=== PATIENT | male | born 1950 | race Caucasian/White ===

== ENCOUNTER 2017-06-20 09:58 | Emergency (ER) | payer MEDICARE, OTHER, SELFPAY ==
[2017-06-20 10:00] VITALS: BP 157/87; PULSE 80; RESP 17; TEMP 36.5; O2SAT 98; BMI 34.7
--- NOTE | 2017-06-20 10:08 | CT_ITS ---
STUDY: CT BRAIN WITHOUT CONTRAST REASON FOR EXAM: Male, 67 years old. Altered mental status. RADIATION DOSAGE (If Supplied By Facility): CTDIvol = ( 44.99 ) mGy, DLP = ( 812.98 ) mGycm TECHNIQUE: Transaxial CT imaging of the brain was performed without administration of intravenous contrast material. Individualized dose optimization techniques were used for this CT. COMPARISON: None. FINDINGS: Artifact from metallic earrings overlying the left earlobe. Normal calvarium. There is mild cerebral atrophy with widening of the extra-axial spaces and ventricular dilatation. Normal white matter tracts of the cerebral hemispheres. Normal basal ganglia and thalami. Normal brainstem. Normal cerebellum. There is no intracranial hemorrhage. There are no findings of an acute ischemic infarction. Normal visualized paranasal sinuses. CT/Brain/Head without Contrast IMPRESSION: Chronic involutional changes of the brain. Electronically Signed: Keagan Long MD at 11:21 EDT Tel [phone], Service support ,
--- NOTE | 2017-06-20 10:08 | RAD_ITS ---
STUDY: X-RAY CHEST REASON FOR EXAM: Male, 67 years old. Shortness of breath and dyspnea. TECHNIQUE: Single AP portable view of the chest. COMPARISON: Comparison is made with prior study dated June 28, 2015. FINDINGS: EKG electrodes are seen. The lungs are clear and expanded. There is no demonstrated pleural abnormality. Sternal cerclage wires and vascular clips are present from a prior sternotomy and coronary artery bypass graft procedure (CABG). Normal mediastinum and ursula. Normal visualized pulmonary arteries. Normal visualized aortic arch and descending thoracic aorta. There are diffuse degenerative changes of the visualized thoracic spine. Normal visualized ribs, clavicles, and shoulders. There is no demonstrated abnormality of the visualized soft tissue structures of the upper abdomen. RAD/Chest 1 View (Portable) IMPRESSION: No acute abnormality is seen. Electronically Signed: Keagan Long MD at 10:49 EDT Tel [phone], Service support ,
--- NOTE | 2017-06-20 10:09 | EKG12_ITS ---
Test Reason : CP Blood Pressure : / mmHG Vent. Rate : 082 BPM Atrial Rate : 082 BPM P-R Int : 154 ms QRS Dur : 102 ms QT Int : 390 ms P-R-T Axes : 059 072 108 degrees QTc Int : 455 ms Normal sinus rhythm Nonspecific T wave abnormality Abnormal ECG Confirmed by ANTHONY BACK, JACKIE ([id number]), subeditor JERRY GONZALEZ ([id number]) on 06/21/2017 2:26:46 PM Referred By: BRENDA/MAXIMUS Confirmed By:JACKIE CRUZ MD
[2017-06-20 10:22] LABS: Absolute Lymphocyte Count 2.92 X10^3/ul (0.83-4.51); Absolute Neutrophil Count 8.3 X10^3/uL (2.0-7.7); Basophil# 0.03 X10^3/uL; Basophil% 0.2 % (0-1); Eosinophil# 0.15 X10^3/uL; Eosinophils% 1.2 % (0-5); Hematocrit 38.8 % (40-54); Hemoglobin 12.8 g/dl (13.0-16.5); Lymphocyte # 2.92 X10^3/ul (4.0); Lymphocyte % 22.9 % (19-41); Mean Corpuscular Hgb 28.7 pg (27.0-32.0); Mean Platelet Vol. 9.3 fl (6.2-12.0); Monocyte# 1.26 X10^3/uL; Monocyte% 9.9 % (0-10); Neutrophil # 8.27 X10^3/uL (2.7-7.7); Neutrophil % 64.7 % (47-70); POSITIVE COUNT NO; POSITIVE DIFFERENTIAL NO; POSITIVE MORPHOLOGY NO; Platelet Count 343 K/mm3 (150-450); RBC Distribution Width CV 13.2 % (11.6-14.6); RBC Distribution Width SD 40.9 fl (35.1-43.9); Red Blood Count 4.46 M/mm3 (4.6-6.2); White Blood Count 12.8 K/mm3 (4.4-11.0)
--- NOTE | 2017-06-20 10:22 | ED.RN ---
PT ALSO HAVING PSYCHOSIS PERIODS. TALKING ABOUT SHOOTING HIMSELF. PT TEARFUL IN ROOM
--- NOTE | 2017-06-20 10:22 | NURSING ---
NO LW OR POA
--- NOTE | 2017-06-20 10:34 | ED.VISSUMM ---
- ER Visit Summary Date of Service: 06/20/17 Chief Complaint: [] Anxiety nervousness concern for cost for possible dialysis, suicidal ideation History of Present Illness: The patient is a 67 M [] has multiple medical problems including diabetes heart disease renal insufficiency he has had multiple visits recently to the physician's office he has been told that he needs to see a nephrology for further management of his renal insufficiency and at some point may require dialysis apparently was further explained to him he needs ongoing care management options. He lives with his at home he has been progressively more nervous and worried about the cost of healthcare, his ultimate prognosis, he states he does not wish to put on dialysis, he reports directly that he feels if he is a financial and physical and health burden to his and he verbalized to the according to the that he wants to put a bag over his head and shoot himself. There are guns at home. His general health has been very good recently per the he has had no fever cough chest pain abdominal pain his vital signs weights and blood sugar management has been recorded and are all within normal range Physical Examination: [] And alert there is no confusion he knows where he is who he has he knows the is answering questions appropriately he admits to being quite anxious and nervous about all of the above his HEENT exam is unremarkable his neck is supple lungs are clear heart tones are normal abdomen soft nontender upper lower extremities unremarkable his posterior shoulder area scratch ramirez were he has been scratching that there is no lesions here, neurologically is awake alert answering questions he is oriented ?3, he admits to being anxious and nervous about the above but there is no hallucinations and no psychomotor agitation Test Results: [] Emergency Department Course and Treatment: []taking buspirone for anxiety that is not helping her complaints given all the above is multiple medical problems screening labs are obtained I have asked mental health services see him he will be started on Ativan 1 mg p.o. His labs are generally unremarkable except his creatinine is 3.75, his lipase is elevated 825 he remains hemodynamically stable see the rest of the lab studies and CT reports The patient I spoke with the patient's primary care physician Dr. Lemus he reports the patient's most recent creatinine was 3.55 and he has a history of elevated lipase from an admission to [facility] recently he was worked up extensively for that he was not found to have pancreatitis and the cause of the elevated lipase remains unclear the patient is having really GI symptoms or abdominal pain and the does not report any alcohol abuse The suicidal ideation all the above he is medically stable for management by mental health services will be contacted to see him Has been seen by mental health services a long conversation with patient and the the patient is not suicidal now they develop an outpatient management plan for him which includes close follow-up in the local clinics counseling sessions etc. the will remove all the guns from the home and the patient return for change in symptoms and the is comfortable discharge home see the mental health counseling note Treatment Plan: [] Disposition: [] Pending mental health services evaluation Impression: [] Suicidal ideation resolved see above, renal insufficiency, elevated lipase, anxiety, depression, history of hypertension diabetes congestive heart failure This note was generated with [employer] dictation software. It may contain incorrect words, spelling, and punctuation that were not noted in review of the chart prior to signing ED Disposition - Plan for ED Patient: Chief Complaint: Confusion Referrals: Davon Lemus MD [Primary Care Provider] -
--- NOTE | 2017-06-20 10:36 | NURSING ---
CALLED CRISIS AND TALKED TO ANDREW.
[2017-06-20 10:37] LABS: AST(SGOT) 20 U/L (15-37); Alanine Aminotransfer ALT/SGPT 28 U/L (16-61); Albumin, Serum 3.7 g/dL (3.2-5.0); Alkaline Phosphatase 53 U/L (45-117); Anion Gap 11 (5-15); BUN 95 mg/dL (7-18); BUN/Creat Ratio 25.3 RATIO (10-20); Bilirubin, Direct 0.16 mg/dL (0.00-0.30); Calcium,Total 8.3 mg/dL (8.5-10.1); Chloride 98 mmol/L (98-107); Creatinine, Serum 3.76 mg/dL (0.70-1.30); EST Glomerular Filtration Rate 17 mL/min (>60); Est Glom Filt Rate - Afr Amer 21 mL/min (>60); Estimated Creatinine Clearance 19.33 ml/min; Globulin 4.5 g/dL (2.2-4.2); Glucose 78 mg/dL (74-106); Lipase 827 U/L (73-393); Potassium 3.7 mmol/L (3.5-5.1); Protein, Total 8.2 g/dL (6.4-8.2); Sodium Level 139 mmol/L (136-145)
[2017-06-20] MEDS: 0.9% Normal Saline 1,000 ML 150 ML IV (10:38)
[2017-06-20] MEDS: LORazepam 1 MG Tablet PO (10:44)
[2017-06-20 10:46] LABS: Bacteria 0 SEEN /hpf (None Seen); Mucous, Urine 0 SEEN /hpf (<or=2+); Red Blood Cells-Urine 0 SEEN /hpf (0-5)
[2017-06-20 10:52] LABS: Color, Urine Yellow (Yellow); Glucose, Dipstick Normal (Normal); Ketone-Dipstick Negative (Negative); Leukocyte Esterase-Dipstick Negative /ul (Negative); Nitrite-Dipstick Negative (Negative); Occult Blood-Urine 10 /ul (Negative); Protein-Dipstick 500 mg/dl (Negative); Specific Gravity, Urine 1.015 (1.002-1.030); Urine Bilirubin Dipstick Negative (Negative); Urine Clarity Clear (Clear); Urine Urobilinogen Normal (Normal)
[2017-06-20 11:01] LABS: Squamous Epithelial Cells - UA 0-5 SEEN /hpf (0-5); White Blood Cells 0-5 SEEN /hpf (0-5)
[2017-06-20 12:09] VITALS: BP 134/73; PULSE 68; RESP 16; O2SAT 96
--- NOTE | 2017-06-20 13:06 | NURSING ---
crisis in er
--- NOTE | 2017-06-20 13:16 | ED.RN ---
pt feeling depressed about situation. pt stating to that he would shoot himself and was scratching himself. pt tearful in the room and upset that told staff about depression ideations. pt feels like he is being a burden to financially and physically.
--- NOTE | 2017-06-20 14:41 | ED.DEP ---
ED Disposition - Plan for ED Patient: Chief Complaint: Confusion Instructions: Recognizing Suicide Warning Signs in Yourself, Depression and Suicide in Older Adults Referrals: Davon Lemus MD [Primary Care Provider] -
[2017-06-20 15:53] VITALS: BP 144/65; RESP 18
== END 2017-06-20 15:54 | disposition home or self-care (01) ==
PROVIDERS: Emergency Provider Emergency Medicine; Family Provider Internal Medicine; PCP Internal Medicine
DX: N17.9 Acute kidney failure, unspecified (principal); R45.851 Suicidal ideations; I11.0 Hypertensive heart disease with heart failure; I50.9 Heart failure, unspecified; R74.8 Abnormal levels of other serum enzymes; I25.10 Atherosclerotic heart disease of native coronary artery without angina pectoris; E11.9 Type 2 diabetes mellitus without complications; F32.9 Major depressive disorder, single episode, unspecified; F41.9 Anxiety disorder, unspecified; Z79.82 Long term (current) use of aspirin; Z79.4 Long term (current) use of insulin; Z79.899 Other long term (current) drug therapy
CPT/HCPCS: 70450; 71045; 80048; 80076; 81001; 83690; 85025; 93005; 96360; 96361; 99283; J7030; A4216

== ENCOUNTER → 2017-07-29 08:05 | Outpatient (CLI) | payer MEDICARE, OTHER, SELFPAY ==
[2017-07-29 09:12] LABS: Hemoglobin 10.8 g/dl (13.0-16.5); Mean Corp Hgb Conc 31.8 g/gl (32-36); Mean Corpuscular Hgb 28.8 pg (27.0-32.0); Mean Corpuscular Volume 90.7 fL (80-94); Mean Platelet Vol. 9.5 fl (6.2-12.0); Platelet Count 316 K/mm3 (150-450); RBC Distribution Width CV 14.1 % (11.6-14.6); RBC Distribution Width SD 45.8 fl (35.1-43.9); Red Blood Count 3.75 M/mm3 (4.6-6.2); White Blood Count 7.3 K/mm3 (4.4-11.0)
[2017-07-29 09:14] LABS: Scan Indicated on CBC? Y/N NO
[2017-07-29 09:22] LABS: Protein, Urine (Random) 127.1 mg/dL (<11.9); Protein:Creat Ratio 2806 mg/g CRE (0-200)
[2017-07-29 09:42] LABS: Albumin, Serum 3.4 g/dL (3.2-5.0); BUN 53 mg/dL (7-18); BUN/Creat Ratio 21.9 RATIO (10-20); Calcium,Total 8.5 mg/dL (8.5-10.1); Chloride 112 mmol/L (98-107); Creatinine, Serum 2.42 mg/dL (0.70-1.30); EST Glomerular Filtration Rate 29 mL/min (>60); Est Glom Filt Rate - Afr Amer 35 mL/min (>60); Glucose 88 mg/dL (74-106); Phosphorus 3.4 mg/dL (2.5-4.9); Sodium Level 145 mmol/L (136-145)
[2017-07-29 09:51] LABS: PTHIN 117.3 pg/mL (18.4-80.1); Vitamin D,25 Hydroxy 14.7 ng/mL (29.95-100.01)
== END ==
PROVIDERS: Family Provider Internal Medicine; PCP Internal Medicine; Visit Provider Internal Medicine Nephrology
DX: N18.4 Chronic kidney disease, stage 4 (severe) (principal); D64.9 Anemia, unspecified
CPT/HCPCS: 36415; 80069; 82306; 82570; 83970; 84156; 85027

== ENCOUNTER → 2017-11-01 07:14 | Outpatient (CLI) | payer MEDICARE, OTHER, SELFPAY ==
[2017-11-01 08:58] LABS: Protein, Urine (Random) 224.5 mg/dL (<11.9); Protein:Creat Ratio 2708 mg/g CRE (0-200)
[2017-11-01 09:02] LABS: Anion Gap 8 (5-15); BUN 60 mg/dL (7-18); BUN/Creat Ratio 29.7 RATIO (10-20); Calcium,Total 8.5 mg/dL (8.5-10.1); Chloride 112 mmol/L (98-107); Creatinine, Serum 2.02 mg/dL (0.70-1.30); EST Glomerular Filtration Rate 35 mL/min (>60); Est Glom Filt Rate - Afr Amer 43 mL/min (>60); Glucose 163 mg/dL (74-106); Potassium 4.4 mmol/L (3.5-5.1); Sodium Level 144 mmol/L (136-145)
== END ==
PROVIDERS: Family Provider Internal Medicine; PCP Internal Medicine; Visit Provider Internal Medicine Nephrology
DX: N18.4 Chronic kidney disease, stage 4 (severe) (principal); R80.9 Proteinuria, unspecified
CPT/HCPCS: 36415; 80048; 82570; 84156

== ENCOUNTER → 2018-02-24 11:34 | Outpatient (CLI) | payer MEDICARE, OTHER, SELFPAY ==
[2018-02-24 10:38] VITALS: BMI 36.4
[2018-02-24 13:16] LABS: AST(SGOT) 18 U/L (15-37); Alanine Aminotransfer ALT/SGPT 28 U/L (16-61); Albumin, Serum 3.1 g/dL (3.2-5.0); Alkaline Phosphatase 43 U/L (45-117); Anion Gap 14 (5-15); BUN 60 mg/dL (7-18); BUN/Creat Ratio 30.6 RATIO (10-20); Bilirubin, Direct 0.12 mg/dL (0.00-0.30); Calcium,Total 8.7 mg/dL (8.5-10.1); Chloride 109 mmol/L (98-107); Cholesterol 224 mg/dL (200); Creatinine, Serum 1.96 mg/dL (0.70-1.30); EST Glomerular Filtration Rate 36 mL/min (>60); Est Glom Filt Rate - Afr Amer 44 mL/min (>60); Globulin 3.9 g/dL (2.2-4.2); Glucose 184 mg/dL (74-106); High Density Lipoprotein 35 mg/dL; Potassium 4.4 mmol/L (3.5-5.1); Sodium Level 145 mmol/L (136-145); Triglycerides 241 mg/dL; Very Low Density Lipoprotein 48 mg/dL (5-40)
== END ==
PROVIDERS: Internal Medicine Cardiovascular Disease; Family Provider Internal Medicine; PCP Internal Medicine; Referring Provider Internal Medicine Nephrology; Visit Provider Internal Medicine Nephrology
DX: I25.10 Atherosclerotic heart disease of native coronary artery without angina pectoris (principal); N18.4 Chronic kidney disease, stage 4 (severe); E78.00 Pure hypercholesterolemia, unspecified
CPT/HCPCS: 36415; 80048; 80061; 80076

== ENCOUNTER → 2018-04-08 07:05 | Outpatient (CLI) | payer MEDICARE, OTHER, SELFPAY ==
[2018-02-24 10:38] VITALS: BMI 36.4
[2018-04-08 08:38] LABS: AST(SGOT) 18 U/L (15-37); Alanine Aminotransfer ALT/SGPT 23 U/L (16-61); Albumin, Serum 2.9 g/dL (3.2-5.0); Alkaline Phosphatase 40 U/L (45-117); Bilirubin, Direct 0.09 mg/dL (0.00-0.30); Cholesterol 251 mg/dL (200); Globulin 3.8 g/dL (2.2-4.2); High Density Lipoprotein 37 mg/dL; Protein, Total 6.7 g/dL (6.4-8.2); Triglycerides 298 mg/dL; Very Low Density Lipoprotein 60 mg/dL (5-40)
== END ==
PROVIDERS: Family Provider Internal Medicine; PCP Internal Medicine; Referring Provider Internal Medicine Cardiovascular Disease; Visit Provider Internal Medicine Cardiovascular Disease
DX: E78.5 Hyperlipidemia, unspecified (principal); I25.10 Atherosclerotic heart disease of native coronary artery without angina pectoris
CPT/HCPCS: 36415; 80061; 80076

== ENCOUNTER → 2018-06-23 10:40 | Outpatient (CLI) | payer MEDICARE, OTHER, SELFPAY ==
[2018-05-28 15:51] VITALS: BMI 36.4
--- NOTE | 2018-06-23 10:43 | VDLE_ITS ---
Reason For Study: LEG SWELLING RIGHT LEFT CFV is compressible, spontaneous, phasic, CFV is compressible, spontaneous, phasic, competent and demonstrates normal competent, and demonstrates normal augmentation. augmentation. Procedure FV is compressible, spontaneous, phasic, Exam performed in department. competent and demonstrates normal A preliminary report was called and/or faxed augmentation. to Dr. Green. POP V is compressible, spontaneous, phasic, competent and demonstrates normal augmentation. T/P Trunk is compressible. PTV is compressible. LT PerV is compressible. GSV harvested. Interpretation Summary There is no evidence of left lower extremity deep vein thrombosis. Surgically harvested left great saphenous vein Normal flow patterns right common femoral vein. Ordering Physician: Miguel A Green Referring Physician: Davon Lemus M.D. Performed By: Polly Hargrove RVT
== END ==
PROVIDERS: Family Provider Internal Medicine; PCP Internal Medicine; Visit Provider Internal Medicine Cardiovascular Disease
DX: M79.89 Other specified soft tissue disorders (principal)
CPT/HCPCS: 93971

== ENCOUNTER → 2018-07-10 14:11 | Outpatient (CLI) | payer MEDICARE, OTHER, SELFPAY ==
[2018-07-10 10:13] VITALS: BMI 37.3
[2018-07-10 16:41] LABS: Absolute Lymphocyte Count 1.55 X10^3/ul (0.83-4.51); Absolute Neutrophil Count 6.6 X10^3/uL (2.0-7.7); Basophil# 0.03 X10^3/uL; Basophil% 0.3 % (0-1); Eosinophil# 0.18 X10^3/uL; Hematocrit 37.8 % (40-54); Hemoglobin 11.8 g/dl (13.0-16.5); Lymphocyte # 1.55 X10^3/ul (4.0); Lymphocyte % 16.8 % (19-41); Mean Corp Hgb Conc 31.2 g/gl (32-36); Mean Corpuscular Hgb 27.6 pg (27.0-32.0); Mean Corpuscular Volume 88.3 fL (80-94); Mean Platelet Vol. 9.7 fl (6.2-12.0); Monocyte# 0.68 X10^3/uL; Monocyte% 7.4 % (0-10); Neutrophil # 6.61 X10^3/uL (2.7-7.7); Neutrophil % 71.8 % (47-70); Platelet Count 334 K/mm3 (150-450); RBC Distribution Width SD 44.2 fl (35.1-43.9); Red Blood Count 4.28 M/mm3 (4.6-6.2); White Blood Count 9.2 K/mm3 (4.4-11.0)
[2018-07-10 16:44] LABS: POSITIVE COUNT NO; POSITIVE DIFFERENTIAL NO; POSITIVE MORPHOLOGY NO
[2018-07-10 17:31] LABS: Anion Gap 8 (5-15); BUN 38 mg/dL (7-18); BUN/Creat Ratio 15.2 RATIO (10-20); Calcium,Total 8.2 mg/dL (8.5-10.1); Chloride 106 mmol/L (98-107); EST Glomerular Filtration Rate 28 mL/min (>60); Est Glom Filt Rate - Afr Amer 33 mL/min (>60); Glucose 290 mg/dL (74-106); Potassium 4.4 mmol/L (3.5-5.1); Sodium Level 138 mmol/L (136-145)
== END ==
PROVIDERS: Family Provider Internal Medicine; PCP Internal Medicine; Visit Provider Internal Medicine Cardiovascular Disease
DX: I25.10 Atherosclerotic heart disease of native coronary artery without angina pectoris (principal); Z95.1 Presence of aortocoronary bypass graft; Z95.5 Presence of coronary angioplasty implant and graft
CPT/HCPCS: 36415; 80048; 85025

== ENCOUNTER → 2018-07-23 06:17 | Outpatient (CLI) | payer MEDICARE, OTHER, SELFPAY ==
[2018-07-10 10:13] VITALS: BMI 37.3
--- NOTE | 2018-07-23 10:22 | STRESSREP ---
Stress Test Report Date: 07-23-18 Procedure: Pharmacologic stress nuclear imaging study Indications: Chest pain; shortness of breath/dyspnea; CAD; status post PCI; status post CABG Consent: Per the patient Procedure: The patient underwent pharmacologic (Regadenoson) evaluation with a peak heart rate of 92 beats per minute (60 %predicted maximal heart rate) and a peak blood pressure of 169/88 mmHg. The baseline ECG demonstrated normal sinus rhythm; nonspecific ST/T wave abnormality. The peak pharmacologic ECG demonstrated continued nonspecific ST/T wave abnormality. There were no cardiac dysrhythmias pretest, during pharmacologic infusion, or recovery. There was no complaint of chest discomfort during pharmacologic infusion or recovery. The examination was discontinued secondary to completion of protocol. Impression: 1. Pharmacologic (Regadenoson) evaluation 2. Peak pharmacologic ECG with continued nonspecific ST/T wave abnormality. 3. There were no cardiac dysrhythmias pretest, during pharmacologic infusion, or recovery. 4. Nuclear images pending Myocardial perfusion imaging study: Technique: The patient was injected with 14.7 millicuries of technetium 99m Cardiolite and subsequently rest SPECT Cardiolite nuclear imaging was obtained in the horizontal long, vertical long, and short axis views. The patient underwent pharmacologic (Regadenoson) evaluation with a peak heart rate of 92 beats per minute (60 % percent predicted maximal heart rate) and a peak blood pressure of 169/88 mmHg. The patient was injected with 44.5 millicuries of technetium 99m Cardiolite and subsequently stress SPECT Cardiolite nuclear imaging was obtained in the horizontal long, vertical long, and short axis views. A gated Cardiolite study at peak stress was obtained. Interpretation: Rest and stress SPECT Cardiolite nuclear imaging status post realignment, normalization, and attenuation correction demonstrate the appearance of extra cardiac/gastrointestinal tracer uptake near the inferior segments. There is also notation of diminished tracer uptake in portions of the basal toward mid inferior segments as well as the inferior apical segments without significant change between rest and stress.. There is diminished and systolic thickening and brightening in the aforementioned areas. There is diminished myocardial thickening and inward wall motion in the aforementioned areas. The reported LVEF is 53 %. Impression: 1. Rest and stress SPECT Cardiolite nuclear imaging demonstrate myocardial perfusion changes appearing compatible with an area of previous myocardial injury/infarction involving portions of the basal towards mid inferior and the inferior apical segments without associated myocardial perfusion changes consider diagnostic for associated stress-induced myocardial ischemia. Of note, an element of soft tissue attenuation/artifact or gastrointestinal tracer uptake/retraction contributing to the aforementioned findings cannot necessarily be excluded. 2. The gated Cardiolite study reports an LVEF of 53 %. This note was generated with [employer] software. It may contain incorrect words, spelling, and punctuation that were not noted in checking the note before signing.
--- NOTE | 2018-07-23 10:27 | STRESSREP_ITS ---
Stress Test Report Date: 07-23-18 Procedure: Pharmacologic stress nuclear imaging study Indications: Chest pain; shortness of breath/dyspnea; CAD; status post PCI; status post CABG Consent: Per the patient Procedure: The patient underwent pharmacologic (Regadenoson) evaluation with a peak heart rate of 92 beats per minute (60 %predicted maximal heart rate) and a peak blood pressure of 169/88 mmHg. The baseline ECG demonstrated normal sinus rhythm; nonspecific ST/T wave abnormality. The peak pharmacologic ECG demonstrated continued nonspecific ST/T wave abnormality. There were no cardiac dysrhythmias pretest, during pharmacologic infusion, or recovery. There was no complaint of chest discomfort during pharmacologic infusion or recovery. The examination was discontinued secondary to completion of protocol. Impression: 1. Pharmacologic (Regadenoson) evaluation 2. Peak pharmacologic ECG with continued nonspecific ST/T wave abnormality. 3. There were no cardiac dysrhythmias pretest, during pharmacologic infusion, or recovery. 4. Nuclear images pending Myocardial perfusion imaging study: Technique: The patient was injected with 14.7 millicuries of technetium 99m Cardiolite and subsequently rest SPECT Cardiolite nuclear imaging was obtained in the horizontal long, vertical long, and short axis views. The patient underwent pha rmacologic (Regadenoson) evaluation with a peak heart rate of 92 beats per minute (60 % percent predicted maximal heart rate) and a peak blood pressure of 169/88 mmHg. The patient was injected with 44.5 millicuries of technetium 99m Cardiolite and subsequently stress SPECT Cardiolite nuclear imaging was obtained in the horizontal long, vertical long, and short axis views. A gated Cardiolite study at peak stress was obtained. Interpretation: Rest and stress SPECT Cardiolite nuclear imaging status post realignment, normalization, and attenuation correction demonstrate the appearance of extra cardiac/gastrointestinal tracer uptake near the inferior segments. There is also notation of diminished tracer uptake in portions of the basal toward mid inferior segments as well as the inferior apical segments without significant change between rest and stress.. There is diminished and systolic thickening and brightening in the aforementioned areas. There is diminished myocardial thickening and inward wall motion in the aforementioned areas. The reported LVEF is 53 %. Impression: 1. Rest and stress SPECT Cardiolite nuclear imaging demonstrate myocardial perfusion changes appearing compatible with an area of previous myocardial injury/infarction involving portions of the basal towards mid inferior and the inferior apical segments without associated myocardial perfusion changes cons ider diagnostic for associated stress-induced myocardial ischemia. Of note, an element of soft tissue attenuation/artifact or gastrointestinal tracer uptake/retraction contributing to the aforementioned findings cannot necessarily be excluded. 2. The gated Cardiolite study reports an LVEF of 53 %. This note was generated with [employer] software. It may contain incorrect words, spelling, and punctuation that were not noted in checking the note before signing.
== END ==
PROVIDERS: Family Provider Internal Medicine; PCP Internal Medicine; Referring Provider Internal Medicine Cardiovascular Disease; Visit Provider Internal Medicine Cardiovascular Disease
DX: I25.10 Atherosclerotic heart disease of native coronary artery without angina pectoris (principal); Z95.1 Presence of aortocoronary bypass graft; Z95.5 Presence of coronary angioplasty implant and graft
CPT/HCPCS: 78452; 93017; A9500; A4216; J2785

== ENCOUNTER → 2018-08-26 07:37 | Outpatient (CLI) | payer MEDICARE, OTHER, SELFPAY ==
[2018-08-11 14:38] VITALS: BMI 39.5
[2018-08-26 10:08] LABS: Hemoglobin 10.9 g/dl (13.0-16.5); Mean Corp Hgb Conc 32.1 g/gl (32-36); Mean Corpuscular Hgb 27.8 pg (27.0-32.0); Mean Corpuscular Volume 86.7 fL (80-94); Mean Platelet Vol. 9.8 fl (6.2-12.0); Platelet Count 249 K/mm3 (150-450); RBC Distribution Width CV 14.4 % (11.6-14.6); Red Blood Count 3.92 M/mm3 (4.6-6.2); White Blood Count 9.1 K/mm3 (4.4-11.0)
[2018-08-26 10:09] LABS: Scan Indicated on CBC? Y/N NO
[2018-08-26 10:36] LABS: Hemoglobin A1c 8.7 % (4.2-6.3)
[2018-08-26 10:42] LABS: AST(SGOT) 18 U/L (15-37); Alanine Aminotransfer ALT/SGPT 21 U/L (16-61); Anion Gap 8 (5-15); BUN 59 mg/dL (7-18); BUN/Creat Ratio 21.4 RATIO (10-20); Calcium,Total 8.5 mg/dL (8.5-10.1); Chloride 110 mmol/L (98-107); Cholesterol 191 mg/dL (200); Creatinine, Serum 2.76 mg/dL (0.70-1.30); EST Glomerular Filtration Rate 25 mL/min (>60); Est Glom Filt Rate - Afr Amer 30 mL/min (>60); Glucose 172 mg/dL (74-106); High Density Lipoprotein 32 mg/dL; Potassium 4.4 mmol/L (3.5-5.1); Sodium Level 143 mmol/L (136-145); Triglycerides 209 mg/dL; Very Low Density Lipoprotein 42 mg/dL (5-40)
== END ==
PROVIDERS: Family Provider Internal Medicine; PCP Internal Medicine; Referring Provider Internal Medicine Cardiovascular Disease; Visit Provider Internal Medicine Cardiovascular Disease
DX: E11.42 Type 2 diabetes mellitus with diabetic polyneuropathy (principal); E78.2 Mixed hyperlipidemia; Z79.899 Other long term (current) drug therapy
CPT/HCPCS: 36415; 80048; 80061; 83036; 84450; 84460; 85027

== ENCOUNTER → 2018-09-01 07:24 | Outpatient (CLI) | payer MEDICARE, OTHER, SELFPAY ==
[2018-08-11 14:38] VITALS: BMI 39.5
[2018-09-01 09:08] LABS: AST(SGOT) 18 U/L (15-37); Alanine Aminotransfer ALT/SGPT 25 U/L (16-61); Albumin, Serum 2.6 g/dL (3.2-5.0); Alkaline Phosphatase 47 U/L (45-117); Anion Gap 10 (5-15); BUN 44 mg/dL (7-18); BUN/Creat Ratio 16.9 RATIO (10-20); Bilirubin, Direct 0.11 mg/dL (0.00-0.30); Calcium,Total 8.3 mg/dL (8.5-10.1); Chloride 108 mmol/L (98-107); Cholesterol 191 mg/dL (200); EST Glomerular Filtration Rate 26 mL/min (>60); Est Glom Filt Rate - Afr Amer 32 mL/min (>60); Globulin 4.1 g/dL (2.2-4.2); Glucose 180 mg/dL (74-106); High Density Lipoprotein 34 mg/dL; Phosphorus 4.2 mg/dL (2.5-4.9); Potassium 4.9 mmol/L (3.5-5.1); Protein, Total 6.7 g/dL (6.4-8.2); Sodium Level 144 mmol/L (136-145); Triglycerides 296 mg/dL; Very Low Density Lipoprotein 59 mg/dL (5-40)
== END ==
PROVIDERS: Family Provider Internal Medicine; PCP Internal Medicine; Referring Provider Internal Medicine Cardiovascular Disease; Visit Provider Internal Medicine Cardiovascular Disease
DX: I12.9 Hypertensive chronic kidney disease with stage 1 through stage 4 chronic kidney disease, or unspecified chronic kidney disease (principal); N18.4 Chronic kidney disease, stage 4 (severe); I25.10 Atherosclerotic heart disease of native coronary artery without angina pectoris; E78.5 Hyperlipidemia, unspecified; Z95.5 Presence of coronary angioplasty implant and graft
CPT/HCPCS: 36415; 80048; 80061; 80076; 84100

== ENCOUNTER → 2018-11-02 10:48 | Outpatient (CLI) | payer MEDICARE, OTHER, SELFPAY ==
[2018-08-11 14:38] VITALS: BMI 39.5
[2018-11-02 11:37] LABS: Protein, Urine (Random) 750.2 mg/dL (<11.9); Protein:Creat Ratio 11315 mg/g CRE (0-200)
[2018-11-02 11:46] LABS: Albumin, Serum 2.9 g/dL (3.2-5.0); BUN 59 mg/dL (7-18); BUN/Creat Ratio 21.6 RATIO (10-20); Calcium,Total 8.7 mg/dL (8.5-10.1); Chloride 108 mmol/L (98-107); Creatinine, Serum 2.73 mg/dL (0.70-1.30); EST Glomerular Filtration Rate 25 mL/min (>60); Est Glom Filt Rate - Afr Amer 30 mL/min (>60); Glucose 201 mg/dL (74-106); Phosphorus 4.5 mg/dL (2.5-4.9); Potassium 4.4 mmol/L (3.5-5.1); Sodium Level 141 mmol/L (136-145)
== END ==
PROVIDERS: Family Provider Internal Medicine; PCP Internal Medicine; Visit Provider Internal Medicine Nephrology
DX: N18.4 Chronic kidney disease, stage 4 (severe) (principal)
CPT/HCPCS: 36415; 80069; 82570; 84156

== ENCOUNTER 2018-12-10 19:55 | Inpatient (IN) | payer MEDICARE, OTHER, SELFPAY ==
[2018-11-05 10:26] VITALS: BMI 38.0
[2018-12-10 19:56] VITALS: BP 131/78; PULSE 71; RESP 18; TEMP 36.7; O2SAT 91; BMI 36.9
[2018-12-10 20:24] LABS: Absolute Lymphocyte Count 1.26 X10^3/uL (0.83-4.51); Absolute Neutrophil Count 8.1 X10^3/uL (2.0-7.7); Basophil# 0.03 X10^3/uL; Basophil% 0.3 % (0-1); Eosinophil# 0.07 X10^3/uL; Eosinophils% 0.7 % (0-5); Hematocrit 30.9 % (40-54); Hemoglobin 9.8 g/dL (13.0-16.5); Lymphocyte # 1.26 X10^3/ul (4.0); Mean Corp Hgb Conc 31.7 g/dL (32-36); Mean Corpuscular Hgb 28.4 pg (27.0-32.0); Mean Corpuscular Volume 89.6 fL (80-94); Mean Platelet Vol. 9.8 fl (6.2-12.0); Monocyte# 0.88 X10^3/uL; Monocyte% 8.4 % (0-10); NRBC Flagged by Analyzer 0.2 % (0-5); Neutrophil % 76.8 % (47-70); Platelet Count 254 K/mm3 (150-450); RBC Distribution Width CV 14.5 % (11.6-14.6); RBC Distribution Width SD 47.2 fl (35.1-43.9); Red Blood Count 3.45 M/mm3 (4.6-6.2); White Blood Count 10.5 K/mm3 (4.4-11.0)
[2018-12-10 20:41] LABS: Anion Gap 8 (5-15); BUN 52 mg/dL (7-18); BUN/Creat Ratio 16.4 RATIO (10-20); Calcium,Total 8.1 mg/dL (8.5-10.1); Chloride 110 mmol/L (98-107); Creatinine, Serum 3.18 mg/dL (0.70-1.30); EST Glomerular Filtration Rate 21 mL/min (>60); Est Glom Filt Rate - Afr Amer 25 mL/min (>60); Estimated Creatinine Clearance 22.54 ml/min; Glucose 124 mg/dL (74-106); Sodium Level 143 mmol/L (136-145)
--- NOTE | 2018-12-10 21:29 | RAD_ITS ---
STUDY: X-RAY CHEST REASON FOR EXAM: Male, 68 years old. Chest pain. Shortness of breath. TECHNIQUE: Single AP portable view of the chest. COMPARISON: June 20, 2017. FINDINGS: Lungs are mildly hypoexpanded. There is diffuse perihilar interstitial and alveolar infiltrates. There is no demonstrated pleural abnormality. The heart is enlarged. Again seen is evidence of prior CABG procedure. Normal mediastinum and ursula. There is central vascular prominence. Normal visualized aortic arch and descending thoracic aorta. No visualized osseous changes. There is no demonstrated abnormality of the visualized soft tissue structures of the upper abdomen. RAD/Chest 1 View (Portable) IMPRESSION: Bilateral perihilar pneumonia versus pulmonary edema. Electronically Signed: Luis E Fishman DO at 22:01 EDT Tel [phone], Service support ,
--- NOTE | 2018-12-10 21:29 | EKG12_ITS ---
Test Reason : CP Blood Pressure : / mmHG Vent. Rate : 066 BPM Atrial Rate : 066 BPM P-R Int : 162 ms QRS Dur : 100 ms QT Int : 440 ms P-R-T Axes : 050 059 112 degrees QTc Int : 461 ms Normal sinus rhythm Nonspecific T wave abnormality Prolonged QT Abnormal ECG Confirmed by ISAAC BACK, DENICE ([id number]), managing editor KYLE SIDDIQI ([id number]) on 12/12/2018 11:44:51 AM Referred By: MICHELINE/DIOR Confirmed By:ANTONY GRAY MD
[2018-12-10] MEDS: Aspirin 81 MG TAB.CHEW 324 MG PO (21:34)
[2018-12-10 21:35] VITALS: BP 153/92; PULSE 111; RESP 27; O2SAT 92; O2SAT 93
[2018-12-10 22:40] LABS: BNP,B-Type NATRIURETIC PEPTIDE 459.7 pg/mL (0-100)
[2018-12-10 23:00] VITALS: BP 140/65; PULSE 75; RESP 312; O2SAT 95
--- NOTE | 2018-12-10 23:26 | PCM.HP.STD ---
Problem List (1) CHF exacerbation Status: Acute Qualifiers: Heart failure type: unspecified Qualified Code(s): I50.9 - Heart failure, unspecified (2) Chest pain Status: Acute Qualifiers: Chest pain type: unspecified Qualified Code(s): R07.9 - Chest pain, unspecified (3) EDGARDO (acute kidney injury) Status: Acute (4) Pure hypercholesterolemia Status: Chronic (5) Type 2 diabetes mellitus Status: Chronic Qualifiers: Diabetes mellitus mcc insulin use: with mcc use Diabetes mellitus complication status: with other specified complication Qualified Code(s): E11.69 - Type 2 diabetes mellitus with other specified complication; 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 transplanted heart: [place] heart Qualified Code(s): I25.10 - Atherosclerotic heart disease of [place] coronary artery without angina pectoris Comment: S/P multivessel PTCA/stent and subsequent CABG with SVG to LCx, RCA and diagonal branch with subsequent SVG graft closure to the LCx and diagonal branch; (10) S/P CABG x 3 Status: Chronic Comment: CABG-SVG to diagonal, SVG to obtuse marginal & SVG to PDA 07/12; (11) GERD (gastroesophageal reflux disease) Status: Chronic Qualifiers: Esophagitis presence: esophagitis presence not specified Qualified Code(s): K21.9 - Gastro-esophageal reflux disease without esophagitis (12) Anxiety Status: Chronic (13) CKD (chronic kidney disease), stage III Status: Chronic History of Present Illness Date of Admission: 12/10/18 Chief Complaint: Dyspnea, chest pain The patient is a 68 y/o M w/ PMHx: CKD stage III, Chronic normocytic anemia, obesity, Chronic COPD, CAD s/p CABG and PCI, HTN, HLD, DASHA, Diabetes mellitus type II, Hx Diastolic Dysfunction, Anxiety and Depression who presents to the [facility] ED on 12/10/18 with history of several week history of progressively worsening dyspnea, worse with exertion, orthopnea, mild ankle edema but unclear if weight gain with worsening status on evening of ED presentation with concurrent midsternal chest discomfort described as a tightness, rated 3-5 in severity but more severe on evening of presentation rated 6-9 out of 10, associate with severe dyspnea, worse with any exertional attempts, improved with rest with diaphoresis associated with no nausea or emesis. He has been attempting to use a CPAP at home but has not had improvement. He does state that when he feels very short of breath with exertion he has had mild dizziness occasionally. Work-up in the ED included T 98, heart rate 111, BP 153/92, respiratory rate 27, 92% on 3 L nasal cannula, CBC with W BC 10.5, heme globin 9.8, platelet 254 with left shift, BMP with chloride 110, BUN/creatinine 52/3.18, glucose 124, troponin less than 0.015, BNP 459.7, chest x-ray with bilateral perihilar low pneumonia versus pulmonary edema, EKG with nonspecific changes SR without acute evidence of ischemia. In the ED patient administered aspirin and lasix therapy. Past Medical History Past Medical History (Chronic Problems): Chronic Problems (Last Reviewed 11/05/18 @ 10:26 by Pili May) CKD (chronic kidney disease), stage III (Chronic) Pure hypercholesterolemia (Chronic) Type 2 diabetes mellitus (Chronic) Presence of stent in coronary artery (Chronic ~08/25/14) 07/18/10, PTCA/stent to mid to distal LCx artery; 08/17/10 PTCA/stent to proximal to mid RCA; PTCA of distal RCA with DEX September 2010; PTCA with EULALIO to mid distal AV groove left CFX 08/13 Essential hypertension (Chronic) Nonrheumatic aortic (valve) stenosis (Chronic) Nonspecific abnormal unspecified cardiovascular function study (Chronic) Diastolic dysfunction (Chronic) Other meterman (current) drug therapy (Chronic) Nicotine abuse (Chronic) Atherosclerotic heart disease of [place] coronary artery without angina pectoris (Chronic) S/P multivessel PTCA/stent and subsequent CABG with SVG to LCx, RCA and diagonal branch with subsequent SVG graft closure to the LCx and diagonal branch; S/P CABG x 3 (Chronic ~07/21/12) CABG-SVG to diagonal, SVG to obtuse marginal & SVG to PDA 07/12; GERD (gastroesophageal reflux disease) (Chronic) Anxiety (Chronic) Medical History: Medical History (Last Reviewed 11/05/18 @ 10:26 by Pili May) Pure hypercholesterolemia (Chronic) E78.00 Type 2 diabetes mellitus (Chronic) E11.9 Presence of stent in coronary artery (Chronic) Onset Date: ~08/25/14 Z95.5 07/18/10, PTCA/stent to mid to distal LCx artery; 08/17/10 PTCA/stent to proximal to mid RCA; PTCA of distal RCA with DEX September 2010; PTCA with EULALIO to mid distal AV groove left CFX 08/13 Essential hypertension (Chronic) I10 Nonrheumatic aortic (valve) stenosis (Chronic) I35.0 Diastolic dysfunction (Chronic) I51.9 Atherosclerotic heart disease of [place] coronary artery without angina pectoris (Chronic) I25.10 S/P multivessel PTCA/stent and subsequent CABG with SVG to LCx, RCA and diagonal branch with subsequent SVG graft closure to the LCx and diagonal branch; Fatigue R53.83 Precordial chest pain R07.2 Shortness of breath R06.02 Sleep apnea G47.30 COPD (chronic obstructive pulmonary disease) J44.9 Diverticulitis K57.92 Aortic valve disease (Inactive) I35.9 Coronary atherosclerosis of [place] coronary artery (Inactive) I25.10 Diabetes mellitus (Inactive) E11.9 HTN (hypertension) (Inactive) I10 Allergies carvedilol [From Coreg] Allergy (Severe, Verified 12/10/18 19:58) vomiting sertraline HCl [From Zoloft] Allergy (Verified 12/10/18 19:58) Unknown isosorbide [From Imdur] Adverse Reaction (Severe, Verified 12/10/18 19:58) Unknown valsartan [From Diovan] Adverse Reaction (Severe, Verified 12/10/18 19:58) Possible angioedema, throat swelling bupropion HCl [From Wellbutrin] Adverse Reaction (Verified 12/10/18 19:58) gets mean citalopram Adverse Reaction (Verified 12/10/18 19:58) Other gabapentin Adverse Reaction (Verified 12/10/18 19:58) Other Home Medications: Ambulatory Orders Medication Instructions Recorded Aspirin [Ecotrin] 81 mg PO DAILY 10/27/13 Nitroglycerin (INPATIENT USE) 0.4 mg SUBLINGUAL Q5M PRN 10/27/13 [Nitrostat] Ammonium Lactate [Amlactin] 1 applic TP PRN PRN 06/20/17 allopurinol 100 mg tablet 100 mg PO QDAY 06/24/17 insulin aspart (U-100) 100 unit/mL 25 unit SC .COMPLEX ml 06/25/17 (3 mL) subcutaneous pen insulin glargine (U-100) 100 50 unit SC BID ml 06/25/17 unit/mL subcutaneous solution coenzyme Q10 400 mg capsule 400 mg PO BID #90 cap 09/13/17 amlodipine 5 mg tablet 5 mg PO BID #60 tab 02/24/18 berberine-herbal comb no.18 capsule 1 cap PO BID cap 02/24/18 fenofibrate nanocrystallized 160 160 mg PO DAILY #30 tab 02/24/18 mg tablet fluoxetine 10 mg tablet 10 mg PO DAILY 05/28/18 isosorbide mononitrate ER 30 mg 30 mg PO QAM #30 tab 07/10/18 tablet,extended release 24 hr metoprolol tartrate 25 mg tablet 50 mg PO BID #120 tab 07/10/18 furosemide 20 mg tablet 20 mg PO BID #60 tab 08/11/18 furosemide 40 mg tablet 40 mg PO BID #60 tab 08/11/18 Surgical History: Surgical History (Last Reviewed 11/05/18 @ 10:26 by Pili May) S/P CABG x 3 (Chronic) Onset Date: ~07/21/12 Z95.1 CABG-SVG to diagonal, SVG to obtuse marginal & SVG to PDA 07/12; Presence of coronary angioplasty implant and graft Z95.5 07/18/10, PTCA/stent to mid to distal LCx artery; 08/17/10 PTCA/stent to proximal to mid RCA; PTCA of distal RCA with DEX September 2010; PTCA with EULALIO to mid distal AV groove left CFX 08/13 History of bilateral knee replacement Z96.653 History of carpal tunnel repair Z98.890 History of cholecystectomy Z90.49 History of partial colectomy Z90.49 History of repair of rotator cuff Z98.890 S/P PTCA (percutaneous transluminal coronary angioplasty) (Inactive) Z98.61 07/18/10, PTCA/stent to mid to distal LCx artery; 08/17/10 PTCA/stent to proximal to mid RCA; PTCA of distal RCA with DEX September 2010; PTCA with EULALIO to mid distal AV groove left CFX 08/13 Surgical History: angioplasty, arthroscopy, knee, coronary bypass surgery, - - Patient status post CABG x3, serial PCI, bilateral total knee replacement, rotator cuff repair, partial colectomy, cholecystectomy, carpal tunnel surgery. Psychiatric History: No pertinent psych hx Lives: Spouse/ Significant Other Smoking Status: Former smoker - Patient quit cigarette tobacco usage greater than 30 years prior Tobacco Use: Non-smoker Alcohol: None Drugs: None - *Family History Maternal Family History: Family History (Last Reviewed 11/05/18 @ 10:26 by Pili May) Father CAD (coronary artery disease) Afib Aortic valve replaced Mother Cancer Son Lupus History Items: Cancer Paternal Family History: Family History (Last Reviewed 11/05/18 @ 10:26 by Pili May) Father CAD (coronary artery disease) Afib Aortic valve replaced Mother Cancer Son Lupus History Items: High Cholesterol, Heart Disease - Atrial fibrillation; valvular heart disease status post aVR; , Hypertension Review of Systems Constitutional: Reports: Malaise, Weakness, Fatigue. Denies: Chills, Fever, Weight Change HEENT: Denies: Head Aches, Sinus Congestion, Sinus Drainage Cardiovascular: Reports: Chest Pain, Chest Tightness, Edema, Light Headedness, Orthopnea. Denies: Chest Pressure, Heaviness, Palpitations, Syncope Respiratory: Reports: Shortness of Breath, Shortness of breath upon exertion. Denies: Cough, Shortness of breath at rest, Sputum production, Wheezing Gastrointestinal: Denies: Abdominal Pain, Nausea, Vomiting Genitourinary: Denies: Dysuria Musculoskeletal: Reports: Joint Pain. Denies: Joint Tenderness Skin: Denies: Rash, Wounds Neurological: Denies: Numbness, Tingling, Focal weakness Psychiatric: Denies: Anxiety, Depression, Homicidal Ideations, Suicidal Ideations Hematologic/ Lymphatic: Reports: Anemia, Easy Bruising, Easy Bleeding VTE Information - Inpt Only VTE Present on Admission: No VTE Mechan Device Prophylaxis: SCD's VTE Pharm Prophylaxis ordered?: Yes Patient Problems: Active and Suspected Problems (Last Reviewed 11/05/18 @ 10:26 by Pili May) CHF exacerbation (Acute) Chest pain (Acute) EDGARDO (acute kidney injury) (Acute) Subjective: Patient seated upright in the ED bed, oxygen supplementation on, mildly increased respiratory rate, notes currently no chest discomfort but still mildly short of breath, recent IV Lasix administration. Objective: Physical Examination: General: awake, alert, oriented x 3 and cooperative, seated upright in the ED bed, oxygen supplementation in place, evidence of dyspnea as increased respiratory rate and some accessory muscle usage. Skin: Extremely wright skin color, turgor, no icterus, cyanosis. HEENT: AT/NC, EOMI, PERRLA, MMM, no carotid bruits, difficult to assess JVD secondary to neck thickness, habitus. Lungs: Diminished breath sounds throughout, greater bilateral bases, mild rales bases, no rhonchi or wheezing, mildly increased respiratory rate and some accessory muscle usage. Heart: Regular rate and rhythm; no gallop, rub audible. Abdomen: soft, obese, NTTP, ND, normal BS, no HSM; ever, habitus makes examination difficult. Extremities: no cyanosis, clubbing, malaise bilateral ankle edema, pitting. Neurological: patient awake, alert, oriented x 3; cognitive function intact; pupils equally reactive to light and accomodation; cranial nerves II-XII grossly normal, moving all 4 extremities, no focal deficits, strength severely global decrease secondary to acute presentation. Psychiatric: affect appears fatigued, no acute evidence of depressive or anxiety feelings. - Physical Exam Vital Signs Temp Pulse Resp BP Pulse Ox 98.0 F 111 H 27 H 153/92 H 93 12/10/18 19:56 12/10/18 21:35 12/10/18 21:35 12/10/18 21:35 12/10/18 21:35 Oxygen Flow Rate (L/min) 3 Oxygen Delivery Method Nasal Cannula Weight: 250 lb Body Mass Index (BMI) 36.9 Finger Stick Blood Glucose 269 Laboratory Tests Past 24 Hrs 12/10/18 12/10/18 12/10/18 20:20 20:20 20:20 WBC 10.5 RBC 3.45 L Hgb 9.8 L Hct 30.9 L MCV 89.6 MCH 28.4 MCHC 31.7 L RDW Std Deviation 47.2 H RDW Coeff of Judi 14.5 Plt Count 254 MPV 9.8 Immature Gran % (Auto) 1.800 H Neut % (Auto) 76.8 H Lymph % (Auto) 12.0 L [place] % (Auto) 8.4 Eos % (Auto) 0.7 Baso % (Auto) 0.3 Absolute Neuts (auto) 8.1 H Absolute Lymphs (auto) 1.26 Nucleated RBC % 0.2 Sodium 143 Potassium 4.0 Chloride 110 H Carbon Dioxide 25.0 Anion Gap 8 BUN 52 H Creatinine 3.18 H Estim Creat Clear Calc 22.54 Est GFR (MDRD) Af Amer 25 L Est GFR (MDRD) Non-Af 21 L BUN/Creatinine Ratio 16.4 Glucose 124 H Calcium 8.1 L Troponin I < 0.015 B-Natriuretic Peptide 459.7 H Assessment/Plan All Active Problems (Last Reviewed 11/05/18 @ 10:26 by Pili May) CHF exacerbation (Acute) Chest pain (Acute) EDGARDO (acute kidney injury) (Acute) Choledocholithiasis with acute cholecystitis (Acute) Abnormal LFTs (Acute) The patient is a 68 y/o M w/ PMHx: CKD stage III, Chronic normocytic anemia, obesity, Chronic COPD, CAD s/p CABG and PCI, HTN, HLD, DASHA, Diabetes mellitus type II, Hx Diastolic Dysfunction, Anxiety and Depression who presents to the [facility] ED on 12/10/18 with history of several week history of progressively worsening dyspnea, worse with exertion, orthopnea, mild ankle edema but unclear if weight gain with worsening status on evening of ED presentation with concurrent midsternal chest discomfort described as a tightness. 1. Acute Decompensated CHF, Unclear Type but history of Diastolic Dysfunction: Work-up in the ED included T 98, heart rate 111, BP 153/92, respiratory rate 27, 92% on 3 L nasal cannula, CBC with W BC 10.5, heme globin 9.8, platelet 254 with left shift, BMP with chloride 110, BUN/creatinine 52/3.18, glucose 124, troponin less than 0.015, BNP 459.7, chest x-ray with bilateral perihilar low pneumonia versus pulmonary edema, EKG with nonspecific changes SR without acute evidence of ischemia. Patient administered IV lasix in the ED, will admit to PCU, maintain on cardiac telemetry obtain cardiac enzyme series, obtain serial EKGs, continue IV lasix diuresis, monitor I/Os, maintain on intake restriction, continue medical therapy w/ asa, statin, BB. Will obtain TSH and magnesium level. Most recent ECHO noted 06/07/17 w/ normal LV size, moderately increased wall thickness, systolic function mildly decreased, EF 40%, no regional wall motion abnormalities, LV diastolic function parameters normal at that time, mild AVS. Cardiology consulted, pending. PRN morphine to decrease afterload, continue oxygen supplementation, if necessary will position w/ upright position with legs off bed to decrease preload. 2. Chest Pain: EKG in ED sinus rhythm with nonspecific changes with no acute evidence of ischemia, CXR w/ evidence of volume overload, initial trop normal x1. place on a monitored bed to assure no acute myocardial infarction with serial cardiac enzymes and EKGs. She did have recent 07/23/18 pharmacological stress testing which demonstrated myocardial perfusion changes compatible with area of prior NV with EF 53%. ASA, NG, morphine. FLP in AM. Mag pending. 3. Acute kidney injury on CKD stage III: Secondary to hypervolemic presentation, #1. Admission BUN/Cr 52/3.18, prior baseline creatinine noted to be 2.5-2.7 over the last year, has been steadily increasing since 2014. Given acute presentation with volume overload, defer IV fluids, diuresis as noted, will hold any other further nephrotoxic medications and repeat chemistry in AM. If no improvement would plan FeNa and renal ultrasound assessment. 4. CAD: s/p CABG x 3, PCI, maintain on aspirin, not on statin per current regimen, metoprolol, not on WILMER inhibitor or are likely secondary to renal disease. 5. Hypertension: Continue home regimen including amlodipine, isosorbide, metoprolol, IV Lasix as noted, PRN hydralazine. 6. Hyperlipidemia: From current list on statin, clarification pending, FLP in a.m. 7. Chronic normocytic anemia: Admission hemoglobin 9.8, baseline 9-10, stable, trend. 8. Anxiety and depression: We will continue home fluoxetine regimen. 9. Chronic COPD: ATC duonebs, PRN albuterol, HOB, IS parameters. 10. Diabetes mellitus type II: Hold oral home regimen, continue home insulin regimen, ADA diet, hemoglobin A1c pending, nutrition consultation for education and teaching, accu checks w/ ISS. 11. Obesity: Weight loss and lifestyle changes encouraged, nutrition consulted. 12. DASHA: Continue home CPAP usage nightly. 13. DVT prophylaxis: SCDs, heparin. 14. 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 Discussed CODE status at length including difference between FULL code, DNR-CCA and DNR-CC status. Following discussions about the differences in these status, patient notes that he may be amenable to intubation as well as interventions initially but if no early quick response preference to transition to DNR status. Advanced Care Planning Face to Face Time: 17 minutes. Code Visit Inpatient E&M: 94663 Init Hosp L3 Procedures: 33007 Advncd Care Plan 30 Min
--- NOTE | 2018-12-10 23:35 | ED.VISSUMM ---
- ER Visit Summary Date of Service: 12/10/18 Chief Complaint: Shortness of breath History of Present Illness: The patient is a 68 M with shortness of breath for the past week. Worse today. Worse with ambulation. He has associated dizziness and not sleeping well. He is using his CPAP, but it is not helping. He had similar symptoms like this with his coronary disease and required stenting. He has an extensive history of coronary disease and is status post bypass. History of CHF. Denies history of PE. Physical Examination: Afebrile. Heart rate 111. 93% O2. Heart regular rate and rhythm. Lungs diminished in all pavon. Abdomen soft and nontender. Extremities show trace edema, symmetric. Legs are nontender. Skin appears unremarkable. Test Results: EKG shows sinus rhythm rate 66. Nonspecific T wave changes. No sign of acute ischemia or infarction pattern. Chest x-ray showed bibasilar pneumonia versus pulmonary edema. Hemoglobin 9.8. Creatinine 3.18, stable. Troponin normal. BNP 459. Emergency Department Course and Treatment: Patient treated with aspirin and placed on a monitor. He remained stable on reevaluation. Work-up indicated some fluid overload. He was treated with Lasix. Patient will need inpatient evaluation and was discussed with the hospitalist for further care. Treatment Plan: As above Disposition: Admission Impression: 1. Chest pain 2. CHF This note was generated with [employer] dictation software. It may contain incorrect words, spelling, and punctuation that were not noted in review of the chart prior to signing ED Disposition - Plan for ED Patient: Referrals: Davon Lemus MD [Primary Care Provider] -
[2018-12-10] MEDS: Furosemide 40 MG/4 ML Vial IV (23:44)
[2018-12-11] VITALS (24 sets, daily range): BP systolic 129–150; BP diastolic 72–122; PULSE 58–118; RESP 12–30; TEMP 36.7–36.9; O2SAT 90–98; BMI 39.4; BMI 39.5
--- NOTE | 2018-12-11 00:52 | ECHOCS_ITS ---
Reason For Study: CHF Procedure This was a 2D Doppler, Color Flow transthoracic echocardiogram. The study was technically difficult. Exam performed portable in patient room. Left Ventricle Normal LV size. Concentric left ventricular hypertrophy. The estimated ejection fraction is 65 %. Diastolic function is indeterminate. No regional wall motion abnormalities noted. Right Ventricle Normal RV size. Normal systolic function. Atria The left atrium is mildly enlarged. Normal right atrium. No doppler evidence for ASD. Mitral Valve There is moderate mitral annular calcification. There is no mitral valve stenosis. No mitral valve insufficiency. Tricuspid Valve There is no tricuspid stenosis. Unable to estimate RV systolic pressure due to inadequate jet, pulmonary artery pressure probably normal. Aortic Valve Trisinus/trileaflet aortic valve. Moderate diffuse aortic valve thickening. There is moderate to severe . Mild (1+) aortic valve insufficiency. Pulmonic Valve There is no pulmonic valvular stenosis. No pulmonic valve insufficiency. Great Vessels Normal aortic root. Pericardium/Pleural No pericardial effusion. Medication Diluted definity 3ml given slow IV push to enhance endocardial definition. MMode/2D Measurements & Calculations LVIDd: 5.5 cm IVSd: 1.2 cm LVOT diam: 2.0 cm LVIDs: 3.7 cm LVPWd: 1.1 cm FS: 33.1 % LVOT area: 3.3 cm2 Ao root diam: 3.1 cm LAV(MOD-bp): 75.0 ml LVAd ap4: 21.9 cm2 LAV(MOD-bp) Indexed: 33.1 ml/m2 EDV(MOD-sp4): 65.2 ml LAV(MOD-sp2): 67.9 ml EDV(sp4-el): 64.2 ml LAV(MOD-sp4): 67.3 ml LA dimension(2D): 4.8 cm LA A4 area: 22.8 cm2 Time Measurements MV dec time: 0.23 sec Doppler Measurements & Calculations MV E max jhon: 142.5 cm/sec Lat Peak E' Jhon: 7.2 cm/sec Med Peak E' Jhon: 5.0 cm/sec MV A max jhon: 89.0 cm/sec E/E' lat: 19.9 E/E' med: 28.6 MV E/A: 1.6 Ao V2 max: 278.7 cm/sec LV V1 max: 84.9 cm/sec SV(LVOT): 71.3 ml Ao max P.1 mmHg LV V1 max P.9 mmHg Ao V2 mean: 206.1 cm/sec LV V1 mean P.6 mmHg Ao mean P.0 mmHg LV V1 mean: 59.3 cm/sec Ao V2 VTI: 69.8 cm LV V1 VTI: 21.9 cm LUIS ARMANDO(I,D): 1.0 cm2 LUIS ARMANDO(V,D): 0.99 cm2 PA V2 max: 111.6 cm/sec Interpretation Summary Diluted definity 3ml given slow IV push to enhance endocardial definition. The estimated ejection fraction is 65 %. Diastolic function is indeterminate. There is moderate to severe . The study was technically difficult. Ordering Physician: Virginia Bustamante Referring Physician: LIZ RODRIGUEZ Performed By: Margie Miller RDCS
[2018-12-11 01:44] LABS: Magnesium 2.1 mg/dL (1.6-2.6)
[2018-12-11 01:56] LABS: Bedside Glucose 99 mg/dL (70-110)
[2018-12-11 02:03] LABS: Hemoglobin A1c 9.1 % (4.2-6.3)
[2018-12-11] MEDS: 0.9% NaCl Peripheral Flush Adult/Peds IV ×3 (05:37→21:12)
[2018-12-11] MEDS: Furosemide 40 MG/4 ML Vial IV ×3 (05:37→21:12)
--- NOTE | 2018-12-11 05:55 | EKG12_ITS ---
Test Reason : CP ADMIT Blood Pressure : / mmHG Vent. Rate : 067 BPM Atrial Rate : 067 BPM P-R Int : 156 ms QRS Dur : 100 ms QT Int : 428 ms P-R-T Axes : 050 059 107 degrees QTc Int : 452 ms Normal sinus rhythm Nonspecific T wave abnormality Abnormal ECG When compared with ECG of 10-DEC-2018 20:04, MANUAL COMPARISON REQUIRED, DATA IS UNCONFIRMED Confirmed by ISAAC BACK, DENICE ([id number]), image editor JERRY GONZALEZ ([id number]) on 12/15/2018 4:08:57 PM Referred By: DR MCPHERSON Confirmed By:ANTONY GRAY MD
[2018-12-11 06:35] LABS: Absolute Lymphocyte Count 1.34 X10^3/uL (0.83-4.51); Absolute Neutrophil Count 7.9 X10^3/uL (2.0-7.7); Basophil# 0.03 X10^3/uL; Basophil% 0.3 % (0-1); Hematocrit 29.6 % (40-54); Hemoglobin 9.5 g/dL (13.0-16.5); Lymphocyte # 1.34 X10^3/ul (4.0); Lymphocyte % 12.8 % (19-41); Mean Corp Hgb Conc 32.1 g/dL (32-36); Mean Corpuscular Hgb 28.7 pg (27.0-32.0); Mean Corpuscular Volume 89.4 fL (80-94); Mean Platelet Vol. 9.4 fl (6.2-12.0); Monocyte% 8.6 % (0-10); NRBC Flagged by Analyzer 0 % (0-5); Neutrophil # 7.92 X10^3/uL (2.7-7.7); Neutrophil % 75.3 % (47-70); Platelet Count 264 K/mm3 (150-450); RBC Distribution Width CV 14.4 % (11.6-14.6); RBC Distribution Width SD 46.5 fl (35.1-43.9); Red Blood Count 3.31 M/mm3 (4.6-6.2); White Blood Count 10.5 K/mm3 (4.4-11.0)
[2018-12-11 06:59] LABS: Anion Gap 10 (5-15); BUN 52 mg/dL (7-18); BUN/Creat Ratio 16.9 RATIO (10-20); Chloride 111 mmol/L (98-107); Cholesterol 169 mg/dL (200); Creatinine, Serum 3.07 mg/dL (0.70-1.30); EST Glomerular Filtration Rate 22 mL/min (>60); Est Glom Filt Rate - Afr Amer 26 mL/min (>60); Estimated Creatinine Clearance 23.35 ml/min; Glucose 132 mg/dL (74-106); High Density Lipoprotein 32 mg/dL; Potassium 3.9 mmol/L (3.5-5.1); Sodium Level 145 mmol/L (136-145); Thyroid Stim Hormone (TSH) 1.95 uIU/mL (0.358-3.74); Triglycerides 165 mg/dL; Very Low Density Lipoprotein 33 mg/dL (5-40)
[2018-12-11] MEDS: Ipratropium/Albuterol Sulfate 3 ML AMPUL.NEB INHALATION ×3 (07:15→20:17)
--- NOTE | 2018-12-11 07:48 | CPS ---
0715....pt removed from Bipap and placed on nasal cannula at 4.5 lpm. Pt carmen nasal cannula well at this time. Pt informed to let nurse know if he feels any increase in S.O.B and would want to be placed back on Bipap. Nurse aware of change.
[2018-12-11] MEDS: Insulin Human 75/25 Kwickpen 36 UNIT SC ×3 (08:20→16:30)
[2018-12-11] MEDS: Allopurinol 100 MG Tablet PO (09:09)
[2018-12-11] MEDS: Aspirin E.C. 81 MG Tablet PO (09:09)
[2018-12-11] MEDS: Heparin Injection (Vial) 5,000 UNIT/ML VIAL 5000 UNIT SC ×2 (09:10→21:11)
[2018-12-11] MEDS: Metoprolol Tartrate 50 MG Tablet PO ×2 (09:10→21:13)
[2018-12-11 09:21] LABS: Bedside Glucose 126 mg/dL (70-110)
[2018-12-11] MEDS: amLODIPine 10 MG Tablet PO ×2 (10:05→21:13)
--- NOTE | 2018-12-11 10:05 | PCM.CONS.C ---
<Seymour Sousa - Last Filed: 12/11/18 12:40> Problem List (1) CHF exacerbation Status: Acute Qualifiers: Heart failure type: unspecified Qualified Code(s): I50.9 - Heart failure, unspecified (2) Chest pain Status: Acute Qualifiers: Chest pain type: unspecified Qualified Code(s): R07.9 - Chest pain, unspecified (3) CKD (chronic kidney disease), stage III Status: Chronic (4) Pure hypercholesterolemia Status: Chronic (5) Presence of stent in coronary artery Status: Chronic Comment: 07/18/10, PTCA/stent to mid to distal LCx artery; 08/17/10 PTCA/stent to proximal to mid RCA; PTCA of distal RCA with DEX September 2010; PTCA with EULALIO to mid distal AV groove left CFX 08/13 (6) Essential hypertension Status: Chronic (7) Atherosclerotic heart disease of [place] coronary artery without angina pectoris Status: Chronic Qualifiers: [place] vs. transplanted heart: [place] heart Qualified Code(s): I25.10 - Atherosclerotic heart disease of [place] coronary artery without angina pectoris Comment: S/P multivessel PTCA/stent and subsequent CABG with SVG to LCx, RCA and diagonal branch with subsequent SVG graft closure to the LCx and diagonal branch; (8) S/P CABG x 3 Status: Chronic Comment: CABG-SVG to diagonal, SVG to obtuse marginal & SVG to PDA 07/12; Reason for Consult Date of Consultation: 12/11/18 Reason for Consultation: Shortness of breath on exertion, CHF exacerbation, Chest pain History of Present Illness: The patient is a 68 year old M who presented to [facility] Emergency Department on 12/10/2018 for worsening shortness of breath over the past week. He has a history of coronary artery disease status post multivessel PTCA/stent in June 2010, July 2010, September 2010, and July 2014 and subsequent CABG in June 2012 with SVG to LCx, RCA and diagonal branch with subsequent SVG graft closure to the LCx and diagonal branch. He also has a history of aortic valve stenosis, diastolic dysfunction, hyperlipidemia, obstructive sleep apnea with CPAP therapy, chronic kidney disease, and obesity. Patient states since last cardiovascular office visit on 11/05/2018 he has had continual shortness of breath on exertion. This has worsened over the past week. He presented to the Emergency Department for further evaluation. His work-up in the Emergency Department showed a chest x-ray of bilateral perihilar pneumonia versus pulmonary edema, negative troponin, BNP of 459, hemoglobin 9.8 and creatinine 3.18. He was admitted for further evaluation. Cardiology was consulted for further management and input. Past Medical History Allergies/Adverse Reactions: Allergies carvedilol [From Coreg] Allergy (Severe, Verified 12/10/18 19:58) vomiting sertraline HCl [From Zoloft] Allergy (Verified 12/10/18 19:58) Unknown isosorbide [From Imdur] Adverse Reaction (Severe, Verified 12/10/18 19:58) Unknown valsartan [From Diovan] Adverse Reaction (Severe, Verified 12/10/18 19:58) Possible angioedema, throat swelling bupropion HCl [From Wellbutrin] Adverse Reaction (Verified 12/10/18 19:58) gets mean citalopram Adverse Reaction (Verified 12/10/18 19:58) Other gabapentin Adverse Reaction (Verified 12/10/18 19:58) Other Home Medications: Ambulatory Orders Medication Instructions Recorded Aspirin [Ecotrin] 81 mg PO DAILY 10/27/13 Nitroglycerin (INPATIENT USE) 0.4 mg SUBLINGUAL Q5M PRN 10/27/13 [Nitrostat] Ammonium Lactate [Amlactin] 1 applic TP PRN PRN 06/20/17 allopurinol 100 mg tablet 100 mg PO QDAY 06/24/17 insulin glargine (U-100) 100 36 unit SC TID ml 06/25/17 unit/mL subcutaneous solution coenzyme Q10 400 mg capsule 400 mg PO BID #90 cap 09/13/17 berberine-herbal comb no.18 capsule 1 cap PO BID cap 02/24/18 fenofibrate nanocrystallized 160 160 mg PO DAILY #30 tab 02/24/18 mg tablet fluoxetine 10 mg tablet 40 mg PO DAILY 05/28/18 metoprolol tartrate 25 mg tablet 50 mg PO BID #120 tab 07/10/18 furosemide 20 mg tablet 20 mg PO BID #60 tab 08/11/18 furosemide 40 mg tablet 40 mg PO BID #60 tab 08/11/18 Amlodipine [Norvasc] 10 mg PO BID 12/11/18 Insulin Glargine,Hum.rec.anlog 40 unit SQ BID 12/11/18 [Lantus] traZODone [Desyrel] 50 mg PO QHS PRN 12/11/18 Past Medical History (Chronic Problems): Chronic Problems (Last Reviewed 11/05/18 @ 10:26 by Pili May) CKD (chronic kidney disease), stage III (Chronic) Pure hypercholesterolemia (Chronic) Type 2 diabetes mellitus (Chronic) Presence of stent in coronary artery (Chronic ~08/25/14) 07/18/10, PTCA/stent to mid to distal LCx artery; 08/17/10 PTCA/stent to proximal to mid RCA; PTCA of distal RCA with DEX September 2010; PTCA with EULALIO to mid distal AV groove left CFX 08/13 Essential hypertension (Chronic) Nonrheumatic aortic (valve) stenosis (Chronic) Nonspecific abnormal unspecified cardiovascular function study (Chronic) Diastolic dysfunction (Chronic) Other half-way (current) drug therapy (Chronic) Nicotine abuse (Chronic) Atherosclerotic heart disease of [place] coronary artery without angina pectoris (Chronic) S/P multivessel PTCA/stent and subsequent CABG with SVG to LCx, RCA and diagonal branch with subsequent SVG graft closure to the LCx and diagonal branch; S/P CABG x 3 (Chronic ~07/21/12) CABG-SVG to diagonal, SVG to obtuse marginal & SVG to PDA 07/12; GERD (gastroesophageal reflux disease) (Chronic) Anxiety (Chronic) Surgical History: angioplasty, arthroscopy, knee, coronary bypass surgery, - - Patient status post CABG x3, serial PCI, bilateral total knee replacement, rotator cuff repair, partial colectomy, cholecystectomy, carpal tunnel surgery. Psychiatric History: No pertinent psych hx - *Family History Maternal Family History: Family History (Last Reviewed 11/05/18 @ 10:26 by Pili May) Father CAD (coronary artery disease) Afib Aortic valve replaced Mother Cancer Son Lupus History Items: Cancer Paternal Family History: Family History (Last Reviewed 11/05/18 @ 10:26 by Pili May) Father CAD (coronary artery disease) Afib Aortic valve replaced Mother Cancer Son Lupus History Items: High Cholesterol, Heart Disease - Atrial fibrillation; valvular heart disease status post aVR; , Hypertension Lives: Spouse/ Significant Other Smoking Status: Former smoker Tobacco Use: Non-smoker Alcohol: None Drugs: None Review of Systems - Review of Systems General: Reports: Fatigue, Weakness, Decreased Appetite. Denies: Fever Cardiovascular: Reports: Chest Discomfort at Rest, Chest Discomfort with Exertion, Shortness of Breath at Rest, Shortness of Breath with Exertion, Orthopnea, PND, Dizziness. Denies: Peripheral Edema, Palpitations, Lightheadedness, Near Syncope, Syncope, Orthostatic Symptoms, Claudication Respiratory: Denies: Cough Neurological: Reports: Dizziness Subjectve: Patient seen and evaluated. He does acknowledge some improvement in shortness of breath since initial presentation. However, he has not been as ambulatory. He denies any chest pain currently. Objective: Vital Signs Temp Pulse Resp BP Pulse Ox 98.2 F 118 H 18 133/79 H 92 12/11/18 09:04 12/11/18 09:10 12/11/18 09:04 12/11/18 09:10 12/11/18 09:04 Oxygen Flow Rate (L/min) 4.5 Oxygen Delivery Method Nasal Cannula Weight: 266 lb 5.094 oz Body Mass Index (BMI) 39.4 Finger Stick Blood Glucose 269 Intake and Output for Last 24 Hours 12/09/18 12/10/18 12/11/18 23:59 23:59 23:59 Intake Total 120 / 120 Output Total 950 / 950 Balance -830 / -830 General: Healthy Appearing, Awake, Alert, Oriented x 3, Cooperative, No Acute Distress HEENT: Atraumatic Oral: Moist Mucosa Neck: Supple, No JVD Lungs: Diminished Rohith Bases Cardiovascular: Regular Rhythm, Normal S1, Normal S2, No Rubs, No Gallops Murmur Murmur: Grade 3/6, Early Systolic, RLSB Vascular: No Carotid Bruits, Normal Radial Pulses, Normal Dorsalis Pedal Pulse Abdomen: Bowel Sounds Present, Soft, Non Tender, Distended Extremities: No Cyanosis, No Clubbing, No edema, Normal Capillary Refill Musculoskeletal: No Erythema Skin: No Rashes Neurological: No Focal Motor or Sensory Deficit Psych/Mental Status: Appropriate, Normal Affect 12/10/18 20:20: WBC 10.5, RBC 3.45 L, Hgb 9.8 L, Hct 30.9 L, MCV 89.6, MCH 28.4, MCHC 31.7 L, Plt Count 254, MPV 9.8, Immature Gran % (Auto) 1.800 H, Neut % (Auto) 76.8 H, Lymph % (Auto) 12.0 L, Hendricks % (Auto) 8.4, Eos % (Auto) 0.7, Baso % (Auto) 0.3, Absolute Neuts (auto) 8.1 H, Nucleated RBC % 0.2 12/10/18 20:20: Sodium 143, Potassium 4.0, Chloride 110 H, Carbon Dioxide 25.0, Anion Gap 8, BUN 52 H, Creatinine 3.18 H, Est GFR (MDRD) Af Amer 25 L, Est GFR (MDRD) Non-Af 21 L, BUN/Creatinine Ratio 16.4, Glucose 124 H, Calcium 8.1 L, Troponin I < 0.015 12/10/18 20:20: B-Natriuretic Peptide 459.7 H 12/11/18 01:12: Magnesium 2.1, Troponin I < 0.015 12/11/18 01:12: Hemoglobin A1c 9.1 H 12/11/18 04:34: Troponin I < 0.015 12/11/18 06:25: WBC 10.5, RBC 3.31 L, Hgb 9.5 L, Hct 29.6 L, MCV 89.4, MCH 28.7, MCHC 32.1, Plt Count 264, MPV 9.4, Immature Gran % (Auto) 2.000 H, Neut % (Auto) 75.3 H, Lymph % (Auto) 12.8 L, Hendricks % (Auto) 8.6, Eos % (Auto) 1.0, Baso % (Auto) 0.3, Absolute Neuts (auto) 7.9 H, Nucleated RBC % 0 12/11/18 06:25: Sodium 145, Potassium 3.9, Chloride 111 H, Carbon Dioxide 24.0, Anion Gap 10, BUN 52 H, Creatinine 3.07 H, Est GFR (MDRD) Af Amer 26 L, Est GFR (MDRD) Non-Af 22 L, BUN/Creatinine Ratio 16.9, Glucose 132 H, Calcium 8.0 L, Troponin I < 0.015, Triglycerides 165, Cholesterol 169, LDL Cholesterol 104, VLDL Cholesterol 33, HDL Cholesterol 32 L Rhythm: EKG: ECHO: 06/07/2017: 1. Left ventricle: The cavity size is normal. Wall thickness is mildly increased. Systolic function is mildly decreased by visual assessment. The estimate ejection fraction is 40%. There are no regional wall motion abnormalities. Left ventricular diastolic function parameters are normal. 2. Mitral valve: Mildly calcified annulus. Mildly thickened leaflets. There is no evidence for stenosis. 3. Aortic valve: There is mild stenosis. There is mild?moderate, 1?2+ regurgitation. Peak velocity (S): 2.7 m/sec. Mean gradient (S): 19 mmHg. Peak gradient (S): 30 mmHg. Dimensionless index: 0.44. 4. Pericardium, extracardiac: There is no pericardial effusion. 5. Inferior vena cava: The vessel is normal. The IVC collapses by greater than 50% with inspiration. Stress Test: 07/23/2018 Impression: 1. Pharmacologic (Regadenoson) evaluation 2. Peak pharmacologic ECG with continued nonspecific ST/T wave abnormality. 3. There were no cardiac dysrhythmias pretest, during pharmacologic infusion, or recovery. 4. Nuclear images pending Myocardial perfusion imaging study: Impression: 1. Rest and stress SPECT Cardiolite nuclear imaging demonstrate myocardial perfusion changes appearing compatible with an area of previous myocardial injury/infarction involving portions of the basal towards mid inferior and the inferior apical segments without associated myocardial perfusion changes consider diagnostic for associated stress-induced myocardial ischemia. Of note, an element of soft tissue attenuation/artifact or gastrointestinal tracer uptake/retraction contributing to the aforementioned findings cannot necessarily be excluded. 2. The gated Cardiolite study reports an LVEF of 53 %. Cardiac Cath: PCI: CT Surgery: Holter monitor: EPS: PPM: CXR: Chest CT Scan: Assessment/Plan 1. Acute on Chronic Congestive Heart Failure Patient's last echocardiogram at [facility] in May 2017 showed ejection fraction 40%. His chest x-ray is consistent with pulmonary congestion. His BNP is elevated at 459. At this time, he will continue with gentle diuresis with IV Lasix 40 mg q. 8 hours. We will await echocardiogram results to further assist treatment. 2. Atherosclerotic Coronary Artery Disease Patient does have a previous history of stenting and bypass x3 on 07/21/2012 at [facility]. His heart catheterization on 08/25/2014 at [facility] showed SVG to PDA as patent, SVG to first diagonal as 100% occluded, SVG to first OM as 100% occluded, and pre-existing stent to mid and distal circumflex as patent. His last heart catheterization at [facility] on 07/08/2016 showed patent SVG to RCA/PDA, estimate ejection fraction of 55-60%, no regional wall motion abnormalities, left main is normal, prior intervention of mid left circumflex with stented segment is patent, and proximal RCA with 100% in-stent stenosis. His last nuclear stress test from 07/23/2018 was negative for ischemia. He does acknowledge ongoing chest pain, which appears atypical in that it occurs at rest and with activity. His troponin has been negative x3. His EKGs do not reveal any acute ST changes. His known occluded bypass grafts in the setting of fluid volume overload may be contributing to his angina. At this time, he will continue current medical therapy and will continue to monitor. We will consider further intervention such as heart catheterization based on response to diuresis and ongoing chest pain baring in mind CKD. He will begin Ranexa 1000 mg p.o. twice daily to assist with chest pain. 3. Chronic Kidney Disease His creatinine level has been stable. This will have to be monitored closely. He may benefit from nephrology consult for ongoing diuretic management. Due to his chronic kidney disease nephrotoxic agents will need to be avoided. This does include WILMER inhibitors and ARB's, including Entresto. This will have to be monitored closely. 4. Aortic Valve Stenosis His echocardiogram in May 2017 showed mild?moderate aortic valve stenosis. He will undergo repeat echocardiogram to assess further well as evaluate LV function to help further guide treatment and management. 5. Hypertension Patient's blood pressure has been slightly elevated. He may benefit from continual afterload reduction to assist with fluid volume overload. However, given his aortic valve stenosis, hypotension will need to be avoided. At this time, he will continue Norvasc and metoprolol and we will continue to monitor and adjust accordingly. 6. Hyperlipidemia He will continue current cholesterol-lowering medication. His lipid panel this morning showed cholesterol: 169, HDL: 32, LDL: 104, and triglycerides: 165. 7. Right Lower Quadrant Pain Patient does acknowledge right lower quadrant pain. His abdomen does look distended. His abdominal ultrasound from 06/06/2017 showed hepatic steatosis and no acute sonographic abnormality of the upper abdomen. No ascites was noted. He does acknowledge that his abdomen is at baseline. This will be further evaluated by primary care team if indicated. Patient's care was discussed with Dr. Lozano who also personally evaluated patient. Thank you for allowing us to participate in the patients plan of care, if you have any questions please do not hesitate to call. This note was generated using a voice recognition system and there may be incorrect words, spelling or punctuation that were not noted when reviewing the office note prior to saving. <Rodri Lozano - Last Filed: 12/11/18 17:09> Reason for Consult History of Present Illness: The patient is a 68 year old M [] Past Medical History - *Family History Maternal Family History: Family History (Last Reviewed 11/05/18 @ 10:26 by Pili May) Father CAD (coronary artery disease) Afib Aortic valve replaced Mother Cancer Son Lupus Paternal Family History: Family History (Last Reviewed 11/05/18 @ 10:26 by Pili May) Father CAD (coronary artery disease) Afib Aortic valve replaced Mother Cancer Son Lupus Objective: Vital Signs Temp Pulse Resp BP Pulse Ox 98.1 F 72 18 142/75 H 93 12/11/18 16:32 12/11/18 16:32 12/11/18 16:32 12/11/18 16:32 12/11/18 16:32 Oxygen Flow Rate (L/min) 4.5 Oxygen Delivery Method Nasal Cannula Weight: 266 lb 5.094 oz Body Mass Index (BMI) 39.4 Finger Stick Blood Glucose 269 Intake and Output for Last 24 Hours 12/09/18 12/10/18 12/11/18 23:59 23:59 23:59 Intake Total 360 / 360 Output Total 2049 / 2049 Balance -1690 / -16912/10/18 20:20: WBC 10.5, RBC 3.45 L, Hgb 9.8 L, Hct 30.9 L, MCV 89.6, MCH 28.4, MCHC 31.7 L, Plt Count 254, MPV 9.8, Immature Gran % (Auto) 1.800 H, Neut % (Auto) 76.8 H, Lymph % (Auto) 12.0 L, Hendricks % (Auto) 8.4, Eos % (Auto) 0.7, Baso % (Auto) 0.3, Absolute Neuts (auto) 8.1 H, Nucleated RBC % 0.2 12/10/18 20:20: Sodium 143, Potassium 4.0, Chloride 110 H, Carbon Dioxide 25.0, Anion Gap 8, BUN 52 H, Creatinine 3.18 H, Est GFR (MDRD) Af Amer 25 L, Est GFR (MDRD) Non-Af 21 L, BUN/Creatinine Ratio 16.4, Glucose 124 H, Calcium 8.1 L, Troponin I < 0.015 12/10/18 20:20: B-Natriuretic Peptide 459.7 H 12/11/18 01:12: Magnesium 2.1, Troponin I < 0.015 12/11/18 01:12: Hemoglobin A1c 9.1 H 12/11/18 04:34: Troponin I < 0.015 12/11/18 06:25: WBC 10.5, RBC 3.31 L, Hgb 9.5 L, Hct 29.6 L, MCV 89.4, MCH 28.7, MCHC 32.1, Plt Count 264, MPV 9.4, Immature Gran % (Auto) 2.000 H, Neut % (Auto) 75.3 H, Lymph % (Auto) 12.8 L, Hendricks % (Auto) 8.6, Eos % (Auto) 1.0, Baso % (Auto) 0.3, Absolute Neuts (auto) 7.9 H, Nucleated RBC % 0 12/11/18 06:25: Sodium 145, Potassium 3.9, Chloride 111 H, Carbon Dioxide 24.0, Anion Gap 10, BUN 52 H, Creatinine 3.07 H, Est GFR (MDRD) Af Amer 26 L, Est GFR (MDRD) Non-Af 22 L, BUN/Creatinine Ratio 16.9, Glucose 132 H, Calcium 8.0 L, Troponin I < 0.015, Triglycerides 165, Cholesterol 169, LDL Cholesterol 104, VLDL Cholesterol 33, HDL Cholesterol 32 L 12/11/18 06:25: Total Bilirubin 0.40, Direct Bilirubin 0.15 Rhythm: EKG: ECHO: Stress Test: Cardiac Cath: PCI: CT Surgery: Holter monitor: EPS: PPM: CXR: Chest CT Scan: Assessment/Plan Pt. seen, evaluated and discussed with Seymour sousa APN. Agree with above. Will diurese patient and see if there is relief of chest discomfort. Pt. has 1/3 bypasses patent during last angiogram. The CP could be from underlying residual stenoses. Will try ranexa.
[2018-12-11] MEDS: FLUoxetine 10 MG Capsule 40 MG PO (11:03)
[2018-12-11] MEDS: Insulin Lispro 100 UNIT/ML INSULN.PEN SC ×3 (11:10→21:16)
[2018-12-11 11:15] LABS: Bedside Glucose 180 mg/dL (70-110)
--- NOTE | 2018-12-11 11:25 | CASEMGMT ---
LW/POA forms not in chart. SW spoke w/pt, let him know LW/POA not in chart. Pt states his can bring them in, SW explained when she does this we can copy and place in chart. STEWART Flores
--- NOTE | 2018-12-11 11:26 | CASEMGMT ---
MARCO A ASTORGA assessment: Face to Face with patient for initial transition planning/care coordination assessment. MARCO A ASTORGA introduced self and role at [facility], pt voices understanding and consents to assessment at this time. Pt is sitting up in chair in no distress at this time on 5liters nc at this time. Pt states has not been on home oxygen in the past. Pt is A/Ox4 at this time and answers all questions appropriately at this time. Care providers, pharmacy, and demographics verified. Pt presented to ED 12/10/18 for increased SOB over the last week or so. Pt has a hx of CHF and DM II as well as an extensive heart history, including multiple stents and CABG x3. PCP: [facility] Specialists: Cyndee, nephmelissa; Peter, cardio Bry Pharmacy: [facility] Insurance[facility] A/B, [facility], [place] Pres[place]it[place] and [facility], pt is not sure but is sure he has coverage Living Will/HPOA: Pt states has LW/HPOA and is aware that they are not on file at [facility] at this time. Pt states his will be bringing them in. Pt states , Diana Gardner, is HPOA. LNOK: Diana Gardner, /HPOA Living Arrangements: Pt states lives with on main level of 2 story home with 2 steps into home and states no concerns at home at this time. Pt states is independent with ADL's. Transportation: Pt states drives self and states no transportation concerns at this time. DME/HHC: Pt states has a walker, DM ortho shoes, and 3 cpaps. Pt states he is interested in home oxygen and feels like he has needed in the past. After provided with local in-network DME, pt states he would like [employer] for home oxygen, if qualifies. Pt states no hx of HHC but has been to [facility] in the past s/p CABG. Pt states no concerns with going home at time of discharge. Pt is retired. Pt states quit smoking about 30 years ago and states does not drink ETOH. Pt states no further concerns/needs at this time. CM to follow PT/OT, home oxygen need, and for any further discharge planning/needs. Advised pt to ask for CM if any further questions/concerns/needs arise, voices understanding. Pt Goal: Home Plan: [place] MARCO A ASTORGA
[2018-12-11 12:08] LABS: AST(SGOT) 17 U/L (15-37); Alanine Aminotransfer ALT/SGPT 33 U/L (16-61); Albumin, Serum 2.3 g/dL (3.2-5.0); Alkaline Phosphatase 54 U/L (45-117); Bilirubin, Direct 0.15 mg/dL (0.00-0.30); Globulin 4.4 g/dL (2.2-4.2); Protein, Total 6.7 g/dL (6.4-8.2)
--- NOTE | 2018-12-11 13:11 | PN_ITS ---
Patient Problems: Active and Suspected Problems (Last Reviewed 11/05/18 @ 10:26 by Pili May) CHF exacerbation (Acute) Chest pain (Acute) EDGARDO (acute kidney injury) (Acute) Subjective: Patient seen and examined. Continues to have shortness of breath and remains on supplemental oxygen. Reports his breathing is improved when he is sitting upright. Lower extremity edema improved however continues to have pitting lower extremity edema. Denies chest pain. - Physical Exam General: Alert, Oriented x3, Cooperative HEENT: Atraumatic, PERRLA, EOMI, Normocephalic Neck: Supple, No JVD, Negative Carotid Bruits Lungs: Clear to auscultation, Diminished Cardiovascular: Normal S1, Normal S2, Murmur, Tachycardic Abdomen: Bowel Sounds Present, Soft, Non Tender, Non-Distended, Obese Extremities: No clubbing, No cyanosis, Capillary Refill Less than 3 Seconds, Edema - +2 bilateral lower extremity Skin: No rashes, No breakdown Musculoskeletal: No Tenderness to Palpation of Joints or Extremities Neurological: Cranial nerves II-XII grossly intact, Neuro grossly intact Psych/Mental Status: Normal Affect, Appropriate Vital Signs Temp Pulse Resp BP Pulse Ox 98.2 F 68 18 141/80 H 94 12/11/18 10:59 12/11/18 11:02 12/11/18 10:59 12/11/18 10:59 12/11/18 10:59 Oxygen Flow Rate (L/min) 4.5 Oxygen Delivery Method Nasal Cannula Weight: 266 lb 5.094 oz Body Mass Index (BMI) 39.4 Finger Stick Blood Glucose 269 Intake and Output for Last 24 Hours 12/09/18 12/10/18 12/11/18 23:59 23:59 23:59 Intake Total 360 / 360 Output Total 2049 / 2049 Balance -1690 / -1690 Laboratory Tests Past 24 Hrs 12/10/18 12/10/18 12/10/18 20:20 20:20 20:20 WBC 10.5 RBC 3.45 L Hgb 9.8 L Hct 30.9 L MCV 89.6 MCH 28.4 MCHC 31.7 L RDW Std Deviation 47.2 H RDW Coeff of Judi 14.5 Plt Count 254 MPV 9.8 Immature Gran % (Auto) 1.800 H Neut % (Auto) 76.8 H Lymph % (Auto) 12.0 L [place] % (Auto) 8.4 Eos % (Auto) 0.7 Baso % (Auto) 0.3 Absolute Neuts (auto) 8.1 H Absolute Lymphs (auto) 1.26 Nucleated RBC % 0.2 Sodium 143 Potassium 4.0 Chloride 110 H Carbon Dioxide 25.0 Anion Gap 8 BUN 52 H Creatinine 3.18 H Estim Creat Clear Calc 22.54 Est GFR (MDRD) Af Amer 25 L Est GFR (MDRD) Non-Af 21 L BUN/Creatinine Ratio 16.4 Glucose 124 H Hemoglobin A1c Calcium 8.1 L Magnesium Total Bilirubin Direct Bilirubin AST ALT Alkaline Phosphatase Troponin I < 0.015 B-Natriuretic Peptide 459.7 H Total Protein Albumin Globulin Triglycerides Cholesterol LDL Cholesterol VLDL Cholesterol HDL Cholesterol [facility] 12/11/18 12/11/18 12/11/18 01:12 01:12 04:34 WBC RBC Hgb Hct MCV MCH MCHC RDW Std Deviation RDW Coeff of Judi Plt Count MPV Immature Gran % (Auto) Neut % (Auto) Lymph % (Auto) [place] % (Auto) Eos % (Auto) Baso % (Auto) Absolute Neuts (auto) Absolute Lymphs (auto) Nucleated RBC % Sodium Potassium Chloride Carbon Dioxide Anion Gap BUN Creatinine Estim Creat Clear Calc Est GFR (MDRD) Af Amer Est GFR (MDRD) Non-Af BUN/Creatinine Ratio Glucose Hemoglobin A1c 9.1 H Calcium Magnesium 2.1 Total Bilirubin Direct Bilirubin AST ALT Alkaline Phosphatase Troponin I < 0.015 < 0.015 B-Natriuretic Peptide Total Protein Albumin Globulin Triglycerides Cholesterol LDL Cholesterol VLDL Cholesterol HDL Cholesterol [facility] 12/11/18 12/11/18 12/11/18 06:25 06:25 06:25 WBC 10.5 RBC 3.31 L Hgb 9.5 L Hct 29.6 L MCV 89.4 MCH 28.7 MCHC 32.1 RDW Std Deviation 46.5 H RDW Coeff of Judi 14.4 Plt Count 264 MPV 9.4 Immature Gran % (Auto) 2.000 H Neut % (Auto) 75.3 H Lymph % (Auto) 12.8 L [place] % (Auto) 8.6 Eos % (Auto) 1.0 Baso % (Auto) 0.3 Absolute Neuts (auto) 7.9 H Absolute Lymphs (auto) 1.34 Nucleated RBC % 0 Sodium 145 Potassium 3.9 Chloride 111 H Carbon Dioxide 24.0 Anion Gap 10 BUN 52 H Creatinine 3.07 H Estim Creat Clear Calc 23.35 Est GFR (MDRD) Af Amer 26 L Est GFR (MDRD) Non-Af 22 L BUN/Creatinine Ratio 16.9 Glucose 132 H Hemoglobin A1c Calcium 8.0 L Magnesium Total Bilirubin 0.40 Direct Bilirubin 0.15 AST 17 ALT 33 Alkaline Phosphatase 54 Troponin I < 0.015 B-Natriuretic Peptide Total Protein 6.7 Albumin 2.3 L Globulin 4.4 H Triglycerides 165 Cholesterol 169 LDL Cholesterol 104 VLDL Cholesterol 33 HDL Cholesterol 32 L TSH 1.95 POC Glucose 12/11/18 12/11/18 12/11/18 10:58 07:55 01:47 POC Glucose 180 H 126 H 99 Medical Necessity - Tobacco Use Smoking Status: Former smoker Tobacco Use: Non-smoker Assessment/Plan All Active Problems (Last Reviewed 11/05/18 @ 10:26 by Pili May) CHF exacerbation (Acute) Chest pain (Acute) EDGARDO (acute kidney injury) (Acute) Choledocholithiasis with acute cholecystitis (Acute) Abnormal LFTs (Acute) 1. Acute on chronic diastolic CHF with associated acute hypoxic respiratory insufficiency-BNP 459. Chest x-ray with pulmonary edema. Recent stress test June 2017 with LVEF 53%. Continue IV Lasix 40 mg every 8 hours. Strict I&O. Daily weight. Griffin wraps bilateral lower extremities. Repeat echocardiogram pending. Cardiology following. Continue supplemental oxygen to maintain O2 at or above 90%. 2. Chest pain-EKG without ST-T changes. Troponin negative. Cardiology consulted for further cardiac evaluation. Known CAD with known occluded SVG to first diagonal and occluded SVG to first OM. Patient started on Ranexa by cardiology. He will be considered for cardiac catheterization pending response to diuresis and kidney function. 3. Acute kidney injury on chronic kidney disease stage III-mildly improved from prior. Obtain renal ultrasound. Trend BMP. Will consult nephrology. 4. Nonrheumatic aortic valve stenosis-repeat echocardiogram pending as noted above. 5. CAD with history of PCI and CABG x3-follows with Dr. Green. Continue aspirin, metoprolol regimen. 6. Type 2 diabetes [id number] AC at bedtime with sliding scale insulin. Continue home long-acting regimen. Hemoglobin A1c 9.1%. 7. Hypertension-stable, continue home amlodipine, metoprolol, isosorbide regimen. 8. Hyperlipidemia-continue home fenofibrate regimen. 9. Chronic COPD-no acute exacerbation. As needed albuterol aerosol. 10. Chronic normocytic anemia-stable, trend CBC. 11. Obesity-diet and lifestyle modifications encouraged. 12. Anxiety/depression-continue home fluoxetine regimen. 13. DASHA-continue CPAP nightly. DVT prophylaxis- heparin sc This patient was seen by SIGIFREDO Tong under the supervision of Dr. Escobar.
--- NOTE | 2018-12-11 13:27 | US_ITS ---
STUDY: RENAL ULTRASOUND - COMPLETE REASON FOR EXAM: Male, 68 years old. Acute renal failure TECHNIQUE: Ultrasound evaluation of the kidneys was performed with real-time and static buchanan-scale imaging. COMPARISON: None. FINDINGS: RIGHT KIDNEY: Normal location of the right kidney, which is normal in size. The right kidney measures 13.9 x 5.4 x 5.9 cm. There is a normal cortex of the right kidney. The renal cortex measures 1.7 cm. There is a 1.4 cm cyst. There are no right renal calculi. There is no right hydronephrosis. DISTAL RIGHT URETER: There is non-visualization of the distal right ureter. LEFT KIDNEY: Normal location of the left kidney, which is normal in size. The left kidney measures 13.7 x 4.9 x 5.5 cm. There is a normal cortex of the left kidney. The renal cortex measures 2.2 cm. Cysts are noted measuring 6 mm and 4.7 cm There are no left renal calculi. There is no left hydronephrosis. DISTAL LEFT URETER: There is non-visualization of the distal left ureter. BLADDER: The distended urinary bladder has a volume of 303 ml. There is a normal wall thickness of the distended urinary bladder. There is no demonstrated mass within the urinary bladder. There are no demonstrated bladder calculi. US/Kidney and Bladder IMPRESSION: Bilateral renal cysts. Electronically Signed: Marek Sanchez DO at 21:57 EDT Tel [phone], Service support ,
--- NOTE | 2018-12-11 13:55 | CHAPLAIN ---
Type of Pastoral Visit _x__ Initial Visit ___ Follow-up Visit ___ On-call Visit ___ General Patient Visit ___ Spiritual Assessment ___ Family Conference ___ Bereavement ___ Rapid Response ___ Code Blue ___ Other (describe below) Pastoral Care Referral From _x__ Patient ___ Family ___ Nurse ___ Physician ___ Watch Assembler ___ Shift Leader ___ Other (describe below) Sacrament/Intervention _x__ Active listening ___ Anointing ___ Latter-Day ___ Bereavement ___ Communion _x__ Lilli exploration ___ _x__ Life review _x__ Prayer ___ Reconciliation ___ Sacrament of Sick _x__ Supportive presence ___ Wedding ___ Other (describe below) Pastoral Comments long conversation with patient telling stories of spiritual significance for his life; pt welcomes saw runner to return in the future
--- NOTE | 2018-12-11 16:12 | CHAPLAIN ---
brought jose luis to patient as requested
[2018-12-11 16:31] LABS: Urine Sodium 87 mmol/L (Not Establ.)
[2018-12-11 16:56] LABS: Bedside Glucose 232 mg/dL (70-110)
[2018-12-11 17:56] LABS: Bacteria 0 SEEN /hpf (None Seen); Mucous, Urine 0 SEEN /hpf (<or=2+); Squamous Epithelial Cells - UA 0 SEEN /hpf (0-5)
[2018-12-11 18:00] LABS: Color, Urine Yellow (Yellow); Glucose, Dipstick 100 mg/dl (Normal); Ketone-Dipstick Negative (Negative); Leukocyte Esterase-Dipstick Negative /ul (Negative); Nitrite-Dipstick Negative (Negative); Occult Blood-Urine Negative /ul (Negative); Protein-Dipstick 500 mg/dl (Negative); Specific Gravity, Urine 1.015 (1.002-1.030); Urine Bilirubin Dipstick Negative (Negative); Urine Clarity Clear (Clear); Urine Urobilinogen Normal (Normal)
[2018-12-11 18:08] LABS: Fine Granular Cast- Urine 0-5 SEEN /lpf (0-5)
[2018-12-11 18:10] LABS: Hyaline Cast 0-5 SEEN /lpf (0-5)
[2018-12-11 18:12] LABS: White Blood Cells 0-5 SEEN /hpf (0-5)
[2018-12-11 18:14] LABS: Erythrocyte Sedimentation Rate 81 mm/hr (0-20)
[2018-12-11 18:17] LABS: Red Blood Cells-Urine 0-5 SEEN /hpf (0-5)
[2018-12-11 18:19] LABS: Transitional Epithelial - Ur 0 SEEN /hpf (0-5)
[2018-12-11] MEDS: traZODone 50 MG Tablet PO (21:11)
[2018-12-11] MEDS: Ranolazine 500 MG Tablet 1000 MG PO (21:13)
[2018-12-11] MEDS: MELATONIN 3 MG TABLET PO (21:17)
[2018-12-11 22:40] LABS: Bedside Glucose 172 mg/dL (70-110)
[2018-12-12] VITALS (20 sets, daily range): BP systolic 110–136; BP diastolic 57–72; PULSE 56–89; RESP 12–30; TEMP 36.4–37.2; O2SAT 90–98
--- NOTE | 2018-12-12 05:55 | RAD_ITS ---
STUDY: X-RAY CHEST REASON FOR EXAM: Male, 68 years old. Shortness of breath. Chest pain. TECHNIQUE: PA and lateral views of the chest. COMPARISON: Comparison is made with prior study dated December 10, 2018. FINDINGS: EKG electrodes are seen. There is evidence of a patchy infiltration in both lungs worse in the right midlung. This has progressed as compared to prior study. Follow-up is recommended. There is no demonstrated pleural abnormality. Sternal cerclage wires and vascular clips are present from a prior sternotomy and coronary artery bypass graft procedure (CABG). Cardiomegaly. Normal mediastinum and ursula. Normal visualized pulmonary arteries. There is atherosclerotic calcification of the aortic arch with tortuosity. There are diffuse degenerative changes of the visualized thoracic spine. Normal visualized ribs, clavicles, and shoulders. There is no demonstrated abnormality of the visualized soft tissue structures of the upper abdomen. RAD/Chest PA and Lateral IMPRESSION: Progressive bilateral infiltrates. Electronically Signed: Keagan Long, at 11:07 EDT , Service support ,
[2018-12-12] MEDS: Furosemide 40 MG/4 ML Vial IV (06:09)
[2018-12-12 06:17] LABS: Hematocrit 28.3 % (40-54); Hemoglobin 8.9 g/dL (13.0-16.5); Mean Corp Hgb Conc 31.4 g/dL (32-36); Mean Corpuscular Hgb 28.5 pg (27.0-32.0); Mean Corpuscular Volume 90.7 fL (80-94); Mean Platelet Vol. 9.7 fl (6.2-12.0); Platelet Count 263 K/mm3 (150-450); RBC Distribution Width CV 14.7 % (11.6-14.6); RBC Distribution Width SD 48.8 fl (35.1-43.9); Red Blood Count 3.12 M/mm3 (4.6-6.2)
[2018-12-12 06:49] LABS: ALB/GLOB Ratio 0.5 RATIO (0.9-2.4); AST(SGOT) 16 U/L (15-37); Alanine Aminotransfer ALT/SGPT 26 U/L (16-61); Albumin, Serum 2.1 g/dL (3.2-5.0); Alkaline Phosphatase 46 U/L (45-117); Anion Gap 7 (5-15); BUN 62 mg/dL (7-18); BUN/Creat Ratio 17.2 RATIO (10-20); Calcium,Total 8.5 mg/dL (8.5-10.1); Chloride 112 mmol/L (98-107); Creatinine, Serum 3.61 mg/dL (0.70-1.30); EST Glomerular Filtration Rate 18 mL/min (>60); Est Glom Filt Rate - Afr Amer 22 mL/min (>60); Estimated Creatinine Clearance 19.86 ml/min; Globulin 4.3 g/dL (2.2-4.2); Glucose 65 mg/dL (74-106); Magnesium 2.4 mg/dL (1.6-2.6); Potassium 3.9 mmol/L (3.5-5.1); Protein, Total 6.4 g/dL (6.4-8.2); Sodium Level 147 mmol/L (136-145)
[2018-12-12] MEDS: Ipratropium/Albuterol Sulfate 3 ML AMPUL.NEB INHALATION ×3 (07:13→18:59)
[2018-12-12 08:10] LABS: Bedside Glucose 72 mg/dL (70-110)
[2018-12-12] MEDS: Insulin Human 75/25 Kwickpen 36 UNIT SC ×3 (08:40→16:38)
[2018-12-12] MEDS: amLODIPine 10 MG Tablet PO (09:08)
[2018-12-12] MEDS: Heparin Injection (Vial) 5,000 UNIT/ML VIAL 5000 UNIT SC ×2 (09:08→22:35)
[2018-12-12] MEDS: Aspirin E.C. 81 MG Tablet PO (09:08)
[2018-12-12] MEDS: Ranolazine 500 MG Tablet 1000 MG PO ×2 (09:08→22:37)
[2018-12-12] MEDS: Metoprolol Tartrate 50 MG Tablet PO ×2 (09:09→22:36)
[2018-12-12] MEDS: FLUoxetine 10 MG Capsule 40 MG PO (09:15)
--- NOTE | 2018-12-12 10:55 | CASEMGMT ---
Addendum entered by Jil Encarnacion 12/12/18 10:58: Lara at [facility] registration also made aware at this time. Jaylan STRICKLAND CM Original Note: [facility] states [facility] and [facility] at [facility]. Jaylan STRICKLAND CM
[2018-12-12 11:21] LABS: Bedside Glucose 147 mg/dL (70-110)
--- NOTE | 2018-12-12 12:18 | CASEMGMT ---
Green sheet on chart for home oxygen at this time. Jaylan STRICKLAND CM
[2018-12-12] MEDS: Allopurinol 100 MG Tablet PO (13:04)
--- NOTE | 2018-12-12 13:16 | PN.CARD_ITS ---
Subjectve: Patient states that he still feels about the same. Patient was diuresed with IV Lasix and his creatinine has gone up. Objective: Vital Signs Temp Pulse Resp BP Pulse Ox 97.6 F L 66 18 133/65 H 96 12/12/18 10:57 12/12/18 10:57 12/12/18 10:57 12/12/18 10:57 12/12/18 10:57 Oxygen Flow Rate (L/min) 4.5 Oxygen Delivery Method Bi-pap Weight: 264 lb 15.93 oz Body Mass Index (BMI) 39.4 Finger Stick Blood Glucose 269 Intake and Output for Last 24 Hours 12/10/18 12/11/18 12/12/18 23:59 23:59 23:59 Intake Total 640 / 640 600 / 600 Output Total 2400 / 2400 500 / 500 Balance -1760 / -1760 100 / 100 General: Awake, Alert, Oriented x 3 HEENT: Atraumatic Oral: Moist Mucosa Neck: Supple Lungs: Clear to auscultation Cardiovascular: Normal S1, Normal S2 Abdomen: Soft Extremities: Bilateral Edema +1 Skin: No Rashes Psych/Mental Status: Appropriate 12/11/18 15:20: Urine Color Yellow, Urine Clarity Clear, Urine pH 6.0, Ur Specific [place] 1.015, Urine Protein 500 H, Urine Glucose (UA) 100 H, Urine Ketones Negative, Urine Occult Blood Negative, Urine Nitrite Negative, Urine Bilirubin Negative, Urine Urobilinogen Normal, Ur Leukocyte Esterase Negative, Urine RBC 0-5 SEEN, Urine WBC 0-5 SEEN 12/12/18 05:35: WBC 9.0, RBC 3.12 L, Hgb 8.9 L, Hct 28.3 L, MCV 90.7, MCH 28.5, MCHC 31.4 L, Plt Count 263, MPV 9.7 12/12/18 05:35: Sodium 147 H, Potassium 3.9, Chloride 112 H, Carbon Dioxide 28.0, Anion Gap 7, BUN 62 H, Creatinine 3.61 H, Est GFR (MDRD) Af Amer 22 L, Est GFR (MDRD) Non-Af 18 L, BUN/Creatinine Ratio 17.2, Glucose 65 L, Calcium 8.5, Magnesium 2.4, Total Bilirubin 0.60 12/12/18 05:35: Phosphorus 6.0 H Rhythm: EKG: ECHO: Stress Test: Cardiac Cath: PCI: CT Surgery: Holter monitor: EPS: PPM: CXR: Chest CT Scan: Medical Necessity - Tobacco Use Smoking Status: Former smoker Tobacco Use: Non-smoker Assessment/Plan 1. Chest pain: Cardiac enzymes and EKG were unremarkable. Patient has 2 bypass grafts that are occluded. His chest pain could be the result of a combination of underlying CAD and anemia. His hemoglobin has been dropping slowly. I recommend considering transfusing the patient with a goal hemoglobin closer to 10. Will also add Ranexa. 2. CHF: We will try diuresing patient. However his creatinine has gone up. Right now he does not appear volume overloaded. It would be reasonable to DC the Lasix and fluid restriction. If he is getting blood transfusion then that will help with this volume as well. 3. Hypertension: We can change the amlodipine to 10 mg daily. Continue metoprolol as well.
--- NOTE | 2018-12-12 13:26 | PCM.CONS.PUL ---
Reason for Consult Date of Consultation: 12/12/18 Reason for Consultation: Acute respiratory failure History of Present Illness: The patient is a 68-year-old male, with a history as outlined below, who presented to the emergency department on December 10 with complaints of shortness of breath. The patient does have multiple comorbidities including coronary artery disease status post CABG, chronic kidney disease, obstructive lung disease, valvular heart disease and obstructive sleep apnea. The patient does have a remote smoking history, having quit completely 35+ years ago. He was, nevertheless, a heavy smoker during the time that he was reliant on tobacco products. He also has known DASHA and is currently prescribed nocturnal CPAP therapy with a pressure support of 11 cm of water. He does report that his shortness of breath has been rather insidious in onset. He also reports a 10 to 20 pound weight gain over the last year. He currently denies the presence of a cough, chest tightness or wheezing. He is currently prescribed Symbicort in his home environment. On presentation to the emergency department, the patient was noted to be afebrile and tachycardic. He was initially documented to be saturating 91% on room air. Laboratory evaluation revealed no evidence of a leukocytosis. Chemistry profile was notable for a creatinine of 3.18. BNP was elevated to 460. Troponin was negative. Initial plain film chest x-ray revealed multifocal infiltrates bilaterally. The patient was subsequently admitted to the progressive care unit for further management. The patient's hospital course has included aggressive attempts at diuresis. The patient is currently documented to be overall net -1.6 L for the admission. Surface echocardiogram completed on December 11 revealed normal LV size with concentric LVH and an ejection fraction of 65%. There was moderate to severe aortic stenosis. A repeat plain film chest x-ray was completed early this morning and again demonstrated what appeared to be multilobar pneumonia with clear costophrenic angles. The patient's diuretics have been placed on hold due to worsening renal insufficiency. The patient was started on antibiotics today as well. Past Medical History Past Medical History (Chronic Problems): Chronic Problems (Last Reviewed 11/05/18 @ 10:26 by Pili May) CKD (chronic kidney disease), stage III (Chronic) Pure hypercholesterolemia (Chronic) Type 2 diabetes mellitus (Chronic) Presence of stent in coronary artery (Chronic ~08/25/14) 07/18/10, PTCA/stent to mid to distal LCx artery; 08/17/10 PTCA/stent to proximal to mid RCA; PTCA of distal RCA with DEX September 2010; PTCA with EULALIO to mid distal AV groove left CFX 08/13 Essential hypertension (Chronic) Nonrheumatic aortic (valve) stenosis (Chronic) Nonspecific abnormal unspecified cardiovascular function study (Chronic) Diastolic dysfunction (Chronic) Other retirement (current) drug therapy (Chronic) Nicotine abuse (Chronic) Atherosclerotic heart disease of [place] coronary artery without angina pectoris (Chronic) S/P multivessel PTCA/stent and subsequent CABG with SVG to LCx, RCA and diagonal branch with subsequent SVG graft closure to the LCx and diagonal branch; S/P CABG x 3 (Chronic ~07/21/12) CABG-SVG to diagonal, SVG to obtuse marginal & SVG to PDA 07/12; GERD (gastroesophageal reflux disease) (Chronic) Anxiety (Chronic) Medical History: Medical History (Last Reviewed 11/05/18 @ 10:26 by Pili May) Pure hypercholesterolemia (Chronic) E78.00 Type 2 diabetes mellitus (Chronic) E11.9 Presence of stent in coronary artery (Chronic) Onset Date: ~08/25/14 Z95.5 07/18/10, PTCA/stent to mid to distal LCx artery; 08/17/10 PTCA/stent to proximal to mid RCA; PTCA of distal RCA with DEX September 2010; PTCA with EULALIO to mid distal AV groove left CFX 08/13 Essential hypertension (Chronic) I10 Nonrheumatic aortic (valve) stenosis (Chronic) I35.0 Diastolic dysfunction (Chronic) I51.9 Atherosclerotic heart disease of [place] coronary artery without angina pectoris (Chronic) I25.10 S/P multivessel PTCA/stent and subsequent CABG with SVG to LCx, RCA and diagonal branch with subsequent SVG graft closure to the LCx and diagonal branch; Fatigue R53.83 Precordial chest pain R07.2 Shortness of breath R06.02 Sleep apnea G47.30 COPD (chronic obstructive pulmonary disease) J44.9 Diverticulitis K57.92 Aortic valve disease (Inactive) I35.9 Coronary atherosclerosis of [place] coronary artery (Inactive) I25.10 Diabetes mellitus (Inactive) E11.9 HTN (hypertension) (Inactive) I10 Allergies carvedilol [From Coreg] Allergy (Severe, Verified 12/10/18 19:58) vomiting sertraline HCl [From Zoloft] Allergy (Verified 12/10/18 19:58) Unknown isosorbide [From Imdur] Adverse Reaction (Severe, Verified 12/10/18 19:58) Unknown valsartan [From Diovan] Adverse Reaction (Severe, Verified 12/10/18 19:58) Possible angioedema, throat swelling bupropion HCl [From Wellbutrin] Adverse Reaction (Verified 12/10/18 19:58) gets mean citalopram Adverse Reaction (Verified 12/10/18 19:58) Other gabapentin Adverse Reaction (Verified 12/10/18 19:58) Other Home Medications: Ambulatory Orders Medication Instructions Recorded Aspirin [Ecotrin] 81 mg PO DAILY 10/27/13 Nitroglycerin (INPATIENT USE) 0.4 mg SUBLINGUAL Q5M PRN 10/27/13 [Nitrostat] Ammonium Lactate [Amlactin] 1 applic TP PRN PRN 06/20/17 allopurinol 100 mg tablet 100 mg PO QDAY 06/24/17 insulin glargine (U-100) 100 36 unit SC TID ml 06/25/17 unit/mL subcutaneous solution coenzyme Q10 400 mg capsule 400 mg PO BID #90 cap 09/13/17 berberine-herbal comb no.18 capsule 1 cap PO BID cap 02/24/18 fenofibrate nanocrystallized 160 160 mg PO DAILY #30 tab 02/24/18 mg tablet fluoxetine 10 mg tablet 40 mg PO DAILY 05/28/18 metoprolol tartrate 25 mg tablet 50 mg PO BID #120 tab 07/10/18 furosemide 20 mg tablet 20 mg PO BID #60 tab 08/11/18 furosemide 40 mg tablet 40 mg PO BID #60 tab 08/11/18 Amlodipine [Norvasc] 10 mg PO BID 12/11/18 Insulin Glargine,Hum.rec.anlog 40 unit SQ BID 12/11/18 [Lantus] traZODone [Desyrel] 50 mg PO QHS PRN 12/11/18 Surgical History: Surgical History (Last Reviewed 11/05/18 @ 10:26 by Pili May) S/P CABG x 3 (Chronic) Onset Date: ~07/21/12 Z95.1 CABG-SVG to diagonal, SVG to obtuse marginal & SVG to PDA 07/12; Presence of coronary angioplasty implant and graft Z95.5 07/18/10, PTCA/stent to mid to distal LCx artery; 08/17/10 PTCA/stent to proximal to mid RCA; PTCA of distal RCA with DEX September 2010; PTCA with EULALIO to mid distal AV groove left CFX 08/13 History of bilateral knee replacement Z96.653 History of carpal tunnel repair Z98.890 History of cholecystectomy Z90.49 History of partial colectomy Z90.49 History of repair of rotator cuff Z98.890 S/P PTCA (percutaneous transluminal coronary angioplasty) (Inactive) Z98.61 07/18/10, PTCA/stent to mid to distal LCx artery; 08/17/10 PTCA/stent to proximal to mid RCA; PTCA of distal RCA with DEX September 2010; PTCA with EULALIO to mid distal AV groove left CFX 08/13 Surgical History: angioplasty, arthroscopy, knee, coronary bypass surgery, - - Patient status post CABG x3, serial PCI, bilateral total knee replacement, rotator cuff repair, partial colectomy, cholecystectomy, carpal tunnel surgery. Psychiatric History: No pertinent psych hx Lives: Spouse/ Significant Other Smoking Status: Former smoker Tobacco Use: Non-smoker Alcohol: None Drugs: None - *Family History Maternal Family History: Family History (Last Reviewed 11/05/18 @ 10:26 by Pili May) Father CAD (coronary artery disease) Afib Aortic valve replaced Mother Cancer Son Lupus History Items: Cancer Paternal Family History: Family History (Last Reviewed 11/05/18 @ 10:26 by Pili May) Father CAD (coronary artery disease) Afib Aortic valve replaced Mother Cancer Son Lupus History Items: High Cholesterol, Heart Disease - Atrial fibrillation; valvular heart disease status post aVR; , Hypertension Review of Systems Constitutional: Reports: Malaise, Fatigue Eyes: Denies: Blurred vision, Double vision Cardiovascular: Denies: Chest Pain, Palpitations Respiratory: Reports: Cough, Shortness of Breath. Denies: Sputum production Gastrointestinal: Denies: Abdominal Pain, Nausea, Vomiting Genitourinary: Denies: Dysuria Musculoskeletal: Denies: Joint Pain, Joint Tenderness Skin: Denies: Rash, Wounds Neurological: Denies: Numbness, Tingling, Focal weakness Psychiatric: Reports: Anxiety Hematologic/ Lymphatic: Reports: Anemia Patient Problems: Active and Suspected Problems (Last Reviewed 11/05/18 @ 10:26 by Pili May) Nephrotic range proteinuria (Acute) Chest pain (Acute) EDGARDO (acute kidney injury) (Acute) Objective: The patient's most recent lab work, culture data and imaging studies have all been personally reviewed. Respiratory viral panel was negative. Strep and urine Legionella antigens were both negative. Pulmonary function studies completed in January 2015 revealed no evidence of obstructive lung disease. - Physical Exam General: Alert, Oriented x3, Cooperative, No apparent distress, - - Morbidly obese HEENT: Atraumatic, PERRLA, Normocephalic Oral: No Gingival or Mucosal Lesions/ Ulcerations Neck: Supple, No Nodes, Trachea Midline Lungs: No rhonchi, No wheeze, Diminished, Rales Cardiovascular: Regular rate, Regular Rhythm, Normal S1, Normal S2, Murmur Abdomen: Bowel Sounds Present, Soft, Non Tender, Distended, Obese Extremities: No clubbing, No cyanosis, Edema Skin: No breakdown Musculoskeletal: No Tenderness to Palpation of Joints or Extremities Lymphatic: No Cervical, Supraclavicular, or Inguinal Adenopathy Neurological: Cranial nerves II-XII grossly intact, Neuro grossly intact Psych/Mental Status: Alert and oriented to time, place, person, mood and affect Vital Signs Temp Pulse Resp BP Pulse Ox 97.6 F L 66 18 133/65 H 96 12/12/18 10:57 12/12/18 10:57 12/12/18 10:57 12/12/18 10:57 12/12/18 10:57 Oxygen Flow Rate (L/min) 4.5 Oxygen Delivery Method Bi-pap Weight: 264 lb 15.93 oz Body Mass Index (BMI) 39.4 Finger Stick Blood Glucose 269 Intake and Output for Last 24 Hours 12/10/18 12/11/18 12/12/18 23:59 23:59 23:59 Intake Total 640 / 640 600 / 600 Output Total 2400 / 2400 500 / 500 Balance -1760 / -1760 100 / 100 Microbiology Past 72 Hours 12/11/18 20:20 Respiratory Panel (PCR) - Final Mucosa - Nose 12/11/18 15:20 Streptococcus pneumoniae Antigen (M - Final Urine, Clean Catch 12/11/18 15:20 Legionella Antigen - Final Urine, Clean Catch Laboratory Tests Past 24 Hrs 12/11/18 12/11/18 12/11/18 06:25 06:25 15:20 WBC RBC Hgb Hct MCV MCH MCHC RDW Std Deviation RDW Coeff of Judi Plt Count MPV ESR 81 H Sodium Potassium Chloride Carbon Dioxide Anion Gap BUN Creatinine Estim Creat Clear Calc Est GFR (MDRD) Af Amer Est GFR (MDRD) Non-Af BUN/Creatinine Ratio Glucose Calcium Phosphorus Magnesium Total Bilirubin AST ALT Alkaline Phosphatase C-React Prot Ext Range 71.10 H Total Protein Albumin Globulin Albumin/Globulin Ratio Urine Color Urine Clarity Urine pH Ur Specific [place] Urine Protein Urine Glucose (UA) Urine Ketones Urine Occult Blood Urine Nitrite Urine Bilirubin Urine Urobilinogen Ur Leukocyte Esterase Urine RBC Urine WBC Ur Squamous Epith Cells Ur Transition Epith Cell Urine Bacteria Hyaline Casts Fine Granular Casts Urine Mucus Ur Random Sodium Urine Creatinine 75.30 12/11/18 12/11/18 12/12/18 15:20 15:20 05:35 WBC 9.0 RBC 3.12 L Hgb 8.9 L Hct 28.3 L MCV 90.7 MCH 28.5 MCHC 31.4 L RDW Std Deviation 48.8 H RDW Coeff of Judi 14.7 H Plt Count 263 MPV 9.7 ESR Sodium Potassium Chloride Carbon Dioxide Anion Gap BUN Creatinine Estim Creat Clear Calc Est GFR (MDRD) Af Amer Est GFR (MDRD) Non-Af BUN/Creatinine Ratio Glucose Calcium Phosphorus Magnesium Total Bilirubin AST ALT Alkaline Phosphatase C-React Prot Ext Range Total Protein Albumin Globulin Albumin/Globulin Ratio Urine Color Yellow Urine Clarity Clear Urine pH 6.0 Ur Specific [place] 1.015 Urine Protein 500 H Urine Glucose (UA) 100 H Urine Ketones Negative Urine Occult Blood Negative Urine Nitrite Negative Urine Bilirubin Negative Urine Urobilinogen Normal Ur Leukocyte Esterase Negative Urine RBC 0-5 SEEN Urine WBC 0-5 SEEN Ur Squamous Epith Cells 0 SEEN Ur Transition Epith Cell 0 SEEN Urine Bacteria 0 SEEN Hyaline Casts 0-5 SEEN Fine Granular Casts 0-5 SEEN Urine Mucus 0 SEEN Ur Random Sodium 87 Urine Creatinine 12/12/18 12/12/18 05:35 05:35 WBC RBC Hgb Hct MCV MCH MCHC RDW Std Deviation RDW Coeff of Judi Plt Count MPV ESR Sodium 147 H Potassium 3.9 Chloride 112 H Carbon Dioxide 28.0 Anion Gap 7 BUN 62 H Creatinine 3.61 H Estim Creat Clear Calc 19.86 Est GFR (MDRD) Af Amer 22 L Est GFR (MDRD) Non-Af 18 L BUN/Creatinine Ratio 17.2 Glucose 65 L Calcium 8.5 Phosphorus 6.0 H Magnesium 2.4 Total Bilirubin 0.60 AST 16 ALT 26 Alkaline Phosphatase 46 C-React Prot Ext Range Total Protein 6.4 Albumin 2.1 L Globulin 4.3 H Albumin/Globulin Ratio 0.5 L Urine Color Urine Clarity Urine pH Ur Specific [place] Urine Protein Urine Glucose (UA) Urine Ketones Urine Occult Blood Urine Nitrite Urine Bilirubin Urine Urobilinogen Ur Leukocyte Esterase Urine RBC Urine WBC Ur Squamous Epith Cells Ur Transition Epith Cell Urine Bacteria Hyaline Casts Fine Granular Casts Urine Mucus Ur Random Sodium Urine Creatinine POC Glucose 12/12/18 12/12/18 12/11/18 11:00 08:05 21:15 POC Glucose 147 H 72 172 H 12/11/18 16:28 POC Glucose 232 H Clinical Impression(s) from Imaging Studies Chest X-Ray 12/10/18 21:29 IMPRESSION: Bilateral perihilar pneumonia versus pulmonary edema. Electronically Signed: Luis E Fishman DO at 22:01 EDT Tel [phone], Service support , Renal Ultrasound 12/11/18 13:27 IMPRESSION: Bilateral renal cysts. Electronically Signed: Marek Sanchez DO at 21:57 EDT Tel [phone], Service support , Chest X-Ray 12/12/18 05:55 IMPRESSION: Progressive bilateral infiltrates. Electronically Signed: Keagan Long, at 11:07 EDT , Service support , Assessment/Plan All Active Problems (Last Reviewed 11/05/18 @ 10:26 by Pili May) Nephrotic range proteinuria (Acute) CHF exacerbation (Acute) Chest pain (Acute) EDGARDO (acute kidney injury) (Acute) Choledocholithiasis with acute cholecystitis (Acute) Abnormal LFTs (Acute) RECOMMENDATIONS: 1. Start Zosyn. 2. Obtain sputum and send for culture. 3. Await nephrology evaluation. 4. Continue bronchodilators. 5. Discontinue morphine sulfate, given underlying renal insufficiency. 6. Continue nocturnal Pap therapy. IMPRESSIONS: 1. Acute hypoxemic respiratory insufficiency While initially felt to be secondary to decompensated heart failure, the radiographic findings noted on chest x-ray is more concerning for multilobar pneumonia. The patient has been diuresed with worsening renal function and no significant improvement in his respiratory status. Agree with discontinuation of diuretics for now. Wean supplemental oxygen to maintain saturations at or above 90%. Agree with initiating empiric antimicrobial therapy. If the patient does not respond to antibiotics over the next 48 hours, I would have a low threshold for obtaining a noncontrasted chest CT. Encourage incentive spirometer use and mobilize patient as tolerated. 2. Coronary artery disease/heart failure with preserved ejection fraction/valvular heart disease The patient does not appear to be overtly volume overloaded at this time. Cardiology is currently following. Agree with holding diuretic therapy. 3. Acute on chronic kidney disease Suspect prerenal etiology due to use of diuretics. Nephrology has been consulted to evaluate the patient. Continue to hold nephrotoxic medications. There is no current indication for renal replacement therapy. 4. Chronic anemia The patient has baseline chronic anemia. In his setting of coronary artery disease, there are plans to transfuse the patient today. 5. Obstructive sleep apnea Continue nocturnal Pap therapy. Given the patient's weight gain over the last year, he may require a re-titration study and subsequent increase in his pressure support. This can be completed on an outpatient basis. 6. Diabetes mellitus/hypertension/hyperlipidemia/anxiety/depression/CODE STATUS Complicates care, management, recovery and prognosis. I personally discussed CODE STATUS with the patient at the bedside who indicated that he would not want to have chest compressions or be intubated and placed on a ventilator. CODE STATUS to be updated to DNR CCA. This note was generated with [employer] dictation software. It may contain incorrect words, spelling, and punctuation that were not noted in checking the note before signing. Code Visit Inpatient E&M: 71566 Init Hosp L3
[2018-12-12] MEDS: Ceftriaxone 1 GM/50 ML BAG IV (13:30)
--- NOTE | 2018-12-12 14:13 | PN_ITS ---
Patient Problems: Active and Suspected Problems (Last Reviewed 11/05/18 @ 10:26 by Pili May) Chest pain (Acute) EDGARDO (acute kidney injury) (Acute) Subjective: Patient seen and examined. Reports shortness of breath is the same, not improved. Denies cough, fever, chills. Continues to require supplemental oxygen. Lower extremity edema improved. - Physical Exam General: Alert, Oriented x3, Cooperative HEENT: Atraumatic, PERRLA, EOMI, Normocephalic Neck: Supple, No JVD, Negative Carotid Bruits Lungs: Diminished, - - Faint scattered crackles bilateral bases Cardiovascular: Regular rate, Regular Rhythm, Normal S1, Normal S2, No murmurs Abdomen: Bowel Sounds Present, Soft, Non Tender, Non-Distended Extremities: No clubbing, No cyanosis, Capillary Refill Less than 3 Seconds, Edema - Bilateral lower extremities, Griffin wraps in place Skin: No rashes, No breakdown Musculoskeletal: No Tenderness to Palpation of Joints or Extremities Neurological: Cranial nerves II-XII grossly intact, Neuro grossly intact Psych/Mental Status: Normal Affect, Appropriate Vital Signs Temp Pulse Resp BP Pulse Ox 97.6 F L 67 16 133/65 H 96 12/12/18 10:57 12/12/18 13:21 12/12/18 13:21 12/12/18 10:57 12/12/18 10:57 Oxygen Flow Rate (L/min) 4.5 Oxygen Delivery Method Bi-pap Weight: 264 lb 15.93 oz Body Mass Index (BMI) 39.4 Finger Stick Blood Glucose 269 Intake and Output for Last 24 Hours 12/10/18 12/11/18 12/12/18 23:59 23:59 23:59 Intake Total 640 / 640 600 / 600 Output Total 2400 / 2400 500 / 500 Balance -1760 / -1760 100 / 100 Microbiology Past 72 Hours 12/11/18 20:20 Respiratory Panel (PCR) - Final Mucosa - Nose 12/11/18 15:20 Streptococcus pneumoniae Antigen (M - Final Urine, Clean Catch 12/11/18 15:20 Legionella Antigen - Final Urine, Clean Catch Laboratory Tests Past 24 Hrs 12/11/18 12/11/18 12/11/18 06:25 06:25 15:20 WBC RBC Hgb Hct MCV MCH MCHC RDW Std Deviation RDW Coeff of Judi Plt Count MPV ESR 81 H Sodium Potassium Chloride Carbon Dioxide Anion Gap BUN Creatinine Estim Creat Clear Calc Est GFR (MDRD) Af Amer Est GFR (MDRD) Non-Af BUN/Creatinine Ratio Glucose Calcium Phosphorus Magnesium Total Bilirubin AST ALT Alkaline Phosphatase C-React Prot Ext Range 71.10 H Total Protein Albumin Globulin Albumin/Globulin Ratio Urine Color Urine Clarity Urine pH Ur Specific [place] Urine Protein Urine Glucose (UA) Urine Ketones Urine Occult Blood Urine Nitrite Urine Bilirubin Urine Urobilinogen Ur Leukocyte Esterase Urine RBC Urine WBC Ur Squamous Epith Cells Ur Transition Epith Cell Urine Bacteria Hyaline Casts Fine Granular Casts Urine Mucus Ur Random Sodium Urine Creatinine 75.30 Blood Type Antibody Screen Crossmatch 12/11/18 12/11/18 12/12/18 15:20 15:20 05:35 WBC 9.0 RBC 3.12 L Hgb 8.9 L Hct 28.3 L MCV 90.7 MCH 28.5 MCHC 31.4 L RDW Std Deviation 48.8 H RDW Coeff of Judi 14.7 H Plt Count 263 MPV 9.7 ESR Sodium Potassium Chloride Carbon Dioxide Anion Gap BUN Creatinine Estim Creat Clear Calc Est GFR (MDRD) Af Amer Est GFR (MDRD) Non-Af BUN/Creatinine Ratio Glucose Calcium Phosphorus Magnesium Total Bilirubin AST ALT Alkaline Phosphatase C-React Prot Ext Range Total Protein Albumin Globulin Albumin/Globulin Ratio Urine Color Yellow Urine Clarity Clear Urine pH 6.0 Ur Specific [place] 1.015 Urine Protein 500 H Urine Glucose (UA) 100 H Urine Ketones Negative Urine Occult Blood Negative Urine Nitrite Negative Urine Bilirubin Negative Urine Urobilinogen Normal Ur Leukocyte Esterase Negative Urine RBC 0-5 SEEN Urine WBC 0-5 SEEN Ur Squamous Epith Cells 0 SEEN Ur Transition Epith Cell 0 SEEN Urine Bacteria 0 SEEN Hyaline Casts 0-5 SEEN Fine Granular Casts 0-5 SEEN Urine Mucus 0 SEEN Ur Random Sodium 87 Urine Creatinine Blood Type Antibody Screen Crossmatch 12/12/18 12/12/18 12/12/18 05:35 05:35 13:30 WBC RBC Hgb Hct MCV MCH MCHC RDW Std Deviation RDW Coeff of Judi Plt Count MPV ESR Sodium 147 H Potassium 3.9 Chloride 112 H Carbon Dioxide 28.0 Anion Gap 7 BUN 62 H Creatinine 3.61 H Estim Creat Clear Calc 19.86 Est GFR (MDRD) Af Amer 22 L Est GFR (MDRD) Non-Af 18 L BUN/Creatinine Ratio 17.2 Glucose 65 L Calcium 8.5 Phosphorus 6.0 H Magnesium 2.4 Total Bilirubin 0.60 AST 16 ALT 26 Alkaline Phosphatase 46 C-React Prot Ext Range Total Protein 6.4 Albumin 2.1 L Globulin 4.3 H Albumin/Globulin Ratio 0.5 L Urine Color Urine Clarity Urine pH Ur Specific [place] Urine Protein Urine Glucose (UA) Urine Ketones Urine Occult Blood Urine Nitrite Urine Bilirubin Urine Urobilinogen Ur Leukocyte Esterase Urine RBC Urine WBC Ur Squamous Epith Cells Ur Transition Epith Cell Urine Bacteria Hyaline Casts Fine Granular Casts Urine Mucus Ur Random Sodium Urine Creatinine Blood Type Pending Antibody Screen Pending Crossmatch See Detail POC Glucose 12/12/18 12/12/18 12/11/18 11:00 08:05 21:15 POC Glucose 147 H 72 172 H 12/11/18 16:28 POC Glucose 232 H Medical Necessity - Tobacco Use Smoking Status: Former smoker Tobacco Use: Non-smoker Assessment/Plan All Active Problems (Last Reviewed 11/05/18 @ 10:26 by Pili May) CHF exacerbation (Acute) Chest pain (Acute) EDGARDO (acute kidney injury) (Acute) Choledocholithiasis with acute cholecystitis (Acute) Abnormal LFTs (Acute) 1. Acute hypoxic respiratory failure secondary to multilobar pneumonia-chest x- ray this morning shows progressive bilateral infiltrates. Pulmonary medicine consulted. Continue supplement oxygen to maintain O2 at or above 90%. IV Zosyn. Urine for strep and Legionella negative. Respiratory panel negative. Send sputum for culture. If no improvement, plan on CT without contrast. 2. Chronic diastolic CHF, acute CHF ruled out-BNP 459, patient with CKD stage IV. Recent stress test June 2017 with LVEF 53%. DC IV Lasix. Griffin wraps bilateral lower extremities. Repeat echocardiogram demonstrates an EF of 65%, moderate to severe . Hold home diuretic regimen given worsening renal function. 3. Chest pain-EKG without ST-T changes. Troponin negative. Cardiology consulted for further cardiac evaluation. Known CAD with known occluded SVG to first diagonal and occluded SVG to first OM. Patient started on Ranexa by cardiology. Possible consideration for cardiac catheterization. 4. Acute kidney injury on chronic kidney disease stage IV-worsening creatinine. Renal ultrasound shows bilateral renal cyst. Trend BMP. Nephrology consulted, pending. 5. Nonrheumatic aortic valve stenosis-repeat echocardiogram as noted above. 6. CAD with history of PCI and CABG x3-follows with Dr. Green. Continue aspirin, metoprolol regimen. 7. Type 2 diabetes [id number] AC at bedtime with sliding scale insulin. Continue home long-acting regimen. Hemoglobin A1c 9.1%. 8. Hypertension-stable, continue home amlodipine, metoprolol, isosorbide regimen. 9. Hyperlipidemia-continue home fenofibrate regimen. 10. Chronic COPD-no acute exacerbation. As needed albuterol aerosol. 11. Acute on Chronic normocytic anemia-slowly trending down. Iron studies and stool for occult blood ordered. 1 unit PRBC. Trend CBC. 12. Obesity-diet and lifestyle modifications encouraged. 13. Anxiety/depression-continue home fluoxetine regimen. 14. DASHA-continue CPAP nightly. DVT prophylaxis- heparin sc This patient was seen by SIGIFREDO Tong under the supervision of Dr. Escobar.
[2018-12-12 15:01] LABS: Ferritin 232 ng/mL (26-388); Iron 25 ug/dL (65-175); Iron Binding Capacity,Total 270 ug/dL (250-450); PERCENT IRON SATURATION 9.3 % (15.0-55.0)
--- NOTE | 2018-12-12 16:01 | CON.PCM_ITS ---
Problem List (1) Nephrotic range proteinuria Status: Acute (2) CHF exacerbation Status: Acute Qualifiers: Heart failure type: unspecified Qualified Code(s): I50.9 - Heart failure, unspecified (3) EDGARDO (acute kidney injury) Status: Acute (4) CKD (chronic kidney disease), stage III Status: Chronic Consultation - Renal PCP/ Referring MD: Requesting physician: [] Primary care physician: Davon Lemus MD - History of Present Illness History of Present Illness: The patient is a 68 year old M PMH of CKD stage [address] Rodrigez in renal office, COPD, CAD s/p CABG, CHF, HPLD, DM. Pt presented to [facility] ED for progressive SOB, LE edema, orthopnea with some sternal pain. Pt was admitted for RF due to CHF/Pneumonia Pt was treated with Abx Zosyn and with lasix IV 40 mg TID. Pt presented with Cr higher than his baseline which is around 2.6-2.7 mg/dl. Cr at presentation was around 3.1 . Cr increased with diuresis to 3.8 mg/dL. lasix was stopped today and renal team was consulted Repeated chest xray today showed worsening B/L infiltrates. Pt denied any urinary obstructive symptoms.No recent IV contrast exposure. No NSAIDs. ROS: 12 systems review is negative except some SOB which is better now Pt is currently on BiPAP with FIO2 45%[] - Allergies Allergies: Allergies carvedilol [From Coreg] Allergy (Severe, Verified 12/10/18 19:58) vomiting sertraline HCl [From Zoloft] Allergy (Verified 12/10/18 19:58) Unknown isosorbide [From Imdur] Adverse Reaction (Severe, Verified 12/10/18 19:58) Unknown valsartan [From Diovan] Adverse Reaction (Severe, Verified 12/10/18 19:58) Possible angioedema, throat swelling bupropion HCl [From Wellbutrin] Adverse Reaction (Verified 12/10/18 19:58) gets mean citalopram Adverse Reaction (Verified 12/10/18 19:58) Other gabapentin Adverse Reaction (Verified 12/10/18 19:58) Other - Current Medications Current Medications: Current Medications Acetaminophen (Tylenol) 650 mg PO Q6H PRN PRN PRN Reason: Non-cardiac pain (mod-severe) Hydrocodone Bitart/Acetaminophen ([place] 5mg-325mg) 1 - 2 tablet PO Q6H PRN PRN PRN Reason: MOD-SEVERE PAIN (4-10/10) Al Hydroxide/Mg Hydroxide (Mylanta Ii) 15 - 30 ml PO Q4H PRN PRN PRN Reason: INDIGESTION Albuterol Sulfate (Ventolin Aerosols) 2.5 mg INHALATION Q2H PRN PRN PRN Reason: dyspnea, wheezing Albuterol/Ipratropium (Duoneb) 3 ml INHALATION Q6HWA.RT [facility] Last Admin: 12/12/18 13:21 Dose: 3 ml Documented by: Allopurinol (Zyloprim) 100 mg PO DAILY [facility] Last Admin: 12/12/18 13:04 Dose: 100 mg Documented by: Amlodipine Besylate (Norvasc) 10 mg PO BID [facility] Last Admin: 12/12/18 09:08 Dose: 10 mg Documented by: Aspirin (Ecotrin) 81 mg PO DAILY [facility] Last Admin: 12/12/18 09:08 Dose: 81 mg Documented by: Dextrose (D50w Syringe) 0 gm IV X1 PRN; Protocol PRN Reason: Hypoglycemia Fluoxetine HCl (Prozac) 40 mg PO DAILY [facility] Last Admin: 12/12/18 09:15 Dose: 40 mg Documented by: Glucagon () 1 mg IM .X1 PRN PRN Reason: Hypoglycemia Heparin Sodium (Porcine) (Heparin Na) 5,000 unit SC Q12 [facility] Last Admin: 12/12/18 09:08 Dose: 5,000 unit Documented by: Hydralazine HCl (Apresoline Iv) 10 mg IV Q4H PRN PRN PRN Reason: SBP > 160 Sodium Chloride () 250 mls @ 15 mls/hr IV .[id number] PRN PRN Reason: SALINE FLUSH Piperacillin Sod/Tazobactam (Sod 3.375 gm/ Sodium Chloride) 50 mls @ 12.5 mls/hr IV Q12 [facility] Insulin Glargine (Lantus (Bk)) 40 units SC BID [facility] Last Admin: 12/12/18 09:07 Dose: 40 units Documented by: Insulin Human Lispro (Humalog Kwikpen (Bk)) 0 unit SC ACHS [facility]; Protocol Last Admin: 12/12/18 11:02 Dose: Not Given Documented by: Insulin Lispro Protam/Lispro Human (Humalog Mix 75-25 Kwikpen) 36 unit SC TIDCM [facility] Last Admin: 12/12/18 11:01 Dose: 36 units Documented by: Magnesium Hydroxide (Milk Of Magnesia) 30 ml PO DAILY PRN PRN Reason: Constipation Melatonin (Melatonin) 3 mg PO QHS PRN PRN PRN Reason: INSOMNIA Last Admin: 12/11/18 21:17 Dose: 3 mg Documented by: Metoprolol Tartrate (Lopressor (Beta Ayde)) 50 mg PO BID [facility] Last Admin: 12/12/18 09:09 Dose: 50 mg Documented by: Morphine Sulfate () 1 - 2 mg IV Q4H PRN PRN PRN Reason: PAIN Nitroglycerin (Nitrostat) 0.4 mg SUBLINGUAL Q5M PRN PRN Reason: CARDIAC/CHEST PAIN Ondansetron HCl (Zofran) 4 mg IV Q8H PRN PRN PRN Reason: NAUSEA/VOMITING Pharmacy Profile Note () 1 each NOTE X1 PRN PRN Reason: NOT SPECIFIED Ranolazine (Ranexa) 1,000 mg PO BID [facility] Last Admin: 12/12/18 09:08 Dose: 1,000 mg Documented by: Sodium Chloride () 10 - 40 ml IV UD PRN PRN Reason: SALINE FLUSH Last Admin: 12/11/18 21:12 Dose: 10 ml Documented by: Trazodone HCl (Desyrel) 50 mg PO QHS PRN PRN Reason: SLEEP Last Admin: 12/11/18 21:11 Dose: 50 mg Documented by: - Past Medical History Past Medical History (Chronic Problems): Chronic Problems (Last Reviewed 11/05/18 @ 10:26 by Pili May) CKD (chronic kidney disease), stage III (Chronic) Pure hypercholesterolemia (Chronic) Type 2 diabetes mellitus (Chronic) Presence of stent in coronary artery (Chronic ~08/25/14) 07/18/10, PTCA/stent to mid to distal LCx artery; 08/17/10 PTCA/stent to proximal to mid RCA; PTCA of distal RCA with DEX September 2010; PTCA with EULALIO to mid distal AV groove left CFX 08/13 Essential hypertension (Chronic) Nonrheumatic aortic (valve) stenosis (Chronic) Nonspecific abnormal unspecified cardiovascular function study (Chronic) Diastolic dysfunction (Chronic) Other fdc (current) drug therapy (Chronic) Nicotine abuse (Chronic) Atherosclerotic heart disease of [place] coronary artery without angina pectoris (Chronic) S/P multivessel PTCA/stent and subsequent CABG with SVG to LCx, RCA and diagonal branch with subsequent SVG graft closure to the LCx and diagonal branch; S/P CABG x 3 (Chronic ~07/21/12) CABG-SVG to diagonal, SVG to obtuse marginal & SVG to PDA 07/12; GERD (gastroesophageal reflux disease) (Chronic) Anxiety (Chronic) - Past Surgical History Surgical History: angioplasty, arthroscopy, knee, coronary bypass surgery, - - Patient status post CABG x3, serial PCI, bilateral total knee replacement, rotator cuff repair, partial colectomy, cholecystectomy, carpal tunnel surgery. - Social History Smoking Status: Former smoker Alcohol: None Drugs: None - Family History Maternal Family History: Family History (Last Reviewed 11/05/18 @ 10:26 by Pili May) Father CAD (coronary artery disease) Afib Aortic valve replaced Mother Cancer Son Lupus History Items: Cancer Paternal Family History: Family History (Last Reviewed 11/05/18 @ 10:26 by Pili May) Father CAD (coronary artery disease) Afib Aortic valve replaced Mother Cancer Son Lupus History Items: High Cholesterol, Heart Disease - Atrial fibrillation; valvular heart disease status post aVR; , Hypertension Patient Problems: Active and Suspected Problems (Last Reviewed 11/05/18 @ 10:26 by Pili May) Nephrotic range proteinuria (Acute) Chest pain (Acute) EDGARDO (acute kidney injury) (Acute) - Physical Exam General: Alert, Oriented x3 HEENT: Atraumatic Oral: Moist Mucosa Neck: Supple, No JVD Lungs: Clear to auscultation, Normal air movement, No rhonchi, - Abdomen: Bowel Sounds Present, Soft, Distended Extremities: No clubbing, No cyanosis, No edema Skin: No rashes Musculoskeletal: No Tenderness to Palpation of Joints or Extremities Lymphatic: No Cervical, Supraclavicular, or Inguinal Adenopathy Neurological: Cranial nerves II-XII grossly intact, Neuro grossly intact Psych/Mental Status: Appropriate Vital Signs Temp Pulse Resp BP Pulse Ox 97.9 F 68 18 116/66 96 12/12/18 15:38 12/12/18 15:38 12/12/18 15:38 12/12/18 15:38 12/12/18 15:38 Oxygen Flow Rate (L/min) 4.5 Oxygen Delivery Method Bi-pap Weight: 120.2 kg Body Mass Index (BMI) 39.4 Finger Stick Blood Glucose 269 Intake and Output for Last 24 Hours 12/10/18 12/11/18 12/12/18 23:59 23:59 23:59 Intake Total 640 / 640 750 / 750 Output Total 2400 / 2400 500 / 500 Balance -1760 / -1760 250 / 250 Microbiology Past 72 Hours 12/12/18 13:54 Gram Stain - Final Sputum, Expectorated/Coughed 12/11/18 20:20 Respiratory Panel (PCR) - Final Mucosa - Nose 12/11/18 15:20 Streptococcus pneumoniae Antigen (M - Final Urine, Clean Catch 12/11/18 15:20 Legionella Antigen - Final Urine, Clean Catch Laboratory Tests Past 24 Hrs 12/11/18 12/11/18 12/11/18 06:25 06:25 15:20 WBC RBC Hgb Hct MCV MCH MCHC RDW Std Deviation RDW Coeff of Judi Plt Count MPV ESR 81 H Sodium Potassium Chloride Carbon Dioxide Anion Gap BUN Creatinine Estim Creat Clear Calc Est GFR (MDRD) Af Amer Est GFR (MDRD) Non-Af BUN/Creatinine Ratio Glucose Calcium Phosphorus Magnesium Iron TIBC Iron Saturation Ferritin Total Bilirubin AST ALT Alkaline Phosphatase C-React Prot Ext Range 71.10 H Total Protein Albumin Globulin Albumin/Globulin Ratio Folate Urine Color Urine Clarity Urine pH Ur Specific [place] Urine Protein Urine Glucose (UA) Urine Ketones Urine Occult Blood Urine Nitrite Urine Bilirubin Urine Urobilinogen Ur Leukocyte Esterase Urine RBC Urine WBC Ur Squamous Epith Cells Ur Transition Epith Cell Urine Bacteria Hyaline Casts Fine Granular Casts Urine Mucus Ur Random Sodium Urine Creatinine 75.30 MRSA (PCR) Blood Type Antibody Screen Crossmatch 12/11/18 12/11/18 12/12/18 15:20 15:20 05:35 WBC 9.0 RBC 3.12 L Hgb 8.9 L Hct 28.3 L MCV 90.7 MCH 28.5 MCHC 31.4 L RDW Std Deviation 48.8 H RDW Coeff of Judi 14.7 H Plt Count 263 MPV 9.7 ESR Sodium Potassium Chloride Carbon Dioxide Anion Gap BUN Creatinine Estim Creat Clear Calc Est GFR (MDRD) Af Amer Est GFR (MDRD) Non-Af BUN/Creatinine Ratio Glucose Calcium Phosphorus Magnesium Iron TIBC Iron Saturation Ferritin Total Bilirubin AST ALT Alkaline Phosphatase C-React Prot Ext Range Total Protein Albumin Globulin Albumin/Globulin Ratio Folate Urine Color Yellow Urine Clarity Clear Urine pH 6.0 Ur Specific [place] 1.015 Urine Protein 500 H Urine Glucose (UA) 100 H Urine Ketones Negative Urine Occult Blood Negative Urine Nitrite Negative Urine Bilirubin Negative Urine Urobilinogen Normal Ur Leukocyte Esterase Negative Urine RBC 0-5 SEEN Urine WBC 0-5 SEEN Ur Squamous Epith Cells 0 SEEN Ur Transition Epith Cell 0 SEEN Urine Bacteria 0 SEEN Hyaline Casts 0-5 SEEN Fine Granular Casts 0-5 SEEN Urine Mucus 0 SEEN Ur Random Sodium 87 Urine Creatinine MRSA (PCR) Blood Type Antibody Screen Crossmatch 12/12/18 12/12/18 12/12/18 05:35 05:35 05:35 WBC RBC Hgb Hct MCV MCH MCHC RDW Std Deviation RDW Coeff of Judi Plt Count MPV ESR Sodium 147 H Potassium 3.9 Chloride 112 H Carbon Dioxide 28.0 Anion Gap 7 BUN 62 H Creatinine 3.61 H Estim Creat Clear Calc 19.86 Est GFR (MDRD) Af Amer 22 L Est GFR (MDRD) Non-Af 18 L BUN/Creatinine Ratio 17.2 Glucose 65 L Calcium 8.5 Phosphorus 6.0 H Magnesium 2.4 Iron 25 L TIBC 270 Iron Saturation 9.3 L Ferritin 232 Total Bilirubin 0.60 AST 16 ALT 26 Alkaline Phosphatase 46 C-React Prot Ext Range Total Protein 6.4 Albumin 2.1 L Globulin 4.3 H Albumin/Globulin Ratio 0.5 L Folate 16.40 Urine Color Urine Clarity Urine pH Ur Specific [place] Urine Protein Urine Glucose (UA) Urine Ketones Urine Occult Blood Urine Nitrite Urine Bilirubin Urine Urobilinogen Ur Leukocyte Esterase Urine RBC Urine WBC Ur Squamous Epith Cells Ur Transition Epith Cell Urine Bacteria Hyaline Casts Fine Granular Casts Urine Mucus Ur Random Sodium Urine Creatinine MRSA (PCR) Blood Type Antibody Screen Crossmatch 12/12/18 12/12/18 13:30 15:25 WBC RBC Hgb Hct MCV MCH MCHC RDW Std Deviation RDW Coeff of Judi Plt Count MPV ESR Sodium Potassium Chloride Carbon Dioxide Anion Gap BUN Creatinine Estim Creat Clear Calc Est GFR (MDRD) Af Amer Est GFR (MDRD) Non-Af BUN/Creatinine Ratio Glucose Calcium Phosphorus Magnesium Iron TIBC Iron Saturation Ferritin Total Bilirubin AST ALT Alkaline Phosphatase C-React Prot Ext Range Total Protein Albumin Globulin Albumin/Globulin Ratio Folate Urine Color Urine Clarity Urine pH Ur Specific [place] Urine Protein Urine Glucose (UA) Urine Ketones Urine Occult Blood Urine Nitrite Urine Bilirubin Urine Urobilinogen Ur Leukocyte Esterase Urine RBC Urine WBC Ur Squamous Epith Cells Ur Transition Epith Cell Urine Bacteria Hyaline Casts Fine Granular Casts Urine Mucus Ur Random Sodium Urine Creatinine MRSA (PCR) Pending Blood Type B POSITIVE Antibody Screen NEGATIVE Crossmatch See Detail POC Glucose 12/12/18 12/12/18 12/11/18 11:00 08:05 21:15 POC Glucose 147 H 72 172 H 12/11/18 16:28 POC Glucose 232 H Assessment/Plan All Active Problems (Last Reviewed 11/05/18 @ 10:26 by Pili May) Nephrotic range proteinuria (Acute) CHF exacerbation (Acute) Chest pain (Acute) EDGARDO (acute kidney injury) (Acute) Choledocholithiasis with acute cholecystitis (Acute) Abnormal LFTs (Acute) 1- EDGARDO on CKD stage 4. Baseline Cr ~ 2.6-2.7 mg/dL from most probably DNP. Pt has significant proteinuria. As per Dr Rodrigez clinic note, Pro/Cr was around 11 mg/mg. I believe worsening kidney function might be from CKD progression in addition to prerenal from diuresis in patient with low serum albumin. Cr is up 3.8 mg/dL. I agree with holding diuretics for now. Please avoid ACEI/ARB. Avoid IV contrast No need for INLAYER Chekck renal function in am 2- HTN: BP is well controlled. BP target < 130/80. Max dose of norvasc is 10 mg PO daily. Will decrease norvasc to 10 mg PO daily 3- Nephrotic range proteinuria with low serum albumin. Pt might need kidney Bx to rule out other etiology like MN. Will defer this to Dr. Rodrigez 4- RF from pneumonia Vs CHF. Most likely Pneumonia Agree with holding diuretic Continue Abx as per ID or the primary service 02 support to keep S02 > 92% Thank you for allowing me to participate in Mr. Gardner's care Renal team will continue to follow Please call if any question at [phone] d/w Dr. Shawn Joyce MD
[2018-12-12] MEDS: Insulin Lispro 100 UNIT/ML INSULN.PEN SC ×2 (16:38→22:35)
[2018-12-12 16:46] LABS: Bedside Glucose 182 mg/dL (70-110)
[2018-12-12 17:18] LABS: M R Staph aureus DNA By PCR Negative (Negative); Probe Check PASS; Specimen Processing Control PASS
[2018-12-12 22:36] LABS: Bedside Glucose 227 mg/dL (70-110)
[2018-12-12] MEDS: MELATONIN 3 MG TABLET PO (22:38)
[2018-12-13] VITALS (21 sets, daily range): BP systolic 112–150; BP diastolic 54–96; PULSE 56–76; RESP 12–32; TEMP 36.4–36.9; O2SAT 89–100
[2018-12-13 06:45] LABS: Hematocrit 29.9 % (40-54); Hemoglobin 9.2 g/dL (13.0-16.5); Mean Corp Hgb Conc 30.8 g/dL (32-36); Mean Corpuscular Volume 91.2 fL (80-94); Mean Platelet Vol. 9.7 fl (6.2-12.0); Platelet Count 237 K/mm3 (150-450); RBC Distribution Width CV 14.5 % (11.6-14.6); RBC Distribution Width SD 48.1 fl (35.1-43.9); Red Blood Count 3.28 M/mm3 (4.6-6.2); White Blood Count 9.6 K/mm3 (4.4-11.0)
[2018-12-13 07:09] LABS: Anion Gap 9 (5-15); BUN 76 mg/dL (7-18); BUN/Creat Ratio 15.2 RATIO (10-20); Calcium,Total 8.4 mg/dL (8.5-10.1); Chloride 110 mmol/L (98-107); Creatinine, Serum 4.99 mg/dL (0.70-1.30); EST Glomerular Filtration Rate 12 mL/min (>60); Est Glom Filt Rate - Afr Amer 15 mL/min (>60); Estimated Creatinine Clearance 14.37 ml/min; Glucose 146 mg/dL (74-106); Potassium 5.2 mmol/L (3.5-5.1); Sodium Level 144 mmol/L (136-145)
--- NOTE | 2018-12-13 07:41 | PN_ITS ---
Patient Problems: Active and Suspected Problems (Last Reviewed 11/05/18 @ 10:26 by Pili May) Nephrotic range proteinuria (Acute) Chest pain (Acute) EDGARDO (acute kidney injury) (Acute) Subjective: The patient was seen and examined at the bedside this morning. Events from the last 24 hours have been reviewed. The patient is currently afebrile and hemodynamically stable. He has been compliant with the use of nocturnal BiPAP with a pressure support of 14/8 with an FiO2 of 45%. The patient reports to me this morning that he likes the increased pressure support that is currently being provided to him through his BiPAP as compared to his CPAP that he utilizes in his home environment. The patient was started empirically on antimicrobial therapy yesterday. He also received 1 unit of packed red blood cells. Creatinine has worsened this morning to 4.99. Objective: The patient's most recent lab work, culture data and imaging studies have all been personally reviewed. Surface echocardiogram revealed normal LV size with concentric LVH and an ejection fraction of 65%. There was moderate to severe aortic stenosis. Strep and urine Legionella antigens were both negative. Respiratory viral panel was negative. Expectorated sputum culture is currently pending. - Physical Exam General: Alert, Oriented x3, Cooperative, No apparent distress, - - BiPAP mask in place. Morbidly obese. HEENT: Atraumatic, PERRLA, Normocephalic Oral: No Gingival or Mucosal Lesions/ Ulcerations Neck: Supple, No Nodes, Trachea Midline Lungs: No rhonchi, No wheeze, Diminished, Rales Cardiovascular: Regular rate, Regular Rhythm, Normal S1, Normal S2, Murmur Abdomen: Bowel Sounds Present, Soft, Non Tender, Obese, - - Protuberant abdomen Extremities: No clubbing, No cyanosis Skin: No breakdown Musculoskeletal: No Tenderness to Palpation of Joints or Extremities, No Muscle Wasting Lymphatic: No Cervical, Supraclavicular, or Inguinal Adenopathy Neurological: Cranial nerves II-XII grossly intact, Neuro grossly intact Psych/Mental Status: Alert and oriented to time, place, person, mood and affect Vital Signs Temp Pulse Resp BP Pulse Ox 98.0 F 60 18 117/54 L 96 12/13/18 05:54 12/13/18 05:54 12/13/18 05:54 12/13/18 05:54 12/13/18 05:54 Oxygen Flow Rate (L/min) 4.5 Oxygen Delivery Method Bi-pap Weight: 269 lb 13.533 oz Body Mass Index (BMI) 39.4 Finger Stick Blood Glucose 269 Intake and Output for Last 24 Hours 12/11/18 12/12/18 12/13/18 23:59 23:59 23:59 Intake Total 640 / 640 2370 / 2370 170 / 170 Output Total 2400 / 2400 2100 / 2100 200 / 200 Balance -1760 / -1760 270 / 270 -30 / -30 Microbiology Past 72 Hours 12/12/18 13:54 Gram Stain - Final Sputum, Expectorated/Coughed 12/11/18 20:20 Respiratory Panel (PCR) - Final Mucosa - Nose 12/11/18 15:20 Streptococcus pneumoniae Antigen (M - Final Urine, Clean Catch 12/11/18 15:20 Legionella Antigen - Final Urine, Clean Catch Laboratory Tests Past 24 Hrs 12/12/18 12/12/18 12/12/18 05:35 13:30 15:25 WBC RBC Hgb Hct MCV MCH MCHC RDW Std Deviation RDW Coeff of Judi Plt Count MPV Sodium Potassium Chloride Carbon Dioxide Anion Gap BUN Creatinine Estim Creat Clear Calc Est GFR (MDRD) Af Amer Est GFR (MDRD) Non-Af BUN/Creatinine Ratio Glucose Calcium Iron 25 L TIBC 270 Iron Saturation 9.3 L Ferritin 232 Vitamin B12 Folate 16.40 MRSA (PCR) Negative Blood Type B POSITIVE Antibody Screen NEGATIVE Crossmatch See Detail 12/13/18 12/13/18 12/13/18 06:30 06:30 06:30 WBC 9.6 RBC 3.28 L Hgb 9.2 L Hct 29.9 L MCV 91.2 MCH 28.0 MCHC 30.8 L RDW Std Deviation 48.1 H RDW Coeff of Judi 14.5 Plt Count 237 MPV 9.7 Sodium 144 Potassium 5.2 H Chloride 110 H Carbon Dioxide 25.0 Anion Gap 9 BUN 76 H Creatinine 4.99 H Estim Creat Clear Calc 14.37 Est GFR (MDRD) Af Amer 15 L Est GFR (MDRD) Non-Af 12 L BUN/Creatinine Ratio 15.2 Glucose 146 H Calcium 8.4 L Iron TIBC Iron Saturation Ferritin Vitamin B12 Pending Folate MRSA (PCR) Blood Type Antibody Screen Crossmatch POC Glucose 12/12/18 12/12/18 12/12/18 22:29 16:35 11:00 POC Glucose 227 H 182 H 147 H 12/12/18 08:05 POC Glucose 72 Clinical Impression(s) from Imaging Studies Chest X-Ray 12/10/18 21:29 IMPRESSION: Bilateral perihilar pneumonia versus pulmonary edema. Electronically Signed: Luis E Fishman, DO at 22:01 EDT Tel [phone], Service support , Renal Ultrasound 12/11/18 13:27 IMPRESSION: Bilateral renal cysts. Electronically Signed: Marek Daniel, DO at 21:57 EDT Tel [phone], Service support , Chest X-Ray 12/12/18 05:55 IMPRESSION: Progressive bilateral infiltrates. Electronically Signed: Keagan Long, at 11:07 EDT , Service support , Medical Necessity - Tobacco Use Smoking Status: Former smoker Tobacco Use: Non-smoker Assessment/Plan All Active Problems (Last Reviewed 11/05/18 @ 10:26 by Pili May) Nephrotic range proteinuria (Acute) CHF exacerbation (Acute) Chest pain (Acute) EDGARDO (acute kidney injury) (Acute) Choledocholithiasis with acute cholecystitis (Acute) Abnormal LFTs (Acute) RECOMMENDATIONS: 1. Continue Zosyn, pending infectious work-up. 2. Continue bronchodilators. 3. Continue nocturnal Pap therapy. 4. Wean supplemental oxygen to maintain saturations at or above 90%. 5. Encourage incentive spirometer use and mobilize patient as tolerated. IMPRESSIONS: 1. Acute hypoxemic respiratory insufficiency While initially felt to be secondary to decompensated heart failure, the radiographic findings noted on chest x-ray is more concerning for multilobar pneumonia. The patient has been diuresed with worsening renal function and no significant improvement in his respiratory status. Agree with discontinuation of diuretics for now. Wean supplemental oxygen to maintain saturations at or above 90%. Continue empiric antimicrobial therapy, pending infectious work-up. If the patient does not respond to antibiotics over the next 48 hours, I would have a low threshold for obtaining a noncontrasted chest CT. Encourage incentive spirometer use and mobilize patient as tolerated. 2. Coronary artery disease/heart failure with preserved ejection fraction/valvular heart disease The patient does not appear to be overtly volume overloaded at this time. Cardiology is currently following. Agree with holding diuretic therapy. 3. Acute on chronic kidney disease Suspect prerenal etiology due to use of diuretics. Nephrology is following. Continue to hold nephrotoxic medications. There is no current indication for renal replacement therapy. 4. Chronic anemia The patient has baseline chronic anemia. In his setting of coronary artery disease, the patient was transfused 1 unit of packed red blood cells. At the current time, there are no signs of overt blood loss. There is no indication for transfusion of additional blood products. 5. Obstructive sleep apnea Continue nocturnal Pap therapy. Given the patient's weight gain over the last year, he may require a re-titration study and subsequent increase in his pressure support. This can be completed on an outpatient basis. 6. Diabetes mellitus/hypertension/hyperlipidemia/anxiety/depression/CODE STATUS Complicates care, management, recovery and prognosis. I personally discussed CODE STATUS with the patient at the bedside who indicated that he would not want to have chest compressions or be intubated and placed on a ventilator. CODE STATUS updated to DNR CCA. This note was generated with [employer] dictation software. It may contain incorrect words, spelling, and punctuation that were not noted in checking the note before signing. Code Visit Inpatient E&M: 36869 [facility] [[email or web address]] Hosp L2
[2018-12-13] MEDS: Ipratropium/Albuterol Sulfate 3 ML AMPUL.NEB INHALATION ×3 (07:48→18:56)
[2018-12-13 08:44] LABS: Vitamin B12 976 pg/mL (211-911)
[2018-12-13] MEDS: Insulin Human 75/25 Kwickpen 36 UNIT SC ×2 (09:31→12:41)
[2018-12-13] MEDS: Aspirin E.C. 81 MG Tablet PO (09:32)
[2018-12-13] MEDS: Heparin Injection (Vial) 5,000 UNIT/ML VIAL 5000 UNIT SC (09:32)
[2018-12-13] MEDS: Metoprolol Tartrate 50 MG Tablet PO ×2 (09:33→22:27)
[2018-12-13] MEDS: Ranolazine 500 MG Tablet 1000 MG PO ×2 (09:34→22:28)
[2018-12-13] MEDS: Allopurinol 100 MG Tablet PO (09:34)
[2018-12-13] MEDS: FLUoxetine 10 MG Capsule 40 MG PO (09:34)
[2018-12-13] MEDS: amLODIPine 10 MG Tablet PO (09:34)
[2018-12-13] MEDS: 0.9% NaCl Peripheral Flush Adult/Peds IV ×2 (09:41→22:58)
[2018-12-13 10:10] LABS: Bedside Glucose 142 mg/dL (70-110)
--- NOTE | 2018-12-13 12:58 | PN_ITS ---
Patient Problems: Active and Suspected Problems (Last Reviewed 11/05/18 @ 10:26 by Pili May) Nephrotic range proteinuria (Acute) Chest pain (Acute) EDGARDO (acute kidney injury) (Acute) Subjective: Patient seen and examined. Reports breathing is mildly improved. Continues to have significant dyspnea on exertion. Denies other current complaints. - Physical Exam General: Alert, Oriented x3, Cooperative HEENT: Atraumatic, PERRLA, EOMI, Normocephalic Neck: Supple, No JVD, Negative Carotid Bruits Lungs: Diminished, - - Faint scattered crackles Cardiovascular: Regular rate, Regular Rhythm, Normal S1, Normal S2, Murmur Abdomen: Bowel Sounds Present, Soft, Non Tender, Non-Distended, Obese Extremities: No clubbing, No cyanosis, Capillary Refill Less than 3 Seconds, Edema - Bilateral lower extremities, Griffin wraps in place Skin: No rashes, No breakdown Musculoskeletal: No Tenderness to Palpation of Joints or Extremities Neurological: Cranial nerves II-XII grossly intact, Neuro grossly intact Psych/Mental Status: Normal Affect, Appropriate Vital Signs Temp Pulse Resp BP Pulse Ox 97.5 F L 73 18 116/65 92 12/13/18 09:15 12/13/18 09:33 12/13/18 09:15 12/13/18 09:33 12/13/18 09:15 Oxygen Flow Rate (L/min) 4.5 Oxygen Delivery Method Nasal Cannula Weight: 269 lb 13.533 oz Body Mass Index (BMI) 39.4 Finger Stick Blood Glucose 269 Intake and Output for Last 24 Hours 12/11/18 12/12/18 12/13/18 23:59 23:59 23:59 Intake Total 640 / 640 2370 / 2370 680 / 680 Output Total 2400 / 2400 2100 / 2100 550 / 550 Balance -1760 / -1760 270 / 270 130 / 130 Microbiology Past 72 Hours 12/13/18 09:50 Stool Occult Blood (JOSE RAMON) - Final Stool Occult Blood Positive 12/11/18 15:20 Urine Culture - Final Urine, Clean Catch Mixed Gram Positive Organisms 12/12/18 13:54 Gram Stain - Final Sputum, Expectorated/Coughed 12/11/18 20:20 Respiratory Panel (PCR) - Final Mucosa - Nose 12/11/18 15:20 Streptococcus pneumoniae Antigen (M - Final Urine, Clean Catch 12/11/18 15:20 Legionella Antigen - Final Urine, Clean Catch Laboratory Tests Past 24 Hrs 12/12/18 12/12/18 12/12/18 05:35 13:30 15:25 WBC RBC Hgb Hct MCV MCH MCHC RDW Std Deviation RDW Coeff of Judi Plt Count MPV Sodium Potassium Chloride Carbon Dioxide Anion Gap BUN Creatinine Estim Creat Clear Calc Est GFR (MDRD) Af Amer Est GFR (MDRD) Non-Af BUN/Creatinine Ratio Glucose Calcium Iron 25 L TIBC 270 Iron Saturation 9.3 L Ferritin 232 Vitamin B12 Folate 16.40 MRSA (PCR) Negative Blood Type B POSITIVE Antibody Screen NEGATIVE Crossmatch See Detail 12/13/18 12/13/18 12/13/18 06:30 06:30 06:30 WBC 9.6 RBC 3.28 L Hgb 9.2 L Hct 29.9 L MCV 91.2 MCH 28.0 MCHC 30.8 L RDW Std Deviation 48.1 H RDW Coeff of Judi 14.5 Plt Count 237 MPV 9.7 Sodium 144 Potassium 5.2 H Chloride 110 H Carbon Dioxide 25.0 Anion Gap 9 BUN 76 H Creatinine 4.99 H Estim Creat Clear Calc 14.37 Est GFR (MDRD) Af Amer 15 L Est GFR (MDRD) Non-Af 12 L BUN/Creatinine Ratio 15.2 Glucose 146 H Calcium 8.4 L Iron TIBC Iron Saturation Ferritin Vitamin B12 976 H Folate MRSA (PCR) Blood Type Antibody Screen Crossmatch POC Glucose 12/13/18 12/12/18 12/12/18 08:12 22:29 16:35 POC Glucose 142 H 227 H 182 H Medical Necessity - Tobacco Use Smoking Status: Former smoker Tobacco Use: Non-smoker Assessment/Plan All Active Problems (Last Reviewed 11/05/18 @ 10:26 by Pili May) Nephrotic range proteinuria (Acute) CHF exacerbation (Acute) Chest pain (Acute) EDGARDO (acute kidney injury) (Acute) Choledocholithiasis with acute cholecystitis (Acute) Abnormal LFTs (Acute) 1. Acute hypoxic respiratory failure secondary to multilobar pneumonia-chest x- ray this morning shows progressive bilateral infiltrates. Pulmonary medicine consulted. Continue supplement oxygen to maintain O2 at or above 90%. IV Zosyn. Urine for strep and Legionella negative. Respiratory panel negative. Sputum culture pending. If no improvement in the next 24 hours, plan on CT without contrast. 2. Chronic diastolic CHF, acute CHF ruled out-BNP 459, patient with CKD stage IV. Recent stress test June 2017 with LVEF 53%. IV Lasix discontinued. Griffin wraps bilateral lower extremities. Repeat echocardiogram demonstrates an EF of 65%, moderate to severe . Hold home diuretic regimen given worsening renal function. 3. Chest pain-EKG without ST-T changes. Troponin negative. Cardiology consulted for further cardiac evaluation. Known CAD with known occluded SVG to first diagonal and occluded SVG to first OM. Patient started on Ranexa by cardiology. Possible consideration for cardiac catheterization in the future pending improvement of kidney function. 4. Acute kidney injury on chronic kidney disease stage IV-worsening creatinine. Renal ultrasound shows bilateral renal cyst. Nephrology consulted. FENa 4%. 5. Nonrheumatic aortic valve stenosis-repeat echocardiogram as noted above. 6. CAD with history of PCI and CABG x3-follows with Dr. Green. Continue aspirin, metoprolol regimen. 7. Type 2 diabetes [id number] AC at bedtime with sliding scale insulin. Continue home long-acting regimen. Hemoglobin A1c 9.1%. 8. Hypertension-stable, continue home amlodipine, metoprolol, isosorbide regimen. 9. Hyperlipidemia-continue home fenofibrate regimen. 10. Chronic COPD-no acute exacerbation. As needed albuterol aerosol. 11. Acute on Chronic normocytic anemia-status post 2 unit PRBC. Stool positive for occult blood. Iron studies show iron deficiency. PPI and iron supplementation added. 12. Obesity-diet and lifestyle modifications encouraged. 13. Anxiety/depression-continue home fluoxetine regimen. 14. DASHA-continue CPAP nightly. DVT prophylaxis- heparin sc This patient was seen by SIGIFREDO Tong under the supervision of Dr. Escobar.
--- NOTE | 2018-12-13 17:12 | PCM.PN.CARD ---
Subjectve: Patient continues to remain short of breath. His creatinine has gone up to 4.99. His Lasix has been discontinued. He is being treated for multilobar pneumonia. He does not have any chest pain. He received blood transfusion and his hemoglobin has come up a little bit. Objective: Vital Signs Temp Pulse Resp BP Pulse Ox 97.5 F L 69 22 H 134/67 H 89 12/13/18 15:15 12/13/18 15:15 12/13/18 15:15 12/13/18 15:15 12/13/18 15:15 Oxygen Flow Rate (L/min) 5 Oxygen Delivery Method Nasal Cannula Weight: 269 lb 13.533 oz Body Mass Index (BMI) 39.4 Finger Stick Blood Glucose 269 Intake and Output for Last 24 Hours 12/11/18 12/12/18 12/13/18 23:59 23:59 23:59 Intake Total 640 / 640 2370 / 2370 680 / 680 Output Total 2400 / 2400 2100 / 2100 550 / 550 Balance -1760 / -1760 270 / 270 130 / 130 General: Awake, Alert, Oriented x 3 HEENT: Atraumatic Oral: Moist Mucosa Neck: Supple Lungs: Clear to auscultation Cardiovascular: Normal S1, Normal S2 Abdomen: Soft Extremities: Trace RLE Edema, Trace LLE Edema Skin: No Rashes Psych/Mental Status: Appropriate 12/13/18 06:30: WBC 9.6, RBC 3.28 L, Hgb 9.2 L, Hct 29.9 L, MCV 91.2, MCH 28.0, MCHC 30.8 L, Plt Count 237, MPV 9.7 12/13/18 06:30: Sodium 144, Potassium 5.2 H, Chloride 110 H, Carbon Dioxide 25.0, Anion Gap 9, BUN 76 H, Creatinine 4.99 H, Est GFR (MDRD) Af Amer 15 L, Est GFR (MDRD) Non-Af 12 L, BUN/Creatinine Ratio 15.2, Glucose 146 H, Calcium 8.4 L Rhythm: EKG: ECHO: Stress Test: Cardiac Cath: PCI: CT Surgery: Holter monitor: EPS: PPM: CXR: Chest CT Scan: Medical Necessity - Tobacco Use Smoking Status: Former smoker Tobacco Use: Non-smoker Assessment/Plan 1. Chest pain: This appears to have resolved at this time. Appears to have been noncardiac. 2. CHF: Patient is compensated from a cardiac standpoint. He is not volume overloaded. Agree with continuing to hold the Lasix.
[2018-12-13 17:50] LABS: Bedside Glucose 146 mg/dL (70-110)
[2018-12-13] MEDS: Ferrous Sulfate 325 MG Tablet PO (18:24)
[2018-12-13 19:20] LABS: Bedside Glucose 57 mg/dL (70-110)
--- NOTE | 2018-12-13 19:57 | PN.RENAL_ITS ---
Patient Problems: Active and Suspected Problems (Last Reviewed 11/05/18 @ 10:26 by Pili May) Nephrotic range proteinuria (Acute) Chest pain (Acute) EDGARDO (acute kidney injury) (Acute) Subjective: Fllowing for EDGARDO on CKD. Pt is on NIV. He denies CP. Still SOB but not worse than yesterday. No nausea/vomiting. Not confused. LE Edema is subjectively the same. - Physical Exam General: Alert, Oriented x3 HEENT: Atraumatic Oral: Moist Mucosa Neck: Supple Lungs: Diminished - at bases Cardiovascular: Normal S1, Normal S2, No rub noted Abdomen: Bowel Sounds Present, Soft, Non Tender, Distended Extremities: Edema - 2+ in LE. Exam limited by WILMER wrap. Vital Signs Temp Pulse Resp BP Pulse Ox 98.1 F 62 18 136/72 H 98 12/13/18 16:15 12/13/18 16:15 12/13/18 16:15 12/13/18 16:15 12/13/18 16:15 Oxygen Flow Rate (L/min) 5 Oxygen Delivery Method Bi-pap Weight: 122.4 kg Body Mass Index (BMI) 39.4 Finger Stick Blood Glucose 269 Intake and Output for Last 24 Hours 12/11/18 12/12/18 12/13/18 23:59 23:59 23:59 Intake Total 640 / 640 2370 / 2370 680 / 680 Output Total 2400 / 2400 2100 / 2100 550 / 550 Balance -1760 / -1760 270 / 270 130 / 130 Microbiology Past 72 Hours 12/13/18 09:50 Stool Occult Blood (JOSE RAMON) - Final Stool Occult Blood Positive 12/11/18 15:20 Urine Culture - Final Urine, Clean Catch Mixed Gram Positive Organisms 12/12/18 13:54 Gram Stain - Final Sputum, Expectorated/Coughed 12/11/18 20:20 Respiratory Panel (PCR) - Final Mucosa - Nose 12/11/18 15:20 Streptococcus pneumoniae Antigen (M - Final Urine, Clean Catch 12/11/18 15:20 Legionella Antigen - Final Urine, Clean Catch Laboratory Tests Past 24 Hrs 12/13/18 12/13/18 12/13/18 06:30 06:30 06:30 WBC 9.6 RBC 3.28 L Hgb 9.2 L Hct 29.9 L MCV 91.2 MCH 28.0 MCHC 30.8 L RDW Std Deviation 48.1 H RDW Coeff of Judi 14.5 Plt Count 237 MPV 9.7 Sodium 144 Potassium 5.2 H Chloride 110 H Carbon Dioxide 25.0 Anion Gap 9 BUN 76 H Creatinine 4.99 H Estim Creat Clear Calc 14.37 Est GFR (MDRD) Af Amer 15 L Est GFR (MDRD) Non-Af 12 L BUN/Creatinine Ratio 15.2 Glucose 146 H Calcium 8.4 L Vitamin B12 976 H POC Glucose 12/13/18 12/13/18 12/13/18 17:53 12:36 08:12 POC Glucose 57 L 146 H 142 H 12/12/18 22:29 POC Glucose 227 H Medical Necessity - Tobacco Use Smoking Status: Former smoker Tobacco Use: Non-smoker Assessment/Plan All Active Problems (Last Reviewed 11/05/18 @ 10:26 by Pili May) Nephrotic range proteinuria (Acute) CHF exacerbation (Acute) Chest pain (Acute) EDGARDO (acute kidney injury) (Acute) Choledocholithiasis with acute cholecystitis (Acute) Abnormal LFTs (Acute) 1- EDGARDO on CKD stage 4. Baseline Cr ~ 2.6-2.7 mg/dL when last seen by Dr. Rodrigez. Had UPCR of 11 g/g ini October, likely due to diabetic nephropathy. Renal function has been deteriorating over the past year. Suspect what we are seeing is progressive deterioration of renal function leading to volume OL/HF (type 4 CRS). Lasix on hold because of rising SCr. Interestingly, weight has been going up despite diuresis. No urgent need for dialysis, but I did bring the possibility up today. Recheck SCr again in am. 2- HTN. BP is well controlled. BP target < 130/80. Continue current antihypertensive. 3- Nephrotic range proteinuria with low serum albumin. Highly suspect that the pt has diabetic nephropathy given the history of poorly controlled blood sugar (HgbA1C 9.1%). UA did not show RBC. Doubt a kidney biopsy would change our tr eatment at this point. 4- Acute hypoxic respiratory failure. HF vs pneumonia. Suspect there may be both. Suspecting pneumonia now since respiratory symptom has not improved much with diuresis. Situation complicated by rising SCr during diuresis. On Zosyn. On NIV. Pulmonary following. WBC is not super high even on admission (before antibiotic started). Would checking procalcitonin help in this situation to clarify presence of infection? Will defer to hospital medicine and pulmonary. Lasix is on hold. Will reassess volume status again tomorrow.
[2018-12-13 22:26] LABS: Bedside Glucose 80 mg/dL (70-110)
[2018-12-14] VITALS (49 sets, daily range): BP systolic 105–151; BP diastolic 55–114; PULSE 50–78; RESP 8–41; TEMP 36.2–37.2; O2SAT 65–97
[2018-12-14] MEDS: Ipratropium/Albuterol Sulfate 3 ML AMPUL.NEB INHALATION ×4 (01:18→19:03)
[2018-12-14] MEDS: 0.9% NaCl Peripheral Flush Adult/Peds IV ×4 (06:17→22:37)
[2018-12-14 06:30] LABS: Hematocrit 32.5 % (40-54); Hemoglobin 10.2 g/dL (13.0-16.5); Mean Corp Hgb Conc 31.4 g/dL (32-36); Mean Corpuscular Hgb 28.4 pg (27.0-32.0); Mean Corpuscular Volume 90.5 fL (80-94); Mean Platelet Vol. 9.8 fl (6.2-12.0); Platelet Count 314 K/mm3 (150-450); RBC Distribution Width CV 14.2 % (11.6-14.6); RBC Distribution Width SD 47.2 fl (35.1-43.9); Red Blood Count 3.59 M/mm3 (4.6-6.2)
[2018-12-14 06:50] LABS: Anion Gap 9 (5-15); BUN 80 mg/dL (7-18); BUN/Creat Ratio 15.1 RATIO (10-20); Calcium,Total 8.2 mg/dL (8.5-10.1); Chloride 106 mmol/L (98-107); EST Glomerular Filtration Rate 12 mL/min (>60); Est Glom Filt Rate - Afr Amer 14 mL/min (>60); Estimated Creatinine Clearance 13.52 ml/min; Glucose 57 mg/dL (74-106); Potassium 4.2 mmol/L (3.5-5.1); Sodium Level 140 mmol/L (136-145)
--- NOTE | 2018-12-14 07:00 | PN_ITS ---
Patient Problems: Active and Suspected Problems (Last Reviewed 11/05/18 @ 10:26 by Pili May) Nephrotic range proteinuria (Acute) Chest pain (Acute) EDGARDO (acute kidney injury) (Acute) Subjective: The patient was seen and examined at the bedside this morning. Events from the last 24 hours have been reviewed. The patient is currently afebrile, hemodynamically stable and maintaining appropriate oxygen saturations on BiPAP with an FiO2 requirement of 45%. Creatinine continues to worsen and was noted to be 5.3 this morning. The patient does continue to report the presence of a cough, which reportedly had some blood streaking this morning. He is found to difficulty to remain off of BiPAP for any significant amount of time. Objective: The patient's most recent lab work, culture data and imaging studies have all been personally reviewed. Surface echocardiogram revealed normal LV size with concentric LVH and an ejection fraction of 65%. There was moderate to severe aortic stenosis. Strep and urine Legionella antigens were both negative. Respiratory viral panel was negative. Expectorated sputum culture is currently pending. - Physical Exam General: Alert, Oriented x3, Cooperative, No apparent distress, - - BiPAP mask remains in place HEENT: Atraumatic, PERRLA, Normocephalic Oral: No Gingival or Mucosal Lesions/ Ulcerations Neck: Supple, No Nodes, Trachea Midline Lungs: Diminished, - - There are faint bibasilar rales but no evidence of rhonchi or wheezing. Cardiovascular: Regular rate, Regular Rhythm, Normal S1, Normal S2, Murmur Abdomen: Bowel Sounds Present, Soft, Non Tender, Obese Extremities: No clubbing, No cyanosis, Edema Skin: - - Wrapped lower extremities Musculoskeletal: No Tenderness to Palpation of Joints or Extremities, No Muscle Wasting Lymphatic: No Cervical, Supraclavicular, or Inguinal Adenopathy Neurological: Cranial nerves II-XII grossly intact, Neuro grossly intact Psych/Mental Status: Normal Affect, Appropriate Vital Signs Temp Pulse Resp BP Pulse Ox 98.9 F 65 28 H 136/71 H 92 12/14/18 06:05 12/14/18 06:05 12/14/18 06:05 12/14/18 06:05 12/14/18 06:05 Oxygen Flow Rate (L/min) 5 Oxygen Delivery Method Bi-pap Weight: 275 lb 2.19 oz Body Mass Index (BMI) 39.4 Finger Stick Blood Glucose 269 Intake and Output for Last 24 Hours 12/12/18 12/13/18 12/14/18 23:59 23:59 23:59 Intake Total 2370 / 2370 1100.0 / 1100.0 150 / 150 Output Total 2099 / 2100 900 / 900 850 / 850 Balance 270 / 270 200.0 / 200.0 -700 / -700 Microbiology Past 72 Hours 12/13/18 09:50 Stool Occult Blood (JOSE RAMON) - Final Stool Occult Blood Positive 12/11/18 15:20 Urine Culture - Final Urine, Clean Catch Mixed Gram Positive Organisms 12/12/18 13:54 Gram Stain - Final Sputum, Expectorated/Coughed 12/11/18 20:20 Respiratory Panel (PCR) - Final Mucosa - Nose 12/11/18 15:20 Streptococcus pneumoniae Antigen (M - Final Urine, Clean Catch 12/11/18 15:20 Legionella Antigen - Final Urine, Clean Catch Laboratory Tests Past 24 Hrs 12/12/18 12/13/18 12/13/18 13:30 06:30 06:30 WBC RBC Hgb Hct MCV MCH MCHC RDW Std Deviation RDW Coeff of Judi Plt Count MPV Sodium 144 Potassium 5.2 H Chloride 110 H Carbon Dioxide 25.0 Anion Gap 9 BUN 76 H Creatinine 4.99 H Estim Creat Clear Calc 14.37 Est GFR (MDRD) Af Amer 15 L Est GFR (MDRD) Non-Af 12 L BUN/Creatinine Ratio 15.2 Glucose 146 H Calcium 8.4 L Vitamin B12 976 H Blood Type B POSITIVE Antibody Screen NEGATIVE Crossmatch See Detail 12/14/18 12/14/18 05:18 05:18 WBC 11.0 RBC 3.59 L Hgb 10.2 L Hct 32.5 L MCV 90.5 MCH 28.4 MCHC 31.4 L RDW Std Deviation 47.2 H RDW Coeff of Judi 14.2 Plt Count 314 MPV 9.8 Sodium 140 Potassium 4.2 Chloride 106 Carbon Dioxide 25.0 Anion Gap 9 BUN 80 H Creatinine 5.30 H Estim Creat Clear Calc 13.52 Est GFR (MDRD) Af Amer 14 L Est GFR (MDRD) Non-Af 12 L BUN/Creatinine Ratio 15.1 Glucose 57 L Calcium 8.2 L Vitamin B12 Blood Type Antibody Screen Crossmatch POC Glucose 0912/13/18 12/13/18 22:18 17:53 12:36 POC Glucose 80 57 L 146 H 12/13/18 08:12 POC Glucose 142 H Clinical Impression(s) from Imaging Studies Chest X-Ray 12/10/18 21:29 IMPRESSION: Bilateral perihilar pneumonia versus pulmonary edema. Electronically Signed: Luis E Fishman, DO at 22:01 EDT Tel [phone], Service support , Renal Ultrasound 12/11/18 13:27 IMPRESSION: Bilateral renal cysts. Electronically Signed: Marek Daniel, DO at 21:57 EDT Tel [phone], Service support , Chest X-Ray 12/12/18 05:55 IMPRESSION: Progressive bilateral infiltrates. Electronically Signed: Keagan Long, at 11:07 EDT , Service support , Medical Necessity - Tobacco Use Smoking Status: Former smoker Tobacco Use: Non-smoker Assessment/Plan All Active Problems (Last Reviewed 11/05/18 @ 10:26 by Pili May) Nephrotic range proteinuria (Acute) CHF exacerbation (Acute) Chest pain (Acute) EDGARDO (acute kidney injury) (Acute) Choledocholithiasis with acute cholecystitis (Acute) Abnormal LFTs (Acute) RECOMMENDATIONS: 1. Continue Zosyn, pending infectious work-up. 2. Continue bronchodilators. 3. Continue BiPAP. 4. Wean supplemental oxygen to maintain saturations at or above 90%. 5. Obtain noncontrasted CT chest, given lack of overall improvement in respiratory status. 6. Encourage incentive spirometer use and mobilize patient as tolerated. IMPRESSIONS: 1. Acute hypoxemic respiratory insufficiency While initially felt to be secondary to decompensated heart failure, the radiographic findings noted on chest x-ray is more concerning for multilobar pneumonia. The patient has been diuresed with worsening renal function and no significant improvement in his respiratory status. Diuretics were subsequently discontinued and the patient was started on broad-spectrum antimicrobial therapy. Despite this, the patient continues to have significant respiratory limitations. Therefore, we will plan to obtain a noncontrasted chest CT for further evaluation. In the interim, continue BiPAP therapy and wean FiO2 to maintain oxygen saturations at or above 90%. Continue empiric antimicrobial therapy, pending infectious work-up. Checking procalcitonin would be more helpful in the setting of antibiotic de-escalation, not so much in helping to establish the presence or absence of an underlying infectious process. 2. Coronary artery disease/heart failure with preserved ejection fraction/valvular heart disease The patient does not appear to be overtly volume overloaded at this time. Cardiology is currently following. Agree with holding diuretic therapy, given worsening renal insufficiency 3. Acute on chronic kidney disease Suspect prerenal etiology due to use of diuretics, coupled with chronic medical renal disease. Nephrology is following. Continue to hold nephrotoxic medications. 4. Chronic anemia The patient has baseline chronic anemia. In his setting of coronary artery disease, the patient was transfused packed red blood cells. At the current time, there are no signs of overt blood loss. There is no indication for transfusion of additional blood products. 5. Obstructive sleep apnea Continue nocturnal Pap therapy. Given the patient's weight gain over the last year, he may require a re-titration study and subsequent increase in his pressure support. This can be completed on an outpatient basis. 6. Diabetes mellitus/hypertension/hyperlipidemia/anxiety/depression/CODE STATUS Complicates care, management, recovery and prognosis. I personally discussed CODE STATUS with the patient at the bedside who indicated that he would not want to have chest compressions or be intubated and placed on a ventilator. CODE STATUS DNR CCA. This note was generated with [employer] dictation software. It may contain incorrect words, spelling, and punctuation that were not noted in checking the note before signing. Code Visit Inpatient E&M: 78531 [facility] L3
--- NOTE | 2018-12-14 07:36 | CT_ITS ---
STUDY: CT CHEST WITHOUT CONTRAST REASON FOR EXAM: Male, 68 years old. Respiratory failure RADIATION DOSAGE (If Supplied By Facility): CTDIvol = ( 20.15 ) mGy, DLP = ( 740.12 ) mGycm TECHNIQUE: Transaxial imaging was performed without the administration of intravenous contrast material. Multiplanar coronal and sagittal images were reformatted. Individualized dose optimization techniques were used for this CT. COMPARISON: December 12, 2018 chest x-ray, August 06, [address] scan abdomen FINDINGS: There are bilateral dense groundglass opacities/consolidation in a perihilar distribution relatively sparing the lung periphery. There are [id number] bilateral pleural effusions. There is mild cardiac enlargement sternotomy wires are seen midline. There are coronary calcifications. There are multiple reactive appearing lymph nodes within the mediastinum on the right side measuring 2.9 x 1.8 cm adjacent to the trachea. There are multiple smaller lymph nodes demonstrated. There is a lymph node adjacent to the aorta measuring 2.1 cm. There is subcarinal lymphadenopathy measuring 2.2 cm. There is at least one fat filled lymph node that measures 1.7 cm. A fatty lymph node is most often associated with benignity. Normal hilar regions. Normal unenhanced pulmonary arteries. There is atherosclerotic tortuosity of the aortic arch and descending thoracic aorta. There is demineralization of the thoracic spine. The liver is enlarged. The spleen measures 16 x [address]/Chest without Contrast IMPRESSION: Status post sternotomy mild cardiomegaly coronary artery disease. There is a perihilar pattern of groundglass opacities now some with consolidation with bilateral effusions. Findings are suspicious for pulmonary edema which may be cardiogenic. The differential includes diffuse pneumonia potentially hemorrhage in the appropriate clinical setting. There is reactive appearing lymphadenopathy and several reactive or potentially pathologic right paratracheal lymph nodes. Hepatosplenomegaly. The spleen measures 16 x 10 x 12.4 cm. Electronically Signed: Latia Alejandra MD at 9:20 EDT Tel , Service support ,
[2018-12-14] MEDS: amLODIPine 10 MG Tablet PO (10:48)
[2018-12-14] MEDS: Metoprolol Tartrate 50 MG Tablet PO (10:48)
[2018-12-14] MEDS: FLUoxetine 10 MG Capsule 40 MG PO (10:48)
[2018-12-14] MEDS: Ranolazine 500 MG Tablet 1000 MG PO (10:49)
[2018-12-14] MEDS: Allopurinol 100 MG Tablet PO (10:49)
[2018-12-14 11:07] LABS: Mucous, Urine 0 SEEN /hpf (<or=2+); Red Blood Cells-Urine 0 SEEN /hpf (0-5); Squamous Epithelial Cells - UA 0 SEEN /hpf (0-5); White Blood Cells 0 SEEN /hpf (0-5)
[2018-12-14 11:12] LABS: Color, Urine Yellow (Yellow); Glucose, Dipstick 50 mg/dl (Normal); Ketone-Dipstick Negative (Negative); Leukocyte Esterase-Dipstick Negative /ul (Negative); Nitrite-Dipstick Negative (Negative); Occult Blood-Urine Negative /ul (Negative); Protein-Dipstick 500 mg/dl (Negative); Urine Bilirubin Dipstick Negative (Negative); Urine Clarity Cloudy (Clear); Urine Urobilinogen Normal (Normal)
[2018-12-14] MEDS: Ferrous Sulfate 325 MG Tablet PO (11:15)
[2018-12-14 11:21] LABS: Amorphous Sediment 3+; Bacteria RARE /hpf (None Seen); Coarse Granular Cast 0-5 SEEN /lpf (0-5 /lpf); Fine Granular Cast- Urine 0-5 SEEN /lpf (0-5)
[2018-12-14 12:26] LABS: Bedside Glucose 122 mg/dL (70-110)
[2018-12-14 13:06] LABS: Bedside Glucose 61 mg/dL (70-110)
--- NOTE | 2018-12-14 13:42 | PCM.PROGNOTE ---
Patient Problems: Active and Suspected Problems (Last Reviewed 11/05/18 @ 10:26 by Pili May) Nephrotic range proteinuria (Acute) Chest pain (Acute) EDGARDO (acute kidney injury) (Acute) Subjective: Patient seen and examined. Respiratory status worsening. On BiPAP continuously, only able to tolerate very small breaks and BiPAP therapy. Patient denies hemoptysis. - Physical Exam General: Alert, Oriented x3, - - Significant respiratory distress HEENT: Atraumatic, PERRLA, EOMI, Normocephalic Neck: Supple, No JVD, Negative Carotid Bruits Lungs: Diminished, Tachypneic, - - Scattered crackles throughout Cardiovascular: Regular rate, Regular Rhythm, Normal S1, Normal S2, Murmur Abdomen: Bowel Sounds Present, Soft, Non Tender, Non-Distended, Obese Extremities: No clubbing, No cyanosis, Edema - BLLE, griffin wraps in place Musculoskeletal: No Tenderness to Palpation of Joints or Extremities Neurological: Cranial nerves II-XII grossly intact, Neuro grossly intact Psych/Mental Status: Anxious Vital Signs Temp Pulse Resp BP Pulse Ox 97.8 F 74 28 H 138/71 H 94 12/14/18 11:08 12/14/18 12:49 12/14/18 12:49 12/14/18 11:08 12/14/18 12:49 Oxygen Flow Rate (L/min) 5 Oxygen Delivery Method Bi-pap Weight: 275 lb 2.19 oz Body Mass Index (BMI) 39.4 Finger Stick Blood Glucose 269 Intake and Output for Last 24 Hours 12/12/18 12/13/18 12/14/18 23:59 23:59 23:59 Intake Total 2370 / 2370 1100.0 / 1100.0 630 / 630 Output Total 2100 / 2100 900 / 900 1250 / 1250 Balance 270 / 270 200.0 / 200.0 -620 / -620 Microbiology Past 72 Hours 12/12/18 13:54 Gram Stain - Final Sputum, Expectorated/Coughed Respiratory Culture - Preliminary Appears to be normal respiratory devon. Further studies to follow. 12/13/18 09:50 Stool Occult Blood (JOSE RAMON) - Final Stool Occult Blood Positive 12/11/18 15:20 Urine Culture - Final Urine, Clean Catch Mixed Gram Positive Organisms 12/11/18 20:20 Respiratory Panel (PCR) - Final Mucosa - Nose 12/11/18 15:20 Streptococcus pneumoniae Antigen (M - Final Urine, Clean Catch 12/11/18 15:20 Legionella Antigen - Final Urine, Clean Catch Laboratory Tests Past 24 Hrs 12/12/18 12/14/18 12/14/18 13:30 05:18 05:18 WBC 11.0 RBC 3.59 L Hgb 10.2 L Hct 32.5 L MCV 90.5 MCH 28.4 MCHC 31.4 L RDW Std Deviation 47.2 H RDW Coeff of Judi 14.2 Plt Count 314 MPV 9.8 Sodium 140 Potassium 4.2 Chloride 106 Carbon Dioxide 25.0 Anion Gap 9 BUN 80 H Creatinine 5.30 H Estim Creat Clear Calc 13.52 Est GFR (MDRD) Af Amer 14 L Est GFR (MDRD) Non-Af 12 L BUN/Creatinine Ratio 15.1 Glucose 57 L Calcium 8.2 L Urine Color Urine Clarity Urine pH Ur Specific [place] Urine Protein Urine Glucose (UA) Urine Ketones Urine Occult Blood Urine Nitrite Urine Bilirubin Urine Urobilinogen Ur Leukocyte Esterase Urine RBC Urine WBC Ur Squamous Epith Cells Amorphous Sediment Urine Bacteria Fine Granular Casts Coarse Granular Casts Urine Mucus Blood Type B POSITIVE Antibody Screen NEGATIVE Crossmatch See Detail 12/14/18 10:00 WBC RBC Hgb Hct MCV MCH MCHC RDW Std Deviation RDW Coeff of Judi Plt Count MPV Sodium Potassium Chloride Carbon Dioxide Anion Gap BUN Creatinine Estim Creat Clear Calc Est GFR (MDRD) Af Amer Est GFR (MDRD) Non-Af BUN/Creatinine Ratio Glucose Calcium Urine Color Yellow Urine Clarity Cloudy Urine pH 5.0 Ur Specific [place] 1.020 Urine Protein 500 H Urine Glucose (UA) 50 H Urine Ketones Negative Urine Occult Blood Negative Urine Nitrite Negative Urine Bilirubin Negative Urine Urobilinogen Normal Ur Leukocyte Esterase Negative Urine RBC 0 SEEN Urine WBC 0 SEEN Ur Squamous Epith Cells 0 SEEN Amorphous Sediment 3+ Urine Bacteria RARE Fine Granular Casts 0-5 SEEN Coarse Granular Casts 0-5 SEEN Urine Mucus 0 SEEN Blood Type Antibody Screen Crossmatch POC Glucose 12/14/18 12/14/18 12/13/18 11:13 08:08 22:18 POC Glucose 122 H 61 L 80 12/13/18 12/13/18 17:53 12:36 POC Glucose 57 L 146 H Medical Necessity - Tobacco Use Smoking Status: Former smoker Tobacco Use: Non-smoker Assessment/Plan All Active Problems (Last Reviewed 11/05/18 @ 10:26 by Pili May) Nephrotic range proteinuria (Acute) CHF exacerbation (Acute) Chest pain (Acute) EDGARDO (acute kidney injury) (Acute) Choledocholithiasis with acute cholecystitis (Acute) Abnormal LFTs (Acute) 1. Acute hypoxic respiratory failure secondary to multilobar pneumonia-Pulmonary medicine consulted. Continue supplement oxygen to maintain O2 at or above 90%, continue BIPAP therapy. IV Zosyn. Urine for strep and Legionella negative. Respiratory panel negative. Sputum culture shows normal respiratory devon. Given no improvement on 48 hours antibiotic therapy, CT obtained which demonstrated bilateral effusions, diffuse pneumonia. Patient now agreeable to intubation. Transfer to ICU for worsening respiratory status, anticipate need for intubation. Begin IV steroids. 2. Chronic diastolic CHF, acute CHF ruled out-BNP 459, patient with CKD stage IV. Recent stress test June 2017 with LVEF 53%. IV Lasix discontinued. Griffin wraps bilateral lower extremities. Repeat echocardiogram demonstrates an EF of 65%, moderate to severe . Hold home diuretic regimen given worsening renal function. 3. Chest pain-EKG without ST-T changes. Troponin negative. Cardiology consulted for further cardiac evaluation. Known CAD with known occluded SVG to first diagonal and occluded SVG to first OM. Patient started on Ranexa by cardiology. Possible consideration for cardiac catheterization in the future when medically stable. 4. Acute kidney injury on chronic kidney disease stage IV-worsening creatinine. Renal ultrasound shows bilateral renal cyst. Nephrology consulted. FENa 4%. 5. Nonrheumatic aortic valve stenosis-repeat echocardiogram as noted above. 6. CAD with history of PCI and CABG x3-follows with Dr. Green. Continue aspirin, metoprolol regimen. 7. Type 2 diabetes [id number] AC at bedtime with sliding scale insulin. Continue home long-acting regimen. Hemoglobin A1c 9.1%. 8. Hypertension-stable, continue home amlodipine, metoprolol, isosorbide regimen. 9. Hyperlipidemia-continue home fenofibrate regimen. 10. Chronic COPD-no acute exacerbation. As needed albuterol aerosol. 11. Acute on Chronic normocytic anemia-status post 2 unit PRBC. Stool positive for occult blood. Iron studies show iron deficiency. PPI and iron supplementation added. 12. Obesity-diet and lifestyle modifications encouraged. 13. Anxiety/depression-continue home fluoxetine regimen. 14. DASHA-continue CPAP nightly. DVT prophylaxis- heparin sc This patient was seen by SIGIFREDO Tong under the supervision of Dr. Escobar.
[2018-12-14 13:51] LABS: Bedside Glucose 104 mg/dL (70-110)
--- NOTE | 2018-12-14 14:00 | NURSING ---
at bedside and is aware that patient is being transferred to the ICU for intubation.
--- NOTE | 2018-12-14 14:11 | NURSING ---
Report called to MARCO A Melvin in ICU
[2018-12-14] MEDS: Aspirin E.C. 81 MG Tablet PO (14:13)
[2018-12-14] MEDS: MethylPREDNISolone 125 MG/2 ML Vial IV (15:06)
[2018-12-14] MEDS: Etomidate 20 MG/10 ML Vial IV (15:52)
--- NOTE | 2018-12-14 15:52 | NURSING ---
1552 20 mg etomidate given per Dr. Escobar for intubation 1553 100 mg propofol given 1554 50 mcg fentanyl given 1555 Bagging, SPO2 89% attempt #[address] Escobar to intubate, unsuccessful 1557 Attempt #2 w/ glydescope 1558 Pt intubated w/ + color change and bilateral breath sounds #7.5 ETT 26 cm @ lip 1600 Continuous sedation started
[2018-12-14] MEDS: Propofol 200 MG/20 ML Vial 100 MG IV BOLUS (15:53)
[2018-12-14] MEDS: fentaNYL 100 MCG/2 ML Ampul 50 MCG IV (15:54)
[2018-12-14 15:56] LABS: Allen Test POS; Base Excess -5 mmol/L (-2 to +2); Bicarbonate 19.7 mmol/L (22-26); Blood Gas Specimen Type ART; EPAP 5; FI02 45; PO2 66 mmHG (75-100); RR 14; SITE R Radial; SO2 93 % (95-99); Time Given 1540; Total Carbon Dioxide 21 mmol/L; pCO2 31.5 mmHg (35-45)
[2018-12-14] MEDS: Propofol 10MG/Ml 1,000 MG/100 ML Bottle 7.5 MG CONT INF (16:00)
[2018-12-14] MEDS: fentaNYL drip 100 ML 10 MCG IV (16:00)
--- NOTE | 2018-12-14 16:15 | RAD_ITS ---
STUDY: X-RAY CHEST REASON FOR EXAM: Male, 68 years old. Endotracheal and orogastric tube insertion TECHNIQUE: AP COMPARISON: 12/12/2018 FINDINGS: Endotracheal tube identified with tip terminating 2 cm above the franchesca. Enteric tube extends the medial upper left abdomen with side port likely at the GE junction level. Recommend advancing 5 cm. Worsening bilateral airspace consolidation with relative sparing along the periphery and in the right more than left lung base. No sizable effusion or pneumothorax. There is moderate cardiac enlargement. EKG leads project over the chest. Sternal wires and mediastinal surgical clips compatible with prior CABG. Normal mediastinum and ursula. Normal visualized pulmonary arteries. Normal visualized aortic arch and descending thoracic aorta. No acute bony process. There is no demonstrated abnormality of the visualized soft tissue structures of the upper abdomen. RAD/Chest 1 View (Portable) IMPRESSION: 1. Endotracheal tube with tip terminating 2 cm above the franchesca. 2. Enteric tube terminates in the medial upper stomach with side-port likely at the GE junction. Recommend advancing 5 cm. 3. Worse bilateral airspace disease could represent pneumonia, pulmonary edema or ARDS. Electronically Signed: Duc Gomez MD ([place]) at 16:40 EDT , Service support ,
--- NOTE | 2018-12-14 16:58 | PCM.PN.CARD ---
Subjectve: Patient is intubated and sedated. Objective: Vital Signs Temp Pulse Resp BP Pulse Ox 97.8 F 62 18 151/72 H 93 12/14/18 14:32 12/14/18 16:46 12/14/18 16:46 12/14/18 16:00 12/14/18 16:46 Oxygen Flow Rate (L/min) 5 Oxygen Delivery Method Mechanical Ventilator Weight: 275 lb 2.19 oz Body Mass Index (BMI) 39.4 Finger Stick Blood Glucose 269 Intake and Output for Last 24 Hours 12/12/18 12/13/18 12/14/18 23:59 23:59 23:59 Intake Total 2370 / 2370 1100.0 / 1100.0 630 / 630 Output Total 2100 / 2100 900 / 900 1250 / 1250 Balance 270 / 270 200.0 / 200.0 -620 / -620 HEENT: Atraumatic Lungs: Clear to auscultation Cardiovascular: Normal S1, Normal S2 Abdomen: Soft Extremities: Trace RLE Edema, Trace LLE Edema Skin: No Rashes 12/14/18 05:18: WBC 11.0, RBC 3.59 L, Hgb 10.2 L, Hct 32.5 L, MCV 90.5, MCH 28.4, MCHC 31.4 L, Plt Count 314, MPV 9.8 12/14/18 05:18: Sodium 140, Potassium 4.2, Chloride 106, Carbon Dioxide 25.0, Anion Gap 9, BUN 80 H, Creatinine 5.30 H, Est GFR (MDRD) Af Amer 14 L, Est GFR (MDRD) Non-Af 12 L, BUN/Creatinine Ratio 15.1, Glucose 57 L, Calcium 8.2 L 12/14/18 10:00: Urine Color Yellow, Urine Clarity Cloudy, Urine pH 5.0, Ur Specific [place] 1.020, Urine Protein 500 H, Urine Glucose (UA) 50 H, Urine Ketones Negative, Urine Occult Blood Negative, Urine Nitrite Negative, Urine Bilirubin Negative, Urine Urobilinogen Normal, Ur Leukocyte Esterase Negative, Urine RBC 0 SEEN, Urine WBC 0 SEEN 12/14/18 15:49: pH 7.40, Bicarbonate Actual 19.7 L, POC Total CO2 21, Base Excess -5 L, O2 Saturation 93 L, ABG pCO2 31.5 L, ABG pO2 66 L, Martell Test POS Rhythm: EKG: ECHO: Stress Test: Cardiac Cath: PCI: CT Surgery: Holter monitor: EPS: PPM: CXR: Chest CT Scan: Medical Necessity - Tobacco Use Smoking Status: Former smoker Tobacco Use: Non-smoker Assessment/Plan 1. Chest pain: This appears to have resolved at this time. Appears to have been noncardiac. 2. CHF: Patient is compensated from a cardiac standpoint. He is not volume overloaded. At this time patient's cardiac issues appear to be stable. We will sign off at this time. If we can be of any further assistance please let us know.
--- NOTE | 2018-12-14 17:04 | NURSING ---
OG advanced laron 5cm per Dr Escobar order
[2018-12-14 17:05] LABS: Allen Test POS; Base Excess -5 mmol/L (-2 to +2); Bicarbonate 21.9 mmol/L (22-26); Blood Gas Specimen Type ART; FI02 100; Mode A-C; O2 Delivery Device Vent; PEEP 8; PO2 80 mmHG (75-100); SITE L Radial; SO2 94 % (95-99); Time Given 1700; Total Carbon Dioxide 23 mmol/L; pCO2 46.8 mmHg (35-45); pH 7.28 (7.35-7.45)
[2018-12-14 17:10] LABS: CPK Total, Creatine Kinase 351 U/L (39-308); Triglycerides 155 mg/dL
[2018-12-14] MEDS: TITRATION PARAMETER CHANGE 1 EACH IV ×5 (17:15→22:24)
[2018-12-14] MEDS: 0.9% Normal Saline 1,000 ML 80 ML IV (17:25)
[2018-12-14 17:34] LABS: International Normalized Ratio 1.4; Partial Thromboplast Time 37.2 Seconds (24.1-36.2); Prothrombin Time (Protime)PT. 17.1 SECONDS (11.7-14.9)
--- NOTE | 2018-12-14 17:34 | CPS ---
This [employer] TECHNICIAN called Dr. Reid at 1705 with concerns about patient ventilation. Order from Dr Reid to increase VT 550, peak flow 70.
[2018-12-14 17:35] LABS: Bedside Glucose 105 mg/dL (70-110)
[2018-12-14] MEDS: LORazepam 2 MG/ML Syringe IV (17:55)
[2018-12-14] MEDS: Propofol 10MG/Ml 1,000 MG/100 ML Bottle 37.4 MG CONT INF ×3 (17:57→23:34)
--- NOTE | 2018-12-14 18:05 | NURSING ---
pt's necklace given to Trixie
--- NOTE | 2018-12-14 18:32 | PCM.PN.REN ---
Patient Problems: Active and Suspected Problems (Last Reviewed 11/05/18 @ 10:26 by Pili May) Nephrotic range proteinuria (Acute) Chest pain (Acute) EDGARDO (acute kidney injury) (Acute) Subjective: Following for EDGARDO on CKD. Pt is now intubated in ICU. Cannot do ROS. Events of today discussed with Dr. Muñoz. - Physical Exam General: - - Sedated HEENT: Atraumatic, Normocephalic Oral: - - Intubated Neck: Trachea Midline Lungs: Diminished, Using Accessory Muscles Cardiovascular: Normal S1, Normal S2, No murmurs Abdomen: Bowel Sounds Present, Non Tender, Distended, Obese Extremities: Edema - 2+ LE Vital Signs Temp Pulse Resp BP Pulse Ox 97.8 F 67 19 H 151/72 H 92 12/14/18 14:32 12/14/18 17:05 12/14/18 17:05 12/14/18 16:00 12/14/18 17:05 Oxygen Flow Rate (L/min) 5 Oxygen Delivery Method Mechanical Ventilator Weight: 124.8 kg Body Mass Index (BMI) 39.4 Finger Stick Blood Glucose 269 Intake and Output for Last 24 Hours 12/12/18 12/13/18 12/14/18 23:59 23:59 23:59 Intake Total 2370 / 2370 1100.0 / 1100.0 726.79 / 726.79 Output Total 2100 / 2100 900 / 900 1700 / 1700 Balance 270 / 270 200.0 / 200.0 -973.21 / -973.21 Microbiology Past 72 Hours 12/12/18 13:54 Gram Stain - Final Sputum, Expectorated/Coughed Respiratory Culture - Preliminary Appears to be normal respiratory devon. Further studies to follow. 12/13/18 09:50 Stool Occult Blood (JOSE RAMON) - Final Stool Occult Blood Positive 12/11/18 15:20 Urine Culture - Final Urine, Clean Catch Mixed Gram Positive Organisms 12/11/18 20:20 Respiratory Panel (PCR) - Final Mucosa - Nose 12/11/18 15:20 Streptococcus pneumoniae Antigen (M - Final Urine, Clean Catch 12/11/18 15:20 Legionella Antigen - Final Urine, Clean Catch Laboratory Tests Past 24 Hrs 12/12/18 12/14/18 12/14/18 13:30 05:18 05:18 WBC 11.0 RBC 3.59 L Hgb 10.2 L Hct 32.5 L MCV 90.5 MCH 28.4 MCHC 31.4 L RDW Std Deviation 47.2 H RDW Coeff of Judi 14.2 Plt Count 314 MPV 9.8 PT INR APTT Specimen Type Sample Site pH Bicarbonate Actual POC Total CO2 Base Excess O2 Saturation O2 % ABG pCO2 ABG pO2 Martell Test Respiration Rate O2 Delivery Device Vent Mode POC PEEP EPAP Blood Gas Notified Whom Blood Gas Notified Time Sodium 140 Potassium 4.2 Chloride 106 Carbon Dioxide 25.0 Anion Gap 9 BUN 80 H Creatinine 5.30 H Estim Creat Clear Calc 13.52 Est GFR (MDRD) Af Amer 14 L Est GFR (MDRD) Non-Af 12 L BUN/Creatinine Ratio 15.1 Glucose 57 L Calcium 8.2 L Total Creatine Kinase Triglycerides Urine Color Urine Clarity Urine pH Ur Specific [place] Urine Protein Urine Glucose (UA) Urine Ketones Urine Occult Blood Urine Nitrite Urine Bilirubin Urine Urobilinogen Ur Leukocyte Esterase Urine RBC Urine WBC Ur Squamous Epith Cells Amorphous Sediment Urine Bacteria Fine Granular Casts Coarse Granular Casts Urine Mucus Blood Type B POSITIVE Antibody Screen NEGATIVE Crossmatch See Detail 12/14/18 12/14/18 12/14/18 05:18 10:00 15:49 WBC RBC Hgb Hct MCV MCH MCHC RDW Std Deviation RDW Coeff of Judi Plt Count MPV PT INR APTT Specimen Type ART Sample Site R Radial pH 7.40 Bicarbonate Actual 19.7 L POC Total CO2 21 Base Excess -5 L O2 Saturation 93 L O2 % 45 ABG pCO2 31.5 L ABG pO2 66 L Martell Test POS Respiration Rate 14 O2 Delivery Device Bi / C PAP Vent Mode POC PEEP EPAP 5 Blood Gas Notified Whom ICU MD Blood Gas Notified Time 1540 Sodium Potassium Chloride Carbon Dioxide Anion Gap BUN Creatinine Estim Creat Clear Calc Est GFR (MDRD) Af Amer Est GFR (MDRD) Non-Af BUN/Creatinine Ratio Glucose Calcium Total Creatine Kinase 351 H Triglycerides 155 Urine Color Yellow Urine Clarity Cloudy Urine pH 5.0 Ur Specific [place] 1.020 Urine Protein 500 H Urine Glucose (UA) 50 H Urine Ketones Negative Urine Occult Blood Negative Urine Nitrite Negative Urine Bilirubin Negative Urine Urobilinogen Normal Ur Leukocyte Esterase Negative Urine RBC 0 SEEN Urine WBC 0 SEEN Ur Squamous Epith Cells 0 SEEN Amorphous Sediment 3+ Urine Bacteria RARE Fine Granular Casts 0-5 SEEN Coarse Granular Casts 0-5 SEEN Urine Mucus 0 SEEN Blood Type Antibody Screen Crossmatch 12/14/18 12/14/18 16:55 17:01 WBC RBC Hgb Hct MCV MCH MCHC RDW Std Deviation RDW Coeff of Judi Plt Count MPV PT 17.1 H INR 1.4 APTT 37.2 H Specimen Type ART Sample Site L Radial pH 7.28 L Bicarbonate Actual 21.9 L POC Total CO2 23 Base Excess -5 L O2 Saturation 94 L O2 % 100 ABG pCO2 46.8 H ABG pO2 80 Martell Test POS Respiration Rate O2 Delivery Device Vent Vent Mode A-C POC PEEP 8 EPAP Blood Gas Notified Whom HOSP Blood Gas Notified Time 1700 Sodium Potassium Chloride Carbon Dioxide Anion Gap BUN Creatinine Estim Creat Clear Calc Est GFR (MDRD) Af Amer Est GFR (MDRD) Non-Af BUN/Creatinine Ratio Glucose Calcium Total Creatine Kinase Triglycerides Urine Color Urine Clarity Urine pH Ur Specific [place] Urine Protein Urine Glucose (UA) Urine Ketones Urine Occult Blood Urine Nitrite Urine Bilirubin Urine Urobilinogen Ur Leukocyte Esterase Urine RBC Urine WBC Ur Squamous Epith Cells Amorphous Sediment Urine Bacteria Fine Granular Casts Coarse Granular Casts Urine Mucus Blood Type Antibody Screen Crossmatch POC Glucose 12/14/18 12/14/18 12/14/18 17:24 13:47 11:13 POC Glucose 105 104 122 H 12/14/18 12/13/18 12/13/18 08:08 22:18 17:53 POC Glucose 61 L 80 57 L Medical Necessity - Tobacco Use Smoking Status: Former smoker Tobacco Use: Non-smoker Assessment/Plan All Active Problems (Last Reviewed 11/05/18 @ 10:26 by Pili May) Nephrotic range proteinuria (Acute) CHF exacerbation (Acute) Chest pain (Acute) EDGARDO (acute kidney injury) (Acute) Choledocholithiasis with acute cholecystitis (Acute) Abnormal LFTs (Acute) 1- EDGARDO on CKD stage 4. Baseline Cr ~ 2.6-2.7 mg/dL when last seen by Dr. Rodrigez. Had UPCR of 11 g/g ini October, likely due to diabetic nephropathy. Renal function has been deteriorating over the past year. Suspect what we are seeing is progressive deterioration of renal function leading to volume OL/HF (type 4 CRS). Lasix on hold because of rising SCr. Interestingly, weight has been going up despite diuresis. Despite holding Lasix, SCr is worse. Will likely need dialysis tomorrow. I expect renal function will not get better soon. I did discuss the possibility of dialysis with the patient yesterday. No urgent need for HD tonight. OK to give Lasix if needed tonight. Recheck SCr again in am. 2- HTN. BP is well controlled. BP target < 130/80. Continue current antihypertensive. 3- Nephrotic range proteinuria with low serum albumin. Highly suspect that the pt has diabetic nephropathy given the history of poorly controlled blood sugar (HgbA1C 9.1%). UA did not show RBC. Doubt a kidney biopsy would change our treatment at this point. 4- Acute hypoxic respiratory failure. HF vs pneumonia. Suspect there may components of both. Suspecting pneumonia now since respiratory symptom has not improved much with diuresis. Situation complicated by rising SCr during diuresis. Pt is now intubated. On Zosyn. Lasix is on hold. However, OK to restart Lasix if needed from my standpoint.
--- NOTE | 2018-12-14 19:41 | RAD_ITS ---
HISTORY:Abdominal Distention Abdominal Distention EXAMINATION/TECHNIQUE: XR Abdomen 1 View: COMPARISON: None FINDINGS: Limited study due to motion of the patient's body habitus LINES AND TUBES: NG tube with the tip in the stomach BOWEL GAS PATTERN: Non-obstructive. No bowel or stomach distention. FREE AIR: Not assessed on a single supine view. ORGANOMEGALY: Not seen. CALCIFICATIONS: No abnormal calcifications observed. LOWER CHEST: No acute pathology. BONES AND SOFT TISSUES: No acute pathology. RAD/Abdomen Single View (Portable) IMPRESSION: Limited study due to patient's body habitus and motion Non-obstructive bowel gas pattern. NG tube with the tip in the stomach at 2055 Reported and signed by: Latia Mathews DO Electronically Signed: Latia Mathews DO at 20:54 EDT Tel , Service support ,
[2018-12-14 20:26] LABS: Base Excess -5 mmol/L (-2 to +2); Bicarbonate 23.1 mmol/L (22-26); Blood Gas Specimen Type ART; FI02 80; Mode PCV; O2 Delivery Device Vent; PEEP 8; PO2 122 mmHG (75-100); RR 14; SITE L Radial; SO2 97 % (95-99); Time Given 2012; Total Carbon Dioxide 25 mmol/L; pCO2 63.8 mmHg (35-45); pH 7.17 (7.35-7.45)
[2018-12-14] MEDS: CISATRACURIUM 2 MG/ML 25 MG IV (20:28)
[2018-12-14] MEDS: fentaNYL drip 100 ML 20 MCG IV (20:29)
[2018-12-14] MEDS: Chlorhexidine 15 ML PO (22:26)
[2018-12-14] MEDS: Heparin Injection (Vial) 5,000 UNIT/ML VIAL 5000 UNIT SC (22:32)
[2018-12-14 23:30] LABS: Base Excess -9 mmol/L (-2 to +2); Blood Gas Specimen Type ART; FI02 90; Mode A-C; O2 Delivery Device Vent; PEEP 8; PO2 89 mmHG (75-100); RR 14; SITE L Radial; SO2 95 % (95-99); Time Given 2318; Total Carbon Dioxide 20 mmol/L; Vt 550; pCO2 47.5 mmHg (35-45); pH 7.21 (7.35-7.45)
[2018-12-14] MEDS: Insulin Lispro 100 UNIT/ML INSULN.PEN SC (23:39)
[2018-12-15] VITALS (45 sets, daily range): BP systolic 98–126; BP diastolic 50–70; PULSE 49–81; RESP 14–20; TEMP 36.1–36.7; O2SAT 89–98
--- NOTE | 2018-12-15 00:32 | CPS ---
Critical ABG results read back to Dr. Escobar
[2018-12-15 00:41] LABS: Bedside Glucose 174 mg/dL (70-110)
[2018-12-15 01:07] LABS: Lactic Acid 0.8 mmol/L (0.4-2.0)
[2018-12-15] MEDS: fentaNYL drip 100 ML 20 MCG IV ×3 (01:37→11:45)
[2018-12-15] MEDS: Propofol 10MG/Ml 1,000 MG/100 ML Bottle 37.4 MG CONT INF ×4 (01:59→10:08)
[2018-12-15 02:54] LABS: M R Staph aureus DNA By PCR Negative (Negative); Probe Check PASS; Specimen Processing Control PASS
[2018-12-15] MEDS: 0.9% NaCl IVPB Med Flush (250 mL) 15 ML IV ×2 (03:20→21:53)
[2018-12-15 04:13] LABS: Hematocrit 30.7 % (40-54); Hemoglobin 9.3 g/dL (13.0-16.5); Mean Corp Hgb Conc 30.3 g/dL (32-36); Mean Corpuscular Hgb 28.7 pg (27.0-32.0); Mean Corpuscular Volume 94.8 fL (80-94); Mean Platelet Vol. 9.9 fl (6.2-12.0); Platelet Count 283 K/mm3 (150-450); RBC Distribution Width CV 14.4 % (11.6-14.6); RBC Distribution Width SD 50.5 fl (35.1-43.9); Red Blood Count 3.24 M/mm3 (4.6-6.2); White Blood Count 11.2 K/mm3 (4.4-11.0)
[2018-12-15 04:40] LABS: ALB/GLOB Ratio 0.4 RATIO (0.9-2.4); AST(SGOT) 41 U/L (15-37); Alanine Aminotransfer ALT/SGPT 53 U/L (16-61); Alkaline Phosphatase 66 U/L (45-117); Anion Gap 17 (5-15); BUN 95 mg/dL (7-18); BUN/Creat Ratio 14.4 RATIO (10-20); Calcium,Total 7.8 mg/dL (8.5-10.1); Chloride 106 mmol/L (98-107); Creatinine, Serum 6.59 mg/dL (0.70-1.30); EST Glomerular Filtration Rate 9 mL/min (>60); Est Glom Filt Rate - Afr Amer 11 mL/min (>60); Estimated Creatinine Clearance 10.88 ml/min; Globulin 4.5 g/dL (2.2-4.2); Glucose 201 mg/dL (74-106); Magnesium 2.8 mg/dL (1.6-2.6); Potassium 6.2 mmol/L (3.5-5.1); Protein, Total 6.5 g/dL (6.4-8.2); Sodium Level 141 mmol/L (136-145)
[2018-12-15] MEDS: Insulin Lispro 100 UNIT/ML INSULN.PEN SC ×4 (05:40→23:53)
[2018-12-15 06:06] LABS: Bedside Glucose 204 mg/dL (70-110)
[2018-12-15] MEDS: Ipratropium/Albuterol Sulfate 3 ML AMPUL.NEB INHALATION ×3 (06:59→18:35)
--- NOTE | 2018-12-15 07:33 | PCM.PN.HOSP ---
Patient Problems: Active and Suspected Problems (Last Reviewed 11/05/18 @ 10:26 by Pili May) Nephrotic range proteinuria (Acute) Chest pain (Acute) EDGARDO (acute kidney injury) (Acute) Subjective: Patient was seen and examined. He remains intubated. He was intubated on 12/14/18. Overnight, patient's sedated. He was started transiently on paralytics which has since been switched off. Right-sided tunneled dialysis catheter was put in this morning. Will be getting dialysis this morning Vitals/I&O's: Vital Signs Temp Pulse Resp BP Pulse Ox 97.4 F L 55 L 14 105/54 L 90 12/15/18 05:00 12/15/18 06:00 12/15/18 06:00 12/15/18 06:00 12/15/18 06:00 Oxygen Flow Rate (L/min) 5 Oxygen Delivery Method Mechanical Ventilator Weight: 125.7 kg Body Mass Index (BMI) 39.4 Finger Stick Blood Glucose 269 Intake and Output for Last 24 Hours 12/13/18 12/14/18 12/15/18 23:59 23:59 23:59 Intake Total 1100.0 / 1100.0 1554.53 / 1554.53 540.38 / 540.38 Output Total 900 / 900 1700 / 1820 140 / 140 Balance 200.0 / 200.0 -145.47 / -265.47 400.38 / 400.38 General: - - Intubated, sedated, on propofol and fentanyl, on mechanical ventilator, PEEP of 10, obese HEENT: Atraumatic, PERRLA Oral: Moist Mucosa Neck: Supple Lungs: Clear to auscultation, Normal air movement Cardiovascular: Regular rate, Regular Rhythm, Normal S1, Normal S2, No murmurs Abdomen: Bowel Sounds Present, Soft, Non Tender, Non-Distended, No Hepato-splenomegaly, Obese Extremities: Edema - +1 bipedal edema Skin: No rashes, No breakdown Musculoskeletal: No Tenderness to Palpation of Joints or Extremities Lymphatic: No Cervical, Supraclavicular, or Inguinal Adenopathy Neurological: Cranial nerves II-XII grossly intact, Neuro grossly intact Psych/Mental Status: Normal Affect, Appropriate Microbiology Past 72 Hours 12/12/18 13:54 Sputum, Expectorated/Coughed Gram Stain - Final 12/12/18 13:54 Sputum, Expectorated/Coughed Respiratory Culture - Preliminary Appears to be normal respiratory devon. Further studies to follow. 12/13/18 09:50 Stool Stool Occult Blood (JOSE RAMON) - Final Occult Blood Positive 12/11/18 15:20 Urine, Clean Catch Urine Culture - Final Mixed Gram Positive Organisms 12/11/18 20:20 Mucosa - Nose Respiratory Panel (PCR) - Final Laboratory Results 12/14/18 05:18: Total Creatine Kinase 351 H, Triglycerides 155 12/14/18 08:08: POC Glucose 61 L 12/14/18 10:00: Urine Color Yellow, Urine Clarity Cloudy, Urine pH 5.0, Ur Specific Fence 1.020, Urine Protein 500 H, Urine Glucose (UA) 50 H, Urine Ketones Negative, Urine Occult Blood Negative, Urine Nitrite Negative, Urine Bilirubin Negative, Urine Urobilinogen Normal, Ur Leukocyte Esterase Negative, Urine RBC 0 SEEN, Urine WBC 0 SEEN, Ur Squamous Epith Cells 0 SEEN, Amorphous Sediment 3+, Urine Bacteria RARE, Fine Granular Casts 0-5 SEEN, Coarse Granular Casts 0-5 SEEN, Urine Mucus 0 SEEN 12/14/18 11:13: POC Glucose 122 H 12/14/18 13:47: POC Glucose 104 12/14/18 15:49: Specimen Type ART, Sample Site R Radial, pH 7.40, Bicarbonate Actual 19.7 L, POC Total CO2 21, Base Excess -5 L, O2 Saturation 93 L, O2 % 45, ABG pCO2 31.5 L, ABG pO2 66 L, Martell Test POS, Respiration Rate 14, O2 Delivery Device Bi / C PAP, EPAP 5, Blood Gas Notified Whom ICU , Blood Gas Notified Time 15412/14/18 16:55: PT 17.1 H, INR 1.4, APTT 37.2 H 12/14/18 17:01: Specimen Type ART, Sample Site L Radial, pH 7.28 L, Bicarbonate Actual 21.9 L, POC Total CO2 23, Base Excess -5 L, O2 Saturation 94 L, O2 % 100, ABG pCO2 46.8 H, ABG pO2 80, Martell Test POS, O2 Delivery Device Vent, Vent Mode A-C, POC PEEP 8, Blood Gas Notified Whom HOSP , Blood Gas Notified Time 17012/14/18 17:24: POC Glucose 105 12/14/18 20:18: Specimen Type ART, Sample Site L Radial, pH 7.17 L*, Bicarbonate Actual 23.1, POC Total CO2 25, Base Excess -5 L, O2 Saturation 97, O2 % 80, ABG pCO2 63.8 H, ABG pO2 122 H, Respiration Rate 14, O2 Delivery Device Vent, Vent Mode PCV, POC PEEP 8, Blood Gas Notified Whom [facility] , Blood Gas Notified Time 201112/14/18 21:45: MRSA (PCR) Negative 12/14/18 23:26: Specimen Type ART, Sample Site L Radial, pH 7.21 L, Bicarbonate Actual 19.0 L, POC Total CO2 20, Base Excess -9 L, O2 Saturation 95, O2 % 90, ABG pCO2 47.5 H, ABG pO2 89, Respiration Rate 14, O2 Delivery Device Vent, Minute Volume 8.00, Vent Mode A-C, Tidal Volume 550, POC PEEP 8, Blood Gas Notified Whom [facility] , Blood Gas Notified Time 231712/14/18 23:37: POC Glucose 174 H 12/15/18 00:30: Lactic Acid 0.8 12/15/18 03:35: WBC 11.2 H, RBC 3.24 L, Hgb 9.3 L, Hct 30.7 L, MCV 94.8 H, MCH 28.7, MCHC 30.3 L, RDW Std Deviation 50.5 H, RDW Coeff of Judi 14.4, Plt Count 283, MPV 9.9 12/15/18 03:35: Sodium 141, Potassium 6.2 H*, Chloride 106, Carbon Dioxide 18.0 L, Anion Gap 17 H, BUN 95 H, Creatinine 6.59 H, Estim Creat Clear Calc 10.88, Est GFR (MDRD) Af Amer 11 L, Est GFR (MDRD) Non-Af 9 L, BUN/Creatinine Ratio 14.4, Glucose 201 H, Calcium 7.8 L, Phosphorus 9.0 H*, Magnesium 2.8 H, Total Bilirubin 1.10 H, AST 41 H, ALT 53, Alkaline Phosphatase 66, Total Protein 6.5, Albumin 2.0 L, Globulin 4.5 H, Albumin/Globulin Ratio 0.4 L 12/15/18 05:35: POC Glucose 204 H Current Medications Acetaminophen (Tylenol Liquid) 650 mg GT Q6H PRN PRN PRN Reason: Non-cardiac pain (mod-severe) Hydrocodone Bitart/Acetaminophen ([place] 5mg-325mg) 1 - 2 tablet GT Q6H PRN PRN PRN Reason: MOD-SEVERE PAIN (4-10/10) Al Hydroxide/Mg Hydroxide (Mylanta Ii) 15 - 30 ml GT Q4H PRN PRN PRN Reason: INDIGESTION Albuterol Sulfate (Ventolin Aerosols) 2.5 mg INHALATION Q2H PRN PRN PRN Reason: dyspnea, wheezing Albuterol/Ipratropium (Duoneb) 3 ml INHALATION Q6HWA.RT [facility] Last Admin: 12/15/18 06:59 Dose: 3 ml Documented by: Allopurinol (Zyloprim) 100 mg GT DAILY [facility] Amlodipine Besylate (Norvasc) 10 mg GT DAILY [facility] Aspirin (Aspirin, Baby) 81 mg GT DAILY@0800 [facility] Chlorhexidine Gluconate () 15 ml PO BID [facility] Last Admin: 12/14/18 22:26 Dose: 15 ml Documented by: Chlorhexidine Gluconate () 1 each TOPICAL DAILY [facility] Dextrose (D50w Syringe) 0 gm IV X1 PRN; Protocol PRN Reason: Hypoglycemia Fluoxetine HCl (Prozac) 40 mg GT DAILY [facility] Glucagon () 1 mg IM .X1 PRN PRN Reason: Hypoglycemia Heparin Sodium (Porcine) (Heparin Na) 5,000 unit SC Q12 [facility] Last Admin: 12/14/18 22:32 Dose: 5,000 unit Documented by: Hydralazine HCl (Apresoline Iv) 10 mg IV Q4H PRN PRN PRN Reason: SBP > 160 Sodium Chloride () 250 mls @ 15 mls/hr IV .[id number] PRN PRN Reason: SALINE FLUSH Piperacillin Sod/Tazobactam (Sod 3.375 gm/ Sodium Chloride) 50 mls @ 12.5 mls/hr IV Q12 [facility] Last Infusion: 12/15/18 03:20 Dose: Infused Documented by: Pantoprazole Sodium 40 mg/ (Sodium Chloride) 110 mls @ 330 mls/hr IV Q12 [facility] Last Infusion: 12/14/18 23:10 Dose: Infused Documented by: Propofol (Diprivan) 1,000 mg in 100 mls @ 37.44 mls/hr CONT INF .Q2H41M [facility]; Protocol Last Admin: 12/15/18 07:30 Dose: 50 mcg/kg/min, 37.4 mls/hr Documented by: Fentanyl () 100 mls @ 20 mls/hr IV UD [facility]; Protocol Last Admin: 12/15/18 06:58 Dose: 200 mcg/hr, 20 mls/hr Documented by: Cisatracurium Besylate 100 mg/ (Sodium Chloride) 250 mls @ 37.44 mls/hr CONT INF .Q6H41M [facility]; Protocol Last Admin: 12/15/18 04:06 Dose: Not Given Documented by: Insulin Human Lispro (Humalog Kwikpen (Bkc)) 0 unit SC Q6 [facility]; Protocol Last Admin: 12/15/18 05:40 Dose: 2 units Documented by: Magnesium Hydroxide (Milk Of Magnesia) 30 ml GT DAILY PRN PRN Reason: Constipation Melatonin (Melatonin) 3 mg GT QHS PRN PRN PRN Reason: INSOMNIA Methylprednisolone (Solu-Medrol) 40 mg IV Q8 [facility] Last Admin: 12/15/18 05:43 Dose: 40 mg Documented by: Metoprolol Tartrate (Lopressor (Beta Ayde)) 50 mg GT BID [facility] Last Admin: 12/14/18 23:16 Dose: Not Given Documented by: Morphine Sulfate () 1 - 2 mg IV Q4H PRN PRN PRN Reason: PAIN Nitroglycerin (Nitrostat) 0.4 mg SUBLINGUAL Q5M PRN PRN Reason: CARDIAC/CHEST PAIN Ondansetron HCl (Zofran) 4 mg IV Q8H PRN PRN PRN Reason: NAUSEA/VOMITING Pharmacy Profile Note () 1 each NOTE X1 PRN PRN Reason: NOT SPECIFIED Sodium Chloride () 10 - 40 ml IV UD PRN PRN Reason: SALINE FLUSH Last Admin: 12/14/18 22:37 Dose: 40 ml Documented by: Medical Necessity - Tobacco Use Smoking Status: Former smoker Tobacco Use: Non-smoker Assessment/Plan All Active Problems (Last Reviewed 11/05/18 @ 10:26 by Pili May) Nephrotic range proteinuria (Acute) CHF exacerbation (Acute) Chest pain (Acute) EDGARDO (acute kidney injury) (Acute) Choledocholithiasis with acute cholecystitis (Acute) Abnormal LFTs (Acute) 68-year-old male with past medical history of CKD stage IV, type II DM, CAD status post CABG, status post stents, hypertension, DASHA who was admitted on 12/10/18 with progressive shortness of breath and chest discomfort. His management has been that of acute decompensated CHF. He was on IV Lasix. Patient got progressively short of breath and was intubated on 12/14/18. He has since been on a mechanical ventilator. His kidney function has also gotten progressively worse. Nephrology has been consulted. Dialysis catheter has been putting today. Plan is for dialysis today. 1. Acute hypoxic respiratory failure secondary to multilobar CAP, secondary to suspected gram-positive organisms, Urine streptococcal and Legionella antigen as well as sputum culture has been negative. 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 Multilobular CAP, secondary to suspected gram-positive organism, Urine Legionella, streptococcal antigen negative, respiratory panel negative, sputum cultures negative Continue on IV Zosyn for now(day #4) 3. EDGARDO on CKD stage IV, creatinine appears to be worse, 6.59 from 5.30 yesterday, urine output has been fair, 1700 mils yesterday status post dialysis catheter, nephrology consulted, dialysis today 4.Chronic diastolic CHF, acute CHF ruled out, initially was on Lasix, off Lasix account of worsening renal function 5. Chest pain, known CAD at this post CABG, PCI stable, medical management for now, cardiac cath later on if patient recovers On aspirin, metoprolol 6.Nonrheumatic aortic valve stenosis, moderate-severe, will need to follow-up with cardiology in the outpatient 7.Type 2 diabetes mellitus, blood sugars are fairly controlled, will continue blood sugar checks with insulin sliding scale 8.Hypertension, controlled, continue home amlodipine, metoprolol, isosorbide regimen. 9. Acute on Chronic normocytic anemia secondary to iron deficiency likely secondary to chronic GI loss, Status post 2 unit PRBC. Hb is stable at 9.3 Stool positive for occult blood, on IV PPI, will hold fluoxetine 10. DVT PPx - Heparin SC Code Visit Inpatient E&M: [id number] [place] [id number]
--- NOTE | 2018-12-15 08:37 | RAD_ITS ---
STUDY: X-RAY CHEST REASON FOR EXAM: Male, 68 years old. Dialysis catheter insertion TECHNIQUE: AP COMPARISON: Earlier today FINDINGS: Endotracheal tube identified with tip terminating 2 cm above the franchesca. Enteric tube is seen extending to the left upper abdomen (along the left paraspinal region although difficult to see). Right jugular dialysis catheter is present with tip terminating at the cavoatrial junction. Mildly improved bilateral airspace consolidation with relative sparing along the periphery and in the right more than left lung base. Small pleural effusions are suspected. There is moderate cardiac enlargement. EKG leads project over the chest. Sternal wires and mediastinal surgical clips compatible with prior CABG. Normal mediastinum and ursula. Normal visualized pulmonary arteries. Normal visualized aortic arch and descending thoracic aorta. No acute bony process. There is no demonstrated abnormality of the visualized soft tissue structures of the upper abdomen. RAD/CXR for Line Placement IMPRESSION: 1. Right jugular dialysis catheter with tip terminating in lower SVC. 2. Mildly improved bilateral airspace disease could represent pneumonia, pulmonary edema or ARDS. Electronically Signed: Duc Gomez MD ([place]) at 9:21 EDT , Service support ,
[2018-12-15] MEDS: Heparin Injection (Vial) 5,000 UNIT/ML VIAL 5000 UNIT SC ×2 (09:59→21:55)
--- NOTE | 2018-12-15 09:59 | PN_ITS ---
Subjective: Overnight events were reviewed. Patient with significant dyssynchrony requiring temporary paralytic therapy. Patient is deeply sedated at this time. Did discuss with patient's at the bedside and she was updated. Also discussed with nephrology. Patient will have dialysis today with an attempt of removal of 1 to 2 L. General: - - Intubated and sedated. RASS -5. Morbidly obese. HEENT: Atraumatic, PERRLA, EOMI, Normocephalic, - Oral: Moist Mucosa - Slight scleral injection without icterus, No Gingival or Mucosal Lesions/ Ulcerations Neck: Supple, No Nodes, Trachea Midline, JVD, Right Lungs: No rhonchi, No wheeze, No rales, Diminished Cardiovascular: Regular Rhythm, Normal S1, Normal S2, No murmurs, Bradycardic, No rub noted, No Gallop Abdomen: Bowel Sounds Present, Soft, Non Tender, Distended, Obese Extremities: No clubbing, No cyanosis, Capillary Refill Less than 3 Seconds, Edema Skin: No rashes, No breakdown Musculoskeletal: No Tenderness to Palpation of Joints or Extremities Lymphatic: No Cervical, Supraclavicular, or Inguinal Adenopathy Neurological: - - Positive cough and gag reflexes. Responds to painful stimuli. Psych/Mental Status: Flat Affect Vital Signs Temp Pulse Resp BP Pulse Ox 36.1 C L 59 L 14 104/62 90 12/15/18 09:29 12/15/18 09:29 12/15/18 09:29 12/15/18 09:29 12/15/18 09:29 Oxygen Flow Rate (L/min) 5 Oxygen Delivery Method Mechanical Ventilator Weight: 125.7 kg Body Mass Index (BMI) 39.4 Finger Stick Blood Glucose 269 Intake and Output for Last 24 Hours 12/13/18 12/14/18 12/15/18 23:59 23:59 23:59 Intake Total 1100.0 / 1100.0 1554.53 / 1554.53 540.38 / 540.38 Output Total 900 / 900 1700 / 1820 140 / 140 Balance 200.0 / 200.0 -145.47 / -265.47 400.38 / 400.38 Labs (Last 48 Hours) 12/12/18 12/13/18 12/13/18 13:30 08:12 12:36 WBC RBC Hgb Hct MCV MCH MCHC RDW Std Deviation RDW Coeff of Judi Plt Count MPV PT INR APTT Specimen Type Sample Site pH Bicarbonate Actual POC Total CO2 Base Excess O2 Saturation O2 % ABG pCO2 ABG pO2 Martell Test Respiration Rate O2 Delivery Device Minute Volume Vent Mode Tidal Volume POC PEEP EPAP Blood Gas Notified Whom Blood Gas Notified Time Sodium Potassium Chloride Carbon Dioxide Anion Gap BUN Creatinine Estim Creat Clear Calc Est GFR (MDRD) Af Amer Est GFR (MDRD) Non-Af BUN/Creatinine Ratio Glucose Lactic Acid Calcium Phosphorus Magnesium Total Bilirubin AST ALT Alkaline Phosphatase Total Creatine Kinase Total Protein Albumin Globulin Albumin/Globulin Ratio Triglycerides Urine Color Urine Clarity Urine pH Ur Specific [place] Urine Protein Urine Glucose (UA) Urine Ketones Urine Occult Blood Urine Nitrite Urine Bilirubin Urine Urobilinogen Ur Leukocyte Esterase Urine RBC Urine WBC Ur Squamous Epith Cells Amorphous Sediment Urine Bacteria Fine Granular Casts Coarse Granular Casts Urine Mucus MRSA (PCR) POC Glucose 142 H 146 H Blood Type B POSITIVE Antibody Screen NEGATIVE Crossmatch See Detail 12/13/18 12/13/18 12/14/18 17:53 22:18 05:18 WBC 11.0 RBC 3.59 L Hgb 10.2 L Hct 32.5 L MCV 90.5 MCH 28.4 MCHC 31.4 L RDW Std Deviation 47.2 H RDW Coeff of Judi 14.2 Plt Count 314 MPV 9.8 PT INR APTT Specimen Type Sample Site pH Bicarbonate Actual POC Total CO2 Base Excess O2 Saturation O2 % ABG pCO2 ABG pO2 Martell Test Respiration Rate O2 Delivery Device Minute Volume Vent Mode Tidal Volume POC PEEP EPAP Blood Gas Notified Whom Blood Gas Notified Time Sodium Potassium Chloride Carbon Dioxide Anion Gap BUN Creatinine Estim Creat Clear Calc Est GFR (MDRD) Af Amer Est GFR (MDRD) Non-Af BUN/Creatinine Ratio Glucose Lactic Acid Calcium Phosphorus Magnesium Total Bilirubin AST ALT Alkaline Phosphatase Total Creatine Kinase Total Protein Albumin Globulin Albumin/Globulin Ratio Triglycerides Urine Color Urine Clarity Urine pH Ur Specific [place] Urine Protein Urine Glucose (UA) Urine Ketones Urine Occult Blood Urine Nitrite Urine Bilirubin Urine Urobilinogen Ur Leukocyte Esterase Urine RBC Urine WBC Ur Squamous Epith Cells Amorphous Sediment Urine Bacteria Fine Granular Casts Coarse Granular Casts Urine Mucus MRSA (PCR) POC Glucose 57 L 80 Blood Type Antibody Screen Crossmatch 12/14/18 12/14/18 12/14/18 05:18 05:18 08:08 WBC RBC Hgb Hct MCV MCH MCHC RDW Std Deviation RDW Coeff of Judi Plt Count MPV PT INR APTT Specimen Type Sample Site pH Bicarbonate Actual POC Total CO2 Base Excess O2 Saturation O2 % ABG pCO2 ABG pO2 Martell Test Respiration Rate O2 Delivery Device Minute Volume Vent Mode Tidal Volume POC PEEP EPAP Blood Gas Notified Whom Blood Gas Notified Time Sodium 140 Potassium 4.2 Chloride 106 Carbon Dioxide 25.0 Anion Gap 9 BUN 80 H Creatinine 5.30 H Estim Creat Clear Calc 13.52 Est GFR (MDRD) Af Amer 14 L Est GFR (MDRD) Non-Af 12 L BUN/Creatinine Ratio 15.1 Glucose 57 L Lactic Acid Calcium 8.2 L Phosphorus Magnesium Total Bilirubin AST ALT Alkaline Phosphatase Total Creatine Kinase 351 H Total Protein Albumin Globulin Albumin/Globulin Ratio Triglycerides 155 Urine Color Urine Clarity Urine pH Ur Specific [place] Urine Protein Urine Glucose (UA) Urine Ketones Urine Occult Blood Urine Nitrite Urine Bilirubin Urine Urobilinogen Ur Leukocyte Esterase Urine RBC Urine WBC Ur Squamous Epith Cells Amorphous Sediment Urine Bacteria Fine Granular Casts Coarse Granular Casts Urine Mucus MRSA (PCR) POC Glucose 61 L Blood Type Antibody Screen Crossmatch 12/14/18 12/14/18 12/14/18 10:00 11:13 13:47 WBC RBC Hgb Hct MCV MCH MCHC RDW Std Deviation RDW Coeff of Judi Plt Count MPV PT INR APTT Specimen Type Sample Site pH Bicarbonate Actual POC Total CO2 Base Excess O2 Saturation O2 % ABG pCO2 ABG pO2 Martell Test Respiration Rate O2 Delivery Device Minute Volume Vent Mode Tidal Volume POC PEEP EPAP Blood Gas Notified Whom Blood Gas Notified Time Sodium Potassium Chloride Carbon Dioxide Anion Gap BUN Creatinine Estim Creat Clear Calc Est GFR (MDRD) Af Amer Est GFR (MDRD) Non-Af BUN/Creatinine Ratio Glucose Lactic Acid Calcium Phosphorus Magnesium Total Bilirubin AST ALT Alkaline Phosphatase Total Creatine Kinase Total Protein Albumin Globulin Albumin/Globulin Ratio Triglycerides Urine Color Yellow Urine Clarity Cloudy Urine pH 5.0 Ur Specific [place] 1.020 Urine Protein 500 H Urine Glucose (UA) 50 H Urine Ketones Negative Urine Occult Blood Negative Urine Nitrite Negative Urine Bilirubin Negative Urine Urobilinogen Normal Ur Leukocyte Esterase Negative Urine RBC 0 SEEN Urine WBC 0 SEEN Ur Squamous Epith Cells 0 SEEN Amorphous Sediment 3+ Urine Bacteria RARE Fine Granular Casts 0-5 SEEN Coarse Granular Casts 0-5 SEEN Urine Mucus 0 SEEN MRSA (PCR) POC Glucose 122 H 104 Blood Type Antibody Screen Crossmatch 12/14/18 12/14/18 12/14/18 15:49 16:55 17:01 WBC RBC Hgb Hct MCV MCH MCHC RDW Std Deviation RDW Coeff of Judi Plt Count MPV PT 17.1 H INR 1.4 APTT 37.2 H Specimen Type ART ART Sample Site R Radial L Radial pH 7.40 7.28 L Bicarbonate Actual 19.7 L 21.9 L POC Total CO2 21 23 Base Excess -5 L -5 L O2 Saturation 93 L 94 L O2 % 45 100 ABG pCO2 31.5 L 46.8 H ABG pO2 66 L 80 Martell Test POS POS Respiration Rate 14 O2 Delivery Device Bi / C PAP Vent Minute Volume Vent Mode A-C Tidal Volume POC PEEP 8 EPAP 5 Blood Gas Notified Whom ICU HOSP HI Blood Gas Notified Time 1540 1700 Sodium Potassium Chloride Carbon Dioxide Anion Gap BUN Creatinine Estim Creat Clear Calc Est GFR (MDRD) Af Amer Est GFR (MDRD) Non-Af BUN/Creatinine Ratio Glucose Lactic Acid Calcium Phosphorus Magnesium Total Bilirubin AST ALT Alkaline Phosphatase Total Creatine Kinase Total Protein Albumin Globulin Albumin/Globulin Ratio Triglycerides Urine Color Urine Clarity Urine pH Ur Specific [place] Urine Protein Urine Glucose (UA) Urine Ketones Urine Occult Blood Urine Nitrite Urine Bilirubin Urine Urobilinogen Ur Leukocyte Esterase Urine RBC Urine WBC Ur Squamous Epith Cells Amorphous Sediment Urine Bacteria Fine Granular Casts Coarse Granular Casts Urine Mucus MRSA (PCR) POC Glucose Blood Type Antibody Screen Crossmatch 12/14/18 12/14/18 12/14/18 17:24 20:18 21:45 WBC RBC Hgb Hct MCV MCH MCHC RDW Std Deviation RDW Coeff of Judi Plt Count MPV PT INR APTT Specimen Type ART Sample Site L Radial pH 7.17 L* Bicarbonate Actual 23.1 POC Total CO2 25 Base Excess -5 L O2 Saturation 97 O2 % 80 ABG pCO2 63.8 H ABG pO2 122 H Martell Test Respiration Rate 14 O2 Delivery Device Vent Minute Volume Vent Mode PCV Tidal Volume POC PEEP 8 EPAP Blood Gas Notified Whom HOSP Blood Gas Notified Time 2011 Sodium Potassium Chloride Carbon Dioxide Anion Gap BUN Creatinine Estim Creat Clear Calc Est GFR (MDRD) Af Amer Est GFR (MDRD) Non-Af BUN/Creatinine Ratio Glucose Lactic Acid Calcium Phosphorus Magnesium Total Bilirubin AST ALT Alkaline Phosphatase Total Creatine Kinase Total Protein Albumin Globulin Albumin/Globulin Ratio Triglycerides Urine Color Urine Clarity Urine pH Ur Specific [place] Urine Protein Urine Glucose (UA) Urine Ketones Urine Occult Blood Urine Nitrite Urine Bilirubin Urine Urobilinogen Ur Leukocyte Esterase Urine RBC Urine WBC Ur Squamous Epith Cells Amorphous Sediment Urine Bacteria Fine Granular Casts Coarse Granular Casts Urine Mucus MRSA (PCR) Negative POC Glucose 105 Blood Type Antibody Screen Crossmatch 12/14/18 12/14/18 12/15/18 23:26 23:37 00:30 WBC RBC Hgb Hct MCV MCH MCHC RDW Std Deviation RDW Coeff of Judi Plt Count MPV PT INR APTT Specimen Type ART Sample Site L Radial pH 7.21 L Bicarbonate Actual 19.0 L POC Total CO2 20 Base Excess -9 L O2 Saturation 95 O2 % 90 ABG pCO2 47.5 H ABG pO2 89 Martell Test Respiration Rate 14 O2 Delivery Device Vent Minute Volume 8.00 Vent Mode A-C Tidal Volume 550 POC PEEP 8 EPAP Blood Gas Notified Whom [facility] Blood Gas Notified Time 2318 Sodium Potassium Chloride Carbon Dioxide Anion Gap BUN Creatinine Estim Creat Clear Calc Est GFR (MDRD) Af Amer Est GFR (MDRD) Non-Af BUN/Creatinine Ratio Glucose Lactic Acid 0.8 Calcium Phosphorus Magnesium Total Bilirubin AST ALT Alkaline Phosphatase Total Creatine Kinase Total Protein Albumin Globulin Albumin/Globulin Ratio Triglycerides Urine Color Urine Clarity Urine pH Ur Specific [place] Urine Protein Urine Glucose (UA) Urine Ketones Urine Occult Blood Urine Nitrite Urine Bilirubin Urine Urobilinogen Ur Leukocyte Esterase Urine RBC Urine WBC Ur Squamous Epith Cells Amorphous Sediment Urine Bacteria Fine Granular Casts Coarse Granular Casts Urine Mucus MRSA (PCR) POC Glucose 174 H Blood Type Antibody Screen Crossmatch 12/15/18 12/15/18 12/15/18 03:35 03:35 05:35 WBC 11.2 H RBC 3.24 L Hgb 9.3 L Hct 30.7 L MCV 94.8 H MCH 28.7 MCHC 30.3 L RDW Std Deviation 50.5 H RDW Coeff of Judi 14.4 Plt Count 283 MPV 9.9 PT INR APTT Specimen Type Sample Site pH Bicarbonate Actual POC Total CO2 Base Excess O2 Saturation O2 % ABG pCO2 ABG pO2 Martell Test Respiration Rate O2 Delivery Device Minute Volume Vent Mode Tidal Volume POC PEEP EPAP Blood Gas Notified Whom Blood Gas Notified Time Sodium 141 Potassium 6.2 H* Chloride 106 Carbon Dioxide 18.0 L Anion Gap 17 H BUN 95 H Creatinine 6.59 H Estim Creat Clear Calc 10.88 Est GFR (MDRD) Af Amer 11 L Est GFR (MDRD) Non-Af 9 L BUN/Creatinine Ratio 14.4 Glucose 201 H Lactic Acid Calcium 7.8 L Phosphorus 9.0 H* Magnesium 2.8 H Total Bilirubin 1.10 H AST 41 H ALT 53 Alkaline Phosphatase 66 Total Creatine Kinase Total Protein 6.5 Albumin 2.0 L Globulin 4.5 H Albumin/Globulin Ratio 0.4 L Triglycerides Urine Color Urine Clarity Urine pH Ur Specific [place] Urine Protein Urine Glucose (UA) Urine Ketones Urine Occult Blood Urine Nitrite Urine Bilirubin Urine Urobilinogen Ur Leukocyte Esterase Urine RBC Urine WBC Ur Squamous Epith Cells Amorphous Sediment Urine Bacteria Fine Granular Casts Coarse Granular Casts Urine Mucus MRSA (PCR) POC Glucose 204 H Blood Type Antibody Screen Crossmatch Microbiology 12/12/18 13:54 Sputum, Expectorated/Coughed Gram Stain - Final 12/12/18 13:54 Sputum, Expectorated/Coughed Respiratory Culture - Preliminary Appears to be normal respiratory devon. Further studies to follow. 12/13/18 09:50 Stool Stool Occult Blood (JOSE RAMON) - Final Occult Blood Positive 12/11/18 15:20 Urine, Clean Catch Urine Culture - Final Mixed Gram Positive Organisms Clinical Impression(s) from Imaging Studies Chest X-Ray 12/14/18 16:15 IMPRESSION: 1. Endotracheal tube with tip terminating 2 cm above the franchesca. 2. Enteric tube terminates in the medial upper stomach with side-port likely at the GE junction. Recommend advancing 5 cm. 3. Worse bilateral airspace disease could represent pneumonia, pulmonary edema or ARDS. Electronically Signed: Duc Gomez MD ([place]) at 16:40 EDT , Service support , KUB X-Ray 12/14/18 19:41 IMPRESSION: Limited study due to patient's body habitus and motion Non-obstructive bowel gas pattern. NG tube with the tip in the stomach at 2055 Reported and signed by: Latia Mathews DO Electronically Signed: Latia Mathews DO at 20:54 EDT Tel , Service support , Chest X-Ray 12/15/18 08:37 IMPRESSION: 1. Right jugular dialysis catheter with tip terminating in lower SVC. 2. Mildly improved bilateral airspace disease could represent pneumonia, pulmonary edema or ARDS. Electronically Signed: Duc Gomez MD ([place]) at 9:21 EDT , Service support , Medical Necessity - Tobacco Use Smoking Status: Former smoker Tobacco Use: Non-smoker Assessment/Plan All Active Problems (Last Reviewed 11/05/18 @ 10:26 by Pili May) Nephrotic range proteinuria (Acute) CHF exacerbation (Acute) Chest pain (Acute) EDGARDO (acute kidney injury) (Acute) Choledocholithiasis with acute cholecystitis (Acute) Abnormal LFTs (Acute) RECOMMENDATIONS: 1. Continue Zosyn, pending infectious work-up. 2. Continue bronchodilators and steroids 3. Discontinue paralytic therapy 4. Increase PEEP as necessary. Attempt to wean FiO2 to 60%. 5. Hemodialysis with potential fluid removal 6. Hold on tube feeds for 24 hours 7. Attempt to wean sedation IMPRESSIONS: 1. Acute hypoxemic respiratory failure secondary to CHF versus ARDS While initially felt to be secondary to decompensated heart failure, the radiographic findings noted on chest x-ray is more concerning for multilobar pneumonia. The patient has been diuresed with worsening renal function and no significant improvement in his respiratory status. Given renal function, diuretic therapy would likely not be successful. Patient will receive hemodialysis with possible fluid removal. If patient does not improve with fluid removal, ARDS would be suspected. Patient does have some pleural effusions, but these do not appear to be significant enough to lead to current situation. We will continue paralytic therapy. Increase PEEP as necessary to maintain appropriate saturations. Attempt to wean FiO2 to 60%. Patient is not received targeted tidal volume secondary to respiratory dyssynchrony. 2. Coronary artery disease/heart failure with preserved ejection fra ction/valvular heart disease The patient does not appear to be overtly volume overloaded at this time. Cardiology is currently following. Agree with holding diuretic therapy, given worsening renal insufficiency. Will attempt to remove fluid with hemodialysis. 3. Acute on chronic kidney disease Suspect prerenal etiology due to use of diuretics, coupled with chronic medical renal disease. Nephrology is following. Continue to hold nephrotoxic medications. 4. Chronic anemia The patient has baseline chronic anemia. In his setting of coronary artery disease, the patient was transfused packed red blood cells. At the current time, there are no signs of overt blood loss. There is no indication for transfusion of additional blood products. 5. Obstructive sleep apnea Patient currently intubated. Will likely be extubated to BiPAP therapy with sleep. 6. Diabetes mellitus/hypertension/hyperlipidemia/anxiety/depression/CODE STATUS Complicates care, management, recovery and prognosis. Patient's has changed CODE STATUS to full code. Continue to monitor blood sugars closely, especially with steroids and potential tube feeds in 24 hours. Blood pressures been holding for now. Will discontinue blood pressure medications and treat as needed. Addendum 1532: Patient weaned on propofol through the day. Patient started to have dyssynchrony at a level of 5. Patient was increased to 10 given ventilator dys synchrony. Will attempt to wean fentanyl drip. Patient did have some periodic jerking, but not following commands or having significant involuntary movements noted. Oxygenation has remained relatively stable. TIME: 80 minutes of critical care time spent addressing patient's acute hypoxic respiratory failure, acute kidney injury, diabetes mellitus, review of all data and collaboration with care team (5:45 AM to 10:20 AM, 2 PM to 3 PM) Code Visit Procedures: 06644 Critial Care Addl 30 Min 9xxxx: [id number] Critical care first hour
[2018-12-15] MEDS: Chlorhexidine 15 ML PO ×2 (10:03→21:54)
--- NOTE | 2018-12-15 10:03 | PN.RENAL_ITS ---
Patient Problems: Active and Suspected Problems (Last Reviewed 11/05/18 @ 10:26 by Pili May) Nephrotic range proteinuria (Acute) Chest pain (Acute) EDGARDO (acute kidney injury) (Acute) Subjective: Pt is now intubated in ICU. Hemodynamically stable cannot do ROS - Physical Exam General: - - sedated HEENT: Atraumatic Oral: - - ET in place Neck: Supple, No JVD Lungs: - - Intubated FIO2 80%. Equal air entry. b/l ronchi Abdomen: Non Tender, Hypoactive Bowel Sounds Extremities: No clubbing, No cyanosis, Edema - +1 edema of LE Lymphatic: No Cervical, Supraclavicular, or Inguinal Adenopathy Neurological: - - sedated Vital Signs Temp Pulse Resp BP Pulse Ox 96.9 F L 59 L 14 104/62 90 12/15/18 09:29 12/15/18 09:29 12/15/18 09:29 12/15/18 09:29 12/15/18 09:29 Oxygen Flow Rate (L/min) 5 Oxygen Delivery Method Mechanical Ventilator Weight: 125.7 kg Body Mass Index (BMI) 39.4 Finger Stick Blood Glucose 269 Intake and Output for Last 24 Hours 12/13/18 12/14/18 12/15/18 23:59 23:59 23:59 Intake Total 1100.0 / 1100.0 1554.53 / 1554.53 540.38 / 540.38 Output Total 900 / 900 1700 / 1820 140 / 140 Balance 200.0 / 200.0 -145.47 / -265.47 400.38 / 400.38 Microbiology Past 72 Hours 12/12/18 13:54 Gram Stain - Final Sputum, Expectorated/Coughed Respiratory Culture - Preliminary Appears to be normal respiratory devon. Further studies to follow. 12/13/18 09:50 Stool Occult Blood (JOSE RAMON) - Final Stool Occult Blood Positive 12/11/18 15:20 Urine Culture - Final Urine, Clean Catch Mixed Gram Positive Organisms 12/11/18 20:20 Respiratory Panel (PCR) - Final Mucosa - Nose Laboratory Tests Past 24 Hrs 12/14/18 12/14/18 12/14/18 05:18 10:00 15:49 WBC RBC Hgb Hct MCV MCH MCHC RDW Std Deviation RDW Coeff of Judi Plt Count MPV PT INR APTT Specimen Type ART Sample Site R Radial pH 7.40 Bicarbonate Actual 19.7 L POC Total CO2 21 Base Excess -5 L O2 Saturation 93 L O2 % 45 ABG pCO2 31.5 L ABG pO2 66 L Martell Test POS Respiration Rate 14 O2 Delivery Device Bi / C PAP Minute Volume Vent Mode Tidal Volume POC PEEP EPAP 5 Blood Gas Notified Whom ICU Blood Gas Notified Time 1540 Sodium Potassium Chloride Carbon Dioxide Anion Gap BUN Creatinine Estim Creat Clear Calc Est GFR (MDRD) Af Amer Est GFR (MDRD) Non-Af BUN/Creatinine Ratio Glucose Lactic Acid Calcium Phosphorus Magnesium Total Bilirubin AST ALT Alkaline Phosphatase Total Creatine Kinase 351 H Total Protein Albumin Globulin Albumin/Globulin Ratio Triglycerides 155 Urine Color Yellow Urine Clarity Cloudy Urine pH 5.0 Ur Specific [place] 1.020 Urine Protein 500 H Urine Glucose (UA) 50 H Urine Ketones Negative Urine Occult Blood Negative Urine Nitrite Negative Urine Bilirubin Negative Urine Urobilinogen Normal Ur Leukocyte Esterase Negative Urine RBC 0 SEEN Urine WBC 0 SEEN Ur Squamous Epith Cells 0 SEEN Amorphous Sediment 3+ Urine Bacteria RARE Fine Granular Casts 0-5 SEEN Coarse Granular Casts 0-5 SEEN Urine Mucus 0 SEEN MRSA (PCR) 12/14/18 12/14/18 12/14/18 16:55 17:01 20:18 WBC RBC Hgb Hct MCV MCH MCHC RDW Std Deviation RDW Coeff of Judi Plt Count MPV PT 17.1 H INR 1.4 APTT 37.2 H Specimen Type ART ART Sample Site L Radial L Radial pH 7.28 L 7.17 L* Bicarbonate Actual 21.9 L 23.1 POC Total CO2 23 25 Base Excess -5 L -5 L O2 Saturation 94 L 97 O2 % 100 80 ABG pCO2 46.8 H 63.8 H ABG pO2 80 122 H Martell Test POS Respiration Rate 14 O2 Delivery Device Vent Vent Minute Volume Vent Mode A-C PCV Tidal Volume POC PEEP 8 8 EPAP Blood Gas Notified Whom HOSP HOSP Blood Gas Notified Time 1702011 Sodium Potassium Chloride Carbon Dioxide Anion Gap BUN Creatinine Estim Creat Clear Calc Est GFR (MDRD) Af Amer Est GFR (MDRD) Non-Af BUN/Creatinine Ratio Glucose Lactic Acid Calcium Phosphorus Magnesium Total Bilirubin AST ALT Alkaline Phosphatase Total Creatine Kinase Total Protein Albumin Globulin Albumin/Globulin Ratio Triglycerides Urine Color Urine Clarity Urine pH Ur Specific [place] Urine Protein Urine Glucose (UA) Urine Ketones Urine Occult Blood Urine Nitrite Urine Bilirubin Urine Urobilinogen Ur Leukocyte Esterase Urine RBC Urine WBC Ur Squamous Epith Cells Amorphous Sediment Urine Bacteria Fine Granular Casts Coarse Granular Casts Urine Mucus MRSA (PCR) 12/14/18 12/14/18 12/15/18 21:45 23:26 00:30 WBC RBC Hgb Hct MCV MCH MCHC RDW Std Deviation RDW Coeff of Judi Plt Count MPV PT INR APTT Specimen Type ART Sample Site L Radial pH 7.21 L Bicarbonate Actual 19.0 L POC Total CO2 20 Base Excess -9 L O2 Saturation 95 O2 % 90 ABG pCO2 47.5 H ABG pO2 89 Martell Test Respiration Rate 14 O2 Delivery Device Vent Minute Volume 8.00 Vent Mode A-C Tidal Volume 550 POC PEEP 8 EPAP Blood Gas Notified Whom [facility] Blood Gas Notified Time 2318 Sodium Potassium Chloride Carbon Dioxide Anion Gap BUN Creatinine Estim Creat Clear Calc Est GFR (MDRD) Af Amer Est GFR (MDRD) Non-Af BUN/Creatinine Ratio Glucose Lactic Acid 0.8 Calcium Phosphorus Magnesium Total Bilirubin AST ALT Alkaline Phosphatase Total Creatine Kinase Total Protein Albumin Globulin Albumin/Globulin Ratio Triglycerides Urine Color Urine Clarity Urine pH Ur Specific [place] Urine Protein Urine Glucose (UA) Urine Ketones Urine Occult Blood Urine Nitrite Urine Bilirubin Urine Urobilinogen Ur Leukocyte Esterase Urine RBC Urine WBC Ur Squamous Epith Cells Amorphous Sediment Urine Bacteria Fine Granular Casts Coarse Granular Casts Urine Mucus MRSA (PCR) Negative 12/15/18 12/15/18 03:35 03:35 WBC 11.2 H RBC 3.24 L Hgb 9.3 L Hct 30.7 L MCV 94.8 H MCH 28.7 MCHC 30.3 L RDW Std Deviation 50.5 H RDW Coeff of Judi 14.4 Plt Count 283 MPV 9.9 PT INR APTT Specimen Type Sample Site pH Bicarbonate Actual POC Total CO2 Base Excess O2 Saturation O2 % ABG pCO2 ABG pO2 Martell Test Respiration Rate O2 Delivery Device Minute Volume Vent Mode Tidal Volume POC PEEP EPAP Blood Gas Notified Whom Blood Gas Notified Time Sodium 141 Potassium 6.2 H* Chloride 106 Carbon Dioxide 18.0 L Anion Gap 17 H BUN 95 H Creatinine 6.59 H Estim Creat Clear Calc 10.88 Est GFR (MDRD) Af Amer 11 L Est GFR (MDRD) Non-Af 9 L BUN/Creatinine Ratio 14.4 Glucose 201 H Lactic Acid Calcium 7.8 L Phosphorus 9.0 H* Magnesium 2.8 H Total Bilirubin 1.10 H AST 41 H ALT 53 Alkaline Phosphatase 66 Total Creatine Kinase Total Protein 6.5 Albumin 2.0 L Globulin 4.5 H Albumin/Globulin Ratio 0.4 L Triglycerides Urine Color Urine Clarity Urine pH Ur Specific [place] Urine Protein Urine Glucose (UA) Urine Ketones Urine Occult Blood Urine Nitrite Urine Bilirubin Urine Urobilinogen Ur Leukocyte Esterase Urine RBC Urine WBC Ur Squamous Epith Cells Amorphous Sediment Urine Bacteria Fine Granular Casts Coarse Granular Casts Urine Mucus MRSA (PCR) POC Glucose 12/15/18 12/14/18 12/14/18 05:35 23:37 17:24 POC Glucose 204 H 174 H 105 12/14/18 12/14/18 12/14/18 13:47 11:13 08:08 POC Glucose 104 122 H 61 L Medical Necessity - Tobacco Use Smoking Status: Former smoker Tobacco Use: Non-smoker Assessment/Plan All Active Problems (Last Reviewed 11/05/18 @ 10:26 by Pili May) Nephrotic range proteinuria (Acute) CHF exacerbation (Acute) Chest pain (Acute) EDGARDO (acute kidney injury) (Acute) Choledocholithiasis with acute cholecystitis (Acute) Abnormal LFTs (Acute) 1- EDGARDO on CKD stage 4. Baseline Cr ~ 2.6-2.7 mg/dL from most probably DNP. Pt has significant proteinuria. Pro/Cr was a 11 mg/mg. EDGARDO is from ATN related to sepsis. Kidney function is worsening.Cr is 6.6 mg/dL and BUN 95. Pt is now oliguric with hyperkalemia and acidosis Will arrange for the 1st HD session today with UF goal 1-2 L after discussing with Dr. Guthrie. Keep MAP > 65. Avoid IV contrast Check renal function in am. Will evaluate the need of HD tomorrow Will continue to monitor for kidney function recovery 2- Hyperkalemia : from EDGARDO . K is 6.9. HD session today with 1 K for the 1st hour and then 2K 3-High anion gap acidosis. from EDGARDO. Should improve with HD 4- Hyperphosphatemia: from EDGARDO. Should improve with HD. will monitor the level without binder for ow 5- ARF from pneumonia and ARDS Vs CHF Intubated. vent support and Abx as per ICU team UF goal 1-2 L today Thank you for allowing me to participate in Mr. Gardner's care Renal team will continue to follow Please call if any question at [phone] d/w Dr. Cleveland Joyec MD
[2018-12-15] MEDS: Aspirin 81 MG TAB.CHEW GT (10:16)
[2018-12-15] MEDS: FLUoxetine 10 MG Capsule 40 MG GT (10:16)
[2018-12-15] MEDS: Polyethylene Glycol 3350 17 GM PACKET GT (10:17)
[2018-12-15] MEDS: Senna/Docusate Sodium 1 Tablet 2 TABLET GT ×2 (10:17→21:55)
[2018-12-15] MEDS: Allopurinol 100 MG Tablet GT (10:18)
--- NOTE | 2018-12-15 11:04 | OP.PCM_ITS ---
Report of Operation Date of Procedure: 12/15/18 Surgery/Procedure Performed:: Hemodialysis catheter Description of Surgical Findings:: Temporary dialysis catheter placement procedure note Indication: Hemodialysis Procedure: A time-out was completed to verify correct patient, indication, medic ation allergies, procedure, coagulation studies, informed consent signed, and equipment needed. The patient was placed in the supine position for a central line placement to the rt IJ vein. The patients rt neck was prepped using chlorhexidine and a full body sterile drape was applied. 1% lidocaine was used to anesthetize the surrounding skin. A 12fr 16 cm Temporary hemodialysis catheter introduced into the internal jugular vein using the modified Seldinger technique with the assistance of ultrasound. The catheter was threaded smoothly over the guidewire, the guidewire was removed easily, nonpulsatile blood returned. The site was dilated up twice in a stepwise fashion. All ports were aspirated of air and flushed with sterile saline, Then locked with U 1000 heparin 1.3 cc to each port. The catheter was sutured in place and covered with an occlusive dressing impregnated with chlorhexidine. Post-procedure: The patient tolerated the procedure well. Vital signs remained stable. EBL 5cc. No complications. Chest X Ray ordered to confirm tip placement and the absence of pneumothorax. Code Visit Procedures: [id number] Insert Non-tunnel CV Cath
[2018-12-15] MEDS: CHLORHEXIDINE GLUC 2% CLOTH 1 EACH TOWELETTE TOPICAL (11:40)
[2018-12-15 11:45] LABS: Bedside Glucose 220 mg/dL (70-110)
[2018-12-15] MEDS: Propofol 10MG/Ml 1,000 MG/100 ML Bottle 11.3 MG CONT INF (12:55)
--- NOTE | 2018-12-15 13:06 | CASEMGMT ---
MARCO A ASTORGA Note: Call to Erna Nurse Coordinator @ [facility] [phone]. Message left re: pt remains @ [facility], does not wish to transfer and clinical information will be faxed. Call to patient's , role of MARCO A ASTORGA introduced and states pt does not wish to transfer to [facility]. Discussion re: transfers and billing. states pt had said to her he wished to remain @ [facility]. MARCO A ASTORGA let know information would be faxed to OR for update, but transfer would not be initiated. Remington TANNERN RN ACM
[2018-12-15 13:41] LABS: Hepatitis B Surface Antibody Non-Reactive; Hepatitis B Surface Antigen Non-Reactive (Nonreactive)
[2018-12-15] MEDS: 0.9% NaCl Peripheral Flush Adult/Peds IV (14:35)
[2018-12-15] MEDS: Heparin 10,000 UNITS/10 ML Vial 1000 UNITS IV (14:36)
--- NOTE | 2018-12-15 15:00 | DIALYSIS ---
HD x 2.5 hours complete. Ran on 1k bath for 1 hour. Ran on 2k bath for 1.5 hours. Tolerated tx very well. UF of 1500ml. Used right IJ catheter. Catheter closed with heparin per fill volume. Report was given to MARCO A Sims.
[2018-12-15 17:15] LABS: Bedside Glucose 215 mg/dL (70-110)
[2018-12-15] MEDS: fentaNYL drip 100 ML 15 MCG IV ×2 (17:47→23:53)
[2018-12-15] MEDS: Propofol 10MG/Ml 1,000 MG/100 ML Bottle 7.5 MG CONT INF (22:05)
[2018-12-16] VITALS (38 sets, daily range): BP systolic 113–160; BP diastolic 52–74; PULSE 73–101; RESP 13–19; TEMP 36.4–37.7; O2SAT 90–96
[2018-12-16 03:49] LABS: Absolute Lymphocyte Count 0.35 X10^3/uL (0.83-4.51); Absolute Neutrophil Count 9.8 X10^3/uL (2.0-7.7); Basophil# 0.01 X10^3/uL; Basophil% 0.1 % (0-1); Hematocrit 30.1 % (40-54); Hemoglobin 9.4 g/dL (13.0-16.5); Lymphocyte # 0.35 X10^3/ul (4.0); Lymphocyte % 3.2 % (19-41); Mean Corp Hgb Conc 31.2 g/dL (32-36); Mean Corpuscular Hgb 28.6 pg (27.0-32.0); Mean Corpuscular Volume 91.5 fL (80-94); Mean Platelet Vol. 9.6 fl (6.2-12.0); Monocyte# 0.53 X10^3/uL; Monocyte% 4.8 % (0-10); NRBC Flagged by Analyzer 0.2 % (0-5); Neutrophil # 9.76 X10^3/uL (2.7-7.7); Neutrophil % 89.1 % (47-70); POSITIVE DIFFERENTIAL YES; Platelet Count 302 K/mm3 (150-450); RBC Distribution Width CV 14.4 % (11.6-14.6); RBC Distribution Width SD 48.7 fl (35.1-43.9); Red Blood Count 3.29 M/mm3 (4.6-6.2)
[2018-12-16 03:53] LABS: Differential Indicated SCAN CRITERIA MET
[2018-12-16 04:21] LABS: Albumin, Serum 2.1 g/dL (3.2-5.0); BUN 103 mg/dL (7-18); BUN/Creat Ratio 13.3 RATIO (10-20); Calcium,Total 7.7 mg/dL (8.5-10.1); Chloride 99 mmol/L (98-107); Creatinine, Serum 7.74 mg/dL (0.70-1.30); EST Glomerular Filtration Rate 7 mL/min (>60); Est Glom Filt Rate - Afr Amer 9 mL/min (>60); Estimated Creatinine Clearance 9.26 ml/min; Glucose 343 mg/dL (74-106); Phosphorus 11.7 mg/dL (2.5-4.9); Potassium 5.8 mmol/L (3.5-5.1); Sodium Level 138 mmol/L (136-145)
[2018-12-16 05:01] LABS: Differential Comment SCANNED; Platelet Estimate MOD INC (ADEQ)
[2018-12-16] MEDS: Insulin Lispro 100 UNIT/ML INSULN.PEN SC ×4 (05:14→23:50)
[2018-12-16 05:21] LABS: Bedside Glucose 323 mg/dL (70-110)
--- NOTE | 2018-12-16 06:37 | PN_ITS ---
Subjective: The patient was seen and examined at the bedside this morning. Events from the last 24 hours have been reviewed. The patient is currently afebrile, hemodynamically stable and maintaining appropriate oxygen saturations on assist control mode mechanical ventilation with an FiO2 requirement of 45% and PEEP of 10. The patient has remained on a fixed rate of propofol and fentanyl for sedation. He has yet to have any bowel movements. The patient did undergo dialysis yesterday with 1.5 L of fluid removed. Potassium is elevated this morning at 5.8. Phosphorus is also elevated at 11.7. Objective: The patient's most recent lab work, culture data and imaging studies have all been personally reviewed. CT chest without contrast dated December 14 revealed bilateral groundglass changes with consolidation with subpleural sparing along with bilateral pleural effusions. Surface echocardiogram revealed normal LV size with concentric LVH and an ejection fraction of 65%. There was moderate to severe aortic stenosis. Strep and urine Legionella antigens were both negative. Respiratory viral panel was negative. Expectorated sputum culture appears to be normal respiratory devon. General: - - Remains intubated, sedated and mechanically ventilated. HEENT: Atraumatic, PERRLA, Normocephalic Oral: Moist Mucosa, - - Endotracheal and OG tubes currently in place Neck: Supple, No Nodes, Trachea Midline, - - Temporary hemodialysis catheter in place Lungs: No rhonchi, No wheeze, No rales, Diminished Cardiovascular: Regular rate, Regular Rhythm, Normal S1, Normal S2, Murmur Abdomen: Bowel Sounds Present, Soft, Non Tender, Obese Extremities: No clubbing, No cyanosis, Edema Skin: No breakdown Musculoskeletal: No Muscle Wasting Lymphatic: No Cervical, Supraclavicular, or Inguinal Adenopathy Neurological: - - No focal neurological deficits. Currently sedated. Vital Signs Temp Pulse Resp BP Pulse Ox 98.3 F 75 14 123/56 H 92 12/16/18 04:00 12/16/18 06:00 12/16/18 06:00 12/16/18 06:00 12/16/18 06:00 Oxygen Flow Rate (L/min) 5 Oxygen Delivery Method Mechanical Ventilator Weight: 277 lb 1.937 oz Body Mass Index (BMI) 39.4 Finger Stick Blood Glucose 269 Intake and Output for Last 24 Hours 12/14/18 12/15/18 12/16/18 23:59 23:59 23:59 Intake Total 1554.53 / 1554.53 1751.05 / 1830.51 244.25 / 244.25 Output Total 1700 / 1820 2029 Balance -145.47 / -265.47 -278.95 / -204.49 239.25 / 239.25 Labs (Last 48 Hours) 12/12/18 12/14/18 12/14/18 13:30 05:18 05:18 WBC RBC Hgb Hct MCV MCH MCHC RDW Std Deviation RDW Coeff of Judi Plt Count MPV Immature Gran % (Auto) Neut % (Auto) Lymph % (Auto) [place] % (Auto) Eos % (Auto) Baso % (Auto) Absolute Neuts (auto) Absolute Lymphs (auto) Nucleated RBC % Differential Comment Platelet Estimate PT INR APTT Specimen Type Sample Site pH Bicarbonate Actual POC Total CO2 Base Excess O2 Saturation O2 % ABG pCO2 ABG pO2 Martell Test Respiration Rate O2 Delivery Device Minute Volume Vent Mode Tidal Volume POC PEEP EPAP Blood Gas Notified Whom Blood Gas Notified Time Sodium 140 Potassium 4.2 Chloride 106 Carbon Dioxide 25.0 Anion Gap 9 BUN 80 H Creatinine 5.30 H Estim Creat Clear Calc 13.52 Est GFR (MDRD) Af Amer 14 L Est GFR (MDRD) Non-Af 12 L BUN/Creatinine Ratio 15.1 Glucose 57 L Lactic Acid Calcium 8.2 L Phosphorus Magnesium Total Bilirubin AST ALT Alkaline Phosphatase Total Creatine Kinase 351 H Total Protein Albumin Globulin Albumin/Globulin Ratio Triglycerides 155 Urine Color Urine Clarity Urine pH Ur Specific [place] Urine Protein Urine Glucose (UA) Urine Ketones Urine Occult Blood Urine Nitrite Urine Bilirubin Urine Urobilinogen Ur Leukocyte Esterase Urine RBC Urine WBC Ur Squamous Epith Cells Amorphous Sediment Urine Bacteria Fine Granular Casts Coarse Granular Casts Urine Mucus Hep Bs Antigen Hep Bs Antibody Hep B Core Total Ab MRSA (PCR) POC Glucose Crossmatch See Detail 12/14/18 12/14/18 12/14/18 08:08 10:00 11:13 WBC RBC Hgb Hct MCV MCH MCHC RDW Std Deviation RDW Coeff of Judi Plt Count MPV Immature Gran % (Auto) Neut % (Auto) Lymph % (Auto) [place] % (Auto) Eos % (Auto) Baso % (Auto) Absolute Neuts (auto) Absolute Lymphs (auto) Nucleated RBC % Differential Comment Platelet Estimate PT INR APTT Specimen Type Sample Site pH Bicarbonate Actual POC Total CO2 Base Excess O2 Saturation O2 % ABG pCO2 ABG pO2 Martell Test Respiration Rate O2 Delivery Device Minute Volume Vent Mode Tidal Volume POC PEEP EPAP Blood Gas Notified Whom Blood Gas Notified Time Sodium Potassium Chloride Carbon Dioxide Anion Gap BUN Creatinine Estim Creat Clear Calc Est GFR (MDRD) Af Amer Est GFR (MDRD) Non-Af BUN/Creatinine Ratio Glucose Lactic Acid Calcium Phosphorus Magnesium Total Bilirubin AST ALT Alkaline Phosphatase Total Creatine Kinase Total Protein Albumin Globulin Albumin/Globulin Ratio Triglycerides Urine Color Yellow Urine Clarity Cloudy Urine pH 5.0 Ur Specific [place] 1.020 Urine Protein 500 H Urine Glucose (UA) 50 H Urine Ketones Negative Urine Occult Blood Negative Urine Nitrite Negative Urine Bilirubin Negative Urine Urobilinogen Normal Ur Leukocyte Esterase Negative Urine RBC 0 SEEN Urine WBC 0 SEEN Ur Squamous Epith Cells 0 SEEN Amorphous Sediment 3+ Urine Bacteria RARE Fine Granular Casts 0-5 SEEN Coarse Granular Casts 0-5 SEEN Urine Mucus 0 SEEN Hep Bs Antigen Hep Bs Antibody Hep B Core Total Ab MRSA (PCR) POC Glucose 61 L 122 H Crossmatch 12/14/18 12/14/18 12/14/18 13:47 15:49 16:55 WBC RBC Hgb Hct MCV MCH MCHC RDW Std Deviation RDW Coeff of Judi Plt Count MPV Immature Gran % (Auto) Neut % (Auto) Lymph % (Auto) [place] % (Auto) Eos % (Auto) Baso % (Auto) Absolute Neuts (auto) Absolute Lymphs (auto) Nucleated RBC % Differential Comment Platelet Estimate PT 17.1 H INR 1.4 APTT 37.2 H Specimen Type ART Sample Site R Radial pH 7.40 Bicarbonate Actual 19.7 L POC Total CO2 21 Base Excess -5 L O2 Saturation 93 L O2 % 45 ABG pCO2 31.5 L ABG pO2 66 L Martell Test POS Respiration Rate 14 O2 Delivery Device Bi / C PAP Minute Volume Vent Mode Tidal Volume POC PEEP EPAP 5 Blood Gas Notified Whom ICU Blood Gas Notified Time 1540 Sodium Potassium Chloride Carbon Dioxide Anion Gap BUN Creatinine Estim Creat Clear Calc Est GFR (MDRD) Af Amer Est GFR (MDRD) Non-Af BUN/Creatinine Ratio Glucose Lactic Acid Calcium Phosphorus Magnesium Total Bilirubin AST ALT Alkaline Phosphatase Total Creatine Kinase Total Protein Albumin Globulin Albumin/Globulin Ratio Triglycerides Urine Color Urine Clarity Urine pH Ur Specific [place] Urine Protein Urine Glucose (UA) Urine Ketones Urine Occult Blood Urine Nitrite Urine Bilirubin Urine Urobilinogen Ur Leukocyte Esterase Urine RBC Urine WBC Ur Squamous Epith Cells Amorphous Sediment Urine Bacteria Fine Granular Casts Coarse Granular Casts Urine Mucus Hep Bs Antigen Hep Bs Antibody Hep B Core Total Ab MRSA (PCR) POC Glucose 104 Crossmatch 12/14/18 12/14/18 12/14/18 17:01 17:24 20:18 WBC RBC Hgb Hct MCV MCH MCHC RDW Std Deviation RDW Coeff of Judi Plt Count MPV Immature Gran % (Auto) Neut % (Auto) Lymph % (Auto) [place] % (Auto) Eos % (Auto) Baso % (Auto) Absolute Neuts (auto) Absolute Lymphs (auto) Nucleated RBC % Differential Comment Platelet Estimate PT INR APTT Specimen Type ART ART Sample Site L Radial L Radial pH 7.28 L 7.17 L* Bicarbonate Actual 21.9 L 23.1 POC Total CO2 23 25 Base Excess -5 L -5 L O2 Saturation 94 L 97 O2 % 100 80 ABG pCO2 46.8 H 63.8 H ABG pO2 80 122 H Martell Test POS Respiration Rate 14 O2 Delivery Device Vent Vent Minute Volume Vent Mode A-C PCV Tidal Volume POC PEEP 8 8 EPAP Blood Gas Notified Whom HOSP MD HOSP MD Blood Gas Notified Time 1700 2011 Sodium Potassium Chloride Carbon Dioxide Anion Gap BUN Creatinine Estim Creat Clear Calc Est GFR (MDRD) Af Amer Est GFR (MDRD) Non-Af BUN/Creatinine Ratio Glucose Lactic Acid Calcium Phosphorus Magnesium Total Bilirubin AST ALT Alkaline Phosphatase Total Creatine Kinase Total Protein Albumin Globulin Albumin/Globulin Ratio Triglycerides Urine Color Urine Clarity Urine pH Ur Specific [place] Urine Protein Urine Glucose (UA) Urine Ketones Urine Occult Blood Urine Nitrite Urine Bilirubin Urine Urobilinogen Ur Leukocyte Esterase Urine RBC Urine WBC Ur Squamous Epith Cells Amorphous Sediment Urine Bacteria Fine Granular Casts Coarse Granular Casts Urine Mucus Hep Bs Antigen Hep Bs Antibody Hep B Core Total Ab MRSA (PCR) POC Glucose 105 Crossmatch 12/14/18 12/14/18 12/14/18 21:45 23:26 23:37 WBC RBC Hgb Hct MCV MCH MCHC RDW Std Deviation RDW Coeff of Judi Plt Count MPV Immature Gran % (Auto) Neut % (Auto) Lymph % (Auto) [place] % (Auto) Eos % (Auto) Baso % (Auto) Absolute Neuts (auto) Absolute Lymphs (auto) Nucleated RBC % Differential Comment Platelet Estimate PT INR APTT Specimen Type ART Sample Site L Radial pH 7.21 L Bicarbonate Actual 19.0 L POC Total CO2 20 Base Excess -9 L O2 Saturation 95 O2 % 90 ABG pCO2 47.5 H ABG pO2 89 Martell Test Respiration Rate 14 O2 Delivery Device Vent Minute Volume 8.00 Vent Mode A-C Tidal Volume 550 POC PEEP 8 EPAP Blood Gas Notified Whom [facility] Blood Gas Notified Time 2318 Sodium Potassium Chloride Carbon Dioxide Anion Gap BUN Creatinine Estim Creat Clear Calc Est GFR (MDRD) Af Amer Est GFR (MDRD) Non-Af BUN/Creatinine Ratio Glucose Lactic Acid Calcium Phosphorus Magnesium Total Bilirubin AST ALT Alkaline Phosphatase Total Creatine Kinase Total Protein Albumin Globulin Albumin/Globulin Ratio Triglycerides Urine Color Urine Clarity Urine pH Ur Specific [place] Urine Protein Urine Glucose (UA) Urine Ketones Urine Occult Blood Urine Nitrite Urine Bilirubin Urine Urobilinogen Ur Leukocyte Esterase Urine RBC Urine WBC Ur Squamous Epith Cells Amorphous Sediment Urine Bacteria Fine Granular Casts Coarse Granular Casts Urine Mucus Hep Bs Antigen Hep Bs Antibody Hep B Core Total Ab MRSA (PCR) Negative POC Glucose 174 H Crossmatch 12/15/18 12/15/18 12/15/18 00:30 03:35 03:35 WBC 11.2 H RBC 3.24 L Hgb 9.3 L Hct 30.7 L MCV 94.8 H MCH 28.7 MCHC 30.3 L RDW Std Deviation 50.5 H RDW Coeff of Judi 14.4 Plt Count 283 MPV 9.9 Immature Gran % (Auto) Neut % (Auto) Lymph % (Auto) [place] % (Auto) Eos % (Auto) Baso % (Auto) Absolute Neuts (auto) Absolute Lymphs (auto) Nucleated RBC % Differential Comment Platelet Estimate PT INR APTT Specimen Type Sample Site pH Bicarbonate Actual POC Total CO2 Base Excess O2 Saturation O2 % ABG pCO2 ABG pO2 Martell Test Respiration Rate O2 Delivery Device Minute Volume Vent Mode Tidal Volume POC PEEP EPAP Blood Gas Notified Whom Blood Gas Notified Time Sodium 141 Potassium 6.2 H* Chloride 106 Carbon Dioxide 18.0 L Anion Gap 17 H BUN 95 H Creatinine 6.59 H Estim Creat Clear Calc 10.88 Est GFR (MDRD) Af Amer 11 L Est GFR (MDRD) Non-Af 9 L BUN/Creatinine Ratio 14.4 Glucose 201 H Lactic Acid 0.8 Calcium 7.8 L Phosphorus 9.0 H* Magnesium 2.8 H Total Bilirubin 1.10 H AST 41 H ALT 53 Alkaline Phosphatase 66 Total Creatine Kinase Total Protein 6.5 Albumin 2.0 L Globulin 4.5 H Albumin/Globulin Ratio 0.4 L Triglycerides Urine Color Urine Clarity Urine pH Ur Specific [place] Urine Protein Urine Glucose (UA) Urine Ketones Urine Occult Blood Urine Nitrite Urine Bilirubin Urine Urobilinogen Ur Leukocyte Esterase Urine RBC Urine WBC Ur Squamous Epith Cells Amorphous Sediment Urine Bacteria Fine Granular Casts Coarse Granular Casts Urine Mucus Hep Bs Antigen Hep Bs Antibody Hep B Core Total Ab MRSA (PCR) POC Glucose Crossmatch 12/15/18 12/15/18 12/15/18 05:35 11:38 12:20 WBC RBC Hgb Hct MCV MCH MCHC RDW Std Deviation RDW Coeff of Judi Plt Count MPV Immature Gran % (Auto) Neut % (Auto) Lymph % (Auto) [place] % (Auto) Eos % (Auto) Baso % (Auto) Absolute Neuts (auto) Absolute Lymphs (auto) Nucleated RBC % Differential Comment Platelet Estimate PT INR APTT Specimen Type Sample Site pH Bicarbonate Actual POC Total CO2 Base Excess O2 Saturation O2 % ABG pCO2 ABG pO2 Martell Test Respiration Rate O2 Delivery Device Minute Volume Vent Mode Tidal Volume POC PEEP EPAP Blood Gas Notified Whom Blood Gas Notified Time Sodium Potassium Chloride Carbon Dioxide Anion Gap BUN Creatinine Estim Creat Clear Calc Est GFR (MDRD) Af Amer Est GFR (MDRD) Non-Af BUN/Creatinine Ratio Glucose Lactic Acid Calcium Phosphorus Magnesium Total Bilirubin AST ALT Alkaline Phosphatase Total Creatine Kinase Total Protein Albumin Globulin Albumin/Globulin Ratio Triglycerides Urine Color Urine Clarity Urine pH Ur Specific [place] Urine Protein Urine Glucose (UA) Urine Ketones Urine Occult Blood Urine Nitrite Urine Bilirubin Urine Urobilinogen Ur Leukocyte Esterase Urine RBC Urine WBC Ur Squamous Epith Cells Amorphous Sediment Urine Bacteria Fine Granular Casts Coarse Granular Casts Urine Mucus Hep Bs Antigen Hep Bs Antibody Hep B Core Total Ab Pending MRSA (PCR) POC Glucose 204 H 220 H Crossmatch 12/15/18 12/15/18 12/16/18 12:20 17:09 03:40 WBC 11.0 RBC 3.29 L Hgb 9.4 L Hct 30.1 L MCV 91.5 MCH 28.6 MCHC 31.2 L RDW Std Deviation 48.7 H RDW Coeff of Judi 14.4 Plt Count 302 MPV 9.6 Immature Gran % (Auto) 2.800 H Neut % (Auto) 89.1 H Lymph % (Auto) 3.2 L [place] % (Auto) 4.8 Eos % (Auto) 0.0 Baso % (Auto) 0.1 Absolute Neuts (auto) 9.8 H Absolute Lymphs (auto) 0.35 L Nucleated RBC % 0.2 Differential Comment SCANNED Platelet Estimate MOD INC PT INR APTT Specimen Type Sample Site pH Bicarbonate Actual POC Total CO2 Base Excess O2 Saturation O2 % ABG pCO2 ABG pO2 Martell Test Respiration Rate O2 Delivery Device Minute Volume Vent Mode Tidal Volume POC PEEP EPAP Blood Gas Notified Whom Blood Gas Notified Time Sodium Potassium Chloride Carbon Dioxide Anion Gap BUN Creatinine Estim Creat Clear Calc Est GFR (MDRD) Af Amer Est GFR (MDRD) Non-Af BUN/Creatinine Ratio Glucose Lactic Acid Calcium Phosphorus Magnesium Total Bilirubin AST ALT Alkaline Phosphatase Total Creatine Kinase Total Protein Albumin Globulin Albumin/Globulin Ratio Triglycerides Urine Color Urine Clarity Urine pH Ur Specific [place] Urine Protein Urine Glucose (UA) Urine Ketones Urine Occult Blood Urine Nitrite Urine Bilirubin Urine Urobilinogen Ur Leukocyte Esterase Urine RBC Urine WBC Ur Squamous Epith Cells Amorphous Sediment Urine Bacteria Fine Granular Casts Coarse Granular Casts Urine Mucus Hep Bs Antigen Non-Reactive Hep Bs Antibody Non-Reactive Hep B Core Total Ab MRSA (PCR) POC Glucose 215 H Crossmatch 12/16/18 12/16/18 03:40 05:13 WBC RBC Hgb Hct MCV MCH MCHC RDW Std Deviation RDW Coeff of Judi Plt Count MPV Immature Gran % (Auto) Neut % (Auto) Lymph % (Auto) [place] % (Auto) Eos % (Auto) Baso % (Auto) Absolute Neuts (auto) Absolute Lymphs (auto) Nucleated RBC % Differential Comment Platelet Estimate PT INR APTT Specimen Type Sample Site pH Bicarbonate Actual POC Total CO2 Base Excess O2 Saturation O2 % ABG pCO2 ABG pO2 Martell Test Respiration Rate O2 Delivery Device Minute Volume Vent Mode Tidal Volume POC PEEP EPAP Blood Gas Notified Whom Blood Gas Notified Time Sodium 138 Potassium 5.8 H Chloride 99 Carbon Dioxide 20.0 L Anion Gap BUN 103 H* Creatinine 7.74 H* Estim Creat Clear Calc 9.26 Est GFR (MDRD) Af Amer 9 L Est GFR (MDRD) Non-Af 7 L BUN/Creatinine Ratio 13.3 Glucose 343 H Lactic Acid Calcium 7.7 L Phosphorus 11.7 H* Magnesium Total Bilirubin AST ALT Alkaline Phosphatase Total Creatine Kinase Total Protein Albumin 2.1 L Globulin Albumin/Globulin Ratio Triglycerides Urine Color Urine Clarity Urine pH Ur Specific [place] Urine Protein Urine Glucose (UA) Urine Ketones Urine Occult Blood Urine Nitrite Urine Bilirubin Urine Urobilinogen Ur Leukocyte Esterase Urine RBC Urine WBC Ur Squamous Epith Cells Amorphous Sediment Urine Bacteria Fine Granular Casts Coarse Granular Casts Urine Mucus Hep Bs Antigen Hep Bs Antibody Hep B Core Total Ab MRSA (PCR) POC Glucose 323 H Crossmatch Microbiology 12/12/18 13:54 Sputum, Expectorated/Coughed Gram Stain - Final 12/12/18 13:54 Sputum, Expectorated/Coughed Respiratory Culture - Final Mixed normal respiratory devon. No Streptococcus pneumoniae, beta-hemolytic Streptococcus or Staphylococcus aureus isolated. Medical Necessity - Tobacco Use Smoking Status: Former smoker Tobacco Use: Non-smoker Assessment/Plan All Active Problems (Last Reviewed 11/05/18 @ 10:26 by Pili May) Nephrotic range proteinuria (Acute) CHF exacerbation (Acute) Chest pain (Acute) EDGARDO (acute kidney injury) (Acute) Choledocholithiasis with acute cholecystitis (Acute) Abnormal LFTs (Acute) RECOMMENDATIONS: 1. Resume titrating propofol to maintain a RASS of -1 to 1. 2. Wean FiO2 and PEEP to maintain oxygen saturations at or above 90%. 3. Continue hemodialysis with fluid removal per nephrology recommendations. 4. Continue broad-spectrum antimicrobial therapy. 5. Continue systemic corticosteroids. 6. Continue appropriate ICU prophylaxis 7. Increase basal insulin regimen and continue sliding scale coverage. IMPRESSIONS: 1. Acute hypoxemic respiratory failure While initially felt to be secondary to decompensated heart failure, the radiographic findings noted on chest x-ray is more concerning for multilobar pneumonia. The patient has been diuresed with worsening renal function and no significant improvement in his respiratory status. Diuretics were subsequently discontinued and the patient was started on broad-spectrum antimicrobial therapy. Despite the aforementioned, the patient continued to decompensate from a respiratory perspective and subsequently had to be intubated. His respiratory failure is likely multifactorial in etiology with heart failure and pulmonary infectious/inflammatory disorder contributing. The patient will remain on broad-spectrum antimicrobial therapy and IV steroids as ordered. Continue volume removal with hemodialysis as tolerated. Continue to wean FiO2 and PEEP to maintain oxygen saturations at or above 90%. 2. Coronary artery disease/heart failure with preserved ejection fraction/valvular heart disease The patient does not appear to be overtly volume overloaded at this time. Cardiology is currently following. Continue volume optimization via hemodialysis. 3. Acute on chronic kidney disease Suspect prerenal etiology due to use of diuretics, coupled with chronic medical renal disease. Nephrology is following. 4. Chronic anemia The patient has baseline chronic anemia. In his setting of coronary artery disease, the patient was transfused packed red blood cells. At the current time, there are no signs of overt blood loss. There is no indication for transfusion of additional blood products. 5. Obstructive sleep apnea Resume nocturnal Pap therapy upon extubation. Given the patient's weight gain over the last year, he may require a re-titration study and subsequent increase in his pressure support. This can be completed on an outpatient basis. 6. Diabetes mellitus/hypertension/hyperlipidemia/anxiety/depression/CODE STATUS Complicates care, management, recovery and prognosis. CODE STATUS- FULL CODE. TIME: 40 minutes of critical care time, independent of procedures, was spent addressing the patient's acute hypoxemic respiratory failure, decompensated heart failure, acute on chronic kidney disease, anemia, obstructive sleep apnea, review of all data and collaboration with care team. ([id number]) Code Visit 9xxxx: [id number] Critical care first hour
[2018-12-16] MEDS: Propofol 10MG/Ml 1,000 MG/100 ML Bottle 7.5 MG CONT INF (06:45)
[2018-12-16] MEDS: Ipratropium/Albuterol Sulfate 3 ML AMPUL.NEB INHALATION ×3 (06:45→18:31)
[2018-12-16] MEDS: fentaNYL drip 100 ML 15 MCG IV ×2 (06:46→13:42)
--- NOTE | 2018-12-16 07:21 | PN_ITS ---
Patient Problems: Active and Suspected Problems (Last Reviewed 11/05/18 @ 10:26 by Pili May) Nephrotic range proteinuria (Acute) Chest pain (Acute) EDGARDO (acute kidney injury) (Acute) Subjective: Patient was seen and examined. Remains intubated. Oxygen requirements have decreased to PEEP. Had dialysis today; 2.5L of fluid was removed. Objective: Physical exam: General: - - Intubated, sedated, on propofol and fentanyl, on mechanical ventilator, PEEP of 8, obese HEENT: Atraumatic, PERRLA Oral: Moist Mucosa Neck: Supple Lungs: Clear to auscultation, Normal air movement Cardiovascular: Regular rate, Regular Rhythm, Normal S1, Normal S2, No murmurs Abdomen: Bowel Sounds Present, Soft, Non Tender, Non-Distended, No Hepato- splenomegaly, Obese Extremities: Edema - +1 bipedal edema Skin: No rashes, No breakdown Musculoskeletal: No Tenderness to Palpation of Joints or Extremities Lymphatic: No Cervical, Supraclavicular, or Inguinal Adenopathy Neurological: Cranial nerves II-XII grossly intact, Neuro grossly intact Psych/Mental Status: Normal Affect, Appropriate Vitals/I&O's: Vital Signs Temp Pulse Resp BP Pulse Ox 98.3 F 89 14 145/69 H 91 12/16/18 04:00 12/16/18 07:00 12/16/18 07:00 12/16/18 07:00 12/16/18 07:00 Oxygen Flow Rate (L/min) 5 Oxygen Delivery Method Mechanical Ventilator Weight: 125.7 kg Body Mass Index (BMI) 39.4 Finger Stick Blood Glucose 269 Intake and Output for Last 24 Hours 12/14/18 12/15/18 12/16/18 23:59 23:59 23:59 Intake Total 1554.53 / 1554.53 1751.05 / 1830.51 263.51 / 263.51 Output Total 1700 / 1820 2029 / 2034 5 Balance -145.47 / -265.47 -278.95 / -204.49 258.51 / 258.51 Microbiology Past 72 Hours 12/12/18 13:54 Sputum, Expectorated/Coughed Gram Stain - Final 12/12/18 13:54 Sputum, Expectorated/Coughed Respiratory Culture - Final Mixed normal respiratory devon. No Streptococcus pneumoniae, beta-hemolytic Streptococcus or Staphylococcus aureus isolated. 12/13/18 09:50 Stool Stool Occult Blood (JOSE RAMON) - Final Occult Blood Positive 12/11/18 15:20 Urine, Clean Catch Urine Culture - Final Mixed Gram Positive Organisms Laboratory Results 12/12/18 13:30: Crossmatch See Detail 12/15/18 11:38: POC Glucose 220 H 12/15/18 12:20: Hep B Core Total Ab Pending 12/15/18 12:20: Hep Bs Antigen Non-Reactive, Hep Bs Antibody Non-Reactive 12/15/18 17:09: POC Glucose 215 H 12/16/18 03:40: WBC 11.0, RBC 3.29 L, Hgb 9.4 L, Hct 30.1 L, MCV 91.5, MCH 28.6, MCHC 31.2 L, RDW Std Deviation 48.7 H, RDW Coeff of Judi 14.4, Plt Count 302, MPV 9.6, Immature Gran % (Auto) 2.800 H, Neut % (Auto) 89.1 H, Lymph % (Auto) 3.2 L, [place] % (Auto) 4.8, Eos % (Auto) 0.0, Baso % (Auto) 0.1, Absolute Neuts (auto) 9.8 H, Absolute Lymphs (auto) 0.35 L, Nucleated RBC % 0.2, Differential Comment SCANNED, Platelet Estimate MOD INC 12/16/18 03:40: Sodium 138, Potassium 5.8 H, Chloride 99, Carbon Dioxide 20.0 L, BUN 103 H*, Creatinine 7.74 H*, Estim Creat Clear Calc 9.26, Est GFR (MDRD) Af Amer 9 L, Est GFR (MDRD) Non-Af 7 L, BUN/Creatinine Ratio 13.3, Glucose 343 H, Calcium 7.7 L, Phosphorus 11.7 H*, Albumin 2.1 L 12/16/18 05:13: POC Glucose 323 H Current Medications Acetaminophen (Tylenol Liquid) 650 mg GT Q6H PRN PRN PRN Reason: Non-cardiac pain (mod-severe) Al Hydroxide/Mg Hydroxide (Mylanta Ii) 15 - 30 ml GT Q4H PRN PRN PRN Reason: INDIGESTION Albuterol Sulfate (Ventolin Aerosols) 2.5 mg INHALATION Q2H PRN PRN PRN Reason: dyspnea, wheezing Albuterol/Ipratropium (Duoneb) 3 ml INHALATION Q6HWA.RT [facility] Last Admin: 12/16/18 06:45 Dose: 3 ml Documented by: Allopurinol (Zyloprim) 100 mg GT DAILY [facility] Last Admin: 12/15/18 10:18 Dose: 100 mg Documented by: Aspirin (Aspirin, Baby) 81 mg GT DAILY@0800 [facility] Last Admin: 12/15/18 10:16 Dose: 81 mg Documented by: Chlorhexidine Gluconate () 15 ml PO BID [facility] Last Admin: 12/15/18 21:54 Dose: 15 ml Documented by: Chlorhexidine Gluconate () 1 each TOPICAL DAILY [facility] Last Admin: 12/15/18 11:40 Dose: 1 each Documented by: Dextrose (D50w Syringe) 0 gm IV X1 PRN; Protocol PRN Reason: Hypoglycemia Glucagon () 1 mg IM .X1 PRN PRN Reason: Hypoglycemia Heparin Sodium (Porcine) (Heparin Na) 5,000 unit SC Q12 [facility] Last Admin: 12/15/18 21:55 Dose: 5,000 unit Documented by: Hydralazine HCl (Apresoline Iv) 10 mg IV Q4H PRN PRN PRN Reason: SBP > 160 Sodium Chloride () 250 mls @ 15 mls/hr IV .[id number] PRN PRN Reason: SALINE FLUSH Last Infusion: 12/16/18 05:17 Dose: 15 mls/hr Documented by: Piperacillin Sod/Tazobactam (Sod 3.375 gm/ Sodium Chloride) 50 mls @ 12.5 mls/hr IV Q12 [facility] Last Infusion: 12/16/18 02:30 Dose: Infused Documented by: Pantoprazole Sodium 40 mg/ (Sodium Chloride) 110 mls @ 330 mls/hr IV Q12 [facility] Last Infusion: 12/15/18 22:23 Dose: Infused Documented by: Propofol (Diprivan) 1,000 mg in 100 mls @ 7.542 mls/hr CONT INF .Q12H [facility]; Protocol Last Titration: 12/16/18 07:00 Dose: 10 mcg/kg/min, 7.5 mls/hr Documented by: Fentanyl () 100 mls @ 20 mls/hr IV UD [facility]; Protocol Last Titration: 12/16/18 07:00 Dose: 150 mcg/hr, 15 mls/hr Documented by: Insulin Human Lispro (Humalog Kwikpen (Bkc)) 0 unit SC Q6 [facility]; Protocol Last Admin: 12/16/18 05:14 Dose: 5 units Documented by: Magnesium Hydroxide (Milk Of Magnesia) 30 ml GT DAILY PRN PRN Reason: Constipation Methylprednisolone (Solu-Medrol) 40 mg IV Q8 [facility] Last Admin: 12/16/18 05:14 Dose: 40 mg Documented by: Nitroglycerin (Nitrostat) 0.4 mg SUBLINGUAL Q5M PRN PRN Reason: CARDIAC/CHEST PAIN Ondansetron HCl (Zofran) 4 mg IV Q8H PRN PRN PRN Reason: NAUSEA/VOMITING Pharmacy Profile Note () 1 each NOTE X1 PRN PRN Reason: NOT SPECIFIED Polyethylene Glycol (Miralax) 17 gm GT DAILY PRN PRN PRN Reason: CONSTIPATION Last Admin: 12/15/18 10:17 Dose: 17 gm Documented by: Senna/Docusate Sodium (Senokot-S, Christina-Colace) 2 tablet GT BID [facility] Last Admin: 12/15/18 21:55 Dose: 2 tablet Documented by: Sodium Chloride () 10 - 40 ml IV UD PRN PRN Reason: SALINE FLUSH Last Admin: 12/15/18 14:35 Dose: 10 ml Documented by: Medical Necessity - Tobacco Use Smoking Status: Former smoker Tobacco Use: Non-smoker Assessment/Plan All Active Problems (Last Reviewed 11/05/18 @ 10:26 by Pili May) Nephrotic range proteinuria (Acute) CHF exacerbation (Acute) Chest pain (Acute) EDGARDO (acute kidney injury) (Acute) Choledocholithiasis with acute cholecystitis (Acute) Abnormal LFTs (Acute) 68-year-old male with past medical history of CKD stage IV, type II DM, CAD status post CABG, status post stents, hypertension, DASHA who was admitted on 12/10/18 with progressive shortness of breath and chest discomfort. His management has been that of acute decompensated CHF. He was on IV Lasix. Patient got progressively short of breath and was intubated on 12/14/18. He has since been on a mechanical ventilator. His kidney function has also gotten progressively worse. Nephrology has been consulted. Dialysis catheter has been putting today. Plan is for dialysis today. 1. Acute hypoxic respiratory failure secondary to multilobar CAP, secondary to suspected gram-positive organisms, Urine streptococcal and Legionella antigen as well as sputum culture has been negative. Status post intubation, student advisor following, will continue per recommendation, continue breathing treatments 2. Multilobular CAP, secondary to suspected gram-positive organism, Urine Legionella, streptococcal antigen negative, respiratory panel negative, sputum cultures negative Continue on IV Zosyn for now(day #5) 3. 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 4.Chronic diastolic CHF, acute CHF ruled out, initially was on Lasix, off Lasix account of worsening renal function, fluid removal at dialysis. 5. Chest pain, known CAD at this post CABG, PCI stable, medical management for now, cardiac cath later on if patient recovers On aspirin, metoprolol 6.Nonrheumatic aortic valve stenosis, moderate-severe, will need to follow-up with cardiology in the outpatient 7.Type 2 diabetes mellitus, blood sugars are fairly controlled, will continue blood sugar checks with insulin sliding scale 8.Hypertension, controlled, continue home amlodipine, metoprolol, isosorbide regimen. 9. Acute on Chronic normocytic anemia secondary to iron deficiency likely secondary to chronic GI loss, Status post 2 unit PRBC. Hb is stable at 9.3 Stool positive for occult blood, on IV PPI, will hold fluoxetine 10. DVT PPx - Heparin SC Code Visit Inpatient E&M: 53789 Subs Hosp L2
[2018-12-16 08:50] LABS: Bedside Glucose 301 mg/dL (70-110)
[2018-12-16 08:50] LABS: Bedside Glucose 316 mg/dL (70-110)
[2018-12-16] MEDS: Aspirin 81 MG TAB.CHEW GT (08:52)
[2018-12-16] MEDS: Senna/Docusate Sodium 1 Tablet 2 TABLET GT ×2 (08:52→21:25)
[2018-12-16] MEDS: Heparin Injection (Vial) 5,000 UNIT/ML VIAL 5000 UNIT SC ×2 (08:52→21:25)
[2018-12-16] MEDS: CHLORHEXIDINE GLUC 2% CLOTH 1 EACH TOWELETTE TOPICAL (08:52)
[2018-12-16] MEDS: Allopurinol 100 MG Tablet GT (08:53)
[2018-12-16] MEDS: Chlorhexidine 15 ML PO ×2 (08:53→21:25)
[2018-12-16] MEDS: Polyethylene Glycol 3350 17 GM PACKET GT (08:57)
--- NOTE | 2018-12-16 10:31 | PCM.PN.REN ---
Patient Problems: Active and Suspected Problems (Last Reviewed 11/05/18 @ 10:26 by Pili May) Nephrotic range proteinuria (Acute) Chest pain (Acute) EDGARDO (acute kidney injury) (Acute) Subjective: Pt remains in ICU, intubated and sedated Tolerated HD session well yesterday with 2 L UF FIO2 improved to 40% Not on pressors Seen during the 2nd HD session today Cannot do ROS - Physical Exam General: - - sedated and intubated. NAD HEENT: Atraumatic Oral: - - ET in place Neck: Supple, No JVD Lungs: Clear to auscultation, Normal air movement, No rhonchi, No wheeze, - - On ACM vent. FIO2 40% Cardiovascular: Regular rate, Regular Rhythm, Normal S1 Abdomen: Bowel Sounds Present, Soft, Hypoactive Bowel Sounds Skin: No rashes Musculoskeletal: No Muscle Wasting Lymphatic: No Cervical, Supraclavicular, or Inguinal Adenopathy Neurological: - - sedated Vital Signs Temp Pulse Resp BP Pulse Ox 98.0 F 78 17 140/70 H 94 12/16/18 10:00 12/16/18 10:00 12/16/18 10:00 12/16/18 10:00 12/16/18 10:00 Oxygen Flow Rate (L/min) 5 Oxygen Delivery Method Mechanical Ventilator Weight: 125.7 kg Body Mass Index (BMI) 39.4 Finger Stick Blood Glucose 269 Intake and Output for Last 24 Hours 12/14/18 12/15/18 12/16/18 23:59 23:59 23:59 Intake Total 1554.53 / 1554.53 1751.05 / 1830.51 624.80 / 624.80 Output Total 1700 / 1820 2029 / 2034 355 / 355 Balance -145.47 / -265.47 -278.95 / -204.49 269.80 / 269.80 Microbiology Past 72 Hours 12/12/18 13:54 Gram Stain - Final Sputum, Expectorated/Coughed Respiratory Culture - Final Mixed normal respiratory devon. No Streptococcus pneumoniae, beta-hemolytic Streptococcus or Staphylococcus aureus isolated. 12/13/18 09:50 Stool Occult Blood (JOSE RAMON) - Final Stool Occult Blood Positive 12/11/18 15:20 Urine Culture - Final Urine, Clean Catch Mixed Gram Positive Organisms Laboratory Tests Past 24 Hrs 12/12/18 12/15/18 12/15/18 13:30 12:20 12:20 WBC RBC Hgb Hct MCV MCH MCHC RDW Std Deviation RDW Coeff of Judi Plt Count MPV Immature Gran % (Auto) Neut % (Auto) Lymph % (Auto) [place] % (Auto) Eos % (Auto) Baso % (Auto) Absolute Neuts (auto) Absolute Lymphs (auto) Nucleated RBC % Differential Comment Platelet Estimate Sodium Potassium Chloride Carbon Dioxide BUN Creatinine Estim Creat Clear Calc Est GFR (MDRD) Af Amer Est GFR (MDRD) Non-Af BUN/Creatinine Ratio Glucose Calcium Phosphorus Albumin Hep Bs Antigen Non-Reactive Hep Bs Antibody Non-Reactive Hep B Core Total Ab Pending Crossmatch See Detail 12/16/18 12/16/18 03:40 03:40 WBC 11.0 RBC 3.29 L Hgb 9.4 L Hct 30.1 L MCV 91.5 MCH 28.6 MCHC 31.2 L RDW Std Deviation 48.7 H RDW Coeff of Judi 14.4 Plt Count 302 MPV 9.6 Immature Gran % (Auto) 2.800 H Neut % (Auto) 89.1 H Lymph % (Auto) 3.2 L Nance % (Auto) 4.8 Eos % (Auto) 0.0 Baso % (Auto) 0.1 Absolute Neuts (auto) 9.8 H Absolute Lymphs (auto) 0.35 L Nucleated RBC % 0.2 Differential Comment SCANNED Platelet Estimate MOD INC Sodium 138 Potassium 5.8 H Chloride 99 Carbon Dioxide 20.0 L BUN 103 H* Creatinine 7.74 H* Estim Creat Clear Calc 9.26 Est GFR (MDRD) Af Amer 9 L Est GFR (MDRD) Non-Af 7 L BUN/Creatinine Ratio 13.3 Glucose 343 H Calcium 7.7 L Phosphorus 11.7 H* Albumin 2.1 L Hep Bs Antigen Hep Bs Antibody Hep B Core Total Ab Crossmatch POC Glucose 12/16/18 12/15/18 12/15/18 05:13 23:52 23:51 POC Glucose 323 H 316 H 301 H 12/15/18 12/15/18 17:09 11:38 POC Glucose 215 H 220 H Medical Necessity - Tobacco Use Smoking Status: Former smoker Tobacco Use: Non-smoker Assessment/Plan All Active Problems (Last Reviewed 11/05/18 @ 10:26 by Pili May) Nephrotic range proteinuria (Acute) CHF exacerbation (Acute) Chest pain (Acute) EDGARDO (acute kidney injury) (Acute) Choledocholithiasis with acute cholecystitis (Acute) Abnormal LFTs (Acute) 1- EDGARDO on CKD stage 4. Baseline Cr ~ 2.6-2.7 mg/dL from most probably DNP. Pt has significant proteinuria. Pro/Cr was a 11 mg/mg. EDGARDO is from ATN related to sepsis. Pt is now HD dependent for metabolic and fluid support. HD initiated on 12/15 Seen during the 2nd HD session today : BQ 300 DQ 600 UF 2.5 L No recovery of kidney function. remains anuric and significant BUN and Cr elevation Keep MAP > 65. Avoid IV contrast Check renal function in am. Will evaluate the need of HD tomorrow Will continue to monitor for kidney function recovery. continue accurate I/O with daily renal function panel 2- Hyperkalemia : Improved with HD. K is 5.8. HD session today with 1 K for the 1st hour and then 2K 3-High anion gap acidosis. from EDGARDO. Improved with HD 4- Hyperphosphatemia: from EDGARDO. P increased despite HD. check CPK since the patient on propofol to r/o rhabdo 5- ARF from pneumonia and ARDS Vs CHF Intubated. Required FIO2 improved. vent support and Abx as per ICU team UF goal 2.5 L today Thank you for allowing me to participate in Mr. Gardner's care Renal team will continue to follow Please call if any question at [phone] d/w Dr. Franklin Joyce MD
[2018-12-16 10:40] LABS: Hepatitis B Core Ab Total Negative (Negative)
[2018-12-16] MEDS: Heparin 10,000 UNITS/10 ML Vial 1000 UNITS IV (12:39)
[2018-12-16 12:50] LABS: Bedside Glucose 231 mg/dL (70-110)
--- NOTE | 2018-12-16 12:52 | DIALYSIS ---
HD x 3 hours complete. Tolerated tx well. Ran on 1k bath for 1 hour. 2k bath for 2 hours. UF of 2500ml . Used right IJ catheter. Catheter closed with heparin per fill volume. Report was given to MARCO A Sims.
[2018-12-16] MEDS: Propofol 10MG/Ml 1,000 MG/100 ML Bottle 11.3 MG CONT INF ×2 (13:43→21:03)
[2018-12-16] MEDS: 0.9% NaCl Peripheral Flush Adult/Peds IV (13:43)
--- NOTE | 2018-12-16 15:10 | CHAPLAIN ---
Type of Pastoral Visit ___ Initial Visit _x__ Follow-up Visit ___ On-call Visit ___ General Patient Visit ___ Spiritual Assessment ___ Family Conference ___ Bereavement ___ Rapid Response ___ Code Blue ___ Other (describe below) Pastoral Care Referral From ___ Patient ___ Family _x__ Nurse ___ Physician ___ Hydroponics Worker ___ Nuclear Pharmacist ___ Other (describe below) Sacrament/Intervention ___ Active listening ___ Anointing ___ Advent ___ Bereavement ___ Communion ___ Lilli exploration ___ ___ Life review _x__ Prayer ___ Reconciliation ___ Sacrament of Sick _x__ Supportive presence ___ Wedding ___ Other (describe below) Pastoral Comments patient was seen previously in PCU; pt is now intubated but awake; spoke calmly and supportively to pt and offered prayer
[2018-12-16 17:40] LABS: Bedside Glucose 314 mg/dL (70-110)
[2018-12-16] MEDS: 0.9% NaCl IVPB Med Flush (250 mL) 15 ML IV (21:44)
[2018-12-16] MEDS: fentaNYL drip 100 ML 12.5 MCG IV (22:17)
[2018-12-17] VITALS (41 sets, daily range): BP systolic 135–191; BP diastolic 63–97; PULSE 83–139; RESP 12–26; TEMP 36.6–37; O2SAT 21–99
[2018-12-17 00:06] LABS: Bedside Glucose 357 mg/dL (70-110)
[2018-12-17] MEDS: hydrALAZINE 20 MG/ML Vial 10 MG IV ×3 (01:07→20:05)
[2018-12-17] MEDS: 0.9% NaCl Peripheral Flush Adult/Peds IV ×4 (01:07→20:11)
[2018-12-17] MEDS: CHLORHEXIDINE GLUC 2% CLOTH 1 EACH TOWELETTE TOPICAL (02:33)
[2018-12-17 04:36] LABS: Absolute Neutrophil Count 8.7 X10^3/uL (2.0-7.7); Basophil# 0.02 X10^3/uL; Basophil% 0.2 % (0-1); Hematocrit 31.1 % (40-54); Hemoglobin 10.2 g/dL (13.0-16.5); Lymphocyte % 4.9 % (19-41); Mean Corp Hgb Conc 32.8 g/dL (32-36); Mean Corpuscular Hgb 28.6 pg (27.0-32.0); Mean Corpuscular Volume 87.1 fL (80-94); Mean Platelet Vol. 9.2 fl (6.2-12.0); Monocyte# 0.69 X10^3/uL; Monocyte% 6.7 % (0-10); NRBC Flagged by Analyzer 0.2 % (0-5); Neutrophil # 8.68 X10^3/uL (2.7-7.7); Neutrophil % 84.3 % (47-70); POSITIVE DIFFERENTIAL YES; Platelet Count 317 K/mm3 (150-450); RBC Distribution Width CV 14.5 % (11.6-14.6); Red Blood Count 3.57 M/mm3 (4.6-6.2); White Blood Count 10.3 K/mm3 (4.4-11.0)
[2018-12-17 04:44] LABS: Differential Indicated SCAN CRITERIA MET
[2018-12-17] MEDS: TITRATION PARAMETER CHANGE 1 EACH IV (05:03)
[2018-12-17 05:06] LABS: Albumin, Serum 2.3 g/dL (3.2-5.0); BUN 91 mg/dL (7-18); BUN/Creat Ratio 13.5 RATIO (10-20); Calcium,Total 7.4 mg/dL (8.5-10.1); Chloride 97 mmol/L (98-107); Creatinine, Serum 6.76 mg/dL (0.70-1.30); EST Glomerular Filtration Rate 9 mL/min (>60); Est Glom Filt Rate - Afr Amer 11 mL/min (>60); Glucose 383 mg/dL (74-106); Phosphorus 8.7 mg/dL (2.5-4.9); Potassium 5.3 mmol/L (3.5-5.1); Sodium Level 137 mmol/L (136-145)
[2018-12-17] MEDS: Insulin Lispro 100 UNIT/ML INSULN.PEN SC ×2 (05:10→12:46)
[2018-12-17 05:19] LABS: Differential Comment SCANNED
[2018-12-17 05:21] LABS: Bedside Glucose 377 mg/dL (70-110)
[2018-12-17] MEDS: Ipratropium/Albuterol Sulfate 3 ML AMPUL.NEB INHALATION ×2 (06:36→18:39)
--- NOTE | 2018-12-17 06:53 | PCM.PN.INT ---
Subjective: The patient was seen and examined at the bedside this morning. Events from the last 24 hours have been reviewed. The patient is currently afebrile, hemodynamically stable and maintaining appropriate oxygen saturations on spontaneous mode of mechanical ventilation with an FiO2 requirement of 40% and PEEP of 5. The patient has improved over the last 24 hours from a respiratory perspective following dialysis yesterday with 2.5 L of fluid removed. The patient is currently alert and appropriately interactive. Urine output is improving. Blood sugars remain elevated. Objective: The patient's most recent lab work, culture data and imaging studies have all been personally reviewed. CT chest without contrast dated December 14 revealed bilateral groundglass changes with consolidation with subpleural sparing along with bilateral pleural effusions. Surface echocardiogram revealed normal LV size with concentric LVH and an ejection fraction of 65%. There was moderate to severe aortic stenosis. Strep and urine Legionella antigens were both negative. Respiratory viral panel was negative. Expectorated sputum culture appears to be normal respiratory devon. General: - - Remains intubated and mechanically ventilated. Currently tolerating spontaneous mode of mechanical ventilation. HEENT: Atraumatic, PERRLA, Normocephalic Oral: Moist Mucosa, - - Endotracheal and OG tubes remain in place. Neck: Supple, No Nodes, Trachea Midline, - - Right IJ temporary hemodialysis catheter in place Lungs: No rhonchi, No wheeze, No rales, Diminished Cardiovascular: Regular rate, Regular Rhythm, Normal S1, Normal S2, Murmur Abdomen: Bowel Sounds Present, Soft, Non Tender, Obese Extremities: No clubbing, No cyanosis, Edema Skin: No breakdown Musculoskeletal: No Tenderness to Palpation of Joints or Extremities Lymphatic: No Cervical, Supraclavicular, or Inguinal Adenopathy Neurological: - - No focal neurological deficits. The patient is alert and following commands appropriately. Moves all extremities spontaneously. Vital Signs Temp Pulse Resp BP Pulse Ox 98.0 F 104 H 15 177/76 H 97 12/17/18 04:00 12/17/18 06:39 12/17/18 06:39 12/17/18 06:00 12/17/18 06:37 Oxygen Flow Rate (L/min) 5 Oxygen Delivery Method Mechanical Ventilator Weight: 266 lb 8.622 oz Body Mass Index (BMI) 39.4 Finger Stick Blood Glucose 269 Intake and Output for Last 24 Hours 12/15/18 12/16/1819 23:59 23:59 23:59 Intake Total 1751.05 / 1830.51 1356.04 / 1356.04 155.57 / 155.57 Output Total 2029 4105 / 4105 1100 / 1100 Balance -278.95 / -204.49 -2748.96 / -2748.96 -944.43 / -944.43 Labs (Last 48 Hours) 12/12/18 12/15/18 12/15/18 13:30 11:38 12:20 WBC RBC Hgb Hct MCV MCH MCHC RDW Std Deviation RDW Coeff of Judi Plt Count MPV Immature Gran % (Auto) Neut % (Auto) Lymph % (Auto) [place] % (Auto) Eos % (Auto) Baso % (Auto) Absolute Neuts (auto) Absolute Lymphs (auto) Nucleated RBC % Differential Comment Platelet Estimate Sodium Potassium Chloride Carbon Dioxide BUN Creatinine Estim Creat Clear Calc Est GFR (MDRD) Af Amer Est GFR (MDRD) Non-Af BUN/Creatinine Ratio Glucose Calcium Phosphorus Albumin Hep Bs Antigen Hep Bs Antibody Hep B Core Total Ab Negative POC Glucose 220 H Crossmatch See Detail 12/15/18 12/15/18 12/15/18 12:20 17:09 23:51 WBC RBC Hgb Hct MCV MCH MCHC RDW Std Deviation RDW Coeff of Judi Plt Count MPV Immature Gran % (Auto) Neut % (Auto) Lymph % (Auto) [place] % (Auto) Eos % (Auto) Baso % (Auto) Absolute Neuts (auto) Absolute Lymphs (auto) Nucleated RBC % Differential Comment Platelet Estimate Sodium Potassium Chloride Carbon Dioxide BUN Creatinine Estim Creat Clear Calc Est GFR (MDRD) Af Amer Est GFR (MDRD) Non-Af BUN/Creatinine Ratio Glucose Calcium Phosphorus Albumin Hep Bs Antigen Non-Reactive Hep Bs Antibody Non-Reactive Hep B Core Total Ab POC Glucose 215 H 301 H Crossmatch 12/15/18 12/16/18 12/16/18 23:52 03:40 03:40 WBC 11.0 RBC 3.29 L Hgb 9.4 L Hct 30.1 L MCV 91.5 MCH 28.6 MCHC 31.2 L RDW Std Deviation 48.7 H RDW Coeff of Judi 14.4 Plt Count 302 MPV 9.6 Immature Gran % (Auto) 2.800 H Neut % (Auto) 89.1 H Lymph % (Auto) 3.2 L [place] % (Auto) 4.8 Eos % (Auto) 0.0 Baso % (Auto) 0.1 Absolute Neuts (auto) 9.8 H Absolute Lymphs (auto) 0.35 L Nucleated RBC % 0.2 Differential Comment SCANNED Platelet Estimate MOD INC Sodium 138 Potassium 5.8 H Chloride 99 Carbon Dioxide 20.0 L BUN 103 H* Creatinine 7.74 H* Estim Creat Clear Calc 9.26 Est GFR (MDRD) Af Amer 9 L Est GFR (MDRD) Non-Af 7 L BUN/Creatinine Ratio 13.3 Glucose 343 H Calcium 7.7 L Phosphorus 11.7 H* Albumin 2.1 L Hep Bs Antigen Hep Bs Antibody Hep B Core Total Ab POC Glucose 316 H Crossmatch 12/16/18 12/16/18 12/16/18 05:13 12:38 17:31 WBC RBC Hgb Hct MCV MCH MCHC RDW Std Deviation RDW Coeff of Judi Plt Count MPV Immature Gran % (Auto) Neut % (Auto) Lymph % (Auto) [place] % (Auto) Eos % (Auto) Baso % (Auto) Absolute Neuts (auto) Absolute Lymphs (auto) Nucleated RBC % Differential Comment Platelet Estimate Sodium Potassium Chloride Carbon Dioxide BUN Creatinine Estim Creat Clear Calc Est GFR (MDRD) Af Amer Est GFR (MDRD) Non-Af BUN/Creatinine Ratio Glucose Calcium Phosphorus Albumin Hep Bs Antigen Hep Bs Antibody Hep B Core Total Ab POC Glucose 323 H 231 H 314 H Crossmatch 12/16/18 12/17/18 12/17/18 23:48 04:25 04:25 WBC 10.3 RBC 3.57 L Hgb 10.2 L Hct 31.1 L MCV 87.1 MCH 28.6 MCHC 32.8 RDW Std Deviation 46.0 H RDW Coeff of Judi 14.5 Plt Count 317 MPV 9.2 Immature Gran % (Auto) 3.900 H Neut % (Auto) 84.3 H Lymph % (Auto) 4.9 L [place] % (Auto) 6.7 Eos % (Auto) 0.0 Baso % (Auto) 0.2 Absolute Neuts (auto) 8.7 H Absolute Lymphs (auto) 0.50 L Nucleated RBC % 0.2 Differential Comment SCANNED Platelet Estimate Sodium 137 Potassium 5.3 H Chloride 97 L Carbon Dioxide 22.0 BUN 91 H Creatinine 6.76 H Estim Creat Clear Calc 10.60 Est GFR (MDRD) Af Amer 11 L Est GFR (MDRD) Non-Af 9 L BUN/Creatinine Ratio 13.5 Glucose 383 H Calcium 7.4 L Phosphorus 8.7 H Albumin 2.3 L Hep Bs Antigen Hep Bs Antibody Hep B Core Total Ab POC Glucose 357 H Crossmatch 12/17/18 05:07 WBC RBC Hgb Hct MCV MCH MCHC RDW Std Deviation RDW Coeff of Judi Plt Count MPV Immature Gran % (Auto) Neut % (Auto) Lymph % (Auto) [place] % (Auto) Eos % (Auto) Baso % (Auto) Absolute Neuts (auto) Absolute Lymphs (auto) Nucleated RBC % Differential Comment Platelet Estimate Sodium Potassium Chloride Carbon Dioxide BUN Creatinine Estim Creat Clear Calc Est GFR (MDRD) Af Amer Est GFR (MDRD) Non-Af BUN/Creatinine Ratio Glucose Calcium Phosphorus Albumin Hep Bs Antigen Hep Bs Antibody Hep B Core Total Ab POC Glucose 377 H Crossmatch Microbiology 12/12/18 13:54 Sputum, Expectorated/Coughed Gram Stain - Final 12/12/18 13:54 Sputum, Expectorated/Coughed Respiratory Culture - Final Mixed normal respiratory devon. No Streptococcus pneumoniae, beta-hemolytic Streptococcus or Staphylococcus aureus isolated. Clinical Impression(s) from Imaging Studies Chest X-Ray 12/10/18 21:29 IMPRESSION: Bilateral perihilar pneumonia versus pulmonary edema. Electronically Signed: Luis E Fishman DO at 22:01 EDT Tel [phone], Service support , Renal Ultrasound 12/11/18 13:27 IMPRESSION: Bilateral renal cysts. Electronically Signed: Marek Sanchez DO at 21:57 EDT Tel [phone], Service support , Chest X-Ray 12/12/18 05:55 IMPRESSION: Progressive bilateral infiltrates. Electronically Signed: Keagan Long, at 11:07 EDT , Service support , Chest CT 12/14/18 07:36 IMPRESSION: Status post sternotomy mild cardiomegaly coronary artery disease. There is a perihilar pattern of groundglass opacities now some with consolidation with bilateral effusions. Findings are suspicious for pulmonary edema which may be cardiogenic. The differential includes diffuse pneumonia potentially hemorrhage in the appropriate clinical setting. There is reactive appearing lymphadenopathy and several reactive or potentially pathologic right paratracheal lymph nodes. Hepatosplenomegaly. The spleen measures 16 x 10 x 12.4 cm. Electronically Signed: Latia Alejandra MD at 9:20 EDT Tel , Service support , Chest X-Ray 12/14/18 16:15 IMPRESSION: 1. Endotracheal tube with tip terminating 2 cm above the franchesca. 2. Enteric tube terminates in the medial upper stomach with side-port likely at the GE junction. Recommend advancing 5 cm. 3. Worse bilateral airspace disease could represent pneumonia, pulmonary edema or ARDS. Electronically Signed: Duc Gomez MD ([place]) at 16:40 EDT , Service support , KUB X-Ray 12/14/18 19:41 IMPRESSION: Limited study due to patient's body habitus and motion Non-obstructive bowel gas pattern. NG tube with the tip in the stomach at 2055 Reported and signed by: Latia Mathews DO Electronically Signed: Latia Mathews DO at 20:54 EDT Tel , Service support , Chest X-Ray 12/15/18 08:37 IMPRESSION: 1. Right jugular dialysis catheter with tip terminating in lower SVC. 2. Mildly improved bilateral airspace disease could represent pneumonia, pulmonary edema or ARDS. Electronically Signed: Duc Gomez MD ([place]) at 9:21 EDT , Service support , Medical Necessity - Tobacco Use Smoking Status: Former smoker Tobacco Use: Non-smoker Assessment/Plan All Active Problems (Last Reviewed 11/05/18 @ 10:26 by Pili May) Nephrotic range proteinuria (Acute) CHF exacerbation (Acute) Chest pain (Acute) EDGARDO (acute kidney injury) (Acute) Choledocholithiasis with acute cholecystitis (Acute) Abnormal LFTs (Acute) RECOMMENDATIONS: 1. Proceed with a trial of extubation this morning. 2. Once extubated, wean supplemental oxygen to maintain saturations at or above 90%. 3. Resume BiPAP therapy with naps and nightly. 4. Encourage incentive spirometer use and mobilize patient as tolerated. 5. Continue hemodialysis per nephrology recommendations. 6. Continue empiric antimicrobials, bronchodilators and steroids. We will begin to wean IV Solu-Medrol beginning today. 7. Continue PPI therapy. 8. Speech therapy evaluation prior to advancing diet. IMPRESSIONS: 1. Acute hypoxemic respiratory failure While initially felt to be secondary to decompensated heart failure, the radiographic findings noted on chest x-ray was concerning for multilobar pneumonia. The patient had been diuresed with worsening renal function and no significant improvement in his respiratory status. Diuretics were subsequently discontinued and the patient was started on broad-spectrum antimicrobial therapy. Despite the aforementioned, the patient continued to decompensate from a respiratory perspective and subsequently had to be intubated. His respiratory failure is likely multifactorial in etiology with heart failure and pulmonary infectious/inflammatory disorder contributing. The patient will remain on broad-spectrum antimicrobial therapy and IV steroids as ordered. We will begin to wean IV steroids beginning today. Continue hemodialysis per nephrology recommendations. The patient is appropriate for a trial of extubation. Once extubated, supplemental oxygen will be weaned to maintain saturations at or above 90%. 2. Coronary artery disease/heart failure with preserved ejection fraction/valvular heart disease The patient does not appear to be overtly volume overloaded at this time. Cardiology is currently following. Continue volume optimization via hemodialysis. 3. Acute on chronic kidney disease Suspect prerenal etiology due to use of diuretics, coupled with chronic medical renal disease. Nephrology is following. 4. Chronic anemia The patient has baseline chronic anemia. In his setting of coronary artery disease, the patient was transfused packed red blood cells. At the current time, there are no signs of overt blood loss. There is no indication for transfusion of additional blood products. 5. Obstructive sleep apnea Resume nocturnal Pap therapy upon extubation. Given the patient's weight gain over the last year, he may require a re-titration study and subsequent increase in his pressure support. This can be completed on an outpatient basis. 6. Diabetes mellitus/hypertension/hyperlipidemia/anxiety/depression/CODE STATUS Complicates care, management, recovery and prognosis. CODE STATUS- FULL CODE. TIME: 42 minutes of critical care time, independent of procedures, was spent addressing the patient's acute hypoxemic respiratory failure, decompensated heart failure, acute on chronic kidney disease, anemia, obstructive sleep apnea, review of all data and collaboration with care team. ([id number]) Code Visit 9xxxx: [id number] Critical care first hour
--- NOTE | 2018-12-17 07:05 | NURSING ---
Pt extubated at 7am, this RN and Respiratory present at the bedside, pt was then placed on 2LNC and is tolerating well.
--- NOTE | 2018-12-17 07:16 | PCM.PN.HOSP ---
Patient Problems: Active and Suspected Problems (Last Reviewed 11/05/18 @ 10:26 by Pili May) Nephrotic range proteinuria (Acute) Chest pain (Acute) EDGARDO (acute kidney injury) (Acute) Vitals/I&O's: Vital Signs Temp Pulse Resp BP Pulse Ox 98.0 F 104 H 15 177/76 H 97 12/17/18 04:00 12/17/18 06:39 12/17/18 06:39 12/17/18 06:00 12/17/18 06:37 Oxygen Flow Rate (L/min) 5 Oxygen Delivery Method Mechanical Ventilator Weight: 120.9 kg Body Mass Index (BMI) 39.4 Finger Stick Blood Glucose 269 Intake and Output for Last 24 Hours 12/15/18 12/16/18 12/17/18 23:59 23:59 23:59 Intake Total 1751.05 / 1830.51 1356.04 / 1356.04 155.57 / 155.57 Output Total 2029 / 2034 4105 / 4105 1650 / 1650 Balance -278.95 / -204.49 -2748.96 / -2748.96 -1494.43 / -1494.43 Microbiology Past 72 Hours 12/12/18 13:54 Sputum, Expectorated/Coughed Gram Stain - Final 12/12/18 13:54 Sputum, Expectorated/Coughed Respiratory Culture - Final Mixed normal respiratory devon. No Streptococcus pneumoniae, beta-hemolytic Streptococcus or Staphylococcus aureus isolated. Laboratory Results 12/15/18 12:20: Hep B Core Total Ab Negative 12/15/18 23:51: POC Glucose 301 H 12/15/18 23:52: POC Glucose 316 H 12/16/18 12:38: POC Glucose 231 H 12/16/18 17:31: POC Glucose 314 H 12/16/18 23:48: POC Glucose 357 H 12/17/18 04:25: WBC 10.3, RBC 3.57 L, Hgb 10.2 L, Hct 31.1 L, MCV 87.1, MCH 28.6, MCHC 32.8, RDW Std Deviation 46.0 H, RDW Coeff of Judi 14.5, Plt Count 317, MPV 9.2, Immature Gran % (Auto) 3.900 H, Neut % (Auto) 84.3 H, Lymph % (Auto) 4.9 L, [place] % (Auto) 6.7, Eos % (Auto) 0.0, Baso % (Auto) 0.2, Absolute Neuts (auto) 8.7 H, Absolute Lymphs (auto) 0.50 L, Nucleated RBC % 0.2, Differential Comment SCANNED 12/17/18 04:25: Sodium 137, Potassium 5.3 H, Chloride 97 L, Carbon Dioxide 22.0, BUN 91 H, Creatinine 6.76 H, Estim Creat Clear Calc 10.60, Est GFR (MDRD) Af Amer 11 L, Est GFR (MDRD) Non-Af 9 L, BUN/Creatinine Ratio 13.5, Glucose 383 H, Calcium 7.4 L, Phosphorus 8.7 H, Albumin 2.3 L 12/17/18 05:07: POC Glucose 377 H Current Medications Acetaminophen (Tylenol Liquid) 650 mg GT Q6H PRN PRN PRN Reason: Non-cardiac pain (mod-severe) Al Hydroxide/Mg Hydroxide (Mylanta Ii) 15 - 30 ml GT Q4H PRN PRN PRN Reason: INDIGESTION Albuterol Sulfate (Ventolin Aerosols) 2.5 mg INHALATION Q2H PRN PRN PRN Reason: dyspnea, wheezing Albuterol/Ipratropium (Duoneb) 3 ml INHALATION Q6HWA.RT [facility] Last Admin: 12/17/18 06:36 Dose: 3 ml Documented by: Allopurinol (Zyloprim) 100 mg GT DAILY [facility] Last Admin: 12/16/18 08:53 Dose: 100 mg Documented by: Aspirin (Aspirin, Baby) 81 mg GT DAILY@0800 [facility] Last Admin: 12/16/18 08:52 Dose: 81 mg Documented by: Chlorhexidine Gluconate () 15 ml PO BID [facility] Last Admin: 12/16/18 21:25 Dose: 15 ml Documented by: Chlorhexidine Gluconate () 1 each TOPICAL DAILY [facility] Last Admin: 12/17/18 02:33 Dose: 1 each Documented by: Dextrose (D50w Syringe) 0 gm IV X1 PRN; Protocol PRN Reason: Hypoglycemia Glucagon () 1 mg IM .X1 PRN PRN Reason: Hypoglycemia Heparin Sodium (Porcine) (Heparin Na) 5,000 unit SC Q12 [facility] Last Admin: 12/16/18 21:25 Dose: 5,000 unit Documented by: Hydralazine HCl (Apresoline Iv) 10 mg IV Q4H PRN PRN PRN Reason: SBP > 160 Last Admin: 12/17/18 05:09 Dose: 10 mg Documented by: Sodium Chloride () 250 mls @ 15 mls/hr IV .[id number] PRN PRN Reason: SALINE FLUSH Last Infusion: 12/17/18 04:10 Dose: 0 mls/hr Documented by: Piperacillin Sod/Tazobactam (Sod 3.375 gm/ Sodium Chloride) 50 mls @ 12.5 mls/hr IV Q12 [facility] Last Infusion: 12/17/18 01:44 Dose: Infused Documented by: Pantoprazole Sodium 40 mg/ (Sodium Chloride) 110 mls @ 330 mls/hr IV Q12 [facility] Last Infusion: 12/16/18 21:23 Dose: Infused Documented by: Propofol (Diprivan) 1,000 mg in 100 mls @ 7.254 mls/hr CONT INF .Q12H [facility]; Protocol Last Titration: 12/17/18 06:00 Dose: 0 mcg/kg/min, 0 mls/hr Documented by: Fentanyl () 100 mls @ 20 mls/hr IV UD [facility]; Protocol Last Titration: 12/17/18 06:00 Dose: 0 mcg/hr, 0 mls/hr Documented by: Insulin Glargine (Lantus (Bkc)) 20 units SC BID [facility] Last Admin: 12/16/18 23:50 Dose: 20 u Documented by: Insulin Human Lispro (Humalog Kwikpen (Bkc)) 0 unit SC Q6 [facility]; Protocol Last Admin: 12/17/18 05:10 Dose: 6 units Documented by: Magnesium Hydroxide (Milk Of Magnesia) 30 ml GT DAILY PRN PRN Reason: Constipation Methylprednisolone (Solu-Medrol) 40 mg IV Q8 [facility] Last Admin: 12/17/18 05:10 Dose: 40 mg Documented by: Nitroglycerin (Nitrostat) 0.4 mg SUBLINGUAL Q5M PRN PRN Reason: CARDIAC/CHEST PAIN Ondansetron HCl (Zofran) 4 mg IV Q8H PRN PRN PRN Reason: NAUSEA/VOMITING Pharmacy Profile Note () 1 each NOTE X1 PRN PRN Reason: NOT SPECIFIED Polyethylene Glycol (Miralax) 17 gm GT DAILY PRN PRN PRN Reason: CONSTIPATION Last Admin: 12/16/18 08:57 Dose: 17 gm Documented by: Senna/Docusate Sodium (Senokot-S, Christina-Colace) 2 tablet GT BID [facility] Last Admin: 12/16/18 21:25 Dose: 2 tablet Documented by: Sodium Chloride () 10 - 40 ml IV UD PRN PRN Reason: SALINE FLUSH Last Admin: 12/17/18 05:13 Dose: 20 ml Documented by: Medical Necessity - Tobacco Use Smoking Status: Former smoker Tobacco Use: Non-smoker Assessment/Plan All Active Problems (Last Reviewed 11/05/18 @ 10:26 by Pili May) Nephrotic range proteinuria (Acute) CHF exacerbation (Acute) Chest pain (Acute) EDGARDO (acute kidney injury) (Acute) Choledocholithiasis with acute cholecystitis (Acute) Abnormal LFTs (Acute)
[2018-12-17 08:36] LABS: Bedside Glucose 364 mg/dL (70-110)
--- NOTE | 2018-12-17 10:16 | CASEMGMT ---
MARCO A ASTORGA NOTE: Participated in ICU Liberation rounds. Pt awake/resting in bed. present at bedside. Pt extubated this AM and currently on O2 @ 4 L/M. Per nursing, pt has passed mobility screening and PT/OT to work with pt again today. After rounds, discussed discharge planning with . states if SNF is recommended then she is agreeable and 1st choice is TCU. was informed that if pt requires OP HD @ discharge that TCU does not take pt's on dialysis and 2nd choice of SNF would need to be made. voices understanding. aware that pt would need to be agreeable as well. She asks if discussion of SNF can be made with pt when he is more alert and less anxious. JILL Hill, made aware of above. Sabra TANNERN MARCO A CM
--- NOTE | 2018-12-17 10:17 | CASEMGMT ---
SW participated in ICU rounds. Pt may need group home for skilled therapy upon discharge, as pt is weak and needing much assist at this time. SW spoke briefly w/pt in room, he is getting set up for dialysis. Pt's has stepped out. SW explained to pt is leaving a list of nursing homes in the room for he and to review. Pt states understanding. SW left list in room on windowsill. SW will continue to follow. STEWART Flores
--- NOTE | 2018-12-17 10:25 | PCM.PN.REN ---
Patient Problems: Active and Suspected Problems (Last Reviewed 11/05/18 @ 10:26 by Pili May) Nephrotic range proteinuria (Acute) Chest pain (Acute) EDGARDO (acute kidney injury) (Acute) Subjective: Pt was extubated. denied nausea / vomiting No SOB Making a lot of urine output - Physical Exam General: Alert, Cooperative, No apparent distress HEENT: Atraumatic Oral: Moist Mucosa Neck: Supple, No JVD Lungs: Clear to auscultation, Normal air movement, No rhonchi, No wheeze Cardiovascular: Regular rate, Regular Rhythm, Normal S1, Normal S2 Abdomen: Bowel Sounds Present, Soft, Non Tender, Non-Distended Extremities: No clubbing, No cyanosis, No edema Skin: No rashes Musculoskeletal: No Tenderness to Palpation of Joints or Extremities Lymphatic: No Cervical, Supraclavicular, or Inguinal Adenopathy Neurological: Neuro grossly intact Psych/Mental Status: Appropriate Vital Signs Temp Pulse Resp BP Pulse Ox 98.0 F 97 17 191/89 H 92 12/17/18 04:00 12/17/18 09:00 12/17/18 09:00 12/17/18 09:00 12/17/18 09:00 Oxygen Flow Rate (L/min) 4 Oxygen Delivery Method Nasal Cannula Weight: 120.9 kg Body Mass Index (BMI) 39.4 Finger Stick Blood Glucose 269 Intake and Output for Last 24 Hours 12/15/18 12/16/18 12/17/18 23:59 23:59 23:59 Intake Total 1751.05 / 1830.51 1356.04 / 1356.04 155.57 / 155.57 Output Total 2029 / 2034 4105 / 4105 1650 / 1650 Balance -278.95 / -204.49 -2748.96 / -2748.96 -1494.43 / -1494.43 Microbiology Past 72 Hours 12/12/18 13:54 Gram Stain - Final Sputum, Expectorated/Coughed Respiratory Culture - Final Mixed normal respiratory devon. No Streptococcus pneumoniae, beta-hemolytic Streptococcus or Staphylococcus aureus isolated. Laboratory Tests Past 24 Hrs 12/15/18 12/17/18 12/17/18 12:20 04:25 04:25 WBC 10.3 RBC 3.57 L Hgb 10.2 L Hct 31.1 L MCV 87.1 MCH 28.6 MCHC 32.8 RDW Std Deviation 46.0 H RDW Coeff of Judi 14.5 Plt Count 317 MPV 9.2 Immature Gran % (Auto) 3.900 H Neut % (Auto) 84.3 H Lymph % (Auto) 4.9 L [place] % (Auto) 6.7 Eos % (Auto) 0.0 Baso % (Auto) 0.2 Absolute Neuts (auto) 8.7 H Absolute Lymphs (auto) 0.50 L Nucleated RBC % 0.2 Differential Comment SCANNED Sodium 137 Potassium 5.3 H Chloride 97 L Carbon Dioxide 22.0 BUN 91 H Creatinine 6.76 H Estim Creat Clear Calc 10.60 Est GFR (MDRD) Af Amer 11 L Est GFR (MDRD) Non-Af 9 L BUN/Creatinine Ratio 13.5 Glucose 383 H Calcium 7.4 L Phosphorus 8.7 H Albumin 2.3 L Hep B Core Total Ab Negative POC Glucose 12/17/18 12/17/18 12/16/18 08:07 05:07 23:48 POC Glucose 364 H 377 H 357 H 12/16/18 12/16/18 17:31 12:38 POC Glucose 314 H 231 H Medical Necessity - Tobacco Use Smoking Status: Former smoker Tobacco Use: Non-smoker Assessment/Plan All Active Problems (Last Reviewed 11/05/18 @ 10:26 by Pili May) Nephrotic range proteinuria (Acute) CHF exacerbation (Acute) Chest pain (Acute) EDGARDO (acute kidney injury) (Acute) Choledocholithiasis with acute cholecystitis (Acute) Abnormal LFTs (Acute) 1- EDGARDO on CKD stage 4. Baseline Cr ~ 2.6-2.7 mg/dL from most probably DNP. Pt has significant proteinuria. Pro/Cr was a 11 mg/mg. EDGARDO is from ATN related to sepsis. Pt is now HD dependent for metabolic and fluid support. HD initiated on 12/15 Seen during the 3rd HD session today : BQ 400 DQ 700 UF None Kidney function might be recovering. UOP is increasing Keep MAP > 65. Avoid IV contrast Will continue to monitor for kidney function recovery. continue accurate I/O with daily renal function panel 2- Hyperkalemia : Improved with HD. K is 5.3. HD session with 2K dialysate 3-High anion gap acidosis. from EDGARDO. resolved with HD 4- Hyperphosphatemia: from EDGARDO. P level improved with HD 5- ARF from pneumonia and ARDS Vs CHF Improved. extubated. On NC at 4 l/m Abx as per ICU team Thank you for allowing me to participate in Mr. Gardner's care Renal team will continue to follow Please call if any question at [phone] d/w Dr. Franklin Joyce MD
[2018-12-17 12:45] LABS: Bedside Glucose 228 mg/dL (70-110)
[2018-12-17] MEDS: Heparin Injection (Vial) 5,000 UNIT/ML VIAL 5000 UNIT SC ×2 (12:45→21:44)
--- NOTE | 2018-12-17 15:17 | PCM.PN.HOSP ---
Patient Problems: Active and Suspected Problems (Last Reviewed 11/05/18 @ 10:26 by Pili May) Nephrotic range proteinuria (Acute) Chest pain (Acute) EDGARDO (acute kidney injury) (Acute) Subjective: Patient was seen and examined. Extubated today. Remains on 4 L of oxygen. Denied any worsening shortness of breath or chest pain. Appears comfortable lying in bed. Patient seems also confused and keeps asking questions. Vitals/I&O's: Vital Signs Temp Pulse Resp BP Pulse Ox 97.8 F 135 H 19 H 135/94 H 93 12/17/18 14:28 12/17/18 15:00 12/17/18 15:00 12/17/18 15:00 12/17/18 15:00 Oxygen Flow Rate (L/min) 4 Oxygen Delivery Method Nasal Cannula Weight: 120.9 kg Body Mass Index (BMI) 39.4 Finger Stick Blood Glucose 269 Intake and Output for Last 24 Hours 12/15/18 12/16/18 12/17/18 23:59 23:59 23:59 Intake Total 1751.05 / 1830.51 1356.04 / 1356.04 155.57 / 155.57 Output Total 2029 / 2034 4105 / 4105 3000 / 3000 Balance -278.95 / -204.49 -2748.96 / -2748.96 -2844.43 / -2844.43 General: Alert, Oriented x3, Cooperative, No apparent distress, - - on 4 L oxygem HEENT: Atraumatic, PERRLA, EOMI, Normocephalic Oral: Dry Mucosa Neck: Supple Lungs: Clear to auscultation, Normal air movement Cardiovascular: Regular rate, Regular Rhythm, Normal S1, Normal S2, Murmur - holosystolic, 3/6 Abdomen: Bowel Sounds Present, Soft, Non Tender, Non-Distended, No Hepato-splenomegaly Extremities: Edema - trace bilateral pedal edema Skin: No rashes Musculoskeletal: No Tenderness to Palpation of Joints or Extremities Lymphatic: No Cervical, Supraclavicular, or Inguinal Adenopathy Neurological: Cranial nerves II-XII grossly intact Psych/Mental Status: Normal Affect, Appropriate Microbiology Past 72 Hours 12/12/18 13:54 Sputum, Expectorated/Coughed Gram Stain - Final 12/12/18 13:54 Sputum, Expectorated/Coughed Respiratory Culture - Final Mixed normal respiratory devon. No Streptococcus pneumoniae, beta-hemolytic Streptococcus or Staphylococcus aureus isolated. Laboratory Results 12/16/18 17:31: POC Glucose 314 H 12/16/18 23:48: POC Glucose 357 H 12/17/18 04:25: WBC 10.3, RBC 3.57 L, Hgb 10.2 L, Hct 31.1 L, MCV 87.1, MCH 28.6, MCHC 32.8, RDW Std Deviation 46.0 H, RDW Coeff of Judi 14.5, Plt Count 317, MPV 9.2, Immature Gran % (Auto) 3.900 H, Neut % (Auto) 84.3 H, Lymph % (Auto) 4.9 L, Fleming % (Auto) 6.7, Eos % (Auto) 0.0, Baso % (Auto) 0.2, Absolute Neuts (auto) 8.7 H, Absolute Lymphs (auto) 0.50 L, Nucleated RBC % 0.2, Differential Comment SCANNED 12/17/18 04:25: Sodium 137, Potassium 5.3 H, Chloride 97 L, Carbon Dioxide 22.0, BUN 91 H, Creatinine 6.76 H, Estim Creat Clear Calc 10.60, Est GFR (MDRD) Af Amer 11 L, Est GFR (MDRD) Non-Af 9 L, BUN/Creatinine Ratio 13.5, Glucose 383 H, Calcium 7.4 L, Phosphorus 8.7 H, Albumin 2.3 L 12/17/18 05:07: POC Glucose 377 H 12/17/18 08:07: POC Glucose 364 H 12/17/18 12:41: POC Glucose 228 H Current Medications Acetaminophen (Tylenol) 650 mg PO Q6H PRN PRN Reason: NON CARDIAC PAIN (MOD-SEVERE) Al Hydroxide/Mg Hydroxide (Mylanta Ii) 15 - 30 ml PO Q4H PRN PRN PRN Reason: INDIGESTION Albuterol Sulfate (Ventolin Aerosols) 2.5 mg INHALATION Q2H PRN PRN PRN Reason: dyspnea, wheezing Albuterol/Ipratropium (Duoneb) 3 ml INHALATION Q6HWA.RT HAYES Last Admin: 12/17/18 13:17 Dose: Not Given Documented by: Allopurinol (Zyloprim) 100 mg PO DAILY [facility] Aspirin (Aspirin, Baby) 81 mg PO DAILY@0800 [facility] Chlorhexidine Gluconate () 1 each TOPICAL DAILY [facility] Last Admin: 12/17/18 02:33 Dose: 1 each Documented by: Dextrose (D50w Syringe) 0 gm IV X1 PRN; Protocol PRN Reason: Hypoglycemia Glucagon () 1 mg IM .X1 PRN PRN Reason: Hypoglycemia Heparin Sodium (Porcine) (Heparin Na) 5,000 unit SC Q12 [facility] Last Admin: 12/17/18 12:45 Dose: 5,000 unit Documented by: Hydralazine HCl (Apresoline Iv) 10 mg IV Q4H PRN PRN PRN Reason: SBP > 160 Last Admin: 12/17/18 05:09 Dose: 10 mg Documented by: Sodium Chloride () 250 mls @ 15 mls/hr IV .[id number] PRN PRN Reason: SALINE FLUSH Last Infusion: 12/17/18 04:10 Dose: 0 mls/hr Documented by: Piperacillin Sod/Tazobactam (Sod 3.375 gm/ Sodium Chloride) 50 mls @ 12.5 mls/hr IV Q12 [facility] Last Infusion: 12/17/18 01:44 Dose: Infused Documented by: Pantoprazole Sodium 40 mg/ (Sodium Chloride) 110 mls @ 330 mls/hr IV Q12 [facility] Last Admin: 12/17/18 14:52 Dose: 330 mls/hr Documented by: Insulin Glargine (Lantus (Bkc)) 40 units SC BID [facility] Last Admin: 12/17/18 12:46 Dose: 40 u Documented by: Insulin Human Lispro (Humalog Kwikpen (Bkc)) 0 unit SC Q6 [facility]; Protocol Last Admin: 12/17/18 12:46 Dose: 2 units Documented by: Magnesium Hydroxide (Milk Of Magnesia) 30 ml PO DAILY PRN PRN Reason: Constipation Methylprednisolone (Solu-Medrol) 40 mg IV DAILY [facility] Nitroglycerin (Nitrostat) 0.4 mg SUBLINGUAL Q5M PRN PRN Reason: CARDIAC/CHEST PAIN Ondansetron HCl (Zofran) 4 mg IV Q8H PRN PRN PRN Reason: NAUSEA/VOMITING Pharmacy Profile Note () 1 each NOTE X1 PRN PRN Reason: NOT SPECIFIED Polyethylene Glycol (Miralax) 17 gm PO DAILY PRN PRN PRN Reason: CONSTIPATION Senna/Docusate Sodium (Senokot-S, Christina-Colace) 2 tablet PO BID HAYES Sodium Chloride () 10 - 40 ml IV UD PRN PRN Reason: SALINE FLUSH Last Admin: 12/17/18 05:13 Dose: 20 ml Documented by: Medical Necessity - Tobacco Use Smoking Status: Former smoker Tobacco Use: Non-smoker Assessment/Plan All Active Problems (Last Reviewed 11/05/18 @ 10:26 by Pili May) Nephrotic range proteinuria (Acute) CHF exacerbation (Acute) Chest pain (Acute) EDGARDO (acute kidney injury) (Acute) Choledocholithiasis with acute cholecystitis (Acute) Abnormal LFTs (Acute) 68-year-old male with past medical history of CKD stage IV, type II DM, CAD status post CABG, status post stents, hypertension, DASHA who was admitted on 12/10/18 with progressive shortness of breath and chest discomfort. His management has been that of acute decompensated CHF. He was on IV Lasix. Patient got progressively short of breath and was intubated on 12/14/18. He has since been on a mechanical ventilator. His kidney function has also gotten progressively worse. Nephrology has been consulted. Dialysis catheter has been putting today. Plan is for dialysis today. 1. Acute hypoxic respiratory failure secondary to multilobar CAP, secondary to suspected gram-positive organisms, resolving Urine streptococcal and Legionella antigen as well as sputum culture has been negative. Extubated today 12/17/18, continue breathing treatments, encourage use of incentive spirometer 2. Multilobular CAP, secondary to suspected gram-positive organism, Urine Legionella, streptococcal antigen negative, respiratory panel negative, sputum cultures negative Continue on IV Zosyn for now(day #6) 3. EDGARDO on CKD stage IV, creatinine appears improved, having loss of urine output, nephrology following, patient will be having his 3rd HD 4.Chronic diastolic CHF, acute CHF ruled out, initially was on Lasix, off Lasix account of worsening renal function, fluid removal at dialysis. 5. Chest pain, known CAD at this post CABG, PCI stable, medical management for now, cardiac cath later on when patient recovers On aspirin, metoprolol 6. Nonrheumatic aortic valve stenosis, moderate-severe, will need to follow-up with cardiology in the outpatient 7.Type 2 diabetes mellitus, blood sugars are fairly controlled, will continue blood sugar checks with insulin sliding scale 8.Hypertension, controlled, continue home amlodipine, metoprolol, isosorbide regimen. 9. Acute on Chronic normocytic anemia secondary to iron deficiency likely secondary to chronic GI loss, Status post 2 unit PRBC. Stool positive for occult blood, on IV PPI, will continue to hold fluoxetine 10. DVT PPx - Heparin SC 11. GI PPx- on PPI Code Visit Inpatient E&M: 45640 Subs Hosp L2
--- NOTE | 2018-12-17 15:19 | DIALYSIS ---
HD x3.5 hours completed, tolerated fairly well, became tachycardic twice during treatment (from 90s to 130s), accessed via right neck dialysis catheter, no fluid pulled today due to adequate urine output, UF 0mL
[2018-12-17 18:10] LABS: Bedside Glucose 234 mg/dL (70-110)
[2018-12-17 22:06] LABS: Bedside Glucose 260 mg/dL (70-110)
--- NOTE | 2018-12-17 22:22 | NURSING ---
patient states, don't let me . Patient is very suspicious and resistant to care. Patient is refusing medications. Attempted to call for emotional support, but patient was suspicious of her as well. Attempting to reorient patient and provide emotional support. director call center sales physician updated.
[2018-12-18] VITALS (28 sets, daily range): BP systolic 123–179; BP diastolic 71–90; PULSE 95–152; RESP 12–27; TEMP 36.7–37.4; O2SAT 95–98
[2018-12-18 01:01] LABS: Bedside Glucose 291 mg/dL (70-110)
--- NOTE | 2018-12-18 05:00 | RAD_ITS ---
STUDY: X-RAY CHEST REASON FOR EXAM: Male, 68 years old. Shortness of breath/dyspnea. TECHNIQUE: Single AP portable view of the chest. COMPARISON: Comparison is made with prior examination dated December 15, 2018. FINDINGS: A right internal jugular dialysis catheter is seen with the tip at the junction of the superior vena cava and right atrium. EKG electrodes are seen. The endotracheal tube has been removed. The enteric tube has been removed as well. Residual bilateral patchy airspace disease in both lungs although there has been mild to moderate degree of improvement. Residual changes persist worse in the right lower lobe. Mild residual blunting of both costophrenic angles. Sternal cerclage wires and vascular clips are present from a prior sternotomy and coronary artery bypass graft procedure (CABG). Mild cardiomegaly. Normal mediastinum and ursula. Normal visualized pulmonary arteries. There is atherosclerotic calcification of the aortic arch with tortuosity. There are diffuse degenerative changes of the visualized thoracic spine. Normal visualized ribs, clavicles, and shoulders. There is no demonstrated abnormality of the visualized soft tissue structures of the upper abdomen. RAD/Chest 1 View (Portable) IMPRESSION: Interval improvement of the bilateral airspace disease. Residual changes persist. The endotracheal tube as well as a nasogastric tube have been removed. Electronically Signed: Keagan Long, at 9:32 EDT , Service support ,
[2018-12-18 06:01] LABS: Bedside Glucose 283 mg/dL (70-110)
[2018-12-18] MEDS: Insulin Lispro 100 UNIT/ML INSULN.PEN SC ×3 (06:01→17:35)
[2018-12-18 06:03] LABS: Absolute Lymphocyte Count 0.68 X10^3/uL (0.83-4.51); Absolute Neutrophil Count 8.9 X10^3/uL (2.0-7.7); Basophil# 0.01 X10^3/uL; Basophil% 0.1 % (0-1); Hematocrit 34.5 % (40-54); Hemoglobin 11.1 g/dL (13.0-16.5); Lymphocyte # 0.68 X10^3/ul (4.0); Lymphocyte % 6.1 % (19-41); Mean Corp Hgb Conc 32.2 g/dL (32-36); Mean Corpuscular Hgb 27.8 pg (27.0-32.0); Mean Corpuscular Volume 86.3 fL (80-94); Mean Platelet Vol. 9.1 fl (6.2-12.0); Monocyte# 1.15 X10^3/uL; Monocyte% 10.3 % (0-10); NRBC Flagged by Analyzer 0 % (0-5); Neutrophil # 8.93 X10^3/uL (2.7-7.7); Neutrophil % 80.4 % (47-70); Platelet Count 348 K/mm3 (150-450); RBC Distribution Width CV 14.2 % (11.6-14.6); RBC Distribution Width SD 44.6 fl (35.1-43.9); White Blood Count 11.1 K/mm3 (4.4-11.0)
[2018-12-18 06:15] LABS: Albumin, Serum 2.2 g/dL (3.2-5.0); BUN 73 mg/dL (7-18); Calcium,Total 7.4 mg/dL (8.5-10.1); Chloride 101 mmol/L (98-107); Creatinine, Serum 4.57 mg/dL (0.70-1.30); EST Glomerular Filtration Rate 14 mL/min (>60); Est Glom Filt Rate - Afr Amer 17 mL/min (>60); Estimated Creatinine Clearance 15.69 ml/min; Glucose 332 mg/dL (74-106); Phosphorus 5.8 mg/dL (2.5-4.9); Potassium 4.5 mmol/L (3.5-5.1); Sodium Level 140 mmol/L (136-145)
--- NOTE | 2018-12-18 07:02 | PN_ITS ---
Subjective: The patient was seen and examined at the bedside this morning. Events from the last 24 hours have been reviewed. The patient is currently afebrile, hemodynamically stable and maintaining appropriate oxygen saturations on 4 L/min via nasal cannula. Nursing staff reports that the patient has been delirious overnight with suspicions that people are trying to kill him. The patient did undergo dialysis yesterday with no fluid removal. Glucose remains elevated. Urine output continues to improve. Although orders were placed for the patient to be evaluated by speech therapy yesterday, nobody evaluated the patient. Objective: The patient's most recent lab work, culture data and imaging studies have all been personally reviewed. CT chest without contrast dated December 14 revealed bilateral groundglass changes with consolidation with subpleural sparing along with bilateral pleural effusions. Surface echocardiogram revealed normal LV size with concentric LVH and an ejection fraction of 65%. There was moderate to severe aortic stenosis. Strep and urine Legionella antigens were both negative. Respiratory viral panel was negative. Expectorated sputum culture appears to be normal respiratory devon. General: Alert, Cooperative, - - AAOx2. HEENT: Atraumatic, PERRLA, Normocephalic Oral: No Gingival or Mucosal Lesions/ Ulcerations Neck: Supple, No Nodes, Trachea Midline, - - Right IJ temporary hemodialysis catheter in place Lungs: No rhonchi, No wheeze, No rales, Diminished Cardiovascular: Regular rate, Regular Rhythm, Normal S1, Normal S2, Murmur Abdomen: Bowel Sounds Present, Soft, Non Tender, Obese Extremities: No clubbing, No cyanosis, Edema Skin: - - No significant change from previous Musculoskeletal: No Tenderness to Palpation of Joints or Extremities, No Muscle Wasting Lymphatic: No Cervical, Supraclavicular, or Inguinal Adenopathy Neurological: - - No focal neurological deficits. Psych/Mental Status: Flat Affect Vital Signs Temp Pulse Resp BP Pulse Ox 98.2 F 103 H 21 H 161/83 H 98 12/18/18 06:00 12/18/18 06:00 12/18/18 06:00 12/18/18 06:00 12/18/18 06:00 Oxygen Flow Rate (L/min) 4 Oxygen Delivery Method Nasal Cannula Weight: 250 lb 7.122 oz Body Mass Index (BMI) 39.4 Finger Stick Blood Glucose 269 Intake and Output for Last 24 Hours 12/16/18 12/17/1812/18/19 23:59 23:59 23:59 Intake Total 1356.04 / 1356.04 315.57 / 315.57 Output Total 4105 / 4105 3950 / 5200 1250 / 1250 Balance -2748.96 / -2748.96 -3634.43 / -4884.43 -1250 / -1250 Labs (Last 48 Hours) 12/15/18 12/15/18 12/15/18 12:20 23:51 23:52 WBC RBC Hgb Hct MCV MCH MCHC RDW Std Deviation RDW Coeff of Judi Plt Count MPV Immature Gran % (Auto) Neut % (Auto) Lymph % (Auto) [place] % (Auto) Eos % (Auto) Baso % (Auto) Absolute Neuts (auto) Absolute Lymphs (auto) Nucleated RBC % Differential Comment Sodium Potassium Chloride Carbon Dioxide BUN Creatinine Estim Creat Clear Calc Est GFR (MDRD) Af Amer Est GFR (MDRD) Non-Af BUN/Creatinine Ratio Glucose Calcium Phosphorus Albumin Hep B Core Total Ab Negative POC Glucose 301 H 316 H 12/16/18 12/16/18 12/16/18 12:38 17:31 23:48 WBC RBC Hgb Hct MCV MCH MCHC RDW Std Deviation RDW Coeff of Judi Plt Count MPV Immature Gran % (Auto) Neut % (Auto) Lymph % (Auto) [place] % (Auto) Eos % (Auto) Baso % (Auto) Absolute Neuts (auto) Absolute Lymphs (auto) Nucleated RBC % Differential Comment Sodium Potassium Chloride Carbon Dioxide BUN Creatinine Estim Creat Clear Calc Est GFR (MDRD) Af Amer Est GFR (MDRD) Non-Af BUN/Creatinine Ratio Glucose Calcium Phosphorus Albumin Hep B Core Total Ab POC Glucose 231 H 314 H 357 H 12/17/18 12/17/18 12/17/18 04:25 04:25 05:07 WBC 10.3 RBC 3.57 L Hgb 10.2 L Hct 31.1 L MCV 87.1 MCH 28.6 MCHC 32.8 RDW Std Deviation 46.0 H RDW Coeff of Judi 14.5 Plt Count 317 MPV 9.2 Immature Gran % (Auto) 3.900 H Neut % (Auto) 84.3 H Lymph % (Auto) 4.9 L [place] % (Auto) 6.7 Eos % (Auto) 0.0 Baso % (Auto) 0.2 Absolute Neuts (auto) 8.7 H Absolute Lymphs (auto) 0.50 L Nucleated RBC % 0.2 Differential Comment SCANNED Sodium 137 Potassium 5.3 H Chloride 97 L Carbon Dioxide 22.0 BUN 91 H Creatinine 6.76 H Estim Creat Clear Calc 10.60 Est GFR (MDRD) Af Amer 11 L Est GFR (MDRD) Non-Af 9 L BUN/Creatinine Ratio 13.5 Glucose 383 H Calcium 7.4 L Phosphorus 8.7 H Albumin 2.3 L Hep B Core Total Ab POC Glucose 377 H 12/17/18 12/17/18 12/17/18 08:07 12:41 18:04 WBC RBC Hgb Hct MCV MCH MCHC RDW Std Deviation RDW Coeff of Judi Plt Count MPV Immature Gran % (Auto) Neut % (Auto) Lymph % (Auto) [place] % (Auto) Eos % (Auto) Baso % (Auto) Absolute Neuts (auto) Absolute Lymphs (auto) Nucleated RBC % Differential Comment Sodium Potassium Chloride Carbon Dioxide BUN Creatinine Estim Creat Clear Calc Est GFR (MDRD) Af Amer Est GFR (MDRD) Non-Af BUN/Creatinine Ratio Glucose Calcium Phosphorus Albumin Hep B Core Total Ab POC Glucose 364 H 228 H 234 H 12/17/18 12/18/18 12/18/18 21:29 00:55 05:48 WBC RBC Hgb Hct MCV MCH MCHC RDW Std Deviation RDW Coeff of Judi Plt Count MPV Immature Gran % (Auto) Neut % (Auto) Lymph % (Auto) [place] % (Auto) Eos % (Auto) Baso % (Auto) Absolute Neuts (auto) Absolute Lymphs (auto) Nucleated RBC % Differential Comment Sodium Potassium Chloride Carbon Dioxide BUN Creatinine Estim Creat Clear Calc Est GFR (MDRD) Af Amer Est GFR (MDRD) Non-Af BUN/Creatinine Ratio Glucose Calcium Phosphorus Albumin Hep B Core Total Ab POC Glucose 260 H 291 H 283 H 12/18/18 12/18/18 05:50 05:50 WBC 11.1 H RBC 4.00 L Hgb 11.1 L Hct 34.5 L MCV 86.3 MCH 27.8 MCHC 32.2 RDW Std Deviation 44.6 H RDW Coeff of Juid 14.2 Plt Count 348 MPV 9.1 Immature Gran % (Auto) 3.100 H Neut % (Auto) 80.4 H Lymph % (Auto) 6.1 L [place] % (Auto) 10.3 H Eos % (Auto) 0.0 Baso % (Auto) 0.1 Absolute Neuts (auto) 8.9 H Absolute Lymphs (auto) 0.68 L Nucleated RBC % 0 Differential Comment Sodium 140 Potassium 4.5 Chloride 101 Carbon Dioxide 22.0 BUN 73 H Creatinine 4.57 H Estim Creat Clear Calc 15.69 Est GFR (MDRD) Af Amer 17 L Est GFR (MDRD) Non-Af 14 L BUN/Creatinine Ratio 16.0 Glucose 332 H Calcium 7.4 L Phosphorus 5.8 H Albumin 2.2 L Hep B Core Total Ab POC Glucose Clinical Impression(s) from Imaging Studies Chest X-Ray 12/10/18 21:29 IMPRESSION: Bilateral perihilar pneumonia versus pulmonary edema. Electronically Signed: Luis E Fishman DO at 22:01 EDT Tel [phone], Service support , Renal Ultrasound 12/11/18 13:27 IMPRESSION: Bilateral renal cysts. Electronically Signed: Marek Sanchez DO at 21:57 EDT Tel [phone], Service support , Chest X-Ray 12/12/18 05:55 IMPRESSION: Progressive bilateral infiltrates. Electronically Signed: Keagan Long, at 11:07 EDT , Service support , Chest CT 12/14/18 07:36 IMPRESSION: Status post sternotomy mild cardiomegaly coronary artery disease. There is a perihilar pattern of groundglass opacities now some with consolidation with bilateral effusions. Findings are suspicious for pulmonary edema which may be cardiogenic. The differential includes diffuse pneumonia potentially hemorrhage in the appropriate clinical setting. There is reactive appearing lymphadenopathy and several reactive or potentially pathologic right paratracheal lymph nodes. Hepatosplenomegaly. The spleen measures 16 x 10 x 12.4 cm. Electronically Signed: Latia Alejandra MD at 9:20 EDT Tel , Service support , Chest X-Ray 12/14/18 16:15 IMPRESSION: 1. Endotracheal tube with tip terminating 2 cm above the franchesca. 2. Enteric tube terminates in the medial upper stomach with side-port likely at the GE junction. Recommend advancing 5 cm. 3. Worse bilateral airspace disease could represent pneumonia, pulmonary edema or ARDS. Electronically Signed: Duc Gomez MD ([place]) at 16:40 EDT , Service support , KUB X-Ray 12/14/18 19:41 IMPRESSION: Limited study due to patient's body habitus and motion Non-obstructive bowel gas pattern. NG tube with the tip in the stomach at 2055 Reported and signed by: Latia Mathews DO Electronically Signed: Latia Mathews DO at 20:54 EDT Tel , Service support , Chest X-Ray 12/15/18 08:37 IMPRESSION: 1. Right jugular dialysis catheter with tip terminating in lower SVC. 2. Mildly improved bilateral airspace disease could represent pneumonia, pulmonary edema or ARDS. Electronically Signed: Duc Gomez MD ([place]) at 9:21 EDT , Service support , Medical Necessity - Tobacco Use Smoking Status: Former smoker Tobacco Use: Non-smoker Assessment/Plan All Active Problems (Last Reviewed 11/05/18 @ 10:26 by Pili May) Nephrotic range proteinuria (Acute) CHF exacerbation (Acute) Chest pain (Acute) EDGARDO (acute kidney injury) (Acute) Choledocholithiasis with acute cholecystitis (Acute) Abnormal LFTs (Acute) RECOMMENDATIONS: 1. Continue antibiotic's with plans to complete a 7-day treatment course. 2. Continue to wean steroids as tolerated. 3. Await speech therapy evaluation prior to advancing diet. 4. Recommend continued use of BiPAP therapy with sleep. 5. Wean supplemental oxygen to maintain saturations at or above 90%. 6. Encourage incentive parameter use and mobilize patient as tolerated. IMPRESSIONS: 1. Acute hypoxemic respiratory failure While initially felt to be secondary to decompensated heart failure, the radiographic findings noted on chest x-ray was concerning for multilobar pneumonia. The patient had been diuresed with worsening renal function and no significant improvement in his respiratory status. Diuretics were subsequently discontinued and the patient was started on broad-spectrum antimicrobial therapy. Despite the aforementioned, the patient continued to decompensate from a respiratory perspective and subsequently had to be intubated. His respiratory failure is likely multifactorial in etiology with heart failure and pulmonary infectious/inflammatory disorder contributing. The patient was able to be successfully extubated on December 17. The patient will remain on broad- spectrum antimicrobial therapy and IV steroids as ordered. Steroids will be weaned accordingly. Continue hemodialysis per nephrology recommendations. Continue to wean supplemental oxygen to maintain saturations at or above 90%. Encourage incentive spirometer use and mobilize patient as tolerated. 2. Coronary artery disease/heart failure with preserved ejection fraction/valvular heart disease The patient does not appear to be overtly volume overloaded at this time. Cardiology is currently following. Continue volume optimization via hemodialysis. 3. Acute on chronic kidney disease Suspect prerenal etiology due to use of diuretics, coupled with chronic medical renal disease. Nephrology is following. 4. Chronic anemia The patient has baseline chronic anemia. In his setting of coronary artery disease, the patient was transfused packed red blood cells. At the current time, there are no signs of overt blood loss. There is no indication for transfusion of additional blood products. 5. Obstructive sleep apnea Resume nocturnal Pap therapy upon extubation. Given the patient's weight gain over the last year, he may require a re-titration study and subsequent increase in his pressure support. This can be completed on an outpatient basis. 6. Diabetes mellitus/hypertension/hyperlipidemia/anxiety/depression/CODE STATUS Complicates care, management, recovery and prognosis. CODE STATUS- FULL CODE. This note was generated with [employer] software. It may contain incorrect words, spelling, and punctuation that were not noted in checking the note before signing. Code Visit Inpatient E&M: 14635 Subs Hosp L3
--- NOTE | 2018-12-18 09:10 | NURSING ---
Report given to Mary STRICKLAND in PCU. Pt transported to PCU by Effie CARVALHO.
[2018-12-18] MEDS: Heparin Injection (Vial) 5,000 UNIT/ML VIAL 5000 UNIT SC ×2 (09:35→22:17)
[2018-12-18] MEDS: hydrALAZINE 20 MG/ML Vial 10 MG IV ×2 (09:36→22:21)
[2018-12-18] MEDS: 0.9% NaCl Peripheral Flush Adult/Peds IV ×3 (09:36→16:06)
[2018-12-18] MEDS: 0.9% NaCl IVPB Med Flush (250 mL) 15 ML IV (09:36)
--- NOTE | 2018-12-18 10:08 | PCM.PN.REN ---
Patient Problems: Active and Suspected Problems (Last Reviewed 11/05/18 @ 10:26 by Pili May) Nephrotic range proteinuria (Acute) Chest pain (Acute) EDGARDO (acute kidney injury) (Acute) Subjective: Patient has no nausea no vomiting. No shortness of breath. No chest pain. Still did not have bowel movement yet - Physical Exam General: Alert, Oriented x3 HEENT: Atraumatic Oral: Moist Mucosa Neck: Supple, No JVD Lungs: Clear to auscultation, Normal air movement, No rhonchi Cardiovascular: Regular rate, Regular Rhythm, Normal S1, Normal S2 Abdomen: Bowel Sounds Present, Soft, Non Tender Extremities: No clubbing, No cyanosis, No edema Musculoskeletal: No Tenderness to Palpation of Joints or Extremities Lymphatic: No Cervical, Supraclavicular, or Inguinal Adenopathy Neurological: Cranial nerves II-XII grossly intact, Neuro grossly intact Psych/Mental Status: Appropriate Vital Signs Temp Pulse Resp BP Pulse Ox 99.3 F H 101 H 18 171/89 H 98 12/18/18 09:27 12/18/18 09:36 12/18/18 09:27 12/18/18 09:36 12/18/18 09:27 Oxygen Flow Rate (L/min) 4 Oxygen Delivery Method Nasal Cannula Weight: 113.6 kg Body Mass Index (BMI) 39.4 Finger Stick Blood Glucose 269 Intake and Output for Last 24 Hours 12/16/18 12/17/18 12/18/18 23:59 23:59 23:59 Intake Total 1356.04 / 1356.04 315.57 / 315.57 160.25 / 160.25 Output Total 4105 / 4105 3950 / 5200 2150 / 2150 Balance -2748.96 / -2748.96 -3634.43 / -4884.43 -75 / - Microbiology Past 72 Hours 12/12/18 13:54 Gram Stain - Final Sputum, Expectorated/Coughed Respiratory Culture - Final Mixed normal respiratory devon. No Streptococcus pneumoniae, beta-hemolytic Streptococcus or Staphylococcus aureus isolated. Laboratory Tests Past 24 Hrs 12/18/18 12/18/18 05:50 05:50 WBC 11.1 H RBC 4.00 L Hgb 11.1 L Hct 34.5 L MCV 86.3 MCH 27.8 MCHC 32.2 RDW Std Deviation 44.6 H RDW Coeff of Judi 14.2 Plt Count 348 MPV 9.1 Immature Gran % (Auto) 3.100 H Neut % (Auto) 80.4 H Lymph % (Auto) 6.1 L Desha % (Auto) 10.3 H Eos % (Auto) 0.0 Baso % (Auto) 0.1 Absolute Neuts (auto) 8.9 H Absolute Lymphs (auto) 0.68 L Nucleated RBC % 0 Sodium 140 Potassium 4.5 Chloride 101 Carbon Dioxide 22.0 BUN 73 H Creatinine 4.57 H Estim Creat Clear Calc 15.69 Est GFR (MDRD) Af Amer 17 L Est GFR (MDRD) Non-Af 14 L BUN/Creatinine Ratio 16.0 Glucose 332 H Calcium 7.4 L Phosphorus 5.8 H Albumin 2.2 L POC Glucose 12/18/18 12/18/18 12/17/18 05:48 00:55 21:29 POC Glucose 283 H 291 H 260 H 12/17/18 12/17/18 18:04 12:41 POC Glucose 234 H 228 H Medical Necessity - Tobacco Use Smoking Status: Former smoker Tobacco Use: Non-smoker Assessment/Plan All Active Problems (Last Reviewed 11/05/18 @ 10:26 by Pili May) Nephrotic range proteinuria (Acute) CHF exacerbation (Acute) Chest pain (Acute) EDGARDO (acute kidney injury) (Acute) Choledocholithiasis with acute cholecystitis (Acute) Abnormal LFTs (Acute) 1- EDGARDO on CKD stage 4. Baseline Cr ~ 2.6-2.7 mg/dL from most probably DNP. Pt has significant proteinuria. Pro/Cr was a 11 mg/mg. EDGARDO is from ATN related to sepsis. Pt is now HD dependent for metabolic and fluid support. HD initiated on 12/15 Last hemodialysis session was December 17. Patient is making urine. He is polyuric now No need for hemodialysis session today. I will monitor kidney function tomorrow. If no solute clearance, will arrange for hemodialysis Keep MAP > 65. Avoid IV contrast Will continue to monitor for kidney function recovery. continue accurate I/O with daily renal function panel 2- Hyperkalemia : Resolved with hemodialysis 3-High anion gap acidosis. from EDGARDO. resolved with HD 4- Hyperphosphatemia: from EDGARDO. P level is improving with HD 5- ARF from pneumonia and ARDS Vs CHF Improved. extubated. On NC at 4 l/m Abx as per primary service Thank you for allowing me to participate in Mr. Gardner's care Renal team will continue to follow Please call if any question at [phone] d/w Dr.Paintsil Carolyn Joyce MD
--- NOTE | 2018-12-18 11:30 | EKG12_ITS ---
Test Reason : Blood Pressure : / mmHG Vent. Rate : 149 BPM Atrial Rate : 163 BPM P-R Int : 000 ms QRS Dur : 096 ms QT Int : 310 ms P-R-T Axes : 000 059 -12 degrees QTc Int : 488 ms Supraventricular tachycardia Nonspecific ST abnormality Abnormal QRS-T angle, consider primary T wave abnormality Abnormal ECG Confirmed by ANTHONY BACK, JACKIE ([id number]), editor dictionary KYLE SIDDIQI ([id number]) on 12/19/2018 2:21:43 PM Referred By: Confirmed By:JACKIE CRUZ MD
[2018-12-18 11:40] LABS: Bedside Glucose 373 mg/dL (70-110)
[2018-12-18] MEDS: Adenosine 6 MG/2 ML Syringe IV (12:08)
[2018-12-18 12:32] LABS: Magnesium 2.7 mg/dL (1.6-2.6)
--- NOTE | 2018-12-18 12:32 | EKG12_ITS ---
Test Reason : Blood Pressure : / mmHG Vent. Rate : 108 BPM Atrial Rate : 108 BPM P-R Int : 158 ms QRS Dur : 098 ms QT Int : 342 ms P-R-T Axes : 055 070 023 degrees QTc Int : 458 ms Sinus tachycardia Possible Left atrial enlargement Borderline ECG When compared with ECG of 18-DEC-2018 12:05, MANUAL COMPARISON REQUIRED, DATA IS UNCONFIRMED Confirmed by ANTHONY BACK, JACKIE ([id number]), legal editor KYLE SIDDIQI ([id number]) on 12/19/2018 2:32:51 PM Referred By: Confirmed By:JACKIE CRUZ MD
--- NOTE | 2018-12-18 14:08 | CASEMGMT ---
had indicated yesterday she may be interested in TCU. Pt does not need dialysis, SW called to see about beds. They will not have beds until next week, SW placed pt's name on the list in the event a bed is available when pt is ready. STEWART Flroes
--- NOTE | 2018-12-18 15:57 | CASEMGMT ---
SW spoke with patient's . Introduced self and role at [facility]. SW gave her a new list of intermediate facilities as she said she did not get the first one. SW asked her to pick at least 3 choices. She said her first choice is [facility]CU and second would be [facility]. She is not sure about a 3rd choice yet. JILL told her that SW can check back with her. Patient's name has been placed on the TCU list. Sarita JERNIGAN MSW
[2018-12-18] MEDS: Metoprolol Tartrate 5 MG/5 ML Vial IV ×2 (16:06→23:54)
[2018-12-18 16:40] LABS: Bedside Glucose 362 mg/dL (70-110)
[2018-12-18] MEDS: Ipratropium/Albuterol Sulfate 3 ML AMPUL.NEB INHALATION (19:18)
[2018-12-18] MEDS: Senna/Docusate Sodium 1 Tablet 2 TABLET PO (22:19)
--- NOTE | 2018-12-18 22:38 | PN_ITS ---
Patient Problems: Active and Suspected Problems (Last Reviewed 11/05/18 @ 10:26 by Pili May) Nephrotic range proteinuria (Acute) Chest pain (Acute) EDGARDO (acute kidney injury) (Acute) Subjective: Patient was seen and examined earlier in praveen morning. He has been confused in the ICU. Remains on 4L oxygen. Upon transfer to PCU, patient was found to be in SVT, HR 160s. He was asymptomatic. He received 6mg IV adenosine with conversion to NSR/sinus tachycardia. Patient's metoprolol has been held since ICU transfer. Unable to obtain review of vitals as patient appears to be slow in mentation and response. Objective: Physical exam: General: Alert, Oriented x3, Cooperative, No apparent distress, - - on 4 L oxygen HEENT: Atraumatic, PERRLA, EOMI, Normocephalic, right IV dialysis catheter Oral: Dry Mucosa Neck: Supple Lungs: Clear to auscultation, Normal air movement Cardiovascular: Regular rate, Regular Rhythm, Normal S1, Normal S2, Murmur - holosystolic, 3/6 Abdomen: Bowel Sounds Present, Soft, Non Tender, Non-Distended, No Hepato- splenomegaly Extremities: Edema - trace bilateral pedal edema Skin: No rashes Musculoskeletal: No Tenderness to Palpation of Joints or Extremities Lymphatic: No Cervical, Supraclavicular, or Inguinal Adenopathy Neurological: Cranial nerves II-XII grossly intact Psych/Mental Status: Normal Affect, Appropriate Vitals/I&O's: Vital Signs Temp Pulse Resp BP Pulse Ox 98.3 F 97 18 178/87 H 95 12/18/18 20:11 12/18/18 22:21 12/18/18 20:11 12/18/18 22:21 12/18/18 20:11 Oxygen Flow Rate (L/min) 3 Oxygen Delivery Method Nasal Cannula Weight: 113.6 kg Body Mass Index (BMI) 39.4 Finger Stick Blood Glucose 269 Intake and Output for Last 24 Hours 12/16/18 12/17/18 12/18/18 23:59 23:59 23:59 Intake Total 1356.04 / 1356.04 315.57 / 315.57 360.25 / 360.25 Output Total 4105 / 4105 3950 / 5200 3850 / 3850 Balance -2748.96 / -2748.96 -3634.43 / -4884.43 -3489.75 / -3489.75 Laboratory Results 12/18/18 00:55: POC Glucose 291 H 12/18/18 05:48: POC Glucose 283 H 12/18/18 05:50: WBC 11.1 H, RBC 4.00 L, Hgb 11.1 L, Hct 34.5 L, MCV 86.3, MCH 27.8, MCHC 32.2, RDW Std Deviation 44.6 H, RDW Coeff of Judi 14.2, Plt Count 348, MPV 9.1, Immature Gran % (Auto) 3.100 H, Neut % (Auto) 80.4 H, Lymph % (Auto) 6.1 L, [place] % (Auto) 10.3 H, Eos % (Auto) 0.0, Baso % (Auto) 0.1, Absolute Neuts (auto) 8.9 H, Absolute Lymphs (auto) 0.68 L, Nucleated RBC % 0 12/18/18 05:50: Sodium 140, Potassium 4.5, Chloride 101, Carbon Dioxide 22.0, BUN 73 H, Creatinine 4.57 H, Estim Creat Clear Calc 15.69, Est GFR (MDRD) Af Amer 17 L, Est GFR (MDRD) Non-Af 14 L, BUN/Creatinine Ratio 16.0, Glucose 332 H, Calcium 7.4 L, Phosphorus 5.8 H, Albumin 2.2 L 12/18/18 05:50: Magnesium 2.7 H 12/18/18 11:32: POC Glucose 373 H 12/18/18 16:29: POC Glucose 362 H Current Medications Acetaminophen (Tylenol) 650 mg PO Q6H PRN PRN Reason: NON CARDIAC PAIN (MOD-SEVERE) Al Hydroxide/Mg Hydroxide (Mylanta Ii) 15 - 30 ml PO Q4H PRN PRN PRN Reason: INDIGESTION Albuterol Sulfate (Ventolin Aerosols) 2.5 mg INHALATION Q2H PRN PRN PRN Reason: dyspnea, wheezing Albuterol/Ipratropium (Duoneb) 3 ml INHALATION Q6HWA.RT [facility] Last Admin: 12/18/18 19:18 Dose: 3 ml Documented by: Allopurinol (Zyloprim) 100 mg PO DAILY [facility] Last Admin: 12/18/18 09:30 Dose: Not Given Documented by: Aspirin (Aspirin, Baby) 81 mg PO DAILY@0800 [facility] Last Admin: 12/18/18 09:29 Dose: Not Given Documented by: Dextrose (D50w Syringe) 0 gm IV X1 PRN; Protocol PRN Reason: Hypoglycemia Glucagon () 1 mg IM .X1 PRN PRN Reason: Hypoglycemia Heparin Sodium (Porcine) (Heparin Na) 5,000 unit SC Q12 [facility] Last Admin: 12/18/18 22:17 Dose: 5,000 unit Documented by: Hydralazine HCl (Apresoline Iv) 10 mg IV Q4H PRN PRN PRN Reason: SBP > 160 Last Admin: 12/18/18 22:21 Dose: 10 mg Documented by: Sodium Chloride () 250 mls @ 15 mls/hr IV .[id number] PRN PRN Reason: SALINE FLUSH Last Infusion: 12/18/18 09:37 Dose: 0 mls/hr Documented by: Piperacillin Sod/Tazobactam (Sod 3.375 gm/ Sodium Chloride) 50 mls @ 12.5 mls/hr IV Q12 [facility] Last Admin: 12/18/18 22:15 Dose: 12.5 mls/hr Documented by: Pantoprazole Sodium 40 mg/ (Sodium Chloride) 110 mls @ 330 mls/hr IV Q12 [facility] Last Admin: 12/18/18 22:22 Dose: 330 mls/hr Documented by: Insulin Glargine (Lantus (Bkc)) 40 units SC BID [facility] Last Admin: 12/18/18 22:18 Dose: 40 u Documented by: Insulin Human Lispro (Humalog Kwikpen (Bkc)) 0 unit SC Q6 [facility]; Protocol Last Admin: 12/18/18 17:35 Dose: 6 units Documented by: Magnesium Hydroxide (Milk Of Magnesia) 30 ml PO DAILY PRN PRN Reason: Constipation Metoprolol Tartrate (Lopressor (Beta Ayde)) 5 mg IV Q6H PRN PRN PRN Reason: TO CONTROL HEART RATE Last Admin: 12/18/18 16:06 Dose: 5 mg Documented by: Nitroglycerin (Nitrostat) 0.4 mg SUBLINGUAL Q5M PRN PRN Reason: CARDIAC/CHEST PAIN Ondansetron HCl (Zofran) 4 mg IV Q8H PRN PRN PRN Reason: NAUSEA/VOMITING Pharmacy Profile Note () 1 each NOTE X1 PRN PRN Reason: NOT SPECIFIED Polyethylene Glycol (Miralax) 17 gm PO DAILY PRN PRN PRN Reason: CONSTIPATION Prednisone () 40 mg PO DAILY@0800 [facility] Last Admin: 12/18/18 09:29 Dose: Not Given Documented by: Senna/Docusate Sodium (Senokot-S, Christina-Colace) 2 tablet PO BID [facility] Last Admin: 12/18/18 22:19 Dose: 2 tablet Documented by: Sodium Chloride () 10 - 40 ml IV UD PRN PRN Reason: SALINE FLUSH Last Admin: 12/18/18 16:06 Dose: 10 ml Documented by: Medical Necessity - Tobacco Use Smoking Status: Former smoker Tobacco Use: Non-smoker Assessment/Plan All Active Problems (Last Reviewed 11/05/18 @ 10:26 by Pili May) Nephrotic range proteinuria (Acute) CHF exacerbation (Acute) Chest pain (Acute) EDGARDO (acute kidney injury) (Acute) Choledocholithiasis with acute cholecystitis (Acute) Abnormal LFTs (Acute) 68-year-old male with past medical history of CKD stage IV, type II DM, CAD status post CABG, status post stents, hypertension, DASHA who was admitted on 12/10/18 with progressive shortness of breath and chest discomfort. His management has been that of acute decompensated CHF. He was on IV Lasix. Patient got progressively short of breath and was intubated on 12/14/18. He has since been on a mechanical ventilator. His kidney function has also gotten progressively worse. Nephrology has been consulted. Dialysis catheter has been putting today. Plan is for dialysis today. 1. Acute hypoactive delirium/ICU delirium, will continue non-pharmacologic management and avoid anticholinergics 2. Episode of SVT, s/p adenosine, will continue on IV metoprolol until patient can safely have oral intake 3. Acute hypoxic respiratory failure secondary to multilobar CAP, secondary to suspected gram-positive organisms, resolving Now on 4L oxygen, continue breathing treatments, encourage use of incentive spirometer 4. Multilobular CAP, secondary to suspected gram-positive organism, completed antibiotics - IV Zosyn Urine Legionella, streptococcal antigen negative, respiratory panel negative, sputum cultures negative 5. EDGARDO on CKD stage IV, creatinine is improved. No HD today. Will monitor 6.Chronic diastolic CHF, acute CHF ruled out, initially was on Lasix, off Lasix account of worsening renal function, fluid removal at dialysis. 7. Chest pain, known CAD at this post CABG, PCI stable, medical management for now, cardiac cath later on when patient recovers On aspirin, metoprolol 8. Nonrheumatic aortic valve stenosis, moderate-severe, will need to follow-up with cardiology in the outpatient 9.Type 2 diabetes mellitus, blood sugars are fairly controlled, will continue blood sugar checks with insulin sliding scale 10.Hypertension, controlled, will continue on IV Metoprolol, continue to monitor 11. Acute on Chronic normocytic anemia secondary to iron deficiency likely secondary to chronic GI loss, Status post 2 unit PRBC. Stool positive for occult blood, on IV PPI, will continue to hold fluoxetine 12. DVT PPx - Heparin SC 13. GI PPx- on PPI Code Visit Inpatient E&M: 97749 Subs Hosp L3
[2018-12-18 22:45] LABS: Bedside Glucose 335 mg/dL (70-110)
--- NOTE | 2018-12-18 23:48 | EKG12_ITS ---
Test Reason : SVT Blood Pressure : / mmHG Vent. Rate : 152 BPM Atrial Rate : 058 BPM P-R Int : 000 ms QRS Dur : 096 ms QT Int : 334 ms P-R-T Axes : 000 053 035 degrees QTc Int : 531 ms Poor data quality, interpretation may be adversely affected Supraventricular tachycardia Nonspecific ST abnormality Abnormal ECG Confirmed by JAE BACK, SADIE ([id number]), fan mail editor JERRY GONZALEZ ([id number]) on 12/24/2018 3:13:07 PM Referred By: DR PALMA Confirmed By:SADIE ROWE MD
--- NOTE | 2018-12-18 23:50 | EKG12_ITS ---
Test Reason : Blood Pressure : / mmHG Vent. Rate : 148 BPM Atrial Rate : 166 BPM P-R Int : 000 ms QRS Dur : 094 ms QT Int : 310 ms P-R-T Axes : 000 054 007 degrees QTc Int : 486 ms Supraventricular tachycardia Nonspecific ST abnormality Abnormal ECG When compared with ECG of 11-DEC-2018 01:29, Vent. rate has increased BY 81 BPM T wave inversion now evident in Inferior leads Nonspecific T wave abnormality no longer evident in Lateral leads Confirmed by ANTHONY BACK, JACKIE ([id number]), assignment desk editor KYLE SIDDIQI ([id number]) on 12/19/2018 2:33:05 PM Referred By: BRISA Confirmed By:JACKIE CRUZ MD
[2018-12-19] VITALS (20 sets, daily range): BP systolic 123–160; BP diastolic 74–99; PULSE 73–147; RESP 16–20; TEMP 36.4–36.9; O2SAT 93–98
[2018-12-19] MEDS: Insulin Lispro 100 UNIT/ML INSULN.PEN SC ×4 (00:09→22:41)
[2018-12-19 00:16] LABS: Bedside Glucose 376 mg/dL (70-110)
[2018-12-19] MEDS: cloNIDine HCl 0.1 MG Tablet PO (00:48)
[2018-12-19] MEDS: Metoprolol Tartrate 5 MG/5 ML Vial IV ×2 (04:21→09:49)
[2018-12-19 05:11] LABS: Bedside Glucose 369 mg/dL (70-110)
[2018-12-19 06:20] LABS: Absolute Lymphocyte Count 0.62 X10^3/uL (0.83-4.51); Absolute Neutrophil Count 8.3 X10^3/uL (2.0-7.7); Basophil# 0.02 X10^3/uL; Basophil% 0.2 % (0-1); Hematocrit 36.4 % (40-54); Hemoglobin 11.7 g/dL (13.0-16.5); Lymphocyte # 0.62 X10^3/ul (4.0); Lymphocyte % 6.1 % (19-41); Mean Corp Hgb Conc 32.1 g/dL (32-36); Mean Corpuscular Hgb 28.1 pg (27.0-32.0); Mean Corpuscular Volume 87.3 fL (80-94); Mean Platelet Vol. 9.3 fl (6.2-12.0); Monocyte# 0.83 X10^3/uL; Monocyte% 8.1 % (0-10); NRBC Flagged by Analyzer 0 % (0-5); Neutrophil # 8.31 X10^3/uL (2.7-7.7); Neutrophil % 81.4 % (47-70); Platelet Count 366 K/mm3 (150-450); RBC Distribution Width CV 14.4 % (11.6-14.6); RBC Distribution Width SD 45.8 fl (35.1-43.9); Red Blood Count 4.17 M/mm3 (4.6-6.2); White Blood Count 10.2 K/mm3 (4.4-11.0)
[2018-12-19 06:43] LABS: Albumin, Serum 2.3 g/dL (3.2-5.0); BUN 99 mg/dL (7-18); BUN/Creat Ratio 19.6 RATIO (10-20); Calcium,Total 8.1 mg/dL (8.5-10.1); Chloride 109 mmol/L (98-107); Creatinine, Serum 5.05 mg/dL (0.70-1.30); EST Glomerular Filtration Rate 12 mL/min (>60); Est Glom Filt Rate - Afr Amer 15 mL/min (>60); Estimated Creatinine Clearance 14.19 ml/min; Glucose 395 mg/dL (74-106); Phosphorus 6.1 mg/dL (2.5-4.9); Potassium 4.4 mmol/L (3.5-5.1); Sodium Level 147 mmol/L (136-145)
[2018-12-19] MEDS: Ipratropium/Albuterol Sulfate 3 ML AMPUL.NEB INHALATION ×3 (07:20→20:39)
[2018-12-19] MEDS: Heparin Injection (Vial) 5,000 UNIT/ML VIAL 5000 UNIT SC ×2 (09:49→22:42)
[2018-12-19] MEDS: 0.9% NaCl Peripheral Flush Adult/Peds IV (09:49)
[2018-12-19] MEDS: Senna/Docusate Sodium 1 Tablet 2 TABLET PO (09:52)
[2018-12-19] MEDS: Allopurinol 100 MG Tablet PO (09:52)
[2018-12-19] MEDS: predniSONE 20 MG Tablet 40 MG PO (09:52)
[2018-12-19] MEDS: Aspirin 81 MG TAB.CHEW PO (09:52)
[2018-12-19 11:35] LABS: Bedside Glucose 404 mg/dL (70-110)
--- NOTE | 2018-12-19 11:48 | PCM.PN.HOSP ---
Patient Problems: Active and Suspected Problems (Last Reviewed 11/05/18 @ 10:26 by Pili May) Nephrotic range proteinuria (Acute) Chest pain (Acute) EDGARDO (acute kidney injury) (Acute) Subjective: Patient appears much improved. Denies any new complaints. He is more interactive. Still has periods where he chest tightness and does not complicate readily. Seen with the at the bedside. On 2 L of oxygen Objective: Physical exam: General: Alert, Oriented x3, Cooperative, No apparent distress, - - on 2 L oxygen HEENT: Atraumatic, PERRLA, EOMI, Normocephalic, right IV dialysis catheter Oral: Dry Mucosa Neck: Supple Lungs: Clear to auscultation, Normal air movement Cardiovascular: Regular rate, Regular Rhythm, Normal S1, Normal S2, Murmur - holosystolic, 3/6 Abdomen: Bowel Sounds Present, Soft, Non Tender, Non-Distended, No Hepato-splenomegaly Extremities: Edema - trace bilateral pedal edema Skin: No rashes Musculoskeletal: No Tenderness to Palpation of Joints or Extremities Lymphatic: No Cervical, Supraclavicular, or Inguinal Adenopathy Neurological: Cranial nerves II-XII grossly intact Psych/Mental Status: Normal Affect, Appropriate Vitals/I&O's: Vital Signs Temp Pulse Resp BP Pulse Ox 97.8 F 82 20 H 159/84 H 96 12/19/18 10:00 12/19/18 10:00 12/19/18 10:00 12/19/18 10:00 12/19/18 10:00 Oxygen Flow Rate (L/min) 2 Oxygen Delivery Method Nasal Cannula Weight: 108.6 kg Body Mass Index (BMI) 39.4 Finger Stick Blood Glucose 269 Intake and Output for Last 24 Hours 12/17/18 12/18/18 12/19/18 23:59 23:59 23:59 Intake Total 315.57 / 315.57 551.92 / 551.92 198.33 / 198.33 Output Total 3950 / 5200 4350 / 4350 2099 / 2099 Balance -3634.43 / -4884.43 -3798.08 / -3798.08 -1901.67 / -1901.67 Laboratory Results 12/18/18 05:50: Magnesium 2.7 H 12/18/18 16:29: POC Glucose 362 H 12/18/18 22:17: POC Glucose 335 H 12/19/18 00:08: POC Glucose 376 H 12/19/18 05:07: POC Glucose 369 H 12/19/18 05:55: WBC 10.2, RBC 4.17 L, Hgb 11.7 L, Hct 36.4 L, MCV 87.3, MCH 28.1, MCHC 32.1, RDW Std Deviation 45.8 H, RDW Coeff of Judi 14.4, Plt Count 366, MPV 9.3, Immature Gran % (Auto) 4.200 H, Neut % (Auto) 81.4 H, Lymph % (Auto) 6.1 L, [place] % (Auto) 8.1, Eos % (Auto) 0.0, Baso % (Auto) 0.2, Absolute Neuts (auto) 8.3 H, Absolute Lymphs (auto) 0.62 L, Nucleated RBC % 0 12/19/18 05:55: Sodium 147 H, Potassium 4.4, Chloride 109 H, Carbon Dioxide 25.0, BUN 99 H, Creatinine 5.05 H, Estim Creat Clear Calc 14.19, Est GFR (MDRD) Af Amer 15 L, Est GFR (MDRD) Non-Af 12 L, BUN/Creatinine Ratio 19.6, Glucose 395 H, Calcium 8.1 L, Phosphorus 6.1 H, Albumin 2.3 L 12/19/18 11:25: POC Glucose 404 H Current Medications Acetaminophen (Tylenol) 650 mg PO Q6H PRN PRN Reason: NON CARDIAC PAIN (MOD-SEVERE) Al Hydroxide/Mg Hydroxide (Mylanta Ii) 15 - 30 ml PO Q4H PRN PRN PRN Reason: INDIGESTION Albuterol Sulfate (Ventolin Aerosols) 2.5 mg INHALATION Q2H PRN PRN PRN Reason: dyspnea, wheezing Albuterol/Ipratropium (Duoneb) 3 ml INHALATION Q6HWA.RT [facility] Last Admin: 12/19/18 07:20 Dose: 3 ml Documented by: Allopurinol (Zyloprim) 100 mg PO DAILY [facility] Last Admin: 12/19/18 09:52 Dose: 100 mg Documented by: Aspirin (Aspirin, Baby) 81 mg PO DAILY@0800 [facility] Last Admin: 12/19/18 09:52 Dose: 81 mg Documented by: Dextrose (D50w Syringe) 0 gm IV X1 PRN; Protocol PRN Reason: Hypoglycemia Glucagon () 1 mg IM .X1 PRN PRN Reason: Hypoglycemia Heparin Sodium (Porcine) (Heparin Na) 5,000 unit SC Q12 [facility] Last Admin: 12/19/18 09:49 Dose: 5,000 unit Documented by: Sodium Chloride () 250 mls @ 15 mls/hr IV .[id number] PRN PRN Reason: SALINE FLUSH Last Infusion: 12/19/18 10:00 Dose: Infused Documented by: Pantoprazole Sodium 40 mg/ (Sodium Chloride) 110 mls @ 330 mls/hr IV Q12 [facility] Last Infusion: 12/19/18 10:12 Dose: Infused Documented by: Insulin Glargine (Lantus ([facility])) 40 units SC BID [facility] Last Admin: 12/19/18 09:52 Dose: 40 u Documented by: Insulin Human Lispro (Humalog Kwikpen ([facility])) 0 unit SC Q6 [facility]; Protocol Last Admin: 12/19/18 11:26 Dose: 7 units Documented by: Magnesium Hydroxide (Milk Of Magnesia) 30 ml PO DAILY PRN PRN Reason: Constipation Metoprolol Tartrate (Lopressor (Beta Ayde)) 5 mg IV Q4 [facility] Last Admin: 12/19/18 09:49 Dose: 5 mg Documented by: Metoprolol Tartrate (Lopressor (Beta Ayde)) 50 mg PO BID [facility] Nitroglycerin (Nitrostat) 0.4 mg SUBLINGUAL Q5M PRN PRN Reason: CARDIAC/CHEST PAIN Ondansetron HCl (Zofran) 4 mg IV Q8H PRN PRN PRN Reason: NAUSEA/VOMITING Pharmacy Profile Note () 1 each NOTE X1 PRN PRN Reason: NOT SPECIFIED Polyethylene Glycol (Miralax) 17 gm PO DAILY PRN PRN PRN Reason: CONSTIPATION Prednisone () 40 mg PO DAILY@0800 [facility] Last Admin: 12/19/18 09:52 Dose: 40 mg Documented by: Senna/Docusate Sodium (Senokot-S, Christina-Colace) 2 tablet PO BID [facility] Last Admin: 12/19/18 09:52 Dose: 2 tablet Documented by: Sodium Chloride () 10 - 40 ml IV UD PRN PRN Reason: SALINE FLUSH Last Admin: 12/19/18 09:49 Dose: 10 ml Documented by: Medical Necessity - Tobacco Use Smoking Status: Former smoker Tobacco Use: Non-smoker Assessment/Plan All Active Problems (Last Reviewed 11/05/18 @ 10:26 by Pili May) Nephrotic range proteinuria (Acute) CHF exacerbation (Acute) Chest pain (Acute) EDGARDO (acute kidney injury) (Acute) Choledocholithiasis with acute cholecystitis (Acute) Abnormal LFTs (Acute) 68-year-old male with past medical history of CKD stage IV, type II DM, CAD status post CABG, status post stents, hypertension, DASHA who was admitted on 12/10/18 with progressive shortness of breath and chest discomfort. His management has been that of acute decompensated CHF. He was on IV Lasix. Patient got progressively short of breath and was intubated on 12/14/18. He has since been on a mechanical ventilator. His kidney function has also gotten progressively worse. Nephrology has been consulted. Dialysis catheter has been putting today. Plan is for dialysis today. 1. Acute hypoactive delirium/ICU delirium, resolving, will continue non-pharmacologic management and avoid anticholinergics 2. Episode of SVT, s/p adenosine, will resume on oral metoprolol, discontinue IV metoprolol 3. Acute hypoxic respiratory failure secondary to multilobar CAP, secondary to suspected gram-positive organisms, resolving Now on 2L oxygen, continue breathing treatments, encourage use of incentive spirometer 4. Multilobular CAP, secondary to suspected gram-positive organism, completed antibiotics - IV Zosyn Urine Legionella, streptococcal antigen negative, respiratory panel negative, sputum cultures negative 5. EDGARDO on CKD stage IV, creatinine is slightly elevated, hemodialysis today, nephrology allowing, labs tomorrow 6.Chronic diastolic CHF, acute CHF ruled out, initially was on Lasix, off Lasix account of worsening renal function, fluid removal at dialysis. 7. Chest pain, known CAD at this post CABG, PCI stable, medical management for now, cardiac cath later on when patient recovers On aspirin, metoprolol 8. Nonrheumatic aortic valve stenosis, moderate-severe, will need to follow-up with cardiology in the outpatient 9.Type 2 diabetes mellitus, blood sugars are uncontrolled, will resume home Lantus, ISS 10.Hypertension, controlled, resumed on oral metoprolol 11. Acute on Chronic normocytic anemia secondary to iron deficiency likely secondary to chronic GI loss, Status post 2 unit PRBC. Stool positive for occult blood, on IV PPI, will continue to hold fluoxetine 12. DVT PPx - Heparin SC 13. GI PPx- on PPI Code Visit Inpatient E&M: 17205 Subs Hosp L2
[2018-12-19] MEDS: Metoprolol Tartrate 50 MG Tablet PO ×2 (12:04→22:42)
--- NOTE | 2018-12-19 13:24 | PN_ITS ---
Subjective: Patient did okay overnight. Patient's is at the bedside and states he is much improved compared to yesterday. Patient is reportedly much more interactive. Patient states he feels subjectively improved from a breathing standpoint, but is still requiring 2 to 3 L to maintain saturations. There is some concern about whether patient would receive hemodialysis at the time of my evaluation. Patient's reports that patient was on insulin glargine 60 units twice daily in the past to keep blood sugars less than 300, but this is not been an issue recently. General: Alert, Oriented x3, Cooperative, No apparent distress, Well developed, Well nourished, - - Appears older than stated age. Speaking in full sentences. HEENT: Atraumatic, PERRLA, EOMI, Normocephalic, - - No scleral icterus or injection noted. Oral: Moist Mucosa, No Gingival or Mucosal Lesions/ Ulcerations Neck: Supple, No JVD, No Nodes, Trachea Midline, - - Right IJ hemodialysis catheter is clean, dry and intact. Lungs: No rhonchi, No wheeze, No rales, Diminished Cardiovascular: Regular rate, Regular Rhythm, Normal S1, Normal S2, Murmur - Grade 2 out of 6 systolic ejection murmur at the right sternal border, No rub noted, No Gallop Abdomen: Bowel Sounds Present, Soft, Non Tender, Non-Distended Extremities: No clubbing, No cyanosis, Edema Skin: No rashes, No breakdown Musculoskeletal: No Tenderness to Palpation of Joints or Extremities Lymphatic: No Cervical, Supraclavicular, or Inguinal Adenopathy Neurological: Cranial nerves II-XII grossly intact, Neuro grossly intact, Motor Exam 5/5 strength throughout Psych/Mental Status: Alert and oriented to time, place, person, mood and affect Vital Signs Temp Pulse Resp BP Pulse Ox 36.6 C 125 H 20 H 159/84 H 96 12/19/18 10:12/19/18 12:30 12/19/18 10:12/19/18 10:12/19/18 10:00 Oxygen Flow Rate (L/min) 2 Oxygen Delivery Method Nasal Cannula Weight: 108.6 kg Body Mass Index (BMI) 39.4 Finger Stick Blood Glucose 269 Intake and Output for Last 24 Hours 12/17/18 12/18/18 12/19/18 23:59 23:59 23:59 Intake Total 315.57 / 315.57 551.92 / 551.92 438.33 / 438.33 Output Total 3950 / 5200 4350 / 4350 3300 / 3300 Balance -3634.43 / -4884.43 -3798.08 / -3798.08 -2861.67 / -2861.67 Labs (Last 48 Hours) 12/17/18 12/17/18 12/18/18 18:04 21:29 00:55 WBC RBC Hgb Hct MCV MCH MCHC RDW Std Deviation RDW Coeff of Judi Plt Count MPV Immature Gran % (Auto) Neut % (Auto) Lymph % (Auto) [place] % (Auto) Eos % (Auto) Baso % (Auto) Absolute Neuts (auto) Absolute Lymphs (auto) Nucleated RBC % Sodium Potassium Chloride Carbon Dioxide BUN Creatinine Estim Creat Clear Calc Est GFR (MDRD) Af Amer Est GFR (MDRD) Non-Af BUN/Creatinine Ratio Glucose Calcium Phosphorus Magnesium Albumin POC Glucose 234 H 260 H 291 H 12/18/18 12/18/18 12/18/18 05:48 05:50 05:50 WBC 11.1 H RBC 4.00 L Hgb 11.1 L Hct 34.5 L MCV 86.3 MCH 27.8 MCHC 32.2 RDW Std Deviation 44.6 H RDW Coeff of Judi 14.2 Plt Count 348 MPV 9.1 Immature Gran % (Auto) 3.100 H Neut % (Auto) 80.4 H Lymph % (Auto) 6.1 L [place] % (Auto) 10.3 H Eos % (Auto) 0.0 Baso % (Auto) 0.1 Absolute Neuts (auto) 8.9 H Absolute Lymphs (auto) 0.68 L Nucleated RBC % 0 Sodium 140 Potassium 4.5 Chloride 101 Carbon Dioxide 22.0 BUN 73 H Creatinine 4.57 H Estim Creat Clear Calc 15.69 Est GFR (MDRD) Af Amer 17 L Est GFR (MDRD) Non-Af 14 L BUN/Creatinine Ratio 16.0 Glucose 332 H Calcium 7.4 L Phosphorus 5.8 H Magnesium Albumin 2.2 L POC Glucose 283 H 12/18/18 12/18/18 12/18/18 05:50 11:32 16:29 WBC RBC Hgb Hct MCV MCH MCHC RDW Std Deviation RDW Coeff of Ujdi Plt Count MPV Immature Gran % (Auto) Neut % (Auto) Lymph % (Auto) [place] % (Auto) Eos % (Auto) Baso % (Auto) Absolute Neuts (auto) Absolute Lymphs (auto) Nucleated RBC % Sodium Potassium Chloride Carbon Dioxide BUN Creatinine Estim Creat Clear Calc Est GFR (MDRD) Af Amer Est GFR (MDRD) Non-Af BUN/Creatinine Ratio Glucose Calcium Phosphorus Magnesium 2.7 H Albumin POC Glucose 373 H 362 H 12/18/18 12/19/18 12/19/18 22:17 00:08 05:07 WBC RBC Hgb Hct MCV MCH MCHC RDW Std Deviation RDW Coeff of Judi Plt Count MPV Immature Gran % (Auto) Neut % (Auto) Lymph % (Auto) [place] % (Auto) Eos % (Auto) Baso % (Auto) Absolute Neuts (auto) Absolute Lymphs (auto) Nucleated RBC % Sodium Potassium Chloride Carbon Dioxide BUN Creatinine Estim Creat Clear Calc Est GFR (MDRD) Af Amer Est GFR (MDRD) Non-Af BUN/Creatinine Ratio Glucose Calcium Phosphorus Magnesium Albumin POC Glucose 335 H 376 H 369 H 12/19/18 12/19/18 12/19/18 05:55 05:55 11:25 WBC 10.2 RBC 4.17 L Hgb 11.7 L Hct 36.4 L MCV 87.3 MCH 28.1 MCHC 32.1 RDW Std Deviation 45.8 H RDW Coeff of Judi 14.4 Plt Count 366 MPV 9.3 Immature Gran % (Auto) 4.200 H Neut % (Auto) 81.4 H Lymph % (Auto) 6.1 L [place] % (Auto) 8.1 Eos % (Auto) 0.0 Baso % (Auto) 0.2 Absolute Neuts (auto) 8.3 H Absolute Lymphs (auto) 0.62 L Nucleated RBC % 0 Sodium 147 H Potassium 4.4 Chloride 109 H Carbon Dioxide 25.0 BUN 99 H Creatinine 5.05 H Estim Creat Clear Calc 14.19 Est GFR (MDRD) Af Amer 15 L Est GFR (MDRD) Non-Af 12 L BUN/Creatinine Ratio 19.6 Glucose 395 H Calcium 8.1 L Phosphorus 6.1 H Magnesium Albumin 2.3 L POC Glucose 404 H Medical Necessity - Tobacco Use Smoking Status: Former smoker Tobacco Use: Non-smoker Assessment/Plan All Active Problems (Last Reviewed 11/05/18 @ 10:26 by Pili May) Nephrotic range proteinuria (Acute) CHF exacerbation (Acute) Chest pain (Acute) EDGARDO (acute kidney injury) (Acute) Choledocholithiasis with acute cholecystitis (Acute) Abnormal LFTs (Acute) RECOMMENDATIONS: 1. Continue antibiotic's with plans to complete a 7-day treatment course. 2. Continue to wean steroids over the next 12 to 14 days 3. Await speech therapy evaluation prior to advancing diet. 4. Recommend continued use of BiPAP therapy with sleep. 5. Wean supplemental oxygen to maintain saturations at or above 90%. 6. Encourage incentive parameter use and mobilize patient as tolerated. 7. Increase insulin therapy IMPRESSIONS: 1. Acute hypoxemic respiratory failure Patient appears to be doing well at this time. Patient still requiring minimal nasal cannula oxygen to maintain saturations. Clinical suspicion for a multifactorial etiology of respiratory failure including congestive heart failure and pneumonia. Patient should complete a total of 7 days of antibiotics. Steroids can be weaned over the next 12 to 14 days. Increase act ivity as tolerated and incentive spirometer should help with atelectasis. Patient should continue with BiPAP therapy while in the hospital. 2. Coronary artery disease/heart failure with preserved ejection fraction/valvular heart disease The patient does not appear to be overtly volume overloaded at this time. Cardiology is currently following. Continue volume optimization via hemodialysis. 3. Acute on chronic kidney disease Suspect prerenal etiology due to use of diuretics, coupled with chronic medical renal disease. Nephrology is following. Hemodialysis per nephrology. 4. Chronic anemia The patient has baseline chronic anemia. In his setting of coronary artery disease, the patient was transfused packed red blood cells. At the current time, there are no signs of overt blood loss. There is no indication for transfusion of additional blood products. 5. Obstructive sleep apnea Resume nocturnal Pap therapy. Given the patient's weight gain over the last year, he may require a re-titration study and subsequent increase in his pressure support. This can be completed on an outpatient basis. 6. Diabetes mellitus/hypertension/hyperlipidemia/anxiety/depression/CODE STATUS Complicates care, management, recovery and prognosis. Step up insulin therapy. CODE STATUS- FULL CODE. Code Visit Inpatient E&M: 92791 [facility] Hosp L3
[2018-12-19] MEDS: Insulin Lispro 100 UNIT/ML INSULN.PEN 10 UNIT SC (13:37)
[2018-12-19 13:51] LABS: Bedside Glucose 417 mg/dL (70-110)
--- NOTE | 2018-12-19 15:04 | PN.RENAL_ITS ---
Patient Problems: Active and Suspected Problems (Last Reviewed 11/05/18 @ 10:26 by Pili May) Nephrotic range proteinuria (Acute) Chest pain (Acute) EDGARDO (acute kidney injury) (Acute) Subjective: Pt has no nausea No vomiting. No SOB Seen during HD session today. Tolerating HD session well - Physical Exam General: Alert, No apparent distress HEENT: Atraumatic Oral: Moist Mucosa Neck: Supple, No JVD Lungs: Clear to auscultation, Normal air movement, No rhonchi, No wheeze Cardiovascular: Regular rate, Regular Rhythm, Normal S1, Normal S2 Abdomen: Bowel Sounds Present, Soft, Non Tender, Non-Distended Extremities: No clubbing, No cyanosis, No edema Skin: No rashes Lymphatic: No Cervical, Supraclavicular, or Inguinal Adenopathy Neurological: Cranial nerves II-XII grossly intact, Neuro grossly intact Psych/Mental Status: Appropriate Vital Signs Temp Pulse Resp BP Pulse Ox 97.8 F 125 H 19 H 159/84 H 96 12/19/18 10:00 12/19/18 12:30 12/19/18 14:25 12/19/18 10:00 12/19/18 10:00 Oxygen Flow Rate (L/min) 2 Oxygen Delivery Method Nasal Cannula Weight: 108.6 kg Body Mass Index (BMI) 39.4 Finger Stick Blood Glucose 269 Intake and Output for Last 24 Hours 12/17/18 12/18/18 12/19/18 23:59 23:59 23:59 Intake Total 315.57 / 315.57 551.92 / 551.92 438.33 / 438.33 Output Total 3950 / 5200 4350 / 4350 3300 / 3300 Balance -3634.43 / -4884.43 -3798.08 / -3798.08 -2861.67 / -2861.67 Laboratory Tests Past 24 Hrs 12/19/18 12/19/18 05:55 05:55 WBC 10.2 RBC 4.17 L Hgb 11.7 L Hct 36.4 L MCV 87.3 MCH 28.1 MCHC 32.1 RDW Std Deviation 45.8 H RDW Coeff of Judi 14.4 Plt Count 366 MPV 9.3 Immature Gran % (Auto) 4.200 H Neut % (Auto) 81.4 H Lymph % (Auto) 6.1 L [place] % (Auto) 8.1 Eos % (Auto) 0.0 Baso % (Auto) 0.2 Absolute Neuts (auto) 8.3 H Absolute Lymphs (auto) 0.62 L Nucleated RBC % 0 Sodium 147 H Potassium 4.4 Chloride 109 H Carbon Dioxide 25.0 BUN 99 H Creatinine 5.05 H Estim Creat Clear Calc 14.19 Est GFR (MDRD) Af Amer 15 L Est GFR (MDRD) Non-Af 12 L BUN/Creatinine Ratio 19.6 Glucose 395 H Calcium 8.1 L Phosphorus 6.1 H Albumin 2.3 L POC Glucose 12/19/18 12/19/18 12/19/18 13:36 11:25 05:07 POC Glucose 417 H 404 H 369 H 12/19/18 12/18/18 12/18/18 00:08 22:17 16:29 POC Glucose 376 H 335 H 362 H Medical Necessity - Tobacco Use Smoking Status: Former smoker Tobacco Use: Non-smoker Assessment/Plan All Active Problems (Last Reviewed 11/05/18 @ 10:26 by Pili May) Nephrotic range proteinuria (Acute) CHF exacerbation (Acute) Chest pain (Acute) EDGARDO (acute kidney injury) (Acute) Choledocholithiasis with acute cholecystitis (Acute) Abnormal LFTs (Acute) 1- EDGARDO on CKD stage 4. Baseline Cr ~ 2.6-2.7 mg/dL from most probably DNP. Pt has significant proteinuria. Pro/Cr was a 11 mg/mg. EDGARDO is from ATN related to sepsis. Pt is now HD dependent for metabolic and fluid support. HD initiated on 12/15 Pt is non oliguric. No solute clearance. BUN and Cr increased. HD session today for 3 hours and 30 minutes, BQ 300 DQ 700 UF none If no solute clearance by Saturday, Will consult surgeon to place tunneled cath Keep MAP > 65. Avoid IV contrast Will continue to monitor for kidney function recovery. continue accurate I/O with daily renal function panel 2- Hyperkalemia : Resolved with hemodialysis 3-High anion gap acidosis. from EDGARDO. resolved with HD 4- Hyperphosphatemia: from EDGARDO. P level is improving with HD 5- ARF from pneumonia and ARDS Vs CHF Improved. extubated. On RA Thank you for allowing me to participate in Mr. Gardner's care Renal team will continue to follow Please call if any question at [phone] d/w Dr.Paintsil Carolyn Joyce MD
--- NOTE | 2018-12-19 15:19 | PCM.PN.CARD ---
Subjectve: Patient has improved significantly compared to when we last saw him a few days back. He did go into SVT and responded well to adenosine. His metoprolol which had been on hold has now been restarted. Objective: Vital Signs Temp Pulse Resp BP Pulse Ox 97.8 F 73 19 H 159/84 H 96 12/19/18 10:00 12/19/18 15:00 12/19/18 14:25 12/19/18 10:00 12/19/18 10:00 Oxygen Flow Rate (L/min) 2 Oxygen Delivery Method Nasal Cannula Weight: 239 lb 6.752 oz Body Mass Index (BMI) 39.4 Finger Stick Blood Glucose 269 Intake and Output for Last 24 Hours 12/17/18 12/18/18 12/19/18 23:59 23:59 23:59 Intake Total 315.57 / 315.57 551.92 / 551.92 438.33 / 438.33 Output Total 3950 / 5200 4350 / 4350 3300 / 3300 Balance -3634.43 / -4884.43 -3798.08 / -3798.08 -2861.67 / -2861.67 General: Awake, Alert, Oriented x 3 HEENT: Atraumatic Oral: Moist Mucosa Neck: Supple Lungs: Clear to auscultation Cardiovascular: Regular Rhythm Abdomen: Soft Extremities: No edema Skin: No Rashes Psych/Mental Status: Appropriate 12/19/18 05:55: WBC 10.2, RBC 4.17 L, Hgb 11.7 L, Hct 36.4 L, MCV 87.3, MCH 28.1, MCHC 32.1, Plt Count 366, MPV 9.3, Immature Gran % (Auto) 4.200 H, Neut % (Auto) 81.4 H, Lymph % (Auto) 6.1 L, [place] % (Auto) 8.1, Eos % (Auto) 0.0, Baso % (Auto) 0.2, Absolute Neuts (auto) 8.3 H, Nucleated RBC % 0 12/19/18 05:55: Sodium 147 H, Potassium 4.4, Chloride 109 H, Carbon Dioxide 25.0, BUN 99 H, Creatinine 5.05 H, Est GFR (MDRD) Af Amer 15 L, Est GFR (MDRD) Non-Af 12 L, BUN/Creatinine Ratio 19.6, Glucose 395 H, Calcium 8.1 L, Phosphorus 6.1 H Rhythm: EKG: ECHO: Stress Test: Cardiac Cath: PCI: CT Surgery: Holter monitor: EPS: PPM: CXR: Chest CT Scan: Medical Necessity - Tobacco Use Smoking Status: Former smoker Tobacco Use: Non-smoker Assessment/Plan 1. SVT: Patient converted with IV adenosine. Metoprolol has been restarted. Continue metoprolol at current dose. This appears to be his home dose which he was tolerating well. If required we can go up on this dose. 2. CHF: Patient is compensated from a cardiac failure standpoint.
[2018-12-19 17:10] LABS: Bedside Glucose 194 mg/dL (70-110)
[2018-12-19] MEDS: Heparin 10,000 UNITS/10 ML Vial IV (18:03)
[2018-12-19 22:46] LABS: Bedside Glucose 272 mg/dL (70-110)
[2018-12-20] VITALS (19 sets, daily range): BP systolic 100–143; BP diastolic 60–79; PULSE 55–124; RESP 12–20; TEMP 36.7–37; O2SAT 95–99
--- NOTE | 2018-12-20 02:47 | CPS ---
Pt. requested to come off BiPAP. Put back on NC.
[2018-12-20] MEDS: Insulin Lispro 100 UNIT/ML INSULN.PEN SC ×4 (06:28→22:07)
[2018-12-20 06:32] LABS: Absolute Lymphocyte Count 1.33 X10^3/uL (0.83-4.51); Absolute Neutrophil Count 10.4 X10^3/uL (2.0-7.7); Basophil# 0.01 X10^3/uL; Basophil% 0.1 % (0-1); Eosinophil# 0.06 X10^3/uL; Eosinophils% 0.5 % (0-5); Hematocrit 36.2 % (40-54); Hemoglobin 11.6 g/dL (13.0-16.5); Lymphocyte # 1.33 X10^3/ul (4.0); Mean Corpuscular Hgb 28.1 pg (27.0-32.0); Mean Corpuscular Volume 87.7 fL (80-94); Mean Platelet Vol. 9.3 fl (6.2-12.0); Monocyte# 1.16 X10^3/uL; Monocyte% 8.7 % (0-10); NRBC Flagged by Analyzer 0 % (0-5); Neutrophil # 10.44 X10^3/uL (2.7-7.7); Neutrophil % 78.7 % (47-70); Platelet Count 358 K/mm3 (150-450); RBC Distribution Width CV 13.8 % (11.6-14.6); RBC Distribution Width SD 43.8 fl (35.1-43.9); Red Blood Count 4.13 M/mm3 (4.6-6.2); White Blood Count 13.3 K/mm3 (4.4-11.0)
[2018-12-20 06:35] LABS: Bedside Glucose 187 mg/dL (70-110)
[2018-12-20] MEDS: Ipratropium/Albuterol Sulfate 3 ML AMPUL.NEB INHALATION ×3 (07:00→18:38)
[2018-12-20 07:04] LABS: Anion Gap 14 (5-15); BUN 70 mg/dL (7-18); BUN/Creat Ratio 15.1 RATIO (10-20); Calcium,Total 7.9 mg/dL (8.5-10.1); Chloride 103 mmol/L (98-107); Creatinine, Serum 4.63 mg/dL (0.70-1.30); EST Glomerular Filtration Rate 14 mL/min (>60); Est Glom Filt Rate - Afr Amer 16 mL/min (>60); Estimated Creatinine Clearance 15.48 ml/min; Glucose 190 mg/dL (74-106); Potassium 4.1 mmol/L (3.5-5.1); Sodium Level 142 mmol/L (136-145)
--- NOTE | 2018-12-20 08:05 | PCM.PN.INT ---
Subjective: Patient did well overnight. Patient feels subjectively improved compared to yesterday. Patient did have hemodialysis yesterday and tolerated this well. Patient states pain is well controlled. Blood sugars have been much improved following increase in basal insulin. Patient does report that he did not get out of bed yesterday for any extended period of time. General: Alert, Oriented x3, Cooperative, No apparent distress, - - Appears older than stated age. Speaking in full sentences. HEENT: Atraumatic, PERRLA, EOMI, Normocephalic, - - Scleral injection without icterus Oral: Moist Mucosa, No Gingival or Mucosal Lesions/ Ulcerations Neck: Supple, No Nodes, Trachea Midline, - - Temporary HD line is clean, dry and intact Lungs: No rhonchi, No wheeze, No rales, Diminished, - - Symmetric expansion. Cardiovascular: Regular rate, Regular Rhythm, Normal S1, Normal S2, No murmurs, No rub noted, No Gallop Abdomen: Bowel Sounds Present, Soft, Non Tender, Non-Distended, Obese Extremities: No clubbing, No cyanosis, Capillary Refill Less than 3 Seconds, Edema Skin: No rashes, No breakdown Musculoskeletal: No Tenderness to Palpation of Joints or Extremities Lymphatic: No Cervical, Supraclavicular, or Inguinal Adenopathy Neurological: Cranial nerves II-XII grossly intact, Neuro grossly intact, Motor Exam 5/5 strength throughout Psych/Mental Status: Alert and oriented to time, place, person, mood and affect Vital Signs Temp Pulse Resp BP Pulse Ox 36.9 C 70 18 143/69 H 97 12/20/18 03:56 12/20/18 07:23 12/20/18 07:00 12/20/18 03:56 12/20/18 07:00 Oxygen Flow Rate (L/min) 1 Oxygen Delivery Method Nasal Cannula Weight: 107.7 kg Body Mass Index (BMI) 39.4 Finger Stick Blood Glucose 269 Intake and Output for Last 24 Hours 12/18/18 12/19/18 12/20/18 23:59 23:59 23:59 Intake Total 551.92 / 551.92 1268.33 / 1268.33 120 / 120 Output Total 4350 / 4350 4000 / 4000 Balance -3798.08 / -3798.08 -2731.67 / -2731.67 120 / 120 Labs (Last 48 Hours) 12/18/18 12/18/18 12/18/18 05:50 11:32 16:29 WBC RBC Hgb Hct MCV MCH MCHC RDW Std Deviation RDW Coeff of Judi Plt Count MPV Immature Gran % (Auto) Neut % (Auto) Lymph % (Auto) [place] % (Auto) Eos % (Auto) Baso % (Auto) Absolute Neuts (auto) Absolute Lymphs (auto) Nucleated RBC % Sodium Potassium Chloride Carbon Dioxide Anion Gap BUN Creatinine Estim Creat Clear Calc Est GFR (MDRD) Af Amer Est GFR (MDRD) Non-Af BUN/Creatinine Ratio Glucose Calcium Phosphorus Magnesium 2.7 H Albumin POC Glucose 373 H 362 H 12/18/18 12/19/18 12/19/18 22:17 00:08 05:07 WBC RBC Hgb Hct MCV MCH MCHC RDW Std Deviation RDW Coeff of Judi Plt Count MPV Immature Gran % (Auto) Neut % (Auto) Lymph % (Auto) [place] % (Auto) Eos % (Auto) Baso % (Auto) Absolute Neuts (auto) Absolute Lymphs (auto) Nucleated RBC % Sodium Potassium Chloride Carbon Dioxide Anion Gap BUN Creatinine Estim Creat Clear Calc Est GFR (MDRD) Af Amer Est GFR (MDRD) Non-Af BUN/Creatinine Ratio Glucose Calcium Phosphorus Magnesium Albumin POC Glucose 335 H 376 H 369 H 12/19/18 12/19/18 12/19/18 05:55 05:55 11:25 WBC 10.2 RBC 4.17 L Hgb 11.7 L Hct 36.4 L MCV 87.3 MCH 28.1 MCHC 32.1 RDW Std Deviation 45.8 H RDW Coeff of Judi 14.4 Plt Count 366 MPV 9.3 Immature Gran % (Auto) 4.200 H Neut % (Auto) 81.4 H Lymph % (Auto) 6.1 L [place] % (Auto) 8.1 Eos % (Auto) 0.0 Baso % (Auto) 0.2 Absolute Neuts (auto) 8.3 H Absolute Lymphs (auto) 0.62 L Nucleated RBC % 0 Sodium 147 H Potassium 4.4 Chloride 109 H Carbon Dioxide 25.0 Anion Gap BUN 99 H Creatinine 5.05 H Estim Creat Clear Calc 14.19 Est GFR (MDRD) Af Amer 15 L Est GFR (MDRD) Non-Af 12 L BUN/Creatinine Ratio 19.6 Glucose 395 H Calcium 8.1 L Phosphorus 6.1 H Magnesium Albumin 2.3 L POC Glucose 404 H 12/19/18 12/19/18 12/19/18 13:36 17:03 22:32 WBC RBC Hgb Hct MCV MCH MCHC RDW Std Deviation RDW Coeff of Judi Plt Count MPV Immature Gran % (Auto) Neut % (Auto) Lymph % (Auto) [place] % (Auto) Eos % (Auto) Baso % (Auto) Absolute Neuts (auto) Absolute Lymphs (auto) Nucleated RBC % Sodium Potassium Chloride Carbon Dioxide Anion Gap BUN Creatinine Estim Creat Clear Calc Est GFR (MDRD) Af Amer Est GFR (MDRD) Non-Af BUN/Creatinine Ratio Glucose Calcium Phosphorus Magnesium Albumin POC Glucose 417 H 194 H 272 H 12/20/18 12/20/18 12/20/18 06:13 06:13 06:25 WBC 13.3 H RBC 4.13 L Hgb 11.6 L Hct 36.2 L MCV 87.7 MCH 28.1 MCHC 32.0 RDW Std Deviation 43.8 RDW Coeff of Judi 13.8 Plt Count 358 MPV 9.3 Immature Gran % (Auto) 2.000 H Neut % (Auto) 78.7 H Lymph % (Auto) 10.0 L [place] % (Auto) 8.7 Eos % (Auto) 0.5 Baso % (Auto) 0.1 Absolute Neuts (auto) 10.4 H Absolute Lymphs (auto) 1.33 Nucleated RBC % 0 Sodium 142 Potassium 4.1 Chloride 103 Carbon Dioxide 25.0 Anion Gap 14 BUN 70 H Creatinine 4.63 H Estim Creat Clear Calc 15.48 Est GFR (MDRD) Af Amer 16 L Est GFR (MDRD) Non-Af 14 L BUN/Creatinine Ratio 15.1 Glucose 190 H Calcium 7.9 L Phosphorus Magnesium Albumin POC Glucose 187 H Medical Necessity - Tobacco Use Smoking Status: Former smoker Tobacco Use: Non-smoker Assessment/Plan All Active Problems (Last Reviewed 11/05/18 @ 10:26 by Pili May) Nephrotic range proteinuria (Acute) CHF exacerbation (Acute) Chest pain (Acute) EDGARDO (acute kidney injury) (Acute) Choledocholithiasis with acute cholecystitis (Acute) Abnormal LFTs (Acute) RECOMMENDATIONS: 1. Continue antibiotic's with plans to complete a 7-day treatment course. 2. Continue to wean steroids over the next 12 to 14 days 3. May need to adjust basal insulin with weaning of steroid therapy. 4. Recommend continued use of BiPAP therapy with sleep. 5. Wean supplemental oxygen to maintain saturations at or above 90%. 6. Encourage incentive parameter use and mobilize patient as tolerated. 7. Hemodialysis per nephrology IMPRESSIONS: 1. Acute hypoxemic respiratory failure Patient appears to be doing well at this time. Patient still requiring minimal nasal cannula oxygen to maintain saturations. Clinical suspicion for a multifactorial etiology of respiratory failure including congestive heart failure, atelectasis and pneumonia. Patient should complete a total of 7 days of antibiotics. Steroids can be weaned over the next 12 to 14 days. Increase activity as tolerated and incentive spirometer should help with atelectasis. Patient should continue with BiPAP therapy while in the hospital. Patient will need a walking oximetry prior to discharge 2. Coronary artery disease/heart failure with preserved ejection fraction/valvular heart disease The patient does not appear to be overtly volume overloaded at this time. Cardiology is currently following. Continue volume optimization via hemodialysis. 3. Acute on chronic kidney disease Suspect prerenal etiology due to use of diuretics, coupled with chronic medical renal disease. Nephrology is following. Hemodialysis per nephrology. 4. Chronic anemia The patient has baseline chronic anemia. In his setting of coronary artery disease, the patient was transfused packed red blood cells. At the current time, there are no signs of overt blood loss. There is no indication for transfusion of additional blood products. 5. Obstructive sleep apnea Resume nocturnal Pap therapy. Given the patient's weight gain over the last year, he may require a re-titration study and subsequent increase in his pressure support. This can be completed on an outpatient basis. 6. Diabetes mellitus/hypertension/hyperlipidemia/anxiety/depression/CODE STATUS Complicates care, management, recovery and prognosis. Step up insulin therapy. CODE STATUS- FULL CODE. Code Visit Inpatient E&M: 89602 Subs Hosp L2
[2018-12-20] MEDS: Aspirin 81 MG TAB.CHEW PO (08:34)
[2018-12-20] MEDS: predniSONE 20 MG Tablet 40 MG PO (08:34)
[2018-12-20] MEDS: Heparin Injection (Vial) 5,000 UNIT/ML VIAL 5000 UNIT SC ×2 (09:40→22:10)
[2018-12-20] MEDS: Metoprolol Tartrate 50 MG Tablet PO (09:42)
[2018-12-20] MEDS: Allopurinol 100 MG Tablet PO (09:42)
--- NOTE | 2018-12-20 09:44 | PN_ITS ---
Patient Problems: Active and Suspected Problems (Last Reviewed 11/05/18 @ 10:26 by Pili May) Nephrotic range proteinuria (Acute) Chest pain (Acute) EDGARDO (acute kidney injury) (Acute) Subjective: Patient was seen and examined. His is at the bedside. He is off oxygen. He is more alert and oriented. Able to carry on conversations with him. He denied any complaints. Objective: Physical exam: General: Alert, Oriented x3, Cooperative, No apparent distress, - - on 2 L oxygen HEENT: Atraumatic, PERRLA, EOMI, Normocephalic, right IV dialysis catheter Oral: Dry Mucosa Neck: Supple Lungs: Clear to auscultation, Normal air movement Cardiovascular: Regular rate, Regular Rhythm, Normal S1, Normal S2, Murmur - holosystolic, 3/6 Abdomen: Bowel Sounds Present, Soft, Non Tender, Non-Distended, No Hepato- splenomegaly Extremities: Edema - trace bilateral pedal edema Skin: No rashes Musculoskeletal: No Tenderness to Palpation of Joints or Extremities Lymphatic: No Cervical, Supraclavicular, or Inguinal Adenopathy Neurological: Cranial nerves II-XII grossly intact Psych/Mental Status: Normal Affect, Appropriate Vitals/I&O's: Vital Signs Temp Pulse Resp BP Pulse Ox 98.4 F 73 16 132/79 H 96 12/20/18 09:30 12/20/18 09:30 12/20/18 09:30 12/20/18 09:30 12/20/18 09:32 Oxygen Flow Rate (L/min) 1 Oxygen Delivery Method Room Air Weight: 107.7 kg Body Mass Index (BMI) 39.4 Finger Stick Blood Glucose 269 Intake and Output for Last 24 Hours 12/18/18 12/19/18 12/20/18 23:59 23:59 23:59 Intake Total 551.92 / 551.92 1268.33 / 1268.33 120 / 120 Output Total 4350 / 4350 4000 / 4000 Balance -3798.08 / -3798.08 -2731.67 / -2731.67 120 / 120 Laboratory Results 12/19/18 11:25: POC Glucose 404 H 12/19/18 13:36: POC Glucose 417 H 12/19/18 17:03: POC Glucose 194 H 12/19/18 22:32: POC Glucose 272 H 12/20/18 06:13: WBC 13.3 H, RBC 4.13 L, Hgb 11.6 L, Hct 36.2 L, MCV 87.7, MCH 28.1, MCHC 32.0, RDW Std Deviation 43.8, RDW Coeff of Judi 13.8, Plt Count 358, MPV 9.3, Immature Gran % (Auto) 2.000 H, Neut % (Auto) 78.7 H, Lymph % (Auto) 10.0 L, [place] % (Auto) 8.7, Eos % (Auto) 0.5, Baso % (Auto) 0.1, Absolute Neuts (auto) 10.4 H, Absolute Lymphs (auto) 1.33, Nucleated RBC % 0 12/20/18 06:13: Sodium 142, Potassium 4.1, Chloride 103, Carbon Dioxide 25.0, Anion Gap 14, BUN 70 H, Creatinine 4.63 H, Estim Creat Clear Calc 15.48, Est GFR (MDRD) Af Amer 16 L, Est GFR (MDRD) Non-Af 14 L, BUN/Creatinine Ratio 15.1, Glucose 190 H, Calcium 7.9 L 12/20/18 06:25: POC Glucose 187 H Current Medications Acetaminophen (Tylenol) 650 mg PO Q6H PRN PRN Reason: NON CARDIAC PAIN (MOD-SEVERE) Al Hydroxide/Mg Hydroxide (Mylanta Ii) 15 - 30 ml PO Q4H PRN PRN PRN Reason: INDIGESTION Albuterol Sulfate (Ventolin Aerosols) 2.5 mg INHALATION Q2H PRN PRN PRN Reason: dyspnea, wheezing Albuterol/Ipratropium (Duoneb) 3 ml INHALATION Q6HWA.RT [facility] Last Admin: 12/20/18 07:00 Dose: 3 ml Documented by: Allopurinol (Zyloprim) 100 mg PO DAILY [facility] Last Admin: 12/19/18 09:52 Dose: 100 mg Documented by: Aspirin (Aspirin, Baby) 81 mg PO DAILY@0800 [facility] Last Admin: 12/20/18 08:34 Dose: 81 mg Documented by: Dextrose (D50w Syringe) 0 gm IV X1 PRN; Protocol PRN Reason: Hypoglycemia Glucagon () 1 mg IM .X1 PRN PRN Reason: Hypoglycemia Heparin Sodium (Porcine) (Heparin Na) 5,000 unit SC Q12 [facility] Last Admin: 12/19/18 22:42 Dose: 5,000 unit Documented by: Sodium Chloride () 250 mls @ 15 mls/hr IV .[id number] PRN PRN Reason: SALINE FLUSH Last Infusion: 12/19/18 10:00 Dose: Infused Documented by: Pantoprazole Sodium 40 mg/ (Sodium Chloride) 110 mls @ 330 mls/hr IV Q12 [facility] Last Infusion: 12/19/18 23:11 Dose: Infused Documented by: Insulin Glargine (Lantus (Bk)) 50 units SC BID [facility] Last Admin: 12/19/18 22:41 Dose: 50 u Documented by: Insulin Human Lispro (Humalog Kwikpen ([facility])) 0 unit SC ACHS [facility]; Protocol Last Admin: 12/20/18 06:28 Dose: 1 u Documented by: Magnesium Hydroxide (Milk Of Magnesia) 30 ml PO DAILY PRN PRN Reason: Constipation Metoprolol Tartrate (Lopressor (Beta Ayde)) 50 mg PO BID [facility] Last Admin: 12/19/18 22:42 Dose: 50 mg Documented by: Nitroglycerin (Nitrostat) 0.4 mg SUBLINGUAL Q5M PRN PRN Reason: CARDIAC/CHEST PAIN Ondansetron HCl (Zofran) 4 mg IV Q8H PRN PRN PRN Reason: NAUSEA/VOMITING Pharmacy Profile Note () 1 each NOTE X1 PRN PRN Reason: NOT SPECIFIED Polyethylene Glycol (Miralax) 17 gm PO DAILY PRN PRN PRN Reason: CONSTIPATION Prednisone () 40 mg PO DAILY@0800 [facility] Last Admin: 12/20/18 08:34 Dose: 40 mg Documented by: Senna/Docusate Sodium (Senokot-S, Christina-Colace) 2 tablet PO BID [facility] Last Admin: 12/19/18 22:42 Dose: Not Given Documented by: Sodium Chloride () 10 - 40 ml IV UD PRN PRN Reason: SALINE FLUSH Last Admin: 12/19/18 09:49 Dose: 10 ml Documented by: Medical Necessity - Tobacco Use Smoking Status: Former smoker Tobacco Use: Non-smoker Assessment/Plan All Active Problems (Last Reviewed 11/05/18 @ 10:26 by Pili May) Nephrotic range proteinuria (Acute) CHF exacerbation (Acute) Chest pain (Acute) EDGARDO (acute kidney injury) (Acute) Choledocholithiasis with acute cholecystitis (Acute) Abnormal LFTs (Acute) 68-year-old male with past medical history of CKD stage IV, type II DM, CAD status post CABG, status post stents, hypertension, DASHA who was admitted on 12/10/18 with progressive shortness of breath and chest discomfort. His management has been that of acute decompensated CHF. He was on IV Lasix. Patient got progressively short of breath and was intubated on 12/14/18. He was started on dialysis, received call dialysis session. Last session was 12/20/18. Subsequently was extubated, has been diuresing very well, creatinine is down. Patient was confused after extubation in the ICU. 1. Acute hypoactive delirium/ICU delirium, resolved, will continue non- pharmacologic management and avoid anticholinergics 2. Episode of SVT, s/p adenosine, will resume on oral metoprolol, discontinue IV metoprolol 3. Acute hypoxic respiratory failure secondary to multilobar CAP, secondary to suspected gram-positive organisms, RESOLVED Continue prn breathing treatments, encourage use of incentive spirometer 4. Multilobular CAP, secondary to suspected gram-positive organism, completed antibiotics - IV Zosyn Urine Legionella, streptococcal antigen negative, respiratory panel negative, sputum cultures negative 5. EDGARDO on CKD stage IV, creatinine is 4.6 today from 5.05, received dialysis yesterday, nephrology allowing, labs tomorrow 6.Chronic diastolic CHF, acute CHF ruled out, initially was on Lasix, off Lasix account of worsening renal function, fluid removal at dialysis. 7. Chest pain, known CAD at this post CABG, PCI stable, medical management for now, cardiac cath later on when patient recovers On aspirin, metoprolol 8. Nonrheumatic aortic valve stenosis, moderate-severe, will need to follow-up with cardiology in the outpatient 9.Type 2 diabetes mellitus, blood sugars are uncontrolled, will resume home Lantus, ISS 10.Hypertension, controlled, resumed on oral metoprolol 11. Acute on Chronic normocytic anemia secondary to iron deficiency likely secondary to chronic GI loss, Status post 2 unit PRBC. Stool positive for occult blood, on IV PPI, will continue to hold fluoxetine 12. DVT PPx - Heparin SC 13. GI PPx- on PPI Code Visit Inpatient E&M: 04868 Subs Hosp L2
[2018-12-20 14:11] LABS: Bedside Glucose 294 mg/dL (70-110)
[2018-12-20] MEDS: Metoprolol Tartrate 25 MG Tablet PO (16:53)
[2018-12-20 18:11] LABS: Bedside Glucose 400 mg/dL (70-110)
--- NOTE | 2018-12-20 21:59 | NURSING ---
STAT lab backup for blood glucose ordered for BGT of 460. aware of blood glucose level. Lab present now.
[2018-12-20] MEDS: 0.9% NaCl IVPB Med Flush (250 mL) 15 ML IV (22:20)
[2018-12-20] MEDS: 0.9% NaCl Peripheral Flush Adult/Peds IV (22:20)
[2018-12-20] MEDS: Metoprolol Tartrate 25 MG Tablet 75 MG PO (22:22)
[2018-12-20 22:29] LABS: Glucose 481 mg/dL (74-106)
[2018-12-21] VITALS (19 sets, daily range): BP systolic 124–142; BP diastolic 57–78; PULSE 59–121; RESP 12–21; TEMP 36.3–36.9; O2SAT 94–100
[2018-12-21 01:06] LABS: Bedside Glucose 460 mg/dL (70-110)
[2018-12-21] MEDS: Insulin Lispro 100 UNIT/ML INSULN.PEN SC ×6 (03:52→21:48)
[2018-12-21] MEDS: 0.9% NaCl Peripheral Flush Adult/Peds IV ×3 (05:39→22:06)
[2018-12-21 05:41] LABS: Bedside Glucose 253 mg/dL (70-110)
[2018-12-21] MEDS: Ipratropium/Albuterol Sulfate 3 ML AMPUL.NEB INHALATION ×3 (06:40→18:40)
[2018-12-21 08:01] LABS: Bedside Glucose 205 mg/dL (70-110)
[2018-12-21] MEDS: predniSONE 20 MG Tablet 40 MG PO (08:01)
[2018-12-21] MEDS: Aspirin 81 MG TAB.CHEW PO (08:01)
--- NOTE | 2018-12-21 08:05 | PCM.PN.INT ---
Subjective: Patient did well overnight. Patient reports subjective improvement in overall condition. Patient did report becoming very stressed overnight and he believes this led to him being hyperglycemic. Patient has been weaned to room air. Patient tolerating BiPAP at night with sleep. General: Alert, Oriented x3, Cooperative, No apparent distress, Well developed, Well nourished, - - Obese. Speaking in full sentences. HEENT: Atraumatic, PERRLA, EOMI, Normocephalic, - - No scleral icterus or injection noted. Oral: Moist Mucosa, No Gingival or Mucosal Lesions/ Ulcerations Neck: Supple, No JVD, No Nodes, Trachea Midline Lungs: No rhonchi, No wheeze, No rales, Diminished Cardiovascular: Regular rate, Regular Rhythm, Normal S1, Normal S2, No murmurs, No rub noted, No Gallop Abdomen: Bowel Sounds Present, Soft, Non Tender, Non-Distended, Obese Extremities: No clubbing, No cyanosis, Edema - Trace Skin: - - No significant change compared to previous Musculoskeletal: No Tenderness to Palpation of Joints or Extremities Lymphatic: No Cervical, Supraclavicular, or Inguinal Adenopathy Neurological: Cranial nerves II-XII grossly intact, Neuro grossly intact, Motor Exam 5/5 strength throughout Psych/Mental Status: Alert and oriented to time, place, person, mood and affect Vital Signs Temp Pulse Resp BP Pulse Ox 36.4 C L 70 16 135/70 H 99 12/21/18 03:38 12/21/18 07:13 12/21/18 06:40 12/21/18 03:38 12/21/18 06:40 Oxygen Flow Rate (L/min) 1 Oxygen Delivery Method Room Air Weight: 107.7 kg Body Mass Index (BMI) 39.4 Finger Stick Blood Glucose 269 Intake and Output for Last 24 Hours 12/19/18 12/20/18 12/21/18 23:59 23:59 23:59 Intake Total 1268.33 / 1268.33 3442.75 / 3442.75 0 / 0 Output Total 4000 / 4000 550 / 550 0 / 0 Balance -2731.67 / -2731.67 2892.75 / 2892.75 0 / 0 Labs (Last 48 Hours) 12/19/18 12/19/18 12/19/18 11:25 13:36 17:03 WBC RBC Hgb Hct MCV MCH MCHC RDW Std Deviation RDW Coeff of Judi Plt Count MPV Immature Gran % (Auto) Neut % (Auto) Lymph % (Auto) [place] % (Auto) Eos % (Auto) Baso % (Auto) Absolute Neuts (auto) Absolute Lymphs (auto) Nucleated RBC % Sodium Potassium Chloride Carbon Dioxide Anion Gap BUN Creatinine Estim Creat Clear Calc Est GFR (MDRD) Af Amer Est GFR (MDRD) Non-Af BUN/Creatinine Ratio Glucose Calcium POC Glucose 404 H 417 H 194 H 12/19/18 12/20/18 12/20/18 22:32 06:13 06:13 WBC 13.3 H RBC 4.13 L Hgb 11.6 L Hct 36.2 L MCV 87.7 MCH 28.1 MCHC 32.0 RDW Std Deviation 43.8 RDW Coeff of Judi 13.8 Plt Count 358 MPV 9.3 Immature Gran % (Auto) 2.000 H Neut % (Auto) 78.7 H Lymph % (Auto) 10.0 L [place] % (Auto) 8.7 Eos % (Auto) 0.5 Baso % (Auto) 0.1 Absolute Neuts (auto) 10.4 H Absolute Lymphs (auto) 1.33 Nucleated RBC % 0 Sodium 142 Potassium 4.1 Chloride 103 Carbon Dioxide 25.0 Anion Gap 14 BUN 70 H Creatinine 4.63 H Estim Creat Clear Calc 15.48 Est GFR (MDRD) Af Amer 16 L Est GFR (MDRD) Non-Af 14 L BUN/Creatinine Ratio 15.1 Glucose 190 H Calcium 7.9 L POC Glucose 272 H 12/20/18 12/20/18 12/20/18 06:25 12:05 18:00 WBC RBC Hgb Hct MCV MCH MCHC RDW Std Deviation RDW Coeff of Judi Plt Count MPV Immature Gran % (Auto) Neut % (Auto) Lymph % (Auto) [place] % (Auto) Eos % (Auto) Baso % (Auto) Absolute Neuts (auto) Absolute Lymphs (auto) Nucleated RBC % Sodium Potassium Chloride Carbon Dioxide Anion Gap BUN Creatinine Estim Creat Clear Calc Est GFR (MDRD) Af Amer Est GFR (MDRD) Non-Af BUN/Creatinine Ratio Glucose Calcium POC Glucose 187 H 294 H 400 H 12/20/18 12/20/18 12/21/18 21:49 22:04 03:51 WBC RBC Hgb Hct MCV MCH MCHC RDW Std Deviation RDW Coeff of Judi Plt Count MPV Immature Gran % (Auto) Neut % (Auto) Lymph % (Auto) [place] % (Auto) Eos % (Auto) Baso % (Auto) Absolute Neuts (auto) Absolute Lymphs (auto) Nucleated RBC % Sodium Potassium Chloride Carbon Dioxide Anion Gap BUN Creatinine Estim Creat Clear Calc Est GFR (MDRD) Af Amer Est GFR (MDRD) Non-Af BUN/Creatinine Ratio Glucose 481 H* Calcium POC Glucose 460 H* 253 H 12/21/18 06:41 WBC RBC Hgb Hct MCV MCH MCHC RDW Std Deviation RDW Coeff of Judi Plt Count MPV Immature Gran % (Auto) Neut % (Auto) Lymph % (Auto) [place] % (Auto) Eos % (Auto) Baso % (Auto) Absolute Neuts (auto) Absolute Lymphs (auto) Nucleated RBC % Sodium Potassium Chloride Carbon Dioxide Anion Gap BUN Creatinine Estim Creat Clear Calc Est GFR (MDRD) Af Amer Est GFR (MDRD) Non-Af BUN/Creatinine Ratio Glucose Calcium POC Glucose 205 H Medical Necessity - Tobacco Use Smoking Status: Former smoker Tobacco Use: Non-smoker Assessment/Plan All Active Problems (Last Reviewed 11/05/18 @ 10:26 by Pili May) Nephrotic range proteinuria (Acute) CHF exacerbation (Acute) Chest pain (Acute) EDGARDO (acute kidney injury) (Acute) Choledocholithiasis with acute cholecystitis (Acute) Abnormal LFTs (Acute) RECOMMENDATIONS: 1. Continue antibiotic's with plans to complete a 7-day treatment course. 2. Will wean to 30 mg of prednisone. Continue to wean steroids over the next 8-12 days 3. May need to adjust basal insulin with weaning of steroid therapy. 4. Recommend continued use of BiPAP therapy with sleep until discharge. 5. Walking oximetry prior to discharge 6. Encourage incentive parameter use and mobilize patient as tolerated. 7. Patient can follow-up with nurse practitioner 2 weeks after discharge from rehab facility for outpatient PSG, PFT and walking oximetry 8. We will dynamically stable on room air. Will sign off from a critical care/pulmonary perspective IMPRESSIONS: 1. Acute hypoxemic respiratory failure Patient appears to be doing well at this time. Patient still requiring minimal nasal cannula oxygen to maintain saturations. Clinical suspicion for a multifactorial etiology of respiratory failure including congestive heart failure, atelectasis and pneumonia. Patient should complete a total of 7 days of antibiotics. Will wean to prednisone 30 mg. Steroids can continue to be weaned over the next 8-12 days. Increase activity as tolerated and incentive spirometer should help with atelectasis. Patient should continue with BiPAP therapy while in the hospital. Patient will need a walking oximetry prior to discharge. Outpatient pulmonary function test and polysomnogram would be indicated. Patient can follow-up with nurse practitioner 2 weeks after discharge from rehab facility to arrange this testing. Otherwise, patient is hemodynamically stable on room air. Will sign off from a critical care/pulmonary perspective. 2. Coronary artery disease/heart failure with preserved ejection fraction/valvular heart disease The patient does not appear to be overtly volume overloaded at this time. Cardiology is currently following. Continue volume optimization via hemodialysis. 3. Acute on chronic kidney disease Suspect prerenal etiology due to use of diuretics, coupled with chronic medical renal disease. Nephrology is following. Hemodialysis per nephrology. 4. Chronic anemia The patient has baseline chronic anemia. In his setting of coronary artery disease, the patient was transfused packed red blood cells. At the current time, there are no signs of overt blood loss. There is no indication for transfusion of additional blood products. 5. Obstructive sleep apnea Resume nocturnal Pap therapy. Given the patient's weight gain over the last year, he may require a re-titration study and subsequent increase in his pressure support. This can be completed on an outpatient basis. 6. Diabetes mellitus/hypertension/hyperlipidemia/anxiety/depression/CODE STATUS Complicates care, management, recovery and prognosis. Step up insulin therapy. CODE STATUS- FULL CODE. Code Visit Inpatient E&M: 25499 Subs Hosp L2
[2018-12-21 08:16] LABS: Bedside Glucose 188 mg/dL (70-110)
[2018-12-21] MEDS: Heparin Injection (Vial) 5,000 UNIT/ML VIAL 5000 UNIT SC ×2 (10:06→21:47)
[2018-12-21] MEDS: Metoprolol Tartrate 25 MG Tablet 75 MG PO ×2 (10:10→21:49)
[2018-12-21] MEDS: Allopurinol 100 MG Tablet PO (10:12)
[2018-12-21 11:17] LABS: Albumin, Serum 2.2 g/dL (3.2-5.0); BUN 94 mg/dL (7-18); Chloride 97 mmol/L (98-107); Creatinine, Serum 5.52 mg/dL (0.70-1.30); EST Glomerular Filtration Rate 11 mL/min (>60); Est Glom Filt Rate - Afr Amer 13 mL/min (>60); Estimated Creatinine Clearance 12.99 ml/min; Glucose 331 mg/dL (74-106); Phosphorus 7.2 mg/dL (2.5-4.9); Potassium 4.1 mmol/L (3.5-5.1); Sodium Level 131 mmol/L (136-145)
[2018-12-21 12:25] LABS: Bedside Glucose 298 mg/dL (70-110)
--- NOTE | 2018-12-21 14:14 | PN_ITS ---
Patient Problems: Active and Suspected Problems (Last Reviewed 11/05/18 @ 10:26 by Pili May) Nephrotic range proteinuria (Acute) Chest pain (Acute) EDGARDO (acute kidney injury) (Acute) Vitals/I&O's: Vital Signs Temp Pulse Resp BP Pulse Ox 97.3 F L 61 16 133/67 H 94 12/21/18 09:20 12/21/18 13:14 12/21/18 13:14 12/21/18 09:20 12/21/18 09:20 Oxygen Flow Rate (L/min) 1 Oxygen Delivery Method Room Air Weight: 107.7 kg Body Mass Index (BMI) 39.4 Finger Stick Blood Glucose 269 Intake and Output for Last 24 Hours 12/19/18 12/20/18 12/21/18 23:59 23:59 23:59 Intake Total 1268.33 / 1268.33 3442.75 / 3442.75 1510 / 1510 Output Total 4000 / 4000 550 / 550 875 / 875 Balance -2731.67 / -2731.67 2892.75 / 2892.75 635 / 635 Laboratory Results 12/20/18 18:00: POC Glucose 400 H 12/20/18 21:49: POC Glucose 460 H* 12/20/18 22:04: Glucose 481 H* 12/21/18 03:51: POC Glucose 253 H 12/21/18 06:41: POC Glucose 205 H 12/21/18 07:56: POC Glucose 188 H 12/21/18 10:13: Sodium 131 L, Potassium 4.1, Chloride 97 L, Carbon Dioxide 22.0, BUN 94 H, Creatinine 5.52 H, Estim Creat Clear Calc 12.99, Est GFR (MDRD) Af Amer 13 L, Est GFR (MDRD) Non-Af 11 L, BUN/Creatinine Ratio 17.0, Glucose 331 H, Calcium 7.0 L, Phosphorus 7.2 H, Albumin 2.2 L 12/21/18 11:55: POC Glucose 298 H Current Medications Acetaminophen (Tylenol) 650 mg PO Q6H PRN PRN Reason: NON CARDIAC PAIN (MOD-SEVERE) Al Hydroxide/Mg Hydroxide (Mylanta Ii) 15 - 30 ml PO Q4H PRN PRN PRN Reason: INDIGESTION Albuterol Sulfate (Ventolin Aerosols) 2.5 mg INHALATION Q2H PRN PRN PRN Reason: dyspnea, wheezing Albuterol/Ipratropium (Duoneb) 3 ml INHALATION Q6HWA.RT [facility] Last Admin: 12/21/18 13:14 Dose: 3 ml Documented by: Allopurinol (Zyloprim) 100 mg PO DAILY [facility] Last Admin: 12/21/18 10:12 Dose: 100 mg Documented by: Aspirin (Aspirin, Baby) 81 mg PO DAILY@0800 [facility] Last Admin: 12/21/18 08:01 Dose: 81 mg Documented by: Dextrose (D50w Syringe) 0 gm IV X1 PRN; Protocol PRN Reason: Hypoglycemia Glucagon () 1 mg IM .X1 PRN PRN Reason: Hypoglycemia Heparin Sodium (Porcine) (Heparin Na) 5,000 unit SC Q12 [facility] Last Admin: 12/21/18 10:06 Dose: 5,000 unit Documented by: Sodium Chloride () 250 mls @ 15 mls/hr IV .[id number] PRN PRN Reason: SALINE FLUSH Last Infusion: 12/20/18 23:30 Dose: Infused Documented by: Pantoprazole Sodium 40 mg/ (Sodium Chloride) 110 mls @ 330 mls/hr IV Q12 [facility] Last Infusion: 12/21/18 10:35 Dose: Infused Documented by: Insulin Glargine (Lantus (Bkc)) 50 units SC BID [facility] Last Admin: 12/21/18 10:07 Dose: 50 u Documented by: Insulin Human Lispro (Humalog Kwikpen (Bk)) 0 unit SC ACHS & 3AM [facility]; Protocol Last Admin: 12/21/18 11:58 Dose: 6 u Documented by: Magnesium Hydroxide (Milk Of Magnesia) 30 ml PO DAILY PRN PRN Reason: Constipation Metoprolol Tartrate (Lopressor (Beta Ayde)) 75 mg PO BID [facility] Last Admin: 12/21/18 10:10 Dose: 75 mg Documented by: Nitroglycerin (Nitrostat) 0.4 mg SUBLINGUAL Q5M PRN PRN Reason: CARDIAC/CHEST PAIN Ondansetron HCl (Zofran) 4 mg IV Q8H PRN PRN PRN Reason: NAUSEA/VOMITING Pharmacy Profile Note () 1 each NOTE X1 PRN PRN Reason: NOT SPECIFIED Polyethylene Glycol (Miralax) 17 gm PO DAILY PRN PRN PRN Reason: CONSTIPATION Prednisone () 30 mg PO DAILYCM [facility] Senna/Docusate Sodium (Senokot-S, Christina-Colace) 2 tablet PO BID [facility] Last Admin: 12/21/18 10:12 Dose: Not Given Documented by: Sodium Chloride () 10 - 40 ml IV UD PRN PRN Reason: SALINE FLUSH Last Admin: 12/21/18 11:10 Dose: 10 ml Documented by: Medical Necessity - Tobacco Use Smoking Status: Former smoker Tobacco Use: Non-smoker Assessment/Plan All Active Problems (Last Reviewed 11/05/18 @ 10:26 by Pili May) Nephrotic range proteinuria (Acute) CHF exacerbation (Acute) Chest pain (Acute) EDGARDO (acute kidney injury) (Acute) Choledocholithiasis with acute cholecystitis (Acute) Abnormal LFTs (Acute) Summary of care/Off service note: Day 12 of hospital stay 68-year-old male with past medical history of CKD stage IV, type II DM, CAD status post CABG, status post stents, hypertension, DASHA who was admitted on 12/10/18 with progressive shortness of breath and chest discomfort. His management has been that of acute decompensated CHF. He was on IV Lasix. Patient got progressively short of breath and was intubated on 12/14/18. He was started on dialysis, received daily dialysis sessions. Last session was 12/20/18. Subsequently was extubated on 12/17/18. Post extubation, patient has improved on nasal cannula oxygen. He had episodes of ICU related delirium was transferred to PCU. Awaiting final recommendations from nephrology concerning possible outpatient dialysis. Patient [facility] be [facility] -[facility] 1. Acute hypoactive delirium/ICU delirium, resolved, will continue non-pharmacologic management and avoid anticholinergics 2. Episode of SVT, s/p adenosine, patient was slightly tachycardic at the end of the day yesterday On increased dose of metoprolol 75mg BID Heart rate is controlled, will continue to monitor on same dose of metoprolol 3. Acute hypoxic respiratory failure secondary to multilobar CAP, secondary to suspected gram-positive organisms, RESOLVED He is on room air, continue prn breathing treatments, encourage use of incentive spirometer 4. Multilobular CAP, secondary to suspected gram-positive organism, completed IV Zosyn. Urine Legionella, streptococcal antigen negative, respiratory panel negative, sputum cultures negative 5. EDGARDO on CKD stage IV, creatinine is 5.52, nephrology following, unclear if patient would need permanent dialysis Repeat labs in a.m. 6.Chronic diastolic CHF, acute CHF ruled out, initially was on Lasix, off Lasix account of worsening renal function, fluid removal at dialysis. 7. Chest pain, known CAD at this post CABG, PCI stable, medical management for now, cardiac cath later on when patient recovers On aspirin, metoprolol 8. Nonrheumatic aortic valve stenosis, moderate-severe, will need to follow-up with cardiology in the outpatient 9.Type 2 diabetes mellitus, blood sugars are better controlled on Lantus 10.Hypertension, controlled, resumed on oral metoprolol 11. Acute on Chronic normocytic anemia secondary to iron deficiency likely secondary to chronic GI loss, Hb is stable at 11.6 Status post 2 unit PRBC. Stool positive for occult blood, on IV PPI, will continue to hold fluoxetine 12. DVT PPx - Heparin SC 13. GI PPx- on PPI Code Visit Inpatient E&M: 29041 Subs Hosp L2
--- NOTE | 2018-12-21 17:11 | PCM.PN.REN ---
Patient Problems: Active and Suspected Problems (Last Reviewed 11/05/18 @ 10:26 by Pili May) Nephrotic range proteinuria (Acute) Chest pain (Acute) EDGARDO (acute kidney injury) (Acute) Subjective: No nausea No vomiting. No SOB making urine. - Physical Exam General: Alert, Oriented x3 HEENT: Atraumatic Oral: Moist Mucosa Neck: Supple, No JVD Lungs: Clear to auscultation, Normal air movement, No rhonchi, No wheeze Cardiovascular: Regular rate, Regular Rhythm, Normal S1, Normal S2 Abdomen: Bowel Sounds Present, Soft, Non Tender Extremities: No clubbing, No cyanosis, No edema Skin: No rashes Musculoskeletal: No Tenderness to Palpation of Joints or Extremities Lymphatic: No Cervical, Supraclavicular, or Inguinal Adenopathy Neurological: Neuro grossly intact Psych/Mental Status: Appropriate Vital Signs Temp Pulse Resp BP Pulse Ox 97.4 F L 60 16 124/57 H 95 12/21/18 15:03 12/21/18 15:08 12/21/18 15:03 12/21/18 15:03 12/21/18 15:03 Oxygen Flow Rate (L/min) 1 Oxygen Delivery Method Room Air Weight: 110.223 kg Body Mass Index (BMI) 39.4 Finger Stick Blood Glucose 269 Intake and Output for Last 24 Hours 12/19/18 12/20/18 12/21/18 23:59 23:59 23:59 Intake Total 1268.33 / 1268.33 3442.75 / 3442.75 1510 / 1510 Output Total 4000 / 4000 550 / 550 875 / 875 Balance -2731.67 / -2731.67 2892.75 / 2892.75 635 / 635 Laboratory Tests Past 24 Hrs 12/20/18 12/21/18 12/21/18 22:04 10:13 16:45 Sodium 131 L Potassium 4.1 Chloride 97 L Carbon Dioxide 22.0 BUN 94 H Creatinine 5.52 H Estim Creat Clear Calc 12.99 Est GFR (MDRD) Af Amer 13 L Est GFR (MDRD) Non-Af 11 L BUN/Creatinine Ratio 17.0 Glucose 481 H* 331 H Pending Calcium 7.0 L Phosphorus 7.2 H Albumin 2.2 L POC Glucose 12/21/18 12/21/18 12/21/18 11:55 07:56 06:41 POC Glucose 298 H 188 H 205 H 12/21/18 12/20/18 12/20/18 03:51 21:49 18:00 POC Glucose 253 H 460 H* 400 H Medical Necessity - Tobacco Use Smoking Status: Former smoker Tobacco Use: Non-smoker Assessment/Plan All Active Problems (Last Reviewed 11/05/18 @ 10:26 by Pili May) Nephrotic range proteinuria (Acute) CHF exacerbation (Acute) Chest pain (Acute) EDGARDO (acute kidney injury) (Acute) Choledocholithiasis with acute cholecystitis (Acute) Abnormal LFTs (Acute) 1- EDGARDO on CKD stage 4. Baseline Cr ~ 2.6-2.7 mg/dL from most probably DNP. Pt has significant proteinuria. Pro/Cr was a 11 mg/mg. EDGARDO is from [facility] related to sepsis. Pt is now HD dependent for metabolic and fluid support. HD initiated on 12/15 Pt is non oliguric. No solute clearance. BUN and Cr continue to increase significantly between HD session Last HD session 12/19. Next HD session tomorrow Will consult surgeon tomorrow to place tunneled cath Keep MAP > 65. Avoid IV contrast Will continue to monitor for kidney function recovery. continue accurate I/O with daily renal function panel 2- Hyperkalemia : Resolved with hemodialysis 3-High anion gap acidosis. from EDGARDO. resolved with HD 4- Hyperphosphatemia: from EDGARDO. Will start Phoslo with meals 5- ARF from pneumonia and ARDS Vs CHF Improved. extubated. On RA Thank you for allowing me to participate in Mr. Gardner's care Renal team will continue to follow Please call if any question at [phone] Carolyn Joyce MD
[2018-12-21 17:19] LABS: Glucose 478 mg/dL (74-106)
--- NOTE | 2018-12-21 18:37 | NURSING ---
Pt walked in the hallways aprox 20 feet using the wheeled walker and standby assist. he tolerated very well.
[2018-12-21] MEDS: 0.9% NaCl IVPB Med Flush (250 mL) 15 ML IV (22:05)
[2018-12-22] VITALS (27 sets, daily range): BP systolic 110–140; BP diastolic 59–75; PULSE 56–66; RESP 12–18; TEMP 36–36.7; O2SAT 94–100; BMI 35.9
[2018-12-22 02:21] LABS: Bedside Glucose 372 mg/dL (70-110)
[2018-12-22] MEDS: Insulin Lispro 100 UNIT/ML INSULN.PEN SC ×5 (03:47→21:14)
[2018-12-22] MEDS: 0.9% NaCl Peripheral Flush Adult/Peds IV ×3 (03:48→21:16)
[2018-12-22 06:01] LABS: Bedside Glucose 302 mg/dL (70-110)
[2018-12-22 06:22] LABS: Albumin, Serum 2.2 g/dL (3.2-5.0); BUN 105 mg/dL (7-18); BUN/Creat Ratio 18.4 RATIO (10-20); Chloride 99 mmol/L (98-107); Creatinine, Serum 5.72 mg/dL (0.70-1.30); EST Glomerular Filtration Rate 11 mL/min (>60); Est Glom Filt Rate - Afr Amer 13 mL/min (>60); Estimated Creatinine Clearance 12.53 ml/min; Glucose 307 mg/dL (74-106); Phosphorus 7.4 mg/dL (2.5-4.9); Potassium 3.8 mmol/L (3.5-5.1); Sodium Level 136 mmol/L (136-145)
[2018-12-22] MEDS: Ipratropium/Albuterol Sulfate 3 ML AMPUL.NEB INHALATION ×3 (06:50→18:51)
[2018-12-22 07:26] LABS: Bedside Glucose 292 mg/dL (70-110)
--- NOTE | 2018-12-22 09:16 | CASEMGMT ---
Per Dr Joyce' note from 12/21/18, pt will be on HD and will need tunnel cath placement. This RN CM to room to discuss dialysis at this time. Pt is agreeable at this time but would like this RN CM to call with list of dialysis facilities at this time. This RN CM was able to reach and after verbal list provided, states she would like [facility]. also stated that they would like pt to go to [facility] discharge for rehab and pt stated the same. Regina SW aware at this time, voices understanding. Referral faxed to [facility] at this time and placed in [facility] portal. Jaylan RN CM
[2018-12-22] MEDS: Calcium Acetate 667 MG Capsule 1334 MG PO ×2 (10:05→18:06)
[2018-12-22] MEDS: Heparin Injection (Vial) 5,000 UNIT/ML VIAL 5000 UNIT SC (10:26)
--- NOTE | 2018-12-22 10:39 | CASEMGMT ---
Addendum entered by Ludivina Burch 12/22/18 12:24: Return call from [facility] and the are able to accept pt. Phone call to pt Diana and informed. Plan: [facility], when dialysis is set up and pt medically ready. SANDY Tomas Original Note: Social Work Per RN GAURI Fong pt requesting referral be made to [facility]. Phone call to Sara at [facility] and referral made. Clinical information faxed. Will await determination of acceptance from [facility]. JILL spoke with Caridad in TCU and informed pt will not be coming to TCU. SANDY Tomas
[2018-12-22] MEDS: Metoprolol Tartrate 25 MG Tablet 75 MG PO ×2 (11:17→21:15)
--- NOTE | 2018-12-22 12:01 | CASEMGMT ---
Call from Tenzin at [facility] and he states he will be admissions contact for pt at this time. According to the [facility] Portal, fax with referral was received at [phone] 12/22/18. This RN CM received call from Dr. Rodrigez and he states that pt will have tunnel cath placed by Dr. Brooks 12/23/18 in the am and he wanted to make sure referral was sent for OP HD. This RN CM confirmed to him that referral was sent to [facility] this am, voices understanding. Jaylan STRICKLAND CM
--- NOTE | 2018-12-22 12:11 | PN_ITS ---
Patient Problems: Active and Suspected Problems (Last Reviewed 11/05/18 @ 10:26 by Pili May) Nephrotic range proteinuria (Acute) Chest pain (Acute) EDGARDO (acute kidney injury) (Acute) Subjective: Patient seen and examined. He has no complaints and feels very well. Review of systems otherwise negative. Labs and vitals reviewed. She due for dialysis today. Vitals/I&O's: Vital Signs Temp Pulse Resp BP Pulse Ox 97.8 F 64 16 132/70 H 95 12/22/18 10:15 12/22/18 11:17 12/22/18 10:15 12/22/18 10:15 12/22/18 10:15 Oxygen Flow Rate (L/min) 1 Oxygen Delivery Method Room Air Weight: 243 lb 0.002 oz Body Mass Index (BMI) 39.4 Finger Stick Blood Glucose 269 Intake and Output for Last 24 Hours 12/20/18 12/21/18 12/22/18 23:59 23:59 23:59 Intake Total 3442.75 / 3442.75 3251.50 / 3251.50 118.5 / 118.5 Output Total 550 / 550 1974 / 1974 725 / 725 Balance 2892.75 / 2892.75 1276.50 / 1276.50 -606.5 / -606.5 General: Alert, Oriented x3, Cooperative, No apparent distress HEENT: Atraumatic, PERRLA, EOMI, Normocephalic Oral: Moist Mucosa Neck: Supple, No JVD, Negative Carotid Bruits Lungs: Clear to auscultation, Normal air movement, No rhonchi, No wheeze Cardiovascular: Regular rate, Regular Rhythm, Normal S1, Normal S2, No murmurs Abdomen: Bowel Sounds Present, Soft, Non Tender, Non-Distended, No Hepato- splenomegaly Extremities: No clubbing, No cyanosis, No edema, Capillary Refill Less than 3 Seconds Skin: No rashes, No breakdown Musculoskeletal: - - dialysis catheter in place in right side of neck Lymphatic: No Cervical, Supraclavicular, or Inguinal Adenopathy Neurological: Cranial nerves II-XII grossly intact, Neuro grossly intact, Motor Exam 5/5 strength throughout Psych/Mental Status: Normal Affect, Appropriate, Alert and oriented to time, place, person, mood and affect Laboratory Results 12/21/18 11:55: POC Glucose 298 H 12/21/18 16:45: Glucose 478 H* 12/21/18 21:45: POC Glucose 372 H 12/22/18 03:45: POC Glucose 302 H 12/22/18 05:25: Sodium 136, Potassium 3.8, Chloride 99, Carbon Dioxide 22.0, BUN 105 H*, Creatinine 5.72 H, Estim Creat Clear Calc 12.53, Est GFR (MDRD) Af Amer 13 L, Est GFR (MDRD) Non-Af 11 L, BUN/Creatinine Ratio 18.4, Glucose 307 H, Calcium 7.0 L, Phosphorus 7.4 H, Albumin 2.2 L 12/22/18 07:00: POC Glucose 292 H Diagnostic Data Renal Ultrasound 12/11/18 13:27 IMPRESSION: Bilateral renal cysts. Electronically Signed: Marek Sanchez DO at 21:57 EDT Tel [phone], Service support , Chest CT 12/14/18 07:36 IMPRESSION: Status post sternotomy mild cardiomegaly coronary artery disease. There is a perihilar pattern of groundglass opacities now some with consolidation with bilateral effusions. Findings are suspicious for pulmonary edema which may be cardiogenic. The differential includes diffuse pneumonia potentially hemorrhage in the appropriate clinical setting. There is reactive appearing lymphadenopathy and several reactive or potentially pathologic right paratracheal lymph nodes. Hepatosplenomegaly. The spleen measures 16 x 10 x 12.4 cm. Electronically Signed: Latia Alejandra MD at 9:20 EDT Tel , Service support , KUB X-Ray 12/14/18 19:41 IMPRESSION: Limited study due to patient's body habitus and motion Non-obstructive bowel gas pattern. NG tube with the tip in the stomach at 2055 Reported and signed by: Latia Mathews DO Electronically Signed: Latia Mathews DO at 20:54 EDT Tel , Service support , Chest X-Ray 12/18/18 05:00 IMPRESSION: Interval improvement of the bilateral airspace disease. Residual changes persist. The endotracheal tube as well as a nasogastric tube have been removed. Electronically Signed: Keagan Long, at 9:32 EDT , Service support , Current Medications Acetaminophen (Tylenol) 650 mg PO Q6H PRN PRN Reason: NON CARDIAC PAIN (MOD-SEVERE) Al Hydroxide/Mg Hydroxide (Mylanta Ii) 15 - 30 ml PO Q4H PRN PRN PRN Reason: INDIGESTION Albuterol Sulfate (Ventolin Aerosols) 2.5 mg INHALATION Q2H PRN PRN PRN Reason: dyspnea, wheezing Albuterol/Ipratropium (Duoneb) 3 ml INHALATION Q6HWA.RT HAYES Last Admin: 12/22/18 06:50 Dose: 3 ml Documented by: Allopurinol (Zyloprim) 100 mg PO DAILY HAYES Last Admin: 12/22/18 11:17 Dose: Not Given Documented by: Aspirin (Aspirin, Baby) 81 mg PO DAILY@0800 [facility] Last Admin: 12/22/18 11:18 Dose: Not Given Documented by: Calcium Acetate (Phoslo Gel Cap) 1,334 mg PO TIDCM [facility] Last Admin: 12/22/18 11:18 Dose: Not Given Documented by: Dextrose (D50w Syringe) 0 gm IV X1 PRN; Protocol PRN Reason: Hypoglycemia Glucagon () 1 mg IM .X1 PRN PRN Reason: Hypoglycemia Heparin Sodium (Porcine) (Heparin Na) 5,000 unit SC Q12 [facility]AYES Last Admin: 12/22/18 10:26 Dose: 5,000 unit Documented by: Sodium Chloride () 250 mls @ 15 mls/hr IV .[id number] PRN PRN Reason: SALINE FLUSH Last Infusion: 12/22/18 11:20 Dose: 0 mls/hr Documented by: Pantoprazole Sodium 40 mg/ (Sodium Chloride) 110 mls @ 330 mls/hr IV Q12 HAYES Last Infusion: 12/22/18 10:46 Dose: Infused Documented by: Insulin Glargine (Lantus (Bk)) 50 units SC BID [facility] Last Admin: 12/22/18 10:26 Dose: 50 u Documented by: Insulin Human Lispro (Humalog Kwikpen ([facility])) 0 unit SC ACHS & 3AM HAYES; Protocol Last Admin: 12/22/18 07:02 Dose: 6 u Documented by: Magnesium Hydroxide (Milk Of Magnesia) 30 ml PO DAILY PRN PRN Reason: Constipation Metoprolol Tartrate (Lopressor (Beta Ayde)) 75 mg PO BID [facility] Last Admin: 12/22/18 11:17 Dose: 75 mg Documented by: Nitroglycerin (Nitrostat) 0.4 mg SUBLINGUAL Q5M PRN PRN Reason: CARDIAC/CHEST PAIN Ondansetron HCl (Zofran) 4 mg IV Q8H PRN PRN PRN Reason: NAUSEA/VOMITING Pharmacy Profile Note () 1 each NOTE X1 PRN PRN Reason: NOT SPECIFIED Polyethylene Glycol (Miralax) 17 gm PO DAILY PRN PRN PRN Reason: CONSTIPATION [facility]one () [facility] Last Admin: 12/22/18 11:18 Dose: Not Given Documented by: Senna/Docusate Sodium (Senokot-S, Christina-Colace) 2 tablet PO BID [facility] Last Admin: 12/22/18 11:17 Dose: Not Given Documented by: Sodium Chloride () 10 - 40 ml IV UD PRN PRN Reason: SALINE FLUSH Last Admin: 12/22/18 10:36 Dose: 10 ml Documented by: Medical Necessity - Tobacco Use Smoking Status: Former smoker Tobacco Use: Non-smoker Assessment/Plan All Active Problems (Last Reviewed 11/05/18 @ 10:26 by Pili May) Nephrotic range proteinuria (Acute) CHF exacerbation (Acute) Chest pain (Acute) EDGARDO (acute kidney injury) (Acute) Choledocholithiasis with acute cholecystitis (Acute) Abnormal LFTs (Acute) 1. 1. EDGARDO on CKD stage 4 * baseline CR is ~ 2.6-2.7 * now requiring dialysis. per nephrology, it is probably due to diabetic nephropathy * Cr today-5.72 * per nephrology, will need placement of tunneled catheter- to be done tomorrow by Dr Brooks * now having hyperphosphatemia, so started on Phoslo, per nephrology * 2. Chronic diastolic heart failure: stable. Lasix stopped o/a of worsening renal function 3. Episodic SVT: resolved with administration of adenosine. On metoprolol 4. Community acquired pneumonia: resolved. Completed course of IV zosyn 5. CAD status post CABG and PCI: * Had chest pain during this admission. * Continue medical management for now. to have cardiac cath when kidney function recovers. * On aspirin and metoprolol. 6. Hypertension: on metoprolol. Controlled 7. Acute on chronic anemia: s/o 2 units of pRBCS. stable. 8. Aortic valve stenosis: moderate to severe. To follow up with cardiology upon discharge. 9. Type 2 diabetes mellitus: blood sugars are fluctuating, and poorly controlled. sugars have been in high 400s. on lantus 50IU. ISS. Accuchecks ACHS DVT prophylaxis: heparin GI prophylaxis: PPI Code Visit Inpatient E&M: 88577 Subs Hosp L2
--- NOTE | 2018-12-22 12:18 | CON.PCM_ITS ---
Problem List (1) Chronic renal disease, stage 5, glomerular filtration rate (GFR) less than or equal to 15 mL/min/1.73 square meter Status: Chronic Reason for Consult Date of Consultation: 12/22/18 Reason for Consultation: Acute on chronic renal disease. History of Present Illness: The patient is a 68 year old M who presented to the ED with worsening shortness of breath. Patient has a history of stage 4 chronic renal failure. He has been followed as an outpatient with Dr. Rodrigez. Patient also has a cardiac history. He has had multiple myocardial infarctions, Multiple stents placed in 2010 and CABG x 3 in 2012 at [facility] 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 Patient has never been on dialysis previously. He is maintained on a daily aspirin as an outpatient. Patient has a long standing history of diabetes. Patient had a right temporary IJ catheter placed on 12/15/18. Patient has been receiving dialysis M,W,F. Past Medical History Past Medical History (Chronic Problems): Chronic Problems (Last Reviewed 12/22/18 @ 12:42 by Mary Jo Jaramillo PA-C) Chronic renal disease, stage 5, glomerular filtration rate (GFR) less than or equal to 15 mL/min/1.73 square meter (Chronic) CKD (chronic kidney disease), stage III (Chronic) Pure hypercholesterolemia (Chronic) Type 2 diabetes mellitus (Chronic) Presence of stent in coronary artery (Chronic ~08/25/14) 07/18/10, PTCA/stent to mid to distal LCx artery; 08/17/10 PTCA/stent to proximal to mid RCA; PTCA of distal RCA with DEX September 2010; PTCA with EULALIO to mid distal AV groove left CFX 08/13 Essential hypertension (Chronic) Nonrheumatic aortic (valve) stenosis (Chronic) Nonspecific abnormal unspecified cardiovascular function study (Chronic) Diastolic dysfunction (Chronic) Other prison (current) drug therapy (Chronic) Nicotine abuse (Chronic) Atherosclerotic heart disease of [place] coronary artery without angina pectoris (Chronic) S/P multivessel PTCA/stent and subsequent CABG with SVG to LCx, RCA and diagonal branch with subsequent SVG graft closure to the LCx and diagonal branch; S/P CABG x 3 (Chronic ~07/21/12) CABG-SVG to diagonal, SVG to obtuse marginal & SVG to PDA 07/12; GERD (gastroesophageal reflux disease) (Chronic) Anxiety (Chronic) Medical History: Medical History (Last Reviewed 12/22/18 @ 12:42 by Mary Jo Jaramillo PA-C) Pure hypercholesterolemia (Chronic) E78.00 Type 2 diabetes mellitus (Chronic) E11.9 Presence of stent in coronary artery (Chronic) Onset Date: ~08/25/14 Z95.5 07/18/10, PTCA/stent to mid to distal LCx artery; 08/17/10 PTCA/stent to proximal to mid RCA; PTCA of distal RCA with DEX September 2010; PTCA with EULALIO to mid distal AV groove left CFX 08/13 Essential hypertension (Chronic) I10 Nonrheumatic aortic (valve) stenosis (Chronic) I35.0 Diastolic dysfunction (Chronic) I51.9 Atherosclerotic heart disease of [place] coronary artery without angina pectoris (Chronic) I25.10 S/P multivessel PTCA/stent and subsequent CABG with SVG to LCx, RCA and diagonal branch with subsequent SVG graft closure to the LCx and diagonal branch; Fatigue R53.83 Precordial chest pain R07.2 Shortness of breath R06.02 Sleep apnea G47.30 COPD (chronic obstructive pulmonary disease) J44.9 Diverticulitis K57.92 Aortic valve disease (Inactive) I35.9 Coronary atherosclerosis of [place] coronary artery (Inactive) I25.10 Diabetes mellitus (Inactive) E11.9 HTN (hypertension) (Inactive) I10 Allergies carvedilol [From Coreg] Allergy (Severe, Verified 12/10/18 19:58) vomiting sertraline HCl [From Zoloft] Allergy (Verified 12/10/18 19:58) Unknown isosorbide [From Imdur] Adverse Reaction (Severe, Verified 12/10/18 19:58) Unknown valsartan [From Diovan] Adverse Reaction (Severe, Verified 12/10/18 19:58) Possible angioedema, throat swelling bupropion HCl [From Wellbutrin] Adverse Reaction (Verified 12/10/18 19:58) gets mean citalopram Adverse Reaction (Verified 12/10/18 19:58) Other gabapentin Adverse Reaction (Verified 12/10/18 19:58) Other Home Medications: Ambulatory Orders Medication Instructions Recorded Aspirin [Ecotrin] 81 mg PO DAILY 10/27/13 Nitroglycerin (INPATIENT USE) 0.4 mg SUBLINGUAL Q5M PRN 10/27/13 [Nitrostat] Ammonium Lactate [Amlactin] 1 applic TP PRN PRN 06/20/17 allopurinol 100 mg tablet 100 mg PO QDAY 06/24/17 insulin glargine (U-100) 100 36 unit SC TID ml 06/25/17 unit/mL subcutaneous solution coenzyme Q10 400 mg capsule 400 mg PO BID #90 cap 09/13/17 berberine-herbal comb no.18 capsule 1 cap PO BID cap 02/24/18 fenofibrate nanocrystallized 160 160 mg PO DAILY #30 tab 02/24/18 mg tablet fluoxetine 10 mg tablet 40 mg PO DAILY 05/28/18 metoprolol tartrate 25 mg tablet 50 mg PO BID #120 tab 07/10/18 furosemide 20 mg tablet 20 mg PO BID #60 tab 08/11/18 furosemide 40 mg tablet 40 mg PO BID #60 tab 08/11/18 Amlodipine [Norvasc] 10 mg PO BID 12/11/18 Insulin Glargine,Hum.rec.anlog 40 unit SQ BID 12/11/18 [Lantus] traZODone [Desyrel] 50 mg PO QHS PRN 12/11/18 Surgical History: Surgical History (Last Reviewed 12/22/18 @ 12:42 by Mary Jo Jaramillo PA-C) S/P CABG x 3 (Chronic) Onset Date: ~07/21/12 Z95.1 CABG-SVG to diagonal, SVG to obtuse marginal & SVG to PDA 07/12; Presence of coronary angioplasty implant and graft Z95.5 07/18/10, PTCA/stent to mid to distal LCx artery; 08/17/10 PTCA/stent to proximal to mid RCA; PTCA of distal RCA with DEX September 2010; PTCA with EULALIO to mid distal AV groove left CFX 08/13 History of bilateral knee replacement Z96.653 History of carpal tunnel repair Z98.890 History of cholecystectomy Z90.49 History of partial colectomy Z90.49 History of repair of rotator cuff Z98.890 S/P PTCA (percutaneous transluminal coronary angioplasty) (Inactive) Z98.61 07/18/10, PTCA/stent to mid to distal LCx artery; 08/17/10 PTCA/stent to proximal to mid RCA; PTCA of distal RCA with DEX September 2010; PTCA with EULALIO to mid distal AV groove left CFX 08/13 Surgical History: angioplasty, arthroscopy, knee, coronary bypass surgery, - - Patient status post CABG x3, serial PCI, bilateral total knee replacement, rotator cuff repair, partial colectomy, cholecystectomy, carpal tunnel surgery. Psychiatric History: No pertinent psych hx Lives: Spouse/ Significant Other Smoking Status: Former smoker Tobacco Use: Non-smoker Alcohol: None Drugs: None - *Family History Maternal Family History: Family History (Last Reviewed 12/22/18 @ 12:42 by Mary Jo Jaramillo PA-C) Father CAD (coronary artery disease) Afib Aortic valve replaced Mother Cancer Son Lupus History Items: Cancer Paternal Family History: Family History (Last Reviewed 12/22/18 @ 12:42 by Mary Jo Jaramillo PA-C) Father CAD (coronary artery disease) Afib Aortic valve replaced Mother Cancer Son Lupus History Items: High Cholesterol, Heart Disease - Atrial fibrillation; valvular heart disease status post aVR; , Hypertension Review of Systems Constitutional: Reports: Weight Change, Fatigue HEENT: Denies: Head Aches, Sinus Congestion, Sinus Drainage Cardiovascular: Denies: Chest Pain, Palpitations Respiratory: Reports: Shortness of Breath. Denies: Cough, Sputum production Gastrointestinal: Denies: Abdominal Pain, Nausea, Vomiting Genitourinary: Reports: Hesitancy Musculoskeletal: Denies: Joint Pain, Joint Tenderness Skin: Reports: Dryness Neurological: Denies: Numbness, Tingling, Focal weakness Psychiatric: Denies: Anxiety, Depression, Homicidal Ideations, Suicidal Ideations Hematologic/ Lymphatic: Reports: Anemia, Easy Bruising, Easy Bleeding Patient Problems: Active and Suspected Problems (Last Reviewed 12/22/18 @ 12:42 by Mary Jo Jaramillo PA-C) Nephrotic range proteinuria (Acute) Chest pain (Acute) EDGARDO (acute kidney injury) (Acute) - Physical Exam General: Alert, Oriented x3, Cooperative HEENT: Atraumatic, PERRLA, EOMI, Normocephalic Neck: Supple, No JVD, Negative Carotid Bruits Lungs: Clear to auscultation, Normal air movement Cardiovascular: Regular rate, Murmur Abdomen: Bowel Sounds Present, Soft, Obese Extremities: Edema - bilateral 2+ Skin: No rashes, No breakdown Musculoskeletal: No Tenderness to Palpation of Joints or Extremities Neurological: Neuro grossly intact Psych/Mental Status: Normal Affect, Appropriate Vital Signs Temp Pulse Resp BP Pulse Ox 97.8 F 64 16 132/70 H 95 12/22/18 10:15 12/22/18 11:17 12/22/18 10:15 12/22/18 10:15 12/22/18 10:15 Oxygen Flow Rate (L/min) 1 Oxygen Delivery Method Room Air Weight: 243 lb 0.002 oz Body Mass Index (BMI) 39.4 Finger Stick Blood Glucose 269 Intake and Output for Last 24 Hours 12/20/18 12/21/18 12/22/18 23:59 23:59 23:59 Intake Total 3442.75 / 3442.75 3251.50 / 3251.50 118.5 / 118.5 Output Total 550 / 550 1974 725 / 725 Balance 2892.75 / 2892.75 1276.50 / 1276.50 -606.5 / -606.5 Laboratory Tests Past 24 Hrs 12/21/18 12/22/18 16:45 05:25 Sodium 136 Potassium 3.8 Chloride 99 Carbon Dioxide 22.0 BUN 105 H* Creatinine 5.72 H Estim Creat Clear Calc 12.53 Est GFR (MDRD) Af Amer 13 L Est GFR (MDRD) Non-Af 11 L BUN/Creatinine Ratio 18.4 Glucose 478 H* 307 H Calcium 7.0 L Phosphorus 7.4 H Albumin 2.2 L POC Glucose 12/22/18 12/22/18 12/21/18 07:00 03:45 21:45 POC Glucose 292 H 302 H 372 H 12/21/18 11:55 POC Glucose 298 H Assessment/Plan All Active Problems (Last Reviewed 12/22/18 @ 12:42 by Mary Jo Jaramillo PA-C) Nephrotic range proteinuria (Acute) CHF exacerbation (Acute) Chest pain (Acute) EDGARDO (acute kidney injury) (Acute) Choledocholithiasis with acute cholecystitis (Acute) Abnormal LFTs (Acute) I have been consulted in conjunction with Dr. Brooks. Impression: Acute on chronic renal failure. In need of tunneled dialysis catheter placement Plan: I have discussed this patient with Dr. Brooks. Dr. Brooks will plan to perform a right possible left chest tunneled dialysis catheter placement. Procedure details, risks and benefits have been explained. Patient will have a follow-up CXR post-procedural. It was discussed with patient's nurse that if dialysis can accommodate, he can have the treatment prior to the tunneled dialysis procedure and then catheter will need to be removed. If dialysis treatment can not be completed prior to the scheduled procedure, the dialysis catheter will need to be removed prior to the scheduled procedure. Tunneled dialysis placement is scheduled for 4:30 pm today. Patient has had the opportunity to ask and have questions answered. Patient verbally understands and agrees with the proposed plan. Patient will need vein mapping and follow-up as an outpatient for discussion of potential need for a fistula. Thank you for allowing us to participate in this patient's care. Code Visit Office Visits / Consults: [id number] IP Consult L3
[2018-12-22 15:02] LABS: Absolute Lymphocyte Count 1.49 X10^3/uL (0.83-4.51); Basophil# 0.03 X10^3/uL; Basophil% 0.2 % (0-1); Eosinophil# 0.27 X10^3/uL; Eosinophils% 1.9 % (0-5); Hematocrit 34.3 % (40-54); Hemoglobin 11.3 g/dL (13.0-16.5); Lymphocyte # 1.49 X10^3/ul (4.0); Lymphocyte % 10.6 % (19-41); Mean Corp Hgb Conc 32.9 g/dL (32-36); Mean Corpuscular Hgb 28.2 pg (27.0-32.0); Mean Corpuscular Volume 85.5 fL (80-94); Mean Platelet Vol. 9.2 fl (6.2-12.0); Monocyte# 0.74 X10^3/uL; Monocyte% 5.3 % (0-10); NRBC Flagged by Analyzer 0 % (0-5); Neutrophil # 10.95 X10^3/uL (2.7-7.7); Neutrophil % 78.1 % (47-70); Platelet Count 261 K/mm3 (150-450); RBC Distribution Width CV 13.2 % (11.6-14.6); RBC Distribution Width SD 41.1 fl (35.1-43.9); Red Blood Count 4.01 M/mm3 (4.6-6.2)
[2018-12-22 15:06] LABS: Bedside Glucose 218 mg/dL (70-110)
[2018-12-22 15:08] LABS: International Normalized Ratio 1.1; Prothrombin Time (Protime)PT. 13.7 SECONDS (11.7-14.9)
[2018-12-22 15:09] LABS: Partial Thromboplast Time 26.8 Seconds (24.1-36.2)
--- NOTE | 2018-12-22 15:13 | PN.RENAL_ITS ---
Patient Problems: Active and Suspected Problems (Last Reviewed 12/22/18 @ 12:42 by Mary Jo Jaramillo PA-C) Nephrotic range proteinuria (Acute) Chest pain (Acute) EDGARDO (acute kidney injury) (Acute) Subjective: no new complaints - Physical Exam General: Alert, Oriented x3, Cooperative HEENT: Atraumatic, PERRLA, EOMI, Normocephalic Neck: Supple, No JVD, Negative Carotid Bruits Lungs: Clear to auscultation, Normal air movement Cardiovascular: Regular rate, No murmurs Abdomen: Bowel Sounds Present, Soft, Non Tender Extremities: No edema, Capillary Refill Less than 3 Seconds Skin: No rashes, No breakdown Musculoskeletal: No Tenderness to Palpation of Joints or Extremities Neurological: Cranial nerves II-XII grossly intact Psych/Mental Status: Normal Affect, Appropriate Vital Signs Temp Pulse Resp BP Pulse Ox 97.8 F 56 L 16 132/70 H 95 12/22/18 10:15 12/22/18 13:09 12/22/18 13:09 12/22/18 10:15 12/22/18 10:15 Oxygen Flow Rate (L/min) 1 Oxygen Delivery Method Room Air Weight: 110.223 kg Body Mass Index (BMI) 39.4 Finger Stick Blood Glucose 269 Intake and Output for Last 24 Hours 12/20/18 12/21/18 12/22/18 23:59 23:59 23:59 Intake Total 3442.75 / 3442.75 3251.50 / 3251.50 118.5 / 118.5 Output Total 550 / 550 1974 / 1974 725 / 725 Balance 2892.75 / 2892.75 1276.50 / 1276.50 -606.5 / -606.5 Laboratory Tests Past 24 Hrs 12/21/18 12/22/18 12/22/18 16:45 05:25 14:50 WBC 14.0 H RBC 4.01 L Hgb 11.3 L Hct 34.3 L MCV 85.5 MCH 28.2 MCHC 32.9 RDW Std Deviation 41.1 RDW Coeff of Judi 13.2 Plt Count 261 MPV 9.2 Immature Gran % (Auto) 3.900 H Neut % (Auto) 78.1 H Lymph % (Auto) 10.6 L [place] % (Auto) 5.3 Eos % (Auto) 1.9 Baso % (Auto) 0.2 Absolute Neuts (auto) 11.0 H Absolute Lymphs (auto) 1.49 Nucleated RBC % 0 PT INR APTT Sodium 136 Potassium 3.8 Chloride 99 Carbon Dioxide 22.0 BUN 105 H* Creatinine 5.72 H Estim Creat Clear Calc 12.53 Est GFR (MDRD) Af Amer 13 L Est GFR (MDRD) Non-Af 11 L BUN/Creatinine Ratio 18.4 Glucose 478 H* 307 H Calcium 7.0 L Phosphorus 7.4 H Albumin 2.2 L 12/22/18 14:50 WBC RBC Hgb Hct MCV MCH MCHC RDW Std Deviation RDW Coeff of Judi Plt Count MPV Immature Gran % (Auto) Neut % (Auto) Lymph % (Auto) [place] % (Auto) Eos % (Auto) Baso % (Auto) Absolute Neuts (auto) Absolute Lymphs (auto) Nucleated RBC % PT 13.7 INR 1.1 APTT 26.8 Sodium Potassium Chloride Carbon Dioxide BUN Creatinine Estim Creat Clear Calc Est GFR (MDRD) Af Amer Est GFR (MDRD) Non-Af BUN/Creatinine Ratio Glucose Calcium Phosphorus Albumin POC Glucose 12/22/18 12/22/18 12/22/18 12:40 07:00 03:45 POC Glucose 218 H 292 H 302 H 12/21/18 21:45 POC Glucose 372 H Medical Necessity - Tobacco Use Smoking Status: Former smoker Tobacco Use: Non-smoker Assessment/Plan All Active Problems (Last Reviewed 12/22/18 @ 12:42 by Mary Jo Jaramillo PA-C) Nephrotic range proteinuria (Acute) CHF exacerbation (Acute) Chest pain (Acute) EDGARDO (acute kidney injury) (Acute) Choledocholithiasis with acute cholecystitis (Acute) Abnormal LFTs (Acute) 1- EDGARDO on CKD stage 4. Baseline Cr ~ 2.6-2.7 mg/dL from most probably DNP. Pt has significant proteinuria. Pro/Cr was a 11 mg/mg. EDGARDO is from ATN related to sepsis. Pt is now HD dependent for metabolic and fluid support. HD initiated on 12/15 Pt is non oliguric. No solute clearance. BUN and Cr continue to increase significantly between HD session seen on HD today will likely need dialysis for near term spoke to Dr Brooks. line to be converted to tunneled later today or tomorrow paperwork has been sent to dialysis unit for placement likely can dc tomorrow if he has a confirmed spot 2- Hyperkalemia : Resolved with hemodialysis 3-High anion gap acidosis. from EDGARDO. resolved with HD 4- Hyperphosphatemia: from EDGARDO. on Phoslo with meals 5- ARF from pneumonia and ARDS Vs CHF Improved. extubated. On RA
--- NOTE | 2018-12-22 15:55 | DIALYSIS ---
Hemodialysis x 2 hours with 3K bath; tolerated well. Removed = -1000; RIJ Temporary CVC capped & locked. Flushed with NS. DCED without complications. Stasis complete after 10min of handheld pressure. Pressure dressing applied. Report given to MARCO A Bain.
--- NOTE | 2018-12-22 15:59 | NURSING ---
report called to Chantal in [facility]. pt transported down via bed.
[2018-12-22 16:26] LABS: Bedside Glucose 196 mg/dL (70-110)
[2018-12-22] MEDS: Cefazolin 2 GM in 0.9% Normal Saline 100 ML IV (16:33)
[2018-12-22] MEDS: Bupivacaine Mpf 0.5% 30 ML VIAL (16:45)
[2018-12-22] MEDS: Heparin 10,000 UNITS/10 ML Vial 10000 UNITS (17:06)
--- NOTE | 2018-12-22 17:16 | PCM.OPRPT ---
Problem List (1) Chronic renal disease, stage 5, glomerular filtration rate (GFR) less than or equal to 15 mL/min/1.73 square meter Status: Chronic Report of Operation Date of Procedure: 12/22/18 Pre-Operative Diagnosis: Stage V chronic renal insufficiency Post-Operative Diagnosis: Same Surgery/Procedure Performed:: Left internal jugular 23 cm pre-curved palindrome double-lumen dialysis catheter placement. Reference #[id number]. Lot #[id number] Description of Surgical Findings:: Timeout and informed consent was obtained. 68-year-old gentleman was taken the operating placement table. The left neck and chest were sterilely prepped and draped. 2 g of Ancef were given intravenously. The patient underwent monitored anesthesia care local anesthetic. 1% lidocaine mixed 50-50 with 0.5% Marcaine was used as a local anesthetic. Total 10 cc was used. Under ultrasound guidance the left internal jugular vein was identified local was instilled micropuncture needle inserted micropuncture wire inserted fluoroscopy demonstrated good position. Local was instilled down upon the chest wall. The 23 cm pre-curved palindrome catheter was tunneled from the chest to the neck. Then micropuncture sheath was inserted and exchanged out for an 035 J-wire. Serial dilatation was performed. Sheath dilator was inserted. The wire and dilator were removed. The catheter was advanced to the sheath. The sheath was split the catheter was positioned. It aspirated very easily. Fluoroscopy demonstrated good positioning. The catheter was flushed with saline and then 2.5 cc of heparinized saline per lumen. The catheter was secured to skin with interrupted 3-0 nylon. The neck incision was closed with interrupted 5-0 Vicryl subdermal stitch. Steri-Strips applied to the neck. Silver impregnated dressing Telfa and OpSite dressing was applied to the exit site. Sponge and instrument and needle counts were reported the surgeon be correct. Blood loss minimal. He tolerated the procedure well was taken to the recovery room in satisfactory condition without apparent complication. Stat portable chest x-ray is pending. Specimens none. Drains none. Blood loss minimal. Damian Brooks M.D., F.A.C.S. Type of Anesthesia:: Local MAC Anesthesiologist: Griffin De La Torre
--- NOTE | 2018-12-22 17:25 | RAD_ITS ---
STUDY: X-RAY CHEST REASON FOR EXAM: Male, 68 years old. Post hemodialysis catheter placement TECHNIQUE: AP portable COMPARISON: None. FINDINGS: Less than optimal inspiratory effort is seen.. There is no demonstrated pleural abnormality. Heart is enlarged. Dialysis catheter noted on the left with tip in distal superior vena cava. Normal mediastinum and ursula. Normal visualized pulmonary arteries. Normal visualized aortic arch and descending thoracic aorta. Postop changes status post median sternotomy and CABG. Normal visualized thoracic spine. Normal visualized ribs, clavicles, and shoulders. There is no demonstrated abnormality of the visualized soft tissue structures of the upper abdomen. RAD/CXR for Line Placement IMPRESSION: Dialysis catheter noted on the left with tip in distal superior vena cava. No evidence for pneumothorax status post catheter placement Electronically Signed: Yeison Ross MD at 19:17 EDT , Service support ,
[2018-12-22 17:35] LABS: Bedside Glucose 160 mg/dL (70-110)
--- NOTE | 2018-12-22 17:36 | SUR.PHASEI ---
BLOOD GLUCOSE 160
--- NOTE | 2018-12-22 20:36 | NURSING ---
Patient received a dinner tray, food from [employer], a tv dinner from the floor and brought patient in [facility]. Patient asked for additional food and this RN explained to the patient the importance of eating slowing. This RN also explained the importance if diabetes, proper diet and small meals 4-5 times a day. Also discussed the importance of glucose monitoring and maintaining levels with diet, exercise and insulin sliding scale. Patient verbalized understanding and agreed to spread out meals.
[2018-12-22 22:36] LABS: Bedside Glucose 268 mg/dL (70-110)
[2018-12-23] VITALS (15 sets, daily range): BP systolic 117–162; BP diastolic 55–80; PULSE 56–75; RESP 12–18; TEMP 36.4–36.6; O2SAT 94–100
[2018-12-23] MEDS: Insulin Lispro 100 UNIT/ML INSULN.PEN SC ×5 (03:08→21:40)
[2018-12-23 03:15] LABS: Bedside Glucose 263 mg/dL (70-110)
--- NOTE | 2018-12-23 06:41 | PCM.PN.BLA ---
Progress Note Left neck and chest clean and dry Dressings loose at catheter site and need changed I can see pt in the office as an outpt if future referral for a fistula is requested
[2018-12-23 06:51] LABS: Bedside Glucose 156 mg/dL (70-110)
--- NOTE | 2018-12-23 06:54 | NURSING ---
This RN resecured dialysis catheter OpSite and passed onto parlor maid that it needs changed due to coming loose.
[2018-12-23 07:09] LABS: Absolute Lymphocyte Count 1.63 X10^3/uL (0.83-4.51); Absolute Neutrophil Count 8.7 X10^3/uL (2.0-7.7); Basophil# 0.03 X10^3/uL; Basophil% 0.2 % (0-1); Eosinophil# 0.29 X10^3/uL; Eosinophils% 2.4 % (0-5); Hematocrit 32.5 % (40-54); Hemoglobin 10.4 g/dL (13.0-16.5); Lymphocyte # 1.63 X10^3/ul (4.0); Lymphocyte % 13.5 % (19-41); Mean Corpuscular Hgb 28.1 pg (27.0-32.0); Mean Corpuscular Volume 87.8 fL (80-94); Mean Platelet Vol. 10.1 fl (6.2-12.0); Monocyte# 0.84 X10^3/uL; NRBC Flagged by Analyzer 0 % (0-5); Neutrophil # 8.74 X10^3/uL (2.7-7.7); Neutrophil % 72.7 % (47-70); Platelet Count 253 K/mm3 (150-450); RBC Distribution Width CV 13.5 % (11.6-14.6); RBC Distribution Width SD 43.3 fl (35.1-43.9)
[2018-12-23] MEDS: Ipratropium/Albuterol Sulfate 3 ML AMPUL.NEB INHALATION ×3 (07:12→19:10)
[2018-12-23 07:25] LABS: Bedside Glucose 456 mg/dL (70-110)
[2018-12-23 07:25] LABS: Bedside Glucose 474 mg/dL (70-110)
[2018-12-23 07:30] LABS: Albumin, Serum 2.3 g/dL (3.2-5.0); BUN 85 mg/dL (7-18); BUN/Creat Ratio 16.6 RATIO (10-20); Calcium,Total 7.3 mg/dL (8.5-10.1); Chloride 103 mmol/L (98-107); Creatinine, Serum 5.12 mg/dL (0.70-1.30); EST Glomerular Filtration Rate 12 mL/min (>60); Est Glom Filt Rate - Afr Amer 15 mL/min (>60); Glucose 165 mg/dL (74-106); Phosphorus 5.4 mg/dL (2.5-4.9); Potassium 3.8 mmol/L (3.5-5.1); Sodium Level 139 mmol/L (136-145)
[2018-12-23] MEDS: Allopurinol 100 MG Tablet PO (08:14)
[2018-12-23] MEDS: predniSONE 10 MG Tablet 30 MG PO (08:15)
[2018-12-23] MEDS: Metoprolol Tartrate 25 MG Tablet 75 MG PO ×2 (08:15→21:39)
[2018-12-23] MEDS: Aspirin 81 MG TAB.CHEW PO (08:15)
[2018-12-23] MEDS: Calcium Acetate 667 MG Capsule 1334 MG PO ×3 (08:15→17:21)
--- NOTE | 2018-12-23 10:03 | PCM.TXEXTCAR ---
- Diet 12/22/18 18:01 Diet: Cardiac: Carb-Controlled Is pt able to select menu?: Yes Diet Comments: Supervision w/ assist PRN by staff/family; liquids by straw; meds w/purees, - Routine Orders/Code Status Enema Type: Fleetz Enema Frequency: Daily PRN Suppository Type: Dulcolax 10mg Suppository Frequency: Daily PRN O2 Frequency: PRN Keep PO Greater than or Equal to (%): 92 Routine Lab Work: CBC - renal profile, - Code Status: Full Code - Wound(s) RIGHT UPPER CHEST - CATHETER Wound Type: Surgical Incision L chest, dialysis cath Wound Type: Surgical Incision - Therapies Weight Bearing: Weight bearing as tolerated Physical Therapy: Eval and Treat Occupational Therapy: Eval and Treat - Allergies/Procedures Done in Hospital Allergies/Adverse Reactions: Allergies carvedilol [From Coreg] Allergy (Severe, Verified 12/10/18 19:58) vomiting sertraline HCl [From Zoloft] Allergy (Verified 12/10/18 19:58) Unknown isosorbide [From Imdur] Adverse Reaction (Severe, Verified 12/10/18 19:58) Unknown valsartan [From Diovan] Adverse Reaction (Severe, Verified 12/10/18 19:58) Possible angioedema, throat swelling bupropion HCl [From Wellbutrin] Adverse Reaction (Verified 12/10/18 19:58) gets mean citalopram Adverse Reaction (Verified 12/10/18 19:58) Other gabapentin Adverse Reaction (Verified 12/10/18 19:58) Other Procedures: Dialysis - Type of Care/Length of Stay Estimated LOS: Convalescent Care Less Than 30 days Type of Care Needed: Skilled Rehab Potential: Good Prognosis: Good - Additional Orders/Day of Discharge Additional Orders: for dialysis Mondays, Wednesdays and Fridays Day of Discharge: 12/23/18 - Dietary and Speech Recommendations Dietitian Recommendations/Changes: Continue cardiac, CHO controlled diet. - Follow Up Care Primary Care Physician: Davon Lemus MD [Primary Care Provider] - Please follow up with your Primary Care Physician in: one week Please Follow Up With: Monica Rodrigez MD When: one week Please Follow Up With: Rodri Lozano MD When: 1-2 weeks
--- NOTE | 2018-12-23 10:17 | CASEMGMT ---
Addendum entered by Jil Encarnacion 12/23/18 13:14: Call to Cindy at [facility] and she states that the financials have still not gone through but states will notify Regina MELCHOR as soon as she gets the approval. Jaylan STRICKLAND CM Original Note: Dialysis catheter notes, post CXR, and treatment faxed to [facility] and [facility] at this time. Call to Cindy at [facility] at this time and she states that she put through that pt is medically clear at this time and that we are just waiting on financial clearance. Cindy states that she will escalate financials to see if they can get pt approved today. Per Cindy, pt's tentative chair time is MWF at 1620 and pt to be there at 1600. Regina MELCHOR aware, voices understanding. Jaylan STRICKLAND CM
--- NOTE | 2018-12-23 11:30 | NURSING ---
Dressing to Tunneled dialysis cath performed. Old dressing removed. 2x2's removed. Area cleansed and tegaderm chg applied.
[2018-12-23] MEDS: Pantoprazole Sodium 40 MG Tablet PO (11:35)
[2018-12-23 11:45] LABS: Bedside Glucose 240 mg/dL (70-110)
--- NOTE | 2018-12-23 11:49 | DS.PCM_ITS ---
Discharge Date and Diagnosis - Problem List Patient Problems: Active and Suspected Problems (Last Reviewed 12/22/18 @ 12:42 by Mary Jo Jaramillo PA-C) Nephrotic range proteinuria (Acute) Chest pain (Acute) EDGARDO (acute kidney injury) (Acute) Date of Admission: 12/10/18 Date of Discharge: 12/23/18 - Primary Discharge Diagnosis Active and Suspected Problems (Last Reviewed 12/22/18 @ 12:42 by Mary Jo Jaramillo PA-C) Nephrotic range proteinuria (Acute) Chest pain (Acute) Edgardo on CKD IV Acute heart failure with preserved EF acute hypoxic respiratory failure community acquired pneumonia SVT - Secondary Discharge Diagnosis Chronic Problems (Last Reviewed 12/22/18 @ 12:42 by Mary Jo Jaramillo PA-C) Chronic renal disease, stage 5, glomerular filtration rate (GFR) less than or equal to 15 mL/min/1.73 square meter (Chronic) CKD (chronic kidney disease), stage III (Chronic) Pure hypercholesterolemia (Chronic) Type 2 diabetes mellitus (Chronic) Presence of stent in coronary artery (Chronic ~08/25/14) 07/18/10, PTCA/stent to mid to distal LCx artery; 08/17/10 PTCA/stent to proximal to mid RCA; PTCA of distal RCA with DEX September 2010; PTCA with EULALIO to mid distal AV groove left CFX 08/13 Essential hypertension (Chronic) Nonrheumatic aortic (valve) stenosis (Chronic) Nonspecific abnormal unspecified cardiovascular function study (Chronic) Diastolic dysfunction (Chronic) 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 Electronically Signed: Marek Sanchez DO at 21:57 EDT Tel [phone], Service support , Chest CT 12/14/18 07:36 IMPRESSION: Status post sternotomy mild cardiomegaly coronary artery disease. There is a perihilar pattern of groundglass opacities now some with consolidation with bilateral effusions. Findings are suspicious for pulmonary edema which may be cardiogenic. The differential includes diffuse pneumonia potentially hemorrhage in the appropriate clinical setting. There is reactive appearing lymphadenopathy and several reactive or potentially pathologic right paratracheal lymph nodes. Hepatosplenomegaly. The spleen measures 16 x 10 x 12.4 cm. Electronically Signed: Latia Alejandra MD at 9:20 EDT Tel , Service support , KUB X-Ray 12/14/18 19:41 IMPRESSION: Limited study due to patient's body habitus and motion Non-obstructive bowel gas pattern. NG tube with the tip in the stomach at 2055 Reported and signed by: Latia Mathews DO Electronically Signed: Latia Mathews DO at 20:54 EDT Tel , Service support , Chest X-Ray 12/22/18 17:25 IMPRESSION: Dialysis catheter noted on the left with tip in distal superior vena cava. No evidence for pneumothorax status post catheter placement Electronically Signed: Yeison Ross MD at 19:17 EDT , Service support , nephrology- Dr Rodrigez Cardiology- Dr Giraldo pulmonology- Dr Guthrie Operations: [email or web address] - 10/29/[address] Arnol Brooks, ERCP - Dr. Solis on 10/27/13 and 10/30/13 Procedures: 2-D Echocardiogram, Dialysis Summary of Care Provided: The patient is a 68 year old M with past medical history as listed. He was admitted through the ED on 12/10/18 with a complaint of shortness of breath. He was also tachycardic and noted that he had a heart about a 20 pound again in weight over the past year. He was initially saturating at 91% on room air. BNP was 460 and troponins were negative. Initial chest x-ray showed multifocal infiltrates bilaterally. He was initially admitted and managed for acute decompensated heart failure with preserved EF. He was diuresed with IV Lasix. However due to worsening renal insufficiency, diuretics were held. He was also started on antibiotics for community-acquired pneumonia. 2D echo done showed normal left ventricular size with EF of 65% and moderate to severe aortic stenosis. Nephrology was subsequently consulted on account of EDGARDO on CKD. He was also noted to have significant proteinuria which was in the nephrotic range. Creatinine however Trending up and Patient Shortness of Breath Persisted. Patient Stay Was Further Complicated by Iron Deficiency Anemia for Which She Received 1 Unit of Packed Red Blood Cells. Stool for Occult Blood Was Also Positive and He Was Put on PPI and Iron Supplementation. Patient Eventually Had to Be Intubated on Account of Worsening Acute Hypoxic Respiratory Failure and Failing BiPAP Therapy. Respiratory Failure Was Also Thought to Be Due To Multilobar Community-Acquired Pneumonia. He Was Transferred to the ICU on 12/14/2018 and Intubated and Sedated. Patient Eventually Had to Start Dialysis on Account of Worsening Renal Function. Renal Ultrasound Done Showed Bilateral Renal Cyst. Patient was subsequently extubated successfully. He completed 7 days of IV Zosyn. However stay was also further complicated by SVT which resolved with adenosine. He was put on p.o. metoprolol which had been on at home and dose was increased and 5 mg twice daily. Patient remained stable and received repeated sessions of dialysis. It was deemed that he would need long- term dialysis for now he had a dialysis tunneled catheter put in on 12/22/2018. [facility]. He is follow-up with his primary care doctor, cardiology and nephrology. Patient seen and examined prior to discharge. He had no complaints and felt well. Review of systems otherwise negative. Labs and vitals reviewed. Medication reviewed and reconciled. o/e: Vital Signs Height 5 ft 9 in Weight: 234 lb 2.095 oz Weight in Pounds 234.1 lbs Pulse Ox 97 Temperature 97.6 F Pulse Rate 68 Respiratory Rate 16 Blood Pressure [BP] 166/84 Blood Pressure 162/80 Blood Pressure Position [BP] Semi-Fowlers Blood Pressure Position Semi-Fowlers ] General: Alert, Oriented x3, Cooperative, No apparent distress HEENT: Atraumatic, PERRLA, EOMI, Normocephalic Oral: Moist Mucosa Neck: Supple, No JVD, Negative Carotid Bruits Lungs: Clear to auscultation, Normal air movement, No rhonchi, No wheeze Cardiovascular: Regular rate, Regular Rhythm, Normal S1, Normal S2, No murmurs Abdomen: Bowel Sounds Present, Soft, Non Tender, Non-Distended, No Hepato- splenomegaly Extremities: No clubbing, No cyanosis, No edema, Capillary Refill Less than 3 Seconds Skin: No rashes, No breakdown Musculoskeletal: - - tunneled dialysis catheter in place Lymphatic: No Cervical, Supraclavicular, or Inguinal Adenopathy Neurological: Cranial nerves II-XII grossly intact, Neuro grossly intact, Motor Exam 5/5 strength throughout Psych/Mental Status: Normal Affect, Appropriate, Alert and oriented to time, place, person, mood and affect Plan as above. He is to have regular dialysis sessions on Wednesdays and Fridays. Patient Problems: Active and Suspected Problems (Last Reviewed 12/22/18 @ 12:42 by Mary Jo Jaramillo PA-C) Nephrotic range proteinuria (Acute) Chest pain (Acute) EDGARDO (acute kidney injury) (Acute) - Physical Exam Vital Signs Temp Pulse Resp BP Pulse Ox 97.8 F 65 18 117/58 L 96 12/23/18 09:00 12/23/18 09:00 12/23/18 09:00 12/23/18 09:00 12/23/18 09:00 Oxygen Flow Rate (L/min) 94 Oxygen Delivery Method Room Air Weight: 234 lb 2.095 oz Body Mass Index (BMI) 35.9 Finger Stick Blood Glucose 269 Intake and Output for Last 24 Hours 12/21/18 12/22/18 12/23/18 23:59 23:59 23:59 Intake Total 3251.50 / 3251.50 1058.5 / 1058.5 240 / 240 Output Total 1974 2725 / 2725 Balance 1276.50 / 1276.50 -1666.5 / -1666.5 240 / 240 Laboratory Tests Past 24 Hrs 12/22/18 12/22/18 12/23/18 14:50 14:50 05:53 WBC 14.0 H 12.0 H RBC 4.01 L 3.70 L Hgb 11.3 L 10.4 L Hct 34.3 L 32.5 L MCV 85.5 87.8 MCH 28.2 28.1 MCHC 32.9 32.0 RDW Std Deviation 41.1 43.3 RDW Coeff of Judi 13.2 13.5 Plt Count 261 253 MPV 9.2 10.1 Immature Gran % (Auto) 3.900 H 4.200 H Neut % (Auto) 78.1 H 72.7 H Lymph % (Auto) 10.6 L 13.5 L [place] % (Auto) 5.3 7.0 Eos % (Auto) 1.9 2.4 Baso % (Auto) 0.2 0.2 Absolute Neuts (auto) 11.0 H 8.7 H Absolute Lymphs (auto) 1.49 1.63 Nucleated RBC % 0 0 PT 13.7 INR 1.1 APTT 26.8 Sodium Potassium Chloride Carbon Dioxide BUN Creatinine Estim Creat Clear Calc Est GFR (MDRD) Af Amer Est GFR (MDRD) Non-Af BUN/Creatinine Ratio Glucose Calcium Phosphorus Albumin 12/23/18 05:53 WBC RBC Hgb Hct MCV MCH MCHC RDW Std Deviation RDW Coeff of Judi Plt Count MPV Immature Gran % (Auto) Neut % (Auto) Lymph % (Auto) [place] % (Auto) Eos % (Auto) Baso % (Auto) Absolute Neuts (auto) Absolute Lymphs (auto) Nucleated RBC % PT INR APTT Sodium 139 Potassium 3.8 Chloride 103 Carbon Dioxide 27.0 BUN 85 H Creatinine 5.12 H Estim Creat Clear Calc 14.00 Est GFR (MDRD) Af Amer 15 L Est GFR (MDRD) Non-Af 12 L BUN/Creatinine Ratio 16.6 Glucose 165 H Calcium 7.3 L Phosphorus 5.4 H Albumin 2.3 L POC Glucose 12/23/18 12/23/18 12/23/18 11:33 06:35 03:06 POC Glucose 240 H 156 H 263 H 12/22/18 12/22/18 12/22/18 21:09 17:31 16:06 POC Glucose 268 H 160 H 196 H 12/22/18 12/21/18 12/21/18 12:40 16:32 16:29 POC Glucose 218 H 456 H* 474 H* Discharge Diet: Renal Diet Discharge Activity: Return to Normal Activity Weight Bearing Status: Weight bearing as tolerated Call your doctor if your incision/area has: Continuous Slow Oozing, Increased Pain/ Swelling, Increased Redness, Foul Smelling Discharge, Swelling at the incision site Call your doctor if you observe: Fever of 101 or Higher, Shortness of breath, Swelling in the ankles, Chest pain Home Medications: Medications to take at Discharge Aspirin [Ecotrin] 81 mg PO DAILY 10/27/13 Nitroglycerin (INPATIENT USE) [Nitrostat] 0.4 mg SUBLINGUAL Q5M PRN 10/27/13 Ammonium Lactate [Amlactin] 1 applic TP PRN PRN 06/20/17 allopurinol 100 mg tablet 100 mg PO QDAY 06/24/17 coenzyme Q10 400 mg capsule 400 mg PO BID #90 cap 09/13/17 berberine-herbal comb no.18 capsule 1 cap PO BID cap 02/24/18 fenofibrate nanocrystallized 160 mg tablet 160 mg PO DAILY #30 tab 02/24/18 fluoxetine 10 mg tablet 40 mg PO DAILY 05/28/18 traZODone [Desyrel] 50 mg PO QHS PRN 12/11/18 Insulin Glargine [Lantus SoloStar Pen] 50 units SUBCUT BID #5 pen 12/23/18 Metoprolol Tartrate [Lopressor (beta yana)] 75 mg PO BID #180 tab 12/23/18 Following Prescrptions Were Given to Patient: Insulin Glargine [Lantus SoloStar Pen] 50 units SUBCUT BID #5 pen Prescription Printed Metoprolol Tartrate [Lopressor (beta yana)] 75 mg PO BID #180 tab Prescription Printed Primary Care Physician: Davon Lemus MD [Primary Care Provider] - Please follow up with your Primary Care Physician in: one week Please Follow Up With: Monica Rodrigez MD When: one week Please Follow Up With: Rodri Lozano MD When: 1-2 weeks Disposition: Long-Term facility Minutes spent on discharge:: 50 Patient Condition:: Stable Medical Necessity - Tobacco Use Smoking Status: Former smoker Tobacco Use: Non-smoker Meaningful Use Info Meaningful Use Diagnoses (Choose all that apply): CHF - CHF WILMER/ARB ordered at discharge?: No Reason WILMER/ARB not ordered?: Worsening renal disease Documented LVEF (%): 55 Code Visit Inpatient E&M: 24565 Disch Hosp
--- NOTE | 2018-12-23 13:41 | PCM.PN.REN ---
Patient Problems: Active and Suspected Problems (Last Reviewed 12/22/18 @ 12:42 by Mary Jo Jaramillo PA-C) Nephrotic range proteinuria (Acute) Chest pain (Acute) EDGARDO (acute kidney injury) (Acute) Subjective: No new complaints - Physical Exam General: Alert, Oriented x3, Cooperative HEENT: Atraumatic, PERRLA, EOMI, Normocephalic Neck: Supple, No JVD, Negative Carotid Bruits Lungs: Clear to auscultation, Normal air movement Cardiovascular: Regular rate, No murmurs Abdomen: Bowel Sounds Present, Soft, Non Tender Extremities: No edema, Capillary Refill Less than 3 Seconds Skin: No rashes, No breakdown Musculoskeletal: No Tenderness to Palpation of Joints or Extremities Neurological: Cranial nerves II-XII grossly intact Psych/Mental Status: Normal Affect, Appropriate Vital Signs Temp Pulse Resp BP Pulse Ox 97.8 F 65 18 117/58 L 96 12/23/18 09:00 12/23/18 09:00 12/23/18 09:00 12/23/18 09:00 12/23/18 09:00 Oxygen Flow Rate (L/min) 94 Oxygen Delivery Method Room Air Weight: 106.2 kg Body Mass Index (BMI) 35.9 Finger Stick Blood Glucose 269 Intake and Output for Last 24 Hours 12/21/18 12/22/18 12/23/18 23:59 23:59 23:59 Intake Total 3251.50 / 3251.50 1058.5 / 1058.5 480 / 480 Output Total 1974 / 1974 2725 / 2725 Balance 1276.50 / 1276.50 -1666.5 / -1666.5 480 / 480 Laboratory Tests Past 24 Hrs 12/22/18 12/22/18 12/23/18 14:50 14:50 05:53 WBC 14.0 H 12.0 H RBC 4.01 L 3.70 L Hgb 11.3 L 10.4 L Hct 34.3 L 32.5 L MCV 85.5 87.8 MCH 28.2 28.1 MCHC 32.9 32.0 RDW Std Deviation 41.1 43.3 RDW Coeff of Judi 13.2 13.5 Plt Count 261 253 MPV 9.2 10.1 Immature Gran % (Auto) 3.900 H 4.200 H Neut % (Auto) 78.1 H 72.7 H Lymph % (Auto) 10.6 L 13.5 L [place] % (Auto) 5.3 7.0 Eos % (Auto) 1.9 2.4 Baso % (Auto) 0.2 0.2 Absolute Neuts (auto) 11.0 H 8.7 H Absolute Lymphs (auto) 1.49 1.63 Nucleated RBC % 0 0 PT 13.7 INR 1.1 APTT 26.8 Sodium Potassium Chloride Carbon Dioxide BUN Creatinine Estim Creat Clear Calc Est GFR (MDRD) Af Amer Est GFR (MDRD) Non-Af BUN/Creatinine Ratio Glucose Calcium Phosphorus Albumin 12/23/18 05:53 WBC RBC Hgb Hct MCV MCH MCHC RDW Std Deviation RDW Coeff of Judi Plt Count MPV Immature Gran % (Auto) Neut % (Auto) Lymph % (Auto) [place] % (Auto) Eos % (Auto) Baso % (Auto) Absolute Neuts (auto) Absolute Lymphs (auto) Nucleated RBC % PT INR APTT Sodium 139 Potassium 3.8 Chloride 103 Carbon Dioxide 27.0 BUN 85 H Creatinine 5.12 H Estim Creat Clear Calc 14.00 Est GFR (MDRD) Af Amer 15 L Est GFR (MDRD) Non-Af 12 L BUN/Creatinine Ratio 16.6 Glucose 165 H Calcium 7.3 L Phosphorus 5.4 H Albumin 2.3 L POC Glucose 12/23/18 12/23/18 12/23/18 11:33 06:35 03:06 POC Glucose 240 H 156 H 263 H 12/22/18 12/22/18 12/22/18 21:09 17:31 16:06 POC Glucose 268 H 160 H 196 H 12/22/18 12/21/18 12/21/18 12:40 16:32 16:29 POC Glucose 218 H 456 H* 474 H* Medical Necessity - Tobacco Use Smoking Status: Former smoker Tobacco Use: Non-smoker Assessment/Plan All Active Problems (Last Reviewed 12/22/18 @ 12:42 by Mary Jo Jaramillo PA-C) Nephrotic range proteinuria (Acute) CHF exacerbation (Acute) Chest pain (Acute) EDGARDO (acute kidney injury) (Acute) Choledocholithiasis with acute cholecystitis (Acute) Abnormal LFTs (Acute) 1- EDGARDO on CKD stage 4. Baseline Cr ~ 2.6-2.7 mg/dL from most probably DNP. Pt has significant proteinuria. Pro/Cr was a 11 mg/mg. EDGARDO is from ATN related to sepsis. Pt is now HD dependent for metabolic and fluid support. HD initiated on 12/15 Pt is non oliguric. No solute clearance. BUN and Cr continue to increase significantly between HD session continue HD as per [facility] schedule ok to dc 2- Hyperkalemia : Resolved with hemodialysis 3-High anion gap acidosis. from EDGARDO. resolved with HD 4- Hyperphosphatemia: from EDGARDO. on Phoslo with meals 5- ARF from pneumonia and ARDS Vs CHF Improved. extubated. On RA has a tunneled line paperwork sent in for confirmation of dialysis spot once approved he can be discharged he is EDGARDO
--- NOTE | 2018-12-23 15:59 | CASEMGMT ---
JILL received a call from Cindy at [facility]. She said she just got an e-mail from the people that do the financial clearance and apparently they are going through the [place]. She is not sure why they are going through the [place] and not Medicare. GAURI Roberts left a voice mail for Shaniqua the regional contact with [facility]. She may be able to help expedite this. However, this is not likely to happen today. JILL will notify patient, RN, and [facility]. Sarita JERNIGAN MSW
--- NOTE | 2018-12-23 16:17 | PN_ITS ---
Patient Problems: Active and Suspected Problems (Last Reviewed 12/22/18 @ 12:42 by Mary Jo Jaramillo PA-C) Nephrotic range proteinuria (Acute) Chest pain (Acute) EDGARDO (acute kidney injury) (Acute) Subjective: Patient seen and examined. He had no complaints and felt well. Review of systems otherwise negative. He had placement of tunneled dialysis catheter yesterday by Dr. Benites. Review of systems otherwise negative. Plan was to discharge patient today but hospitalist was just informed by charge nurse that patient could not be discharged on account of financial issues concerning his dialysis. Vitals/I&O's: Vital Signs Temp Pulse Resp BP Pulse Ox 97.6 F L 68 16 162/80 H 97 12/23/18 15:00 12/23/18 15:00 12/23/18 15:00 12/23/18 15:00 12/23/18 15:00 Oxygen Flow Rate (L/min) 94 Oxygen Delivery Method Room Air Weight: 234 lb 2.095 oz Body Mass Index (BMI) 35.9 Finger Stick Blood Glucose 269 Intake and Output for Last 24 Hours 12/21/18 12/22/18 12/23/18 23:59 23:59 23:59 Intake Total 3251.50 / 3251.50 1058.5 / 1058.5 480 / 480 Output Total 1974 2725 / 2725 Balance 1276.50 / 1276.50 -1666.5 / -1666.5 480 / 480 General: Alert, Oriented x3, Cooperative, No apparent distress HEENT: Atraumatic, PERRLA, EOMI, Normocephalic Oral: Moist Mucosa Neck: Supple, No JVD, Negative Carotid Bruits Lungs: Clear to auscultation, Normal air movement, No rhonchi, No wheeze Cardiovascular: Regular rate, Regular Rhythm, Normal S1, Normal S2, No murmurs Abdomen: Bowel Sounds Present, Soft, Non Tender, Non-Distended, No Hepato- splenomegaly Extremities: No clubbing, No cyanosis, No edema, Capillary Refill Less than 3 Seconds Skin: No rashes, No breakdown Musculoskeletal: - - tunneled dialysis catheter in place Lymphatic: No Cervical, Supraclavicular, or Inguinal Adenopathy Neurological: Cranial nerves II-XII grossly intact, Neuro grossly intact, Motor Exam 5/5 strength throughout Psych/Mental Status: Normal Affect, Appropriate, Alert and oriented to time, place, person, mood and affect Laboratory Results 12/21/18 16:29: POC Glucose 474 H* 12/21/18 16:32: POC Glucose 456 H* 12/22/18 16:06: POC Glucose 196 H 12/22/18 17:31: POC Glucose 160 H 12/22/18 21:09: POC Glucose 268 H 12/23/18 03:06: POC Glucose 263 H 12/23/18 05:53: WBC 12.0 H, RBC 3.70 L, Hgb 10.4 L, Hct 32.5 L, MCV 87.8, MCH 28.1, MCHC 32.0, RDW Std Deviation 43.3, RDW Coeff of Judi 13.5, Plt Count 253, MPV 10.1, Immature Gran % (Auto) 4.200 H, Neut % (Auto) 72.7 H, Lymph % (Auto) 13.5 L, [place]row % (Auto) 7.0, Eos % (Auto) 2.4, Baso % (Auto) 0.2, Absolute Neuts (auto) 8.7 H, Absolute Lymphs (auto) 1.63, Nucleated RBC % 0 12/23/18 05:53: Sodium 139, Potassium 3.8, Chloride 103, Carbon Dioxide 27.0, BUN 85 H, Creatinine 5.12 H, Estim Creat Clear Calc 14.00, Est GFR (MDRD) Af Amer 15 L, Est GFR (MDRD) Non-Af 12 L, BUN/Creatinine Ratio 16.6, Glucose 165 H, Calcium 7.3 L, Phosphorus 5.4 H, Albumin 2.3 L 12/23/18 06:35: POC Glucose 156 H 12/23/18 11:33: POC Glucose 240 H Current Medications Acetaminophen (Tylenol) 650 mg PO Q6H PRN PRN Reason: NON CARDIAC PAIN (MOD-SEVERE) Hydrocodone Bitart/Acetaminophen ([place] 5mg-325mg) 1 tablet PO Q6H PRN PRN PRN Reason: PAIN Al Hydroxide/Mg Hydroxide (Mylanta Ii) 15 - 30 ml PO Q4H PRN PRN PRN Reason: INDIGESTION Albuterol Sulfate (Ventolin Aerosols) 2.5 mg INHALATION Q2H PRN PRN PRN Reason: dyspnea, wheezing Albuterol/Ipratropium (Duoneb) 3 ml INHALATION Q6HWA.RT [facility] Last Admin: 12/23/18 13:19 Dose: 3 ml Documented by: Allopurinol (Zyloprim) 100 mg PO DAILY [facility] Last Admin: 12/23/18 08:14 Dose: 100 mg Documented by: Aspirin (Aspirin, Baby) 81 mg PO DAILY@0800 [facility] Last Admin: 12/23/18 08:15 Dose: 81 mg Documented by: Calcium Acetate (Phoslo Gel Cap) 1,334 mg PO TIDCM [facility] Last Admin: 12/23/18 11:35 Dose: 1,334 mg Documented by: Dextrose (D50w Syringe) 0 gm IV X1 PRN; Protocol PRN Reason: Hypoglycemia Glucagon () 1 mg IM .X1 PRN PRN Reason: Hypoglycemia Heparin Sodium (Porcine) (Heparin Na) 5,000 unit SC Q12 [facility] Last Admin: 12/23/18 11:34 Dose: Not Given Documented by: Sodium Chloride () 250 mls @ 15 mls/hr IV .[id number] PRN PRN Reason: SALINE FLUSH Last Infusion: 12/22/18 16:00 Dose: 15 mls/hr Documented by: Insulin Glargine (Lantus (Bkc)) 50 units SC BID [facility] Last Admin: 12/23/18 08:15 Dose: 50 u Documented by: Insulin Human Lispro (Humalog Kwikpen (Bkc)) 0 unit SC ACHS & 3AM [facility]; Protocol Last Admin: 12/23/18 11:35 Dose: 6 u Documented by: Magnesium Hydroxide (Milk Of Magnesia) 30 ml PO DAILY PRN PRN Reason: Constipation Metoprolol Tartrate (Lopressor (Beta Ayde)) 75 mg PO BID [facility] Last Admin: 12/23/18 08:15 Dose: 75 mg Documented by: Nitroglycerin (Nitrostat) 0.4 mg SUBLINGUAL Q5M PRN PRN Reason: CARDIAC/CHEST PAIN Ondansetron HCl (Zofran) 4 mg IV Q8H PRN PRN PRN Reason: NAUSEA/VOMITING Pantoprazole Sodium (Protonix) 40 mg PO DAILY [facility] Last Admin: 12/23/18 11:35 Dose: 40 mg Documented by: Pharmacy Profile Note () 1 each NOTE X1 PRN PRN Reason: NOT SPECIFIED Polyethylene Glycol (Miralax) 17 gm PO DAILY PRN PRN PRN Reason: CONSTIPATION Prednisone () 30 mg PO DAILYCM [facility] Last Admin: 12/23/18 08:15 Dose: 30 mg Documented by: Senna/Docusate Sodium (Senokot-S, Christina-Colace) 2 tablet PO BID [facility] Last Admin: 12/23/18 08:20 Dose: Not Given Documented by: Sodium Chloride () 10 - 40 ml IV UD PRN PRN Reason: SALINE FLUSH Last Admin: 12/22/18 21:16 Dose: 10 ml Documented by: Medical Necessity - Tobacco Use Smoking Status: Former smoker Tobacco Use: Non-smoker Assessment/Plan All Active Problems (Last Reviewed 12/22/18 @ 12:42 by Mary Jo Jaramillo PA-C) Nephrotic range proteinuria (Acute) CHF exacerbation (Acute) Chest pain (Acute) EDGARDO (acute kidney injury) (Acute) Choledocholithiasis with acute cholecystitis (Acute) Abnormal LFTs (Acute) 1. 1. EDGARDO on CKD stage 4 * baseline CR is ~ 2.6-2.7 * per nephrology, it is probably due to diabetic nephropathy * Had tunneled dialysis catheter placed yesterday. * to have regular dialysis on Wednesdays and Fridays. * on Phoslo for hyperphosphatemia * * 2. Chronic diastolic heart failure: stable. Lasix stopped o/a of worsening renal function 3. Episodic SVT: resolved with administration of adenosine. On metoprolol 4. Community acquired pneumonia: resolved. Completed course of IV zosyn 5. CAD status post CABG and PCI: * Had chest pain during this admission. * Continue medical management for now. to have cardiac cath when kidney function recovers. * On aspirin and metoprolol. 6. Hypertension: on metoprolol. Controlled 7. Acute on chronic anemia: s/o 2 units of pRBCS. stable. 8. Aortic valve stenosis: moderate to severe. To follow up with cardiology upon discharge. 9. Type 2 diabetes mellitus: blood sugars are fluctuating, and poorly controlled. sugars have been in high 400s. on lantus 50IU. ISS. Accuchecks ACHS DVT prophylaxis: heparin GI prophylaxis: PPI Disposition: [facility] issues concerning dialysis payment. Likely discharge tomorrow once this is sorted out. Code Visit Inpatient E&M: 22210 Subs Hosp L2
[2018-12-23 16:36] LABS: Bedside Glucose 366 mg/dL (70-110)
[2018-12-23] MEDS: Heparin Injection (Vial) 5,000 UNIT/ML VIAL 5000 UNIT SC (21:38)
[2018-12-23 22:11] LABS: Bedside Glucose 381 mg/dL (70-110)
[2018-12-24] VITALS (10 sets, daily range): BP systolic 137–146; BP diastolic 62–84; PULSE 60–72; RESP 12–18; TEMP 36.4–36.6; O2SAT 94–100
[2018-12-24] MEDS: Insulin Lispro 100 UNIT/ML INSULN.PEN SC ×3 (02:34→11:57)
[2018-12-24 02:41] LABS: Bedside Glucose 273 mg/dL (70-110)
[2018-12-24] MEDS: Ipratropium/Albuterol Sulfate 3 ML AMPUL.NEB INHALATION ×2 (06:43→13:07)
[2018-12-24 06:55] LABS: Bedside Glucose 195 mg/dL (70-110)
[2018-12-24] MEDS: Heparin Injection (Vial) 5,000 UNIT/ML VIAL 5000 UNIT SC (08:47)
[2018-12-24] MEDS: predniSONE 10 MG Tablet 30 MG PO (08:48)
[2018-12-24] MEDS: Calcium Acetate 667 MG Capsule 1334 MG PO ×2 (08:49→11:57)
[2018-12-24] MEDS: Metoprolol Tartrate 25 MG Tablet 75 MG PO (08:49)
[2018-12-24] MEDS: Aspirin 81 MG TAB.CHEW PO (08:49)
[2018-12-24] MEDS: Allopurinol 100 MG Tablet PO (08:49)
[2018-12-24] MEDS: Pantoprazole Sodium 40 MG Tablet PO (08:49)
--- NOTE | 2018-12-24 09:45 | CASEMGMT ---
Addendum entered by Jil Encarnacion 12/24/18 12:26: Pt updated on all again at this time, voices understanding. Pt voices no further questions/concerns/needs at this time. Pt states is a at this time but will be to pick him up after. Jaylan RN CM Addendum entered by Jil Encarnacion 12/24/18 12:01: This RN CM received call from Cindy at [facility] stating that pt is approved for OP dialysis later today at 1620 at this time. Schedule letter received by this RN CM via fax, copy to pt and to Regina MELCHOR for [facility] as well as a copy to chart at this time. Pt/ updated on all by Regina MELCHOR at this time. Jaylan STRICKLAND CM Addendum entered by Jil Encarnacion 12/24/18 10:07: This RN CM also spoke with Cindy at [facility] and she states she has not been updated on anything yet at this time. Jaylan STRICKLAND CM Original Note: This RN CM left a message with Shaniqua Dickey, [facility] and Pt donor services specialist, as well as, Tenzin Weathers, [facility] admissions contact, in regards to financials to figure out [facility] or [facility]. Per Regina MELCHOR, who spoke with pt regarding same yesterday, pt does not want the dialysis put through his [facility] coverage at this time. This RN CM is waiting call back as pt was ready for discharge yesterday. Jaylan STRICKLAND CM
[2018-12-24 11:10] LABS: Bedside Glucose 183 mg/dL (70-110)
--- NOTE | 2018-12-24 12:06 | PN.RENAL_ITS ---
Patient Problems: Active and Suspected Problems (Last Reviewed 12/22/18 @ 12:42 by Mary Jo Jaramillo PA-C) Nephrotic range proteinuria (Acute) Chest pain (Acute) EDGARDO (acute kidney injury) (Acute) Subjective: no new complaints - Physical Exam General: Alert, Oriented x3, Cooperative HEENT: Atraumatic, PERRLA, EOMI, Normocephalic Neck: Supple, No JVD, Negative Carotid Bruits Lungs: Clear to auscultation, Normal air movement Cardiovascular: Regular rate, No murmurs Abdomen: Bowel Sounds Present, Soft, Non Tender Extremities: No edema, Capillary Refill Less than 3 Seconds Skin: No rashes, No breakdown Musculoskeletal: No Tenderness to Palpation of Joints or Extremities Neurological: Cranial nerves II-XII grossly intact Psych/Mental Status: Normal Affect, Appropriate Vital Signs Temp Pulse Resp BP Pulse Ox 97.9 F 64 18 146/84 H 99 12/24/18 08:45 12/24/18 08:49 12/24/18 08:45 12/24/18 08:45 12/24/18 08:45 Oxygen Flow Rate (L/min) 94 Oxygen Delivery Method Room Air Weight: 104.9 kg Body Mass Index (BMI) 35.9 Finger Stick Blood Glucose 269 Intake and Output for Last 24 Hours 12/22/18 12/23/18 12/24/18 23:59 23:59 23:59 Intake Total 1058.5 / 1058.5 1620 / 1620 1200 / 1200 Output Total 2725 / 2725 Balance -1666.5 / -1666.5 1620 / 1620 1200 / 1200 POC Glucose 12/24/18 12/24/18 12/24/18 10:57 06:24 02:32 POC Glucose 183 H 195 H 273 H 12/23/18 12/23/18 21:24 16:21 POC Glucose 381 H 366 H Medical Necessity - Tobacco Use Smoking Status: Former smoker Tobacco Use: Non-smoker Assessment/Plan All Active Problems (Last Reviewed 12/22/18 @ 12:42 by Mary Jo Jaramillo PA-C) Nephrotic range proteinuria (Acute) CHF exacerbation (Acute) Chest pain (Acute) EDGARDO (acute kidney injury) (Acute) Choledocholithiasis with acute cholecystitis (Acute) Abnormal LFTs (Acute) 1- EDGARDO on CKD stage 4. Baseline Cr ~ 2.6-2.7 mg/dL from most probably DNP. Pt has significant proteinuria. Pro/Cr was a 11 mg/mg. EDGARDO is from ATN related to sepsis. Pt is now HD dependent for metabolic and fluid support. HD initiated on 12/15 Pt is non oliguric. No solute clearance. BUN and Cr continue to increase significantly between HD session continue HD as per MWF schedule ok to dc 2- Hyperkalemia : Resolved with hemodialysis 3-High anion gap acidosis. from EDGARDO. resolved with HD 4- Hyperphosphatemia: from EDGARDO. on Phoslo with meals 5- ARF from pneumonia and ARDS Vs CHF Improved. extubated. On RA has a tunneled line dc today and ok to go to dialysis as outpatient today evening he is going to [facility]
--- NOTE | 2018-12-24 13:01 | NURSING ---
Called report to Sita [facility]ICKLAND at [facility]
== END 2018-12-24 13:44 | disposition skilled nursing facility (03) | DRG 208 ==
LOC: ED 21:44 → PCU 23:50 → ICU 12-14 16:17 → PCU 12-18 09:05
PROVIDERS: Hospitalist; Internal Medicine; Internal Medicine Critical Care Medicine; Internal Medicine Nephrology; Nurse Practitioner Family; Surgery; Admitting Provider Family Medicine; Emergency Provider Emergency Medicine; Family Provider Internal Medicine; PCP Internal Medicine; Visit Provider Student in an Organized Health Care Education/Training Program
PROC: 0JH63XZ Insertion of Tunneled Vascular Access Device into Chest Subcutaneous Tissue and Fascia, Percutaneous Approach (ICD-10-PCS; principal; 2018-12-22 16:15)
DX: J18.9 Pneumonia, unspecified organism (principal); I50.33 Acute on chronic diastolic (congestive) heart failure; J96.01 Acute respiratory failure with hypoxia; N17.0 Acute kidney failure with tubular necrosis; I13.2 Hypertensive heart and chronic kidney disease with heart failure and with stage 5 chronic kidney disease, or end stage renal disease; I47.1 Supraventricular tachycardia; I25.810 Atherosclerosis of coronary artery bypass graft(s) without angina pectoris; E87.2 Acidosis; J44.0 Chronic obstructive pulmonary disease with (acute) lower respiratory infection; N18.4 Chronic kidney disease, stage 4 (severe); I25.10 Atherosclerotic heart disease of native coronary artery without angina pectoris; G47.33 Obstructive sleep apnea (adult) (pediatric); E11.22 Type 2 diabetes mellitus with diabetic chronic kidney disease; D50.9 Iron deficiency anemia, unspecified; E78.00 Pure hypercholesterolemia, unspecified; K21.9 Gastro-esophageal reflux disease without esophagitis; I35.0 Nonrheumatic aortic (valve) stenosis; Z79.82 Long term (current) use of aspirin; Z68.35 Body mass index [BMI] 35.0-35.9, adult; Z95.1 Presence of aortocoronary bypass graft; Z79.4 Long term (current) use of insulin; Z95.5 Presence of coronary angioplasty implant and graft; R19.5 Other fecal abnormalities; Z79.899 Other long term (current) drug therapy; F32.9 Major depressive disorder, single episode, unspecified; F41.9 Anxiety disorder, unspecified; E87.5 Hyperkalemia; E83.39 Other disorders of phosphorus metabolism; Z87.891 Personal history of nicotine dependence
CPT/HCPCS: 31500; 31720; 36415; 36600; 71045; 71046; 71250; 74018; 76000; 76770; 80048; 80053; 80061; 80069; 80076; 81001; 82274; 82550; 82570; 82607; 82728; 82746; 82803; 82947; 82962; 83036; 83540; 83550; 83605; 83735; 83880; 84100; 84300; 84443; 84478; 84484; 85025; 85027; 85610; 85652; 85730; 86140; 86704; 86706; 86850; 86900; 86901; 86920; 86922; 87070; 87086; 87088; 87205; 87340; 87449; 87633; 87641; 90937; 92526; 92610; 93005; 93306; 94002; 94003; 94640; 94660; 94667; 94668; 95831; 97110; 97116; 97162; 97166; 97168; 97530; 97535; 97802; 99251; 99283; J7030; J7040; J7050; P9016; Q9957; A4216; C1752; C8929; G0257; G0463; J0153; J1940; J2405

== ENCOUNTER → 2019-02-14 08:31 | Outpatient (CLI) | payer MEDICARE, OTHER, SELFPAY ==
[2019-01-06 15:49] VITALS: BMI 34.9
[2019-02-14 09:37] LABS: Protein, Urine (Random) 248.4 mg/dL (<11.9); Protein:Creat Ratio 3230 mg/g CRE (0-200)
[2019-02-14 09:54] LABS: Albumin, Serum 3.3 g/dL (3.2-5.0); BUN 39 mg/dL (7-18); BUN/Creat Ratio 13.1 RATIO (10-20); Calcium,Total 8.5 mg/dL (8.5-10.1); Chloride 108 mmol/L (98-107); Creatinine, Serum 2.98 mg/dL (0.70-1.30); EST Glomerular Filtration Rate 22 mL/min (>60); Est Glom Filt Rate - Afr Amer 27 mL/min (>60); Glucose 198 mg/dL (74-106); Phosphorus 3.2 mg/dL (2.5-4.9); Potassium 4.1 mmol/L (3.5-5.1); Sodium Level 142 mmol/L (136-145)
== END ==
LOC: LAB.FUTURE 08:34 → LAB 02-16 06:44
PROVIDERS: Family Provider Internal Medicine; PCP Internal Medicine; Referring Provider Internal Medicine Nephrology; Visit Provider Internal Medicine Nephrology
DX: N18.4 Chronic kidney disease, stage 4 (severe) (principal); R80.9 Proteinuria, unspecified
CPT/HCPCS: 36415; 80069; 82570; 84156

== ENCOUNTER 2019-02-25 18:30 | Inpatient (IN) | payer MEDICARE, OTHER, SELFPAY ==
[2019-01-06 15:49] VITALS: BMI 34.9
[2019-02-25] VITALS (7 sets, daily range): BP systolic 124–147; BP diastolic 74–95; PULSE 68–111; RESP 15–28; TEMP 36.3–36.9; O2SAT 94–97; BMI 35.4; BMI 37.1; BMI 37.2
--- NOTE | 2019-02-25 18:44 | EKG12_ITS ---
Test Reason : SOB Blood Pressure : / mmHG Vent. Rate : 110 BPM Atrial Rate : 108 BPM P-R Int : 000 ms QRS Dur : 116 ms QT Int : 348 ms P-R-T Axes : 000 060 -68 degrees QTc Int : 470 ms Atrial fibrillation Incomplete left bundle branch block Nonspecific T wave abnormality Abnormal ECG Confirmed by ANTHONY BACK, JACKIE ([id number]), newspaper photo editor JERRY GONZALEZ ([id number]) on 02/27/2019 11:04:47 AM Referred By: LENNY Confirmed By:JACKIE CRUZ MD
--- NOTE | 2019-02-25 18:45 | RAD_ITS ---
STUDY: X-RAY CHEST REASON FOR EXAM: Male, 69 years old. Shortness of breath TECHNIQUE: Single AP portable view of the chest. COMPARISON: Prior chest exam of December 18, 2018, December 14, 2018, December 12, 2018 and June 20, 2017 FINDINGS: Multilumen central venous catheter ends in the distal superior vena cava. Lung pavon are generally hyperexpanded with mild perihilar edema. Negative for substantial pleural effusion. Borderline cardiomegaly status post prior midline sternotomy. Normal mediastinum and ursula. Mild pulmonary venous congestion. There is atherosclerotic calcification of the aortic arch with tortuosity. There are diffuse degenerative changes of the visualized thoracic spine. Normal visualized ribs, clavicles, and shoulders. There is no demonstrated abnormality of the visualized soft tissue structures of the upper abdomen. RAD/Chest 1 View (Portable) IMPRESSION: Hyperexpansion, borderline cardiomegaly, pulmonary venous congestion and mild pulmonary edema consistent with mild congestive heart failure. Status post prior midline sternotomy. Multilumen left central venous catheter ends in the distal superior vena cava. Electronically Signed: Sharifa Holcomb MD at 19:09 EST , Service support ,
[2019-02-25 19:01] LABS: Bacteria 0 SEEN /hpf (None Seen); Mucous, Urine 0 SEEN /hpf (<or=2+); Red Blood Cells-Urine 0 SEEN /hpf (0-5); Squamous Epithelial Cells - UA 0 SEEN /hpf (0-5); White Blood Cells 0 SEEN /hpf (0-5)
[2019-02-25 19:07] LABS: Absolute Lymphocyte Count 1.09 X10^3/uL (0.83-4.51); Basophil# 0.02 X10^3/uL; Basophil% 0.3 % (0-1); Eosinophil# 0.14 X10^3/uL; Eosinophils% 1.8 % (0-5); Hematocrit 29.5 % (40-54); Hemoglobin 9.3 g/dL (13.0-16.5); Lymphocyte # 1.09 X10^3/ul (4.0); Lymphocyte % 13.9 % (19-41); Mean Corp Hgb Conc 31.5 g/dL (32-36); Mean Corpuscular Hgb 29.8 pg (27.0-32.0); Mean Corpuscular Volume 94.6 fL (80-94); Mean Platelet Vol. 9.8 fl (6.2-12.0); Monocyte# 0.45 X10^3/uL; Monocyte% 5.7 % (0-10); NRBC Flagged by Analyzer 0 % (0-5); Neutrophil # 5.98 X10^3/uL (2.7-7.7); Neutrophil % 76.4 % (47-70); Platelet Count 226 K/mm3 (150-450); RBC Distribution Width CV 15.8 % (11.6-14.6); RBC Distribution Width SD 54.6 fl (35.1-43.9); Red Blood Count 3.12 M/mm3 (4.6-6.2); White Blood Count 7.8 K/mm3 (4.4-11.0)
[2019-02-25 19:12] LABS: International Normalized Ratio 1.3; Prothrombin Time (Protime)PT. 15.6 SECONDS (11.7-14.9)
[2019-02-25 19:13] LABS: Partial Thromboplast Time 33.3 Seconds (24.1-36.2)
[2019-02-25 19:16] LABS: Color, Urine Yellow (Yellow); Glucose, Dipstick 250 mg/dl (Normal); Ketone-Dipstick Negative (Negative); Leukocyte Esterase-Dipstick Negative /ul (Negative); Nitrite-Dipstick Negative (Negative); Occult Blood-Urine Negative /ul (Negative); Protein-Dipstick 100 mg/dl (Negative); Urine Bilirubin Dipstick Negative (Negative); Urine Clarity Clear (Clear); Urine Urobilinogen Normal (Normal)
[2019-02-25 19:20] LABS: ALB/GLOB Ratio 0.8 RATIO (0.9-2.4); AST(SGOT) 19 U/L (15-37); Alanine Aminotransfer ALT/SGPT 29 U/L (16-61); Albumin, Serum 3.3 g/dL (3.2-5.0); Alkaline Phosphatase 68 U/L (45-117); Anion Gap 10 (5-15); BUN 60 mg/dL (7-18); BUN/Creat Ratio 18.5 RATIO (10-20); Calcium,Total 8.5 mg/dL (8.5-10.1); Chloride 111 mmol/L (98-107); Creatinine, Serum 3.24 mg/dL (0.70-1.30); EST Glomerular Filtration Rate 20 mL/min (>60); Est Glom Filt Rate - Afr Amer 25 mL/min (>60); Estimated Creatinine Clearance 21.82 ml/min; Globulin 4.3 g/dL (2.2-4.2); Glucose 270 mg/dL (74-106); Potassium 4.7 mmol/L (3.5-5.1); Protein, Total 7.6 g/dL (6.4-8.2); Sodium Level 143 mmol/L (136-145)
[2019-02-25 19:43] LABS: Lactic Acid 2.4 mmol/L (0.4-2.0)
[2019-02-25 19:46] LABS: BNP,B-Type NATRIURETIC PEPTIDE 755.5 pg/mL (0-100)
--- NOTE | 2019-02-25 20:08 | PCM.HP.STD ---
Problem List (1) Nephrotic range proteinuria Status: Chronic (2) Chronic renal disease, stage 5, glomerular filtration rate (GFR) less than or equal to 15 mL/min/1.73 square meter Status: Inactive (3) CHF exacerbation Status: Acute Qualifiers: Heart failure type: unspecified Qualified Code(s): I50.9 - Heart failure, unspecified (4) Chest pain Status: Acute Qualifiers: Chest pain type: unspecified Qualified Code(s): R07.9 - Chest pain, unspecified (5) EDGARDO (acute kidney injury) Status: Inactive (6) CKD (chronic kidney disease), stage III Status: Inactive (7) Pure hypercholesterolemia Status: Chronic (8) Type 2 diabetes mellitus Status: Chronic Qualifiers: Diabetes mellitus ferry terminal agent insulin use: with penitentiary use Diabetes mellitus complication status: with other specified complication Qualified Code(s): E11.69 - Type 2 diabetes mellitus with other specified complication; Z79.4 - residential (current) use of insulin (9) Presence of stent in coronary artery Status: Chronic Comment: 07/18/10, PTCA/stent to mid to distal LCx artery; 08/17/10 PTCA/stent to proximal to mid RCA; PTCA of distal RCA with DEX September 2010; PTCA with EULALIO to mid distal AV groove left CFX 08/13 (10) Essential hypertension Status: Chronic (11) Nonrheumatic aortic (valve) stenosis Status: Chronic (12) Nonspecific abnormal unspecified cardiovascular function study Status: Chronic (13) Diastolic dysfunction Status: Chronic (14) Other penitentiary (current) drug therapy Status: Chronic (15) Atherosclerotic heart disease of [place] coronary artery without angina pectoris Status: Chronic Qualifiers: [place] vs. transplanted heart: [place] heart Qualified Code(s): I25.10 - Atherosclerotic heart disease of [place] coronary artery without angina pectoris Comment: S/P multivessel PTCA/stent and subsequent CABG with SVG to LCx, RCA and diagonal branch with subsequent SVG graft closure to the LCx and diagonal branch; (16) Choledocholithiasis with acute cholecystitis Status: Inactive (17) S/P CABG x 3 Status: Chronic Comment: CABG-SVG to diagonal, SVG to obtuse marginal & SVG to PDA 07/12; (18) GERD (gastroesophageal reflux disease) Status: Chronic Qualifiers: Esophagitis presence: esophagitis presence not specified Qualified Code(s): K21.9 - Gastro-esophageal reflux disease without esophagitis (19) Anxiety Status: Chronic (20) Chronic kidney disease (CKD) Status: Chronic Qualifiers: Chronic kidney disease stage: stage 4 (severe) Qualified Code(s): N18.4 - Chronic kidney disease, stage 4 (severe) History of Present Illness Date of Admission: 02/25/19 Chief Complaint: shortness of breath The patient is a 69 year old M with a significant history of hypertension; COPD; CAD status post CABG and stent; diabetes mellitus; sleep apnea on home CPAP who presented to emergency department with a 3-week history of progressively worsening shortness of breath. Patient has mild shortness of breath at rest which markedly worsens with minimal activity. He reports multiple episodes of passing out with the last episode about 2 nights prior to presentation. Patient was discharged from our hospital on 12/24/2018. On that admission he was treated for community-acquired pneumonia and acute decompensated heart failure. He required intubation after failing BiPAP therapy. He was treated with IV Lasix. However his IV Lasix had to be held because of worsening renal insufficiency. Patient ended up on dialysis. His dialysis was stopped about 2 weeks ago. Past Medical History Past Medical History (Chronic Problems): Chronic Problems (Last Reviewed 02/25/19 @ 21:19 by Manuel Roland MD) Nephrotic range proteinuria (Chronic) Chronic kidney disease (CKD) (Chronic) Pure hypercholesterolemia (Chronic) Type 2 diabetes mellitus (Chronic) Presence of stent in coronary artery (Chronic ~08/25/14) 07/18/10, PTCA/stent to mid to distal LCx artery; 08/17/10 PTCA/stent to proximal to mid RCA; PTCA of distal RCA with DEX September 2010; PTCA with EULALIO to mid distal AV groove left CFX 08/13 Essential hypertension (Chronic) Nonrheumatic aortic (valve) stenosis (Chronic) Nonspecific abnormal unspecified cardiovascular function study (Chronic) Diastolic dysfunction (Chronic) Other penitentiary (current) drug therapy (Chronic) Atherosclerotic heart disease of [place] coronary artery without angina pectoris (Chronic) S/P multivessel PTCA/stent and subsequent CABG with SVG to LCx, RCA and diagonal branch with subsequent SVG graft closure to the LCx and diagonal branch; S/P CABG x 3 (Chronic ~07/21/12) CABG-SVG to diagonal, SVG to obtuse marginal & SVG to PDA 07/12; GERD (gastroesophageal reflux disease) (Chronic) Anxiety (Chronic) Medical History: Medical History (Last Reviewed 02/25/19 @ 21:19 by Manuel Roland MD) Pure hypercholesterolemia (Chronic) E78.00 Type 2 diabetes mellitus (Chronic) E11.9 Presence of stent in coronary artery (Chronic) Onset Date: ~08/25/14 Z95.5 07/18/10, PTCA/stent to mid to distal LCx artery; 08/17/10 PTCA/stent to proximal to mid RCA; PTCA of distal RCA with DEX September 2010; PTCA with EULALIO to mid distal AV groove left CFX 08/13 Essential hypertension (Chronic) I10 Nonrheumatic aortic (valve) stenosis (Chronic) I35.0 Diastolic dysfunction (Chronic) I51.9 Atherosclerotic heart disease of [place] coronary artery without angina pectoris (Chronic) I25.10 S/P multivessel PTCA/stent and subsequent CABG with SVG to LCx, RCA and diagonal branch with subsequent SVG graft closure to the LCx and diagonal branch; Fatigue R53.83 Precordial chest pain R07.2 Shortness of breath R06.02 Sleep apnea G47.30 COPD (chronic obstructive pulmonary disease) J44.9 Diverticulitis K57.92 Aortic valve disease (Inactive) I35.9 Coronary atherosclerosis of [place] coronary artery (Inactive) I25.10 Diabetes mellitus (Inactive) E11.9 HTN (hypertension) (Inactive) I10 Allergies carvedilol [From Coreg] Allergy (Severe, Verified 02/25/19 18:31) vomiting sertraline HCl [From Zoloft] Allergy (Verified 02/25/19 18:31) Unknown valsartan [From Diovan] Adverse Reaction (Severe, Verified 02/25/19 18:31) Possible angioedema, throat swelling bupropion HCl [From Wellbutrin] Adverse Reaction (Verified 02/25/19 18:31) gets mean citalopram Adverse Reaction (Verified 02/25/19 18:31) Other gabapentin Adverse Reaction (Verified 02/25/19 18:31) Other Home Medications: Ambulatory Orders Medication Instructions Recorded Nitroglycerin (INPATIENT USE) 0.4 mg SUBLINGUAL Q5M PRN 10/27/13 [Nitrostat] coenzyme Q10 400 mg capsule 400 mg PO BID #90 cap 09/13/17 berberine-herbal comb no.18 capsule 1 cap PO BID cap 02/24/18 fenofibrate nanocrystallized 160 160 mg PO DAILY #30 tab 02/24/18 mg tablet Insulin Glargine [Lantus SoloStar 50 units SUBCUT BID #5 pen 12/23/18 Pen] furosemide 40 mg tablet 40 mg PO BID tab 01/06/19 metoprolol tartrate 50 mg tablet 50 mg PO BID #180 tab 02/17/19 Allopurinol 100 mg PO DAILY 02/25/19 Amlodipine Besylate 5 mg PO BID 02/25/19 Aspirin E.C. [Ecotrin] 81 mg PO DAILY@0800 02/25/19 Astaxanthin 4 mg PO DAILY 02/25/19 Fluoxetine HCl 40 mg PO DAILY 02/25/19 Insulin Aspart [Novolog Flexpen 36 units SUBCUT TIDCM 02/25/19 ([facility])] Isosorbide Mononitrate [Isosorbide 30 mg PO DAILY 02/25/19 Mononitrate ER] Surgical History: Surgical History (Last Reviewed 02/25/19 @ 21:10 by Manuel Roland MD) S/P CABG x 3 (Chronic) Onset Date: ~07/21/12 Z95.1 CABG-SVG to diagonal, SVG to obtuse marginal & SVG to PDA 07/12; Presence of coronary angioplasty implant and graft Z95.5 07/18/10, PTCA/stent to mid to distal LCx artery; 08/17/10 PTCA/stent to proximal to mid RCA; PTCA of distal RCA with DEX September 2010; PTCA with EULALIO to mid distal AV groove left CFX 08/13 History of bilateral knee replacement Z96.653 History of carpal tunnel repair Z98.890 History of cholecystectomy Z90.49 History of partial colectomy Z90.49 History of repair of rotator cuff Z98.890 S/P PTCA (percutaneous transluminal coronary angioplasty) (Inactive) Z98.61 07/18/10, PTCA/stent to mid to distal LCx artery; 08/17/10 PTCA/stent to proximal to mid RCA; PTCA of distal RCA with DEX September 2010; PTCA with EULALIO to mid distal AV groove left CFX 08/13 Surgical History: angioplasty, arthroscopy, knee, coronary bypass surgery, - - Patient status post CABG x3, serial PCI, bilateral total knee replacement, rotator cuff repair, partial colectomy, cholecystectomy, carpal tunnel surgery. Psychiatric History: No pertinent psych hx Lives: Spouse/ Significant Other Smoking Status: Former smoker Tobacco Use: Cigarettes - *Family History Maternal Family History: Family History (Last Reviewed 01/06/19 @ 15:55 by Pili May) Father CAD (coronary artery disease) Afib Aortic valve replaced Mother Cancer Son Lupus History Items: Cancer Paternal Family History: Family History (Last Reviewed 01/06/19 @ 15:55 by Pili May) Father CAD (coronary artery disease) Afib Aortic valve replaced Mother Cancer Son Lupus History Items: High Cholesterol, Heart Disease - Atrial fibrillation; valvular heart disease status post aVR; , Hypertension Review of Systems Constitutional: Denies: Chills, Fever, Weight Change HEENT: Denies: Head Aches, Sinus Congestion, Sinus Drainage Cardiovascular: Reports: Chest Pain - intermittent., Orthopnea - One pillow orthopnea (unchanged). Of note uses cpap., Paroxysmal Noc. Dyspnea, Syncope. Denies: Palpitations Respiratory: Reports: Shortness of Breath. Denies: Cough, Sputum production Gastrointestinal: Denies: Abdominal Pain, Nausea, Vomiting Genitourinary: Denies: Dysuria Musculoskeletal: Denies: Joint Pain, Joint Tenderness Skin: Denies: Rash, Wounds Neurological: Denies: Numbness, Tingling, Focal weakness Psychiatric: Denies: Anxiety, Depression, Homicidal Ideations, Suicidal Ideations Hematologic/ Lymphatic: Denies: Easy Bruising, Easy Bleeding VTE Information - Inpt Only VTE Present on Admission: No VTE Mechan Device Prophylaxis: None VTE Pharm Prophylaxis ordered?: Yes - Physical Exam Vitals/I&O's: Vital Signs Temp Pulse Resp BP Pulse Ox 97.4 F L 110 H 28 H 133/80 H 96 02/25/19 19:06 02/25/19 19:06 02/25/19 19:06 02/25/19 19:06 02/25/19 19:06 Oxygen Flow Rate (L/min) 2 Oxygen Delivery Method Nasal Cannula Weight: 108.862 kg Body Mass Index (BMI) 35.4 Finger Stick Blood Glucose 269 General: Alert, Oriented x3, Cooperative HEENT: Atraumatic, PERRLA, EOMI, Normocephalic Neck: Supple, No JVD, Negative Carotid Bruits Lungs: Clear to auscultation, Normal air movement, Tachypneic, - - Vascath on chest. Cardiovascular: Normal S1, Normal S2, Murmur, Tachycardic Abdomen: Bowel Sounds Present, Soft, Non Tender Extremities: No edema, Capillary Refill Less than 3 Seconds Skin: No rashes, No breakdown Musculoskeletal: No Tenderness to Palpation of Joints or Extremities, - - Deformity of bilateral feet. Neurological: Cranial nerves II-XII grossly intact Psych/Mental Status: Normal Affect, Appropriate Laboratory Results 02/25/19 18:48: WBC 7.8, RBC 3.12 L, Hgb 9.3 L, Hct 29.5 L, MCV 94.6 H, MCH 29.8, MCHC 31.5 L, RDW Std Deviation 54.6 H, RDW Coeff of Judi 15.8 H, Plt Count 226, MPV 9.8, Immature Gran % (Auto) 1.900 H, Neut % (Auto) 76.4 H, Lymph % (Auto) 13.9 L, [place] % (Auto) 5.7, Eos % (Auto) 1.8, Baso % (Auto) 0.3, Absolute Neuts (auto) 6.0, Absolute Lymphs (auto) 1.09, Nucleated RBC % 0 02/25/19 18:48: PT 15.6 H, INR 1.3, APTT 33.3 02/25/19 18:48: Sodium 143, Potassium 4.7, Chloride 111 H, Carbon Dioxide 22.0, Anion Gap 10, BUN 60 H, Creatinine 3.24 H, Estim Creat Clear Calc 21.82, Est GFR (MDRD) Af Amer 25 L, Est GFR (MDRD) Non-Af 20 L, BUN/Creatinine Ratio 18.5, Glucose 270 H, Calcium 8.5, Total Bilirubin 0.40, AST 19, ALT 29, Alkaline Phosphatase 68, Troponin I < 0.015, Total Protein 7.6, Albumin 3.3, Globulin 4.3 H, Albumin/Globulin Ratio 0.8 L 02/25/19 18:48: Lactic Acid 2.4 H 02/25/19 18:48: B-Natriuretic Peptide 755.5 H 02/25/19 18:55: Urine Color Yellow, Urine Clarity Clear, Urine pH 6.0, Ur Specific [place] 1.010, Urine Protein 100 H, Urine Glucose (UA) 250 H, Urine Ketones Negative, Urine Occult Blood Negative, Urine Nitrite Negative, Urine Bilirubin Negative, Urine Urobilinogen Normal, Ur Leukocyte Esterase Negative, Urine RBC 0 SEEN, Urine WBC 0 SEEN, Ur Squamous Epith Cells 0 SEEN, Urine Bacteria 0 SEEN, Urine Mucus 0 SEEN Assessment/Plan All Active Problems (Last Reviewed 02/25/19 @ 21:19 by Manuel Roland MD) CHF exacerbation (Acute) Chest pain (Acute) The patient is a 69 year old M with a significant history of hypertension; COPD; CAD status post CABG and stent; diabetes mellitus; had a sleep apnea on home CPAP who presented to emergency department progressively worsening shortness of breath; found to have elevated BNP and radiographic findings of pulmonary congestion consistent with acute exacerbation of his heart failure with preserved ejection fraction.. Acute Exacerbation of heart failure with preserved ejection fraction Patient had echocardiogram on 12/11/2018. His ejection fraction was 65%. Diastolic function was indeterminate. Patient had moderate to severe aortic stenosis. Mild aortic valve insufficiency. Place on monitored bed on pcu Weight on admission to the floor; and then daily Strict I&O's CXR was interpreted by radiology as hyperexpanded expansion, borderline cardiomegaly, pulmonary venous congestion and mild pulmonary edema consistent with mild congestive heart failure. Chest x-ray was independently reviewed. I agree with radiologist interpretation. BNP was 755.5 Emergency department labs reviewed showed a potassium of 4.7. Lactic acid of 2.4. Creatinine of 3.24. Received Lasix 40 mg IV at the emergency department of note patient to 40 mg of Lasix p.o. twice daily. While inpatient we will start patient on Lasix 40 mg IV twice daily. If his creatinine begins to increase consider discussed with nephrology. In the past patient followed up with Dr. Rodrigez. Monitor electrolytes and renal function Trend blood pressure Lactic acidosis Likely due to acute COPD exacerbation. Trend Moderate to severe aortic stenosis In the past patient has seen Dr. Green, cardiology. Patient reports that he was told that he may need an intervention for his aortic stenosis. On discharge recommend patient follows up with his aortic stenosis. Diabetes mellitus On presentation his blood glucose was not within goal. However in the hospital setting will de-escalate amount of basal and prandial insulin. Will add correction scale insulin. Hypertension On presentation his blood pressure was not within goal Amlodipine and Imdur continued. Metoprolol continued. Trend blood pressure and adjust blood pressure medications. CKD Stage 4 Creatinine is improving. Recently off diuresis. Consider discussing with nephrology if his creatinine begins to worsen. Low phosphorus diet HLD Patient is on Fenofibrate. Of note he has severe renal disease. Consider further discussion with patient on Fenofibrate. DVT Prophylaxis Subcutaneous Lovenox Code Visit Inpatient E&M: 25415 Init Hosp L3
--- NOTE | 2019-02-25 20:26 | ED.VISSUMM ---
- ER Visit Summary Date of Service: 02/25/19 Chief Complaint: Shortness of breath History of Present Illness: The patient is a 69 M who presents with shortness of breath. He states is been ongoing for about a week. Is worse with exertion and better with rest. He has a mild cough. He had some intermittent chest pains but nothing consistent. The patient has a history of CHF with an EF of 65%. He was admitted back in November when he had similar symptoms. He was eventually placed on dialysis because of a rising creatinine. He continued his dialysis until 1 week ago when they thought he could come off of his dialysis because of his improving creatinine. The last creatinine we have in the system is 2.97. He does admit to some urinary frequency. Physical Examination: Vital signs reviewed. Patient does appear to be short of breath. HEENT exam unremarkable. Heart is regular rate and rhythm without murmurs. Lungs have crackles in the bases bilaterally. Abdomen soft nontender. Extremities have trace edema in the lower legs bilaterally. Skin has no rashes. Neurologic exam normal Test Results: EKG was sinus rhythm with a rate of 110. Nonspecific ST and T wave changes seen. Chest x-ray shows CHF. Hemoglobin 9.3. Creatinine 3.24. Troponin normal. BNP 755 Emergency Department Course and Treatment: The patient was given a dose of Lasix in the emergency department. Due to his CHF on the chest x-ray feel he needs to be admitted so his creatinine can be monitored. Discussed this with the hospitalist and the patient will be admitted. Treatment Plan: [] Disposition: Admit Impression: CHF exacerbation, aortic stenosis This note was generated with [employer] dictation software. It may contain incorrect words, spelling, and punctuation that were not noted in review of the chart prior to signing ED Disposition - Plan for ED Patient: Referrals: Davon Lemus MD [Primary Care Provider] -
[2019-02-25] MEDS: Furosemide 40 MG/4 ML Vial IV (20:46)
[2019-02-25 22:30] LABS: Bedside Glucose 205 mg/dL (70-110)
[2019-02-25] MEDS: Insulin Lispro 100 UNIT/ML INSULN.PEN SC (22:53)
[2019-02-25 22:55] LABS: Reflex Lactate? Y
[2019-02-25 23:36] LABS: Lactic Acid 1.2 mmol/L (0.4-2.0)
[2019-02-26] VITALS (15 sets, daily range): BP systolic 116–151; BP diastolic 63–88; PULSE 59–82; RESP 16–20; TEMP 36.3–37.1; O2SAT 93–98
[2019-02-26 06:41] LABS: Anion Gap 9 (5-15); BUN 58 mg/dL (7-18); BUN/Creat Ratio 19.3 RATIO (10-20); Calcium,Total 8.6 mg/dL (8.5-10.1); Chloride 114 mmol/L (98-107); Creatinine, Serum 3.01 mg/dL (0.70-1.30); EST Glomerular Filtration Rate 22 mL/min (>60); Est Glom Filt Rate - Afr Amer 27 mL/min (>60); Estimated Creatinine Clearance 23.49 ml/min; Glucose 142 mg/dL (74-106); Potassium 4.4 mmol/L (3.5-5.1); Sodium Level 144 mmol/L (136-145)
[2019-02-26 07:55] LABS: Bedside Glucose 109 mg/dL (70-110)
[2019-02-26] MEDS: Insulin Lispro 100 UNIT/ML INSULN.PEN 26 UNIT SC ×3 (08:06→16:53)
--- NOTE | 2019-02-26 08:41 | PN_ITS ---
Reason for Visit: Acute congestive heart failure Subjective: Patient is a 69-year-old gentleman with multiple comorbidities including coronary artery disease with previous CABG COPD obstructive sleep apnea who presented with progressive shortness of breath. Patient was previously on dialysis and had recently been taking of. Imaging studies obtained on admission demonstrated pulmonary venous congestion and pulmonary edema consistent with acute congestive heart failure Objective: GENERAL: cooperative HEENT: Atraumatic; EYES; Anicteric, Normal Conjunctiva NECK; supple, normal thyroid, RESPIRATORY: Diminished to auscultation CARDIOVASCULAR: Regular S1 S2, systolic murmur GI: soft, normoactive bowel sounds, : No Renal angle tenderness; EXTREMITIES: No edema, no clubbing, MUSCULOSKELETAL: no muscle waisting NEURO: Awake; no lateralizing signs. SKIN: No Rash PSYCH; Flat affect Vitals/I&O's: Vital Signs Temp Pulse Resp BP Pulse Ox 98.7 F 72 19 H 146/72 H 96 02/26/19 03:00 02/26/19 07:00 02/26/19 03:30 02/26/19 03:00 02/26/19 07:35 Oxygen Flow Rate (L/min) 2 Oxygen Delivery Method Nasal Cannula Weight: 112.9 kg Body Mass Index (BMI) 37.1 Finger Stick Blood Glucose 269 Intake and Output for Last 24 Hours 02/24/19 02/25/19 02/26/19 23:59 23:59 23:59 Intake Total 400 / 400 200 / 200 Output Total 1275 / 1275 825 / 825 Balance -875 / -875 -625 / -625 Laboratory Results 02/25/19 18:48: WBC 7.8, RBC 3.12 L, Hgb 9.3 L, Hct 29.5 L, MCV 94.6 H, MCH 29.8, MCHC 31.5 L, RDW Std Deviation 54.6 H, RDW Coeff of Judi 15.8 H, Plt Count 226, MPV 9.8, Immature Gran % (Auto) 1.900 H, Neut % (Auto) 76.4 H, Lymph % (Auto) 13.9 L, Hand % (Auto) 5.7, Eos % (Auto) 1.8, Baso % (Auto) 0.3, Absolute Neuts (auto) 6.0, Absolute Lymphs (auto) 1.09, Nucleated RBC % 0 02/25/19 18:48: PT 15.6 H, INR 1.3, APTT 33.3 02/25/19 18:48: Sodium 143, Potassium 4.7, Chloride 111 H, Carbon Dioxide 22.0, Anion Gap 10, BUN 60 H, Creatinine 3.24 H, Estim Creat Clear Calc 21.82, Est GFR (MDRD) Af Amer 25 L, Est GFR (MDRD) Non-Af 20 L, BUN/Creatinine Ratio 18.5, Glucose 270 H, Calcium 8.5, Total Bilirubin 0.40, AST 19, ALT 29, Alkaline Phosphatase 68, Troponin I < 0.015, Total Protein 7.6, Albumin 3.3, Globulin 4.3 H, Albumin/Globulin Ratio 0.8 L 02/25/19 18:48: Lactic Acid 2.4 H 02/25/19 18:48: B-Natriuretic Peptide 755.5 H 02/25/19 18:55: Urine Color Yellow, Urine Clarity Clear, Urine pH 6.0, Ur Specific [place] 1.010, Urine Protein 100 H, Urine Glucose (UA) 250 H, Urine Ketones Negative, Urine Occult Blood Negative, Urine Nitrite Negative, Urine Bilirubin Negative, Urine Urobilinogen Normal, Ur Leukocyte Esterase Negative, Urine RBC 0 SEEN, Urine WBC 0 SEEN, Ur Squamous Epith Cells 0 SEEN, Urine Bacteria 0 SEEN, Urine Mucus 0 SEEN 02/25/19 22:24: POC Glucose 205 H 02/25/19 23:05: Lactic Acid 1.2 02/26/19 05:36: Sodium 144, Potassium 4.4, Chloride 114 H, Carbon Dioxide 21.0, Anion Gap 9, BUN 58 H, Creatinine 3.01 H, Estim Creat Clear Calc 23.49, Est GFR (MDRD) Af Amer 27 L, Est GFR (MDRD) Non-Af 22 L, BUN/Creatinine Ratio 19.3, Glucose 142 H, Calcium 8.6 02/26/19 07:42: POC Glucose 109 Current Medications Acetaminophen (Tylenol) 650 mg PO Q6H PRN PRN PRN Reason: Pain Score 1-10/Temp > 100.7 F [facility] Amlodipine Besylate (Norvasc) 5 mg PO BID [facility] Last Admin: 02/25/19 22:26 Dose: Not Given Documented by: Aspirin (Ecotrin) 81 mg PO DAILY@0800 [facility] Dextrose (D50w Syringe) 0 gm IV X1 PRN; Protocol PRN Reason: Hypoglycemia Enoxaparin Sodium (Lovenox) 30 mg SC DAILY [facility] Fenofibrate (Tricor) 145 mg PO DAILY [facility] Fluoxetine HCl (Prozac) 40 mg PO DAILY [facility] Furosemide (Lasix) 40 mg IV BID@1000,1800 [facility] Glucagon () 1 mg IM .X1 PRN PRN Reason: Hypoglycemia Sodium Chloride () 250 mls @ 15 mls/hr IV .[id number] PRN PRN Reason: Saline Flush Insulin Glargine (Lantus (Bk)) 45 units SC BID [facility] Last Admin: 02/26/19 08:07 Dose: 45 u Documented by: Insulin Human Lispro (Humalog Kwikpen (Bk)) 26 unit SC TIDAC [facility] Last Admin: 02/26/19 08:06 Dose: 26 u Documented by: Insulin Human Lispro (Humalog Kwikpen (Bk)) 0 unit SC ACHS [facility]; Protocol Last Admin: 02/26/19 08:07 Dose: Not Given Documented by: Isosorbide Mononitrate (Imdur) 30 mg PO DAILY [facility] Metoprolol Tartrate (Lopressor (Beta Ayde)) 50 mg PO BID [facility] Last Admin: 02/25/19 22:26 Dose: Not Given Documented by: Ondansetron HCl (Zofran) 4 mg IV Q8H PRN PRN PRN Reason: NAUSEA/VOMITING Sodium Chloride () 10 - 40 ml IV UD PRN PRN Reason: SALINE FLUSH STROKE Vital Signs/Narrative: Vital Signs Pulse Pulse Ox 02/26/19 07:35 96 02/26/19 07:00 72 Medical Necessity - Tobacco Use Smoking Status: Former smoker Tobacco Use: Cigarettes Assessment/Plan All Active Problems (Last Reviewed 02/25/19 @ 21:19 by Manuel Roland MD) CHF exacerbation (Acute) Chest pain (Acute) Patient is a 69-year-old gentleman with multiple comorbidities including coronary artery disease with previous CABG COPD obstructive sleep apnea who presented with progressive shortness of breath. Patient was previously on dialysis and had recently been taking of. Imaging studies obtained on admission demonstrated pulmonary venous congestion and pulmonary edema consistent with acute congestive heart failure 1. Acute congestive heart failure with preserved ejection fraction ~echo obtained from 12/11/2018 demonstrated EF of 65%. Patient has been admitted to a monitored bed. Placed on fluid restriction initially thousand 500 patient however requested this to be increased to 2000. Patient also on Lasix did increase the dose from 40 twice daily to 60 Q8. Patient was also placed on strict input and output, daily weights and supplemental oxygen titrated to keep saturation greater than 90 2. Lactic acidosis ~Sepsis ruled out this was attributed to increased work of breathing from his underlying COPD 3. COPD with mild exacerbation ~treated with aerosol treatment and supplemental oxygen 4. Coronary artery disease ?With previous CABG and subsequent stent placement 5. Hypertension ~ blood pressure controlled, home medications continued with dose adjustment as needed 6. Dyslipidemia ~patient is on fenofibrate held in view of patient impaired kidney function 7. Diabetes mellitus type II ~Controlled Placed on long acting insulin, Accu-Cheks a.c. and at bedtime and covered with sliding scale insulin 8. Obstructive sleep apnea ?Patient is a CPAP at home 9. 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 Moderate to severe aortic stenosis ~patient to follow-up with cardiology as outpatient for subsequent management 11. DVT prophylaxis ~ on enoxaparin 12. Obesity with BMI of 36.8 ?Weight loss and lifestyle modification advised Advance planning; did discuss with the patient and regarding advanced directives as well as CODE STATUS. Did explain the various scenarios involved ( FULL CODE, DNR CCA, DNR CCA with no intubation, and DNR CC and what each meant) patient wishes to remain full code. Time spent on discussion 18 minutes. Active Medications Acetaminophen (Tylenol) 650 mg PO Q6H PRN PRN PRN Reason: Pain Score 1-10/Temp > 100.7 F Allopurinol (Zyloprim) 100 mg PO DAILYCM [facility] Last Admin: 02/26/19 09:01 Dose: 100 mg Documented by: Amlodipine Besylate (Norvasc) 5 mg PO BID [facility] Last Admin: 02/26/19 09: Dose: 5 mg Documented by: Aspirin (Ecotrin) 81 mg PO DAILY@0800 [facility] Last Admin: 02/26/19 09:01 Dose: 81 mg Documented by: Dextrose (D50w Syringe) 0 gm IV X1 PRN; Protocol PRN Reason: Hypoglycemia Enoxaparin Sodium (Lovenox) 30 mg SC DAILY [facility] Last Admin: 02/26/19 09:00 Dose: 30 mg Documented by: Fenofibrate (Tricor) 145 mg PO DAILY [facility] Last Admin: 02/26/19 09:00 Dose: 145 mg Documented by: Fluoxetine HCl (Prozac) 40 mg PO DAILY [facility] Last Admin: 02/26/19 09:00 Dose: 40 mg Documented by: Furosemide (Lasix) 60 mg IV Q8 [facility] Glucagon () 1 mg IM .X1 PRN PRN Reason: Hypoglycemia Sodium Chloride () 250 mls @ 15 mls/hr IV .[id number] PRN PRN Reason: Saline Flush Insulin Glargine (Lantus (Bkc)) 45 units SC BID [facility] Last Admin: 02/26/19 08:07 Dose: 45 u Documented by: Insulin Human Lispro (Humalog Kwikpen (Bkc)) 26 unit SC TIDAC [facility] Last Admin: 02/26/19 08:06 Dose: 26 u Documented by: Insulin Human Lispro (Humalog Kwikpen (Bkc)) 0 unit SC ACHS [facility]; Protocol Last Admin: 02/26/19 08:07 Dose: Not Given Documented by: Isosorbide Mononitrate (Imdur) 30 mg PO DAILY [facility] Last Admin: 02/26/19 09:01 Dose: 30 mg Documented by: Metoprolol Tartrate (Lopressor (Beta Ayde)) 50 mg PO BID [facility] Last Admin: 02/26/19 09:00 Dose: 50 mg Documented by: Ondansetron HCl (Zofran) 4 mg IV Q8H PRN PRN PRN Reason: NAUSEA/VOMITING Sodium Chloride () 10 - 40 ml IV UD PRN PRN Reason: SALINE FLUSH Last Admin: 02/26/19 09:00 Dose: 10 ml Documented by: Clinical Impression(s) from Imaging Studies Chest X-Ray 02/25/19 18:45 IMPRESSION: Hyperexpansion, borderline cardiomegaly, pulmonary venous congestion and mild pulmonary edema consistent with mild congestive heart failure. Status post prior midline sternotomy. Multilumen left central venous catheter ends in the distal superior vena cava. Electronically Signed: Sharifa Holcomb MD at 19:09 EST , Service support , Code Visit Inpatient E&M: 12154 Subs Hosp L3 Procedures: 12029 Advncd Care Plan 30 Min
[2019-02-26] MEDS: Metoprolol Tartrate 50 MG Tablet PO ×2 (09:00→21:36)
[2019-02-26] MEDS: Fenofibrate 145 MG Tablet PO (09:00)
[2019-02-26] MEDS: FLUoxetine 20 MG Capsule 40 MG PO (09:00)
[2019-02-26] MEDS: 0.9% Saline Lock 10 ML Syringe IV ×2 (09:00→15:02)
[2019-02-26] MEDS: Furosemide 40 MG/4 ML Vial IV (09:00)
[2019-02-26] MEDS: Enoxaparin 30 MG/0.3 ML Syringe SC (09:00)
[2019-02-26] MEDS: amLODIPine 5 MG Tablet PO ×2 (09:01→21:37)
[2019-02-26] MEDS: Allopurinol 100 MG Tablet PO (09:01)
[2019-02-26] MEDS: Isosorbide Mononitrate 30 MG Tablet PO (09:01)
[2019-02-26] MEDS: Aspirin E.C. 81 MG Tablet PO (09:01)
[2019-02-26 11:15] LABS: Bedside Glucose 127 mg/dL (70-110)
[2019-02-26] MEDS: Furosemide 100 MG/10 ML Vial 60 MG IV ×2 (15:01→21:36)
--- NOTE | 2019-02-26 15:40 | CON.PCM_ITS ---
Problem List (1) Chronic renal disease, stage 5, glomerular filtration rate (GFR) less than or equal to 15 mL/min/1.73 square meter Status: Inactive Consultation - Renal 02/26/19 PCP/ Referring MD: Requesting physician: Dr Deutsch Primary care physician: Davon Lemus MD Reason for Consultation:: CKD CHF - History of Present Illness History of Present Illness: The patient is a 69 year old M well-known to us. 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 Nephrotic range proteinuria. He was recently admitted at [facility] with congestive heart failure. At that time he was started on dialysis mostly for fluid management. Has generally done well up until 2 weeks ago. He started having increased urine output, syncope episodes after dialysis. We did a 24-hour collection for a creatinine clearance which was reasonable at 20 years ago. He was taken off dialysis on the . He was last seen in our office about a week ago and at that time creatinine was around 3. However he did gain significant amount of weight even back then. His last dry weight was noted to be 105 kg, at the time of last visit his weight was around 110 kg currently 112 kg. Apparently he was taking Lasix 40 mg twice a day with no metolazone. Admitted with congestive heart failure. - Allergies Allergies: Allergies carvedilol [From Coreg] Allergy (Severe, Verified 02/25/19 18:31) vomiting sertraline HCl [From Zoloft] Allergy (Verified 02/25/19 18:31) Unknown valsartan [From Diovan] Adverse Reaction (Severe, Verified 02/25/19 18:31) Possible angioedema, throat swelling bupropion HCl [From Wellbutrin] Adverse Reaction (Verified 02/25/19 18:31) gets mean citalopram Adverse Reaction (Verified 02/25/19 18:31) Other gabapentin Adverse Reaction (Verified 02/25/19 18:31) Other - Current Medications Current Medications: Current Medications Acetaminophen (Tylenol) 650 mg PO Q6H PRN PRN PRN Reason: Pain Score 1-10/Temp > 100.7 F Allopurinol (Zyloprim) 100 mg PO DAILYCM [facility] Last Admin: 02/26/19 09:01 Dose: 100 mg Documented by: Amlodipine Besylate (Norvasc) 5 mg PO BID [facility] Last Admin: 02/26/19 09:01 Dose: 5 mg Documented by: Aspirin (Ecotrin) 81 mg PO DAILY@0800 [facility] Last Admin: 02/26/19 09:01 Dose: 81 mg Documented by: Dextrose (D50w Syringe) 0 gm IV X1 PRN; Protocol PRN Reason: Hypoglycemia Enoxaparin Sodium (Lovenox) 30 mg SC DAILY [facility] Last Admin: 02/26/19 09:00 Dose: 30 mg Documented by: Fenofibrate (Tricor) 145 mg PO DAILY [facility] Last Admin: 02/26/19 09:00 Dose: 145 mg Documented by: Fluoxetine HCl (Prozac) 40 mg PO DAILY [facility] Last Admin: 02/26/19 09:00 Dose: 40 mg Documented by: Furosemide (Lasix) 60 mg IV Q8 [facility] Last Admin: 02/26/19 15:01 Dose: 60 mg Documented by: Glucagon () 1 mg IM .X1 PRN PRN Reason: Hypoglycemia Sodium Chloride () 250 mls @ 15 mls/hr IV .[id number] PRN PRN Reason: Saline Flush Insulin Glargine (Lantus (Bkc)) 45 units SC BID [facility] Last Admin: 02/26/19 08:07 Dose: 45 u Documented by: Insulin Human Lispro (Humalog Kwikpen (Bkc)) 26 unit SC TIDAC [facility] Last Admin: 02/26/19 12:07 Dose: 26 u Documented by: Insulin Human Lispro (Humalog Kwikpen (Bkc)) 0 unit SC ACHS [facility]; Protocol Last Admin: 02/26/19 12:08 Dose: Not Given Documented by: Isosorbide Mononitrate (Imdur) 30 mg PO DAILY [facility] Last Admin: 02/26/19 09:01 Dose: 30 mg Documented by: Metoprolol Tartrate (Lopressor (Beta Ayde)) 50 mg PO BID [facility] Last Admin: 02/26/19 09:00 Dose: 50 mg Documented by: Ondansetron HCl (Zofran) 4 mg IV Q8H PRN PRN PRN Reason: NAUSEA/VOMITING Sodium Chloride () 10 - 40 ml IV UD PRN PRN Reason: SALINE FLUSH Last Admin: 02/26/19 15:02 Dose: 10 ml Documented by: - Past Medical History Past Medical History (Chronic Problems): Chronic Problems (Last Reviewed 02/25/19 @ 21:19 by Manuel Roland MD) Nephrotic range proteinuria (Chronic) Chronic kidney disease (CKD) (Chronic) Pure hypercholesterolemia (Chronic) Type 2 diabetes mellitus (Chronic) Presence of stent in coronary artery (Chronic ~08/25/14) 07/18/10, PTCA/stent to mid to distal LCx artery; 08/17/10 PTCA/stent to proximal to mid RCA; PTCA of distal RCA with DEX September 2010; PTCA with EULALIO to mid distal AV groove left CFX 08/13 Essential hypertension (Chronic) Nonrheumatic aortic (valve) stenosis (Chronic) Nonspecific abnormal unspecified cardiovascular function study (Chronic) Diastolic dysfunction (Chronic) Other chcf (current) drug therapy (Chronic) Atherosclerotic heart disease of [place] coronary artery without angina pectoris (Chronic) S/P multivessel PTCA/stent and subsequent CABG with SVG to LCx, RCA and diagonal branch with subsequent SVG graft closure to the LCx and diagonal branch; S/P CABG x 3 (Chronic ~07/21/12) CABG-SVG to diagonal, SVG to obtuse marginal & SVG to PDA 07/12; GERD (gastroesophageal reflux disease) (Chronic) Anxiety (Chronic) - Past Surgical History Surgical History: angioplasty, arthroscopy, knee, coronary bypass surgery, - - Patient status post CABG x3, serial PCI, bilateral total knee replacement, rotator cuff repair, partial colectomy, cholecystectomy, carpal tunnel surgery. - Social History Smoking Status: Former smoker - Family History Maternal Family History: Family History (Last Reviewed 01/06/19 @ 15:55 by Pili May) Father CAD (coronary artery disease) Afib Aortic valve replaced Mother Cancer Son Lupus History Items: Cancer Paternal Family History: Family History (Last Reviewed 01/06/19 @ 15:55 by Pili May) Father CAD (coronary artery disease) Afib Aortic valve replaced Mother Cancer Son Lupus History Items: High Cholesterol, Heart Disease - Atrial fibrillation; valvular heart disease status post aVR; , Hypertension Review of Systems Constitutional: Denies: Chills, Fever, Weight Change HEENT: Denies: Head Aches, Sinus Congestion, Sinus Drainage Cardiovascular: Denies: Chest Pain, Palpitations Respiratory: Denies: Cough, Shortness of breath at rest, Sputum production Gastrointestinal: Denies: Abdominal Pain, Nausea, Vomiting Genitourinary: Denies: Dysuria Musculoskeletal: Denies: Joint Pain, Joint Tenderness Skin: Denies: Rash, Wounds Neurological: Denies: Numbness, Tingling, Focal weakness Psychiatric: Denies: Anxiety, Depression, Homicidal Ideations, Suicidal Ideations Hematologic/ Lymphatic: Denies: Easy Bruising, Easy Bleeding - Physical Exam Vitals/I&O's: Vital Signs Temp Pulse Resp BP Pulse Ox 97.4 F L 66 18 116/63 95 02/26/19 15:00 02/26/19 15:04 02/26/19 15:00 02/26/19 15:00 02/26/19 15:00 Oxygen Flow Rate (L/min) 2 Oxygen Delivery Method Room Air Weight: 112.9 kg Body Mass Index (BMI) 37.1 Finger Stick Blood Glucose 269 Intake and Output for Last 24 Hours 02/24/19 02/25/19 02/26/19 23:59 23:59 23:59 Intake Total 400 / 400 470 / 470 Output Total 1275 / 1275 1325 / 1325 Balance -875 / -875 -855 / -855 General: Alert, Oriented x3, Cooperative HEENT: Atraumatic, PERRLA, EOMI, Normocephalic Neck: Supple, No JVD, Negative Carotid Bruits Lungs: Clear to auscultation, Normal air movement Cardiovascular: Regular rate, No murmurs Abdomen: Bowel Sounds Present, Soft, Non Tender Extremities: No edema, Capillary Refill Less than 3 Seconds Skin: No rashes, No breakdown Musculoskeletal: No Tenderness to Palpation of Joints or Extremities Neurological: Cranial nerves II-XII grossly intact Psych/Mental Status: Normal Affect, Appropriate Microbiology Past 72 Hours 02/25/19 18:55 Urine, Clean Catch Urine Culture - Preliminary Culture exhibits no growth. Laboratory Results 02/25/19 18:48: WBC 7.8, RBC 3.12 L, Hgb 9.3 L, Hct 29.5 L, MCV 94.6 H, MCH 29.8, MCHC 31.5 L, RDW Std Deviation 54.6 H, RDW Coeff of Judi 15.8 H, Plt Count 226, MPV 9.8, Immature Gran % (Auto) 1.900 H, Neut % (Auto) 76.4 H, Lymph % (Auto) 13.9 L, [place] % (Auto) 5.7, Eos % (Auto) 1.8, Baso % (Auto) 0.3, Absolute Neuts (auto) 6.0, Absolute Lymphs (auto) 1.09, Nucleated RBC % 0 02/25/19 18:48: PT 15.6 H, INR 1.3, APTT 33.3 02/25/19 18:48: Sodium 143, Potassium 4.7, Chloride 111 H, Carbon Dioxide 22.0, Anion Gap 10, BUN 60 H, Creatinine 3.24 H, Estim Creat Clear Calc 21.82, Est GFR (MDRD) Af Amer 25 L, Est GFR (MDRD) Non-Af 20 L, BUN/Creatinine Ratio 18.5, Glucose 270 H, Calcium 8.5, Total Bilirubin 0.40, AST 19, ALT 29, Alkaline Phosphatase 68, Troponin I < 0.015, Total Protein 7.6, Albumin 3.3, Globulin 4.3 H, Albumin/Globulin Ratio 0.8 L 02/25/19 18:48: Lactic Acid 2.4 H 02/25/19 18:48: B-Natriuretic Peptide 755.5 H 02/25/19 18:55: Urine Color Yellow, Urine Clarity Clear, Urine pH 6.0, Ur Speci fic [place] 1.010, Urine Protein 100 H, Urine Glucose (UA) 250 H, Urine Ketones Negative, Urine Occult Blood Negative, Urine Nitrite Negative, Urine Bilirubin Negative, Urine Urobilinogen Normal, Ur Leukocyte Esterase Negative, Urine RBC 0 SEEN, Urine WBC 0 SEEN, Ur Squamous Epith Cells 0 SEEN, Urine Bacteria 0 SEEN, Urine Mucus 0 SEEN 02/25/19 22:24: POC Glucose 205 H 02/25/19 23:05: Lactic Acid 1.2 02/26/19 05:36: Sodium 144, Potassium 4.4, Chloride 114 H, Carbon Dioxide 21.0, Anion Gap 9, BUN 58 H, Creatinine 3.01 H, Estim Creat Clear Calc 23.49, Est GFR (MDRD) Af Amer 27 L, Est GFR (MDRD) Non-Af 22 L, BUN/Creatinine Ratio 19.3, Glucose 142 H, Calcium 8.6 02/26/19 07:42: POC Glucose 109 02/26/19 11:14: POC Glucose 127 H Current Medications Acetaminophen (Tylenol) 650 mg PO Q6H PRN PRN PRN Reason: Pain Score 1-10/Temp > 100.7 F Allopurinol (Zyloprim) 100 mg PO DAILYCM [facility] Last Admin: 02/26/19 09:01 Dose: 100 mg Documented by: Amlodipine Besylate (Norvasc) 5 mg PO BID [facility] Last Admin: 02/26/19 09:01 Dose: 5 mg Documented by: Aspirin (Ecotrin) 81 mg PO DAILY@0800 [facility] Last Admin: 02/26/19 09:01 Dose: 81 mg Documented by: Dextrose (D50w Syringe) 0 gm IV X1 PRN; Protocol PRN Reason: Hypoglycemia Enoxaparin Sodium (Lovenox) 30 mg SC DAILY [facility] Last Admin: 02/26/19 09:00 Dose: 30 mg Documented by: Fenofibrate (Tricor) 145 mg PO DAILY [facility] Last Admin: 02/26/19 09:00 Dose: 145 mg Documented by: Fluoxetine HCl (Prozac) 40 mg PO DAILY [facility] Last Admin: 02/26/19 09:00 Dose: 40 mg Documented by: Furosemide (Lasix) 60 mg IV Q8 [facility] Last Admin: 02/26/19 15:01 Dose: 60 mg Documented by: Glucagon () 1 mg IM .X1 PRN PRN Reason: Hypoglycemia Sodium Chloride () 250 mls @ 15 mls/hr IV .[id number] PRN PRN Reason: Saline Flush Insulin Glargine (Lantus (Bkc)) 45 units SC BID [facility] Last Admin: 02/26/19 08:07 Dose: 45 u Documented by: Insulin Human Lispro (Humalog Kwikpen (Bkc)) 26 unit SC TIDAC [facility] Last Admin: 02/26/19 12:07 Dose: 26 u Documented by: Insulin Human Lispro (Humalog Kwikpen (Bkc)) 0 unit SC ACHS [facility]; Protocol Last Admin: 02/26/19 12:08 Dose: Not Given Documented by: Isosorbide Mononitrate (Imdur) 30 mg PO DAILY [facility] Last Admin: 02/26/19 09:01 Dose: 30 mg Documented by: Metoprolol Tartrate (Lopressor (Beta Ayde)) 50 mg PO BID [facility] Last Admin: 02/26/19 09:00 Dose: 50 mg Documented by: Ondansetron HCl (Zofran) 4 mg IV Q8H PRN PRN PRN Reason: NAUSEA/VOMITING Sodium Chloride () 10 - 40 ml IV UD PRN PRN Reason: SALINE FLUSH Last Admin: 02/26/19 15:02 Dose: 10 ml Documented by: Assessment/Plan All Active Problems (Last Reviewed 02/25/19 @ 21:19 by Manuel Roland MD) CHF exacerbation (Acute) Chest pain (Acute) CKD stage IV/V Diabetic nephropathy Nephrotic range proteinuria Congestive heart failure. Overall he is about 7 kg or 18 pounds above his last known dry weight. Continue Lasix IV 3 times daily. At the time of discharge we will place him on Lasix 80 twice daily with metolazone as needed for weight gain. I advised him to check weights at home every day. He still has the left IJ tunneled dialysis catheter in. Leave it in for now.
[2019-02-26] MEDS: Insulin Lispro 100 UNIT/ML INSULN.PEN SC ×2 (16:54→21:37)
[2019-02-26 17:01] LABS: Bedside Glucose 204 mg/dL (70-110)
[2019-02-26 22:05] LABS: Bedside Glucose 188 mg/dL (70-110)
[2019-02-27] VITALS (10 sets, daily range): BP systolic 120–148; BP diastolic 63–78; PULSE 53–72; RESP 14–19; TEMP 36.5–37.2; O2SAT 94–97
[2019-02-27] MEDS: Furosemide 100 MG/10 ML Vial 60 MG IV (05:32)
[2019-02-27] MEDS: 0.9% Saline Lock 10 ML Syringe IV (05:32)
[2019-02-27 06:03] LABS: Absolute Lymphocyte Count 1.46 X10^3/uL (0.83-4.51); Absolute Neutrophil Count 4.9 X10^3/uL (2.0-7.7); Basophil# 0.04 X10^3/uL; Basophil% 0.5 % (0-1); Eosinophil# 0.16 X10^3/uL; Eosinophils% 2.1 % (0-5); Hematocrit 29.4 % (40-54); Lymphocyte # 1.46 X10^3/ul (4.0); Lymphocyte % 19.5 % (19-41); Mean Corp Hgb Conc 30.6 g/dL (32-36); Mean Corpuscular Hgb 28.9 pg (27.0-32.0); Mean Corpuscular Volume 94.5 fL (80-94); Mean Platelet Vol. 9.2 fl (6.2-12.0); Monocyte# 0.62 X10^3/uL; Monocyte% 8.3 % (0-10); NRBC Flagged by Analyzer 0 % (0-5); Neutrophil # 4.86 X10^3/uL (2.7-7.7); Neutrophil % 64.9 % (47-70); Platelet Count 252 K/mm3 (150-450); RBC Distribution Width CV 15.6 % (11.6-14.6); RBC Distribution Width SD 53.1 fl (35.1-43.9); Red Blood Count 3.11 M/mm3 (4.6-6.2); White Blood Count 7.5 K/mm3 (4.4-11.0)
[2019-02-27 06:21] LABS: Anion Gap 10 (5-15); BUN 64 mg/dL (7-18); BUN/Creat Ratio 17.8 RATIO (10-20); Chloride 113 mmol/L (98-107); Creatinine, Serum 3.59 mg/dL (0.70-1.30); EST Glomerular Filtration Rate 18 mL/min (>60); Est Glom Filt Rate - Afr Amer 22 mL/min (>60); Estimated Creatinine Clearance 19.69 ml/min; Glucose 147 mg/dL (74-106); Magnesium 1.9 mg/dL (1.6-2.6); Potassium 4.6 mmol/L (3.5-5.1); Sodium Level 145 mmol/L (136-145)
--- NOTE | 2019-02-27 07:31 | PN_ITS ---
Reason for Visit: congestive heart failure Subjective: Patient seen admitted to improvement in his breathing. Notes and recommendati ons from nephrology reviewed. Objective: GENERAL: cooperative HEENT: Atraumatic; EYES; Anicteric, Normal Conjunctiva NECK; supple, normal thyroid, RESPIRATORY: Diminished to auscultation CARDIOVASCULAR: Regular S1 S2, systolic murmur GI: soft, normoactive bowel sounds, : No Renal angle tenderness; EXTREMITIES: No edema, no clubbing, MUSCULOSKELETAL: no muscle waisting NEURO: Awake; no lateralizing signs. SKIN: No Rash PSYCH; Flat affect Vitals/I&O's: Vital Signs Temp Pulse Resp BP Pulse Ox 98.9 F 67 14 148/78 H 94 02/27/19 03:15 02/27/19 06:55 02/27/19 04:30 02/27/19 03:15 02/27/19 04:30 Oxygen Flow Rate (L/min) 2 Oxygen Delivery Method Room Air Weight: 110.847 kg Body Mass Index (BMI) 37.1 Finger Stick Blood Glucose 269 Intake and Output for Last 24 Hours 02/25/19 02/26/19 02/27/19 23:59 23:59 23:59 Intake Total 400 / 400 1750 / 1750 100 / 100 Output Total 1275 / 1275 4200 / 4200 1000 / 1000 Balance -875 / -875 -2450 / -2450 -900 / -900 Microbiology Past 72 Hours 02/25/19 18:55 Urine, Clean Catch Urine Culture - Preliminary Culture exhibits no growth. Laboratory Results 02/26/19 07:42: POC Glucose 109 02/26/19 11:14: POC Glucose 127 H 02/26/19 16:51: POC Glucose 204 H 02/26/19 21:31: POC Glucose 188 H 02/27/19 05:44: WBC 7.5, RBC 3.11 L, Hgb 9.0 L, Hct 29.4 L, MCV 94.5 H, MCH 28.9, MCHC 30.6 L, RDW Std Deviation 53.1 H, RDW Coeff of Judi 15.6 H, Plt Count 252, MPV 9.2, Immature Gran % (Auto) 4.700 H, Neut % (Auto) 64.9, Lymph % (Auto) 19.5, [place] % (Auto) 8.3, Eos % (Auto) 2.1, Baso % (Auto) 0.5, Absolute Neuts (auto) 4.9, Absolute Lymphs (auto) 1.46, Nucleated RBC % 0 02/27/19 05:44: Sodium 145, Potassium 4.6, Chloride 113 H, Carbon Dioxide 22.0, Anion Gap 10, BUN 64 H, Creatinine 3.59 H, Estim Creat Clear Calc 19.69, Est GFR (MDRD) Af Amer 22 L, Est GFR (MDRD) Non-Af 18 L, BUN/Creatinine Ratio 17.8, Glucose 147 H, Calcium 9.0, Magnesium 1.9 Current Medications Acetaminophen (Tylenol) 650 mg PO Q6H PRN PRN PRN Reason: Pain Score 1-10/Temp > 100.7 F Allopurinol (Zyloprim) 100 mg PO DAILYCM [facility] Last Admin: 02/26/19 09:01 Dose: 100 mg Documented by: Amlodipine Besylate (Norvasc) 5 mg PO BID [facility] Last Admin: 02/26/19 21:37 Dose: 5 mg Documented by: Aspirin (Ecotrin) 81 mg PO DAILY@0800 [facility] Last Admin: 02/26/19 09:01 Dose: 81 mg Documented by: Dextrose (D50w Syringe) 0 gm IV X1 PRN; Protocol PRN Reason: Hypoglycemia Enoxaparin Sodium (Lovenox) 30 mg SC DAILY [facility] Last Admin: 02/26/19 09:00 Dose: 30 mg Documented by: Fenofibrate (Tricor) 145 mg PO DAILY [facility] Last Admin: 02/26/19 09:00 Dose: 145 mg Documented by: Fluoxetine HCl (Prozac) 40 mg PO DAILY [facility] Last Admin: 02/26/19 09:00 Dose: 40 mg Documented by: Furosemide (Lasix) 60 mg IV Q8 [facility] Last Admin: 02/27/19 05:32 Dose: 60 mg Documented by: Glucagon () 1 mg IM .X1 PRN PRN Reason: Hypoglycemia Sodium Chloride () 250 mls @ 15 mls/hr IV .[id number] PRN PRN Reason: Saline Flush Insulin Glargine (Lantus ([facility])) 45 units SC BID [facility] Last Admin: 02/26/19 21:37 Dose: 45 u Documented by: Insulin Human Lispro (Humalog Kwikpen ([facility])) 26 unit SC TIDAC [facility] Last Admin: 02/26/19 16:53 Dose: 26 u Documented by: Insulin Human Lispro (Humalog Kwgalo (Bk)) 0 unit SC ACHS [facility]; Protocol Last Admin: 02/26/19 21:37 Dose: 1 u Documented by: Isosorbide Mononitrate (Imdur) 30 mg PO DAILY [facility] Last Admin: 02/26/19 09:01 Dose: 30 mg Documented by: Metoprolol Tartrate (Lopressor (Beta Ayde)) 50 mg PO BID [facility] Last Admin: 02/26/19 21:36 Dose: 50 mg Documented by: Ondansetron HCl (Zofran) 4 mg IV Q8H PRN PRN PRN Reason: NAUSEA/VOMITING Sodium Chloride () 10 - 40 ml IV UD PRN PRN Reason: SALINE FLUSH Last Admin: 02/27/19 05:32 Dose: 10 ml Documented by: STROKE Vital Signs/Narrative: Vital Signs Pulse Resp Pulse Ox 02/27/19 06:55 67 02/27/19 04:30 53 L 14 94 Medical Necessity - Tobacco Use Smoking Status: Former smoker Tobacco Use: Cigarettes Assessment/Plan All Active Problems (Last Reviewed 02/25/19 @ 21:19 by Manuel Roland MD) CHF exacerbation (Acute) Chest pain (Acute) Patient is a 69-year-old gentleman with multiple comorbidities including coronary artery disease with previous CABG COPD obstructive sleep apnea who presented with progressive shortness of breath. Patient was previously on dialysis and had recently been taking of. Imaging studies obtained on admission demonstrated pulmonary venous congestion and pulmonary edema consistent with acute congestive heart failure 1. Acute congestive heart failure with preserved ejection fraction ~echo obtained from 12/11/2018 demonstrated EF of 65%. Patient has been admitted to a monitored bed. Placed on fluid restriction initially thousand 500 patient however requested this to be increased to 2000. Patient also on Lasix did increase the dose from 40 twice daily to 60 Q8. Patient was also placed on strict input and output, daily weights and supplemental oxygen titrated to keep saturation greater than 90 ?02/27/2019: Improving clinically plan is to discharge patient home on 80 mg of Lasix twice daily as recommended by nephrology 2. Lactic acidosis ~Sepsis ruled out this was attributed to increased work of breathing from his underlying COPD 3. COPD with mild exacerbation ~treated with aerosol treatment and supplemental oxygen 4. Coronary artery disease ?With previous CABG and subsequent stent placement 5. Hypertension ~ blood pressure controlled, home medications continued with dose adjustment as needed 6. Dyslipidemia ~patient is on fenofibrate held in view of patient impaired kidney function 7. Diabetes mellitus type II ~Controlled Placed on long acting insulin, Accu-Cheks a.c. and at bedtime and covered with sliding scale insulin 8. Obstructive sleep apnea ?Patient is a CPAP at home 9. End-stage renal disease patient was previously on dialysis he was however thinking of after a significant improvement in his creatinine consult was placed the patient primary director of user experience 10. Moderate to severe aortic stenosis ~patient to follow-up with cardiology as outpatient for subsequent management 11. DVT prophylaxis ~ on enoxaparin 12. Obesity with BMI of 36.8 ?Weight loss and lifestyle modification advised Code Visit Inpatient E&M: 67926 Subs Hosp L2
[2019-02-27] MEDS: Insulin Lispro 100 UNIT/ML INSULN.PEN 26 UNIT SC ×2 (08:10→11:26)
[2019-02-27] MEDS: Insulin Lispro 100 UNIT/ML INSULN.PEN SC ×2 (08:10→11:27)
[2019-02-27] MEDS: Metoprolol Tartrate 50 MG Tablet PO (08:23)
[2019-02-27] MEDS: Allopurinol 100 MG Tablet PO (08:23)
[2019-02-27] MEDS: amLODIPine 5 MG Tablet PO (08:23)
[2019-02-27] MEDS: Aspirin E.C. 81 MG Tablet PO (08:23)
[2019-02-27] MEDS: Fenofibrate 145 MG Tablet PO (08:23)
[2019-02-27] MEDS: Enoxaparin 30 MG/0.3 ML Syringe SC (08:24)
[2019-02-27] MEDS: Isosorbide Mononitrate 30 MG Tablet PO (08:24)
[2019-02-27] MEDS: FLUoxetine 20 MG Capsule 40 MG PO (08:24)
[2019-02-27 08:36] LABS: Bedside Glucose 153 mg/dL (70-110)
--- NOTE | 2019-02-27 09:19 | PCM.DC ---
- Discharge Diagnoses Current Active Problems: Current Active and Chronic Problems (Last Reviewed 02/25/19 @ 21:19 by Manuel Roland MD) Chronic kidney disease (CKD) (Chronic) You will use the following diet at home:: Cardiac, Fluid restricted (specify 2000 mls, 1500 mls) - 1999, Renal (restricted protein/sodium) Call your doctor if you observe: Shortness of breath, Chest pain Allergies/Adverse Reactions: Allergies carvedilol [From Coreg] Allergy (Severe, Verified 02/25/19 18:31) vomiting sertraline HCl [From Zoloft] Allergy (Verified 02/25/19 18:31) Unknown valsartan [From Diovan] Adverse Reaction (Severe, Verified 02/25/19 18:31) Possible angioedema, throat swelling bupropion HCl [From Wellbutrin] Adverse Reaction (Verified 02/25/19 18:31) gets mean citalopram Adverse Reaction (Verified 02/25/19 18:31) Other gabapentin Adverse Reaction (Verified 02/25/19 18:31) Other Medications to take at Discharge Nitroglycerin (INPATIENT USE) [Nitrostat] 0.4 mg SUBLINGUAL Q5M PRN 10/27/13 coenzyme Q10 400 mg capsule 400 mg PO BID #90 cap 09/13/17 berberine-herbal comb no.18 capsule 1 cap PO BID cap 02/24/18 fenofibrate nanocrystallized 160 mg tablet 160 mg PO DAILY #30 tab 02/24/18 Insulin Glargine [Lantus SoloStar Pen] 50 units SUBCUT BID #5 pen 12/23/18 metoprolol tartrate 50 mg tablet 50 mg PO BID #180 tab 02/17/19 Allopurinol 100 mg PO DAILY 02/25/19 Amlodipine Besylate 5 mg PO BID 02/25/19 Aspirin E.C. [Ecotrin] 81 mg PO DAILY@0800 02/25/19 Astaxanthin 4 mg PO DAILY 02/25/19 B Complex W-C No.20/Folic Acid [Renal Caps Softgel] 1 mg PO DAILY 02/25/19 Fluoxetine HCl 40 mg PO DAILY 02/25/19 Insulin Aspart [Novolog Flexpen] 36 units SUBCUT TIDCM 02/25/19 Isosorbide Mononitrate [Isosorbide Mononitrate ER] 30 mg PO DAILY 02/25/19 Furosemide [Lasix] 80 mg PO BIDLX #120 tab 02/27/19 The following prescriptions were given: Furosemide [Lasix] 80 mg PO BIDLX #120 tab Transmission Status: Pending to [facility] Primary Care Physician: Davon Lemus MD [Primary Care Provider] - Please follow up with your Primary Care Physician in: [place] 5-7 DAYS Test Results: Test results from this visit will be discussed in further detail at your follow-up appointment, if applicable. Please Follow Up With: Monica Rodrigez MD When: SCHEDULED Proposed Discharge Date: 02/27/19
--- NOTE | 2019-02-27 09:22 | DS.PCM_ITS ---
Discharge Date and Diagnosis Date of Admission: 02/25/19 Date of Discharge: 02/27/19 - Primary Discharge Diagnosis Acute on chronic congestive heart failure with preserved ejection fraction - Secondary Discharge Diagnosis Chronic Problems (Last Reviewed 02/25/19 @ 21:19 by Manuel Roland MD) Nephrotic range proteinuria (Chronic) Chronic kidney disease (CKD) (Chronic) Pure hypercholesterolemia (Chronic) Type 2 diabetes mellitus (Chronic) Presence of stent in coronary artery (Chronic ~08/25/14) 07/18/10, PTCA/stent to mid to distal LCx artery; 08/17/10 PTCA/stent to proximal to mid RCA; PTCA of distal RCA with DEX September 2010; PTCA with EULALIO to mid distal AV groove left CFX 08/13 Essential hypertension (Chronic) Nonrheumatic aortic (valve) stenosis (Chronic) Nonspecific abnormal unspecified cardiovascular function study (Chronic) Diastolic dysfunction (Chronic) Other correction (current) drug therapy (Chronic) Atherosclerotic heart disease of ione coronary artery without angina pectoris (Chronic) S/P multivessel PTCA/stent and subsequent CABG with SVG to LCx, RCA and diagonal branch with subsequent SVG graft closure to the LCx and diagonal branch; S/P CABG x 3 (Chronic ~07/21/12) CABG-SVG to diagonal, SVG to obtuse marginal & SVG to PDA 07/12; GERD (gastroesophageal reflux disease) (Chronic) Anxiety (Chronic) Hospital Course and Treatment Imaging Results: Clinical Impression(s) from Imaging Studies Chest X-Ray 02/25/19 18:45 IMPRESSION: Hyperexpansion, borderline cardiomegaly, pulmonary venous congestion and mild pulmonary edema consistent with mild congestive heart failure. Status post prior midline sternotomy. Multilumen left central venous catheter ends in the distal superior vena cava. Electronically Signed: Sharifa Holcomb MD at 19:09 EST , Service support , Operations: [email or web address] - 10/29/[address] Arnol Brooks, ERCP - Dr. Solis on 10/27/13 and 10/30/13 Summary of Care Provided: Patient is a 69-year-old gentleman with multiple comorbidities including coronary artery disease with previous CABG COPD obstructive sleep apnea who presented with progressive shortness of breath. Patient was previously on dialysis and had recently been taking of. Imaging studies obtained on admission demonstrated pulmonary venous congestion and pulmonary edema consistent with acute congestive heart failure 1. Acute congestive heart failure with preserved ejection fraction ~echo obtained from 12/11/2018 demonstrated EF of 65%. Patient has been admitted to a monitored bed. Placed on fluid restriction initially thousand 500 patient however requested this to be increased to 2000. Patient also on Lasix did increase the dose from 40 twice daily to 60 Q8. Patient was also placed on strict input and output, daily weights and supplemental oxygen titrated to keep saturation greater than 90 Patient did improve clinically and was discharged home on 80 mg of Lasix twice daily as recommended by nephrology 2. Lactic acidosis ~Sepsis ruled out this was attributed to increased work of breathing from his underlying COPD 3. COPD with mild exacerbation ~treated with aerosol treatment and supplemental oxygen 4. Coronary artery disease ?With previous CABG and subsequent stent placement 5. Hypertension ~ blood pressure controlled, home medications continued with dose adjustment as needed 6. Dyslipidemia ~patient is on fenofibrate held in view of patient impaired kidney function 7. Diabetes mellitus type II ~Controlled Placed on long acting insulin, Accu-Cheks a.c. and at bedtime and covered with sliding scale insulin 8. Obstructive sleep apnea ?Patient is a CPAP at home 9. End-stage renal disease patient was previously on dialysis he was however thinking of after a significant improvement in his creatinine consult was placed the patient primary last waxer 10. Moderate to severe aortic stenosis ~patient to follow-up with cardiology as outpatient for subsequent management 11. DVT prophylaxis ~ on enoxaparin 12. Obesity with BMI of 36.8 ?Weight loss and lifestyle modification advised - Physical Exam Vitals/I&O's: Vital Signs Temp Pulse Resp BP Pulse Ox 97.7 F L 72 16 133/73 H 96 02/27/19 08:19 02/27/19 08:23 02/27/19 08:19 02/27/19 08:19 02/27/19 08:19 Oxygen Flow Rate (L/min) 2 Oxygen Delivery Method Room Air Weight: 110.847 kg Body Mass Index (BMI) 37.1 Finger Stick Blood Glucose 269 Intake and Output for Last 24 Hours 02/25/19 02/26/19 02/27/19 23:59 23:59 23:59 Intake Total 400 / 400 1750 / 1750 100 / 100 Output Total 1275 / 1275 4200 / 4200 1000 / 1000 Balance -875 / -875 -2450 / -2450 -900 / -900 General: Alert HEENT: Atraumatic Lungs: Diminished Neurological: Neuro grossly intact Psych/Mental Status: Normal Affect Microbiology Past 72 Hours 02/25/19 18:55 Urine, Clean Catch Urine Culture - Preliminary Culture exhibits no growth. Laboratory Results 02/26/19 11:14: POC Glucose 127 H 02/26/19 16:51: POC Glucose 204 H 02/26/19 21:31: POC Glucose 188 H 02/27/19 05:44: WBC 7.5, RBC 3.11 L, Hgb 9.0 L, Hct 29.4 L, MCV 94.5 H, MCH 28.9, MCHC 30.6 L, RDW Std Deviation 53.1 H, RDW Coeff of Judi 15.6 H, Plt Count 252, MPV 9.2, Immature Gran % (Auto) 4.700 H, Neut % (Auto) 64.9, Lymph % (Auto) 19.5, [place] % (Auto) 8.3, Eos % (Auto) 2.1, Baso % (Auto) 0.5, Absolute Neuts (auto) 4.9, Absolute Lymphs (auto) 1.46, Nucleated RBC % 0 02/27/19 05:44: Sodium 145, Potassium 4.6, Chloride 113 H, Carbon Dioxide 22.0, Anion Gap 10, BUN 64 H, Creatinine 3.59 H, Estim Creat Clear Calc 19.69, Est GFR (MDRD) Af Amer 22 L, Est GFR (MDRD) Non-Af 18 L, BUN/Creatinine Ratio 17.8, Glucose 147 H, Calcium 9.0, Magnesium 1.9 02/27/19 08:08: POC Glucose 153 H Current Medications Acetaminophen (Tylenol) 650 mg PO Q6H PRN PRN PRN Reason: Pain Score 1-10/Temp > 100.7 F [facility] Last Admin: 02/27/19 08:23 Dose: 100 mg Documented by: Amlodipine Besylate (Norvasc) 5 mg PO BID [facility] Last Admin: 02/27/19 08:23 Dose: 5 mg Documented by: Aspirin (Ecotrin) 81 mg PO DAILY@0800 [facility] Last Admin: 02/27/19 08:23 Dose: 81 mg Documented by: Dextrose (D50w Syringe) 0 gm IV X1 PRN; Protocol PRN Reason: Hypoglycemia Enoxaparin Sodium (Lovenox) 30 mg SC DAILY [facility] Last Admin: 02/27/19 08:24 Dose: 30 mg Documented by: Fenofibrate (Tricor) 145 mg PO DAILY [facility] Last Admin: 02/27/19 08:23 Dose: 145 mg Documented by: Fluoxetine HCl (Prozac) 40 mg PO DAILY [facility] Last Admin: 02/27/19 08:24 Dose: 40 mg Documented by: Furosemide (Lasix) 60 mg IV Q8 [facility] Last Admin: 02/27/19 05:32 Dose: 60 mg Documented by: Glucagon () 1 mg IM .X1 PRN PRN Reason: Hypoglycemia Sodium Chloride () 250 mls @ 15 mls/hr IV .[id number] PRN PRN Reason: Saline Flush Insulin Glargine (Lantus (Bkc)) 45 units SC BID [facility] Last Admin: 02/27/19 08:24 Dose: 45 u Documented by: Insulin Human Lispro (Humalog Kwikpen ([facility]kc)) 26 unit SC TIDAC [facility] Last Admin: 02/27/19 08:10 Dose: 26 u Documented by: Insulin Human Lispro (Humalog Kwikpen ([facility]kc)) 0 unit SC ACHS [facility]; Protocol Last Admin: 02/27/19 08:10 Dose: 1 u Documented by: Isosorbide Mononitrate (Imdur) 30 mg PO DAILY [facility] Last Admin: 02/27/19 08:24 Dose: 30 mg Documented by: Metoprolol Tartrate (Lopressor (Beta Ayde)) 50 mg PO BID [facility] Last Admin: 02/27/19 08:23 Dose: 50 mg Documented by: Ondansetron HCl (Zofran) 4 mg IV Q8H PRN PRN PRN Reason: NAUSEA/VOMITING Sodium Chloride () 10 - 40 ml IV UD PRN PRN Reason: SALINE FLUSH Last Admin: 02/27/19 05:32 Dose: 10 ml Documented by: Discharge Diet: 8 Cup Fluid Restriciton, Renal Diet Discharge Activity: Return to Normal Activity Call your doctor if you observe: Shortness of breath, Chest pain Home Medications: Medications to take at Discharge Nitroglycerin (INPATIENT USE) [Nitrostat] 0.4 mg SUBLINGUAL Q5M PRN 10/27/13 coenzyme Q10 400 mg capsule 400 mg PO BID #90 cap 09/13/17 berberine-herbal comb no.18 capsule 1 cap PO BID cap 02/24/18 fenofibrate nanocrystallized 160 mg tablet 160 mg PO DAILY #30 tab 02/24/18 Insulin Glargine [Lantus SoloStar Pen] 50 units SUBCUT BID #5 pen 12/23/18 metoprolol tartrate 50 mg tablet 50 mg PO BID #180 tab 02/17/19 Allopurinol 100 mg PO DAILY 02/25/19 Amlodipine Besylate 5 mg PO BID 02/25/19 Aspirin E.C. [Ecotrin] 81 mg PO DAILY@0800 02/25/19 Astaxanthin 4 mg PO DAILY 02/25/19 B Complex W-C No.20/Folic Acid [Renal Caps Softgel] 1 mg PO DAILY 02/25/19 Fluoxetine HCl 40 mg PO DAILY 02/25/19 Insulin Aspart [Novolog Flexpen] 36 units SUBCUT TIDCM 02/25/19 Isosorbide Mononitrate [Isosorbide Mononitrate ER] 30 mg PO DAILY 02/25/19 Furosemide [Lasix] 80 mg PO BIDLX #120 tab 02/27/19 Following Prescrptions Were Given to Patient: Furosemide [Lasix] 80 mg PO BIDLX #120 tab Transmission Status: Pending to [facility] Primary Care Physician: Davon Lemus MD [Primary Care Provider] - Please follow up with your Primary Care Physician in: [place] 5-7 DAYS Please Follow Up With: Monica Rodrigez MD When: SCHEDULED Disposition: Home Minutes spent on discharge:: 45 Patient Condition:: Stable Medical Necessity - Tobacco Use Smoking Status: Former smoker Tobacco Use: Cigarettes Meaningful Use Info Meaningful Use Diagnoses (Choose all that apply): CHF - CHF WILMER/ARB ordered at discharge?: Yes Reason WILMER/ARB not ordered?: Worsening renal disease Documented LVEF (%): 65 Code Visit Inpatient E&M: 69771 Disch Hosp
--- NOTE | 2019-02-27 09:50 | CASEMGMT ---
Addendum entered by Jil Encarnacion 02/27/19 13:35: Clinicals faxed to [place] transfer center for their records at this time. Jaylan STRICKLAND CM Original Note: MARCO A ASTORGA assessment: Face to Face with patient for initial transition planning/care coordination assessment. MARCO A ASTORGA introduced self and role at [facility], pt voices understanding and consents to assessment at this time. Pt is sitting up in chair in no distress at this time on room air. Pt is A/Ox4 at this time and answers all questions appropriately at this time. Pt's is at bedside during assessment. Care providers, pharmacy, and demographics verified at this time. PCP: Ada Lemus [place] Specialists: Peter, cardio; Elia nephmelissa Preferred Pharmacy: [facility] Insurance: [facility] A[facility]B, [facility], [place] Prescription Benefit: Yes Living Will/HPOA: Pt states has LW/HPOA and they are on file at [facility] at this time. Pt states that his , Diana Gardner, is HPOA. LNOK: Diana Gardner, ; Rafael Gardner, son Living Arrangements: Pt states lives with in 2 story home and states no concerns at home at this time. Pt states is independent with ADL's. Transportation: Pt states drives self and states no tranportation concerns at this time. DME/HHC: Pt states has the following DME: walker, diabetic ortho shoes, and 2 cpap's. Pt states no need for any further DME at this time. Pt states is no longer on hemodialysis and is hoping to have dialysis catheter removed soon. Pt states has been to [facility] and [facility] in the past. Pt states no concerns with going home at time of discharge. Pt states is retired. Pt states has not smoked in 30 years. Pt states does not drink ETOH. Pt states no further concerns/needs at this time. CM to follow for any further discharge planning/needs. Advised pt to ask for CM if any further discharge planning/needs arise, voices understanding. Pt Goal: Home Plan: Home Jaylan STRICKLAND CM
[2019-02-27 11:36] LABS: Bedside Glucose 172 mg/dL (70-110)
--- NOTE | 2019-03-02 15:25 | CASEMGMT ---
MARCO A [facility] PHONE CALL DC DATE: 02.27.19 DC Disposition: Home Diagnosis on Discharge: CHF LACE/STRATA: 02/01 Attempted call. No answer. Remington Cox RN AC
== END 2019-02-27 12:00 | disposition home or self-care (01) | DRG 291 ==
LOC: ED 19:13 → PCU 20:53
PROVIDERS: Admitting Provider Hospitalist; Emergency Provider Emergency Medicine; Family Provider Internal Medicine; PCP Internal Medicine; Visit Provider Internal Medicine
DX: I13.2 Hypertensive heart and chronic kidney disease with heart failure and with stage 5 chronic kidney disease, or end stage renal disease (principal); I50.33 Acute on chronic diastolic (congestive) heart failure; E87.2 Acidosis; J44.1 Chronic obstructive pulmonary disease with (acute) exacerbation; N18.5 Chronic kidney disease, stage 5; E11.22 Type 2 diabetes mellitus with diabetic chronic kidney disease; I35.0 Nonrheumatic aortic (valve) stenosis; I25.10 Atherosclerotic heart disease of native coronary artery without angina pectoris; G47.33 Obstructive sleep apnea (adult) (pediatric); E78.00 Pure hypercholesterolemia, unspecified; Z87.891 Personal history of nicotine dependence; E66.9 Obesity, unspecified; Z68.36 Body mass index [BMI] 36.0-36.9, adult; Z95.1 Presence of aortocoronary bypass graft; Z95.5 Presence of coronary angioplasty implant and graft; Z79.899 Other long term (current) drug therapy; F41.9 Anxiety disorder, unspecified; Z79.4 Long term (current) use of insulin
CPT/HCPCS: 36415; 71045; 80048; 80053; 81001; 82962; 83605; 83735; 83880; 84484; 85025; 85610; 85730; 87040; 87086; 93005; 94660; 99285; A4216; J1940

== ENCOUNTER → 2019-03-03 10:00 | Outpatient (CLI) | payer MEDICARE, OTHER, SELFPAY ==
[2019-02-25 21:01] VITALS: BMI 37.1
[2019-03-03 10:25] LABS: Hematocrit 30.5 % (40-54); Hemoglobin 9.5 g/dL (13.0-16.5); Mean Corp Hgb Conc 31.1 g/dL (32-36); Mean Corpuscular Hgb 29.6 pg (27.0-32.0); Mean Platelet Vol. 9.1 fl (6.2-12.0); Platelet Count 265 K/mm3 (150-450); RBC Distribution Width CV 15.7 % (11.6-14.6); RBC Distribution Width SD 54.6 fl (35.1-43.9); Red Blood Count 3.21 M/mm3 (4.6-6.2); White Blood Count 9.5 K/mm3 (4.4-11.0)
[2019-03-03 10:43] LABS: Albumin, Serum 3.3 g/dL (3.2-5.0); BUN 83 mg/dL (7-18); BUN/Creat Ratio 22.6 RATIO (10-20); Calcium,Total 7.7 mg/dL (8.5-10.1); Chloride 110 mmol/L (98-107); Creatinine, Serum 3.67 mg/dL (0.70-1.30); EST Glomerular Filtration Rate 18 mL/min (>60); Est Glom Filt Rate - Afr Amer 21 mL/min (>60); Glucose 241 mg/dL (74-106); Phosphorus 4.2 mg/dL (2.5-4.9); Potassium 4.4 mmol/L (3.5-5.1); Sodium Level 141 mmol/L (136-145)
[2019-03-03 11:16] LABS: Color, Urine Yellow (Yellow); Glucose, Dipstick 100 mg/dl (Normal); Ketone-Dipstick Negative (Negative); Leukocyte Esterase-Dipstick Negative /ul (Negative); Nitrite-Dipstick Negative (Negative); Occult Blood-Urine Negative /ul (Negative); Protein-Dipstick 100 mg/dl (Negative); Specific Gravity, Urine 1.015 (1.002-1.030); Urine Bilirubin Dipstick Negative (Negative); Urine Clarity Clear (Clear); Urine Urobilinogen Normal (Normal)
[2019-03-03 11:23] LABS: Protein, Urine (Random) 152.3 mg/dL (<11.9); Protein:Creat Ratio 2568 mg/g CRE (0-200)
[2019-03-03 14:52] LABS: PTHIN 190.6 pg/mL (18.4-80.1)
[2019-03-03 14:58] LABS: Vitamin D,25 Hydroxy 25.7 ng/mL (29.95-100.01)
== END ==
PROVIDERS: Family Provider Internal Medicine; PCP Internal Medicine
DX: N18.4 Chronic kidney disease, stage 4 (severe) (principal); D64.9 Anemia, unspecified; R80.9 Proteinuria, unspecified; E55.9 Vitamin D deficiency, unspecified
CPT/HCPCS: 36415; 80069; 81002; 82306; 82570; 83970; 84156; 85027

== ENCOUNTER → 2019-04-22 08:25 | Outpatient (CLI) | payer MEDICARE, OTHER, SELFPAY ==
[2019-04-20 09:32] VITALS: BMI 34.9
[2019-04-22 09:21] LABS: Hematocrit 32.3 % (40-54); Hemoglobin 9.9 g/dL (13.0-16.5); Mean Corp Hgb Conc 30.7 g/dL (32-36); Mean Corpuscular Hgb 28.9 pg (27.0-32.0); Mean Corpuscular Volume 94.4 fL (80-94); Mean Platelet Vol. 9.6 fl (6.2-12.0); Platelet Count 279 K/mm3 (150-450); RBC Distribution Width CV 14.1 % (11.6-14.6); RBC Distribution Width SD 48.5 fl (35.1-43.9); Red Blood Count 3.42 M/mm3 (4.6-6.2); White Blood Count 11.6 K/mm3 (4.4-11.0)
[2019-04-22 09:29] LABS: Anion Gap 9 (5-15); BUN 83 mg/dL (7-18); BUN/Creat Ratio 21.2 RATIO (10-20); Calcium,Total 8.4 mg/dL (8.5-10.1); Chloride 105 mmol/L (98-107); Creatinine, Serum 3.92 mg/dL (0.70-1.30); EST Glomerular Filtration Rate 16 mL/min (>60); Est Glom Filt Rate - Afr Amer 20 mL/min (>60); Glucose 323 mg/dL (74-106); Potassium 4.8 mmol/L (3.5-5.1); Sodium Level 139 mmol/L (136-145)
[2019-04-22 09:32] LABS: Protein, Urine (Random) 206.1 mg/dL (<11.9); Protein:Creat Ratio 3458 mg/g CRE (0-200)
== END ==
PROVIDERS: PCP Internal Medicine; Referring Provider Internal Medicine Nephrology; Visit Provider Internal Medicine Nephrology
DX: N18.4 Chronic kidney disease, stage 4 (severe) (principal); D64.9 Anemia, unspecified
CPT/HCPCS: 36415; 80048; 82570; 84156; 85027

== ENCOUNTER → 2019-05-05 12:44 | Outpatient (CLI) | payer MEDICARE, OTHER, SELFPAY ==
[2019-04-20 09:32] VITALS: BMI 34.9
--- NOTE | 2019-05-05 12:56 | VDUE_ITS ---
Reason For Study: CKD4 Right Arm Left Arm Right cephalic vein is compressible. Left cephalic vein is compressible. Right Cephalic Vein at the shoulder Left Cephalic Vein at the shoulder measures .4 x .37 cm. measures .34 x .31 cm. Right Cephalic Vein mid bicep measures .39 Left Cephalic Vein at mid bicep measures .29 x .37 cm. x .31 cm. Right Cephalic Vein above antecub Left Cephalic Vein above antecub measures .37 measures .44 x .45 cm. x .35 cm. Right Cephalic Vein below antecub Left Cephalic Vein below antecub measures .31 measures .39 x .41 cm. x .33 cm. Right Cephalic Vein in the forearm Left Cephalic Vein in the forearm measures .36 x .35 cm. measures .36 x .36 cm. Right Cephalic Vein at the wrist measures .24 Left Cephalic Vein at the wrist measures .34 x .25 cm. x .33 cm. Cephalic Vein is tortuous. Cephalic V is tortuous. Right basilic vein is compressible. Left basilic vein is compressible. Right Basilic Vein mid bicep measures .65 Basilic vein at bicep measures .69 x .68 cm. x .65 cm. Basilic vein above antecub measures .63 x .65 Right Basilic Vein above antecub measures .35 cm. x .35 cm. Basilic vein below antecub measures .2 x .21 Right Basilic Vein below antecub measures .26 cm. x .28 cm. Basilic vein in the forearm measures .16 Right Basilic Vein in the forearm measures .2 x .17 cm. x .23 cm. Basilic vein at the wrist measures .15 x .18 Right Basilic Vein at the wrist measures .24 cm. x .28 cm. Brachial art .52 x .50 cm. Brachial art .52 x .51 cm. Brachial art 99.4 cm/s. Brachial art 92.4 cm/s. Radial art .2 1x .23 cm. Radial art .2 x .24 cm. Radial art 77.3 cm/s. Radial art 87.2 cm/s. Interpretation Summary Patent and compressible bilateral upper extremity cephalic and basilic veins as noted. Bilateral cephalic veins are noted to be tortuous Normal diameter and flow bilateral brachial arteries. Borderline diameter bilateral radial arteries with normal flow Ordering Physician: Monica Rodrigez Performed By: Darwin Boykin RVT ?
== END ==
PROVIDERS: PCP Internal Medicine; Referring Provider Internal Medicine Nephrology; Visit Provider Internal Medicine Nephrology
DX: Z01.818 Encounter for other preprocedural examination (principal); N18.4 Chronic kidney disease, stage 4 (severe); G47.33 Obstructive sleep apnea (adult) (pediatric)
CPT/HCPCS: 93970; 95811

== ENCOUNTER → 2019-05-29 09:17 | Outpatient (CLI) | payer MEDICARE, OTHER, SELFPAY ==
[2019-04-20 09:32] VITALS: BMI 34.9
[2019-05-29 09:46] LABS: Hematocrit 32.7 % (40-54); Hemoglobin 10.3 g/dL (13.0-16.5); Mean Corp Hgb Conc 31.5 g/dL (32-36); Mean Corpuscular Hgb 28.7 pg (27.0-32.0); Mean Corpuscular Volume 91.1 fL (80-94); Mean Platelet Vol. 9.4 fl (6.2-12.0); Platelet Count 215 K/mm3 (150-450); RBC Distribution Width CV 13.8 % (11.6-14.6); RBC Distribution Width SD 46.3 fl (35.1-43.9); Red Blood Count 3.59 M/mm3 (4.6-6.2); White Blood Count 10.1 K/mm3 (4.4-11.0)
[2019-05-29 09:57] LABS: Protein, Urine (Random) 176.1 mg/dL (<11.9); Protein:Creat Ratio 2644 mg/g CRE (0-200)
[2019-05-29 10:12] LABS: Vitamin D,25 Hydroxy 12.6 ng/mL
[2019-05-29 10:29] LABS: PTHIN 212.9 pg/mL (18.4-80.1)
[2019-05-29 10:33] LABS: Albumin, Serum 3.3 g/dL (3.2-5.0); BUN 92 mg/dL (7-18); BUN/Creat Ratio 25.9 RATIO (10-20); Calcium,Total 8.2 mg/dL (8.5-10.1); Chloride 104 mmol/L (98-107); Creatinine, Serum 3.55 mg/dL (0.70-1.30); EST Glomerular Filtration Rate 18 mL/min (>60); Est Glom Filt Rate - Afr Amer 22 mL/min (>60); Glucose 308 mg/dL (74-106); Phosphorus 4.4 mg/dL (2.5-4.9); Potassium 4.3 mmol/L (3.5-5.1); Sodium Level 138 mmol/L (136-145)
== END ==
PROVIDERS: PCP Internal Medicine; Referring Provider Internal Medicine Nephrology; Visit Provider Internal Medicine Nephrology
DX: N18.4 Chronic kidney disease, stage 4 (severe) (principal); D64.9 Anemia, unspecified; E55.9 Vitamin D deficiency, unspecified
CPT/HCPCS: 36415; 80069; 82306; 82570; 83970; 84156; 85027

== ENCOUNTER → 2019-11-07 08:08 | Outpatient (CLI) | payer MEDICARE, OTHER, SELFPAY ==
[2019-06-04 10:17] VITALS: BMI 38.0
[2019-11-07 08:43] LABS: Hematocrit 30.4 % (40-54); Hemoglobin 8.9 g/dL (13.0-16.5); Mean Corp Hgb Conc 29.3 g/dL (32-36); Mean Corpuscular Hgb 27.5 pg (27.0-32.0); Mean Corpuscular Volume 93.8 fL (80-94); Mean Platelet Vol. 9.3 fl (6.2-12.0); Platelet Count 204 K/mm3 (150-450); RBC Distribution Width CV 17.5 % (11.6-14.6); RBC Distribution Width SD 59.1 fl (35.1-43.9); Red Blood Count 3.24 M/mm3 (4.6-6.2)
[2019-11-07 09:04] LABS: Albumin, Serum 3.5 g/dL (3.2-5.0); BUN 93 mg/dL (7-18); BUN/Creat Ratio 37.1 RATIO (10-20); Calcium,Total 8.5 mg/dL (8.5-10.1); Chloride 118 mmol/L (98-107); Creatinine, Serum 2.51 mg/dL (0.70-1.30); EST Glomerular Filtration Rate 27 mL/min (>60); Est Glom Filt Rate - Afr Amer 33 mL/min (>60); Glucose 176 mg/dL (74-106); Phosphorus 4.8 mg/dL (2.5-4.9); Potassium 4.6 mmol/L (3.5-5.1); Protein:Creat Ratio 2007 mg/g CRE (0-200); Sodium Level 146 mmol/L (136-145)
[2019-11-09 10:33] LABS: Vitamin D,25 Hydroxy 39.2 ng/mL
[2019-11-10 12:14] LABS: PTHIN 117.6 pg/mL (18.4-80.1)
== END ==
LOC: LAB.FUTURE 08:10 → LAB 12:53
PROVIDERS: PCP Internal Medicine; Referring Provider Internal Medicine Nephrology; Visit Provider Internal Medicine Nephrology
DX: N18.4 Chronic kidney disease, stage 4 (severe) (principal); E55.9 Vitamin D deficiency, unspecified; D64.9 Anemia, unspecified
CPT/HCPCS: 36415; 80069; 82306; 82570; 83970; 84156; 85027

== ENCOUNTER 2019-11-10 16:25 | Inpatient (IN) | payer OTHER, MEDICARE, SELFPAY ==
[2019-06-04 10:17] VITALS: BMI 38.0
[2019-11-10] VITALS (7 sets, daily range): BP systolic 125–141; BP diastolic 57–71; PULSE 64–74; RESP 16–20; TEMP 36.5–36.8; O2SAT 93–97; BMI 32.1; BMI 37.5
--- NOTE | 2019-11-10 16:45 | EKG12_ITS ---
Test Reason : GI BLEED Blood Pressure : / mmHG Vent. Rate : 065 BPM Atrial Rate : 065 BPM P-R Int : 182 ms QRS Dur : 098 ms QT Int : 470 ms P-R-T Axes : 041 075 060 degrees QTc Int : 488 ms Normal sinus rhythm Normal ECG Confirmed by ZEN VANN ([id number]), writer editor ROCÍO NORTON ([id number]) on 11/13/2019 10:24:43 AM Referred By: IGNACIO Confirmed By:ZEN VANN
--- NOTE | 2019-11-10 16:59 | ED.VIS.GEN ---
History of Present Illness Chief Complaint: GI Bleed Informant: Patient Narrative: Patient is a 69-year-old male with significant past medical history for coronary artery disease with multiple bypass graft who presents to the emergency department for suspected GI bleed. He states his been having black tarry stools over the past month or 2. They are not sure what his hemoglobin was. He states he has been feeling lightheaded and gets very short of breath when walking short distances. He denies any GI bleeds before in the past except for diverticulitis that ruptured requiring partial colectomy. While at rest he does not have any symptoms. He occasionally has been nauseous but no vomiting. No fevers or chills. No significant chest pain. He denies any leg swelling or calf pain. He is not on any anticoagulation except for a baby aspirin. No other bleeding or bruising elsewhere. He occasionally does have bright red blood in the stool but this is not as frequent as the black tarry. Past Medical History - Allergies and Home Meds Allergies/Adverse Reactions: Allergies carvedilol [From Coreg] Allergy (Severe, Verified 11/10/19 16:26) vomiting sertraline HCl [From Zoloft] Allergy (Verified 11/10/19 16:26) Unknown valsartan [From Diovan] Adverse Reaction (Severe, Verified 11/10/19 16:26) Possible angioedema, throat swelling bupropion HCl [From Wellbutrin] Adverse Reaction (Verified 11/10/19 16:26) gets mean citalopram Adverse Reaction (Verified 11/10/19 16:26) Other gabapentin Adverse Reaction (Verified 11/10/19 16:26) Other Prior records reviewed: Yes Past Medical History: - - CAD, diabetes, hypertension, hyperlipidemia Surgical History: angioplasty, arthroscopy, knee, coronary bypass surgery, - - Patient status post CABG x3, serial PCI, bilateral total knee replacement, rotator cuff repair, partial colectomy, cholecystectomy, carpal tunnel surgery. Smoking Status: Former smoker - Family History Maternal Family History: Family History (Last Reviewed 11/10/19 @ 18:[address] Iman Patrick MD) Father CAD (coronary artery disease) Afib Aortic valve replaced Mother Cancer Son Lupus Family History: Reports: Cancer Paternal Family History: Family History (Last Reviewed 11/10/19 @ 18:[address] Iman Patrick MD) Father CAD (coronary artery disease) Afib Aortic valve replaced Mother Cancer Son Lupus Family History: Reports: High Cholesterol, Heart Disease - Atrial fibrillation; valvular heart disease status post aVR; , Hypertension Review of Systems All systems negative except as indicated General: Denies: Chills, Fever, Sweats Eyes: Denies: Visual changes - bilaterally, Diplopia ENT: Denies: Rhinorrhea, Sore throat Cardiovascular: Denies: Chest pain Respiratory: Reports: Dyspnea on exertion. Denies: Cough Gastrointestinal: Reports: Melena. Denies: Abdominal pain, Nausea, Vomiting, Diarrhea Genitourinary: Denies: Dysuria, Hematuria, Frequency Musculoskeletal: Denies: Back pain, Extremity Pain Skin: Denies: Rash, Wounds Neurological: Denies: Headache, Weakness, Numbness Hematologic: Denies: Easy bruising, Easy bleeding Physical Exam Vital Signs/Narrative: Vital Signs Temp Pulse Resp BP Pulse Ox 11/10/19 16:27 97.8 F 65 20 H 127/69 H 97 Inital Vital Signs reviewed: Yes General: Well nourished, Well developed, No Acute Distress Head: Normocephalic, Atraumatic Eyes: Perrl, EOMI ENT: Moist mucous membranes, No rhinorrhea Neck: Supple, Nontender Cardiovascular: Regular rate, Regular rhythm, No murmurs Respiratory: No distress, CTA bilaterally, Chest nontender Abdomen: Soft, Nontender, Nondistended, Normal bowel sounds Back: Nontender, Normal Inspection Extremities: Nontender, No edema Skin: Normal color, No rash Neurological: Alert, Oriented x3, Cranial nerves II-XII grossly intact, Normal Strength, Normal Sensation Psychological: Normal affect, Normal Mood Diagnostic/Tx/Re-eval - EKG Initial EKG Interpretation: - - Rate of 65 bpm and normal sinus rhythm. Normal intervals. Normal axis. No ST elevations or depressions appreciated. No T wave abnormalities. No prior EKG for comparison. - Medical Decision Making Patient presents to the emergency department for suspected GI bleed. He is been having black tarry stools. Been having symptoms of anemia including lightheadedness, shortness of breath with exerting himself. He had abnormal outpatient lab testing. Will repeat lab testing here. Patient nontoxic on physical exam. Patient's lab work did show elevated creatinine and BUN although this is not far off from his baseline. He is anemic but this is also near his recent lab work as well. His stool was sent and came back Hemoccult positive. Did give a dose of Protonix. Given the patient's comorbidities along with very symptomatic shortness of breath with exerting himself will bring in for further evaluation and management. He otherwise has been stable throughout ED stay. He is agreeable to staying in the hospital at this time. ED Disposition - Plan for ED Patient: Disposition: Acute Care Hospital [facility] Diagnosis: Upper GI bleed, Anemia, Chronic kidney disease, Dyspnea on exertion
--- NOTE | 2019-11-10 17:15 | RAD_ITS ---
STUDY: X-RAY CHEST REASON FOR EXAM: Male, 69 years old. SENT IN BY DOCTOR FOR POSSIBLE GI BLEED. REPORTS BLACK STOOL FOR and quot;SOME TIME and quot;, FATIGUE AND INCREASING SOB OVER THE PAST SEVERAL MONTHS. TECHNIQUE: AP portable COMPARISON: 02/25/2019 FINDINGS: Mild diffuse interstitial thickening most severe in the mid and lower lung zones.. There is no demonstrated pleural abnormality. Postop change status post median sternotomy and CABG. Heart is enlarged. Normal mediastinum and ursula. Normal visualized pulmonary arteries. Normal visualized aortic arch and descending thoracic aorta. Normal visualized thoracic spine. Normal visualized ribs, clavicles, and shoulders. Incidental finding of nonspecific gynecomastia There is no demonstrated abnormality of the visualized soft tissue structures of the upper abdomen. RAD/Chest 1 View (Portable) IMPRESSION: ASHD and superimposed COPD. No acute cardiopulmonary pathology. Electronically Signed: Yeison Ross MD at 17:44 EDT , Service support ,
[2019-11-10 17:29] LABS: Absolute Lymphocyte Count 0.73 X10^3/uL (0.83-4.51); Absolute Neutrophil Count 7.4 X10^3/uL (2.0-7.7); Basophil# 0.02 X10^3/uL; Basophil% 0.2 % (0-1); Eosinophil# 0.36 X10^3/uL; Eosinophils% 3.9 % (0-5); Hematocrit 31.2 % (40-54); Hemoglobin 9.4 g/dL (13.0-16.5); Lymphocyte # 0.73 X10^3/ul (4.0); Lymphocyte % 7.9 % (19-41); Mean Corp Hgb Conc 30.1 g/dL (32-36); Mean Corpuscular Hgb 27.9 pg (27.0-32.0); Mean Corpuscular Volume 92.6 fL (80-94); Mean Platelet Vol. 9.5 fl (6.2-12.0); Monocyte# 0.54 X10^3/uL; Monocyte% 5.8 % (0-10); NRBC Flagged by Analyzer 0 % (0-5); Neutrophil # 7.38 X10^3/uL (2.7-7.7); Neutrophil % 79.6 % (47-70); Platelet Count 212 K/mm3 (150-450); RBC Distribution Width CV 17.1 % (11.6-14.6); RBC Distribution Width SD 56.9 fl (35.1-43.9); Red Blood Count 3.37 M/mm3 (4.6-6.2); White Blood Count 9.3 K/mm3 (4.4-11.0)
[2019-11-10 17:49] LABS: ALB/GLOB Ratio 0.8 RATIO (0.9-2.4); AST(SGOT) 9 U/L (15-37); Alanine Aminotransfer ALT/SGPT 18 U/L (16-61); Albumin, Serum 3.4 g/dL (3.2-5.0); Alkaline Phosphatase 82 U/L (45-117); Anion Gap 7 (5-15); BUN 87 mg/dL (7-18); BUN/Creat Ratio 32.5 RATIO (10-20); Calcium,Total 8.2 mg/dL (8.5-10.1); Chloride 113 mmol/L (98-107); Creatinine, Serum 2.68 mg/dL (0.70-1.30); EST Glomerular Filtration Rate 25 mL/min (>60); Est Glom Filt Rate - Afr Amer 31 mL/min (>60); Estimated Creatinine Clearance 25.52 ml/min; Glucose 236 mg/dL (74-106); Potassium 4.9 mmol/L (3.5-5.1); Protein, Total 7.4 g/dL (6.4-8.2); Sodium Level 144 mmol/L (136-145)
--- NOTE | 2019-11-10 18:42 | PCM.HP.STD ---
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) use of insulin (4) Presence of stent in coronary artery Status: Chronic Comment: 07/18/10, PTCA/stent to mid to distal LCx artery; 08/17/10 PTCA/stent to proximal to mid RCA; PTCA of distal RCA with DEX September 2010; PTCA with EULALIO to mid distal AV groove left CFX 08/13 (5) Essential hypertension Status: Chronic (6) Diastolic dysfunction Status: Chronic (7) S/P CABG x 3 Status: Chronic Comment: CABG-SVG to diagonal, SVG to obtuse marginal & SVG to PDA 07/12; (8) GERD (gastroesophageal reflux disease) Status: Chronic Qualifiers: Esophagitis presence: esophagitis presence not specified Qualified Code(s): K21.9 - Gastro-esophageal reflux disease without esophagitis (9) Anxiety Status: Chronic History of Present Illness Date of Admission: 11/10/19 Chief Complaint: Black tarry stool, shortness of breath, fatigue. The patient is a 69 year old M with past medical history as mentioned above was instructed by his PCP office to come to the emergency department because he was found to have low blood counts. This has been going on for couple of months. Patient mentioned that over the last several days, he has been having increasing exertional shortness of breath, comes on with any type of activity, aggravated by movement, relieved with rest, associated with profound fatigue and weakness as well as dizziness. He denied syncope or presyncope. He denied palpitation. He reported that he has been having black tarry stool over the last couple of months and sometimes, he does have dark red stools as well. He denied epistaxis, hemoptysis, hematemesis, hematochezia or hematuria. In the emergency department, his vital signs were stable, was not tachycardic, blood pressure was stable. His routine blood work was remarkable for hemoglobin of 9.4 g/dL, BUN of 87 and creatinine is 2.68 and those are chronic. LFT was unremarkable. EKG revealed normal sinus rhythm without evidence of acute segment changes or cardiac arrhythmias. Troponin was negative. Chest x-ray showed cardiomegaly, no acute findings. He is being admitted for GI bleed/melena and symptomatic anemia for evaluation and treatment. Past Medical History Past Medical History (Chronic Problems): Chronic Problems (Last Updated 11/10/19 @ 18:[address] Iman Patrick MD) Kidney disease, chronic, stage IV (GFR 15-29 ml/min) (Chronic) COPD (chronic obstructive pulmonary disease) (Chronic) Sleep apnea (Chronic) Nephrotic range proteinuria (Chronic) Pure hypercholesterolemia (Chronic) Type 2 diabetes mellitus (Chronic) Presence of stent in coronary artery (Chronic ~08/25/14) 07/18/10, PTCA/stent to mid to distal LCx artery; 08/17/10 PTCA/stent to proximal to mid RCA; PTCA of distal RCA with DEX September 2010; PTCA with EULALIO to mid distal AV groove left CFX 08/13 Essential hypertension (Chronic) Nonrheumatic aortic (valve) stenosis (Chronic) Nonspecific abnormal unspecified cardiovascular function study (Chronic) Diastolic dysfunction (Chronic) Other [facility] (current[facility] drug therapy (Chronic) Atherosclerotic heart disease of [place] coronary artery without angina pectoris (Chronic) S/P multivessel PTCA/stent and subsequent CABG with SVG to LCx, RCA and diagonal branch with subsequent SVG graft closure to the LCx and diagonal branch; S/P CABG x 3 (Chronic ~07/21/12) CABG-SVG to diagonal, SVG to obtuse marginal & SVG to PDA 07/12; GERD (gastroesophageal reflux disease) (Chronic) Anxiety (Chronic) Medical History: Medical History (Last Updated 11/10/19 @ 18:[address] Iman Patrick MD) COPD (chronic obstructive pulmonary disease) (Chronic) J44.9 Sleep apnea (Chronic) G47.30 Pure hypercholesterolemia (Chronic) E78.00 Type 2 diabetes mellitus (Chronic) E11.9 Presence of stent in coronary artery (Chronic) Onset Date: ~08/25/14 Z95.5 07/18/10, PTCA/stent to mid to distal LCx artery; 08/17/10 PTCA/stent to proximal to mid RCA; PTCA of distal RCA with DEX September 2010; PTCA with EULALIO to mid distal AV groove left CFX 08/13 Essential hypertension (Chronic) I10 Nonrheumatic aortic (valve) stenosis (Chronic) I35.0 Diastolic dysfunction (Chronic) I51.9 Atherosclerotic heart disease of [place] coronary artery without angina pectoris (Chronic) I25.10 S/P multivessel PTCA/stent and subsequent CABG with SVG to LCx, RCA and diagonal branch with subsequent SVG graft closure to the LCx and diagonal branch; Aortic valve disease (Inactive) I35.9 Coronary atherosclerosis of [place] coronary artery (Inactive) I25.10 Diabetes mellitus (Inactive) E11.9 HTN (hypertension) (Inactive) I10 Allergies carvedilol [From Coreg] Allergy (Severe, Verified 11/10/19 16:26) vomiting sertraline HCl [From Zoloft] Allergy (Verified 11/10/19 16:26) Unknown valsartan [From Diovan] Adverse Reaction (Severe, Verified 11/10/19 16:26) Possible angioedema, throat swelling bupropion HCl [From Wellbutrin] Adverse Reaction (Verified 11/10/19 16:26) gets mean citalopram Adverse Reaction (Verified 11/10/19 16:26) Other gabapentin Adverse Reaction (Verified 11/10/19 16:26) Other Home Medications: Ambulatory Orders Medication Instructions Recorded Nitroglycerin (INPATIENT USE) 0.4 mg SUBLINGUAL Q5M PRN 10/27/13 [Nitrostat] coenzyme Q10 400 mg capsule 400 mg PO BID #90 cap 09/13/17 berberine-herbal comb no.18 1 cap PO BID cap 02/24/18 Insulin Glargine [Lantus SoloStar 50 units SUBCUT BID #5 pen 12/23/18 Pen] metoprolol tartrate 50 mg tablet 50 mg PO BID #180 tab 02/17/19 Allopurinol 100 mg PO DAILY 02/25/19 Aspirin E.C. [Ecotrin] 81 mg PO DAILY@0800 02/25/19 Astaxanthin 4 mg PO DAILY 02/25/19 Fluoxetine HCl 40 mg PO DAILY 02/25/19 Insulin Aspart [Novolog Flexpen] 36 units SUBCUT TIDCM 02/25/19 isosorbide mononitrate 30 mg 30 mg PO DAILY #90 tab 05/04/19 tablet,extended release 24 hr amlodipine 5 mg tablet 5 mg PO BID #180 tab 05/25/19 rosuvastatin 5 mg tablet 5 mg PO DAILY 06/04/19 furosemide 80 mg tablet 80 mg PO BID #180 tab 07/01/19 Surgical History: Surgical History (Last Reviewed 06/04/19 @ 10:20 by Pili May) S/P CABG x 3 (Chronic) Onset Date: ~07/21/12 Z95.1 CABG-SVG to diagonal, SVG to obtuse marginal & SVG to PDA 07/12; History of bilateral knee replacement Z96.653 History of carpal tunnel repair Z98.890 History of cholecystectomy Z90.49 History of partial colectomy Z90.49 History of repair of rotator cuff Z98.890 Presence of coronary angioplasty implant and graft Z95.5 07/18/10, PTCA/stent to mid to distal LCx artery; 08/17/10 PTCA/stent to proximal to mid RCA; PTCA of distal RCA with DEX September 2010; PTCA with EULALIO to mid distal AV groove left CFX 08/13 S/P PTCA (percutaneous transluminal coronary angioplasty) (Inactive) Z98.61 07/18/10, PTCA/stent to mid to distal LCx artery; 08/17/10 PTCA/stent to proximal to mid RCA; PTCA of distal RCA with DEX September 2010; PTCA with EULALIO to mid distal AV groove left CFX 08/13 Surgical History: angioplasty, arthroscopy, knee, coronary bypass surgery, - - Patient status post CABG x3, serial PCI, bilateral total knee replacement, rotator cuff repair, partial colectomy, cholecystectomy, carpal tunnel surgery. Psychiatric History: No pertinent psych hx Lives: Spouse/ Significant Other Smoking Status: Former smoker Alcohol: None Drugs: None - *Family History Maternal Family History: Family History (Last Reviewed 11/10/19 @ 18:[address] Iman Patrick MD) Father CAD (coronary artery disease) Afib Aortic valve replaced Mother Cancer Son Lupus Paternal Family History: Family History (Last Reviewed 11/10/19 @ 18:[address] Iman Patrick MD) Father CAD (coronary artery disease) Afib Aortic valve replaced Mother Cancer Son Lupus Review of Systems Constitutional: Reports: Weakness, Fatigue. Denies: Anorexia, Chills, Fever Eyes: Denies: Blurred vision, Double vision, Drainage, Redness HEENT: Denies: Difficulty Hearing, Ear Pain, Eye Pain, Nasal Congestion, Sore Throat Cardiovascular: Reports: Light Headedness. Denies: Chest Pain, Claudication, Chest Pressure, Chest Tightness, Heaviness, Palpitations, Syncope Respiratory: Reports: Shortness of Breath, Shortness of breath upon exertion. Denies: Cough, Hemoptysis, Pleuritic Pain, Sputum production, Wheezing Gastrointestinal: Reports: Melena. Denies: Abdominal Pain, Constipation, Diarrhea, Hematochezia, Nausea, Vomiting Genitourinary: Denies: Dysuria, Frequency, Hematuria Musculoskeletal: Denies: Arm Pain, Back Pain, Foot Pain Skin: Denies: Dryness, Rash Neurological: Denies: Balance problems, Double vision, Change in Speech, Slurred speech, Confusion, Headaches, Incoordination Psychiatric: Denies: Anxiety, Depression Endocrine: Denies: Change in Body Habitus, Polydipsia, Polyuria VTE Information - Inpt Only VTE Present on Admission: No VTE Mechan Device Prophylaxis: SCD's VTE Pharm Prophylaxis ordered?: No - Physical Exam Vitals/I&O's: Vital Signs Temp Pulse Resp BP Pulse Ox 97.8 F 65 20 H 127/69 H 97 11/10/19 16:27 11/10/19 16:27 11/10/19 16:27 11/10/19 16:27 11/10/19 16:27 Oxygen Delivery Method Room Air Weight: 211 lb 3.245 oz Body Mass Index (BMI) 32.1 Finger Stick Blood Glucose 269 General: Alert, Oriented x3, Cooperative, No apparent distress HEENT: Atraumatic, PERRLA, EOMI, Normocephalic Oral: Moist Mucosa, No Gingival or Mucosal Lesions/ Ulcerations Neck: Supple, No JVD, Negative Carotid Bruits, Trachea Midline, Thyroid Normal Size and Texture Lungs: Clear to auscultation, Normal air movement, No rhonchi, No wheeze, No rales, Diminished Cardiovascular: Regular rate, Regular Rhythm, Normal S1, Normal S2, PMI Normal Abdomen: Bowel Sounds Present, Soft, Non Tender, Non-Distended, No Hepato-splenomegaly, Obese Extremities: No clubbing, No cyanosis, Edema Skin: No rashes, No breakdown Lymphatic: No Cervical, Supraclavicular, or Inguinal Adenopathy Neurological: Cranial nerves II-XII grossly intact, Motor Exam 5/5 strength throughout Psych/Mental Status: Normal Affect, Appropriate, Alert and oriented to time, place, person, mood and affect Microbiology Past 72 Hours 11/10/19 18:10 Stool Stool Occult Blood (JOSE RAMON) - Final Occult Blood Positive Laboratory Results 11/10/19 17:00: WBC 9.3, RBC 3.37 L, Hgb 9.4 L, Hct 31.2 L, MCV 92.6, MCH 27.9, MCHC 30.1 L, RDW Std Deviation 56.9 H, RDW Coeff of Judi 17.1 H, Plt Count 212, MPV 9.5, Immature Gran % (Auto) 2.600 H, Neut % (Auto) 79.6 H, Lymph % (Auto) 7.9 L, [place] % (Auto) 5.8, Eos % (Auto) 3.9, Baso % (Auto) 0.2, Absolute Neuts (auto) 7.4, Absolute Lymphs (auto) 0.73 L, Nucleated RBC % 0 11/10/19 17:00: Sodium 144, Potassium 4.9, Chloride 113 H, Carbon Dioxide 24.0, Anion Gap 7, BUN 87 H, Creatinine 2.68 H, Estim Creat Clear Calc 25.52, Est GFR (MDRD) Af Amer 31 L, Est GFR (MDRD) Non-Af 25 L, BUN/Creatinine Ratio 32.5 H, Glucose 236 H, Calcium 8.2 L, Total Bilirubin 0.50, AST 9 L, ALT 18, Alkaline Phosphatase 82, Troponin I < 0.015, Total Protein 7.4, Albumin 3.4, Globulin 4.0, Albumin/Globulin Ratio 0.8 L 11/10/19 17:00: Blood Type Pending, Antibody Screen Pending Clinical Impression(s) from Imaging Studies Chest X-Ray 11/10/19 17:15 IMPRESSION: ASHD and superimposed COPD. No acute cardiopulmonary pathology. Electronically Signed: Yeison Ross MD at 17:44 EDT , Service support , Assessment/Plan This is a 69 years old male patient presented to the emergency room because of abnormal labs, symptoms of shortness of breath, weakness and fatigue as well as melena and he was found to have GI bleed as well as symptomatic anemia and is being admitted for evaluation and treatment. #1 melena/GI bleed: Stool is positive for occult blood. Likely upper GI bleed. Vital signs are stable, no tachycardia. Plan: Admit to PCU, cardiac monitoring, H&H every 6 hours, type and crossmatch 1 unit of packed RBCs, transfuse if hemoglobin less than 8 g/dL, general surgery consult, start IV Protonix drip, gentle IV fluids, Tylenol PRN, keep on n.p.o. starting midnight, IV Zofran PRN, repeat CBC and BMP tomorrow morning, PT OT evaluation and treatment when appropriate. #2 symptomatic anemia: Patient does have chronic anemia. Hemoccult has been around 8 to 11 g/dL over the last couple of years. Admission globin is 9.4 g/dL, close to baseline. He does have symptoms of shortness of breath on exertion, fatigue, weakness and lightheadedness. EKG reviewed, no acute ischemic changes or cardiac arrhythmias. Troponin is negative. Plan: H&H every 6 hours, type and crossmatch 1 unit of packed RBCs, transfuse if hemoglobin less than 8 g/dL, repeat CBC tomorrow morning. #3 Stage IV chronic kidney disease: Baseline level has been around 2.5 up to 5. Admission creatinine is 2.68, stable at baseline. Plan to monitor, gentle IV fluids in addition, repeat BMP tomorrow morning. #4 CAD status post CABG and stents: EKG reviewed, no acute segment changes. Troponin is negative. Continue metoprolol, statins and nitrates, hold aspirin for now. #5 type 2 diabetes mellitus: ADA diet, n.p.o. starting midnight, continue home doses of Lantus and NovoLog on home medication list updated, Accu-Cheks, insulin sliding scale. #6 COPD: Clinically stable, pulse ox is maintained on room air. Chest x-ray reviewed. Plan for DuoNeb every 6 hours, albuterol PRN. #7 GERD: Start IV Protonix drip. #8 hypertension: Blood pressure stable, continue home medications when home medications list updated. #9 chronic diastolic CHF: Clinically stable, compensated. Plan for gentle IV fluids for hydration, monitor volume status. #10 DVT prophylaxis: SCDs. This note was generated with [employer] dictation software. It may contain incorrect words, spelling, and punctuation that were not noted in checking the note before signing. Inpatient E&M: 51756 Init Hosp L3
[2019-11-10] MEDS: 0.9% Normal Saline 1,000 ML 75 ML IV (20:14)
[2019-11-10 20:57] LABS: International Normalized Ratio 1.1; Prothrombin Time (Protime)PT. 13.9 SECONDS (11.7-14.9)
[2019-11-10] MEDS: Insulin Lispro 100 UNIT/ML INSULN.PEN SC (21:43)
[2019-11-10 21:46] LABS: Bedside Glucose 209 mg/dL (70-110)
[2019-11-10 22:56] LABS: Hematocrit 29.6 % (40-54); Hemoglobin 8.9 g/dL (13.0-16.5)
[2019-11-11] VITALS (7 sets, daily range): BP systolic 129–155; BP diastolic 61–67; PULSE 60–70; RESP 10–20; TEMP 36.8; O2SAT 93–98
[2019-11-11 05:09] LABS: Absolute Lymphocyte Count 0.58 X10^3/uL (0.83-4.51); Absolute Neutrophil Count 6.8 X10^3/uL (2.0-7.7); Basophil# 0.02 X10^3/uL; Basophil% 0.2 % (0-1); Eosinophil# 0.28 X10^3/uL; Eosinophils% 3.3 % (0-5); Hematocrit 28.4 % (40-54); Hemoglobin 8.4 g/dL (13.0-16.5); Lymphocyte # 0.58 X10^3/ul (4.0); Lymphocyte % 6.9 % (19-41); Mean Corp Hgb Conc 29.6 g/dL (32-36); Mean Corpuscular Hgb 27.5 pg (27.0-32.0); Mean Corpuscular Volume 93.1 fL (80-94); Mean Platelet Vol. 9.5 fl (6.2-12.0); Monocyte% 7.2 % (0-10); NRBC Flagged by Analyzer 0 % (0-5); Neutrophil # 6.76 X10^3/uL (2.7-7.7); POSITIVE DIFFERENTIAL YES; Platelet Count 164 K/mm3 (150-450); Red Blood Count 3.05 M/mm3 (4.6-6.2); White Blood Count 8.4 K/mm3 (4.4-11.0)
[2019-11-11 05:20] LABS: Anion Gap 8 (5-15); BUN 89 mg/dL (7-18); BUN/Creat Ratio 33.2 RATIO (10-20); Calcium,Total 7.5 mg/dL (8.5-10.1); Chloride 115 mmol/L (98-107); Creatinine, Serum 2.68 mg/dL (0.70-1.30); EST Glomerular Filtration Rate 25 mL/min (>60); Est Glom Filt Rate - Afr Amer 31 mL/min (>60); Estimated Creatinine Clearance 26.38 ml/min; Glucose 230 mg/dL (74-106); Potassium 4.8 mmol/L (3.5-5.1); Sodium Level 144 mmol/L (136-145)
[2019-11-11 05:35] LABS: Differential Indicated SCAN CRITERIA MET
[2019-11-11 06:04] LABS: Anisocytosis RARE; Hypochromasia 1+; Platelet Estimate ADEQUATE (ADEQ); Polychromasia RARE
[2019-11-11] MEDS: Insulin Lispro 100 UNIT/ML INSULN.PEN SC (06:40)
[2019-11-11 06:45] LABS: Bedside Glucose 210 mg/dL (70-110)
--- NOTE | 2019-11-11 08:03 | CON.PCM_ITS ---
Problem List (1) Upper GI bleed Status: Acute Reason for Consult Date of Consultation: 11/11/19 History of Present Illness: The patient is a 69 year old M with past medical history as mentioned above was instructed by his PCP office to come to the emergency department because he was found to have low blood counts. This has been going on for couple of months. Patient mentioned that over the last several days, he has been having increasing exertional shortness of breath, comes on with any type of activity, aggravated by movement, relieved with rest, associated with profound fatigue and weakness as well as dizziness. He denied syncope or presyncope. He denied palpitation. He reported that he has been having black tarry stool over the last couple of months and sometimes, he does have dark red stools as well. He denied epistaxis, hemoptysis, hematemesis, hematochezia or hematuria. In the emergency department, his vital signs were stable, was not tachycardic, blood pressure was stable. His routine blood work was remarkable for hemoglobin of 9.4 g/dL, BUN of 87 and creatinine is 2.68 and those are chronic. LFT was unremarkable. EKG revealed normal sinus rhythm without evidence of acute segment changes or cardiac arrhythmias. Troponin was negative. Chest x-ray showed cardiomegaly, no acute findings. He is being admitted for GI bleed/melena and symptomatic anemia for evaluation and treatment. While the patient has been in the hospital he has had no further melanotic stools. He is not complaining of any abdominal pain. Past Medical History Past Medical History (Chronic Problems): Chronic Problems (Last Updated 11/10/19 @ 18:[address] Iman Patrick MD) Chronic kidney disease (Chronic) Kidney disease, chronic, stage IV (GFR 15-29 ml/min) (Chronic) COPD (chronic obstructive pulmonary disease) (Chronic) Sleep apnea (Chronic) Nephrotic range proteinuria (Chronic) Pure hypercholesterolemia (Chronic) Type 2 diabetes mellitus (Chronic) Presence of stent in coronary artery (Chronic ~08/25/14) 07/18/10, PTCA/stent to mid to distal LCx artery; 08/17/10 PTCA/stent to proximal to mid RCA; PTCA of distal RCA with DEX September 2010; PTCA with EULALIO to mid distal AV groove left CFX 08/13 Essential hypertension (Chronic) Nonrheumatic aortic (valve) stenosis (Chronic) Nonspecific abnormal unspecified cardiovascular function study (Chronic) Diastolic dysfunction (Chronic) Other superintendent terminal (current) drug therapy (Chronic) Atherosclerotic heart disease of [place] coronary artery without angina pectoris (Chronic) S/P multivessel PTCA/stent and subsequent CABG with SVG to LCx, RCA and diagonal branch with subsequent SVG graft closure to the LCx and diagonal branch; S/P CABG x 3 (Chronic ~07/21/12) CABG-SVG to diagonal, SVG to obtuse marginal & SVG to PDA 07/12; GERD (gastroesophageal reflux disease) (Chronic) Anxiety (Chronic) Medical History: Medical History (Last Reviewed 11/11/19 @ 08:[address] Seth Michael MD) COPD (chronic obstructive pulmonary disease) (Chronic) J44.9 Sleep apnea (Chronic) G47.30 Pure hypercholesterolemia (Chronic) E78.00 Type 2 diabetes mellitus (Chronic) E11.9 Presence of stent in coronary artery (Chronic) Onset Date: ~08/25/14 Z95.5 07/18/10, PTCA/stent to mid to distal LCx artery; 08/17/10 PTCA/stent to proximal to mid RCA; PTCA of distal RCA with DEX September 2010; PTCA with EULALIO to mid distal AV groove left CFX 08/13 Essential hypertension (Chronic) I10 Nonrheumatic aortic (valve) stenosis (Chronic) I35.0 Diastolic dysfunction (Chronic) I51.9 Atherosclerotic heart disease of [place] coronary artery without angina pectoris (Chronic) I25.10 S/P multivessel PTCA/stent and subsequent CABG with SVG to LCx, RCA and diagonal branch with subsequent SVG graft closure to the LCx and diagonal branch; Aortic valve disease (Inactive) I35.9 Coronary atherosclerosis of [place] coronary artery (Inactive) I25.10 Diabetes mellitus (Inactive) E11.9 HTN (hypertension) (Inactive) I10 Allergies carvedilol [From Coreg] Allergy (Severe, Verified 11/10/19 16:26) vomiting sertraline HCl [From Zoloft] Allergy (Verified 11/10/19 16:26) Unknown valsartan [From Diovan] Adverse Reaction (Severe, Verified 11/10/19 16:26) Possible angioedema, throat swelling bupropion HCl [From Wellbutrin] Adverse Reaction (Verified 11/10/19 16:26) gets mean citalopram Adverse Reaction (Verified 11/10/19 16:26) Other gabapentin Adverse Reaction (Verified 11/10/19 16:26) Other Home Medications: Ambulatory Orders Medication Instructions Recorded Nitroglycerin (INPATIENT USE) 0.4 mg SUBLINGUAL Q5M PRN 10/27/13 [Nitrostat] berberine-herbal comb no.18 2 cap PO BID cap 02/24/18 Allopurinol 100 mg PO DAILY 02/25/19 Aspirin E.C. [Ecotrin] 81 mg PO DAILY@0800 02/25/19 Astaxanthin 4 mg PO DAILY 02/25/19 Fluoxetine HCl 40 mg PO DAILY 02/25/19 Insulin Aspart [Novolog Flexpen] 36 units SUBCUT TIDCM 02/25/19 isosorbide mononitrate 30 mg 30 mg PO DAILY #90 tab 05/04/19 tablet,extended release 24 hr amlodipine 5 mg tablet 5 mg PO BID #180 tab 05/25/19 Furosemide [Lasix] 80 mg PO BID 11/10/19 Insulin Glargine [Lantus SoloStar 40 units SUBCUT BID 11/10/19 Pen] Metoprolol Tartrate [Lopressor 50 mg PO BID 11/10/19 (beta yana)] Ubidecarenone [Co Q-10] 400 mg PO BID 11/10/19 Surgical History: Surgical History (Last Reviewed 11/11/19 @ 08:[address] Seth Michael MD) S/P CABG x 3 (Chronic) Onset Date: ~07/21/12 Z95.1 CABG-SVG to diagonal, SVG to obtuse marginal & SVG to PDA 07/12; History of bilateral knee replacement Z96.653 History of carpal tunnel repair Z98.890 History of cholecystectomy Z90.49 History of partial colectomy Z90.49 History of repair of rotator cuff Z98.890 Presence of coronary angioplasty implant and graft Z95.5 07/18/10, PTCA/stent to mid to distal LCx artery; 08/17/10 PTCA/stent to proximal to mid RCA; PTCA of distal RCA with DEX September 2010; PTCA with EULALIO to mid distal AV groove left CFX 08/13 S/P PTCA (percutaneous transluminal coronary angioplasty) (Inactive) Z98.61 07/18/10, PTCA/stent to mid to distal LCx artery; 08/17/10 PTCA/stent to proximal to mid RCA; PTCA of distal RCA with DEX September 2010; PTCA with EULALIO to mid distal AV groove left CFX 08/13 Surgical History: angioplasty, arthroscopy, knee, coronary bypass surgery, - - Patient status post CABG x3, serial PCI, bilateral total knee replacement, rotator cuff repair, partial colectomy, cholecystectomy, carpal tunnel surgery. Psychiatric History: No pertinent psych hx Lives: Spouse/ Significant Other Smoking Status: Former smoker Alcohol: None Drugs: None - *Family History Maternal Family History: Family History (Last Reviewed 11/10/19 @ 18:[address] Iman Patrick MD) Father CAD (coronary artery disease) Afib Aortic valve replaced Mother Cancer Son Lupus History Items: Cancer Paternal Family History: Family History (Last Reviewed 11/10/19 @ 18:[address] Iman Patrick MD) Father CAD (coronary artery disease) Afib Aortic valve replaced Mother Cancer Son Lupus History Items: High Cholesterol, Heart Disease - Atrial fibrillation; valvular heart disease status post aVR; , Hypertension Review of Systems Constitutional: Denies: Chills, Fever, Weight Change Cardiovascular: Denies: Chest Pain, Chest Pressure, Chest Tightness, Palpitations Respiratory: Denies: Cough, Hemoptysis, Shortness of breath at rest, Shortness of breath upon exertion, Wheezing Gastrointestinal: Denies: Abdominal Pain, Constipation, Diarrhea, Hematemesis, Nausea, Melena, Vomiting Patient Problems: Active and Suspected Problems (Last Updated 11/10/19 @ 18:[address] Iman Patrick MD) Upper GI bleed (Acute) Anemia (Acute) Dyspnea on exertion (Acute) - Physical Exam Vitals/I&O's: Vital Signs Temp Pulse Resp BP Pulse Ox 98.2 F 62 10 L 129/61 H 94 11/11/19 03:35 11/11/19 07:54 11/11/19 07:54 11/11/19 03:35 11/11/19 07:54 Oxygen Delivery Method CPAP Weight: 254 lb 3.088 oz Body Mass Index (BMI) 37.5 Finger Stick Blood Glucose 269 Intake and Output for Last 24 Hours 11/09/19 11/10/19 11/11/19 23:59 23:59 23:59 Intake Total 697.92 / 697.92 517.58 / 517.58 Output Total 400 / 400 Balance 297.92 / 297.92 517.58 / 517.58 General: Alert, Oriented x3 Neck: Supple, No JVD Lungs: Clear to auscultation Cardiovascular: Regular rate, Regular Rhythm, No murmurs Extremities: No clubbing, No cyanosis, No edema Microbiology Past 72 Hours 11/10/19 18:10 Stool Stool Occult Blood (JOSE RAMON) - Final Occult Blood Positive Laboratory Results 11/10/19 17:00: WBC 9.3, RBC 3.37 L, Hgb 9.4 L, Hct 31.2 L, MCV 92.6, MCH 27.9, MCHC 30.1 L, RDW Std Deviation 56.9 H, RDW Coeff of Judi 17.1 H, Plt Count 212, MPV 9.5, Immature Gran % (Auto) 2.600 H, Neut % (Auto) 79.6 H, Lymph % (Auto) 7.9 L, Coke % (Auto) 5.8, Eos % (Auto) 3.9, Baso % (Auto) 0.2, Absolute Neuts (auto) 7.4, Absolute Lymphs (auto) 0.73 L, Nucleated RBC % 0 11/10/19 17:00: Sodium 144, Potassium 4.9, Chloride 113 H, Carbon Dioxide 24.0, Anion Gap 7, BUN 87 H, Creatinine 2.68 H, Estim Creat Clear Calc 25.52, Est GFR (MDRD) Af Amer 31 L, Est GFR (MDRD) Non-Af 25 L, BUN/Creatinine Ratio 32.5 H, Glucose 236 H, Calcium 8.2 L, Total Bilirubin 0.50, AST 9 L, ALT 18, Alkaline Phosphatase 82, Troponin I < 0.015, Total Protein 7.4, Albumin 3.4, Globulin 4.0, Albumin/Globulin Ratio 0.8 L 11/10/19 17:00: Blood Type B POSITIVE, Antibody Screen NEGATIVE 11/10/19 17:00: PT 13.9, INR 1.1 11/10/19 17:00: Crossmatch See Detail 11/10/19 21:38: POC Glucose 209 H 08/11/20 22:40: Hgb 8.9 L, Hct 29.6 L 11/11/19 04:54: WBC 8.4, RBC 3.05 L, Hgb 8.4 L, Hct 28.4 L, MCV 93.1, MCH 27.5, MCHC 29.6 L, RDW Std Deviation 57.0 H, RDW Coeff of Judi 17.0 H, Plt Count 164, MPV 9.5, Immature Gran % (Auto) 1.400 H, Neut % (Auto) 81.0 H, Lymph % (Auto) 6.9 L, Coke % (Auto) 7.2, Eos % (Auto) 3.3, Baso % (Auto) 0.2, Absolute Neuts (auto) 6.8, Absolute Lymphs (auto) 0.58 L, Nucleated RBC % 0, Platelet Estimate ADEQUATE, Polychromasia RARE, Hypochromasia 1+, Anisocytosis RARE 11/11/19 04:54: Sodium 144, Potassium 4.8, Chloride 115 H, Carbon Dioxide 21.0, Anion Gap 8, BUN 89 H, Creatinine 2.68 H, Estim Creat Clear Calc 26.38, Est GFR (MDRD) Af Amer 31 L, Est GFR (MDRD) Non-Af 25 L, BUN/Creatinine Ratio 33.2 H, Glucose 230 H, Calcium 7.5 L 11/11/19 06:38: POC Glucose 210 H Current Medications Acetaminophen (Tylenol) 650 mg PO Q6H PRN PRN PRN Reason: Pain Score 1-10/Temp > 100.7 F Sodium Chloride () 1,000 mls @ 75 mls/hr IV .[id number] [facility] Last Infusion: 11/11/19 06:00 Dose: 75 mls/hr Documented by: Pantoprazole Sodium 80 mg/ (Sodium Chloride) 100 mls @ 10 mls/hr CONT INF Q10H [facility] Last Admin: 11/11/19 06:03 Dose: 10 mls/hr Documented by: Sodium Chloride () 250 mls @ 15 mls/hr IV .[id number] PRN PRN Reason: Saline Flush Sodium Chloride () 250 mls @ 15 mls/hr IV .[id number] PRN PRN Reason: Additional IVPB Infusion Insulin Human Lispro (Humalog Kwikpen (Bkc)) 0 unit SC ACHS [facility]; Protocol Last Admin: 11/11/19 06:40 Dose: 2 u Documented by: Ondansetron HCl (Zofran) 4 mg IV Q8H PRN PRN PRN Reason: NAUSEA/VOMITING Sodium Chloride () 10 - 40 ml IV UD PRN PRN Reason: SALINE FLUSH Zolpidem Tartrate (Ambien (Generic)) 5 mg PO QHS PRN PRN PRN Reason: INSOMNIA Assessment/Plan All Active Problems (Last Updated 11/10/19 @ 18:[address] Iman Patrick MD) Upper GI bleed (Acute) Anemia (Acute) Dyspnea on exertion (Acute) At the present time I think that we will more than likely be able to discharge him on acid suppression medications. I will see him back in the office in 1 week and get him scheduled for an outpatient EGD after he has his COVID testing. Office Visits / Consults: [id number] IP Consult L3
[2019-11-11 08:34] LABS: Iron 41 ug/dL (65-175); Iron Binding Capacity,Total 295 ug/dL (250-450); PERCENT IRON SATURATION 13.9 % (15.0-55.0)
--- NOTE | 2019-11-11 08:46 | DCINST_ITS ---
- Discharge Diagnoses Current Active Problems: Current Active and Chronic Problems (Last Reviewed 11/11/19 @ 08:[address] Seth Michael MD) Upper GI bleed (Acute) Anemia (Acute) Chronic kidney disease (Chronic) Dyspnea on exertion (Acute) Kidney disease, chronic, stage IV (GFR 15-29 ml/min) (Chronic) You will use the following diet at home:: Calorie/Carbohydrate Controlled (specify 1200, 1400, etc) - 1800 guillaume Your food should be the consistency of: Regular Your liquids should be the consistency of: Regular/Thin Discharge Activity: Return to Normal Activity Weight Bearing Status: Full weight bearing Allergies/Adverse Reactions: Allergies carvedilol [From Coreg] Allergy (Severe, Verified 11/10/19 16:26) vomiting sertraline HCl [From Zoloft] Allergy (Verified 11/10/19 16:26) Unknown valsartan [From Diovan] Adverse Reaction (Severe, Verified 11/10/19 16:26) Possible angioedema, throat swelling bupropion HCl [From Wellbutrin] Adverse Reaction (Verified 11/10/19 16:26) gets mean citalopram Adverse Reaction (Verified 11/10/19 16:26) Other gabapentin Adverse Reaction (Verified 11/10/19 16:26) Other Medications to take at Discharge Nitroglycerin (INPATIENT USE) [Nitrostat] 0.4 mg SUBLINGUAL Q5M PRN 10/27/13 berberine-herbal comb no.18 2 cap PO BID cap 02/24/18 Allopurinol 100 mg PO DAILY 02/25/19 Aspirin E.C. [Ecotrin] 81 mg PO DAILY@0800 02/25/19 Astaxanthin 4 mg PO DAILY 02/25/19 Fluoxetine HCl 40 mg PO DAILY 02/25/19 Insulin Aspart [Novolog Flexpen] 36 units SUBCUT TIDCM 02/25/19 isosorbide mononitrate 30 mg tablet,extended release 24 hr 30 mg PO DAILY #90 tab 05/04/19 amlodipine 5 mg tablet 5 mg PO BID #180 tab 05/25/19 Furosemide [Lasix] 80 mg PO BID 11/10/19 Insulin Glargine [Lantus SoloStar Pen] 40 units SUBCUT BID 11/10/19 Metoprolol Tartrate [Lopressor (beta yana)] 50 mg PO BID 11/10/19 Ubidecarenone [Co Q-10] 400 mg PO BID 11/10/19 Ferrous Sulfate 325 mg PO BIDCM #60 tab 11/11/19 Pantoprazole Sodium [Protonix] 40 mg PO DAILY #30 tab 11/11/19 The following prescriptions were given: Ferrous Sulfate 325 mg PO BIDCM #60 tab Transmission Status: Pending to [facility] Pantoprazole Sodium [Protonix] 40 mg PO DAILY #30 tab Transmission Status: Pending to [facility] Primary Care Physician: Davon Lemus MD [Primary Care Provider] - Please follow up with your Primary Care Physician in: as scheduled Test Results: Test results from this visit will be discussed in further detail at your follow- up appointment, if applicable. Please Follow Up With: Seth Michael MD When: in one week
--- NOTE | 2019-11-11 09:30 | CASEMGMT ---
Addendum entered by Lynn Gibson 11/11/19 16:09: 1215: Script for walker obtained and faxed to [facility]. Original Note: RN CM CLAIM EXAMINER CM to room to meet with patient for initial transition planning/care coordination assessment. RN CM introduced self and role at [facility]. Pt voices understanding and consents to assessment at this time. Pt sitting up in bed in no distress at this time. Pt is A/O at this time and answers all questions appropriately. Care providers, pharmacy, and demographics verified/updated at this time. PCP: Dr Lemus Specialists: Dr Green--cardiology, Dr Reid--pulmonology Preferred Pharmacy: [facility] [place] Insurance: [facility], [facility], [place] benefits Prescription Benefit: [place] only Living Will/HPOA: Has both LW and Healthcare POA, who is his , Diana. Both are on e-file @ [facility] LNOK: , Diana. 2 sons. Living Arrangements: Lives w/his in one-story home w/2 steps to enter. Independent w/ADL's. /pt share home mgmt tasks. Transportation: Pt states drives self and states no transportation concerns at this time. also drives DME: States has the following DME: CPAP thru [facility], cane. Pt states he feels he needs a walker. Given list of local DME companies. Agreeable to [facility]. HHC/SNF: Hx of [place] [facility]. Denies need for HHC or OP therapy. Pt wishes to return home and states has no concerns with going home at time of discharge. CM to follow for any further discharge planning/needs. Pt voices no further concerns/needs at this time. Advised pt to ask for CM if any further questions/concerns/needs arise. Voices understanding. PLAN: Home. Sabra GARCIA RN, CM
--- NOTE | 2019-11-11 09:53 | CASEMGMT ---
MARCO A ASTORGA NOTE: Pt being discharged. H/P and discharge instructions faxed to [facility] at this time. Sabra GARCIA RN CM
--- NOTE | 2019-11-11 12:10 | PHA.DC.MC ---
Pharmacy Service has performed discharge medication reconciliation and counseling for this patient. 1. PANTOPRAZOLE 40MG PO BID 2. FERROUS SULFATE 325MG PO BIDCM The patient's discharge medication list was reviewed for discrepancies and discrepancies were resolved. Clarified with Dr. Goncalves, pt to continue aspirin d/t stents. Home Medications Nitroglycerin (INPATIENT USE) [Nitrostat] 0.4 mg SUBLINGUAL Q5M PRN 10/27/13 berberine-herbal comb no.18 2 cap PO BID cap 02/24/18 Allopurinol 100 mg PO DAILY 02/25/19 Aspirin E.C. [Ecotrin] 81 mg PO DAILY@0800 02/25/19 Astaxanthin 4 mg PO DAILY 02/25/19 Fluoxetine HCl 40 mg PO DAILY 02/25/19 Insulin Aspart [Novolog Flexpen] 36 units SUBCUT TIDCM 02/25/19 isosorbide mononitrate 30 mg tablet,extended release 24 hr 30 mg PO DAILY #90 tab 05/04/19 amlodipine 5 mg tablet 5 mg PO BID #180 tab 05/25/19 Furosemide [Lasix] 80 mg PO BID 11/10/19 Insulin Glargine [Lantus SoloStar Pen] 40 units SUBCUT BID 11/10/19 Metoprolol Tartrate [Lopressor (beta yana)] 50 mg PO BID 11/10/19 Ubidecarenone [Co Q-10] 400 mg PO BID 11/10/19 Ferrous Sulfate 325 mg PO BIDCM #60 tab 11/11/19 Pantoprazole Sodium [Protonix] 40 mg PO DAILY #30 tab 11/11/19 The patient was counseled on the following discharge medications and changes in medications for homegoing were reviewed. The Reason for Use, instructions for use, and potential side effects were reviewed for all new medications. The patient's questions regarding all of their medications were answered. The patient was able to verbally demonstrate an understanding of their discharge medications. Patient counseled by clinical pharmacy specialist, Mita.
--- NOTE | 2019-11-11 15:40 | PCM.DC.SUM ---
Discharge Date and Diagnosis Date of Admission: 11/10/19 Date of Discharge: 11/11/19 - Primary Discharge Diagnosis Acute Problems: #1 melena-etiology unclear #2 chronic anemia secondary to iron deficiency-exact etiology unclear #3 chronic kidney disease stage IV #4 type 2 diabetes #5 atherosclerotic heart disease - Secondary Discharge Diagnosis Chronic Problems: Chronic Problems (Last Reviewed 11/11/19 @ 08:[address] Seth Michael MD) Chronic kidney disease (Chronic) Kidney disease, chronic, stage IV (GFR 15-29 ml/min) (Chronic) COPD (chronic obstructive pulmonary disease) (Chronic) Sleep apnea (Chronic) Nephrotic range proteinuria (Chronic) Pure hypercholesterolemia (Chronic) Type 2 diabetes mellitus (Chronic) Presence of stent in coronary artery (Chronic ~08/25/14) 07/18/10, PTCA/stent to mid to distal LCx artery; 08/17/10 PTCA/stent to proximal to mid RCA; PTCA of distal RCA with DEX September 2010; PTCA with EULALIO to mid distal AV groove left CFX 08/13 Essential hypertension (Chronic) Nonrheumatic aortic (valve) stenosis (Chronic) Nonspecific abnormal unspecified cardiovascular function study (Chronic) Diastolic dysfunction (Chronic) Other geophysical computer (current) drug therapy (Chronic) Atherosclerotic heart disease of [place] coronary artery without angina pectoris (Chronic) S/P multivessel PTCA/stent and subsequent CABG with SVG to LCx, RCA and diagonal branch with subsequent SVG graft closure to the LCx and diagonal branch; S/P CABG x 3 (Chronic ~07/21/12) CABG-SVG to diagonal, SVG to obtuse marginal & SVG to PDA 07/12; GERD (gastroesophageal reflux disease) (Chronic) Anxiety (Chronic) Hospital Course and Treatment Operations: cholecystecomy - 10/29/[address] Arnol Brooks, ERCP - Dr. Solis on 10/27/13 and 10/30/13 Procedures: None Summary of Care Provided: The patient is a 69 year old M was seen in the emergency room at [facility] with a chief complaint of black tarry stools x1 to 2 months, patient stated he had been feeling lightheaded and short of breath when walking short distances. Work-up in the emergency room included labs which revealed an elevated creatinine (patient's baseline creatinine is normally elevated) and a hemoglobin of 9.4-patient also appears to have a chronic anemia. Hemoccult of the patient's stool was positive for blood. Patient was admitted to PCU, placed on IV PPI, repeat labs showed a slight drop in the patient's hemoglobin-this examiner did not feel this was significant. Patient was seen in consultation by general surgery who did not feel the patient warranted an emergent endoscopy and recommended the patient follow-up as an outpatient to have an outpatient endoscopy. Patient serum iron was low. On 11/11/2019, patient was seen and examined: On examination he appeared older than his stated age. Vital signs as documented. Skin warm and dry and without overt rashes. Neck without JVD, neck was supple, trachea midline, thyroid was normal. Lungs clear bilaterally, normal air movement was noted. Heart exam notable for regular rhythm, normal sounds and absence of murmurs, rubs or gallops. Abdomen unremarkable and without evidence of organomegaly, masses, or abdominal aortic enlargement. Bowel sounds are present, abdomen is not distended. Extremities nonedematous, no cyanosis was noted, no clubbing was noted. Neuro: Cranial nerves II through XII are grossly intact, no focal motor deficits were noted, sensation to light touch and pinprick intact, motor exam 5/5 throughout. Psych: Patient is alert and oriented x3, he does not appear anxious or depressed, he does not appear agitated. Patient was felt to be stable for discharge on 11/11/2019, he was evaluated by PT and OT who felt he would benefit from a wheeled walker-a prescription for a wheeled walker was provided for the patient. Patient's medical condition stabilized quicker than expected during his hospitalization and he was felt stable to be discharged home. - Physical Exam Vitals/I&O's: Vital Signs Temp Pulse Resp BP Pulse Ox 98.2 F 66 20 H 155/67 H 95 11/11/19 09:23 11/11/19 09:23 11/11/19 09:23 11/11/19 09:23 11/11/19 10:05 Oxygen Delivery Method Room Air Weight: 115.3 kg Body Mass Index (BMI) 37.5 Finger Stick Blood Glucose 269 Intake and Output for Last 24 Hours 11/09/19 11/10/19 11/11/19 23:59 23:59 23:59 Intake Total 697.92 / 697.92 823.91 / 823.91 Output Total 400 / 400 Balance 297.92 / 297.92 823.91 / 823.91 Microbiology Past 72 Hours 11/10/19 18:10 Stool Stool Occult Blood (JOSE RAMON) - Final Occult Blood Positive Laboratory Results 11/10/19 17:00: WBC 9.3, RBC 3.37 L, Hgb 9.4 L, Hct 31.2 L, MCV 92.6, MCH 27.9, MCHC 30.1 L, RDW Std Deviation 56.9 H, RDW Coeff of Judi 17.1 H, Plt Count 212, MPV 9.5, Immature Gran % (Auto) 2.600 H, Neut % (Auto) 79.6 H, Lymph % (Auto) 7.9 L, [place] % (Auto) 5.8, Eos % (Auto) 3.9, Baso % (Auto) 0.2, Absolute Neuts (auto) 7.4, Absolute Lymphs (auto) 0.73 L, Nucleated RBC % 0 11/10/19 17:00: Sodium 144, Potassium 4.9, Chloride 113 H, Carbon Dioxide 24.0, Anion Gap 7, BUN 87 H, Creatinine 2.68 H, Estim Creat Clear Calc 25.52, Est GFR (MDRD) Af Amer 31 L, Est GFR (MDRD) Non-Af 25 L, BUN/Creatinine Ratio 32.5 H, Glucose 236 H, Calcium 8.2 L, Total Bilirubin 0.50, AST 9 L, ALT 18, Alkaline Phosphatase 82, Troponin I < 0.015, Total Protein 7.4, Albumin 3.4, Globulin 4.0, Albumin/Globulin Ratio 0.8 L 11/10/19 17:00: Blood Type B POSITIVE, Antibody Screen NEGATIVE 11/10/19 17:00: PT 13.9, INR 1.1 11/10/19 17:00: Crossmatch See Detail 11/10/19 21:38: POC Glucose 209 H 11/10/19 22:40: Hgb 8.9 L, Hct 29.6 L 11/11/19 04:40: Iron 41 L, TIBC 295, Iron Saturation 13.9 L 11/11/19 04:54: WBC 8.4, RBC 3.05 L, Hgb 8.4 L, Hct 28.4 L, MCV 93.1, MCH 27.5, MCHC 29.6 L, RDW Std Deviation 57.0 H, RDW Coeff of Judi 17.0 H, Plt Count 164, MPV 9.5, Immature Gran % (Auto) 1.400 H, Neut % (Auto) 81.0 H, Lymph % (Auto) 6.9 L, [place] % (Auto) 7.2, Eos % (Auto) 3.3, Baso % (Auto) 0.2, Absolute Neuts (auto) 6.8, Absolute Lymphs (auto) 0.58 L, Nucleated RBC % 0, Platelet Estimate ADEQUATE, Polychromasia RARE, Hypochromasia 1+, Anisocytosis RARE 11/11/19 04:54: Sodium 144, Potassium 4.8, Chloride 115 H, Carbon Dioxide 21.0, Anion Gap 8, BUN 89 H, Creatinine 2.68 H, Estim Creat Clear Calc 26.38, Est GFR (MDRD) Af Amer 31 L, Est GFR (MDRD) Non-Af 25 L, BUN/Creatinine Ratio 33.2 H, Glucose 230 H, Calcium 7.5 L 11/11/19 06:38: POC Glucose 210 H Discharge Activity: Return to Normal Activity Weight Bearing Status: Full weight bearing Home Medications: Medications to take at Discharge Nitroglycerin (INPATIENT USE) [Nitrostat] 0.4 mg SUBLINGUAL Q5M PRN 10/27/13 berberine-herbal comb no.18 2 cap PO BID cap 02/24/18 Allopurinol 100 mg PO DAILY 02/25/19 Aspirin E.C. [Ecotrin] 81 mg PO DAILY@0800 02/25/19 Astaxanthin 4 mg PO DAILY 02/25/19 Fluoxetine HCl 40 mg PO DAILY 02/25/19 Insulin Aspart [Novolog Flexpen] 36 units SUBCUT TIDCM 02/25/19 isosorbide mononitrate 30 mg tablet,extended release 24 hr 30 mg PO DAILY #90 tab 05/04/19 amlodipine 5 mg tablet 5 mg PO BID #180 tab 05/25/19 Furosemide [Lasix] 80 mg PO BID 11/10/19 Insulin Glargine [Lantus SoloStar Pen] 40 units SUBCUT BID 11/10/19 Metoprolol Tartrate [Lopressor (beta yana)] 50 mg PO BID 11/10/19 Ubidecarenone [Co Q-10] 400 mg PO BID 11/10/19 Ferrous Sulfate 325 mg PO BIDCM #60 tab 11/11/19 Pantoprazole Sodium [Protonix] 40 mg PO DAILY #30 tab 11/11/19 Following Prescriptions Were Given to Patient: Ferrous Sulfate 325 mg PO BIDCM #60 tab Transmission Status: Received by [facility] Pantoprazole Sodium [Protonix] 40 mg PO DAILY #30 tab Transmission Status: Received by [facility] Primary Care Physician: Davon Lemus MD [Primary Care Provider] - Please follow up with your Primary Care Physician in: as scheduled Please Follow Up With: Seth Michael MD When: in one week Disposition: Home Minutes spent on discharge:: 31 Patient Condition:: Stable Medical Necessity - Tobacco Use Smoking Status: Former smoker Meaningful Use Info Meaningful Use Diagnoses (Choose all that apply): None applicable Inpatient E&M: [id number] [facility]
== END 2019-11-11 13:29 | disposition home or self-care (01) | DRG 378 ==
LOC: ED 17:22 → PCU 18:49
PROVIDERS: Admitting Provider Hospitalist; Emergency Provider Emergency Medicine; PCP Internal Medicine; Visit Provider Internal Medicine
DX: K92.1 Melena (principal); I13.0 Hypertensive heart and chronic kidney disease with heart failure and stage 1 through stage 4 chronic kidney disease, or unspecified chronic kidney disease; N18.4 Chronic kidney disease, stage 4 (severe); I50.32 Chronic diastolic (congestive) heart failure; D50.9 Iron deficiency anemia, unspecified; E11.22 Type 2 diabetes mellitus with diabetic chronic kidney disease; I25.10 Atherosclerotic heart disease of native coronary artery without angina pectoris; I35.0 Nonrheumatic aortic (valve) stenosis; J44.9 Chronic obstructive pulmonary disease, unspecified; E78.5 Hyperlipidemia, unspecified; K21.9 Gastro-esophageal reflux disease without esophagitis; E55.9 Vitamin D deficiency, unspecified; F41.9 Anxiety disorder, unspecified; Z96.653 Presence of artificial knee joint, bilateral; Z90.49 Acquired absence of other specified parts of digestive tract; Z95.1 Presence of aortocoronary bypass graft; Z95.5 Presence of coronary angioplasty implant and graft; Z87.891 Personal history of nicotine dependence; Z79.82 Long term (current) use of aspirin; Z79.4 Long term (current) use of insulin; Z79.899 Other long term (current) drug therapy
CPT/HCPCS: 36415; 71045; 80048; 80053; 80069; 82274; 82306; 82570; 82962; 83540; 83550; 83970; 84156; 84484; 85014; 85018; 85025; 85027; 85610; 86850; 86900; 86901; 86920; 93005; 94002; 94660; 99285; J7030; A4216; J3490

== ENCOUNTER 2019-11-17 09:56 | Inpatient (IN) | payer OTHER, MEDICARE, SELFPAY ==
[2019-11-10 19:32] VITALS: BMI 37.5
[2019-11-17] VITALS (16 sets, daily range): BP systolic 121–132; BP diastolic 60–82; PULSE 62–74; RESP 14–24; TEMP 36.1–37.1; O2SAT 92–100; BMI 40.1; BMI 37.2; BMI 40.2
--- NOTE | 2019-11-17 10:21 | EKG12_ITS ---
Test Reason : SOB Blood Pressure : / mmHG Vent. Rate : 067 BPM Atrial Rate : 068 BPM P-R Int : 180 ms QRS Dur : 094 ms QT Int : 406 ms P-R-T Axes : 056 058 073 degrees QTc Int : 429 ms Normal sinus rhythm Nonspecific T wave abnormality Abnormal ECG Confirmed by ZEN VANN ([id number]), movie editor KYLE SIDDIQI ([id number]) on 11/23/2019 9:55:58 AM Referred By: LENNY Confirmed By:ZEN VANN
[2019-11-17 10:38] LABS: Absolute Lymphocyte Count 0.87 X10^3/uL (0.83-4.51); Absolute Neutrophil Count 8.9 X10^3/uL (2.0-7.7); Basophil# 0.03 X10^3/uL; Basophil% 0.3 % (0-1); Eosinophil# 0.39 X10^3/uL; Eosinophils% 3.5 % (0-5); Hematocrit 28.4 % (40-54); Hemoglobin 8.3 g/dL (13.0-16.5); Lymphocyte # 0.87 X10^3/ul (4.0); Lymphocyte % 7.8 % (19-41); Mean Corp Hgb Conc 29.2 g/dL (32-36); Mean Corpuscular Hgb 27.1 pg (27.0-32.0); Mean Corpuscular Volume 92.8 fL (80-94); Mean Platelet Vol. 9.9 fl (6.2-12.0); Monocyte% 6.3 % (0-10); NRBC Flagged by Analyzer 0.2 % (0-5); Neutrophil # 8.92 X10^3/uL (2.7-7.7); Neutrophil % 80.5 % (47-70); Platelet Count 207 K/mm3 (150-450); RBC Distribution Width CV 17.5 % (11.6-14.6); RBC Distribution Width SD 58.2 fl (35.1-43.9); Red Blood Count 3.06 M/mm3 (4.6-6.2); White Blood Count 11.1 K/mm3 (4.4-11.0)
[2019-11-17 10:53] LABS: Anion Gap 8 (5-15); BUN 95 mg/dL (7-18); BUN/Creat Ratio 30.1 RATIO (10-20); Calcium,Total 8.7 mg/dL (8.5-10.1); Chloride 116 mmol/L (98-107); Creatinine, Serum 3.16 mg/dL (0.70-1.30); EST Glomerular Filtration Rate 21 mL/min (>60); Est Glom Filt Rate - Afr Amer 25 mL/min (>60); Estimated Creatinine Clearance 21.65 ml/min; Glucose 105 mg/dL (74-106); Potassium 4.9 mmol/L (3.5-5.1); Sodium Level 143 mmol/L (136-145)
--- NOTE | 2019-11-17 10:56 | RAD_ITS ---
STUDY: X-RAY CHEST REASON FOR EXAM: Male, 69 years old. CHRONIC SOB X 10 MONTHS, HX OF PNEUMONIA, WAS ADMITTED TO HOSPITAL X 1 WEEK AGO FOR SAME SYMPTOMS AND RETURNED TO ER TODAY. TECHNIQUE: Single AP portable view of the chest. COMPARISON: 11/10/2019. FINDINGS: Median sternotomy. CABG. Cardiomegaly. Mild vascular congestion. Aorta calcified. Hazy airspace disease. No pleural effusions. Upper abdomen unremarkable. Osseous structures intact with degenerative features. No pneumothorax. RAD/Chest 1 View (Portable) IMPRESSION: Hazy airspace disease/vascular congestion (likely early fluid overload) Cardiomegaly cardiac surgery Electronically Signed: Brice Conner DO at 11:14 EDT Tel , Service support ,
[2019-11-17 10:57] LABS: D-Dimer Quantitative (DVT/PE) 0.86 FEU/ug/m (0.27-0.49)
--- NOTE | 2019-11-17 12:32 | ED.VISSUMM ---
- ER Visit Summary Date of Service: 11/17/19 Chief Complaint: [Shortness of breath] History of Present Illness: The patient is a 69 M [resents to the emergency department complaint shortness of breath that is been progressing over the last 2 to 3 months. Patient states that shortness of breath is significantly worse with activity. He can have shortness of breath at rest at times. He denies any chest pain. He denies recent travel or surgery. Patient states that oftentimes when he checks his O2 at home his O2 sats are in the 70s and 80s. Patient denies any fever or significant cough. Patient does have history of coronary artery disease, CHF, COPD, diabetes, hypertension, chronic kidney disease, and aortic stenosis.] Physical Examination: [HEENT-PERRLA, EOMI. Cranial nerves II through XII grossly intact. TMs clear. Mucous membranes moist. No adenopathy. Cardiovascular-regular rate and rhythm with 360 subjection murmur noted. Lungs-aeration bilaterally. Patient has few rales in the bases noted. Patient has a few rhonchi noted. Patient has some faint expiratory wheezes noted. No accessory muscle use or retractions. No significant conversational dyspnea. Abdomen-normoactive bowel sounds, soft, nontender, no rebound or rigidity, no peritoneal signs. Extremities-intact ?4, normal range of motion, normal pulses, atraumatic] Test Results: [EKG obtained arrival shows sinus rhythm with a ventricular rate of 67 bpm with some nonspecific ST changes. When compared with prior EKG no new changes noted. CBC with external count 11.1, hemoglobin 8.3, hematocrit 28, placed 207. Chemistries unremarkable. BUN was 95 and creatinine 3.16. Troponin less than 0.15. BNP was 396. D-dimer was 0.86. Chest x-ray showed hazy airspace disease which could indicate vascular congestion.] COVID 19 test was negative. Emergency Department Course and Treatment: [Placed on monitor car operator and an IV line was established. Patient was given albuterol MDI.] Treatment Plan: [Admit for further work-up and evaluation of his dyspnea. At this point etiology is unclear. He has had evidence of worsening aortic stenosis. He has acute kidney injury. Patient does have some evidence of fluid overload and an elevated d-dimer for which we cannot obtain a CTA given his kidney function.] Disposition: [Admit] Impression: [Dyspnea Hypoxia This note was generated with [employer] dictation software. It may contain incorrect words, spelling, and punctuation that were not noted in review of the chart prior to signing ED Disposition - Plan for ED Patient: Referrals: Davon Lemus MD [Primary Care Provider] -
--- NOTE | 2019-11-17 12:50 | NURSING ---
DR LEDEZMA FOR DR RUBIN
--- NOTE | 2019-11-17 13:28 | NURSING ---
106 DYSPNEA, HYPOXIA PAINTSIL
[2019-11-17 14:40] LABS: AST(SGOT) 10 U/L (15-37); Alanine Aminotransfer ALT/SGPT 21 U/L (16-61); Albumin, Serum 3.4 g/dL (3.2-5.0); Alkaline Phosphatase 90 U/L (45-117); Bilirubin, Direct 0.17 mg/dL (0.00-0.30); Globulin 4.1 g/dL (2.2-4.2); Protein, Total 7.5 g/dL (6.4-8.2)
--- NOTE | 2019-11-17 15:22 | HP.PCM_ITS ---
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: with alf use Diabetes mellitus complication status: with other specified complication Qualified Code(s): E11.69 - Type 2 diabetes mellitus with other specified complication; 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 (6) Presence of stent in coronary artery Status: Chronic Comment: 07/18/10, PTCA/stent to mid to distal LCx artery; 08/17/10 PTCA/stent to proximal to mid RCA; PTCA of distal RCA with DEX September 2010; PTCA with EULALIO to mid distal AV groove left CFX 08/13 (7) Essential hypertension Status: Chronic (8) Atherosclerotic heart disease of [place] coronary artery without angina pectoris Status: Chronic Qualifiers: Comment: S/P multivessel PTCA/stent and subsequent CABG with SVG to LCx, RCA and diagonal branch with subsequent SVG graft closure to the LCx and diagonal branch; (9) GERD (gastroesophageal reflux disease) Status: Chronic Qualifiers: (10) Anxiety Status: Chronic History of Present Illness Date of Admission: 11/17/19 Chief Complaint: Shortness of breath - progressing over 6 months The patient is a 69 year old M with multiple comorbidities significant for chronic diastolic CHF/CAD status post CABG and stents/stage IV CKD who was recently admitted on 11/10/19 and discharged on 11/11/19. Last admission, patient was found to have melena. Outpatient endoscopy was planned for coming . Patient comes in with progressive shortness of breath/orthopnea and PND. Denied any chest pain or dizziness or palpitations. He has been compliant with his fluid restriction. He still has melena stools. Vitals in the ED showed temperature of 90 7.6F, heart rate 62, blood pressure 132/69, respiratory 70, SPO2 99% on 4 L of oxygen. His RBC count 11.1, hemoglobin at 8.3, unchanged from previous hemoglobin of 8.4, platelet count was 207, d-dimer 0.86, sodium 143, potassium 4.9, chloride 106, bicarbonate 19, BUN 95, creatinine 3.16, troponin is negative. EKG shows no acute ST-T changes. BNPep 396.0 Chest x-ray shows hazy airspace disease/vascular congestion, cardiomegaly. Past Medical History Past Medical History (Chronic Problems): Chronic Problems (Last Reviewed 11/11/19 @ 08:[address] Seth Michael MD) Chronic kidney disease (Chronic) Kidney disease, chronic, stage IV (GFR 15-29 ml/min) (Chronic) COPD (chronic obstructive pulmonary disease) (Chronic) Sleep apnea (Chronic) Nephrotic range proteinuria (Chronic) Pure hypercholesterolemia (Chronic) Type 2 diabetes mellitus (Chronic) Presence of stent in coronary artery (Chronic ~08/25/14) 07/18/10, PTCA/stent to mid to distal LCx artery; 08/17/10 PTCA/stent to proximal to mid RCA; PTCA of distal RCA with DEX September 2010; PTCA with EULALIO to mid distal AV groove left CFX 08/13 Essential hypertension (Chronic) Nonrheumatic aortic (valve) stenosis (Chronic) Nonspecific abnormal unspecified cardiovascular function study (Chronic) Diastolic dysfunction (Chronic) 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 Seth Michael MD) COPD (chronic obstructive pulmonary disease) (Chronic) J44.9 Sleep apnea (Chronic) G47.30 Pure hypercholesterolemia (Chronic) E78.00 Type 2 diabetes mellitus (Chronic) E11.9 Presence of stent in coronary artery (Chronic) Onset Date: ~08/25/14 Z95.5 07/18/10, PTCA/stent to mid to distal LCx artery; 08/17/10 PTCA/stent to proximal to mid RCA; PTCA of distal RCA with DEX September 2010; PTCA with EULALIO to mid distal AV groove left CFX 08/13 Essential hypertension (Chronic) I10 Nonrheumatic aortic (valve) stenosis (Chronic) I35.0 Diastolic dysfunction (Chronic) I51.9 Atherosclerotic heart disease of [place] coronary artery without angina pectoris (Chronic) I25.10 S/P multivessel PTCA/stent and subsequent CABG with SVG to LCx, RCA and diagonal branch with subsequent SVG graft closure to the LCx and diagonal branch; Aortic valve disease (Inactive) I35.9 Coronary atherosclerosis of [place] coronary artery (Inactive) I25.10 Diabetes mellitus (Inactive) E11.9 HTN (hypertension) (Inactive) I10 Allergies carvedilol [From Coreg] Allergy (Severe, Verified 11/17/19 10:01) vomiting valsartan [From Diovan] Allergy (Severe, Verified 11/17/19 14:07) Possible angioedema, throat swelling sertraline HCl [From Zoloft] Allergy (Verified 11/17/19 13:56) Unknown makes me mean bupropion HCl [From Wellbutrin] Adverse Reaction (Verified 11/17/19 10:01) gets mean citalopram Adverse Reaction (Verified 11/17/19 10:01) Other gabapentin Adverse Reaction (Verified 11/17/19 10:01) Other Home Medications: Ambulatory Orders Medication Instructions Recorded Nitroglycerin (INPATIENT USE) 0.4 mg SUBLINGUAL Q5M PRN 10/27/13 [Nitrostat] berberine-herbal comb no.18 2 cap PO BID cap 02/24/18 Allopurinol 100 mg PO DAILY 02/25/19 Aspirin E.C. [Ecotrin] 81 mg PO DAILY@0800 02/25/19 Astaxanthin 4 mg PO DAILY 02/25/19 Fluoxetine HCl 40 mg PO DAILY 02/25/19 Insulin Aspart [Novolog Flexpen] 36 units SUBCUT TIDCM 02/25/19 isosorbide mononitrate 30 mg 30 mg PO DAILY #90 tab 05/04/19 tablet,extended release 24 hr amlodipine 5 mg tablet 5 mg PO BID #180 tab 05/25/19 Furosemide [Lasix] 80 mg PO BID 11/10/19 Insulin Glargine [Lantus SoloStar 40 units SUBCUT BID 11/10/19 Pen] Metoprolol Tartrate [Lopressor 50 mg PO BID 11/10/19 (beta yana)] Ubidecarenone [Co Q-10] 400 mg PO BID 11/10/19 Ferrous Sulfate 325 mg PO BIDCM #60 tab 11/11/19 Pantoprazole Sodium [Protonix] 40 mg PO DAILY #30 tab 11/11/19 Surgical History: Surgical History (Last Reviewed 11/11/19 @ 08:[address] Seth Michael MD) S/P CABG x 3 (Chronic) Onset Date: ~07/21/12 Z95.1 CABG-SVG to diagonal, SVG to obtuse marginal & SVG to PDA 07/12; History of bilateral knee replacement Z96.653 History of carpal tunnel repair Z98.890 History of cholecystectomy Z90.49 History of partial colectomy Z90.49 History of repair of rotator cuff Z98.890 Presence of coronary angioplasty implant and graft Z95.5 07/18/10, PTCA/stent to mid to distal LCx artery; 08/17/10 PTCA/stent to proximal to mid RCA; PTCA of distal RCA with DEX September 2010; PTCA with EULALIO to mid distal AV groove left CFX 08/13 S/P PTCA (percutaneous transluminal coronary angioplasty) (Inactive) Z98.61 07/18/10, PTCA/stent to mid to distal LCx artery; 08/17/10 PTCA/stent to proximal to mid RCA; PTCA of distal RCA with DEX September 2010; PTCA with EULALIO to mid distal AV groove left CFX 08/13 Surgical History: angioplasty, arthroscopy, knee, coronary bypass surgery, - - Patient status post CABG x3, serial PCI, bilateral total knee replacement, rotator cuff repair, partial colectomy, cholecystectomy, carpal tunnel surgery. Psychiatric History: No pertinent psych hx Smoking Status: Former smoker Tobacco Use: Non-smoker Alcohol: None Drugs: None - *Family History Maternal Family History: Family History (Last Reviewed 11/10/19 @ 18:[address] Iman Patrick MD) Father CAD (coronary artery disease) Afib Aortic valve replaced Mother Cancer Son Lupus History Items: Cancer Paternal Family History: Family History (Last Reviewed 11/10/19 @ 18:[address] Iman Patrick MD) Father CAD (coronary artery disease) Afib Aortic valve replaced Mother Cancer Son Lupus History Items: High Cholesterol, Heart Disease - Atrial fibrillation; valvular heart disease status post aVR; , Hypertension Review of Systems Constitutional: Denies: Anorexia, Chills, Fever, Night Sweats, Malaise, Weakness, Weight Change, Fatigue Eyes: Denies: Blurred vision, Cataracts, Conjunctivae Inflammation, Pain, Redness, Vision Change HEENT: Denies: Difficulty Hearing, Difficulty Swallowing, Head Aches, Hearing Changes, Sinus Congestion, Sinus Drainage, Sore Throat Cardiovascular: Reports: Orthopnea, Paroxysmal Noc. Dyspnea. Denies: Chest Pain, Claudication, Light Headedness, Palpitations, Syncope Respiratory: Reports: Shortness of Breath, Shortness of breath at rest, Shortness of breath upon exertion. Denies: Cough, Sputum production Gastrointestinal: Denies: Abdominal Pain, Hematemesis, Hematochezia, Nausea, Vomiting Genitourinary: Denies: Dysuria Musculoskeletal: Denies: Joint Pain, Joint Tenderness Skin: Denies: Rash, Wounds Neurological: Denies: Numbness, Tingling, Focal weakness Psychiatric: Denies: Anxiety, Depression, Homicidal Ideations, Suicidal Ideations Hematologic/ Lymphatic: Denies: Easy Bruising, Easy Bleeding VTE Information - Inpt Only VTE Present on Admission: No VTE Pharm Prophylaxis ordered?: Yes - Physical Exam Vitals/I&O's: Vital Signs Temp Pulse Resp BP Pulse Ox 97.7 F L 62 20 H 121/64 H 98 11/17/19 13:50 11/17/19 13:59 11/17/19 13:50 11/17/19 13:50 11/17/19 13:50 Oxygen Flow Rate (L/min) 4 Oxygen Delivery Method Nasal Cannula Weight: 114.3 kg Body Mass Index (BMI) 37.2 Finger Stick Blood Glucose 269 General: Alert, Oriented x3, Cooperative, No apparent distress HEENT: Atraumatic, PERRLA, EOMI, Normocephalic Oral: Moist Mucosa Neck: Supple Lungs: Diminished, - - on 4L oxygen Cardiovascular: Regular rate, Regular Rhythm, Normal S1, Normal S2, No murmurs Abdomen: Bowel Sounds Present, Soft, Non Tender, Non-Distended, No Hepato- splenomegaly Extremities: Edema - Bilateral pedal edema +1 Skin: No rashes Musculoskeletal: No Tenderness to Palpation of Joints or Extremities Lymphatic: No Cervical, Supraclavicular, or Inguinal Adenopathy Neurological: Cranial nerves II-XII grossly intact, Neuro grossly intact Psych/Mental Status: Normal Affect, Appropriate Laboratory Results 11/17/19 10:09: WBC 11.1 H, RBC 3.06 L, Hgb 8.3 L, Hct 28.4 L, MCV 92.8, MCH 27.1, MCHC 29.2 L, RDW Std Deviation 58.2 H, RDW Coeff of Judi 17.5 H, Plt Count 207, MPV 9.9, Immature Gran % (Auto) 1.600 H, Neut % (Auto) 80.5 H, Lymph % (Auto) 7.8 L, [place] % (Auto) 6.3, Eos % (Auto) 3.5, Baso % (Auto) 0.3, Absolute Neuts (auto) 8.9 H, Absolute Lymphs (auto) 0.87, Nucleated RBC % 0.2 11/17/19 10:09: D-Dimer Quant (PE/DVT) 0.86 H* 11/17/19 10:09: Sodium 143, Potassium 4.9, Chloride 116 H, Carbon Dioxide 19.0 L , Anion Gap 8, BUN 95 H, Creatinine 3.16 H, Estim Creat Clear Calc 21.65, Est GFR (MDRD) Af Amer 25 L, Est GFR (MDRD) Non-Af 21 L, BUN/Creatinine Ratio 30.1 H , Glucose 105, Calcium 8.7, Troponin I < 0.015 11/17/19 10:09: B-Natriuretic Peptide 396.0 H 11/17/19 10:09: Total Bilirubin 0.50, Direct Bilirubin 0.17, AST 10 L, ALT 21, Alkaline Phosphatase 90, Total Protein 7.5, Albumin 3.4, Globulin 4.1 11/17/19 10:34: COVID-19 (SANG) Not Detected Current Medications Acetaminophen (Tylenol) 650 mg PO Q6H PRN PRN PRN Reason: Pain Score 1-10/Temp > 100.7 F Albuterol Sulfate (Ventolin Aerosols) 2.5 mg INHALATION Q4H PRN PRN PRN Reason: SOB &/OR WHEEZING Dextrose (D50w Syringe) 0 gm IV X1 PRN; Protocol PRN Reason: Hypoglycemia Enoxaparin Sodium (Lovenox) 120 mg SC DAILY HAYES Furosemide (Lasix) 40 mg IV BID@1000,1800 HAYES Glucagon () 1 mg IM .X1 PRN PRN Reason: Hypoglycemia Sodium Chloride () 250 mls @ 15 mls/hr IV .[id number] PRN PRN Reason: Saline Flush Sodium Chloride () 250 mls @ 15 mls/hr IV .[id number] PRN PRN Reason: Additional IVPB Infusion Insulin Human Lispro (Humalog Kwikpen (Bkc)) 0 unit SC ACHS HAYES; Protocol Nitroglycerin (Nitrostat) 0.4 mg SUBLINGUAL Q5M PRN PRN Reason: CARDIAC/CHEST PAIN Ondansetron HCl (Zofran) 4 mg IV Q8H PRN PRN PRN Reason: NAUSEA/VOMITING Sodium Chloride () 10 - 40 ml IV UD PRN PRN Reason: SALINE FLUSH Assessment/Plan All Active Problems (Last Reviewed 11/11/19 @ 08:[address] Seth Michael MD) Upper GI bleed (Acute) Anemia (Acute) Dyspnea on exertion (Acute) 69 year old M with multiple comorbidities significant for chronic diastolic CHF/CAD status post CABG and stents/stage IV CKD who was recently admitted on 11/10/19 and discharged on 11/11/19 comes in with worsening shortness of breath. 1. Acute hypoxic respiratory failure, multifactorial likely secondary to acute on chronic diastolic CHF versus progressive aortic stenosis vs fluid overload from EDGARDO on CKD vs probable PE, in the setting of chronic anemia possibly secondary to chronic GI bleed Currently on 4 L of oxygen, continue to wean off for SPO2 more than 94% Pulmonology consulted 2. Acute on chronic diastolic CHF, likely worsened in the setting of progressive aortic stenosis Previous 2D echo showed normal EF, moderate aortic valve stenosis Patient is being followed up in the [facility] Lasix IV twice daily, strict I's and O's, Repeat 2D echo here, trend troponins Cardiology consulted 3. EDGARDO on CKD stage IV, admitting creatinine of 3.16, previous creatinine 2.68 Nephrology consulted, urine sodium, urine creatinine Blood work in a.m. 4. Elevated d-dimer, unable to do CTA of the chest on account of EDGARDO Continue on therapeutic Lovenox, pulmonology consulted 5. Chronic GI bleed, recent admission, outpatient follow-up recommended -when up in 2 days Hb has remained stable at 8.4. Would monitor whilst on therapeutic Lovenox We will continue to monitor, check FOBT , continue on IV PPI twice daily Will consider general surgery consult in this admission if patient continues to have melena 6. Chronic iron deficiency anemia secondary to #4, continue on oral iron 7. 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 DASHA on BiPAP 9. CAD status post CABG, status post stent, hypertension, remains stable Continue on amlodipine, aspirin, isosorbide, metoprolol 10. DVT PPx- On therapeutic Lovenox Inpatient E&M: 11990 Init Hosp L3
--- NOTE | 2019-11-17 15:53 | ECHOCS_ITS ---
Reason For Study: DYSPNEA/SOB Procedure This was a 2D Doppler, Color Flow transthoracic echocardiogram. The study was technically difficult. Exam performed portable in patient room. Left Ventricle Mild concentric left ventricular hypertrophy. Mildly dilated left ventricle. The estimated ejection fraction is 65 %. Right Ventricle Normal size and thickness. Normal systolic function. Atria The left atrium is mildly enlarged. Normal right atrium. Normal atrial septum. Mitral Valve Mild diffuse mitral valve thickening. Severe mitral annular calcification extending into the posterior leaflet. There is no stenosis. Tricuspid Valve Normal tricuspid valve. Unable to estimate RV systolic pressure due to insufficient tricuspid regurgitant envelope. Aortic Valve Moderate diffuse aortic valve thickening. Moderate focal aortic valve thickening. Moderate restriction of the aortic valve. Mild to moderate aortic stenosis. Peak aortic valve gradient 35 mmHg. Mean aortic valve gradient 20 mmHg. Calculated aortic valve area (continuity equation) is 1.2 cm2. Pulmonic Valve The pulmonic valve is not well visualized. Great Vessels Normal aortic root. Normal arch. Normal inferior vena cava. Inferior vena cava collapse with sniff. Pericardium/Pleural No pericardial effusion. Medication Diluted definity 3ml given slow IV push to enhance endocardial definition. MMode/2D Measurements & Calculations LVIDd: 5.1 cm IVSd: 1.3 cm LVOT diam: 2.0 cm LVIDs: 3.7 cm LVPWd: 1.4 cm FS: 27.1 % LVOT area: 3.2 cm2 Ao root diam: 3.0 cm LAV(MOD-bp): 85.6 ml LVAd ap4: 30.9 cm2 LAV(MOD-bp) Indexed: 37.6 ml/m2 EDV(MOD-sp4): 104.6 ml LAV(MOD-sp2): 69.2 ml EDV(sp4-el): 110.0 ml LAV(MOD-sp4): 101.6 ml LVAs ap4: 17.8 cm2 ESV(MOD-sp4): 41.2 ml ESV(sp4-el): 42.7 ml EF(MOD-sp4): 60.6 % EF(sp4-el): 61.2 % SV(MOD-sp4): 63.4 ml SV(sp4-el): 67.3 ml LA A4 area: 28.6 cm2 LA dimension(2D): 4.5 cm RA A4 area: 16.5 cm2 Time Measurements MV dec time: 0.24 sec Doppler Measurements & Calculations MV E max jhon: 157.5 cm/sec Lat Peak E' Jhon: 12.6 cm/sec Med Peak E' Jhon: 10.8 cm/sec MV A max jhon: 107.5 cm/sec E/E' lat: 12.5 E/E' med: 14.6 MV E/A: 1.5 Ao V2 max: 300.1 cm/sec LV V1 max: 99.3 cm/sec SV(LVOT): 82.3 ml Ao max P.0 mmHg LV V1 max P.9 mmHg Ao V2 mean: 206.0 cm/sec LV V1 mean P.1 mmHg Ao mean P.9 mmHg LV V1 mean: 66.5 cm/sec Ao V2 VTI: 67.7 cm LV V1 VTI: 25.5 cm LUIS ARMANDO(I,D): 1.2 cm2 LUIS ARMANDO(V,D): 1.1 cm2 PA V2 max: 130.0 cm/sec Interpretation Summary Mild concentric left ventricular hypertrophy. Mildly dilated left ventricle. The estimated ejection fraction is 65 %. The left atrium is mildly enlarged. Unable to estimate RV systolic pressure due to insufficient tricuspid regurgitant envelope. Moderate restriction of the aortic valve. Mild to moderate aortic stenosis. Peak aortic valve gradient 35 mmHg. Calculated aortic valve area (continuity equation) is 1.2 cm2. Compared to echo report dated 12/11/2018, LV function has remained the same, but aortic vavle gradient appears to have improved from moderate/severe to mild/moderate. AV gradients may be affected by degree of anemia. The study was technically difficult. Contrast injection was performed. Ordering Physician: Makenzie Lerma Referring Physician: LIZ RODRIGUEZ Performed By: Margie Miller RDCS
[2019-11-17] MEDS: 0.9% Saline Lock 10 ML Syringe IV (17:05)
[2019-11-17] MEDS: Furosemide 40 MG/4 ML Vial IV (17:05)
[2019-11-17] MEDS: Ferrous Sulfate 325 MG Tablet PO (17:05)
[2019-11-17] MEDS: Insulin Lispro 100 UNIT/ML INSULN.PEN 36 UNIT SC (18:19)
[2019-11-17 18:30] LABS: Bedside Glucose 119 mg/dL (70-110)
[2019-11-17 18:40] LABS: Urine Sodium 85 mmol/L (Not Establ.)
[2019-11-17] MEDS: Ipratropium/Albuterol Sulfate 3 ML AMPUL.NEB INHALATION (19:00)
[2019-11-17] MEDS: amLODIPine 5 MG Tablet PO (22:19)
[2019-11-17] MEDS: Metoprolol Tartrate 50 MG Tablet PO (22:19)
[2019-11-17 22:46] LABS: Bedside Glucose 74 mg/dL (70-110)
[2019-11-17 22:46] LABS: Bedside Glucose 61 mg/dL (70-110)
--- NOTE | 2019-11-17 23:25 | PCM.PN.BLA ---
Progress Note Because of hypoglycemia. We will hold off home basal and prandial insulin at this time. Continue correction scale insulin. Adjust as necessary. STROKE Vital Signs/Narrative: Vital Signs Temp Pulse Resp BP Pulse Ox 11/17/19 23:00 69 11/17/19 22:19 71 11/17/19 22:15 98.7 F 71 20 H 126/62 H 97
[2019-11-18] VITALS (19 sets, daily range): BP systolic 119–147; BP diastolic 56–93; PULSE 67–80; RESP 17–24; TEMP 36.5–37.3; O2SAT 92–97
[2019-11-18 06:05] LABS: Absolute Lymphocyte Count 0.81 X10^3/uL (0.83-4.51); Absolute Neutrophil Count 7.6 X10^3/uL (2.0-7.7); Basophil# 0.02 X10^3/uL; Basophil% 0.2 % (0-1); Eosinophil# 0.32 X10^3/uL; Eosinophils% 3.3 % (0-5); Hemoglobin 7.3 g/dL (13.0-16.5); Lymphocyte # 0.81 X10^3/ul (4.0); Lymphocyte % 8.4 % (19-41); Mean Corp Hgb Conc 29.2 g/dL (32-36); Mean Corpuscular Hgb 27.2 pg (27.0-32.0); Mean Corpuscular Volume 93.3 fL (80-94); Mean Platelet Vol. 9.6 fl (6.2-12.0); Monocyte# 0.65 X10^3/uL; Monocyte% 6.8 % (0-10); NRBC Flagged by Analyzer 0.2 % (0-5); Neutrophil # 7.61 X10^3/uL (2.7-7.7); Neutrophil % 79.1 % (47-70); Platelet Count 191 K/mm3 (150-450); RBC Distribution Width CV 17.6 % (11.6-14.6); RBC Distribution Width SD 59.3 fl (35.1-43.9); Red Blood Count 2.68 M/mm3 (4.6-6.2); White Blood Count 9.6 K/mm3 (4.4-11.0)
--- NOTE | 2019-11-18 06:17 | PCM.PN.BLA ---
Progress Note Notified of positive occult stools. Patient on twice daily Protonix. Patient on therapeutic dose of Lovenox for elevated d-dimer in the setting of EDGARDO and unable to do a CTPA. Per attending rounding MD surgical consult to be considered if patient continues to have melanotic stools. Will defer further management to attending MD. STROKE Vital Signs/Narrative: Vital Signs Temp Pulse Resp BP Pulse Ox 11/18/19 04:10 98.2 F 68 18 119/56 L 92 11/18/19 03:00 68
[2019-11-18 06:34] LABS: ALB/GLOB Ratio 0.8 RATIO (0.9-2.4); AST(SGOT) 10 U/L (15-37); Alanine Aminotransfer ALT/SGPT 19 U/L (16-61); Albumin, Serum 2.9 g/dL (3.2-5.0); Alkaline Phosphatase 78 U/L (45-117); Anion Gap 8 (5-15); BUN 98 mg/dL (7-18); BUN/Creat Ratio 27.4 RATIO (10-20); Calcium,Total 7.9 mg/dL (8.5-10.1); Chloride 115 mmol/L (98-107); Creatinine, Serum 3.58 mg/dL (0.70-1.30); EST Glomerular Filtration Rate 18 mL/min (>60); Est Glom Filt Rate - Afr Amer 22 mL/min (>60); Estimated Creatinine Clearance 19.75 ml/min; Globulin 3.8 g/dL (2.2-4.2); Glucose 162 mg/dL (74-106); Protein, Total 6.7 g/dL (6.4-8.2); Sodium Level 142 mmol/L (136-145)
[2019-11-18] MEDS: Insulin Lispro 100 UNIT/ML INSULN.PEN SC ×3 (06:45→16:52)
[2019-11-18 06:51] LABS: Bedside Glucose 157 mg/dL (70-110)
[2019-11-18] MEDS: Ipratropium/Albuterol Sulfate 3 ML AMPUL.NEB INHALATION ×4 (06:55→19:09)
--- NOTE | 2019-11-18 07:53 | CPS ---
Patient desatted to 88% after breathing treatment. Put him on 1L via nasal cannula and his oxygen saturation came back up to 92%.
--- NOTE | 2019-11-18 08:25 | PCM.CONS.PUL ---
Reason for Consult Date of Consultation: 11/18/19 Reason for Consultation: Acute Hypoxemic Respiratory Insufficiency History of Present Illness: The patient is a 69-year-old male, with a history as outlined below, who presented to the emergency department on November 16 with complaints of progressive shortness of breath over several months duration. The patient was just admitted to the hospital for 1 day in mid October with melena and lightheadedness. The patient was evaluated by general surgery at that time who recommended that he be placed on acid suppression medications and follow-up as an outpatient for EGD. The patient is currently followed by Dr. Green of cardiology due to a history of coronary artery disease status post CABG along with heart failure with preserved ejection fraction. The patient does have a remote smoking history, having quit completely 35+ years ago. He was, nevertheless, a heavy smoker during the time that he was reliant on tobacco products. He also has known DASHA. Re-titration polysomnogram was completed in May 2019, for which it was recommended that the patient be placed on nocturnal BiPAP with a pressure support of 21/17 centimeters of water. On presentation to the emergency department, the patient was noted to be afebrile and hemodynamically stable. He was saturating 100% on 4 L/min via nasal cannula. Laboratory evaluation revealed a white blood cell count of 11,000. Hemoglobin was noted to be 8.3 g/dL. The patient has had a slow downward decline in his hemoglobin level dating back to the fall 2018. D-dimer was mildly elevated at 0.86. Chemistry profile was notable for a bicarbonate of 19 and creatinine of 3.16. Creatinine at the time of his discharge from the hospital on November 10 was noted to be 2.68. BNP was elevated at 396. Troponin was negative. Initial plain film chest x-ray revealed probable early vascular congestion. Coronavirus PCR was negative. The patient was initially placed on therapeutic Lovenox therapy along with IV diuretics. He was then admitted to the progressive care unit for further management. Past Medical History Past Medical History (Chronic Problems): Chronic Problems (Last Reviewed 11/11/19 @ 08:[address] Seth Michael MD) Chronic kidney disease (Chronic) Kidney disease, chronic, stage IV (GFR 15-29 ml/min) (Chronic) COPD (chronic obstructive pulmonary disease) (Chronic) Sleep apnea (Chronic) Nephrotic range proteinuria (Chronic) Pure hypercholesterolemia (Chronic) Type 2 diabetes mellitus (Chronic) Presence of stent in coronary artery (Chronic ~08/25/14) 07/18/10, PTCA/stent to mid to distal LCx artery; 08/17/10 PTCA/stent to proximal to mid RCA; PTCA of distal RCA with DEX September 2010; PTCA with EULALIO to mid distal AV groove left CFX 08/13 Essential hypertension (Chronic) Nonrheumatic aortic (valve) stenosis (Chronic) Nonspecific abnormal unspecified cardiovascular function study (Chronic) Diastolic dysfunction (Chronic) 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 Seth Michael MD) COPD (chronic obstructive pulmonary disease) (Chronic) J44.9 Sleep apnea (Chronic) G47.30 Pure hypercholesterolemia (Chronic) E78.00 Type 2 diabetes mellitus (Chronic) E11.9 Presence of stent in coronary artery (Chronic) Onset Date: ~08/25/14 Z95.5 07/18/10, PTCA/stent to mid to distal LCx artery; 08/17/10 PTCA/stent to proximal to mid RCA; PTCA of distal RCA with DEX September 2010; PTCA with EULALIO to mid distal AV groove left CFX 08/13 Essential hypertension (Chronic) I10 Nonrheumatic aortic (valve) stenosis (Chronic) I35.0 Diastolic dysfunction (Chronic) I51.9 Atherosclerotic heart disease of [place] coronary artery without angina pectoris (Chronic) I25.10 S/P multivessel PTCA/stent and subsequent CABG with SVG to LCx, RCA and diagonal branch with subsequent SVG graft closure to the LCx and diagonal branch; Aortic valve disease (Inactive) I35.9 Coronary atherosclerosis of [place] coronary artery (Inactive) I25.10 Diabetes mellitus (Inactive) E11.9 HTN (hypertension) (Inactive) I10 Allergies carvedilol [From Coreg] Allergy (Severe, Verified 11/17/19 10:01) vomiting valsartan [From Diovan] Allergy (Severe, Verified 11/17/19 14:07) Possible angioedema, throat swelling sertraline HCl [From Zoloft] Allergy (Verified 11/17/19 13:56) Unknown makes me mean bupropion HCl [From Wellbutrin] Adverse Reaction (Verified 11/17/19 10:01) gets mean citalopram Adverse Reaction (Verified 11/17/19 10:01) Other gabapentin Adverse Reaction (Verified 11/17/19 10:01) Other Home Medications: Ambulatory Orders Medication Instructions Recorded Nitroglycerin (INPATIENT USE) 0.4 mg SUBLINGUAL Q5M PRN 10/27/13 [Nitrostat] berberine-herbal comb no.18 2 cap PO BID cap 02/24/18 Allopurinol 100 mg PO DAILY 02/25/19 Aspirin E.C. [Ecotrin] 81 mg PO DAILY@0800 02/25/19 Astaxanthin 4 mg PO DAILY 02/25/19 Fluoxetine HCl 40 mg PO DAILY 02/25/19 Insulin Aspart [Novolog Flexpen] 36 units SUBCUT TIDCM 02/25/19 isosorbide mononitrate 30 mg 30 mg PO DAILY #90 tab 05/04/19 tablet,extended release 24 hr amlodipine 5 mg tablet 5 mg PO BID #180 tab 05/25/19 Furosemide [Lasix] 80 mg PO BID 11/10/19 Insulin Glargine [Lantus SoloStar 40 units SUBCUT BID 11/10/19 Pen] Metoprolol Tartrate [Lopressor 50 mg PO BID 11/10/19 (beta ayde)] Ubidecarenone [Co Q-10] 400 mg PO BID 11/10/19 Ferrous Sulfate 325 mg PO BIDCM #60 tab 11/11/19 Pantoprazole Sodium [Protonix] 40 mg PO DAILY #30 tab 11/11/19 Surgical History: Surgical History (Last Reviewed 11/11/19 @ 08:[address] Seth Michael MD) S/P CABG x 3 (Chronic) Onset Date: ~07/21/12 Z95.1 CABG-SVG to diagonal, SVG to obtuse marginal & SVG to PDA 07/12; History of bilateral knee replacement Z96.653 History of carpal tunnel repair Z98.890 History of cholecystectomy Z90.49 History of partial colectomy Z90.49 History of repair of rotator cuff Z98.890 Presence of coronary angioplasty implant and graft Z95.5 07/18/10, PTCA/stent to mid to distal LCx artery; 08/17/10 PTCA/stent to proximal to mid RCA; PTCA of distal RCA with DEX September 2010; PTCA with EULALIO to mid distal AV groove left CFX 08/13 S/P PTCA (percutaneous transluminal coronary angioplasty) (Inactive) Z98.61 07/18/10, PTCA/stent to mid to distal LCx artery; 08/17/10 PTCA/stent to proximal to mid RCA; PTCA of distal RCA with DEX September 2010; PTCA with EULALIO to mid distal AV groove left CFX 08/13 Surgical History: angioplasty, arthroscopy, knee, coronary bypass surgery, - - Patient status post CABG x3, serial PCI, bilateral total knee replacement, rotator cuff repair, partial colectomy, cholecystectomy, carpal tunnel surgery. Psychiatric History: No pertinent psych hx Smoking Status: Former smoker Tobacco Use: Non-smoker Alcohol: None Drugs: None - *Family History Maternal Family History: Family History (Last Reviewed 11/10/19 @ 18:[address] Iman Patrick MD) Father CAD (coronary artery disease) Afib Aortic valve replaced Mother Cancer Son Lupus History Items: Cancer Paternal Family History: Family History (Last Reviewed 11/10/19 @ 18:[address] Iman Patrick MD) Father CAD (coronary artery disease) Afib Aortic valve replaced Mother Cancer Son Lupus History Items: High Cholesterol, Heart Disease - Atrial fibrillation; valvular heart disease status post aVR; , Hypertension Review of Systems Constitutional: Denies: Chills, Fever, Weight Change Eyes: Denies: Blurred vision, Double vision HEENT: Denies: Head Aches, Sinus Congestion, Sinus Drainage Cardiovascular: Denies: Chest Pain, Palpitations Respiratory: Reports: Shortness of Breath Gastrointestinal: Denies: Abdominal Pain, Nausea, Vomiting Genitourinary: Denies: Dysuria Skin: Denies: Rash, Wounds Neurological: Denies: Numbness, Tingling, Focal weakness Psychiatric: Denies: Anxiety, Depression, Homicidal Ideations, Suicidal Ideations Hematologic/ Lymphatic: Reports: Anemia Objective: The patient's most recent lab work, culture data and imaging studies have all been personally reviewed. - Physical Exam Vitals/I&O's: Vital Signs Temp Pulse Resp BP Pulse Ox 98.1 F 79 24 H 147/74 H 96 11/18/19 08:09 11/18/19 08:09 11/18/19 08:09 11/18/19 08:09 11/18/19 08:09 Oxygen Flow Rate (L/min) 4 Oxygen Delivery Method Nasal Cannula Weight: 251 lb 5.231 oz Body Mass Index (BMI) 37.2 Finger Stick Blood Glucose 269 Intake and Output for Last 24 Hours 11/16/19 11/17/19 11/18/19 23:59 23:59 23:59 Intake Total 710 / 710 120 / 120 Output Total 1125 / 1125 425 / 425 Balance -415 / -415 -305 / -305 General: Alert, Cooperative, No apparent distress HEENT: Atraumatic, PERRLA, Normocephalic Oral: No Gingival or Mucosal Lesions/ Ulcerations Neck: Supple, No Nodes, Trachea Midline Lungs: No rhonchi, No wheeze, No rales, Diminished, - - No conversational dyspnea or accessory muscle use. Cardiovascular: Regular rate, Regular Rhythm Abdomen: Bowel Sounds Present, Soft, Non Tender, Obese Extremities: No clubbing, No cyanosis, Edema Skin: No breakdown Musculoskeletal: No Tenderness to Palpation of Joints or Extremities Lymphatic: No Cervical, Supraclavicular, or Inguinal Adenopathy Neurological: Cranial nerves II-XII grossly intact, Neuro grossly intact Psych/Mental Status: Alert and oriented to time, place, person, mood and affect Labs (Last 48 Hours) 11/17/19 11/17/19 11/17/19 10:09 10:09 10:09 WBC 11.1 H RBC 3.06 L Hgb 8.3 L Hct 28.4 L MCV 92.8 MCH 27.1 MCHC 29.2 L RDW Std Deviation 58.2 H RDW Coeff of Judi 17.5 H Plt Count 207 MPV 9.9 Immature Gran % (Auto) 1.600 H Neut % (Auto) 80.5 H Lymph % (Auto) 7.8 L [place] % (Auto) 6.3 Eos % (Auto) 3.5 Baso % (Auto) 0.3 Absolute Neuts (auto) 8.9 H Absolute Lymphs (auto) 0.87 Nucleated RBC % 0.2 D-Dimer Quant (PE/DVT) 0.86 H* Sodium 143 Potassium 4.9 Chloride 116 H Carbon Dioxide 19.0 L Anion Gap 8 BUN 95 H Creatinine 3.16 H Estim Creat Clear Calc 21.65 Est GFR (MDRD) Af Amer 25 L Est GFR (MDRD) Non-Af 21 L BUN/Creatinine Ratio 30.1 H Glucose 105 Calcium 8.7 Total Bilirubin Direct Bilirubin AST ALT Alkaline Phosphatase Troponin I < 0.015 B-Natriuretic Peptide Total Protein Albumin Globulin Albumin/Globulin Ratio Ur Random Sodium Urine Creatinine COVID-19 (SANG) POC Glucose Blood Type Antibody Screen Crossmatch 11/17/19 11/17/19 11/17/19 10:09 10:09 10:34 WBC RBC Hgb Hct MCV MCH MCHC RDW Std Deviation RDW Coeff of Judi Plt Count MPV Immature Gran % (Auto) Neut % (Auto) Lymph % (Auto) [place] % (Auto) Eos % (Auto) Baso % (Auto) Absolute Neuts (auto) Absolute Lymphs (auto) Nucleated RBC % D-Dimer Quant (PE/DVT) Sodium Potassium Chloride Carbon Dioxide Anion Gap BUN Creatinine Estim Creat Clear Calc Est GFR (MDRD) Af Amer Est GFR (MDRD) Non-Af BUN/Creatinine Ratio Glucose Calcium Total Bilirubin 0.50 Direct Bilirubin 0.17 AST 10 L ALT 21 Alkaline Phosphatase 90 Troponin I B-Natriuretic Peptide 396.0 H Total Protein 7.5 Albumin 3.4 Globulin 4.1 Albumin/Globulin Ratio Ur Random Sodium Urine Creatinine COVID-19 (SANG) Not Detected POC Glucose Blood Type Antibody Screen Crossmatch 11/17/19 11/17/19 11/17/19 15:43 18:15 18:15 WBC RBC Hgb Hct MCV MCH MCHC RDW Std Deviation RDW Coeff of Judi Plt Count MPV Immature Gran % (Auto) Neut % (Auto) Lymph % (Auto) [place] % (Auto) Eos % (Auto) Baso % (Auto) Absolute Neuts (auto) Absolute Lymphs (auto) Nucleated RBC % D-Dimer Quant (PE/DVT) Sodium Potassium Chloride Carbon Dioxide Anion Gap BUN Creatinine Estim Creat Clear Calc Est GFR (MDRD) Af Amer Est GFR (MDRD) Non-Af BUN/Creatinine Ratio Glucose Calcium Total Bilirubin Direct Bilirubin AST ALT Alkaline Phosphatase Troponin I < 0.015 B-Natriuretic Peptide Total Protein Albumin Globulin Albumin/Globulin Ratio Ur Random Sodium 85 Urine Creatinine 67.40 COVID-19 (SANG) POC Glucose Blood Type Antibody Screen Crossmatch 11/17/19 11/17/19 11/17/19 18:18 19:30 21:51 WBC RBC Hgb Hct MCV MCH MCHC RDW Std Deviation RDW Coeff of Judi Plt Count MPV Immature Gran % (Auto) Neut % (Auto) Lymph % (Auto) [place] % (Auto) Eos % (Auto) Baso % (Auto) Absolute Neuts (auto) Absolute Lymphs (auto) Nucleated RBC % D-Dimer Quant (PE/DVT) Sodium Potassium Chloride Carbon Dioxide Anion Gap BUN Creatinine Estim Creat Clear Calc Est GFR (MDRD) Af Amer Est GFR (MDRD) Non-Af BUN/Creatinine Ratio Glucose Calcium Total Bilirubin Direct Bilirubin AST ALT Alkaline Phosphatase Troponin I < 0.015 B-Natriuretic Peptide Total Protein Albumin Globulin Albumin/Globulin Ratio Ur Random Sodium Urine Creatinine COVID-19 (SANG) POC Glucose 119 H 61 L Blood Type Antibody Screen Crossmatch 11/17/19 11/18/19 11/18/19 22:17 05:46 05:46 WBC 9.6 RBC 2.68 L Hgb 7.3 L Hct 25.0 L MCV 93.3 MCH 27.2 MCHC 29.2 L RDW Std Deviation 59.3 H RDW Coeff of Judi 17.6 H Plt Count 191 MPV 9.6 Immature Gran % (Auto) 2.200 H Neut % (Auto) 79.1 H Lymph % (Auto) 8.4 L [place] % (Auto) 6.8 Eos % (Auto) 3.3 Baso % (Auto) 0.2 Absolute Neuts (auto) 7.6 Absolute Lymphs (auto) 0.81 L Nucleated RBC % 0.2 D-Dimer Quant (PE/DVT) Sodium 142 Potassium 5.0 Chloride 115 H Carbon Dioxide 19.0 L Anion Gap 8 BUN 98 H Creatinine 3.58 H Estim Creat Clear Calc 19.75 Est GFR (MDRD) Af Amer 22 L Est GFR (MDRD) Non-Af 18 L BUN/Creatinine Ratio 27.4 H Glucose 162 H Calcium 7.9 L Total Bilirubin 0.50 Direct Bilirubin AST 10 L ALT 19 Alkaline Phosphatase 78 Troponin I B-Natriuretic Peptide Total Protein 6.7 Albumin 2.9 L Globulin 3.8 Albumin/Globulin Ratio 0.8 L Ur Random Sodium Urine Creatinine COVID-19 (SANG) POC Glucose 74 Blood Type Antibody Screen Crossmatch 11/18/19 11/18/19 06:43 08:00 WBC RBC Hgb Hct MCV MCH MCHC RDW Std Deviation RDW Coeff of Judi Plt Count MPV Immature Gran % (Auto) Neut % (Auto) Lymph % (Auto) [place] % (Auto) Eos % (Auto) Baso % (Auto) Absolute Neuts (auto) Absolute Lymphs (auto) Nucleated RBC % D-Dimer Quant (PE/DVT) Sodium Potassium Chloride Carbon Dioxide Anion Gap BUN Creatinine Estim Creat Clear Calc Est GFR (MDRD) Af Amer Est GFR (MDRD) Non-Af BUN/Creatinine Ratio Glucose Calcium Total Bilirubin Direct Bilirubin AST ALT Alkaline Phosphatase Troponin I B-Natriuretic Peptide Total Protein Albumin Globulin Albumin/Globulin Ratio Ur Random Sodium Urine Creatinine COVID-19 (SANG) POC Glucose 157 H Blood Type Pending Antibody Screen Pending Crossmatch See Detail Microbiology 11/18/19 04:20 Stool Stool Occult Blood (JOSE RAMON) - Final Occult Blood Positive Clinical Impression(s) from Imaging Studies Chest X-Ray 11/17/19 10:56 IMPRESSION: Hazy airspace disease/vascular congestion (likely early fluid overload) Cardiomegaly cardiac surgery Electronically Signed: Brice Conner, at 11:14 EDT Tel , Service support , Current Medications Acetaminophen (Tylenol) 650 mg PO Q6H PRN PRN PRN Reason: Pain Score 1-10/Temp > 100.7 F Albuterol/Ipratropium (Duoneb) 3 ml INHALATION Q4HWA.RT HAYES Last Admin: 11/18/19 06:55 Dose: 3 ml Documented by: Allopurinol (Zyloprim) 100 mg PO DAILYCM HAYES Amlodipine Besylate (Norvasc) 5 mg PO BID [facility] Last Admin: 11/17/19 22:19 Dose: 5 mg Documented by: Aspirin (Ecotrin) 81 mg PO DAILY@0800 [facility] Dextrose (D50w Syringe) 0 gm IV X1 PRN; Protocol PRN Reason: Hypoglycemia Enoxaparin Sodium (Lovenox) 120 mg SC DAILY [facility] Ferrous Sulfate (Ferrous Sulfate) 325 mg PO BIDCM [facility] Last Admin: 11/17/19 17:05 Dose: 325 mg Documented by: Fluoxetine HCl (Prozac) 40 mg PO DAILY [facility] Furosemide (Lasix) 20 mg IV BID@1000,1800 [facility] Glucagon () 1 mg IM .X1 PRN PRN Reason: Hypoglycemia Sodium Chloride () 250 mls @ 15 mls/hr IV .[id number] PRN PRN Reason: Saline Flush Sodium Chloride () 250 mls @ 15 mls/hr IV .[id number] PRN PRN Reason: Additional IVPB Infusion Pantoprazole Sodium 40 mg/ (Sodium Chloride) 110 mls @ 330 mls/hr IV Q12 [facility] Last Infusion: 11/17/19 22:30 Dose: Infused Documented by: Insulin Human Lispro (Humalog Kwikpen (Bkc)) 0 unit SC ACHS [facility]; Protocol Last Admin: 11/18/19 06:45 Dose: 1 units Documented by: Isosorbide Mononitrate (Imdur) 30 mg PO DAILY [facility] Metoprolol Tartrate (Lopressor (Beta Ayde)) 50 mg PO BID [facility] Last Admin: 11/17/19 22:19 Dose: 50 mg Documented by: Nitroglycerin (Nitrostat) 0.4 mg SUBLINGUAL Q5M PRN PRN Reason: CHEST Ondansetron HCl (Zofran) 4 mg IV Q8H PRN PRN PRN Reason: NAUSEA/VOMITING Sodium Chloride () 10 - 40 ml IV UD PRN PRN Reason: SALINE FLUSH Last Admin: 11/17/19 17:05 Dose: 10 ml Documented by: Assessment/Plan All Active Problems (Last Reviewed 11/11/19 @ 08:[address] Seth Michael MD) Upper GI bleed (Acute) Anemia (Acute) Dyspnea on exertion (Acute) RECOMMENDATIONS: 1. Wean supplemental oxygen to maintain saturations at or above 90%. 2. Encourage incentive spirometer use and mobilize patient as tolerated. 3. Continue diuretic therapy as tolerated by hemodynamics and renal function. 4. Await results of echocardiogram. 5. Continue BiPAP therapy on a nightly basis per outpatient regimen. 6. Monitor H&H closely, with plans to transfuse if hemoglobin drops below 7 g/dL. 7. Discontinue therapeutic Lovenox. IMPRESSIONS: 1. Acute hypoxemic respiratory insufficiency Likely secondary to acute decompensated heart failure with preserved ejection fraction. In addition, the patient's underlying anemia is likely contributing to his shortness of breath as well. Recommend continuing diuretic therapy as tolerated by hemodynamics and renal function. Wean supplemental oxygen to maintain saturations at or above 90%. Encourage incentive spirometer use and mobilize patient as tolerated. 2. History of obstructive sleep apnea Continue BiPAP therapy per outpatient regimen with naps and nightly. 3. Acute on chronic kidney disease Nephrology has been consulted to evaluate the patient. I would recommend continued attempts at diuresis. The patient may require eventual dialysis once again. 4. History of iron deficiency anemia The patient was recently admitted to the hospital and was instructed to continue acid suppression and follow-up with general surgery on an outpatient basis for potential EGD. Recommend monitoring H&H closely, with plans to transfuse if hemoglobin drops below 7 g/dL. 5. History of coronary artery disease status post CABG/obesity/history of tobacco dependency in remission/diabetes mellitus/hypertension/hyperlipidemia Complicates care, management, recovery and prognosis. Continue home medications as indicated. This note was generated with [employer] dictation software. It may contain incorrect words, spelling, and punctuation that were not noted in checking the note before signing. Inpatient E&M: 10798 Init Hosp L3
--- NOTE | 2019-11-18 09:08 | PCM.CONS.R ---
Consultation - Renal PCP/ Referring MD: Requesting physician: [] Primary care physician: Dr. Davon Lemus MD - History of Present Illness History of Present Illness: The patient is a 69 year old M PMH of CKD stage 4 with baseline SCr ~ 2.6 mg/dL, CHF with preserved EF, DM, HTN Pt presented with progressive SOB and orthopnea. Chest xray showed cardiomegaly and vascular congestions .Also D-dimer was found to be elevated but no CT angio done to rule in/out PE. Pt was admitted for CHD exacerbation and started on lasix 40 BID. Also started on lovenox Renal team was consulted for EDGARDO on CKD. Pt presented with SCr 3.1 mg/dl and increased to 3.5 mg/dL Pt had 1200 CC UOP since admission. Weight 114 kg this am Pt was on HD for 2.5 months last year but kidney function improve and was able to come off HD ROS: 12 systems review is negative except SOB[] - Allergies Allergies: Allergies carvedilol [From Coreg] Allergy (Severe, Verified 11/17/19 10:01) vomiting valsartan [From Diovan] Allergy (Severe, Verified 11/17/19 14:07) Possible angioedema, throat swelling sertraline HCl [From Zoloft] Allergy (Verified 11/17/19 13:56) Unknown makes me mean bupropion HCl [From Wellbutrin] Adverse Reaction (Verified 11/17/19 10:01) gets mean citalopram Adverse Reaction (Verified 11/17/19 10:01) Other gabapentin Adverse Reaction (Verified 11/17/19 10:01) Other - Current Medications Current Medications: Current Medications Acetaminophen (Tylenol) 650 mg PO Q6H PRN PRN PRN Reason: Pain Score 1-10/Temp > 100.7 F Albuterol/Ipratropium (Duoneb) 3 ml INHALATION Q4HWA.RT [facility] Last Admin: 11/18/19 06:55 Dose: 3 ml Documented by: Allopurinol (Zyloprim) 100 mg PO DAILYCM [facility] Amlodipine Besylate (Norvasc) 5 mg PO BID [facility] Last Admin: 11/17/19 22:19 Dose: 5 mg Documented by: Aspirin (Ecotrin) 81 mg PO DAILY@0800 [facility] Dextrose (D50w Syringe) 0 gm IV X1 PRN; Protocol PRN Reason: Hypoglycemia Enoxaparin Sodium (Lovenox) 120 mg SC DAILY [facility] Ferrous Sulfate (Ferrous Sulfate) 325 mg PO BIDCM [facility] Last Admin: 11/17/19 17:05 Dose: 325 mg Documented by: Fluoxetine HCl (Prozac) 40 mg PO DAILY [facility] Furosemide (Lasix) 20 mg IV BID@1000,1800 [facility] Glucagon () 1 mg IM .X1 PRN PRN Reason: Hypoglycemia Sodium Chloride () 250 mls @ 15 mls/hr IV .[id number] PRN PRN Reason: Saline Flush Sodium Chloride () 250 mls @ 15 mls/hr IV .[id number] PRN PRN Reason: Additional IVPB Infusion Pantoprazole Sodium 40 mg/ (Sodium Chloride) 110 mls @ 330 mls/hr IV Q12 [facility] Last Infusion: 11/17/19 22:30 Dose: Infused Documented by: Insulin Human Lispro (Humalog Kwikpen (Bkc)) 0 unit SC ACHS [facility]; Protocol Last Admin: 11/18/19 06:45 Dose: 1 units Documented by: Isosorbide Mononitrate (Imdur) 30 mg PO DAILY [facility] Metoprolol Tartrate (Lopressor (Beta Ayde)) 50 mg PO BID [facility] Last Admin: 11/17/19 22:19 Dose: 50 mg Documented by: Nitroglycerin (Nitrostat) 0.4 mg SUBLINGUAL Q5M PRN PRN Reason: CHEST Ondansetron HCl (Zofran) 4 mg IV Q8H PRN PRN PRN Reason: NAUSEA/VOMITING Sodium Chloride () 10 - 40 ml IV UD PRN PRN Reason: SALINE FLUSH Last Admin: 11/17/19 17:05 Dose: 10 ml Documented by: - Past Medical History Past Medical History (Chronic Problems): Chronic Problems (Last Reviewed 11/11/19 @ 08:[address] Seth Michael MD) Chronic kidney disease (Chronic) Kidney disease, chronic, stage IV (GFR 15-29 ml/min) (Chronic) COPD (chronic obstructive pulmonary disease) (Chronic) Sleep apnea (Chronic) Nephrotic range proteinuria (Chronic) Pure hypercholesterolemia (Chronic) Type 2 diabetes mellitus (Chronic) Presence of stent in coronary artery (Chronic ~08/25/14) 07/18/10, PTCA/stent to mid to distal LCx artery; 08/17/10 PTCA/stent to proximal to mid RCA; PTCA of distal RCA with DEX September 2010; PTCA with EULALIO to mid distal AV groove left CFX 08/13 Essential hypertension (Chronic) Nonrheumatic aortic (valve) stenosis (Chronic) Nonspecific abnormal unspecified cardiovascular function study (Chronic) Diastolic dysfunction (Chronic) Other fdc (current) drug therapy (Chronic) Atherosclerotic heart disease of [place] coronary artery without angina pectoris (Chronic) S/P multivessel PTCA/stent and subsequent CABG with SVG to LCx, RCA and diagonal branch with subsequent SVG graft closure to the LCx and diagonal branch; S/P CABG x 3 (Chronic ~07/21/12) CABG-SVG to diagonal, SVG to obtuse marginal & SVG to PDA 07/12; GERD (gastroesophageal reflux disease) (Chronic) Anxiety (Chronic) - Past Surgical History Surgical History: angioplasty, arthroscopy, knee, coronary bypass surgery, - - Patient status post CABG x3, serial PCI, bilateral total knee replacement, rotator cuff repair, partial colectomy, cholecystectomy, carpal tunnel surgery. - Social History Smoking Status: Former smoker Alcohol: None Drugs: None - Family History Maternal Family History: Family History (Last Reviewed 11/10/19 @ 18:[address] Iman Patrick MD) Father CAD (coronary artery disease) Afib Aortic valve replaced Mother Cancer Son Lupus History Items: Cancer Paternal Family History: Family History (Last Reviewed 11/10/19 @ 18:[address] Iman Patrick MD) Father CAD (coronary artery disease) Afib Aortic valve replaced Mother Cancer Son Lupus History Items: High Cholesterol, Heart Disease - Atrial fibrillation; valvular heart disease status post aVR; , Hypertension - Physical Exam Vitals/I&O's: Vital Signs Temp Pulse Resp BP Pulse Ox 98.1 F 79 24 H 147/74 H 96 11/18/19 08:09 11/18/19 08:09 11/18/19 08:09 11/18/19 08:09 11/18/19 08:09 Oxygen Flow Rate (L/min) 4 Oxygen Delivery Method Nasal Cannula Weight: 114 kg Body Mass Index (BMI) 37.2 Finger Stick Blood Glucose 269 Intake and Output for Last 24 Hours 11/16/19 11/17/19 11/18/19 23:59 23:59 23:59 Intake Total 710 / 710 120 / 120 Output Total 1125 / 1125 425 / 425 Balance -415 / -415 -305 / -305 General: Alert, Oriented x3 HEENT: Atraumatic Oral: Moist Mucosa Neck: Supple, No JVD Lungs: - - B/L lungs bases crackles Cardiovascular: Regular rate, Regular Rhythm, Normal S1, Normal S2 Abdomen: Bowel Sounds Present, Non Tender, Distended Extremities: No clubbing, No cyanosis, No edema Musculoskeletal: No Tenderness to Palpation of Joints or Extremities Lymphatic: No Cervical, Supraclavicular, or Inguinal Adenopathy Neurological: Cranial nerves II-XII grossly intact, Neuro grossly intact Psych/Mental Status: Appropriate Microbiology Past 72 Hours 11/18/19 04:20 Stool Stool Occult Blood (JOSE RAMON) - Final Occult Blood Positive Laboratory Results 11/17/19 10:09: WBC 11.1 H, RBC 3.06 L, Hgb 8.3 L, Hct 28.4 L, MCV 92.8, MCH 27.1, MCHC 29.2 L, RDW Std Deviation 58.2 H, RDW Coeff of Judi 17.5 H, Plt Count 207, MPV 9.9, Immature Gran % (Auto) 1.600 H, Neut % (Auto) 80.5 H, Lymph % (Auto) 7.8 L, [place] % (Auto) 6.3, Eos % (Auto) 3.5, Baso % (Auto) 0.3, Absolute Neuts (auto) 8.9 H, Absolute Lymphs (auto) 0.87, Nucleated RBC % 0.2 11/17/19 10:09: D-Dimer Quant (PE/DVT) 0.86 H* 11/17/19 10:09: Sodium 143, Potassium 4.9, Chloride 116 H, Carbon Dioxide 19.0 L, Anion Gap 8, BUN 95 H, Creatinine 3.16 H, Estim Creat Clear Calc 21.65, Est GFR (MDRD) Af Amer 25 L, Est GFR (MDRD) Non-Af 21 L, BUN/Creatinine Ratio 30.1 H, Glucose 105, Calcium 8.7, Troponin I < 0.015 11/17/19 10:09: B-Natriuretic Peptide 396.0 H 11/17/19 10:09: Total Bilirubin 0.50, Direct Bilirubin 0.17, AST 10 L, ALT 21, Alkaline Phosphatase 90, Total Protein 7.5, Albumin 3.4, Globulin 4.1 11/17/19 10:34: COVID-19 (SANG) Not Detected 11/17/19 15:43: Troponin I < 0.015 11/17/19 18:15: Ur Random Sodium 85 11/17/19 18:15: Urine Creatinine 67.40 11/17/19 18:18: POC Glucose 119 H 11/17/19 19:30: Troponin I < 0.015 11/17/19 21:51: POC Glucose 61 L 11/17/19 22:17: POC Glucose 74 11/18/19 05:46: WBC 9.6, RBC 2.68 L, Hgb 7.3 L, Hct 25.0 L, MCV 93.3, MCH 27.2, MCHC 29.2 L, RDW Std Deviation 59.3 H, RDW Coeff of Judi 17.6 H, Plt Count 191, MPV 9.6, Immature Gran % (Auto) 2.200 H, Neut % (Auto) 79.1 H, Lymph % (Auto) 8.4 L, [place] % (Auto) 6.8, Eos % (Auto) 3.3, Baso % (Auto) 0.2, Absolute Neuts (auto) 7.6, Absolute Lymphs (auto) 0.81 L, Nucleated RBC % 0.2 11/18/19 05:46: Sodium 142, Potassium 5.0, Chloride 115 H, Carbon Dioxide 19.0 L, Anion Gap 8, BUN 98 H, Creatinine 3.58 H, Estim Creat Clear Calc 19.75, Est GFR (MDRD) Af Amer 22 L, Est GFR (MDRD) Non-Af 18 L, BUN/Creatinine Ratio 27.4 H, Glucose 162 H, Calcium 7.9 L, Total Bilirubin 0.50, AST 10 L, ALT 19, Alkaline Phosphatase 78, Total Protein 6.7, Albumin 2.9 L, Globulin 3.8, Albumin/Globulin Ratio 0.8 L 11/18/19 06:43: POC Glucose 157 H 11/18/19 08:00: Blood Type Pending, Antibody Screen Pending, Crossmatch See Detail Current Medications Acetaminophen (Tylenol) 650 mg PO Q6H PRN PRN PRN Reason: Pain Score 1-10/Temp > 100.7 F Albuterol/Ipratropium (Duoneb) 3 ml INHALATION Q4HWA.RT [facility] Last Admin: 11/18/19 06:55 Dose: 3 ml Documented by: [facility]) [facility] Amlodipine Besylate (Norvasc) 5 mg PO BID [facility] Last Admin: 11/17/19 22:19 Dose: 5 mg Documented by: Aspirin (Ecotrin) 81 mg PO DAILY@0800 [facility] Dextrose (D50w Syringe) 0 gm IV X1 PRN; Protocol PRN Reason: Hypoglycemia Enoxaparin Sodium (Lovenox) 120 mg SC DAILY [facility] Ferrous Sulfate ([facility]ous Sulfate) [facility] Last Admin: 11/17/19 17:05 Dose: 325 mg Documented by: Fluoxetine HCl (Prozac) 40 mg PO DAILY [facility] Furosemide (Lasix) 20 mg IV BID@1000,1800 [facility] Glucagon () 1 mg IM .X1 PRN PRN Reason: Hypoglycemia Sodium Chloride () 250 mls @ 15 mls/hr IV .[id number] PRN PRN Reason: Saline Flush Sodium Chloride () 250 mls @ 15 mls/hr IV .[id number] PRN PRN Reason: Additional IVPB Infusion Pantoprazole Sodium 40 mg/ (Sodium Chloride) 110 mls @ 330 mls/hr IV Q12 [facility] Last Infusion: 11/17/19 22:30 Dose: Infused Documented by: Insulin Human Lispro (Humalog Kwikpen (Bkc)) 0 unit SC ACHS [facility]; Protocol Last Admin: 11/18/19 06:45 Dose: 1 units Documented by: Isosorbide Mononitrate (Imdur) 30 mg PO DAILY [facility] Metoprolol Tartrate (Lopressor (Beta Ayde)) 50 mg PO BID [facility] Last Admin: 11/17/19 22:19 Dose: 50 mg Documented by: Nitroglycerin (Nitrostat) 0.4 mg SUBLINGUAL Q5M PRN PRN Reason: CHEST Ondansetron HCl (Zofran) 4 mg IV Q8H PRN PRN PRN Reason: NAUSEA/VOMITING Sodium Chloride () 10 - 40 ml IV UD PRN PRN Reason: SALINE FLUSH Last Admin: 11/17/19 17:05 Dose: 10 ml Documented by: Assessment/Plan All Active Problems (Last Reviewed 11/11/19 @ 08:[address] Seth Michael MD) Upper GI bleed (Acute) Anemia (Acute) Dyspnea on exertion (Acute) 1- EDGARDO on CKD stage 4 . CKD from DNP . baseline SCr 2.5-2.6 mg/dL EDGARDO is likely CRS-1 SCr increase since admission from 3.1->3.5. SCr is expected to rise in CRS until it improves with diuresis Will increase lasix dose again to 60 mg IV BID No need for [employer] If Kidney function does not improve with diuresis then patient needs to be started again on HD to avoid further CHF exacerbation Avoid ACEI/ARB for now check RFP in am 2- CHF exacerbation. Pt said he has been compliant with his diet and diuretic. CHF exacerbation likely from advanced CKD in patient with diuresis as above daily weight. low Na diet and fluid restriction If kidney function does not improve with diuresis -> then he needs to be on HD again 3- HTN: BP is Ok. monitor with diuresis Thank you for the consult Renal team will continue to follow Carolyn Joyce MD
[2019-11-18] MEDS: amLODIPine 5 MG Tablet PO ×2 (11:16→21:50)
[2019-11-18] MEDS: FLUoxetine 20 MG Capsule 40 MG PO (11:16)
[2019-11-18] MEDS: Metoprolol Tartrate 50 MG Tablet PO ×2 (11:17→21:50)
[2019-11-18] MEDS: Furosemide 100 MG/10 ML Vial 60 MG IV ×2 (11:17→16:52)
[2019-11-18] MEDS: Ferrous Sulfate 325 MG Tablet PO ×2 (11:17→16:52)
[2019-11-18] MEDS: Isosorbide Mononitrate 30 MG Tablet PO (11:17)
[2019-11-18] MEDS: Aspirin E.C. 81 MG Tablet PO (11:17)
[2019-11-18] MEDS: Allopurinol 100 MG Tablet PO (11:17)
[2019-11-18] MEDS: 0.9% Saline Lock 10 ML Syringe IV ×2 (11:18→21:50)
--- NOTE | 2019-11-18 11:43 | PN_ITS ---
Reason for Visit: Follow-up on hypoxia/acute CHF/anemia Subjective: Patient was seen and examined. He still feels very SOB. Denies chest pain, palpitations, dizziness. He remains on 4L oxygen. His stool occult blood was positive. He dropped 1 g in hemoglobin from 8.3 to 7.3 Objective: Physical exam: General: Alert, Oriented x3, Cooperative, No apparent distress HEENT: Atraumatic, PERRLA, EOMI, Normocephalic Oral: Moist Mucosa Neck: Supple Lungs: Diminished, - - on 4L oxygen Cardiovascular: Regular rate, Regular Rhythm, Normal S1, Normal S2, No murmurs Abdomen: Bowel Sounds Present, Soft, Non Tender, Non-Distended, No Hepato- splenomegaly Extremities: Edema - Bilateral pedal edema +1 Skin: No rashes Musculoskeletal: No Tenderness to Palpation of Joints or Extremities Lymphatic: No Cervical, Supraclavicular, or Inguinal Adenopathy Neurological: Cranial nerves II-XII grossly intact, Neuro grossly intact Psych/Mental Status: Normal Affect, Appropriate Vitals/I&O's: Vital Signs Temp Pulse Resp BP Pulse Ox 97.7 F L 72 20 H 147/70 H 97 11/18/19 11:12 11/18/19 11:17 11/18/19 11:12 11/18/19 11:12 11/18/19 11:12 Oxygen Flow Rate (L/min) 4 Oxygen Delivery Method Nasal Cannula Weight: 114 kg Body Mass Index (BMI) 37.2 Finger Stick Blood Glucose 269 Intake and Output for Last 24 Hours 11/16/19 11/17/19 11/18/19 23:59 23:59 23:59 Intake Total 710 / 710 360 / 360 Output Total 1125 / 1125 825 / 825 Balance -415 / -415 -465 / -465 Microbiology Past 72 Hours 11/18/19 04:20 Stool Stool Occult Blood (JOSE RAMON) - Final Occult Blood Positive Laboratory Results 11/17/19 10:09: Total Bilirubin 0.50, Direct Bilirubin 0.17, AST 10 L, ALT 21, Alkaline Phosphatase 90, Total Protein 7.5, Albumin 3.4, Globulin 4.1 11/17/19 10:34: COVID-19 (SANG) Not Detected 11/17/19 15:43: Troponin I < 0.015 08/18/20 18:15: Ur Random Sodium 85 08/18/20 18:15: Urine Creatinine 67.40 11/17/19 18:18: POC Glucose 119 H 11/17/19 19:30: Troponin I < 0.015 11/17/19 21:51: POC Glucose 61 L 11/17/19 22:17: POC Glucose 74 11/18/19 05:46: WBC 9.6, RBC 2.68 L, Hgb 7.3 L, Hct 25.0 L, MCV 93.3, MCH 27.2, MCHC 29.2 L, RDW Std Deviation 59.3 H, RDW Coeff of Judi 17.6 H, Plt Count 191, MPV 9.6, Immature Gran % (Auto) 2.200 H, Neut % (Auto) 79.1 H, Lymph % (Auto) 8.4 L, [place] % (Auto) 6.8, Eos % (Auto) 3.3, Baso % (Auto) 0.2, Absolute Neuts (auto) 7.6, Absolute Lymphs (auto) 0.81 L, Nucleated RBC % 0.2 11/18/19 05:46: Sodium 142, Potassium 5.0, Chloride 115 H, Carbon Dioxide 19.0 L , Anion Gap 8, BUN 98 H, Creatinine 3.58 H, Estim Creat Clear Calc 19.75, Est GFR (MDRD) Af Amer 22 L, Est GFR (MDRD) Non-Af 18 L, BUN/Creatinine Ratio 27.4 H , Glucose 162 H, Calcium 7.9 L, Total Bilirubin 0.50, AST 10 L, ALT 19, Alkaline Phosphatase 78, Total Protein 6.7, Albumin 2.9 L, Globulin 3.8, Albumin/Globulin Ratio 0.8 L 11/18/19 06:43: POC Glucose 157 H 11/18/19 08:00: Blood Type B POSITIVE, Antibody Screen NEGATIVE, Crossmatch See Detail Current Medications Acetaminophen (Tylenol) 650 mg PO Q6H PRN PRN PRN Reason: Pain Score 1-10/Temp > 100.7 F Albuterol/Ipratropium (Duoneb) 3 ml INHALATION Q4HWA.RT [facility] Last Admin: 11/18/19 10:56 Dose: 3 ml Documented by: Allopurinol (Zyloprim) 100 mg PO DAILYCM [facility] Last Admin: 11/18/19 11:17 Dose: 100 mg Documented by: Amlodipine Besylate (Norvasc) 5 mg PO BID [facility] Last Admin: 11/18/19 11:16 Dose: 5 mg Documented by: Aspirin (Ecotrin) 81 mg PO DAILY@0800 [facility] Last Admin: 11/18/19 11:17 Dose: 81 mg Documented by: Dextrose (D50w Syringe) 0 gm IV X1 PRN; Protocol PRN Reason: Hypoglycemia Ferrous Sulfate ([facility]) [facility] Last Admin: 11/18/19 11:17 Dose: 325 mg Documented by: Fluoxetine HCl (Prozac) 40 mg PO DAILY [facility] Last Admin: 11/18/19 11:16 Dose: 40 mg Documented by: Furosemide (Lasix) 60 mg IV BID@1000,1800 [facility] Last Admin: 11/18/19 11:17 Dose: 60 mg Documented by: Glucagon () 1 mg IM .X1 PRN PRN Reason: Hypoglycemia Sodium Chloride () 250 mls @ 15 mls/hr IV .[id number] PRN PRN Reason: Saline Flush Sodium Chloride () 250 mls @ 15 mls/hr IV .[id number] PRN PRN Reason: Additional IVPB Infusion Pantoprazole Sodium 40 mg/ (Sodium Chloride) 110 mls @ 330 mls/hr IV Q12 [facility] Last Admin: 11/18/19 11:17 Dose: 330 mls/hr Documented by: Insulin Human Lispro (Humalog Kwikpen (Bkc)) 0 unit SC ACHS [facility]; Protocol Last Admin: 11/18/19 11:31 Dose: 2 units Documented by: Isosorbide Mononitrate (Imdur) 30 mg PO DAILY [facility] Last Admin: 11/18/19 11:17 Dose: 30 mg Documented by: Metoprolol Tartrate (Lopressor (Beta Ayde)) 50 mg PO BID [facility] Last Admin: 11/18/19 11:17 Dose: 50 mg Documented by: Nitroglycerin (Nitrostat) 0.4 mg SUBLINGUAL Q5M PRN PRN Reason: CHEST Ondansetron HCl (Zofran) 4 mg IV Q8H PRN PRN PRN Reason: NAUSEA/VOMITING Sodium Chloride () 10 - 40 ml IV UD PRN PRN Reason: SALINE FLUSH Last Admin: 11/18/19 11:18 Dose: 20 ml Documented by: STROKE Vital Signs/Narrative: Vital Signs Temp Pulse Resp BP Pulse Ox 11/18/19 11:17 72 11/18/19 11:12 97.7 F L 72 20 H 147/70 H 97 11/18/19 10:59 72 18 11/18/19 08:09 98.1 F 79 24 H 147/74 H 96 Medical Necessity - Tobacco Use Smoking Status: Former smoker Tobacco Use: Non-smoker Assessment/Plan All Active Problems (Last Reviewed 11/11/19 @ 08:[address] Seth Michael MD) Upper GI bleed (Acute) Anemia (Acute) Dyspnea on exertion (Acute) 69 year old M with multiple comorbidities significant for chronic diastolic CHF/CAD status post CABG and stents/stage IV CKD who was recently admitted on 11/10/19 and discharged on 11/11/19 comes in with worsening shortness of breath. 1. Acute hypoxic respiratory failure, multifactorial Likely secondary to acute on chronic diastolic CHF versus progressive aortic stenosis vs fluid overload from EDGARDO on CKD vs probable PE, in the setting of acute on chronic anemia Remains the same on 4 L of oxygen, continue to wean off for SPO2 more than 94% 2. Acute on chronic diastolic CHF, likely worsened in the setting of progressive aortic stenosis and anemia Cardiology and nephrology consulted. On Lasix 60mg IV BID 3. EDGARDO on CKD stage IV, slightly worse, Cr is 3.58 today Admitting creatinine of 3.16, previous creatinine 2.68 Nephrology consulted, will follow blood work in a.m. 4. Elevated d-dimer, unable to do CTA of the chest on account of EDGARDO to rule out PE Will DC therapeutic Lovenox on account of drop in Hb and possible worsening GI bleed Pulmonology consulted - discussed. 5. Probable acute on chronic GI bleed, recent admission on 11/09-11/10 on IV PPI. Pt is also on po iron. Will continue to monitor 6. Acute on chronic iron deficiency anemia secondary to #4, Drop in Hb 1g. Will transfuse 1 unit of pRBC, HH q12rly Continue on oral iron 7. 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 DASHA on BiPAP 9. CAD status post CABG, status post stents/hypertension, remains stable Continue on amlodipine, aspirin, isosorbide, metoprolol 10. DVT PPx- SCDs Inpatient E&M: 99191 Subs Hosp L2
[2019-11-18 12:35] LABS: Bedside Glucose 240 mg/dL (70-110)
--- NOTE | 2019-11-18 14:37 | CASEMGMT ---
Patient has a Healthcare Living Will and a Healthcare Power of User Interface Developer on file at [facility]. His Diana is his Healthcare Power of User Interface Developer. Sarita DONIS
--- NOTE | 2019-11-18 14:39 | CASEMGMT ---
Readmission chart review: Pt initially admitted 11/09-11/11/2019 for GI bleed, anemia with a HGB of 9.4. Consult to [place] who stated pt to be d/c'd home on acid suppression med and f/u in 1 week to be scheduled for OP EGD. Pt returned on 11/17/2019 for SOB with a sat in the 80's. Pt with a HGB of 8.3 upon admission and dropping to 7.3 by the next am. Pt with a hx of OP HD last year and elev BUN/creatinine at this time, nephro consulted as well as pulmonology. Pt does have hx of COPD and sleep apnea. CM to follow for any further discharge planning/needs. Pt does have [employer] benefits as well and clinicals to be faxed at this time. Jaylan STRICKLAND CM
[2019-11-18 17:31] LABS: Bedside Glucose 254 mg/dL (70-110)
--- NOTE | 2019-11-18 18:07 | CON.PCM_ITS ---
Problem List (1) Atherosclerotic heart disease of [place] coronary artery without angina pectoris Status: Chronic Qualifiers: Comment: S/P multivessel PTCA/stent and subsequent CABG with SVG to LCx, RCA and diagonal branch with subsequent SVG graft closure to the LCx and diagonal branch; (2) Diastolic dysfunction Status: Chronic (3) Nonrheumatic aortic (valve) stenosis Status: Chronic Reason for Consult Date of Consultation: 11/18/19 Reason for Consultation: Congestive heart failure History of Present Illness: KYLE WOMACK, is a 69 year old white male with past medical history of coronary artery disease status post CABG, CKD for which she was on hemodialysis at one point and was then able to come off hemodialysis, aortic stenosis for which he is also following with [facility] for possible TAVR coming to [facility] with shortness of breath, abdominal distention and lower extremity edema. He also had acute on chronic renal insufficiency. He is being diuresed with IV Lasix and says that he is making good urine output. His symptoms have improved significantly since admission. He had a 2D echo today which revealed preserved EF and mild to moderate aortic stenosis. He also has anemia with a hemoglobin today of 7.3. Patient was found to have melena at recent admission. Patient continues to have melanotic stools. He was supposed to have endoscopy as an outpatient. Review of systems: All systems reviewed. All else is negative except that in HPI. Past Medical History Allergies/Adverse Reactions: Allergies carvedilol [From Coreg] Allergy (Severe, Verified 11/17/19 10:01) vomiting valsartan [From Diovan] Allergy (Severe, Verified 11/17/19 14:07) Possible angioedema, throat swelling sertraline HCl [From Zoloft] Allergy (Verified 11/17/19 13:56) Unknown makes me mean bupropion HCl [From Wellbutrin] Adverse Reaction (Verified 11/17/19 10:01) gets mean citalopram Adverse Reaction (Verified 11/17/19 10:01) Other gabapentin Adverse Reaction (Verified 11/17/19 10:01) Other Home Medications: Ambulatory Orders Medication Instructions Recorded Nitroglycerin (INPATIENT USE) 0.4 mg SUBLINGUAL Q5M PRN 10/27/13 [Nitrostat] berberine-herbal comb no.18 2 cap PO BID cap 11/26/18 Allopurinol 100 mg PO DAILY 02/25/19 Aspirin E.C. [Ecotrin] 81 mg PO DAILY@0800 02/25/19 Astaxanthin 4 mg PO DAILY 02/25/19 Fluoxetine HCl 40 mg PO DAILY 02/25/19 Insulin Aspart [Novolog Flexpen] 36 units SUBCUT TIDCM 02/25/19 isosorbide mononitrate 30 mg 30 mg PO DAILY #90 tab 05/04/19 tablet,extended release 24 hr amlodipine 5 mg tablet 5 mg PO BID #180 tab 05/25/19 Furosemide [Lasix] 80 mg PO BID 11/10/19 Insulin Glargine [Lantus SoloStar 40 units SUBCUT BID 11/10/19 Pen] Metoprolol Tartrate [Lopressor 50 mg PO BID 11/10/19 (beta yana)] Ubidecarenone [Co Q-10] 400 mg PO BID 11/10/19 Ferrous Sulfate 325 mg PO BIDCM #60 tab 11/11/19 Pantoprazole Sodium [Protonix] 40 mg PO DAILY #30 tab 11/11/19 Past Medical History (Chronic Problems): Chronic Problems (Last Reviewed 11/11/19 @ 08:[address] Seth Michael MD) Chronic kidney disease (Chronic) Kidney disease, chronic, stage IV (GFR 15-29 ml/min) (Chronic) COPD (chronic obstructive pulmonary disease) (Chronic) Sleep apnea (Chronic) Nephrotic range proteinuria (Chronic) Pure hypercholesterolemia (Chronic) Type 2 diabetes mellitus (Chronic) Presence of stent in coronary artery (Chronic ~08/25/14) 07/18/10, PTCA/stent to mid to distal LCx artery; 08/17/10 PTCA/stent to proximal to mid RCA; PTCA of distal RCA with DEX September 2010; PTCA with EULALIO to mid distal AV groove left CFX 08/13 Essential hypertension (Chronic) Nonrheumatic aortic (valve) stenosis (Chronic) Nonspecific abnormal unspecified cardiovascular function study (Chronic) Diastolic dysfunction (Chronic) Other nursing home (current) drug therapy (Chronic) Atherosclerotic heart disease of [place] coronary artery without angina pectoris (Chronic) S/P multivessel PTCA/stent and subsequent CABG with SVG to LCx, RCA and diagonal branch with subsequent SVG graft closure to the LCx and diagonal branch; S/P CABG x 3 (Chronic ~07/21/12) CABG-SVG to diagonal, SVG to obtuse marginal & SVG to PDA 07/12; GERD (gastroesophageal reflux disease) (Chronic) Anxiety (Chronic) Surgical History: angioplasty, arthroscopy, knee, coronary bypass surgery, - - Patient status post CABG x3, serial PCI, bilateral total knee replacement, rotator cuff repair, partial colectomy, cholecystectomy, carpal tunnel surgery. Psychiatric History: No pertinent psych hx - *Family History Maternal Family History: Family History (Last Reviewed 11/10/19 @ 18:[address] Iman Patrick MD) Father CAD (coronary artery disease) Afib Aortic valve replaced Mother Cancer Son Lupus History Items: Cancer Paternal Family History: Family History (Last Reviewed 11/10/19 @ 18:[address] Iman Patrick MD) Father CAD (coronary artery disease) Afib Aortic valve replaced Mother Cancer Son Lupus History Items: High Cholesterol, Heart Disease - Atrial fibrillation; valvular heart disease status post aVR; , Hypertension Smoking Status: Former smoker Tobacco Use: Non-smoker Alcohol: None Drugs: None Objective: Vital Signs Temp Pulse Resp BP Pulse Ox 98.3 F 69 21 H 146/83 H 96 11/18/19 15:59 11/18/19 16:05 11/18/19 16:05 11/18/19 15:59 11/18/19 15:59 Oxygen Flow Rate (L/min) 4 Oxygen Delivery Method Nasal Cannula Weight: 251 lb 5.231 oz Body Mass Index (BMI) 37.2 Finger Stick Blood Glucose 269 Intake and Output for Last 24 Hours 11/16/19 11/17/19 11/18/19 23:59 23:59 23:59 Intake Total 710 / 710 1350 / 1350 Output Total 1125 / 1125 1925 / 1925 Balance -415 / -415 -575 / -575 General: Awake, Alert, Oriented x 3 HEENT: Atraumatic Oral: Moist Mucosa Neck: Supple Lungs: Rales - Rohith Bases Cardiovascular: Regular Rhythm Abdomen: Obese Extremities: Bilateral Edema +2 Skin: No Rashes Psych/Mental Status: Appropriate 11/17/19 19:30: Troponin I < 0.015 11/18/19 05:46: WBC 9.6, RBC 2.68 L, Hgb 7.3 L, Hct 25.0 L, MCV 93.3, MCH 27.2, MCHC 29.2 L, Plt Count 191, MPV 9.6, Immature Gran % (Auto) 2.200 H, Neut % (Auto) 79.1 H, Lymph % (Auto) 8.4 L, Coleman % (Auto) 6.8, Eos % (Auto) 3.3, Baso % (Auto) 0.2, Absolute Neuts (auto) 7.6, Nucleated RBC % 0.2 11/18/19 05:46: Sodium 142, Potassium 5.0, Chloride 115 H, Carbon Dioxide 19.0 L , Anion Gap 8, BUN 98 H, Creatinine 3.58 H, Est GFR (MDRD) Af Amer 22 L, Est GFR (MDRD) Non-Af 18 L, BUN/Creatinine Ratio 27.4 H, Glucose 162 H, Calcium 7.9 L, Total Bilirubin 0.50 Rhythm: EKG: ECHO: Stress Test: Cardiac Cath: PCI: CT Surgery: Holter monitor: EPS: PPM: CXR: Chest CT Scan: Assessment/Plan 1. Shortness of breath: Appears to be multifactorial secondary to anemia, diastolic congestive heart failure, acute on chronic renal failure. Patient appears to be responding to IV diuresis. Continue this for now. If his volume status becomes hard to manage without dialysis then he may require hemodialysis as mentioned by the director of collections and archives. 2. Aortic stenosis: Does not appear to be an acute issue at this time. It does not appear to be at a stage where he needs this to be fixed in the near future as well. He will probably need a repeat echo once his acute issues settle down. 3. Coronary artery disease: Continue present management. Patient appears to be stable from the standpoint.
[2019-11-18 18:15] LABS: Hematocrit 29.4 % (40-54); Hemoglobin 8.9 g/dL (13.0-16.5)
[2019-11-18 22:30] LABS: Bedside Glucose 164 mg/dL (70-110)
[2019-11-18 22:39] LABS: Hematocrit 26.9 % (40-54); Hemoglobin 8.1 g/dL (13.0-16.5)
[2019-11-19] VITALS (16 sets, daily range): BP systolic 132–164; BP diastolic 64–83; PULSE 65–105; RESP 18–20; TEMP 36.6–37.2; O2SAT 90–98
[2019-11-19 06:35] LABS: Absolute Lymphocyte Count 0.81 X10^3/uL (0.83-4.51); Absolute Neutrophil Count 7.8 X10^3/uL (2.0-7.7); Basophil# 0.03 X10^3/uL; Basophil% 0.3 % (0-1); Eosinophil# 0.37 X10^3/uL; Eosinophils% 3.6 % (0-5); Hematocrit 27.6 % (40-54); Hemoglobin 8.4 g/dL (13.0-16.5); Lymphocyte # 0.81 X10^3/ul (4.0); Mean Corp Hgb Conc 30.4 g/dL (32-36); Mean Corpuscular Hgb 27.9 pg (27.0-32.0); Mean Corpuscular Volume 91.7 fL (80-94); Mean Platelet Vol. 9.9 fl (6.2-12.0); Monocyte# 0.89 X10^3/uL; Monocyte% 8.7 % (0-10); NRBC Flagged by Analyzer 0 % (0-5); Neutrophil # 7.84 X10^3/uL (2.7-7.7); Platelet Count 204 K/mm3 (150-450); RBC Distribution Width CV 17.4 % (11.6-14.6); RBC Distribution Width SD 56.8 fl (35.1-43.9); Red Blood Count 3.01 M/mm3 (4.6-6.2); White Blood Count 10.2 K/mm3 (4.4-11.0)
[2019-11-19 06:50] LABS: Bedside Glucose 155 mg/dL (70-110)
[2019-11-19] MEDS: Ipratropium/Albuterol Sulfate 3 ML AMPUL.NEB INHALATION ×3 (06:57→18:31)
[2019-11-19 07:04] LABS: ALB/GLOB Ratio 0.8 RATIO (0.9-2.4); AST(SGOT) 9 U/L (15-37); Alanine Aminotransfer ALT/SGPT 17 U/L (16-61); Albumin, Serum 3.3 g/dL (3.2-5.0); Alkaline Phosphatase 84 U/L (45-117); Anion Gap 7 (5-15); BUN 104 mg/dL (7-18); BUN/Creat Ratio 31.5 RATIO (10-20); Calcium,Total 8.6 mg/dL (8.5-10.1); Chloride 116 mmol/L (98-107); EST Glomerular Filtration Rate 20 mL/min (>60); Est Glom Filt Rate - Afr Amer 24 mL/min (>60); Estimated Creatinine Clearance 21.42 ml/min; Globulin 3.9 g/dL (2.2-4.2); Glucose 165 mg/dL (74-106); Potassium 4.8 mmol/L (3.5-5.1); Protein, Total 7.2 g/dL (6.4-8.2); Sodium Level 144 mmol/L (136-145)
[2019-11-19] MEDS: Aspirin E.C. 81 MG Tablet PO (07:44)
[2019-11-19] MEDS: Ferrous Sulfate 325 MG Tablet PO ×2 (07:44→17:27)
[2019-11-19] MEDS: Allopurinol 100 MG Tablet PO (07:44)
--- NOTE | 2019-11-19 08:48 | PCM.PN.HOSP ---
Reason for Visit: Follow-up on hypoxia/acute CHF/anemia Subjective: Patient was seen and examined. Denied any new complaint. Still remains short of breath on 3 to 4 L of oxygen with exertional dyspnea. Still has melena stools. Urine output is oliguric. EKG shows normal sinus rhythm. Objective: Physical exam: General: Alert, Oriented x3, Cooperative, No apparent distress HEENT: Atraumatic, PERRLA, EOMI, Normocephalic Oral: Moist Mucosa Neck: Supple Lungs: Diminished, - - on 4L oxygen Cardiovascular: Regular rate, Regular Rhythm, Normal S1, Normal S2, No murmurs Abdomen: Bowel Sounds Present, Soft, Non Tender, Non-Distended, No Hepato-splenomegaly Extremities: Edema - Bilateral pedal edema +1 Skin: No rashes Musculoskeletal: No Tenderness to Palpation of Joints or Extremities Lymphatic: No Cervical, Supraclavicular, or Inguinal Adenopathy Neurological: Cranial nerves II-XII grossly intact, Neuro grossly intact Psych/Mental Status: Normal Affect, Appropriate Vitals/I&O's: Vital Signs Temp Pulse Resp BP Pulse Ox 97.8 F 70 18 132/71 H 90 11/19/19 04:00 11/19/19 07:00 11/19/19 06:57 11/19/19 04:00 11/19/19 06:57 Oxygen Flow Rate (L/min) 4 Oxygen Delivery Method Nasal Cannula Weight: 113.1 kg Body Mass Index (BMI) 37.2 Finger Stick Blood Glucose 269 Intake and Output for Last 24 Hours 11/17/19 11/18/19 11/19/19 23:59 23:59 23:59 Intake Total 710 / 710 1580 / 1580 220 / 220 Output Total 1125 / 1125 2550 / 2550 1100 / 1100 Balance -415 / -415 -970 / -970 -880 / -880 Microbiology Past 72 Hours 11/18/19 04:20 Stool Stool Occult Blood (JOSE RAMON) - Final Occult Blood Positive Laboratory Results 11/18/19 08:00: Blood Type B POSITIVE, Antibody Screen NEGATIVE, Crossmatch See Detail 11/18/19 11:29: POC Glucose 240 H 11/18/19 16:50: POC Glucose 254 H 11/18/19 17:30: Hgb 8.9 L, Hct 29.4 L 11/18/19 21:48: POC Glucose 164 H 11/18/19 22:25: Hgb 8.1 L, Hct 26.9 L 11/19/19 05:55: WBC 10.2, RBC 3.01 L, Hgb 8.4 L, Hct 27.6 L, MCV 91.7, MCH 27.9, MCHC 30.4 L, RDW Std Deviation 56.8 H, RDW Coeff of Judi 17.4 H, Plt Count 204, MPV 9.9, Immature Gran % (Auto) 2.400 H, Neut % (Auto) 77.0 H, Lymph % (Auto) 8.0 L, [place] % (Auto) 8.7, Eos % (Auto) 3.6, Baso % (Auto) 0.3, Absolute Neuts (auto) 7.8 H, Absolute Lymphs (auto) 0.81 L, Nucleated RBC % 0 11/19/19 05:55: Sodium 144, Potassium 4.8, Chloride 116 H, Carbon Dioxide 21.0, Anion Gap 7, BUN 104 H*, Creatinine 3.30 H, Estim Creat Clear Calc 21.42, Est GFR (MDRD) Af Amer 24 L, Est GFR (MDRD) Non-Af 20 L, BUN/Creatinine Ratio 31.5 H, Glucose 165 H, Calcium 8.6, Total Bilirubin 1.00, AST 9 L, ALT 17, Alkaline Phosphatase 84, Total Protein 7.2, Albumin 3.3, Globulin 3.9, Albumin/Globulin Ratio 0.8 L 11/19/19 06:44: POC Glucose 155 H Current Medications Acetaminophen (Tylenol) 650 mg PO Q6H PRN PRN PRN Reason: Pain Score 1-10/Temp > 100.7 F Albuterol/Ipratropium (Duoneb) 3 ml INHALATION Q4HWA.RT [facility] Last Admin: 11/19/19 06:57 Dose: 3 ml Documented by: [facility] Admin: 11/19/19 07:44 Dose: 100 mg Documented by: Amlodipine Besylate (Norvasc) 5 mg PO BID [facility] Last Admin: 11/18/19 21:50 Dose: 5 mg Documented by: Aspirin (Ecotrin) 81 mg PO DAILY@0800 [facility] Last Admin: 11/19/19 07:44 Dose: 81 mg Documented by: Dextrose (D50w Syringe) 0 gm IV X1 PRN; Protocol PRN Reason: Hypoglycemia Ferrous Sulfate (Ferrous Sulfate) 325 mg PO BIDCM [facility] Last Admin: 11/19/19 07:44 Dose: 325 mg Documented by: Fluoxetine HCl (Prozac) 40 mg PO DAILY [facility] Last Admin: 11/18/19 11:16 Dose: 40 mg Documented by: Furosemide (Lasix) 60 mg IV BID@1000,1800 [facility] Last Admin: 11/18/19 16:52 Dose: 60 mg Documented by: Glucagon () 1 mg IM .X1 PRN PRN Reason: Hypoglycemia Sodium Chloride () 250 mls @ 15 mls/hr IV .[id number] PRN PRN Reason: Saline Flush Sodium Chloride () 250 mls @ 15 mls/hr IV .[id number] PRN PRN Reason: Additional IVPB Infusion Pantoprazole Sodium 40 mg/ (Sodium Chloride) 110 mls @ 330 mls/hr IV Q12 [facility] Last Infusion: 11/18/19 22:22 Dose: Infused Documented by: Insulin Human Lispro (Humalog Kwikpen (Bkc)) 0 unit SC ACHS [facility]; Protocol Last Admin: 11/19/19 06:51 Dose: Not Given Documented by: Isosorbide Mononitrate (Imdur) 30 mg PO DAILY [facility] Last Admin: 11/18/19 11:17 Dose: 30 mg Documented by: Metoprolol Tartrate (Lopressor (Beta Ayde)) 50 mg PO BID [facility] Last Admin: 11/18/19 21:50 Dose: 50 mg Documented by: Nitroglycerin (Nitrostat) 0.4 mg SUBLINGUAL Q5M PRN PRN Reason: CHEST Ondansetron HCl (Zofran) 4 mg IV Q8H PRN PRN PRN Reason: NAUSEA/VOMITING Sodium Chloride () 10 - 40 ml IV UD PRN PRN Reason: SALINE FLUSH Last Admin: 11/18/19 21:50 Dose: 10 ml Documented by: STROKE Vital Signs/Narrative: Vital Signs Pulse Resp Pulse Ox 11/19/19 07:00 70 11/19/19 06:57 75 18 90 Medical Necessity - Tobacco Use Smoking Status: Former smoker Tobacco Use: Non-smoker Assessment/Plan All Active Problems (Last Reviewed 11/11/19 @ 08:[address] Seth Michael MD) Upper GI bleed (Acute) Anemia (Acute) Dyspnea on exertion (Acute) 69 year old M with multiple comorbidities significant for chronic diastolic CHF/CAD status post CABG and stents/stage IV CKD who was recently admitted on 11/10/19 and discharged on 11/11/19 comes in with worsening shortness of breath. 1. Acute hypoxic respiratory failure, multifactorial Likely secondary to acute on chronic diastolic CHF versus progressive aortic stenosis vs fluid overload from EDGARDO on CKD vs probable PE, in the setting of acute on chronic anemia Remains the same on 3-4 L of oxygen, continue to wean off for SPO2 more than 94% 2. Acute on chronic diastolic CHF, likely worsened in the setting of progressive aortic stenosis and anemia, remains about the same Cardiology and nephrology consulted. Continue on Lasix 60mg IV BID WILMER-wraps to legs 3. EDGARDO on CKD stage IV, slightly worse, Cr is 3.30 today Admitting creatinine of 3.16, previous creatinine 2.68 Nephrology consulted, will follow blood work in a.m. 4. Elevated d-dimer, unable to do CTA of the chest on account of EDGARDO to rule out PE Will DC therapeutic Lovenox on account of drop in Hb and possible worsening GI bleed Pulmonology consulted - discussed. 5. Probable acute on chronic GI bleed, recent admission on 11/09-11/10 on IV PPI. Pt is also on po iron. Discussed with Dr. Michael, will get a bleeding scan, repeat COVID 19 testing as a send out 6. Acute on chronic iron deficiency anemia secondary to #4, Hb is stable at 8.4 s/p 1 unit pRBC Continue on oral iron 7. 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 DASHA on BiPAP 9. CAD status post CABG, status post stents/hypertension, remains stable Continue on amlodipine, aspirin, isosorbide, metoprolol 10. DVT PPx- SCDs Inpatient E&M: 21235 Subs Hosp L2
[2019-11-19] MEDS: Metoprolol Tartrate 50 MG Tablet PO ×2 (09:10→21:37)
[2019-11-19] MEDS: FLUoxetine 20 MG Capsule 40 MG PO (09:10)
[2019-11-19] MEDS: amLODIPine 5 MG Tablet PO ×2 (09:10→21:37)
[2019-11-19] MEDS: Furosemide 100 MG/10 ML Vial 60 MG IV ×2 (09:11→17:27)
[2019-11-19] MEDS: Isosorbide Mononitrate 30 MG Tablet PO (09:11)
--- NOTE | 2019-11-19 10:22 | PN_ITS ---
Subjective: Patient did well overnight. Patient feeling subjectively improved compared to previous. Patient still having some cough and dyspnea on exertion. Patient is not reporting any chest pain. Objective: Telemetry shows continued A. fib, but rate controlled - Physical Exam Vitals/I&O's: Vital Signs Temp Pulse Resp BP Pulse Ox 37.2 C 105 H 18 147/81 H 96 11/19/19 09:05 11/19/19 09:10 11/19/19 09:05 11/19/19 09:05 11/19/19 09:05 Oxygen Flow Rate (L/min) 4 Oxygen Delivery Method Nasal Cannula Weight: 113.1 kg Body Mass Index (BMI) 37.2 Finger Stick Blood Glucose 269 Intake and Output for Last 24 Hours 11/17/19 11/18/19 11/19/19 23:59 23:59 23:59 Intake Total 710 / 710 1580 / 1580 330 / 330 Output Total 1125 / 1125 2550 / 2550 1100 / 1100 Balance -415 / -415 -970 / -970 -770 / -770 General: Alert, Oriented x3, Cooperative, No apparent distress, Well developed, Well nourished, - - Speaking in full sentences HEENT: Atraumatic, PERRLA, EOMI, Normocephalic, - - Supplemental oxygen in place Oral: Moist Mucosa, No Gingival or Mucosal Lesions/ Ulcerations Neck: Supple, No JVD, No Nodes, Trachea Midline Lungs: No rhonchi, No wheeze, No rales, Diminished Cardiovascular: Normal S1, Normal S2, No murmurs, Irregular Rate, No rub noted, No Gallop Abdomen: Bowel Sounds Present, Soft, Non Tender, Non-Distended, Obese Extremities: No clubbing, No cyanosis, No edema Skin: No rashes, No breakdown Musculoskeletal: No Tenderness to Palpation of Joints or Extremities Lymphatic: No Cervical, Supraclavicular, or Inguinal Adenopathy Neurological: Cranial nerves II-XII grossly intact, Neuro grossly intact, Motor Exam 5/5 strength throughout Psych/Mental Status: Alert and oriented to time, place, person, mood and affect Microbiology Past 72 Hours 11/18/19 04:20 Stool Stool Occult Blood (JOSE RAMON) - Final Occult Blood Positive Laboratory Results 11/18/19 08:00: Blood Type B POSITIVE, Antibody Screen NEGATIVE, Crossmatch See Detail 11/18/19 11:29: POC Glucose 240 H 11/18/19 16:50: POC Glucose 254 H 11/18/19 17:30: Hgb 8.9 L, Hct 29.4 L 11/18/19 21:48: POC Glucose 164 H 11/18/19 22:25: Hgb 8.1 L, Hct 26.9 L 11/19/19 05:55: WBC 10.2, RBC 3.01 L, Hgb 8.4 L, Hct 27.6 L, MCV 91.7, MCH 27.9, MCHC 30.4 L, RDW Std Deviation 56.8 H, RDW Coeff of Judi 17.4 H, Plt Count 204, MPV 9.9, Immature Gran % (Auto) 2.400 H, Neut % (Auto) 77.0 H, Lymph % (Auto) 8.0 L, [place] % (Auto) 8.7, Eos % (Auto) 3.6, Baso % (Auto) 0.3, Absolute Neuts (auto) 7.8 H, Absolute Lymphs (auto) 0.81 L, Nucleated RBC % 0 11/19/19 05:55: Sodium 144, Potassium 4.8, Chloride 116 H, Carbon Dioxide 21.0, Anion Gap 7, BUN 104 H*, Creatinine 3.30 H, Estim Creat Clear Calc 21.42, Est GFR (MDRD) Af Amer 24 L, Est GFR (MDRD) Non-Af 20 L, BUN/Creatinine Ratio 31.5 H , Glucose 165 H, Calcium 8.6, Total Bilirubin 1.00, AST 9 L, ALT 17, Alkaline Ph osphatase 84, Total Protein 7.2, Albumin 3.3, Globulin 3.9, Albumin/Globulin Ratio 0.8 L 11/19/19 06:44: POC Glucose 155 H Current Medications Acetaminophen (Tylenol) 650 mg PO Q6H PRN PRN PRN Reason: Pain Score 1-10/Temp > 100.7 F Albuterol/Ipratropium (Duoneb) 3 ml INHALATION Q4HWA.RT [facility] Last Admin: 11/19/19 06:57 Dose: 3 ml Documented by: Allopurinol (Zyloprim) 100 mg PO DAILYCM [facility] Last Admin: 11/19/19 07:44 Dose: 100 mg Documented by: Amlodipine Besylate (Norvasc) 5 mg PO BID [facility] Last Admin: 11/19/19 09:10 Dose: 5 mg Documented by: Aspirin (Ecotrin) 81 mg PO DAILY@0800 [facility] Last Admin: 11/19/19 07:44 Dose: 81 mg Documented by: Dextrose (D50w Syringe) 0 gm IV X1 PRN; Protocol PRN Reason: Hypoglycemia Ferrous Sulfate (Ferrous Sulfate) 325 mg PO BIDCM [facility] Last Admin: 11/19/19 07:44 Dose: 325 mg Documented by: Fluoxetine HCl (Prozac) 40 mg PO DAILY [facility] Last Admin: 11/19/19 09:10 Dose: 40 mg Documented by: Furosemide (Lasix) 60 mg IV BID@1000,1800 [facility] Last Admin: 11/19/19 09:11 Dose: 60 mg Documented by: Glucagon () 1 mg IM .X1 PRN PRN Reason: Hypoglycemia Sodium Chloride () 250 mls @ 15 mls/hr IV .[id number] PRN PRN Reason: Saline Flush Sodium Chloride () 250 mls @ 15 mls/hr IV .[id number] PRN PRN Reason: Additional IVPB Infusion Pantoprazole Sodium 40 mg/ (Sodium Chloride) 110 mls @ 330 mls/hr IV Q12 [facility] Last Infusion: 11/19/19 10:20 Dose: Infused Documented by: Insulin Human Lispro (Humalog Kwikpen (Bkc)) 0 unit SC ACHS [facility]; Protocol Last Admin: 11/19/19 06:51 Dose: Not Given Documented by: Isosorbide Mononitrate (Imdur) 30 mg PO DAILY [facility] Last Admin: 11/19/19 09:11 Dose: 30 mg Documented by: Metoprolol Tartrate (Lopressor (Beta Ayde)) 50 mg PO BID [facility] Last Admin: 11/19/19 09:10 Dose: 50 mg Documented by: Nitroglycerin (Nitrostat) 0.4 mg SUBLINGUAL Q5M PRN PRN Reason: CHEST Ondansetron HCl (Zofran) 4 mg IV Q8H PRN PRN PRN Reason: NAUSEA/VOMITING Sodium Chloride () 10 - 40 ml IV UD PRN PRN Reason: SALINE FLUSH Last Admin: 11/18/19 21:50 Dose: 10 ml Documented by: Medical Necessity - Tobacco Use Smoking Status: Former smoker Tobacco Use: Non-smoker Assessment/Plan All Active Problems (Last Reviewed 11/11/19 @ 08:[address] Seth Michael MD) Upper GI bleed (Acute) Anemia (Acute) Dyspnea on exertion (Acute) RECOMMENDATIONS: 1. Wean supplemental oxygen to maintain saturations at or above 90%. 2. Encourage incentive spirometer use and mobilize patient as tolerated. 3. Continue diuretic therapy as tolerated by hemodynamics and renal function. 4. May need evaluation of aortic valve as an outpatient 5. Continue BiPAP therapy on a nightly basis per outpatient regimen. 6. Monitor H&H closely, with plans to transfuse if hemoglobin drops below 7 g/dL. 7. Patient doing okay from a pulmonary standpoint. Will sign off from a pulmonary perspective. Please call with further issues. IMPRESSIONS: 1. Acute hypoxemic respiratory insufficiency Likely secondary to acute decompensated heart failure with preserved ejection fraction secondary to A. fib with RVR. In addition, the patient's underlying anemia is likely contributing to his shortness of breath as well. Hemoglobin has remained stable. Recommend continuing diuretic therapy as tolerated by hemodynamics and renal function. Wean supplemental oxygen to maintain saturations at or above 90%. Encourage incentive spirometer use and mobilize patient as tolerated. 2. History of obstructive sleep apnea Continue BiPAP therapy per outpatient regimen with naps and nightly. 3. Acute on chronic kidney disease Patient does have relatively advanced chronic kidney disease. Nephrology is following. Would continue with diuresis as tolerated and wean oxygen. 4. History of iron deficiency anemia The patient was recently admitted to the hospital and was instructed to continue acid suppression and follow-up with general surgery on an outpatient basis for potential EGD. Recommend monitoring H&H closely, with plans to transfuse if hemoglobin drops below 7 g/dL. 5. History of coronary artery disease status post CABG/obesity/history of tobacco dependency in remission/diabetes mellitus/hypertension/hyperlipidemia Complicates care, management, recovery and prognosis. Continue home medications as indicated. Inpatient E&M: 14676 Subs Hosp L2
--- NOTE | 2019-11-19 10:55 | EKG12_ITS ---
Test Reason : Blood Pressure : / mmHG Vent. Rate : 069 BPM Atrial Rate : 069 BPM P-R Int : 166 ms QRS Dur : 098 ms QT Int : 424 ms P-R-T Axes : 024 062 087 degrees QTc Int : 454 ms Normal sinus rhythm Nonspecific T wave abnormality Abnormal ECG Confirmed by JAE BACK, SADIE ([id number]), web content editor ROCÍO NORTON ([id number]) on 11/25/2019 1:11:33 PM Referred By: BRISA Confirmed By:SADIE ROWE MD
--- NOTE | 2019-11-19 10:56 | NM_ITS ---
We are attempting to reach an attending provider to discuss findings. An addendum with communication details will be sent when the communication is complete. CLINICAL: 69-year-old male with reported history of gastrointestinal hemorrhage. LABELED BLOOD POOL GASTROINTESTINAL BLEEDING STUDY COMPARISON: None available FINDINGS: Following the intravenous administration of 26.6 mCi of 99m Tc Ultratag labeled RBCs, image acquisitions of the anterior-abdomen and pelvis for a total of 60 minutes reveal: 1. Static sequential 1 minute projections of the anterior abdomen and pelvis and review of the cine projections demonstrate a focus of increased tracer concentration demonstrated in the midline mid abdominal mesentery with apparent lateral progression to the left mid abdomen with a changing spatial distribution and intensity of uptake for the remaining. Of image acquisition. 2. Physiologic tracer uptake is noted in the hepatic, splenic, major vascular blood pool. NM/GI Bleed Scan IMPRESSION: 1. ABNORMAL 99m Tc ULTRATAG LABELED BLOOD POOL GASTROINTESTINAL BLEEDING EXAMINATION. 2. Facilitated uptake defined in the right midline abdominal mesentery with apparent antegrade progression to the left mid abdomen is most consistent with an active gastrointestinal hemorrhage with potential origin in the mid transverse colon with progression to the descending colon. Electronically Signed: Yves Melo DO at 14:18 EDT Tel , Service support ,
--- NOTE | 2019-11-19 13:42 | PCM.PROGNOTE ---
Subjective: The patient still has some shortness of breath but better. He denies chest pain palpitations or any other complaints. - Physical Exam Vitals/I&O's: Vital Signs Temp Pulse Resp BP Pulse Ox 98.9 F 105 H 18 147/81 H 92 11/19/19 09:05 11/19/19 09:10 11/19/19 09:05 11/19/19 09:05 11/19/19 11:50 Oxygen Flow Rate (L/min) 3 Oxygen Delivery Method Nasal Cannula Weight: 113.1 kg Body Mass Index (BMI) 37.2 Finger Stick Blood Glucose 269 Intake and Output for Last 24 Hours 11/17/19 11/18/19 11/19/19 23:59 23:59 23:59 Intake Total 710 / 710 1580 / 1580 810 / 810 Output Total 1125 / 1125 2550 / 2550 1950 / 1950 Balance -415 / -415 -970 / -970 -1140 / -1140 General: Alert, Cooperative HEENT: Atraumatic, Normocephalic Oral: Moist Mucosa Neck: Supple, Trachea Midline Lungs: Clear to auscultation, Normal air movement Cardiovascular: Regular rate, Regular Rhythm Abdomen: Bowel Sounds Present, Soft, Obese Extremities: Edema - Bilateral lower extremity edema pretibial Microbiology Past 72 Hours 11/18/19 04:20 Stool Stool Occult Blood (JOSE RAMON) - Final Occult Blood Positive Laboratory Results 11/18/19 08:00: Crossmatch See Detail 11/18/19 16:50: POC Glucose 254 H 11/18/19 17:30: Hgb 8.9 L, Hct 29.4 L 11/18/19 21:48: POC Glucose 164 H 11/18/19 22:25: Hgb 8.1 L, Hct 26.9 L 11/19/19 05:55: WBC 10.2, RBC 3.01 L, Hgb 8.4 L, Hct 27.6 L, MCV 91.7, MCH 27.9, MCHC 30.4 L, RDW Std Deviation 56.8 H, RDW Coeff of Judi 17.4 H, Plt Count 204, MPV 9.9, Immature Gran % (Auto) 2.400 H, Neut % (Auto) 77.0 H, Lymph % (Auto) 8.0 L, [place] % (Auto) 8.7, Eos % (Auto) 3.6, Baso % (Auto) 0.3, Absolute Neuts (auto) 7.8 H, Absolute Lymphs (auto) 0.81 L, Nucleated RBC % 0 11/19/19 05:55: Sodium 144, Potassium 4.8, Chloride 116 H, Carbon Dioxide 21.0, Anion Gap 7, BUN 104 H*, Creatinine 3.30 H, Estim Creat Clear Calc 21.42, Est GFR (MDRD) Af Amer 24 L, Est GFR (MDRD) Non-Af 20 L, BUN/Creatinine Ratio 31.5 H, Glucose 165 H, Calcium 8.6, Total Bilirubin 1.00, AST 9 L, ALT 17, Alkaline Phosphatase 84, Total Protein 7.2, Albumin 3.3, Globulin 3.9, Albumin/Globulin Ratio 0.8 L 11/19/19 06:44: POC Glucose 155 H Current Medications Acetaminophen (Tylenol) 650 mg PO Q6H PRN PRN PRN Reason: Pain Score 1-10/Temp > 100.7 F Albuterol/Ipratropium (Duoneb) 3 ml INHALATION Q4HWA.RT [facility] Last Admin: 11/19/19 11:29 Dose: Not Given Documented by: [facility] Admin: 11/19/19 07:44 Dose: 100 mg Documented by: Amlodipine Besylate (Norvasc) 5 mg PO BID [facility] Last Admin: 11/19/19 09:10 Dose: 5 mg Documented by: Aspirin (Ecotrin) 81 mg PO DAILY@0800 [facility] Last Admin: 11/19/19 07:44 Dose: 81 mg Documented by: Dextrose (D50w Syringe) 0 gm IV X1 PRN; Protocol PRN Reason: Hypoglycemia Ferrous Sulfate ([facility] S[facility]) [facility] Last Admin: 11/19/19 07:44 Dose: 325 mg Documented by: Fluoxetine HCl (Prozac) 40 mg PO DAILY [facility] Last Admin: 11/19/19 09:10 Dose: 40 mg Documented by: Furosemide (Lasix) 60 mg IV BID@1000,1800 [facility] Last Admin: 11/19/19 09:11 Dose: 60 mg Documented by: Glucagon () 1 mg IM .X1 PRN PRN Reason: Hypoglycemia Sodium Chloride () 250 mls @ 15 mls/hr IV .[id number] PRN PRN Reason: Saline Flush Sodium Chloride () 250 mls @ 15 mls/hr IV .[id number] PRN PRN Reason: Additional IVPB Infusion Pantoprazole Sodium 40 mg/ (Sodium Chloride) 110 mls @ 330 mls/hr IV Q12 [facility] Last Infusion: 11/19/19 10:20 Dose: Infused Documented by: Insulin Human Lispro (Humalog Kwikpen (Bkc)) 0 unit SC ACHS [facility]; Protocol Last Admin: 11/19/19 06:51 Dose: Not Given Documented by: Isosorbide Mononitrate (Imdur) 30 mg PO DAILY [facility] Last Admin: 11/19/19 09:11 Dose: 30 mg Documented by: Metoprolol Tartrate (Lopressor (Beta Ayde)) 50 mg PO BID [facility] Last Admin: 11/19/19 09:10 Dose: 50 mg Documented by: Nitroglycerin (Nitrostat) 0.4 mg SUBLINGUAL Q5M PRN PRN Reason: CHEST Ondansetron HCl (Zofran) 4 mg IV Q8H PRN PRN PRN Reason: NAUSEA/VOMITING Sodium Chloride () 10 - 40 ml IV UD PRN PRN Reason: SALINE FLUSH Last Admin: 11/18/19 21:50 Dose: 10 ml Documented by: Medical Necessity - Tobacco Use Smoking Status: Former smoker Tobacco Use: Non-smoker Assessment/Plan All Active Problems (Last Reviewed 11/11/19 @ 08:[address] Seth Michael MD) Upper GI bleed (Acute) Anemia (Acute) Dyspnea on exertion (Acute) EDGARDO likely prerenal possible CRS rule out obstruction Daily for baseline serum creatinine 2.4-2.6 Lower extremity edema Hypertension CHF Scr 3.3 slightly better Patient still has dyspnea though better will continue same dose of diuretics Renal ultrasound ordered BP acceptable for now No WILMER ARB for now Avoid nephrotoxins over diuresis.
--- NOTE | 2019-11-19 14:05 | US_ITS ---
STUDY: RENAL ULTRASOUND - COMPLETE REASON FOR EXAM: Male, 69 years old. Acute kidney injury. TECHNIQUE: Ultrasound evaluation of the kidneys was performed with real-time and static buchanan-scale imaging. COMPARISON: None. FINDINGS: RIGHT KIDNEY: Normal location of the right kidney, which is enlarged in size. The right kidney measures 13.5 cm. Increased renal cortical echogenicity. The renal cortex measures 1.3 cm. There is a 1.3 cm simple cyst extending exophytically from the upper pole cortex. There are no right renal calculi. There is no right hydronephrosis. DISTAL RIGHT URETER: There is non-visualization of the distal right ureter. There is no demonstrated right ureterovesical junction calculus. There is a visualized right ureteral jet. LEFT KIDNEY: Normal location of left kidney, which is in the lower in size. The left kidney measures 13.9 cm. Increased renal cortical echogenicity. The renal cortex measures 1.3) cm. There is a 4.7 x 4.6 x 4.3 cm cyst in the upper pole with internal septation. There is a small exophytic simple cyst off the lower pole measuring 1 cm in diameter. There are no left renal calculi. There is no left hydronephrosis. DISTAL LEFT URETER: There is non-visualization of the distal left ureter. There is no demonstrated left ureterovesical junction calculus. There is a visualized left ureteral jet. BLADDER: The poorly distended urinary bladder has a volume of 18.3 ml. There is a normal wall thickness of the distended urinary bladder. There is no demonstrated mass within the urinary bladder. There are no demonstrated bladder calculi. US/Kidney and Bladder IMPRESSION: 1. Bilateral enlarged kidneys. There is mild increase in renal parenchymal echogenicity suggesting medical renal disease. 2. Bilateral renal cysts. There is a septation in the larger cyst in the left kidney. This suggests a Bochdalek 2 classification. 3. Poorly distended but otherwise unremarkable urinary bladder. Electronically Signed: Luis E Fishman DO at 20:10 EDT Tel [phone], Service support ,
[2019-11-19] MEDS: Insulin Lispro 100 UNIT/ML INSULN.PEN SC ×3 (14:28→21:36)
[2019-11-19 14:51] LABS: Bedside Glucose 212 mg/dL (70-110)
[2019-11-19 15:16] LABS: Hematocrit 29.1 % (40-54); Hemoglobin 8.8 g/dL (13.0-16.5)
[2019-11-19] MEDS: Electrolyte Solution/Peg's 4000 ML PO (17:26)
[2019-11-19 17:55] LABS: Bedside Glucose 210 mg/dL (70-110)
[2019-11-19 20:55] LABS: Hematocrit 29.5 % (40-54); Hemoglobin 8.7 g/dL (13.0-16.5)
[2019-11-19] MEDS: 0.9% Saline Lock 10 ML Syringe IV ×2 (21:45→22:23)
[2019-11-19 22:16] LABS: Bedside Glucose 167 mg/dL (70-110)
[2019-11-20] VITALS (20 sets, daily range): BP systolic 100–142; BP diastolic 48–80; PULSE 65–86; RESP 16–20; TEMP 36.3–37.3; O2SAT 92–98; BMI 36.8
--- NOTE | 2019-11-20 | COLBX_PTH ---
PATIENT: KYLE WOMACK LOC: [facility] U#:[id number] AGE/SX: 69/M ROOM: [facility] RE11/17/[address]: Dr. Suellen Magallanes MD : 1950 BED: 1 DIS: 11/25/2019 SPEC #: [id number] RECD: 11/20/19 13:45 STATUS: GIULIANO REQ #: [id number] ARISTIDES: 11/20/19 00:[address]: Seth Michael DEPT: SURGICAL PATHOLOGY RECD BY: Riley Esquivel ENTERED: 11/20/19 13:45 SP TYPE: COLON BX OTHR DR: MD Dr. Shlomo Mckenzie DO Dr. Daniel Peabody, MD Dr. Jayaprakas Dasari, MD Dr. Nagapradee Nagajothi, MD Dr. Paul Moodispaw, MD Dr. Victor Velasquez, MD Tissues: A - Ascending colon B - Transverse colon Procedures: Surgery Specimen Level IV Comments: @ Ordering doctor for SUIV edited from to @ by BHUPINDER at 11/20/19 1408 @ Submitting doctor edited from to @ by BHUPINDER at 11/20/19 1408 HEADER OPERATION: Colonoscopy (MAC) PRE-OP DIAGNOSIS: Positive bleeding scan TISSUE SUBMITTED: A - Ascending colon polyp, B - Transverse colon polyp MICROSCOPIC DIAGNOSIS A. Ascending colon polyp, biopsy: Fragments of tubular adenoma. B. Transverse colon polyp, biopsy: Fragments of tubular adenoma. BLAS:stefanie 11/23/19 MICROSCOPIC DESCRIPTION Slides are reviewed. GROSS DESCRIPTION A - Received in fixative is one container labeled with the patient's name and designated ascending colon polyp. The specimen consists of two pieces of wright-pink polyp that in aggregate measure 1.5 x 0.5 x 0.4 cm. The entire specimen is submitted in one cassette. B - Received in fixative is one container labeled with the patient's name and designated transverse colon polyp. The specimen consists of multiple irregular fragments of light wright soft tissue that in aggregate measure 0.3 x 0.3 x 0.1 cm. The specimen is totally submitted in one cassette. / BLAS:stefanie 11/20/19 TC:1 CPT: 96261 x2
[2019-11-20 03:18] LABS: Absolute Lymphocyte Count 0.71 X10^3/uL (0.83-4.51); Absolute Neutrophil Count 6.8 X10^3/uL (2.0-7.7); Basophil# 0.02 X10^3/uL; Basophil% 0.2 % (0-1); Eosinophil# 0.46 X10^3/uL; Eosinophils% 5.2 % (0-5); Hematocrit 26.2 % (40-54); Lymphocyte # 0.71 X10^3/ul (4.0); Mean Corp Hgb Conc 30.5 g/dL (32-36); Mean Corpuscular Hgb 27.8 pg (27.0-32.0); Mean Platelet Vol. 9.5 fl (6.2-12.0); Monocyte# 0.68 X10^3/uL; Monocyte% 7.7 % (0-10); NRBC Flagged by Analyzer 0 % (0-5); Neutrophil # 6.84 X10^3/uL (2.7-7.7); Platelet Count 201 K/mm3 (150-450); RBC Distribution Width SD 55.5 fl (35.1-43.9); Red Blood Count 2.88 M/mm3 (4.6-6.2); White Blood Count 8.9 K/mm3 (4.4-11.0)
[2019-11-20 03:54] LABS: ALB/GLOB Ratio 0.8 RATIO (0.9-2.4); AST(SGOT) 9 U/L (15-37); Alanine Aminotransfer ALT/SGPT 18 U/L (16-61); Albumin, Serum 3.1 g/dL (3.2-5.0); Alkaline Phosphatase 84 U/L (45-117); Anion Gap 9 (5-15); BUN 99 mg/dL (7-18); BUN/Creat Ratio 34.6 RATIO (10-20); Calcium,Total 8.4 mg/dL (8.5-10.1); Chloride 114 mmol/L (98-107); Creatinine, Serum 2.86 mg/dL (0.70-1.30); EST Glomerular Filtration Rate 23 mL/min (>60); Est Glom Filt Rate - Afr Amer 28 mL/min (>60); Estimated Creatinine Clearance 24.72 ml/min; Glucose 176 mg/dL (74-106); Potassium 4.7 mmol/L (3.5-5.1); Protein, Total 7.1 g/dL (6.4-8.2); Sodium Level 143 mmol/L (136-145)
[2019-11-20 06:41] LABS: International Normalized Ratio 1.3; Prothrombin Time (Protime)PT. 15.8 SECONDS (11.7-14.9)
[2019-11-20 06:42] LABS: Partial Thromboplast Time 32.4 Seconds (24.1-36.2)
[2019-11-20 06:50] LABS: Bedside Glucose 181 mg/dL (70-110)
[2019-11-20] MEDS: Ipratropium/Albuterol Sulfate 3 ML AMPUL.NEB INHALATION ×4 (07:24→20:43)
[2019-11-20] MEDS: Isosorbide Mononitrate 30 MG Tablet PO (08:41)
[2019-11-20] MEDS: Metoprolol Tartrate 50 MG Tablet PO ×2 (08:41→21:32)
[2019-11-20] MEDS: Furosemide 100 MG/10 ML Vial 60 MG IV ×2 (08:41→18:08)
[2019-11-20] MEDS: amLODIPine 5 MG Tablet PO ×2 (08:41→21:32)
--- NOTE | 2019-11-20 10:26 | CASEMGMT ---
Addendum entered by Jil Encarnacion 11/20/19 14:32: Pt/ updated on the tub/transfer bench and script still provided to pt at this time. Pt [facility] Jaylan STRICKLAND CM Addendum entered by Jil Encarnacion 11/20/19 12:08: Prior to script being faxed to [facility] [place], this RN CM spoke with Hiwot at [facility] [place] and she states that they no longer carry tub/transfer benches and she also states that [facility] or [facility] do not cover these at this time. Pt/ to be updated once back in room. Jaylan STRICKLAND CM Original Note: This RN CM to room to discuss discharge plan with pt at this time. Pt states no need for any further therapy at discharge but pt does state that RN GAURI from last week offered him a tub bench and pt states that he would like that at this time. This RN CM Pt states [employer] as preference. Pt/ state no further questions/concerns/needs at this time. Script for tub/transfer bench to be faxed to [facility] [place] with facesheet/copy of cards. Pt/ are aware that tub/transfer bench may not be covered by insurance, voice understanding. Jaylan STRICKLAND CM
[2019-11-20 11:00] LABS: Bedside Glucose 173 mg/dL (70-110)
--- NOTE | 2019-11-20 11:59 | OP.COLON_ITS ---
Patient Name: Mt Gardner Procedure Date: 11/20/2019 11:14 AM Date of : 1950 Age: 69 Procedure: Colonoscopy Indications: Evaluation on imaging study of clinically significant abnormality, Evaluation of unexplained GI bleeding, Melena, Gastrointestinal bleeding Providers: Seth Michael MD Medicines: See the Anesthesia note for documentation of the administered medications Patient Profile: This is a 69 year old male. Refer to note in patient chart for documentation of history and physical. Last Colonoscopy: 2002. Complications: No immediate complications. Procedure: Pre-Anesthesia Assessment: - Prior to the procedure, a History and Physical was performed, and patient medications and allergies were reviewed. The patient's tolerance of previous anesthesia was also reviewed. The risks and benefits of the procedure and the sedation options and risks were discussed with the patient. All questions were answered, and informed consent was obtained. Prior Anticoagulants: The patient has taken no previous anticoagulant or antiplatelet agents. ASA Grade Assessment: IV - A patient with severe systemic disease that is a constant threat to life. After reviewing the risks and benefits, the patient was deemed in satisfactory condition to undergo the procedure. After I obtained informed consent, the scope was passed under direct vision. Throughout the procedure, the patient's blood pressure, pulse, and oxygen saturations were monitored continuously. The adult colonoscope was introduced through the anus and advanced to the cecum, identified by appendiceal orifice and ileocecal valve. The colonoscopy was performed without difficulty. The patient tolerated the procedure well. The quality of the bowel preparation was good. Scope In: 11:35:44 AM Scope Withdrawal Time 0 hours 7 minutes 46 seconds Scope Out: 11:46:56 AM Total Procedure Duration Time 0 hours 11 minutes 12 seconds Findings: Two sessile polyps were found in the transverse colon and ascending colon. The polyps were 6 to 7 mm in size. These polyps were removed with a hot snare. Resection and retrieval were complete. Multiple small-mouthed diverticula were found in the descending colon and transverse colon. No biopsies or other specimens were collected for this exam. There certainly was nothing obvious from the bleeding scan studies in the transverse colon or going down into the descending colon. He did have a few diverticuli that were seen. But nothing that was actively bleeding. Non-bleeding internal hemorrhoids were found during retroflexion. The hemorrhoids were mild and small. No biopsies or other specimens were collected for this exam. The exam was otherwise without abnormality. Impression: - Two 6 to 7 mm polyps in the transverse colon and in the ascending colon, removed with a hot snare. Resected and retrieved. - Diverticulosis in the descending colon and in the transverse colon. No specimens collected. - Non-bleeding internal hemorrhoids. No specimens collected. - The examination was otherwise normal. Recommendation: - [facility]. - Resume previous diet. - Continue present medications. - Repeat colonoscopy in 5 years for surveillance. - Return to my office in 1 week. Procedure Code(s): --- Professional --- 17356, Colonoscopy, flexible; with removal of tumor(s), polyp(s), or other lesion(s) by snare technique Diagnosis Code(s): --- Professional --- D12.3, Benign neoplasm of transverse colon (hepatic flexure or splenic flexure) D12.2, Benign neoplasm of ascending colon K64.8, Other hemorrhoids K92.2, Gastrointestinal hemorrhage, unspecified K92.1, Melena (includes Hematochezia) K57.30, Diverticulosis of large intestine without perforation or abscess without bleeding R93.3, Abnormal findings on diagnostic imaging of other parts of digestive tract CPT copyright 2017 [employer]. All rights reserved. The codes documented in this report are preliminary and upon rehabilitation caseworker review may be revised to meet current compliance requirements. MD Seth Byrd MD 11/20/2019 11:58:55 AM This report has been signed electronically. Number of Addenda: 0 Note Initiated On: 11/20/2019 11:14 AM
--- NOTE | 2019-11-20 11:59 | OP.CCLET_ITS ---
11/20/2019 Davon Lemus [address] [place] [address] Re : Colonoscopy procedure for Mt Gardner Dear Dr. Lemus This procedure was performed on Wednesday, November 20, 2019. My impressions and recommendations are as follows: Impressions : - Two 6 to 7 mm polyps in the transverse colon and in the ascending colon, removed with a hot snare. Resected and retrieved. - Diverticulosis in the descending colon and in the transverse colon. No specimens collected. - Non-bleeding internal hemorrhoids. No specimens collected. - The examination was otherwise normal. Recommendations : - [facility]. - Resume previous diet. - Continue present medications. - Repeat colonoscopy in 5 years for surveillance. - Return to my office in 1 week. My findings are described in the full procedure note, which is enclosed. If I can be of further assistance, please feel free to contact me at Doctor phone number(s): , Fax: [phone], Work: . Sincerely, MD Seth Byrd MD 11/20/2019 11:58:55 AM This report has been signed electronically.
--- NOTE | 2019-11-20 11:59 | PCM.PN.HOSP ---
Reason for Visit: Follow-up on hypoxia/acute CHF/anemia Subjective: Patient was seen and examined. Denied any new complaints. He had a bowel prep overnight with greenish stools mixed with melena stools. Denied any chest pain or breathing problems. Respiratory status appears to have improved. He had a colonoscopy this morning that was unremarkable except for some polyps which were biopsied. Objective: Physical exam: General: Alert, Oriented x3, Cooperative, No apparent distress HEENT: Atraumatic, PERRLA, EOMI, Normocephalic Oral: Moist Mucosa Neck: Supple Lungs: Diminished, - - on 4L oxygen Cardiovascular: Regular rate, Regular Rhythm, Normal S1, Normal S2, No murmurs Abdomen: Bowel Sounds Present, Soft, Non Tender, Non-Distended, No Hepato-splenomegaly Extremities: Edema - Bilateral pedal edema +1 Skin: No rashes Musculoskeletal: No Tenderness to Palpation of Joints or Extremities Lymphatic: No Cervical, Supraclavicular, or Inguinal Adenopathy Neurological: Cranial nerves II-XII grossly intact, Neuro grossly intact Psych/Mental Status: Normal Affect, Appropriate Vitals/I&O's: Vital Signs Temp Pulse Resp BP Pulse Ox 98.7 F 74 16 117/61 98 11/20/19 11:55 11/20/19 11:55 11/20/19 11:55 11/20/19 11:55 11/20/19 11:55 Oxygen Flow Rate (L/min) 2 Oxygen Delivery Method Nasal Cannula Weight: 113.1 kg Body Mass Index (BMI) 36.8 Finger Stick Blood Glucose 269 Intake and Output for Last 24 Hours 11/18/19 11/19/19 11/20/19 23:59 23:59 23:59 Intake Total 1580 / 1580 2120 / 2120 1070 / 1070 Output Total 2550 / 2550 2850 / 2850 2 / 2 Balance -970 / -970 -730 / -730 1068 / 1068 Microbiology Past 72 Hours 11/18/19 04:20 Stool Stool Occult Blood (JOSE RAMON) - Final Occult Blood Positive Laboratory Results 11/19/19 14:23: POC Glucose 212 H 11/19/19 14:59: Hgb 8.8 L, Hct 29.1 L 11/19/19 17:22: POC Glucose 210 H 11/19/19 20:47: Hgb 8.7 L, Hct 29.5 L 11/19/19 21:34: POC Glucose 167 H 11/20/19 03:05: WBC 8.9, RBC 2.88 L, Hgb 8.0 L, Hct 26.2 L, MCV 91.0, MCH 27.8, MCHC 30.5 L, RDW Std Deviation 55.5 H, RDW Coeff of Judi 17.0 H, Plt Count 201, MPV 9.5, Immature Gran % (Auto) 1.900 H, Neut % (Auto) 77.0 H, Lymph % (Auto) 8.0 L, [place] % (Auto) 7.7, Eos % (Auto) 5.2 H, Baso % (Auto) 0.2, Absolute Neuts (auto) 6.8, Absolute Lymphs (auto) 0.71 L, Nucleated RBC % 0 11/20/19 03:05: Sodium 143, Potassium 4.7, Chloride 114 H, Carbon Dioxide 20.0 L, Anion Gap 9, BUN 99 H, Creatinine 2.86 H, Estim Creat Clear Calc 24.72, Est GFR (MDRD) Af Amer 28 L, Est GFR (MDRD) Non-Af 23 L, BUN/Creatinine Ratio 34.6 H, Glucose 176 H, Calcium 8.4 L, Total Bilirubin 0.80, AST 9 L, ALT 18, Alkaline Phosphatase 84, Total Protein 7.1, Albumin 3.1 L, Globulin 4.0, Albumin/Globulin Ratio 0.8 L 11/20/19 05:58: PT 15.8 H, INR 1.3, APTT 32.4 11/20/19 06:46: POC Glucose 181 H 11/20/19 10:54: POC Glucose 173 H Current Medications Acetaminophen (Tylenol) 650 mg PO Q6H PRN PRN PRN Reason: Pain Score 1-10/Temp > 100.7 F Albuterol/Ipratropium (Duoneb) 3 ml INHALATION Q4HWA.RT [facility] Last Admin: 11/20/19 10:58 Dose: 3 ml Documented by: Allop[facility] ([facility]) [facility] Last Admin: 11/19/19 07:44 Dose: 100 mg Documented by: Amlodipine Besylate (Norvasc) 5 mg PO BID [facility] Last Admin: 11/20/19 08:41 Dose: 5 mg Documented by: Aspirin (Ecotrin) 81 mg PO DAILY@0800 [facility] Last Admin: 11/19/19 07:44 Dose: 81 mg Documented by: Dextrose (D50w Syringe) 0 gm IV X1 PRN; Protocol PRN Reason: Hypoglycemia Ferrous Sulfate (Ferrous Sulfate) 325 mg PO BIDCM [facility] Last Admin: 11/20/19 10:56 Dose: Not Given Documented by: Fluoxetine HCl (Prozac) 40 mg PO DAILY [facility] Last Admin: 11/19/19 09:10 Dose: 40 mg Documented by: Furosemide (Lasix) 60 mg IV BID@1000,1800 [facility] Last Admin: 11/20/19 08:41 Dose: 60 mg Documented by: Glucagon () 1 mg IM .X1 PRN PRN Reason: Hypoglycemia Sodium Chloride () 250 mls @ 15 mls/hr IV .[id number] PRN PRN Reason: Saline Flush Sodium Chloride () 250 mls @ 15 mls/hr IV .[id number] PRN PRN Reason: Additional IVPB Infusion Pantoprazole Sodium 40 mg/ (Sodium Chloride) 110 mls @ 330 mls/hr IV Q12 [facility] Last Infusion: 11/20/19 09:09 Dose: Infused Documented by: Insulin Human Lispro (Humalog Kwikpen (Bkc)) 0 unit SC ACHS [facility]; Protocol Last Admin: 11/20/19 10:56 Dose: Not Given Documented by: Isosorbide Mononitrate (Imdur) 30 mg PO DAILY [facility] Last Admin: 11/20/19 08:41 Dose: 30 mg Documented by: Metoprolol Tartrate (Lopressor (Beta Ayde)) 50 mg PO BID [facility] Last Admin: 11/20/19 08:41 Dose: 50 mg Documented by: Nitroglycerin (Nitrostat) 0.4 mg SUBLINGUAL Q5M PRN PRN Reason: CHEST Ondansetron HCl (Zofran) 4 mg IV Q8H PRN PRN PRN Reason: NAUSEA/VOMITING Sodium Chloride () 10 - 40 ml IV UD PRN PRN Reason: SALINE FLUSH Last Admin: 11/19/19 22:23 Dose: 10 ml Documented by: STROKE Vital Signs/Narrative: Vital Signs Temp Pulse Resp BP Pulse Ox 11/20/19 11:55 98.7 F 74 16 117/61 98 11/20/19 11:06 94 11/20/19 10:58 71 16 11/20/19 08:41 85 11/20/19 08:34 97.4 F L 85 16 142/74 H 92 Medical Necessity - Tobacco Use Smoking Status: Former smoker Tobacco Use: Non-smoker Assessment/Plan All Active Problems (Last Reviewed 11/11/19 @ 08:[address] Seth Michael MD) Upper GI bleed (Acute) Anemia (Acute) Dyspnea on exertion (Acute) 69 year old M with multiple comorbidities significant for chronic diastolic CHF/CAD status post CABG and stents/stage IV CKD who was recently admitted on 11/10/19 and discharged on 11/11/19 comes in with worsening shortness of breath. 1. Acute hypoxic respiratory failure, multifactorial, improved Likely secondary to acute on chronic diastolic CHF versus progressive aortic stenosis vs fluid overload from EDGARDO on CKD vs probable PE, in the setting of acute on chronic anemia Currently on 2 L of oxygen, continue to wean off for SPO2 more than 94% 2. Acute on chronic diastolic CHF, likely worsened in the setting of progressive aortic stenosis and anemia, improving, Not much drop in his weight. Cardiology and nephrology consulted. Continue on Lasix 60mg IV BID, fluid restriction WILMER-wraps to legs 3. EDGARDO on CKD stage IV, improving Cr is 2.86 today Admitting creatinine of 3.16, previous creatinine 2.68 Nephrology consulted, will follow blood work in a.m. 4. Elevated d-dimer, unable to do CTA of the chest on account of EDGARDO to rule out PE, although less likely now Off therapeutic Lovenox on account of drop in Hb and possible worsening GI bleed Pulmonology consulted - discussed. 5. Acute on chronic GI bleed, recent admission on 11/09-11/10 for similar presentation Bleeding scan on 11/19/19 was positive for bleed in the mid transverse colon. Status post colonoscopy that was unremarkable except for polyps, hemorrhoids, diverticuli on IV PPI and iron General surgery following, possible EGD on Saturday 6. Acute on chronic iron deficiency anemia secondary to #4, Hb is stable at 8.0 s/p 1 unit pRBC Continue on oral iron 7. 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 DASHA on BiPAP 9. CAD status post CABG, status post stents/hypertension, remains stable Continue on amlodipine, aspirin, isosorbide, metoprolol 10. DVT PPx- SCDs Inpatient E&M: 26833 Subs Hosp L2
[2019-11-20] MEDS: FLUoxetine 20 MG Capsule 40 MG PO (13:12)
[2019-11-20] MEDS: Aspirin E.C. 81 MG Tablet PO (13:12)
[2019-11-20] MEDS: Allopurinol 100 MG Tablet PO (13:12)
--- NOTE | 2019-11-20 13:59 | PN.RENAL_ITS ---
Subjective: SOB BETTER but still present - Physical Exam Vitals/I&O's: Vital Signs Temp Pulse Resp BP Pulse Ox 98.4 F 71 16 122/59 H 94 11/20/19 12:38 11/20/19 12:38 11/20/19 12:38 11/20/19 12:38 11/20/19 12:38 Oxygen Flow Rate (L/min) 2 Oxygen Delivery Method Nasal Cannula Weight: 113.1 kg Body Mass Index (BMI) 36.8 Finger Stick Blood Glucose 269 Intake and Output for Last 24 Hours 11/18/19 11/19/19 11/20/19 23:59 23:59 23:59 Intake Total 1580 / 1580 2120 / 2120 1070 / 1070 Output Total 2550 / 2550 2850 / 2850 5 / 5 Balance -970 / -970 -730 / -730 1065 / 1065 General: Alert, Cooperative HEENT: Atraumatic, Normocephalic Oral: Moist Mucosa Neck: Supple, Trachea Midline Lungs: Clear to auscultation, Normal air movement Cardiovascular: Regular rate, Regular Rhythm, Normal S1, Normal S2 Abdomen: Bowel Sounds Present, Soft Extremities: Edema Microbiology Past 72 Hours 11/18/19 04:20 Stool Stool Occult Blood (JOSE RAMON) - Final Occult Blood Positive Laboratory Results 11/19/19 14:23: POC Glucose 212 H 11/19/19 14:59: Hgb 8.8 L, Hct 29.1 L 11/19/19 17:22: POC Glucose 210 H 11/19/19 20:47: Hgb 8.7 L, Hct 29.5 L 11/19/19 21:34: POC Glucose 167 H 11/20/19 03:05: WBC 8.9, RBC 2.88 L, Hgb 8.0 L, Hct 26.2 L, MCV 91.0, MCH 27.8, MCHC 30.5 L, RDW Std Deviation 55.5 H, RDW Coeff of Judi 17.0 H, Plt Count 201, MPV 9.5, Immature Gran % (Auto) 1.900 H, Neut % (Auto) 77.0 H, Lymph % (Auto) 8.0 L, [place] % (Auto) 7.7, Eos % (Auto) 5.2 H, Baso % (Auto) 0.2, Absolute Neuts (auto) 6.8, Absolute Lymphs (auto) 0.71 L, Nucleated RBC % 0 11/20/19 03:05: Sodium 143, Potassium 4.7, Chloride 114 H, Carbon Dioxide 20.0 L , Anion Gap 9, BUN 99 H, Creatinine 2.86 H, Estim Creat Clear Calc 24.72, Est GFR (MDRD) Af Amer 28 L, Est GFR (MDRD) Non-Af 23 L, BUN/Creatinine Ratio 34.6 H , Glucose 176 H, Calcium 8.4 L, Total Bilirubin 0.80, AST 9 L, ALT 18, Alkaline Phosphatase 84, Total Protein 7.1, Albumin 3.1 L, Globulin 4.0, Albumin/Globulin Ratio 0.8 L 11/20/19 05:58: PT 15.8 H, INR 1.3, APTT 32.4 11/20/19 06:46: POC Glucose 181 H 11/20/19 10:54: POC Glucose 173 H Current Medications Acetaminophen (Tylenol) 650 mg PO Q6H PRN PRN PRN Reason: Pain Score 1-10/Temp > 100.7 F Albuterol/Ipratropium (Duoneb) 3 ml INHALATION Q4HWA.RT [facility] Last Admin: 11/20/19 10:58 Dose: 3 ml Documented by: [facility] Admin: 11/20/19 13:12 Dose: 100 mg Documented by: Amlodipine Besylate (Norvasc) 5 mg PO BID [facility] Last Admin: 11/20/19 08:41 Dose: 5 mg Documented by: Aspirin (Ecotrin) 81 mg PO DAILY@0800 [facility] Last Admin: 11/20/19 13:12 Dose: 81 mg Documented by: Dextrose (D50w Syringe) 0 gm IV X1 PRN; Protocol PRN Reason: Hypoglycemia Ferrous Sulfate ([facility]ous Sulfate) [facility] Last Admin: 11/20/19 10:56 Dose: Not Given Documented by: Fluoxetine HCl (Prozac) 40 mg PO DAILY [facility] Last Admin: 11/20/19 13:12 Dose: 40 mg Documented by: Furosemide (Lasix) 60 mg IV BID@1000,1800 [facility] Last Admin: 11/20/19 08:41 Dose: 60 mg Documented by: Glucagon () 1 mg IM .X1 PRN PRN Reason: Hypoglycemia Sodium Chloride () 250 mls @ 15 mls/hr IV .[id number] PRN PRN Reason: Saline Flush Sodium Chloride () 250 mls @ 15 mls/hr IV .[id number] PRN PRN Reason: Additional IVPB Infusion Pantoprazole Sodium 40 mg/ (Sodium Chloride) 110 mls @ 330 mls/hr IV Q12 [facility] Last Infusion: 11/20/19 09:09 Dose: Infused Documented by: Insulin Human Lispro (Humalog Kwikpen (Bkc)) 0 unit SC ACHS [facility]; Protocol Last Admin: 11/20/19 10:56 Dose: Not Given Documented by: Isosorbide Mononitrate (Imdur) 30 mg PO DAILY [facility] Last Admin: 11/20/19 08:41 Dose: 30 mg Documented by: Metoprolol Tartrate (Lopressor (Beta Ayde)) 50 mg PO BID [facility] Last Admin: 11/20/19 08:41 Dose: 50 mg Documented by: Nitroglycerin (Nitrostat) 0.4 mg SUBLINGUAL Q5M PRN PRN Reason: CHEST Ondansetron HCl (Zofran) 4 mg IV Q8H PRN PRN PRN Reason: NAUSEA/VOMITING Sodium Chloride () 10 - 40 ml IV UD PRN PRN Reason: SALINE FLUSH Last Admin: 11/19/19 22:23 Dose: 10 ml Documented by: Medical Necessity - Tobacco Use Smoking Status: Former smoker Tobacco Use: Non-smoker Assessment/Plan All Active Problems (Last Reviewed 11/11/19 @ 08:[address] Seth Michael MD) Upper GI bleed (Acute) Anemia (Acute) Dyspnea on exertion (Acute) EDGARDO likely prerenal possible CRS rule out obstruction Daily for baseline serum creatinine 2.4-2.6 Complex renal cyst Lower extremity edema Hypertension CHF Scr 2.8 better will continue same dose of diuretics BP OK No WILMER ARB for now Get urology evaluation for complex renal cyst Avoid nephrotoxins over diuresis.
--- NOTE | 2019-11-20 14:19 | PCM.PN.CARD ---
Subjectve: Patient has improved significantly. Objective: Vital Signs Temp Pulse Resp BP Pulse Ox 98.4 F 71 16 122/59 H 94 11/20/19 12:38 11/20/19 12:38 11/20/19 12:38 11/20/19 12:38 11/20/19 12:38 Oxygen Flow Rate (L/min) 2 Oxygen Delivery Method Nasal Cannula Weight: 249 lb 5.485 oz Body Mass Index (BMI) 36.8 Finger Stick Blood Glucose 269 Intake and Output for Last 24 Hours 11/18/19 11/19/19 11/20/19 23:59 23:59 23:59 Intake Total 1580 / 1580 2120 / 2120 1070 / 1070 Output Total 2550 / 2550 2850 / 2850 Balance -970 / -970 -730 / -730 1065 / 1065 General: Awake, Alert, Oriented x 3 HEENT: Atraumatic Oral: Moist Mucosa Lungs: Clear to auscultation Cardiovascular: Regular Rhythm Abdomen: Soft Extremities: Bilateral Edema +1 Psych/Mental Status: Appropriate 11/19/19 14:59: Hgb 8.8 L, Hct 29.1 L 11/19/19 20:47: Hgb 8.7 L, Hct 29.5 L 11/20/19 03:05: WBC 8.9, RBC 2.88 L, Hgb 8.0 L, Hct 26.2 L, MCV 91.0, MCH 27.8, MCHC 30.5 L, Plt Count 201, MPV 9.5, Immature Gran % (Auto) 1.900 H, Neut % (Auto) 77.0 H, Lymph % (Auto) 8.0 L, [place] % (Auto) 7.7, Eos % (Auto) 5.2 H, Baso % (Auto) 0.2, Absolute Neuts (auto) 6.8, Nucleated RBC % 0 11/20/19 03:05: Sodium 143, Potassium 4.7, Chloride 114 H, Carbon Dioxide 20.0 L, Anion Gap 9, BUN 99 H, Creatinine 2.86 H, Est GFR (MDRD) Af Amer 28 L, Est GFR (MDRD) Non-Af 23 L, BUN/Creatinine Ratio 34.6 H, Glucose 176 H, Calcium 8.4 L, Total Bilirubin 0.80 11/20/19 05:58: PT 15.8 H, INR 1.3, APTT 32.4 Rhythm: EKG: ECHO: Stress Test: Cardiac Cath: PCI: CT Surgery: Holter monitor: EPS: PPM: CXR: Chest CT Scan: Medical Necessity - Tobacco Use Smoking Status: Former smoker Tobacco Use: Non-smoker Assessment/Plan 1. Shortness of breath: Appears to be multifactorial secondary to anemia, diastolic congestive heart failure, acute on chronic renal failure. Patient appears to be responding to IV diuresis. Continue this for now. If his volume status becomes hard to manage without dialysis then he may require hemodialysis as mentioned by the senior solutions consultant. Most likely tomorrow he should be able to be switched to p.o. Lasix. Nephrology service assisting with this as well. 2. Aortic stenosis: Does not appear to be an acute issue at this time. It does not appear to be at a stage where he needs this to be fixed in the near future as well. He will probably need a repeat echo once his acute issues settle down. 3. Coronary artery disease: Continue present management. Patient appears to be stable from the standpoint. We will sign off at this time. 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 Thank very much for letting us participate in the care of this patient. If we can be of further assistance please let us know.
--- NOTE | 2019-11-20 15:43 | PN.CARD_ITS ---
Objective: Vital Signs Temp Pulse Resp BP Pulse Ox 98.4 F 76 16 122/59 H 94 11/20/19 12:38 11/20/19 15:00 11/20/19 14:42 11/20/19 12:38 11/20/19 12:38 Oxygen Flow Rate (L/min) 2 Oxygen Delivery Method Nasal Cannula Weight: 249 lb 5.485 oz Body Mass Index (BMI) 36.8 Finger Stick Blood Glucose 269 Intake and Output for Last 24 Hours 11/18/19 11/19/19 11/20/19 23:59 23:59 23:59 Intake Total 1580 / 1580 2120 / 2120 1070 / 1070 Output Total 2550 / 2550 2850 / 2850 5 / Balance -970 / -970 -730 / -730 1065 / 1065 General: Awake, Alert, Oriented x 3 HEENT: Normocephalic 11/19/19 20:47: Hgb 8.7 L, Hct 29.5 L 11/20/19 03:05: WBC 8.9, RBC 2.88 L, Hgb 8.0 L, Hct 26.2 L, MCV 91.0, MCH 27.8, MCHC 30.5 L, Plt Count 201, MPV 9.5, Immature Gran % (Auto) 1.900 H, Neut % (Auto) 77.0 H, Lymph % (Auto) 8.0 L, [place] % (Auto) 7.7, Eos % (Auto) 5.2 H, Baso % (Auto) 0.2, Absolute Neuts (auto) 6.8, Nucleated RBC % 0 11/20/19 03:05: Sodium 143, Potassium 4.7, Chloride 114 H, Carbon Dioxide 20.0 L , Anion Gap 9, BUN 99 H, Creatinine 2.86 H, Est GFR (MDRD) Af Amer 28 L, Est GFR (MDRD) Non-Af 23 L, BUN/Creatinine Ratio 34.6 H, Glucose 176 H, Calcium 8.4 L, Total Bilirubin 0.80 11/20/19 05:58: PT 15.8 H, INR 1.3, APTT 32.4 Rhythm: EKG: ECHO: Stress Test: Cardiac Cath: PCI: CT Surgery: Holter monitor: EPS: PPM: CXR: Chest CT Scan: Medical Necessity - Tobacco Use Smoking Status: Former smoker Tobacco Use: Non-smoker
[2019-11-20 16:30] LABS: Bedside Glucose 153 mg/dL (70-110)
[2019-11-20] MEDS: Ferrous Sulfate 325 MG Tablet PO (18:08)
[2019-11-20] MEDS: 0.9% Saline Lock 10 ML Syringe IV ×2 (18:15→21:39)
[2019-11-20] MEDS: Insulin Lispro 100 UNIT/ML INSULN.PEN SC (21:32)
[2019-11-20 21:40] LABS: Bedside Glucose 170 mg/dL (70-110)
[2019-11-21] VITALS (20 sets, daily range): BP systolic 112–127; BP diastolic 51–71; PULSE 63–82; RESP 16–20; TEMP 36.6–37; O2SAT 78–98
[2019-11-21 06:22] LABS: Absolute Lymphocyte Count 0.97 X10^3/uL (0.83-4.51); Absolute Neutrophil Count 6.4 X10^3/uL (2.0-7.7); Basophil# 0.03 X10^3/uL; Basophil% 0.3 % (0-1); Eosinophil# 0.45 X10^3/uL; Eosinophils% 5.2 % (0-5); Hematocrit 26.4 % (40-54); Hemoglobin 7.6 g/dL (13.0-16.5); Lymphocyte # 0.97 X10^3/ul (4.0); Lymphocyte % 11.3 % (19-41); Mean Corp Hgb Conc 28.8 g/dL (32-36); Mean Corpuscular Hgb 26.8 pg (27.0-32.0); Mean Platelet Vol. 9.6 fl (6.2-12.0); Monocyte# 0.67 X10^3/uL; Monocyte% 7.8 % (0-10); NRBC Flagged by Analyzer 0 % (0-5); Neutrophil # 6.35 X10^3/uL (2.7-7.7); Neutrophil % 74.1 % (47-70); Platelet Count 196 K/mm3 (150-450); RBC Distribution Width CV 16.9 % (11.6-14.6); RBC Distribution Width SD 56.9 fl (35.1-43.9); Red Blood Count 2.84 M/mm3 (4.6-6.2); White Blood Count 8.6 K/mm3 (4.4-11.0)
[2019-11-21] MEDS: Insulin Lispro 100 UNIT/ML INSULN.PEN SC ×3 (06:38→17:03)
[2019-11-21 06:46] LABS: Bedside Glucose 170 mg/dL (70-110)
[2019-11-21 06:56] LABS: ALB/GLOB Ratio 0.8 RATIO (0.9-2.4); AST(SGOT) 5 U/L (15-37); Alanine Aminotransfer ALT/SGPT 19 U/L (16-61); Albumin, Serum 3.1 g/dL (3.2-5.0); Alkaline Phosphatase 78 U/L (45-117); Anion Gap 7 (5-15); BUN 97 mg/dL (7-18); BUN/Creat Ratio 30.5 RATIO (10-20); Calcium,Total 8.3 mg/dL (8.5-10.1); Chloride 112 mmol/L (98-107); Creatinine, Serum 3.18 mg/dL (0.70-1.30); EST Glomerular Filtration Rate 21 mL/min (>60); Est Glom Filt Rate - Afr Amer 25 mL/min (>60); Estimated Creatinine Clearance 22.23 ml/min; Globulin 3.8 g/dL (2.2-4.2); Glucose 187 mg/dL (74-106); Potassium 4.5 mmol/L (3.5-5.1); Protein, Total 6.9 g/dL (6.4-8.2); Sodium Level 144 mmol/L (136-145)
[2019-11-21] MEDS: Ipratropium/Albuterol Sulfate 3 ML AMPUL.NEB INHALATION ×4 (07:19→18:40)
--- NOTE | 2019-11-21 08:05 | PCM.PN.SRG ---
Subjective: Patient reports no gross blood per rectum. No nausea vomiting or abdominal pain. - Physical Exam Vitals/I&O's: Vital Signs Temp Pulse Resp BP Pulse Ox 98.2 F 63 18 127/64 H 92 11/21/19 03:30 11/21/19 07:00 11/21/19 03:30 11/21/19 03:30 11/21/19 03:30 Oxygen Flow Rate (L/min) 2 Oxygen Delivery Method CPAP Weight: 251 lb 1.704 oz Body Mass Index (BMI) 36.8 Finger Stick Blood Glucose 269 Intake and Output for Last 24 Hours 11/19/19 11/20/19 11/21/19 23:59 23:59 23:59 Intake Total 2120 / 2120 1950 / 1950 200 / 200 Output Total 2850 / 2850 1305 / 1305 550 / 550 Balance -730 / -730 645 / 645 -350 / -350 General: Alert, Oriented x3, Cooperative Lungs: Normal air movement Abdomen: Soft, Non Tender, Non-Distended Microbiology Past 72 Hours 11/18/19 04:20 Stool Stool Occult Blood (JOSE RAMON) - Final Occult Blood Positive Laboratory Results 11/20/19 10:54: POC Glucose 173 H 11/20/19 16:24: POC Glucose 153 H 11/20/19 21:28: POC Glucose 170 H 11/21/19 05:25: WBC 8.6, RBC 2.84 L, Hgb 7.6 L, Hct 26.4 L, MCV 93.0, MCH 26.8 L, MCHC 28.8 L D, RDW Std Deviation 56.9 H, RDW Coeff of Judi 16.9 H, Plt Count 196, MPV 9.6, Immature Gran % (Auto) 1.300 H, Neut % (Auto) 74.1 H, Lymph % (Auto) 11.3 L, [place] % (Auto) 7.8, Eos % (Auto) 5.2 H, Baso % (Auto) 0.3, Absolute Neuts (auto) 6.4, Absolute Lymphs (auto) 0.97, Nucleated RBC % 0 11/21/19 05:25: Sodium 144, Potassium 4.5, Chloride 112 H, Carbon Dioxide 25.0, Anion Gap 7, BUN 97 H, Creatinine 3.18 H, Estim Creat Clear Calc 22.23, Est GFR (MDRD) Af Amer 25 L, Est GFR (MDRD) Non-Af 21 L, BUN/Creatinine Ratio 30.5 H, Glucose 187 H, Calcium 8.3 L, Total Bilirubin 0.70, AST 5 L, ALT 19, Alkaline Phosphatase 78, Total Protein 6.9, Albumin 3.1 L, Globulin 3.8, Albumin/Globulin Ratio 0.8 L 11/21/19 06:36: POC Glucose 170 H Current Medications Acetaminophen (Tylenol) 650 mg PO Q6H PRN PRN PRN Reason: Pain Score 1-10/Temp > 100.7 F Albuterol/Ipratropium (Duoneb) 3 ml INHALATION Q4HWA.RT [facility] Last Admin: 11/21/19 07:19 Dose: 3 ml Documented by: [facility] Last Admin: 11/20/19 13:12 Dose: 100 mg Documented by: Amlodipine Besylate (Norvasc) 5 mg PO BID [facility] Last Admin: 11/20/19 21:32 Dose: 5 mg Documented by: Aspirin (Ecotrin) 81 mg PO DAILY@0800 [facility] Last Admin: 11/20/19 13:12 Dose: 81 mg Documented by: Dextrose (D50w Syringe) 0 gm IV X1 PRN; Protocol PRN Reason: Hypoglycemia Ferrous Sulfate ([facility]ous S[facility]ate) [facility] Last Admin: 11/20/19 18:08 Dose: 325 mg Documented by: Fluoxetine HCl (Prozac) 40 mg PO DAILY [facility] Last Admin: 11/20/19 13:12 Dose: 40 mg Documented by: Furosemide (Lasix) 60 mg IV BID@1000,1800 [facility] Last Admin: 11/20/19 18:08 Dose: 60 mg Documented by: Glucagon () 1 mg IM .X1 PRN PRN Reason: Hypoglycemia Sodium Chloride () 250 mls @ 15 mls/hr IV .[id number] PRN PRN Reason: Saline Flush Sodium Chloride () 250 mls @ 15 mls/hr IV .[id number] PRN PRN Reason: Additional IVPB Infusion Pantoprazole Sodium 40 mg/ (Sodium Chloride) 110 mls @ 330 mls/hr IV Q12 [facility] Last Infusion: 11/20/19 21:58 Dose: Infused Documented by: Insulin Human Lispro (Humalog Kwikpen (Bkc)) 0 unit SC ACHS [facility]; Protocol Last Admin: 11/21/19 06:38 Dose: 1 units Documented by: Isosorbide Mononitrate (Imdur) 30 mg PO DAILY [facility] Last Admin: 11/20/19 08:41 Dose: 30 mg Documented by: Metoprolol Tartrate (Lopressor (Beta Ayde)) 50 mg PO BID [facility] Last Admin: 11/20/19 21:32 Dose: 50 mg Documented by: Nitroglycerin (Nitrostat) 0.4 mg SUBLINGUAL Q5M PRN PRN Reason: CHEST Ondansetron HCl (Zofran) 4 mg IV Q8H PRN PRN PRN Reason: NAUSEA/VOMITING Sodium Chloride () 10 - 40 ml IV UD PRN PRN Reason: SALINE FLUSH Last Admin: 11/20/19 21:39 Dose: 10 ml Documented by: Medical Necessity - Tobacco Use Smoking Status: Former smoker Tobacco Use: Non-smoker Assessment/Plan All Active Problems (Last Reviewed 11/11/19 @ 08:[address] Seth Michael MD) Upper GI bleed (Acute) Anemia (Acute) Dyspnea on exertion (Acute) 69-year-old male with anemia and positive fecal occult blood 1. The patient had a colonoscopy yesterday and 2 polyps were found in the mid transverse colon. No active sources of bleeding were found. Dr. Michael plans to perform EGD on Saturday. Patient is not having any gross active bleeding. Kannan Mckeon MD Pager: [facility] [address] [place] [address], [address] [place] [address] Office:
[2019-11-21] MEDS: Metoprolol Tartrate 50 MG Tablet PO ×2 (09:45→21:53)
[2019-11-21] MEDS: amLODIPine 5 MG Tablet PO ×2 (09:45→21:53)
[2019-11-21] MEDS: Isosorbide Mononitrate 30 MG Tablet PO (09:45)
[2019-11-21] MEDS: FLUoxetine 20 MG Capsule 40 MG PO (09:45)
[2019-11-21] MEDS: Ferrous Sulfate 325 MG Tablet PO ×2 (09:46→17:04)
[2019-11-21] MEDS: Allopurinol 100 MG Tablet PO (09:46)
[2019-11-21] MEDS: Aspirin E.C. 81 MG Tablet PO (09:46)
[2019-11-21] MEDS: Furosemide 100 MG/10 ML Vial 60 MG IV ×2 (10:02→18:17)
--- NOTE | 2019-11-21 10:26 | PN_ITS ---
Subjective: Patient seen and examined. He complains of the fluid restriction but he is on because he thinks he needs to drink more water because of his kidneys. He denies any chest pain, cough, shortness of breath, nausea vomiting or diarrhea. Review of signs otherwise negative. His hemoglobin has dropped to 7.6 today. He had colonoscopy yesterday which was negative apart from 2 polyps which were removed. He is to have EGD on Saturday. Vitals/I&O's: Vital Signs Temp Pulse Resp BP Pulse Ox 97.8 F 74 16 122/55 H 98 11/21/19 09:30 11/21/19 09:45 11/21/19 09:30 11/21/19 09:30 11/21/19 09:30 Oxygen Flow Rate (L/min) 2 Oxygen Delivery Method Nasal Cannula Weight: 251 lb 1.704 oz Body Mass Index (BMI) 36.8 Finger Stick Blood Glucose 269 Intake and Output for Last 24 Hours 11/19/19 11/20/19 11/21/19 23:59 23:59 23:59 Intake Total 2120 / 2120 1950 / 1950 200 / 200 Output Total 2850 / 2850 1305 / 1305 550 / 550 Balance -730 / -730 645 / 645 -350 / -350 General: Alert, Oriented x3, Cooperative, No apparent distress HEENT: Atraumatic, PERRLA, EOMI, Normocephalic Oral: Dry Mucosa Neck: Supple, No JVD, Negative Carotid Bruits Lungs: Clear to auscultation, Normal air movement, No rhonchi, No wheeze, No rales Cardiovascular: Regular rate, No murmurs Abdomen: Bowel Sounds Present, Soft, Non Tender Extremities: No clubbing, No cyanosis, No edema, Capillary Refill Less than 3 Seconds Skin: No rashes, No breakdown Musculoskeletal: No Tenderness to Palpation of Joints or Extremities Lymphatic: No Cervical, Supraclavicular, or Inguinal Adenopathy Neurological: Cranial nerves II-XII grossly intact, Neuro grossly intact, Motor Exam 5/5 strength throughout Psych/Mental Status: Normal Affect, Appropriate, Alert and oriented to time, place, person, mood and affect Laboratory Results 11/20/19 10:54: POC Glucose 173 H 11/20/19 16:24: POC Glucose 153 H 11/20/19 21:28: POC Glucose 170 H 11/21/19 05:25: WBC 8.6, RBC 2.84 L, Hgb 7.6 L, Hct 26.4 L, MCV 93.0, MCH 26.8 L , MCHC 28.8 L D, RDW Std Deviation 56.9 H, RDW Coeff of Judi 16.9 H, Plt Count 196, MPV 9.6, Immature Gran % (Auto) 1.300 H, Neut % (Auto) 74.1 H, Lymph % (Auto) 11.3 L, [place] % (Auto) 7.8, Eos % (Auto) 5.2 H, Baso % (Auto) 0.3, Absolute Neuts (auto) 6.4, Absolute Lymphs (auto) 0.97, Nucleated RBC % 0 11/21/19 05:25: Sodium 144, Potassium 4.5, Chloride 112 H, Carbon Dioxide 25.0, Anion Gap 7, BUN 97 H, Creatinine 3.18 H, Estim Creat Clear Calc 22.23, Est GFR (MDRD) Af Amer 25 L, Est GFR (MDRD) Non-Af 21 L, BUN/Creatinine Ratio 30.5 H, Glucose 187 H, Calcium 8.3 L, Total Bilirubin 0.70, AST 5 L, ALT 19, Alkaline Phosphatase 78, Total Protein 6.9, Albumin 3.1 L, Globulin 3.8, Albumin/Globulin Ratio 0.8 L 11/21/19 06:36: POC Glucose 170 H 11/21/19 10:10: Blood Type Pending, Antibody Screen Pending, Crossmatch See Detail Diagnostic Data Chest X-Ray 11/17/19 10:56 IMPRESSION: Hazy airspace disease/vascular congestion (likely early fluid overload) Cardiomegaly cardiac surgery Electronically Signed: Briec Conner DO at 11:14 EDT Tel , Service support , GI Bleed Scan Nuclear Medicine 11/19/19 10:56 IMPRESSION: 1. ABNORMAL 99m Tc ULTRATAG LABELED BLOOD POOL GASTROINTESTINAL BLEEDING EXAMINATION. 2. Facilitated uptake defined in the right midline abdominal mesentery with apparent antegrade progression to the left mid abdomen is most consistent with an active gastrointestinal hemorrhage with potential origin in the mid transverse colon with progression to the descending colon. Electronically Signed: Yves Melo DO at 14:18 EDT Tel , Service support , ADDENDUM: 11/19/19 9423 IMPRESSION: 1. ABNORMAL 99m Tc ULTRATAG LABELED BLOOD POOL GASTROINTESTINAL BLEEDING EXAMINATION. 2. Facilitated uptake defined in the right midline abdominal mesentery with apparent antegrade progression to the left mid abdomen is most consistent with an active gastrointestinal hemorrhage with potential origin in the mid transverse colon with progression to the descending colon. N.B. : The above information has been verbally conveyed by Yves Melo DO to Dr. Makenzie Lerma MD, on 11/19/2019 14:36:57 (ET). Electronically Signed: Yves Melo DO at 14:18 EDT Tel , Service support , Renal Ultrasound 11/19/19 14:05 IMPRESSION: 1. Bilateral enlarged kidneys. There is mild increase in renal parenchymal echogenicity suggesting medical renal disease. 2. Bilateral renal cysts. There is a septation in the larger cyst in the left kidney. This suggests a Bochdalek 2 classification. 3. Poorly distended but otherwise unremarkable urinary bladder. Electronically Signed: Luis E Fishman DO at 20:10 EDT Tel [phone], Service support , Current Medications Acetaminophen (Tylenol) 650 mg PO Q6H PRN PRN PRN Reason: Pain Score 1-10/Temp > 100.7 F Albuterol/Ipratropium (Duoneb) 3 ml INHALATION Q4HWA.RT [facility] Last Admin: 11/21/19 07:19 Dose: 3 ml Documented by: Allopurinol (Zyloprim) 100 mg PO DAILYCM [facility] Last Admin: 11/21/19 09:46 Dose: 100 mg Documented by: Amlodipine Besylate (Norvasc) 5 mg PO BID [facility] Last Admin: 11/21/19 09:45 Dose: 5 mg Documented by: Aspirin (Ecotrin) 81 mg PO DAILY@0800 [facility] Last Admin: 11/21/19 09:46 Dose: 81 mg Documented by: Dextrose (D50w Syringe) 0 gm IV X1 PRN; Protocol PRN Reason: Hypoglycemia Ferrous Sulfate (Ferrous Sulfate) 325 mg PO BIDCM [facility] Last Admin: 11/21/19 09:46 Dose: 325 mg Documented by: Fluoxetine HCl (Prozac) 40 mg PO DAILY [facility] Last Admin: 11/21/19 09:45 Dose: 40 mg Documented by: Furosemide (Lasix) 60 mg IV BID@1000,1800 [facility] Last Admin: 11/21/19 10:02 Dose: 60 mg Documented by: Glucagon () 1 mg IM .X1 PRN PRN Reason: Hypoglycemia Sodium Chloride () 250 mls @ 15 mls/hr IV .[id number] PRN PRN Reason: Saline Flush Sodium Chloride () 250 mls @ 15 mls/hr IV .[id number] PRN PRN Reason: Additional IVPB Infusion Pantoprazole Sodium 40 mg/ (Sodium Chloride) 110 mls @ 330 mls/hr IV Q12 [facility] Last Admin: 11/21/19 10:02 Dose: 330 mls/hr Documented by: Insulin Human Lispro (Humalog Kwikpen (Bkc)) 0 unit SC ACHS [facility]; Protocol Last Admin: 11/21/19 06:38 Dose: 1 units Documented by: Isosorbide Mononitrate (Imdur) 30 mg PO DAILY [facility] Last Admin: 11/21/19 09:45 Dose: 30 mg Documented by: Metoprolol Tartrate (Lopressor (Beta Ayde)) 50 mg PO BID [facility] Last Admin: 11/21/19 09:45 Dose: 50 mg Documented by: Nitroglycerin (Nitrostat) 0.4 mg SUBLINGUAL Q5M PRN PRN Reason: CHEST Ondansetron HCl (Zofran) 4 mg IV Q8H PRN PRN PRN Reason: NAUSEA/VOMITING Sodium Chloride () 10 - 40 ml IV UD PRN PRN Reason: SALINE FLUSH Last Admin: 11/20/19 21:39 Dose: 10 ml Documented by: STROKE Vital Signs/Narrative: Vital Signs Temp Pulse Resp BP Pulse Ox 11/21/19 09:45 74 11/21/19 09:30 97.8 F 74 16 122/55 H 98 11/21/19 07:15 79 20 H 98 11/21/19 07:00 63 Medical Necessity - Tobacco Use Smoking Status: Former smoker Tobacco Use: Non-smoker Assessment/Plan All Active Problems (Last Reviewed 11/11/19 @ 08:[address] Seth Michael MD) Upper GI bleed (Acute) Anemia (Acute) Dyspnea on exertion (Acute) #Acute hypoxic respiratory failure * due to acute exacerbation of heart failure * on 2L of oxygen at time of review; titrate oxygen to maintain sats >90% * on breathing treatments with duonebs * # Acute on chronic HFpEF * likely worsened by progressively worsening aortic stenosis * on IV lasix 60mg bid * in negative balance by 1.82L since admission * patient said he didnt understand why he had to restrict fluid to 1500cc daily, as he felt he had to drink more to flush out his kidneys. Patient counseled that he needs to fluid restrict to 1500 cc daily because of his acute exacerbation of heart failure. * # EDGARDO on CKD * Creatinine is up to 3.18 today from 2.86. This is actually around his baseline as his baseline ranges between 2 and 3. * nephrology on board. Recommend continue patient on same dose of diuretics and no WILMER inhibitor or ARB for now. Recommend getting urology evaluation for complex renal cyst. * to follow up with urology on outpatient basis for evaluation of * # elevated D dimer * CTA of the chest not done on account of EDGARDO on CKD. Therapeutic Lovenox also discontinued due to suspicion for GI bleed. 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 Accuchecks ACHS * # DASHA: on BIPAP # CAD s/p CABG * also s/p stents. on aspirin, metoprolol and imdur. Will hold aspirin for now due to GI bleed * # Hypertension: on amlodipine. DVT prophylaxis: SCDs Inpatient E&M: 34873 Subs Hosp L3
--- NOTE | 2019-11-21 11:31 | CASEMGMT ---
RN CM Note: intro role of CM to patient and his . Pt does not wish to transfer to [facility], and states if transfer to tertiary care is needed, he would like [facility]. Declination to transfer form signed and faxed to [facility]. Copy to chart. Remington TANNERN RN ACM
[2019-11-21 12:00] LABS: Bedside Glucose 252 mg/dL (70-110)
[2019-11-21] MEDS: 0.9% Saline Lock 10 ML Syringe IV ×3 (13:26→21:51)
[2019-11-21 17:21] LABS: Bedside Glucose 182 mg/dL (70-110)
[2019-11-21 23:51] LABS: Bedside Glucose 134 mg/dL (70-110)
[2019-11-22] VITALS (17 sets, daily range): BP systolic 113–139; BP diastolic 48–66; PULSE 59–86; RESP 11–18; TEMP 36.6–37.4; O2SAT 85–100
[2019-11-22] MEDS: Insulin Lispro 100 UNIT/ML INSULN.PEN SC ×3 (06:41→17:00)
[2019-11-22 06:51] LABS: Bedside Glucose 163 mg/dL (70-110)
[2019-11-22] MEDS: Ipratropium/Albuterol Sulfate 3 ML AMPUL.NEB INHALATION ×4 (07:17→18:53)
[2019-11-22] MEDS: Ferrous Sulfate 325 MG Tablet PO ×2 (08:28→17:00)
[2019-11-22] MEDS: Allopurinol 100 MG Tablet PO (08:28)
[2019-11-22 08:41] LABS: Absolute Lymphocyte Count 0.95 X10^3/uL (0.83-4.51); Absolute Neutrophil Count 6.2 X10^3/uL (2.0-7.7); Basophil# 0.03 X10^3/uL; Basophil% 0.4 % (0-1); Eosinophil# 0.48 X10^3/uL; Eosinophils% 5.8 % (0-5); Hematocrit 30.7 % (40-54); Hemoglobin 9.1 g/dL (13.0-16.5); Lymphocyte # 0.95 X10^3/ul (4.0); Lymphocyte % 11.4 % (19-41); Mean Corp Hgb Conc 29.6 g/dL (32-36); Mean Corpuscular Hgb 27.2 pg (27.0-32.0); Mean Corpuscular Volume 91.6 fL (80-94); Mean Platelet Vol. 9.3 fl (6.2-12.0); Monocyte# 0.52 X10^3/uL; Monocyte% 6.3 % (0-10); NRBC Flagged by Analyzer 0 % (0-5); Neutrophil # 6.24 X10^3/uL (2.7-7.7); Neutrophil % 75.1 % (47-70); Platelet Count 218 K/mm3 (150-450); RBC Distribution Width CV 17.9 % (11.6-14.6); RBC Distribution Width SD 59.2 fl (35.1-43.9); Red Blood Count 3.35 M/mm3 (4.6-6.2); White Blood Count 8.3 K/mm3 (4.4-11.0)
--- NOTE | 2019-11-22 09:28 | PN.SURG_ITS ---
Subjective: The patient describes no abdominal pain or gross blood in his stool - Physical Exam Vitals/I&O's: Vital Signs Temp Pulse Resp BP Pulse Ox 98.6 F 71 16 135/65 H 100 11/22/19 08:35 11/22/19 08:35 11/22/19 08:35 11/22/19 08:35 11/22/19 08:35 Oxygen Flow Rate (L/min) 2 Oxygen Delivery Method Nasal Cannula Weight: 246 lb 0.574 oz Body Mass Index (BMI) 36.8 Finger Stick Blood Glucose 269 Intake and Output for Last 24 Hours 11/20/19 11/21/19 11/22/19 23:59 23:59 23:59 Intake Total 1950 / 1950 1852 / 1852 380 / 380 Output Total 1305 / 1305 2750 / 2750 300 / 300 Balance 645 / 645 -898 / -898 80 / 80 General: Alert, Oriented x3 Lungs: Normal air movement Abdomen: Soft, Non Tender, Non-Distended Laboratory Results 11/21/19 10:10: Blood Type B POSITIVE, Antibody Screen NEGATIVE, Crossmatch See Detail 11/21/19 11:38: POC Glucose 252 H 11/21/19 17:01: POC Glucose 182 H 11/21/19 21:37: POC Glucose 134 H 11/22/19 06:39: POC Glucose 163 H 11/22/19 08:15: WBC 8.3, RBC 3.35 L, Hgb 9.1 L, Hct 30.7 L, MCV 91.6, MCH 27.2, MCHC 29.6 L, RDW Std Deviation 59.2 H, RDW Coeff of Judi 17.9 H, Plt Count 218, MPV 9.3, Immature Gran % (Auto) 1.000 H, Neut % (Auto) 75.1 H, Lymph % (Auto) 11.4 L, [place] % (Auto) 6.3, Eos % (Auto) 5.8 H, Baso % (Auto) 0.4, Absolute Neuts (auto) 6.2, Absolute Lymphs (auto) 0.95, Nucleated RBC % 0 11/22/19 08:15: Sodium Pending, Potassium Pending, Chloride Pending, Carbon Dioxide Pending, BUN Pending, Creatinine Pending, Est GFR (MDRD) Af Amer Pending, Est GFR (MDRD) Non-Af Pending, BUN/Creatinine Ratio Pending, Glucose Pending, Calcium Pending, Phosphorus Pending, Albumin Pending Current Medications Acetaminophen (Tylenol) 650 mg PO Q6H PRN PRN PRN Reason: Pain Score 1-10/Temp > 100.7 F Albuterol/Ipratropium (Duoneb) 3 ml INHALATION Q4HWA.RT [facility] Last Admin: 11/22/19 07:17 Dose: 3 ml Documented by: [facility] ([facility]op[facility]) [facility] Last Admin: 11/22/19 08:28 Dose: 100 mg Documented by: Amlodipine Besylate (Norvasc) 5 mg PO BID [facility] Last Admin: 11/21/19 21:53 Dose: 5 mg Documented by: Aspirin (Ecotrin) 81 mg PO DAILY@0800 [facility] Last Admin: 11/21/19 09:46 Dose: 81 mg Documented by: Dextrose (D50w Syringe) 0 gm IV X1 PRN; Protocol PRN Reason: Hypoglycemia Ferrous Sulfate (Ferrous Sulfate) [facility] Last Admin: 11/22/19 08:28 Dose: 325 mg Documented by: Fluoxetine HCl (Prozac) 40 mg PO DAILY [facility] Last Admin: 11/21/19 09:45 Dose: 40 mg Documented by: Furosemide (Lasix) 60 mg IV BID@1000,1800 [facility] Last Admin: 11/21/19 18:17 Dose: 60 mg Documented by: Glucagon () 1 mg IM .X1 PRN PRN Reason: Hypoglycemia Sodium Chloride () 250 mls @ 15 mls/hr IV .[id number] PRN PRN Reason: Saline Flush Last Infusion: 11/21/19 23:40 Dose: 0 mls/hr Documented by: Sodium Chloride () 250 mls @ 15 mls/hr IV .[id number] PRN PRN Reason: Additional IVPB Infusion Pantoprazole Sodium 40 mg/ (Sodium Chloride) 110 mls @ 330 mls/hr IV Q12 [facility] Last Infusion: 11/21/19 22:12 Dose: Infused Documented by: Insulin Human Lispro (Humalog Kwikpen (Bkc)) 0 unit SC ACHS [facility]; Protocol Last Admin: 11/22/19 06:41 Dose: 1 units Documented by: Isosorbide Mononitrate (Imdur) 30 mg PO DAILY [facility] Last Admin: 11/21/19 09:45 Dose: 30 mg Documented by: Metoprolol Tartrate (Lopressor (Beta Ayde)) 50 mg PO BID [facility] Last Admin: 11/21/19 21:53 Dose: 50 mg Documented by: Nitroglycerin (Nitrostat) 0.4 mg SUBLINGUAL Q5M PRN PRN Reason: CHEST Ondansetron HCl (Zofran) 4 mg IV Q8H PRN PRN PRN Reason: NAUSEA/VOMITING Sodium Chloride () 10 - 40 ml IV UD PRN PRN Reason: SALINE FLUSH Last Admin: 11/21/19 21:51 Dose: 10 ml Documented by: Medical Necessity - Tobacco Use Smoking Status: Former smoker Tobacco Use: Non-smoker Assessment/Plan All Active Problems (Last Reviewed 11/11/19 @ 08:[address] Seth Michael MD) Upper GI bleed (Acute) Anemia (Acute) Dyspnea on exertion (Acute) 69-year-old male with anemia and positive fecal occult blood 1. The patient had colonoscopy on Saturday with no gross blood in his stool. According to the patient he is to have an EGD tomorrow so I will make him n.p.o. after midnight. Kannan Mckeon MD Pager: [facility] [address] [place] [address], [address] [place] [address] Office:
[2019-11-22 09:30] LABS: Albumin, Serum 3.4 g/dL (3.2-5.0); BUN 104 mg/dL (7-18); BUN/Creat Ratio 31.9 RATIO (10-20); Calcium,Total 8.6 mg/dL (8.5-10.1); Chloride 117 mmol/L (98-107); Creatinine, Serum 3.26 mg/dL (0.70-1.30); EST Glomerular Filtration Rate 20 mL/min (>60); Est Glom Filt Rate - Afr Amer 24 mL/min (>60); Estimated Creatinine Clearance 21.69 ml/min; Glucose 178 mg/dL (74-106); Phosphorus 5.1 mg/dL (2.5-4.9); Potassium 4.4 mmol/L (3.5-5.1); Sodium Level 146 mmol/L (136-145)
[2019-11-22] MEDS: 0.9% Saline Lock 10 ML Syringe IV ×2 (10:19→23:11)
[2019-11-22] MEDS: FLUoxetine 20 MG Capsule 40 MG PO (10:24)
[2019-11-22] MEDS: amLODIPine 5 MG Tablet PO ×2 (10:24→23:10)
[2019-11-22] MEDS: Metoprolol Tartrate 50 MG Tablet PO ×2 (10:24→23:10)
[2019-11-22] MEDS: Isosorbide Mononitrate 30 MG Tablet PO (10:24)
--- NOTE | 2019-11-22 11:39 | PCM.PN.HOSP ---
Subjective: Patient seen and examined. he feels better today, and has no complaints. Shortness of breath is improving. Review of systems otherwise negative. Labs and vitals reviewed. He has remained hemodynamically stable. Saturation did drop to 85% with ambulation on room air. Sodium is up to 146 today and creatinine is 3.26. Vitals/I&O's: Vital Signs Temp Pulse Resp BP Pulse Ox 98.6 F 68 16 131/66 H 100 11/22/19 08:35 11/22/19 11:05 11/22/19 08:35 11/22/19 10:24 11/22/19 08:35 Oxygen Flow Rate (L/min) 2 Oxygen Delivery Method Nasal Cannula Weight: 246 lb 0.574 oz Body Mass Index (BMI) 36.8 Finger Stick Blood Glucose 269 Intake and Output for Last 24 Hours 11/20/19 11/21/19 11/22/19 23:59 23:59 23:59 Intake Total 1950 / 1950 1852 / 1852 497.75 / 497.75 Output Total 1305 / 1305 2750 / 2750 300 / 300 Balance 645 / 645 -898 / -898 197.75 / 197.75 General: Alert, Oriented x3, Cooperative, No apparent distress HEENT: Atraumatic, PERRLA, EOMI, Normocephalic Oral: Dry Mucosa Neck: Supple, No JVD, Negative Carotid Bruits Lungs: Clear to auscultation, Normal air movement, No rhonchi, No wheeze, No rales; on 2L of oxygen Cardiovascular: Regular rate, No murmurs Abdomen: Bowel Sounds Present, Soft, Non Tender Extremities: No clubbing, No cyanosis, No edema, Capillary Refill Less than 3 Seconds Skin: No rashes, No breakdown Musculoskeletal: No Tenderness to Palpation of Joints or Extremities Lymphatic: No Cervical, Supraclavicular, or Inguinal Adenopathy Neurological: Cranial nerves II-XII grossly intact, Neuro grossly intact, Motor Exam 5/5 strength throughout Psych/Mental Status: Normal Affect, Appropriate, Alert and oriented to time, place, person, mood and affect Laboratory Results 11/21/19 10:10: Blood Type B POSITIVE, Antibody Screen NEGATIVE, Crossmatch See Detail 11/21/19 11:38: POC Glucose 252 H 11/21/19 17:01: POC Glucose 182 H 11/21/19 21:37: POC Glucose 134 H 11/22/19 06:39: POC Glucose 163 H 11/22/19 08:15: WBC 8.3, RBC 3.35 L, Hgb 9.1 L, Hct 30.7 L, MCV 91.6, MCH 27.2, MCHC 29.6 L, RDW Std Deviation 59.2 H, RDW Coeff of Judi 17.9 H, Plt Count 218, MPV 9.3, Immature Gran % (Auto) 1.000 H, Neut % (Auto) 75.1 H, Lymph % (Auto) 11.4 L, [place] % (Auto) 6.3, Eos % (Auto) 5.8 H, Baso % (Auto) 0.4, Absolute Neuts (auto) 6.2, Absolute Lymphs (auto) 0.95, Nucleated RBC % 0 11/22/19 08:15: Sodium 146 H, Potassium 4.4, Chloride 117 H, Carbon Dioxide 22.0, BUN 104 H*, Creatinine 3.26 H, Estim Creat Clear Calc 21.69, Est GFR (MDRD) Af Amer 24 L, Est GFR (MDRD) Non-Af 20 L, BUN/Creatinine Ratio 31.9 H, Glucose 178 H, Calcium 8.6, Phosphorus 5.1 H, Albumin 3.4 Diagnostic Data Chest X-Ray 11/17/19 10:56 IMPRESSION: Hazy airspace disease/vascular congestion (likely early fluid overload) Cardiomegaly cardiac surgery Electronically Signed: Brice Conner, at 11:14 EDT Tel , Service support , GI Bleed Scan Nuclear Medicine 11/19/19 10:56 IMPRESSION: 1. ABNORMAL 99m Tc ULTRATAG LABELED BLOOD POOL GASTROINTESTINAL BLEEDING EXAMINATION. 2. Facilitated uptake defined in the right midline abdominal mesentery with apparent antegrade progression to the left mid abdomen is most consistent with an active gastrointestinal hemorrhage with potential origin in the mid transverse colon with progression to the descending colon. Electronically Signed: Yves Melo, at 14:18 EDT Tel , Service support , ADDENDUM: 11/19/19 1443 IMPRESSION: 1. ABNORMAL 99m Tc ULTRATAG LABELED BLOOD POOL GASTROINTESTINAL BLEEDING EXAMINATION. 2. Facilitated uptake defined in the right midline abdominal mesentery with apparent antegrade progression to the left mid abdomen is most consistent with an active gastrointestinal hemorrhage with potential origin in the mid transverse colon with progression to the descending colon. N.B. : The above information has been verbally conveyed by Yves Melo DO to Dr. Makenzie Lerma MD, on 11/19/2019 14:36:57 (ET). Electronically Signed: Yves Melo DO at 14:18 EDT Tel , Service support , Renal Ultrasound 11/19/19 14:05 IMPRESSION: 1. Bilateral enlarged kidneys. There is mild increase in renal parenchymal echogenicity suggesting medical renal disease. 2. Bilateral renal cysts. There is a septation in the larger cyst in the left kidney. This suggests a Bochdalek 2 classification. 3. Poorly distended but otherwise unremarkable urinary bladder. Electronically Signed: Luis E Fishman DO at 20:10 EDT Tel [phone], Service support , Current Medications Acetaminophen (Tylenol) 650 mg PO Q6H PRN PRN PRN Reason: Pain Score 1-10/Temp > 100.7 F Albuterol/Ipratropium (Duoneb) 3 ml INHALATION Q4HWA.RT [facility] Last Admin: 11/22/19 11:22 Dose: 3 ml Documented by: Allopurinol (Zyloprim) 100 mg PO DAILYCM [facility] Last Admin: 11/22/19 08:28 Dose: 100 mg Documented by: Amlodipine Besylate (Norvasc) 5 mg PO BID [facility] Last Admin: 11/22/19 10:24 Dose: 5 mg Documented by: Aspirin (Ecotrin) 81 mg PO DAILY@0800 [facility] Last Admin: 11/21/19 09:46 Dose: 81 mg Documented by: Dextrose (D50w Syringe) 0 gm IV X1 PRN; Protocol PRN Reason: Hypoglycemia Ferrous Sulfate (Ferrous Sulfate) 325 mg PO BIDCM [facility] Last Admin: 11/22/19 08:28 Dose: 325 mg Documented by: Fluoxetine HCl (Prozac) 40 mg PO DAILY [facility] Last Admin: 11/22/19 10:24 Dose: 40 mg Documented by: Furosemide (Lasix) 60 mg PO BID@1000,1800 [facility] Glucagon () 1 mg IM .X1 PRN PRN Reason: Hypoglycemia Sodium Chloride () 250 mls @ 15 mls/hr IV .[id number] PRN PRN Reason: Saline Flush Last Infusion: 11/22/19 11:09 Dose: 0 mls/hr Documented by: Sodium Chloride () 250 mls @ 15 mls/hr IV .[id number] PRN PRN Reason: Additional IVPB Infusion Pantoprazole Sodium 40 mg/ (Sodium Chloride) 110 mls @ 330 mls/hr IV Q12 [facility] Last Infusion: 11/22/19 10:38 Dose: Infused Documented by: Insulin Human Lispro (Humalog Kwikpen (Bkc)) 0 unit SC ACHS [facility]; Protocol Last Admin: 11/22/19 11:34 Dose: 1 units Documented by: Isosorbide Mononitrate (Imdur) 30 mg PO DAILY [facility] Last Admin: 11/22/19 10:24 Dose: 30 mg Documented by: Metoprolol Tartrate (Lopressor (Beta Ayde)) 50 mg PO BID [facility] Last Admin: 11/22/19 10:24 Dose: 50 mg Documented by: Nitroglycerin (Nitrostat) 0.4 mg SUBLINGUAL Q5M PRN PRN Reason: CHEST Ondansetron HCl (Zofran) 4 mg IV Q8H PRN PRN PRN Reason: NAUSEA/VOMITING Sodium Chloride () 10 - 40 ml IV UD PRN PRN Reason: SALINE FLUSH Last Admin: 11/22/19 10:19 Dose: 10 ml Documented by: STROKE Vital Signs/Narrative: Vital Signs Temp Pulse Resp BP Pulse Ox Pulse Ox Pulse Ox 11/22/19 11:05 68 11/22/19 10:24 69 131/66 H 11/22/19 08:35 98.6 F 71 16 135/65 H 100 11/22/19 08:16 85 95 Medical Necessity - Tobacco Use Smoking Status: Former smoker Tobacco Use: Non-smoker Assessment/Plan All Active Problems (Last Reviewed 11/11/19 @ 08:[address] Seth Michael MD) Upper GI bleed (Acute) Anemia (Acute) Dyspnea on exertion (Acute) #Acute hypoxic respiratory failure due to acute exacerbation of heart failure on 2L of oxygen at time of review; titrate oxygen to maintain sats >90% on breathing treatments with duonebs # Acute on chronic HFpEF likely worsened by progressively worsening aortic stenosis on IV lasix 60mg bid; will switch to PO lasix 60mg bid in negative balance by 1.82L since admission patient counseled again about need to stick to fluid restriction daily o/a of heart failure. # EDGARDO on CKD Creatinine is up to 3.26 today. nephrology on board. Recommend continue patient on same dose of diuretics and no WILMER inhibitor or ARB for now. to follow up with urology on outpatient basis for evaluation of renal cyst # elevated D dimer CTA of the chest not done on account of EDGARDO on CKD. Therapeutic Lovenox also discontinued due to suspicion for GI bleed. Low threshold of suspicion for PE now pulmonology on board # Acute on chronic anemia du to GI bleed Hb today is 9.1 after he was transfused with one unit of PRBC he had colonoscopy yesterday with findings of polyps, which wre removed] for EGD on tomorrow on oral iron supplements on IV pantoprazole had a bleeding scan on 11/19/19 which was positive for bleeding in the mid transverse colon transfuse one unit of PRBC today to keep Hb >8 # Type 2 diabetes mellitus with nephropathy ISS. Accuchecks ACHS # DASHA: on BIPAP # CAD s/p CABG also s/p stents. on aspirin, metoprolol and imdur. Will hold aspirin for now due to GI bleed # Hypertension: on amlodipine. DVT prophylaxis: SCDs Inpatient E&M: 01797 Subs Hosp L3
--- NOTE | 2019-11-22 14:36 | PCM.PN.REN ---
Subjective: no new complaints breathing is better BUN high - Physical Exam Vitals/I&O's: Vital Signs Temp Pulse Resp BP Pulse Ox 98.6 F 68 16 131/66 H 100 11/22/19 08:35 11/22/19 11:05 11/22/19 08:35 11/22/19 10:24 11/22/19 08:35 Oxygen Flow Rate (L/min) 2 Oxygen Delivery Method Nasal Cannula Weight: 111.6 kg Body Mass Index (BMI) 36.8 Finger Stick Blood Glucose 269 Intake and Output for Last 24 Hours 11/20/19 11/21/19 11/22/19 23:59 23:59 23:59 Intake Total 1950 / 1950 1852 / 1852 847.75 / 847.75 Output Total 1305 / 1305 2750 / 2750 1275 / 1275 Balance 645 / 645 -898 / -898 -427.25 / -427.25 General: Alert, Oriented x3, Cooperative HEENT: Atraumatic, PERRLA, EOMI, Normocephalic Neck: Supple, No JVD, Negative Carotid Bruits Lungs: Clear to auscultation, Normal air movement Cardiovascular: Regular rate, No murmurs Abdomen: Bowel Sounds Present, Soft, Non Tender Extremities: Capillary Refill Less than 3 Seconds, Edema Skin: No rashes, No breakdown Musculoskeletal: No Tenderness to Palpation of Joints or Extremities Neurological: Cranial nerves II-XII grossly intact Psych/Mental Status: Normal Affect, Appropriate Laboratory Results 11/21/19 10:10: Crossmatch See Detail 11/21/19 17:01: POC Glucose 182 H 11/21/19 21:37: POC Glucose 134 H 11/22/19 06:39: POC Glucose 163 H 11/22/19 08:15: WBC 8.3, RBC 3.35 L, Hgb 9.1 L, Hct 30.7 L, MCV 91.6, MCH 27.2, MCHC 29.6 L, RDW Std Deviation 59.2 H, RDW Coeff of Judi 17.9 H, Plt Count 218, MPV 9.3, Immature Gran % (Auto) 1.000 H, Neut % (Auto) 75.1 H, Lymph % (Auto) 11.4 L, [place] % (Auto) 6.3, Eos % (Auto) 5.8 H, Baso % (Auto) 0.4, Absolute Neuts (auto) 6.2, Absolute Lymphs (auto) 0.95, Nucleated RBC % 0 11/22/19 08:15: Sodium 146 H, Potassium 4.4, Chloride 117 H, Carbon Dioxide 22.0, BUN 104 H*, Creatinine 3.26 H, Estim Creat Clear Calc 21.69, Est GFR (MDRD) Af Amer 24 L, Est GFR (MDRD) Non-Af 20 L, BUN/Creatinine Ratio 31.9 H, Glucose 178 H, Calcium 8.6, Phosphorus 5.1 H, Albumin 3.4 Current Medications Acetaminophen (Tylenol) 650 mg PO Q6H PRN PRN PRN Reason: Pain Score 1-10/Temp > 100.7 F Albuterol/Ipratropium (Duoneb) 3 ml INHALATION Q4HWA.RT [facility] Last Admin: 11/22/19 11:22 Dose: 3 ml Documented by: [facility] Last Admin: 11/22/19 08:28 Dose: 100 mg Documented by: Amlodipine Besylate (Norvasc) 5 mg PO BID [facility] Last Admin: 11/22/19 10:24 Dose: 5 mg Documented by: Aspirin (Ecotrin) 81 mg PO DAILY@0800 [facility] Last Admin: 11/21/19 09:46 Dose: 81 mg Documented by: Dextrose (D50w Syringe) 0 gm IV X1 PRN; Protocol PRN Reason: Hypoglycemia Ferrous Sulfate ([facility]ate) [facility] Last Admin: 11/22/19 08:28 Dose: 325 mg Documented by: Fluoxetine HCl (Prozac) 40 mg PO DAILY [facility] Last Admin: 11/22/19 10:24 Dose: 40 mg Documented by: Furosemide (Lasix) 60 mg PO BID@1000,1800 [facility] Glucagon () 1 mg IM .X1 PRN PRN Reason: Hypoglycemia Sodium Chloride () 250 mls @ 15 mls/hr IV .[id number] PRN PRN Reason: Saline Flush Last Infusion: 11/22/19 11:09 Dose: 0 mls/hr Documented by: Sodium Chloride () 250 mls @ 15 mls/hr IV .[id number] PRN PRN Reason: Additional IVPB Infusion Pantoprazole Sodium 40 mg/ (Sodium Chloride) 110 mls @ 330 mls/hr IV Q12 [facility] Last Infusion: 11/22/19 10:38 Dose: Infused Documented by: Insulin Human Lispro (Humalog Kwikpen (Bkc)) 0 unit SC ACHS [facility]; Protocol Last Admin: 11/22/19 11:34 Dose: 1 units Documented by: Isosorbide Mononitrate (Imdur) 30 mg PO DAILY [facility] Last Admin: 11/22/19 10:24 Dose: 30 mg Documented by: Metoprolol Tartrate (Lopressor (Beta Ayde)) 50 mg PO BID [facility] Last Admin: 11/22/19 10:24 Dose: 50 mg Documented by: Nitroglycerin (Nitrostat) 0.4 mg SUBLINGUAL Q5M PRN PRN Reason: CHEST Ondansetron HCl (Zofran) 4 mg IV Q8H PRN PRN PRN Reason: NAUSEA/VOMITING Sodium Chloride () 10 - 40 ml IV UD PRN PRN Reason: SALINE FLUSH Last Admin: 11/22/19 10:19 Dose: 10 ml Documented by: Medical Necessity - Tobacco Use Smoking Status: Former smoker Tobacco Use: Non-smoker Assessment/Plan All Active Problems (Last Reviewed 11/11/19 @ 08:[address] Seth Michael MD) Upper GI bleed (Acute) Anemia (Acute) Dyspnea on exertion (Acute)
[2019-11-22 15:56] LABS: Bedside Glucose 219 mg/dL (70-110)
[2019-11-22] MEDS: Furosemide 20 MG Tablet 60 MG PO (17:04)
[2019-11-22 17:46] LABS: Bedside Glucose 187 mg/dL (70-110)
[2019-11-23] VITALS (22 sets, daily range): BP systolic 107–130; BP diastolic 51–80; PULSE 66–98; RESP 10–18; TEMP 36.4–36.9; O2SAT 94–99; BMI 36.1
[2019-11-23 01:06] LABS: Bedside Glucose 143 mg/dL (70-110)
--- NOTE | 2019-11-23 05:00 | EKG12_ITS ---
Test Reason : AM Blood Pressure : / mmHG Vent. Rate : 066 BPM Atrial Rate : 066 BPM P-R Int : 166 ms QRS Dur : 098 ms QT Int : 448 ms P-R-T Axes : 105 074 084 degrees QTc Int : 469 ms Normal sinus rhythm Nonspecific T wave abnormality Abnormal ECG When compared with ECG of 19-NOV-2019 14:03, MANUAL COMPARISON REQUIRED, DATA IS UNCONFIRMED Confirmed by ZEN VANN ([id number]), multimedia editor KYLE SIDDIQI ([id number]) on 11/26/2019 9:05:45 AM Referred By: BRISA Confirmed By:ZEN VANN
[2019-11-23 05:05] LABS: Absolute Lymphocyte Count 0.75 X10^3/uL (0.83-4.51); Absolute Neutrophil Count 6.5 X10^3/uL (2.0-7.7); Basophil# 0.01 X10^3/uL; Basophil% 0.1 % (0-1); Eosinophil# 0.38 X10^3/uL; Eosinophils% 4.6 % (0-5); Hematocrit 28.4 % (40-54); Hemoglobin 8.5 g/dL (13.0-16.5); Lymphocyte # 0.75 X10^3/ul (4.0); Lymphocyte % 9.1 % (19-41); Mean Corp Hgb Conc 29.9 g/dL (32-36); Mean Corpuscular Hgb 27.2 pg (27.0-32.0); Mean Corpuscular Volume 90.7 fL (80-94); Mean Platelet Vol. 9.2 fl (6.2-12.0); Monocyte% 6.1 % (0-10); NRBC Flagged by Analyzer 0 % (0-5); Neutrophil # 6.52 X10^3/uL (2.7-7.7); Neutrophil % 79.1 % (47-70); Platelet Count 201 K/mm3 (150-450); RBC Distribution Width CV 17.5 % (11.6-14.6); RBC Distribution Width SD 57.2 fl (35.1-43.9); Red Blood Count 3.13 M/mm3 (4.6-6.2); White Blood Count 8.2 K/mm3 (4.4-11.0)
[2019-11-23 05:20] LABS: International Normalized Ratio 1.3; Prothrombin Time (Protime)PT. 15.2 SECONDS (11.7-14.9)
[2019-11-23 05:21] LABS: Partial Thromboplast Time 31.2 Seconds (24.1-36.2)
[2019-11-23 05:25] LABS: Anion Gap 7 (5-15); BUN 102 mg/dL (7-18); BUN/Creat Ratio 29.7 RATIO (10-20); Calcium,Total 8.3 mg/dL (8.5-10.1); Chloride 119 mmol/L (98-107); Creatinine, Serum 3.43 mg/dL (0.70-1.30); EST Glomerular Filtration Rate 19 mL/min (>60); Est Glom Filt Rate - Afr Amer 23 mL/min (>60); Estimated Creatinine Clearance 20.61 ml/min; Glucose 200 mg/dL (74-106); Potassium 4.5 mmol/L (3.5-5.1); Sodium Level 148 mmol/L (136-145)
[2019-11-23] MEDS: 0.9% Saline Lock 10 ML Syringe IV ×3 (06:39→12:29)
[2019-11-23] MEDS: Ipratropium/Albuterol Sulfate 3 ML AMPUL.NEB INHALATION ×3 (07:00→20:05)
[2019-11-23 07:46] LABS: Bedside Glucose 184 mg/dL (70-110)
[2019-11-23 08:58] LABS: Hemoglobin A1c 6.2 % (3.8-5.6)
--- NOTE | 2019-11-23 09:50 | NURSING ---
Report called to RN in AC.
--- NOTE | 2019-11-23 10:44 | OP.EGD_ITS ---
Patient Name: Mt Gardner Procedure Date: 11/23/2019 10:24 AM Date of : 1950 Age: 69 Procedure: Upper GI endoscopy Indications: Coffee-ground emesis, Hematochezia Providers: Seth Michael MD Medicines: See the Anesthesia note for documentation of the administered medications Patient Profile: This is a 69 year old male. Refer to note in patient chart for documentation of history and physical. Complications: No immediate complications. Procedure: Pre-Anesthesia Assessment: - Prior to the procedure, a History and Physical was performed, and patient medications and allergies were reviewed. The patient's tolerance of previous anesthesia was also reviewed. The risks and benefits of the procedure and the sedation options and risks were discussed with the patient. All questions were answered, and informed consent was obtained. Prior Anticoagulants: The patient has taken no previous anticoagulant or antiplatelet agents. ASA Grade Assessment: III - A patient with severe systemic disease. After reviewing the risks and benefits, the patient was deemed in satisfactory condition to undergo the procedure. After obtaining informed consent, the endoscope was passed under direct vision. Throughout the procedure, the patient's blood pressure, pulse, and oxygen saturations were monitored continuously. The gastroscope was introduced through the mouth, and advanced to the second part of duodenum. The upper GI endoscopy was accomplished without difficulty. The patient tolerated the procedure well. Scope In: 10:36:34 AM Scope Out: 10:39:58 AM Total Procedure Duration Time 0 hours 3 minutes 24 seconds Findings: The examined esophagus was normal. The entire examined stomach was normal. Biopsies were taken with a cold forceps for Helicobacter pylori testing. The examined duodenum was normal. The nasopharynx and oropharynx are abnormal. Impression: - Normal esophagus. - Normal stomach. Biopsied. - Normal examined duodenum. - The nasopharynx and oropharynx are abnormal. A significant amount of blood in irregularity was seen in the larynx would recommend ENT consultation. Recommendation: - Await pathology results. - Repeat upper endoscopy (date not yet determined) for surveillance. - Return to primary care physician (date not yet determined). - Continue present medications. Procedure Code(s): --- Professional --- 84063, Esophagogastroduodenoscopy, flexible, transoral; with biopsy, single or multiple Diagnosis Code(s): --- Professional --- J39.2, Other diseases of pharynx K92.0, Hematemesis K92.1, Melena (includes Hematochezia) CPT copyright 2017 [employer]. All rights reserved. The codes documented in this report are preliminary and upon interrelated special education teacher review may be revised to meet current compliance requirements. MD Seth Byrd MD 11/23/2019 10:43:53 AM This report has been signed electronically. Number of Addenda: 0 Note Initiated On: 11/23/2019 10:24 AM
--- NOTE | 2019-11-23 10:44 | OP.CCLET_ITS ---
11/23/2019 Davon Lemus [address] [place] [address] Re : Upper GI endoscopy procedure for Mt Gardner Dear Dr. Lemus This procedure was performed on Saturday, November 23, 2019. My impressions and recommendations are as follows: Impressions : - Normal esophagus. - Normal stomach. Biopsied. - Normal examined duodenum. - The nasopharynx and oropharynx are abnormal. A significant amount of blood in irregularity was seen in the larynx would recommend ENT consultation. Recommendations : - Await pathology results. - Repeat upper endoscopy (date not yet determined) for surveillance. - Return to primary care physician (date not yet determined). - Continue present medications. My findings are described in the full procedure note, which is enclosed. If I can be of further assistance, please feel free to contact me at Doctor phone number(s): , Fax: [phone], Work: . Sincerely, MD Seth Byrd MD 11/23/2019 10:43:53 AM This report has been signed electronically.
--- NOTE | 2019-11-23 11:41 | PN_ITS ---
Subjective: Patient seen and examined. He felt better today and had no complaints. He is due to have EGD today. Sodium is up to 148 and creatinine is up to 3.43 today. Hemoglobin today is 8.5 and WBC is 8.2. Platelets are 201. Vitals/I&O's: Vital Signs Temp Pulse Resp BP Pulse Ox 98.5 F 70 16 113/51 L 98 11/23/19 11:07 11/23/19 11:07 11/23/19 11:07 11/23/19 11:07 11/23/19 11:07 Oxygen Flow Rate (L/min) 2 Oxygen Delivery Method Room Air Weight: 244 lb 4.355 oz Body Mass Index (BMI) 36.1 Finger Stick Blood Glucose 269 Intake and Output for Last 24 Hours 11/21/19 11/22/19 11/23/19 23:59 23:59 23:59 Intake Total 1852 / 1852 1694.00 / 1694.00 130 / 130 Output Total 2750 / 2750 2550 / 2550 2325 / 2325 Balance -898 / -898 -856.00 / -856.00 -2195 / -2195 General: Alert, Oriented x3, Cooperative, No apparent distress HEENT: Atraumatic, PERRLA, EOMI, Normocephalic Oral: Dry Mucosa Neck: Supple, No JVD, Negative Carotid Bruits Lungs: Clear to auscultation, Normal air movement, No rhonchi, No wheeze, No rales; on room air Cardiovascular: Regular rate, No murmurs Abdomen: Bowel Sounds Present, Soft, Non Tender Extremities: No clubbing, No cyanosis, No edema, Capillary Refill Less than 3 Seconds Skin: No rashes, No breakdown Musculoskeletal: No Tenderness to Palpation of Joints or Extremities Lymphatic: No Cervical, Supraclavicular, or Inguinal Adenopathy Neurological: Cranial nerves II-XII grossly intact, Neuro grossly intact, Motor Exam 5/5 strength throughout Psych/Mental Status: Normal Affect, Appropriate, Alert and oriented to time, place, person, mood and affect Laboratory Results 11/22/19 11:32: POC Glucose 219 H 11/22/19 16:58: POC Glucose 187 H 11/22/19 23:07: POC Glucose 143 H 11/23/19 05:00: WBC 8.2, RBC 3.13 L, Hgb 8.5 L, Hct 28.4 L, MCV 90.7, MCH 27.2, MCHC 29.9 L, RDW Std Deviation 57.2 H, RDW Coeff of Judi 17.5 H, Plt Count 201, MPV 9.2, Immature Gran % (Auto) 1.000 H, Neut % (Auto) 79.1 H, Lymph % (Auto) 9.1 L, [place] % (Auto) 6.1, Eos % (Auto) 4.6, Baso % (Auto) 0.1, Absolute Neuts (auto) 6.5, Absolute Lymphs (auto) 0.75 L, Nucleated RBC % 0 11/23/19 05:00: Sodium 148 H, Potassium 4.5, Chloride 119 H, Carbon Dioxide 22.0, Anion Gap 7, BUN 102 H*, Creatinine 3.43 H, Estim Creat Clear Calc 20.61, Est GFR (MDRD) Af Amer 23 L, Est GFR (MDRD) Non-Af 19 L, BUN/Creatinine Ratio 29.7 H, Glucose 200 H, Calcium 8.3 L 11/23/19 05:00: PT 15.2 H, INR 1.3, APTT 31.2 11/23/19 05:00: Hemoglobin A1c 6.2 H 11/23/19 06:31: POC Glucose 184 H Diagnostic Data Chest X-Ray 11/17/19 10:56 IMPRESSION: Hazy airspace disease/vascular congestion (likely early fluid overload) Cardiomegaly cardiac surgery Electronically Signed: Brice Conner DO at 11:14 EDT Tel , Service support , GI Bleed Scan Nuclear Medicine 11/19/19 10:56 IMPRESSION: 1. ABNORMAL 99m Tc ULTRATAG LABELED BLOOD POOL GASTROINTESTINAL BLEEDING EXAMINATION. 2. Facilitated uptake defined in the right midline abdominal mesentery with apparent antegrade progression to the left mid abdomen is most consistent with an active gastrointestinal hemorrhage with potential origin in the mid transverse colon with progression to the descending colon. Electronically Signed: Yves Melo DO at 14:18 EDT Tel , Service support , ADDENDUM: 11/19/19 1443 IMPRESSION: 1. ABNORMAL 99m Tc ULTRATAG LABELED BLOOD POOL GASTROINTESTINAL BLEEDING EXAMINATION. 2. Facilitated uptake defined in the right midline abdominal mesentery with apparent antegrade progression to the left mid abdomen is most consistent with an active gastrointestinal hemorrhage with potential origin in the mid transverse colon with progression to the descending colon. N.B. : The above information has been verbally conveyed by Yves Melo DO to Dr. Makenzie Lerma MD, on 11/19/2019 14:36:57 (ET). Electronically Signed: Yves Melo DO at 14:18 EDT Tel , Service support , Renal Ultrasound 11/19/19 14:05 IMPRESSION: 1. Bilateral enlarged kidneys. There is mild increase in renal parenchymal echogenicity suggesting medical renal disease. 2. Bilateral renal cysts. There is a septation in the larger cyst in the left kidney. This suggests a Bochdalek 2 classification. 3. Poorly distended but otherwise unremarkable urinary bladder. Electronically Signed: Luis E Fishman DO at 20:10 EDT Tel [phone], Service support , Current Medications Acetaminophen (Tylenol) 650 mg PO Q6H PRN PRN PRN Reason: Pain Score 1-10/Temp > 100.7 F Albuterol/Ipratropium (Duoneb) 3 ml INHALATION Q4HWA.RT [facility] Last Admin: 11/23/19 10:35 Dose: Not Given Documented by: Allopurinol (Zyloprim) 100 mg PO DAILYCM [facility] Last Admin: 11/22/19 08:28 Dose: 100 mg Documented by: Amlodipine Besylate (Norvasc) 5 mg PO BID [facility] Last Admin: 11/22/19 23:10 Dose: 5 mg Documented by: Aspirin (Ecotrin) 81 mg PO DAILY@0800 [facility] Last Admin: 11/21/19 09:46 Dose: 81 mg Documented by: Dextrose (D50w Syringe) 0 gm IV X1 PRN; Protocol PRN Reason: Hypoglycemia Ferrous Sulfate (Ferrous Sulfate) 325 mg PO BIDCM [facility] Last Admin: 11/22/19 17:00 Dose: 325 mg Documented by: Fluoxetine HCl (Prozac) 40 mg PO DAILY [facility] Last Admin: 11/22/19 10:24 Dose: 40 mg Documented by: Furosemide (Lasix) 60 mg PO BID@1000,1800 [facility] Last Admin: 11/22/19 17:04 Dose: 60 mg Documented by: Glucagon () 1 mg IM .X1 PRN PRN Reason: Hypoglycemia Sodium Chloride () 250 mls @ 15 mls/hr IV .[id number] PRN PRN Reason: Saline Flush Last Admin: 11/23/19 10:00 Dose: 15 mls/hr Documented by: Sodium Chloride () 250 mls @ 15 mls/hr IV .[id number] PRN PRN Reason: Additional IVPB Infusion Pantoprazole Sodium 40 mg/ (Sodium Chloride) 110 mls @ 330 mls/hr IV Q12 [facility] Last Infusion: 11/22/19 23:28 Dose: Infused Documented by: Insulin Human Lispro (Humalog Kwikpen (Bkc)) 0 unit SC ACHS [facility]; Protocol Last Admin: 11/23/19 04:59 Dose: Not Given Documented by: Isosorbide Mononitrate (Imdur) 30 mg PO DAILY [facility] Last Admin: 11/22/19 10:24 Dose: 30 mg Documented by: Metoprolol Tartrate (Lopressor (Beta Ayde)) 50 mg PO BID [facility] Last Admin: 11/22/19 23:10 Dose: 50 mg Documented by: Nitroglycerin (Nitrostat) 0.4 mg SUBLINGUAL Q5M PRN PRN Reason: CHEST Ondansetron HCl (Zofran) 4 mg IV Q8H PRN PRN PRN Reason: NAUSEA/VOMITING Sodium Chloride () 10 - 40 ml IV UD PRN PRN Reason: SALINE FLUSH Last Admin: 11/23/19 06:39 Dose: 10 ml Documented by: STROKE Vital Signs/Narrative: Vital Signs Temp Pulse Resp BP Pulse Ox 11/23/19 11:07 98.5 F 70 16 113/51 L 98 11/23/19 11:05 71 16 116/58 L 98 11/23/19 11:00 70 16 119/55 L 98 11/23/19 10:56 72 16 108/51 L 98 11/23/19 10:54 69 16 126/60 H 98 11/23/19 10:50 98.1 F 72 16 107/51 L 99 11/23/19 08:07 97.5 F L 70 17 126/59 H 96 11/23/19 08:05 96 Medical Necessity - Tobacco Use Smoking Status: Former smoker Tobacco Use: Non-smoker Assessment/Plan All Active Problems (Last Reviewed 11/11/19 @ 08:[address] Seth Michael MD) Upper GI bleed (Acute) Anemia (Acute) Dyspnea on exertion (Acute) #Acute hypoxic respiratory failure * due to acute exacerbation of heart failure * on room air. * on breathing treatments with duonebs * * # Acute on chronic HFpEF * likely worsened by progressively worsening aortic stenosis * now on PO lasix 60mg bid. * in negative balance by 5.49 since admission * patient counseled again about need to stick to fluid restriction daily o/a of heart failure. * # EDGARDO on CKD * Creatinine is up to 3.43 today. * nephrology on board. Recommend continue patient on same dose of diuretics and no WILMER inhibitor or ARB for now. * to follow up with urology on outpatient basis for evaluation of renal cyst * # elevated D dimer * CTA of the chest not done on account of EDGARDO on CKD. Therapeutic Lovenox also discontinued due to suspicion for GI bleed. * Low threshold of suspicion for PE now * pulmonology on board * #Hypernatremia: sodium is 148. Likely due to IV lasix being stopped. on PO lasix now. WIll give IV D5W to bring down sodium # Acute on chronic anemia du to GI bleed * Hb today is 8.5. s/p transfusion of one unit of PRBC * he had colonoscopy with findings of polyps, which wre removed] * EGD shows: normal esophagus, normal stomach which were biopsied, and abnormal nasopharynx and oropharnyx with significant amount of blood in the irregularity in the larynx. * will consult ENT due to abnormal findings in oropharynx and larynx * on IV pantoprazole * had a bleeding scan on 11/19/19 which was positive for bleeding in the mid transverse colon # Type 2 diabetes mellitus * with nephropathy * ISS. Accuchecks ACHS * # DASHA: on BIPAP # CAD s/p CABG * also s/p stents. on aspirin, metoprolol and imdur. aspirin on hold due to anemia and GI bleed. * # Hypertension: on amlodipine. DVT prophylaxis: SCDs Inpatient E&M: [id number] [facility] Hosp L3
[2019-11-23] MEDS: Ferrous Sulfate 325 MG Tablet PO ×2 (11:50→16:44)
[2019-11-23] MEDS: Allopurinol 100 MG Tablet PO (11:51)
[2019-11-23] MEDS: Isosorbide Mononitrate 30 MG Tablet PO (11:51)
[2019-11-23] MEDS: Furosemide 20 MG Tablet 60 MG PO ×2 (11:51→18:23)
[2019-11-23] MEDS: Metoprolol Tartrate 50 MG Tablet PO ×2 (11:52→21:46)
[2019-11-23] MEDS: amLODIPine 5 MG Tablet PO ×2 (11:52→21:46)
[2019-11-23] MEDS: FLUoxetine 20 MG Capsule 40 MG PO (11:52)
--- NOTE | 2019-11-23 12:00 | IMM_PTH ---
PATIENT: KYLE WOMACK LOC: [facility] U#:[id number] AGE/SX: 69/M ROOM: [facility] RE11/17/[address]: Dr. Suellen Magallanes MD : 1950 BED: 1 DIS: 11/25/2019 SPEC #: [id number] RECD: 11/23/19 13:11 STATUS: SOUNarda REQ #: [id number] ARISTIDES: 11/23/19 12:[address]: Seth Michael DEPT: IMMUNOHISTOCHEMISTRY RECD BY: Va Salgado ENTERED: 11/23/19 13:12 SP TYPE: IMMUNO OTHR DR: MD Dr. Shlomo Mckenzie DO Dr. Jayaprakas Dasari, MD Dr. Nana Yaa Koram, MD Dr. Nagapradee Nagajothi, MD Dr. Paul Moodispaw, MD Dr. Victor Velasquez, MD Tissues: Stomach, NOS Procedures: H Pylori (initial) PHYSICIAN & [place] [phone] SPECIMEN INFORMATION: Tissue Source: Antrum biopsy Clinical Info: Positive bleeding scan Specimen Number: [id number] CPT code: 03948 METHODOLOGY: Deparaffinized sections of prefer/formalin-fixed tissue or PAP/DQ stained slides are incubated with monoclonal/polyclonal antibodies/oligonucleotide probes. Localization is made via biotin free immunoperoxidase method. Appropriate controls are performed and reacted as expected. Results on target cell population are indicated in the following table: RESULTS: ANTIBODY / CLONE RESULT H Pylori (polyclonal) negative These tests were developed and their performance characteristics determined by [facility]. They may not have been cleared or approved by the U.S. Food and Drug Administration. The FDA has determined that such clearance or approval is not necessary. INTERPRETATION: Antrum biopsy: Negative for Helicobacter pylori organisms. BLAS:stefanie 11/24/19
--- NOTE | 2019-11-23 12:00 | COLBX_PTH ---
PATIENT: KYLE WOMACK LOC: [facility] U#:[id number] AGE/SX: 69/M ROOM: [facility] RE11/17/[address]: Dr. Suellen Magallanes MD : 1950 BED: 1 DIS: 11/25/2019 SPEC #: [id number] RECD: 11/23/19 12:24 STATUS: GIULIANO REHomer #: [id number] ARISTIDES: 11/23/19 12:[address]: Seth Michael DEPT: SURGICAL PATHOLOGY RECD BY: John Shah ENTERED: 11/23/19 12:57 SP TYPE: COLON BX OTHR DR: MD Dr. Shlomo Mckenzie DO Dr. Jayaprakas Dasari, MD Dr. Nana Yaa Koram, MD Dr. Nagapradee Nagajothi, MD Dr. Paul Moodispaw, MD Dr. Victor Velasquez, MD Tissues: Gastric mucous membrane Procedures: Surgery Specimen Level IV HEADER OPERATION: Colonoscopy (MAC) PRE-OP DIAGNOSIS: Positive bleeding scan TISSUE SUBMITTED: Antrum biopsy for histo and H. pylori MICROSCOPIC DIAGNOSIS Antrum biopsy: Minimal gastritis. See microscopic description and comment. BLAS:stefanie 11/24/19 COMMENT The results of immunohistochemistry for Helicobacter pylori will be reported separately ([id number]). MICROSCOPIC DESCRIPTION Slides are reviewed. The specimen shows fragments of gastric mucosa with chronic inflammatory cell infiltrates in the lamina propria consisting of lymphocytes and plasma cells, consistent with minimal chronic gastritis. GROSS DESCRIPTION Received in fixative is one container labeled with the patient's name and designated antrum biopsy. The specimen consists of one irregular fragment of light wright soft tissue that measures 0.5 x 0.2 x 0.1 cm. The specimen is totally submitted in one cassette. / BLAS:stefanie 11/23/19 TC:3 CPT: 46353
[2019-11-23 12:05] LABS: Bedside Glucose 227 mg/dL (70-110)
[2019-11-23] MEDS: Insulin Lispro 100 UNIT/ML INSULN.PEN SC ×2 (12:20→16:25)
--- NOTE | 2019-11-23 13:33 | NURSING ---
Patient reports small amount of bright red blood on kleenex from his left nostril when he blew his nose earlier. No epistaxis noted currently. Sitting up in bed. No distress noted.
[2019-11-23 16:36] LABS: Bedside Glucose 287 mg/dL (70-110)
[2019-11-23 21:35] LABS: Bedside Glucose 107 mg/dL (70-110)
[2019-11-24] VITALS (16 sets, daily range): BP systolic 110–136; BP diastolic 59–67; PULSE 62–98; RESP 16–18; TEMP 36.4–36.8; O2SAT 90–97
--- NOTE | 2019-11-24 00:18 | NURSING ---
Patients called and very upset that patient is not receiving Lantus BID.
[2019-11-24 05:54] LABS: Anion Gap 7 (5-15); BUN 94 mg/dL (7-18); BUN/Creat Ratio 29.8 RATIO (10-20); Calcium,Total 8.1 mg/dL (8.5-10.1); Chloride 116 mmol/L (98-107); Creatinine, Serum 3.15 mg/dL (0.70-1.30); EST Glomerular Filtration Rate 21 mL/min (>60); Est Glom Filt Rate - Afr Amer 25 mL/min (>60); Estimated Creatinine Clearance 22.44 ml/min; Glucose 183 mg/dL (74-106); Potassium 4.7 mmol/L (3.5-5.1); Sodium Level 146 mmol/L (136-145)
[2019-11-24] MEDS: Insulin Lispro 100 UNIT/ML INSULN.PEN SC ×4 (06:42→21:40)
[2019-11-24] MEDS: Ipratropium/Albuterol Sulfate 3 ML AMPUL.NEB INHALATION ×4 (07:06→19:20)
[2019-11-24] MEDS: Allopurinol 100 MG Tablet PO (07:24)
[2019-11-24] MEDS: Ferrous Sulfate 325 MG Tablet PO ×2 (07:24→16:56)
[2019-11-24 09:10] LABS: Bedside Glucose 189 mg/dL (70-110)
--- NOTE | 2019-11-24 09:28 | PCM.PN.BLA ---
Progress Note Asked to see the patient at the request of Dr. Magallanes for epistaxis and blood in the larynx (seen on EGD). The patient is a 69-year-old male, with a history as outlined below, who presented to the emergency department on November 16 with complaints of progressive shortness of breath over several months duration. He was placed on oxygen and diuretics. A bleeding scan was performed which showed a GI bleed. He subsequently underwent colonoscopy and EGD. EGD revealed blood in the larynx. He states he has been blowing blood from his nose occasionally for the past several weeks. He has blown blood into the kleenex for the past two days in the hospital. He denies any voice changes, odynophagia or otalgia. Past Medical History Past Medical History (Chronic Problems): Chronic Problems (Last Reviewed 11/11/19 @ 08:[address] Seth Michael MD) Chronic kidney disease (Chronic) Kidney disease, chronic, stage IV (GFR 15-29 ml/min) (Chronic) COPD (chronic obstructive pulmonary disease) (Chronic) Sleep apnea (Chronic) Nephrotic range proteinuria (Chronic) Pure hypercholesterolemia (Chronic) Type 2 diabetes mellitus (Chronic) Presence of stent in coronary artery (Chronic ~08/25/14) 07/18/10, PTCA/stent to mid to distal LCx artery; 08/17/10 PTCA/stent to proximal to mid RCA; PTCA of distal RCA with DEX September 2010; PTCA with EULALIO to mid distal AV groove left CFX 08/13 Essential hypertension (Chronic) Nonrheumatic aortic (valve) stenosis (Chronic) Nonspecific abnormal unspecified cardiovascular function study (Chronic) Diastolic dysfunction (Chronic) Other correction (current) drug therapy (Chronic) Atherosclerotic heart disease of nondalton coronary artery without angina pectoris (Chronic) S/P multivessel PTCA/stent and subsequent CABG with SVG to LCx, RCA and diagonal branch with subsequent SVG graft closure to the LCx and diagonal branch; S/P CABG x 3 (Chronic ~07/21/12) CABG-SVG to diagonal, SVG to obtuse marginal & SVG to PDA 07/12; GERD (gastroesophageal reflux disease) (Chronic) Anxiety (Chronic) Medical History: Medical History (Last Reviewed 11/11/19 @ 08:[address] Seth Michael MD) COPD (chronic obstructive pulmonary disease) (Chronic) J44.9 Sleep apnea (Chronic) G47.30 Pure hypercholesterolemia (Chronic) E78.00 Type 2 diabetes mellitus (Chronic) E11.9 Presence of stent in coronary artery (Chronic) Onset Date: ~08/25/14 Z95.5 07/18/10, PTCA/stent to mid to distal LCx artery; 08/17/10 PTCA/stent to proximal to mid RCA; PTCA of distal RCA with DEX September 2010; PTCA with EULALIO to mid distal AV groove left CFX 08/13 Essential hypertension (Chronic) I10 Nonrheumatic aortic (valve) stenosis (Chronic) I35.0 Diastolic dysfunction (Chronic) I51.9 Atherosclerotic heart disease of nondalton coronary artery without angina pectoris (Chronic) I25.10 S/P multivessel PTCA/stent and subsequent CABG with SVG to LCx, RCA and diagonal branch with subsequent SVG graft closure to the LCx and diagonal branch; Aortic valve disease (Inactive) I35.9 Coronary atherosclerosis of nondalton coronary artery (Inactive) I25.10 Diabetes mellitus (Inactive) E11.9 HTN (hypertension) (Inactive) I10 Allergies carvedilol [From Coreg] Allergy (Severe, Verified 11/17/19 10:01) vomiting valsartan [From Diovan] Allergy (Severe, Verified 11/17/19 14:07) Possible angioedema, throat swelling sertraline HCl [From Zoloft] Allergy (Verified 11/17/19 13:56) Unknown makes me mean bupropion HCl [From Wellbutrin] Adverse Reaction (Verified 11/17/19 10:01) gets mean citalopram Adverse Reaction (Verified 11/17/19 10:01) Other gabapentin Adverse Reaction (Verified 11/17/19 10:01) Other Home Medications: Ambulatory Orders Medication Instructions Recorded Nitroglycerin (INPATIENT USE) 0.4 mg SUBLINGUAL Q5M PRN 10/27/13 [Nitrostat] berberine-herbal comb no.18 2 cap PO BID cap 02/24/18 Allopurinol 100 mg PO DAILY 02/25/19 Aspirin E.C. [Ecotrin] 81 mg PO DAILY@0800 02/25/19 Astaxanthin 4 mg PO DAILY 02/25/19 Fluoxetine HCl 40 mg PO DAILY 02/25/19 Insulin Aspart [Novolog Flexpen] 36 units SUBCUT TIDCM 02/25/19 isosorbide mononitrate 30 mg 30 mg PO DAILY #90 tab 05/04/19 tablet,extended release 24 hr amlodipine 5 mg tablet 5 mg PO BID #180 tab 05/25/19 Furosemide [Lasix] 80 mg PO BID 11/10/19 Insulin Glargine [Lantus SoloStar 40 units SUBCUT BID 11/10/19 Pen] Metoprolol Tartrate [Lopressor 50 mg PO BID 11/10/19 (beta yana)] Ubidecarenone [Co Q-10] 400 mg PO BID 11/10/19 Ferrous Sulfate 325 mg PO BIDCM #60 tab 11/11/19 Pantoprazole Sodium [Protonix] 40 mg PO DAILY #30 tab 11/11/19 Surgical History: Surgical History (Last Reviewed 11/11/19 @ 08:[address] Seth Michael MD) S/P CABG x 3 (Chronic) Onset Date: ~07/21/12 Z95.1 CABG-SVG to diagonal, SVG to obtuse marginal & SVG to PDA 07/12; History of bilateral knee replacement Z96.653 History of carpal tunnel repair Z98.890 History of cholecystectomy Z90.49 History of partial colectomy Z90.49 History of repair of rotator cuff Z98.890 Presence of coronary angioplasty implant and graft Z95.5 07/18/10, PTCA/stent to mid to distal LCx artery; 08/17/10 PTCA/stent to proximal to mid RCA; PTCA of distal RCA with DEX September 2010; PTCA with EULALIO to mid distal AV groove left CFX 08/13 S/P PTCA (percutaneous transluminal coronary angioplasty) (Inactive) Z98.61 07/18/10, PTCA/stent to mid to distal LCx artery; 08/17/10 PTCA/stent to proximal to mid RCA; PTCA of distal RCA with DEX September 2010; PTCA with EULALIO to mid distal AV groove left CFX 08/13 Surgical History: angioplasty, arthroscopy, knee, coronary bypass surgery, - - Patient status post CABG x3, serial PCI, bilateral total knee replacement, rotator cuff repair, partial colectomy, cholecystectomy, carpal tunnel surgery. Psychiatric History: No pertinent psych hx Smoking Status: Former smoker Tobacco Use: Non-smoker Alcohol: None Drugs: None - *Family History Maternal Family History: Family History (Last Reviewed 11/10/19 @ 18:[address] Iman Patrick MD) Father CAD (coronary artery disease) Afib Aortic valve replaced Mother Cancer Son Lupus History Items: Cancer Paternal Family History: Family History (Last Reviewed 11/10/19 @ 18:[address] Iman Patrick MD) Father CAD (coronary artery disease) Afib Aortic valve replaced Mother Cancer Son Lupus History Items: High Cholesterol, Heart Disease - Atrial fibrillation; valvular heart disease status post aVR; , Hypertension Review of Systems Constitutional: Denies: Chills, Fever, Weight Change Eyes: Denies: Blurred vision, Double vision HEENT: Denies: Head Aches, Sinus Congestion, Sinus Drainage Cardiovascular: Denies: Chest Pain, Palpitations Respiratory: Reports: Shortness of Breath Gastrointestinal: Denies: Abdominal Pain, Nausea, Vomiting Genitourinary: Denies: Dysuria Skin: Denies: Rash, Wounds Neurological: Denies: Numbness, Tingling, Focal weakness Psychiatric: Denies: Anxiety, Depression, Homicidal Ideations, Suicidal Ideations Hematologic/ Lymphatic: Reports: Anemia Objective: The patient's most recent lab work, culture data and imaging studies have all been personally reviewed. - Physical Exam awake alert nad Nose-deviated septum to the left. No active bleeding M/OP-crowded oropharynx with large, dry tongue. No ulcerations or mass Neck supple no adenopathy Flexible laryngoscopy- 4% topical lidocaine was sprayed into the nasal cavity bilaterally. The septum is deviated to the left. There is dried blood in the left nasal chamber and on the left septum consistent with nasal canula usage. The nasal mucosa is very dry. There is no active bleeding, mass or polyp. Nasopharynx, base of tongue, vallecula, epiglottis are normal. The pyriforms sinuses are normal. The false and true cords are normal with normal vocal cord mobility. He tolerated this well. A: Intermittent Epistaxis secondary to dryness (lasix contributing), nasal canula usage and deviated nasal septum. I doubt that the epistaxis has been severe enough to cause his anemia given the absence of a massive epistaxis requiring medical attention. P: I have recommended nasal saline TID for the next six weeks. Hold anti coagulants as long as medically possible. Follow up in six weeks. STROKE Vital Signs/Narrative: Vital Signs Pulse Resp Pulse Ox 11/24/19 07:06 98 16 90 11/24/19 06:44 66
[2019-11-24] MEDS: 0.9% Saline Lock 10 ML Syringe IV (09:39)
[2019-11-24] MEDS: amLODIPine 5 MG Tablet PO ×2 (09:40→21:40)
[2019-11-24] MEDS: Metoprolol Tartrate 50 MG Tablet PO ×2 (09:40→21:40)
[2019-11-24] MEDS: FLUoxetine 20 MG Capsule 40 MG PO (09:40)
[2019-11-24] MEDS: Isosorbide Mononitrate 30 MG Tablet PO (09:41)
[2019-11-24] MEDS: Furosemide 20 MG Tablet 60 MG PO ×2 (09:41→16:56)
[2019-11-24 10:56] LABS: Absolute Lymphocyte Count 0.69 X10^3/uL (0.83-4.51); Basophil# 0.02 X10^3/uL; Basophil% 0.2 % (0-1); Eosinophil# 0.46 X10^3/uL; Eosinophils% 5.3 % (0-5); Hemoglobin 8.1 g/dL (13.0-16.5); Lymphocyte # 0.69 X10^3/ul (4.0); Lymphocyte % 7.9 % (19-41); Mean Corpuscular Hgb 28.2 pg (27.0-32.0); Mean Corpuscular Volume 94.1 fL (80-94); Mean Platelet Vol. 10.5 fl (6.2-12.0); Monocyte# 0.48 X10^3/uL; Monocyte% 5.5 % (0-10); NRBC Flagged by Analyzer 0 % (0-5); Neutrophil # 6.99 X10^3/uL (2.7-7.7); Neutrophil % 80.5 % (47-70); Platelet Count 184 K/mm3 (150-450); RBC Distribution Width CV 17.5 % (11.6-14.6); RBC Distribution Width SD 58.4 fl (35.1-43.9); Red Blood Count 2.87 M/mm3 (4.6-6.2); White Blood Count 8.7 K/mm3 (4.4-11.0)
[2019-11-24 12:16] LABS: Bedside Glucose 234 mg/dL (70-110)
--- NOTE | 2019-11-24 14:45 | PN.RENAL_ITS ---
Subjective: no new complaints - Physical Exam Vitals/I&O's: Vital Signs Temp Pulse Resp BP Pulse Ox 98.0 F 75 16 132/63 H 93 11/24/19 09:35 11/24/19 11:23 11/24/19 11:23 11/24/19 09:35 11/24/19 11:23 Oxygen Flow Rate (L/min) 2 Oxygen Delivery Method Room Air Weight: 110.4 kg Body Mass Index (BMI) 36.1 Finger Stick Blood Glucose 269 Intake and Output for Last 24 Hours 11/22/19 11/23/19 11/24/19 23:59 23:59 23:59 Intake Total 1694.00 / 1694.00 1687.5 / 1687.5 1012.5 / 1012.5 Output Total 2550 / 2550 2875 / 2875 1225 / 1225 Balance -856.00 / -856.00 -1187.5 / -1187.5 -212.5 / -212.5 General: Alert, Oriented x3, Cooperative HEENT: Atraumatic, PERRLA, EOMI, Normocephalic Neck: Supple, No JVD, Negative Carotid Bruits Lungs: Clear to auscultation, Normal air movement Cardiovascular: Regular rate, No murmurs Abdomen: Bowel Sounds Present, Soft, Non Tender Extremities: No edema, Capillary Refill Less than 3 Seconds Skin: No rashes, No breakdown Musculoskeletal: No Tenderness to Palpation of Joints or Extremities Neurological: Cranial nerves II-XII grossly intact Psych/Mental Status: Normal Affect, Appropriate Laboratory Results 11/23/19 16:24: POC Glucose 287 H 11/23/19 21:25: POC Glucose 107 11/24/19 05:14: WBC Cancelled, Corrected WBC Cancelled, RBC Cancelled, Hgb Cancelled, Hct Cancelled, MCV Cancelled, MCH Cancelled, MCHC Cancelled, RDW Std Deviation Cancelled, RDW Coeff of Judi Cancelled, Plt Count Cancelled, MPV Cancelled, Immature Gran % (Auto) Cancelled, Neut % (Auto) Cancelled, Lymph % (Auto) Cancelled, [place] % (Auto) Cancelled, Eos % (Auto) Cancelled, Baso % (Auto) Cancelled, Absolute Neuts (auto) Cancelled, Absolute Lymphs (auto) Cancelled, Total Counted Cancelled, Neutrophils % (Manual) Cancelled, Band Neutrophils % Cancelled, Lymphocytes % (Manual) Cancelled, Monocytes % (Manual) Cancelled, Eosinophils % (Manual) Cancelled, Basophils % (Manual) Cancelled, Metamyelocytes % Cancelled, Myelocytes % Cancelled, Promyelocytes % Cancelled, Blast Cells % Cancelled, Plasma Cell % (Manual) Cancelled, Other Cells % Cancelled, Nucleated RBC % Cancelled, Nucleated RBCs/100 WBC Cancelled, Differential Comment Cancelled, Diff Path Review Cancelled, Hypersegmented Neuts Cancelled, Atypical Lymphocytes Cancelled, Reactive Lymphocytes Cancelled, Smudge Cells Cancelled, Toxic Granulation Cancelled, Toxic Vacuolation Cancelled, Dohle Bodies Cancelled, Sunny Rods Cancelled, Platelet Estimate Cancelled, Plt Morphology Comment Cancelled, RBC Morphology Cancelled, Polychromasia Cancelled, Hypochromasia Cancelled, Poikilocytosis Cancelled, Basophilic Stippling Cancelled, Anisocytosis Cancelled, Microcytosis Cancelled, Macrocytosis Cancelled, Spherocytes Cancelled, Sickle Cells Cancelled, Target Cells Cancelled, Tear Drop Cells Cancelled, Ovalocytes Cancelled, Stomatocytes Cancelled, [place]ira[place] Bodies Cancelled, [place] Cells Cancelled, Bite Cells Cancelled, Crenated Cell Cancelled, Acanthocytes (Spur) Cancelled, Rouleaux Cancelled, Schistocytes Cancelled 11/24/19 05:14: Sodium 146 H, Potassium 4.7, Chloride 116 H, Carbon Dioxide 23.0, Anion Gap 7, BUN 94 H, Creatinine 3.15 H, Estim Creat Clear Calc 22.44, Est GFR (MDRD) Af Amer 25 L, Est GFR (MDRD) Non-Af 21 L, BUN/Creatinine Ratio 29.8 H, Glucose 183 H, Calcium 8.1 L 11/24/19 05:14: WBC 8.7, RBC 2.87 L, Hgb 8.1 L, Hct 27.0 L, MCV 94.1 H, MCH 28.2, MCHC 30.0 L, RDW Std Deviation 58.4 H, RDW Coeff of Judi 17.5 H, Plt Count 184, MPV 10.5, Immature Gran % (Auto) 0.600, Neut % (Auto) 80.5 H, Lymph % (Auto) 7.9 L, [place] % (Auto) 5.5, Eos % (Auto) 5.3 H, Baso % (Auto) 0.2, Absolute Neuts (auto) 7.0, Absolute Lymphs (auto) 0.69 L, Nucleated RBC % 0 11/24/19 06:40: POC Glucose 189 H 11/24/19 12:10: POC Glucose 234 H Current Medications Acetaminophen (Tylenol) 650 mg PO Q6H PRN PRN PRN Reason: Pain Score 1-10/Temp > 100.7 F Albuterol/Ipratropium (Duoneb) 3 ml INHALATION Q4HWA.RT [facility] Last Admin: 11/24/19 11:23 Dose: 3 ml Documented by: [facility] Admin: 11/24/19 07:24 Dose: 100 mg Documented by: Amlodipine Besylate (Norvasc) 5 mg PO BID [facility] Last Admin: 11/24/19 09:40 Dose: 5 mg Documented by: Aspirin (Ecotrin) 81 mg PO DAILY@0800 [facility] Last Admin: 11/21/19 09:46 Dose: 81 mg Documented by: Dextrose (D50w Syringe) 0 gm IV X1 PRN; Protocol PRN Reason: Hypoglycemia Ferrous Sulfate ([facility]errous Sulfate) [facility] Last Admin: 11/24/19 07:24 Dose: 325 mg Documented by: Fluoxetine HCl (Prozac) 40 mg PO DAILY [facility] Last Admin: 11/24/19 09:40 Dose: 40 mg Documented by: Furosemide (Lasix) 60 mg PO BID@1000,1800 [facility] Last Admin: 11/24/19 09:41 Dose: 60 mg Documented by: Glucagon () 1 mg IM .X1 PRN PRN Reason: Hypoglycemia Sodium Chloride () 250 mls @ 15 mls/hr IV .[id number] PRN PRN Reason: Saline Flush Last Infusion: 11/23/19 21:30 Dose: Infused Documented by: Sodium Chloride () 250 mls @ 15 mls/hr IV .[id number] PRN PRN Reason: Additional IVPB Infusion Pantoprazole Sodium 40 mg/ (Sodium Chloride) 110 mls @ 330 mls/hr IV Q12 [facility] Last Infusion: 11/24/19 10:18 Dose: Infused Documented by: Insulin Human Lispro (Humalog Kwikpen (Bkc)) 0 unit SC ACHS [facility]; Protocol Last Admin: 11/24/19 12:12 Dose: 4 units Documented by: Isosorbide Mononitrate (Imdur) 30 mg PO DAILY [facility] Last Admin: 11/24/19 09:41 Dose: 30 mg Documented by: Metoprolol Tartrate (Lopressor (Beta Ayde)) 50 mg PO BID [facility] Last Admin: 11/24/19 09:40 Dose: 50 mg Documented by: Nitroglycerin (Nitrostat) 0.4 mg SUBLINGUAL Q5M PRN PRN Reason: CHEST Ondansetron HCl (Zofran) 4 mg IV Q8H PRN PRN PRN Reason: NAUSEA/VOMITING Sodium Chloride () 10 - 40 ml IV UD PRN PRN Reason: SALINE FLUSH Last Admin: 11/24/19 09:39 Dose: 10 ml Documented by: Sodium Chloride ([place] Nasal [place]) 2 spray NASAL TID PRN PRN PRN Reason: NASAL DRYNESS Medical Necessity - Tobacco Use Smoking Status: Former smoker Tobacco Use: Non-smoker Assessment/Plan All Active Problems (Last Reviewed 11/11/19 @ 08:[address] Seth Michael MD) Upper GI bleed (Acute) Anemia (Acute) Dyspnea on exertion (Acute) EDGARDO possible CRS rule out obstruction CKD 4 baseline serum creatinine 2.4-2.6 Complex renal cyst Lower extremity edema Hypertension CHF on lasix 60 mg BID however cr is at 3.4 now edema is better overall dyspneic with minimal activity which is baseline BUN is disproportionately high likely due to GI bleed now better Hypernatremia. can relax fluid relaxation a little bit continue current lasix PO
--- NOTE | 2019-11-24 16:25 | PN_ITS ---
Subjective: Patient seen and examined. He was unhappy about his diet this morning. He again inquired about how much fluid he could drink. Patient and his stated that they were not comfortable with patient being discharged home because he was still having dark stools and they are concerned that he still bleeding. Review of stems otherwise negative. did state that patient had been blowing his nose bloody results a few times at home. This had not really recurred since admission. ENT consulted and recommendations. He has remained hemodynamically stable. He is now on room air and creatinine is down to 3.15. Sodium is down to 146. hemoglobin today is 8.1. Vitals/I&O's: Vital Signs Temp Pulse Resp BP Pulse Ox 97.5 F L 65 18 134/62 H 94 11/24/19 15:31 11/24/19 15:31 11/24/19 15:31 11/24/19 15:31 11/24/19 15:31 Oxygen Flow Rate (L/min) 2 Oxygen Delivery Method Room Air Weight: 243 lb 6.245 oz Body Mass Index (BMI) 36.1 Finger Stick Blood Glucose 269 Intake and Output for Last 24 Hours 11/22/19 11/23/19 11/24/19 23:59 23:59 23:59 Intake Total 1694.00 / 1694.00 1687.5 / 1687.5 1012.5 / 1012.5 Output Total 2550 / 2550 2875 / 2875 1225 / 1225 Balance -856.00 / -856.00 -1187.5 / -1187.5 -212.5 / -212.5 General: Alert, Oriented x3, Cooperative, No apparent distress HEENT: Atraumatic, PERRLA, EOMI, Normocephalic Oral: Dry Mucosa Neck: Supple, No JVD, Negative Carotid Bruits Lungs: Clear to auscultation, Normal air movement, No rhonchi, No wheeze, No rales; on room air Cardiovascular: Regular rate, No murmurs Abdomen: Bowel Sounds Present, Soft, Non Tender Extremities: No clubbing, No cyanosis, No edema, Capillary Refill Less than 3 Seconds Skin: No rashes, No breakdown Musculoskeletal: No Tenderness to Palpation of Joints or Extremities Lymphatic: No Cervical, Supraclavicular, or Inguinal Adenopathy Neurological: Cranial nerves II-XII grossly intact, Neuro grossly intact, Motor Exam 5/5 strength throughout Psych/Mental Status: Normal Affect, Appropriate, Alert and oriented to time, place, person, mood and affect Laboratory Results 11/23/19 16:24: POC Glucose 287 H 11/23/19 21:25: POC Glucose 107 11/24/19 05:14: WBC Cancelled, Corrected WBC Cancelled, RBC Cancelled, Hgb Cancelled, Hct Cancelled, MCV Cancelled, MCH Cancelled, MCHC Cancelled, RDW Std Deviation Cancelled, RDW Coeff of Judi Cancelled, Plt Count Cancelled, MPV Cancelled, Immature Gran % (Auto) Cancelled, Neut % (Auto) Cancelled, Lymph % (Auto) Cancelled, [place] % (Auto) Cancelled, Eos % (Auto) Cancelled, Baso % (Auto) Cancelled, Absolute Neuts (auto) Cancelled, Absolute Lymphs (auto) Cancelled, Total Counted Cancelled, Neutrophils % (Manual) Cancelled, Band Neutrophils % Cancelled, Lymphocytes % (Manual) Cancelled, Monocytes % (Manual) Cancelled, Eosinophils % (Manual) Cancelled, Basophils % (Manual) Cancelled, Metamyelocytes % Cancelled, Myelocytes % Cancelled, Promyelocytes % Cancelled, Blast Cells % Cancelled, Plasma Cell % (Manual) Cancelled, Other Cells % Cancelled, Nucleated RBC % Cancelled, Nucleated RBCs/100 WBC Cancelled, Differential Comment Cancelled, Diff Path Review Cancelled, Hypersegmented Neuts Cancelled, Atypical Lymphocytes Cancelled, Reactive Lymphocytes Cancelled, Smudge Cells Cancelled, Toxic Granulation Cancelled, Toxic Vacuolation Cancelled, Dohle Bodies Cancelled, Sunny Rods Cancelled, Platelet Estimate Cancelled, Plt Morphology Comment Cancelled, RBC Morphology Cancelled, Polychromasia Cancelled, Hypochromasia Cancelled, Poikilocytosis Cancelled, Basophilic Stippling Cancelled, Anisocytosis Cancelled, Microcytosis Cancelled, Macrocytosis Cancelled, Spherocytes Cancelled, Sickle Cells Cancelled, Target Cells Ca ncelled, Tear Drop Cells Cancelled, Ovalocytes Cancelled, Stomatocytes Cancelled, [place] Bodies Cancelled, [place] Cells Cancelled, Bite Cells Cancelled, Crenated Cell Cancelled, Acanthocytes (Spur) Cancelled, Rouleaux Cancelled, Schistocytes Cancelled 11/24/19 05:14: Sodium 146 H, Potassium 4.7, Chloride 116 H, Carbon Dioxide 23.0, Anion Gap 7, BUN 94 H, Creatinine 3.15 H, Estim Creat Clear Calc 22.44, Est GFR (MDRD) Af Amer 25 L, Est GFR (MDRD) Non-Af 21 L, BUN/Creatinine Ratio 29.8 H, Glucose 183 H, Calcium 8.1 L 11/24/19 05:14: WBC 8.7, RBC 2.87 L, Hgb 8.1 L, Hct 27.0 L, MCV 94.1 H, MCH 28.2, MCHC 30.0 L, RDW Std Deviation 58.4 H, RDW Coeff of Judi 17.5 H, Plt Count 184, MPV 10.5, Immature Gran % (Auto) 0.600, Neut % (Auto) 80.5 H, Lymph % (Auto) 7.9 L, [place] % (Auto) 5.5, Eos % (Auto) 5.3 H, Baso % (Auto) 0.2, Absolute Neuts (auto) 7.0, Absolute Lymphs (auto) 0.69 L, Nucleated RBC % 0 11/24/19 06:40: POC Glucose 189 H 11/24/19 12:10: POC Glucose 234 H Current Medications Acetaminophen (Tylenol) 650 mg PO Q6H PRN PRN PRN Reason: Pain Score 1-10/Temp > 100.7 F Albuterol/Ipratropium (Duoneb) 3 ml INHALATION Q4HWA.RT [facility] Last Admin: 11/24/19 15:28 Dose: 3 ml Documented by: [facility]) [facility] Admin: 11/24/19 07:24 Dose: 100 mg Documented by: Amlodipine Besylate (Norvasc) 5 mg PO BID [facility] Last Admin: 11/24/19 09:40 Dose: 5 mg Documented by: Aspirin (Ecotrin) 81 mg PO DAILY@0800 [facility] Last Admin: 11/21/19 09:46 Dose: 81 mg Documented by: Dextrose (D50w Syringe) 0 gm IV X1 PRN; Protocol PRN Reason: Hypoglycemia Ferrous Sulfate ([facility]ous Sulfate) [facility] Last Admin: 11/24/19 07:24 Dose: 325 mg Documented by: Fluoxetine HCl (Prozac) 40 mg PO DAILY [facility] Last Admin: 11/24/19 09:40 Dose: 40 mg Documented by: Furosemide (Lasix) 60 mg PO BID@1000,1800 [facility] Last Admin: 11/24/19 09:41 Dose: 60 mg Documented by: Glucagon () 1 mg IM .X1 PRN PRN Reason: Hypoglycemia Sodium Chloride () 250 mls @ 15 mls/hr IV .[id number] PRN PRN Reason: Saline Flush Last Infusion: 11/23/19 21:30 Dose: Infused Documented by: Sodium Chloride () 250 mls @ 15 mls/hr IV .[id number] PRN PRN Reason: Additional IVPB Infusion Pantoprazole Sodium 40 mg/ (Sodium Chloride) 110 mls @ 330 mls/hr IV Q12 [facility] Last Infusion: 11/24/19 10:18 Dose: Infused Documented by: Insulin Human Lispro (Humalog Kwikpen (Bkc)) 0 unit SC ACHS [facility]; Protocol Last Admin: 11/24/19 12:12 Dose: 4 units Documented by: Isosorbide Mononitrate (Imdur) 30 mg PO DAILY [facility] Last Admin: 11/24/19 09:41 Dose: 30 mg Documented by: Metoprolol Tartrate (Lopressor (Beta Ayde)) 50 mg PO BID [facility] Last Admin: 11/24/19 09:40 Dose: 50 mg Documented by: Nitroglycerin (Nitrostat) 0.4 mg SUBLINGUAL Q5M PRN PRN Reason: CHEST Ondansetron HCl (Zofran) 4 mg IV Q8H PRN PRN PRN Reason: NAUSEA/VOMITING Sodium Chloride () 10 - 40 ml IV UD PRN PRN Reason: SALINE FLUSH Last Admin: 11/24/19 09:39 Dose: 10 ml Documented by: Sodium Chloride ([place] Nasal [place]) 2 spray NASAL TID PRN PRN PRN Reason: NASAL DRYNESS STROKE Vital Signs/Narrative: Vital Signs Temp Pulse Resp BP Pulse Ox 11/24/19 15:31 97.5 F L 65 18 134/62 H 94 11/24/19 15:28 66 16 11/24/19 14:49 65 Medical Necessity - Tobacco Use Smoking Status: Former smoker Tobacco Use: Non-smoker Assessment/Plan All Active Problems (Last Reviewed 11/11/19 @ 08:[address] Seth Michael MD) Upper GI bleed (Acute) Anemia (Acute) Dyspnea on exertion (Acute) #Acute hypoxic respiratory failure * due to acute exacerbation of heart failure * on room air. * on breathing treatments with duonebs * * # Acute on chronic HFpEF * now on PO lasix 60mg bid. * Stable. * # EDGARDO on CKD * Creatinine is down to 3.15 today * nephrology on board. Recommend continue patient on same dose of diuretics and no WILMER inhibitor or ARB for now. * to follow up with urology on outpatient basis for evaluation of renal cyst * # elevated D dimer * CTA of the chest not done on account of EDGARDO on CKD. Therapeutic Lovenox also discontinued due to suspicion for GI bleed. * Low threshold of suspicion for PE now * pulmonology on board * #Hypernatremia: sodium is 148. Likely due to IV lasix being stopped. on PO lasix now. WIll give IV D5W to bring down sodium # Acute on chronic anemia du to GI bleed * Hb today is 8.1. s/p transfusion of 2 units of PRBC * he had colonoscopy with findings of polyps, which wre removed] * EGD shows: normal esophagus, normal stomach which were biopsied, and abnormal nasopharynx and oropharnyx with significant amount of blood in the irregularity in the larynx. * ENT consulted; he had flexible laryngoscopy today which showed dried blood in the left nasal chamber and on the left septum consistent with nasal cannula usage with no active bleeding, mass or polyp. Nasopharynx, base of tongue and vallecula as well as epiglottis were normal. ENT thinks this is intermittent epistasis due to dryness and recommend nasal saline. * on IV pantoprazole * had a bleeding scan on 11/19/19 which was positive for bleeding in the mid transverse colon * Will repeat bleeding scan tomorrow and if it still shows bleeding, will consider transfer to tertiary center. 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 Accuchecks ACHS * # DASHA: on BIPAP # CAD s/p CABG * also s/p stents. on aspirin, metoprolol and imdur. aspirin on hold due to anemia and GI bleed. * # Hypertension: on amlodipine. DVT prophylaxis: SCDs Inpatient E&M: 33982 Subs Hosp L2
[2019-11-24 17:06] LABS: Bedside Glucose 340 mg/dL (70-110)
[2019-11-24 21:50] LABS: Bedside Glucose 298 mg/dL (70-110)
[2019-11-25] VITALS (9 sets, daily range): BP systolic 135–143; BP diastolic 61–76; PULSE 70–80; RESP 18–19; TEMP 36.6–36.9; O2SAT 86–97
[2019-11-25 05:50] LABS: Absolute Lymphocyte Count 0.74 X10^3/uL (0.83-4.51); Basophil# 0.02 X10^3/uL; Basophil% 0.3 % (0-1); Eosinophil# 0.41 X10^3/uL; Eosinophils% 5.3 % (0-5); Hematocrit 27.6 % (40-54); Hemoglobin 8.1 g/dL (13.0-16.5); Lymphocyte # 0.74 X10^3/ul (4.0); Lymphocyte % 9.5 % (19-41); Mean Corp Hgb Conc 29.3 g/dL (32-36); Mean Platelet Vol. 9.6 fl (6.2-12.0); Monocyte# 0.48 X10^3/uL; Monocyte% 6.2 % (0-10); NRBC Flagged by Analyzer 0 % (0-5); Neutrophil # 6.03 X10^3/uL (2.7-7.7); Neutrophil % 77.4 % (47-70); Platelet Count 199 K/mm3 (150-450); RBC Distribution Width SD 57.2 fl (35.1-43.9); White Blood Count 7.8 K/mm3 (4.4-11.0)
--- NOTE | 2019-11-25 05:55 | NM_ITS ---
CLINICAL: 69-year-old male with reported history of melanotic stools. LABELED BLOOD POOL GASTROINTESTINAL BLEEDING STUDY COMPARISON: Previous labeled blood pool gastrointestinal bleeding study 11/19/2019 FINDINGS: Following the intravenous administration of 25.6 mCi of 99m Tc Ultratag labeled RBCs, image acquisitions of the anterior-abdomen and pelvis for a total of 60 minutes reveal: 1. Review of static sequential 1 minute and cine projections of the anterior abdomen and pelvis demonstrates no evidence of abnormal increased radiopharmaceutical concentration indicative of acute gastrointestinal hemorrhage over the course of 60 minutes of image acquisition. The previously identified focus of increased uptake which appeared to initiate at the level of the transverse colon with progression to the descending colon on the examination dated 11/19/2019 is not apparent on the present study. 2. Physiologic tracer uptake is currently demonstrated in the hepatic, splenic, cardiac and major vascular blood pool. NM/GI Bleed Scan IMPRESSION: 1. NEGATIVE 99m Tc ULTRATAG LABELED BLOOD POOL GASTROINTESTINAL BLEEDING EXAMINATION. 2. There is no current definitive scintigraphic evidence of acute gastrointestinal hemorrhage on the present evaluation. 3. Overall compared to the previous gastrointestinal bleeding study dated 11/19/2019, there is interval resolution of the prior defined presumed transverse colon active bleeding site. Electronically Signed: Yves Melo DO at 10:26 EDT Tel , Service support ,
[2019-11-25 06:23] LABS: Anion Gap 6 (5-15); BUN 93 mg/dL (7-18); BUN/Creat Ratio 30.2 RATIO (10-20); Calcium,Total 8.3 mg/dL (8.5-10.1); Chloride 117 mmol/L (98-107); Creatinine, Serum 3.08 mg/dL (0.70-1.30); EST Glomerular Filtration Rate 22 mL/min (>60); Est Glom Filt Rate - Afr Amer 26 mL/min (>60); Estimated Creatinine Clearance 22.95 ml/min; Glucose 219 mg/dL (74-106); Potassium 4.4 mmol/L (3.5-5.1); Sodium Level 146 mmol/L (136-145)
[2019-11-25] MEDS: Insulin Lispro 100 UNIT/ML INSULN.PEN SC ×2 (06:35→11:08)
[2019-11-25 06:41] LABS: Bedside Glucose 212 mg/dL (70-110)
[2019-11-25] MEDS: Ipratropium/Albuterol Sulfate 3 ML AMPUL.NEB INHALATION ×2 (06:53→11:06)
[2019-11-25] MEDS: Isosorbide Mononitrate 30 MG Tablet PO (09:14)
[2019-11-25] MEDS: Allopurinol 100 MG Tablet PO (09:14)
[2019-11-25] MEDS: Metoprolol Tartrate 50 MG Tablet PO (09:14)
[2019-11-25] MEDS: FLUoxetine 20 MG Capsule 40 MG PO (09:14)
[2019-11-25] MEDS: amLODIPine 5 MG Tablet PO (09:14)
[2019-11-25] MEDS: Furosemide 20 MG Tablet 60 MG PO (09:14)
[2019-11-25] MEDS: Ferrous Sulfate 325 MG Tablet PO (09:14)
--- NOTE | 2019-11-25 10:43 | PN.RENAL_ITS ---
Subjective: no new complaints - Physical Exam Vitals/I&O's: Vital Signs Temp Pulse Resp BP Pulse Ox 98.5 F 80 18 143/61 H 95 11/25/19 09:08 11/25/19 09:14 11/25/19 09:08 11/25/19 09:14 11/25/19 09:08 Oxygen Flow Rate (L/min) 2 Oxygen Delivery Method Room Air Weight: 109.8 kg Body Mass Index (BMI) 36.1 Finger Stick Blood Glucose 269 Intake and Output for Last 24 Hours 11/23/19 11/24/19 11/25/19 23:59 23:59 23:59 Intake Total 1687.5 / 1687.5 1822.5 / 1822.5 350 / 350 Output Total 2875 / 2875 1425 / 1425 1100 / 1100 Balance -1187.5 / -1187.5 397.5 / 397.5 -750 / -750 General: Alert, Oriented x3, Cooperative HEENT: Atraumatic, PERRLA, EOMI, Normocephalic Neck: Supple, No JVD, Negative Carotid Bruits Lungs: Clear to auscultation, Normal air movement Cardiovascular: Regular rate, No murmurs Abdomen: Bowel Sounds Present, Soft, Non Tender Extremities: No edema, Capillary Refill Less than 3 Seconds Skin: No rashes, No breakdown Musculoskeletal: No Tenderness to Palpation of Joints or Extremities Neurological: Cranial nerves II-XII grossly intact Psych/Mental Status: Normal Affect, Appropriate Laboratory Results 11/24/19 05:14: WBC Cancelled, Corrected WBC Cancelled, RBC Cancelled, Hgb Cancelled, Hct Cancelled, MCV Cancelled, MCH Cancelled, MCHC Cancelled, RDW Std Deviation Cancelled, RDW Coeff of Judi Cancelled, Plt Count Cancelled, MPV Cancelled, Immature Gran % (Auto) Cancelled, Neut % (Auto) Cancelled, Lymph % (Auto) Cancelled, Cochran % (Auto) Cancelled, Eos % (Auto) Cancelled, Baso % (Auto) Cancelled, Absolute Neuts (auto) Cancelled, Absolute Lymphs (auto) Cancelled, Total Counted Cancelled, Neutrophils % (Manual) Cancelled, Band Neutrophils % Cancelled, Lymphocytes % (Manual) Cancelled, Monocytes % (Manual) Cancelled, Eosinophils % (Manual) Cancelled, Basophils % (Manual) Cancelled, Metamyelocytes % Cancelled, Myelocytes % Cancelled, Promyelocytes % Cancelled, Blast Cells % Cancelled, Plasma Cell % (Manual) Cancelled, Other Cells % Cancelled, Nucleated RBC % Cancelled, Nucleated RBCs/100 WBC Cancelled, Differential Comment Cancelled, Diff Path Review Cancelled, Hypersegmented Neuts Cancelled, Atypical Lymphocytes Cancelled, Reactive Lymphocytes Cancelled, Smudge Cells Cancelled, Toxic Granulation Cancelled, Toxic Vacuolation Cancelled, Dohle Bodies Cancelled, Sunny Rods Cancelled, Platelet Estimate Cancelled, Plt Morphology Comment Cancelled, RBC Morphology Cancelled, Polychromasia Cancelled, Hypochromasia Cancelled, Poikilocytosis Cancelled, Basophilic Stippling Cancelled, Anisocytosis Cancelled, Microcytosis Cancelled, Macrocytosis Cancelled, Spherocytes Cancelled, Sickle Cells Cancelled, Target Cells Cancelled, Tear Drop Cells Cancelled, Ovalocytes Cancelled, Stomatocytes Cancel led, [place] Bodies Cancelled, Theresa Cells Cancelled, Bite Cells Cancelled, Crenated Cell Cancelled, Acanthocytes (Spur) Cancelled, Rouleaux Cancelled, Schistocytes Cancelled 11/24/19 05:14: WBC 8.7, RBC 2.87 L, Hgb 8.1 L, Hct 27.0 L, MCV 94.1 H, MCH 28.2, MCHC 30.0 L, RDW Std Deviation 58.4 H, RDW Coeff of Judi 17.5 H, Plt Count 184, MPV 10.5, Immature Gran % (Auto) 0.600, Neut % (Auto) 80.5 H, Lymph % (Auto) 7.9 L, Cochran % (Auto) 5.5, Eos % (Auto) 5.3 H, Baso % (Auto) 0.2, Absolute Neuts (auto) 7.0, Absolute Lymphs (auto) 0.69 L, Nucleated RBC % 0 11/24/19 12:10: POC Glucose 234 H 11/24/19 16:53: POC Glucose 340 H 11/24/19 21:32: POC Glucose 298 H 11/25/19 05:08: WBC 7.8, RBC 3.00 L, Hgb 8.1 L, Hct 27.6 L, MCV 92.0, MCH 27.0, MCHC 29.3 L, RDW Std Deviation 57.2 H, RDW Coeff of Judi 17.0 H, Plt Count 199, MPV 9.6, Immature Gran % (Auto) 1.300 H, Neut % (Auto) 77.4 H, Lymph % (Auto) 9.5 L, Cochran % (Auto) 6.2, Eos % (Auto) 5.3 H, Baso % (Auto) 0.3, Absolute Neuts (auto) 6.0, Absolute Lymphs (auto) 0.74 L, Nucleated RBC % 0 11/25/19 05:08: Sodium 146 H, Potassium 4.4, Chloride 117 H, Carbon Dioxide 23.0, Anion Gap 6, BUN 93 H, Creatinine 3.08 H, Estim Creat Clear Calc 22.95, Est GFR (MDRD) Af Amer 26 L, Est GFR (MDRD) Non-Af 22 L, BUN/Creatinine Ratio 30.2 H, Glucose 219 H, Calcium 8.3 L 11/25/19 06:33: POC Glucose 212 H Current Medications Acetaminophen (Tylenol) 650 mg PO Q6H PRN PRN PRN Reason: Pain Score 1-10/Temp > 100.7 F Albuterol/Ipratropium (Duoneb) 3 ml INHALATION Q4HWA.RT [facility] Last Admin: 11/25/19 06:53 Dose: 3 ml Documented by: [facility]) [facility] Admin: 11/25/19 09:14 Dose: 100 mg Documented by: Amlodipine Besylate (Norvasc) 5 mg PO BID [facility] Last Admin: 11/25/19 09:14 Dose: 5 mg Documented by: Aspirin (Ecotrin) 81 mg PO DAILY@0800 [facility] Last Admin: 11/21/19 09:46 Dose: 81 mg Documented by: Dextrose (D50w Syringe) 0 gm IV X1 PRN; Protocol PRN Reason: Hypoglycemia Ferrous Sulfate (Ferrous Sulfate) [facility] Last Admin: 11/25/19 09:14 Dose: 325 mg Documented by: Fluoxetine HCl (Prozac) 40 mg PO DAILY [facility] Last Admin: 11/25/19 09:14 Dose: 40 mg Documented by: Furosemide (Lasix) 60 mg PO BID@1000,1800 [facility] Last Admin: 11/25/19 09:14 Dose: 60 mg Documented by: Glucagon () 1 mg IM .X1 PRN PRN Reason: Hypoglycemia Sodium Chloride () 250 mls @ 15 mls/hr IV .[id number] PRN PRN Reason: Saline Flush Last Infusion: 11/23/19 21:30 Dose: Infused Documented by: Sodium Chloride () 250 mls @ 15 mls/hr IV .[id number] PRN PRN Reason: Additional IVPB Infusion Pantoprazole Sodium 40 mg/ (Sodium Chloride) 110 mls @ 330 mls/hr IV Q12 [facility] Last Infusion: 11/25/19 09:50 Dose: Infused Documented by: Insulin Glargine (Lantus ([facility])) 40 units SC BID [facility] Last Admin: 11/25/19 09:13 Dose: 40 unit Documented by: Insulin Human Lispro (Humalog Kwikpen ([facility])) 0 unit SC ACHS [facility]; Protocol Last Admin: 11/25/19 06:35 Dose: 4 units Documented by: Isosorbide Mononitrate (Imdur) 30 mg PO DAILY [facility] Last Admin: 11/25/19 09:14 Dose: 30 mg Documented by: Metoprolol Tartrate (Lopressor (Beta Ayde)) 50 mg PO BID [facility] Last Admin: 11/25/19 09:14 Dose: 50 mg Documented by: Nitroglycerin (Nitrostat) 0.4 mg SUBLINGUAL Q5M PRN PRN Reason: CHEST Ondansetron HCl (Zofran) 4 mg IV Q8H PRN PRN PRN Reason: NAUSEA/VOMITING Sodium Chloride () 10 - 40 ml IV UD PRN PRN Reason: SALINE FLUSH Last Admin: 11/24/19 09:39 Dose: 10 ml Documented by: Sodium Chloride ([place] Nasal Morris) 2 spray NASAL TID PRN PRN PRN Reason: NASAL DRYNESS Medical Necessity - Tobacco Use Smoking Status: Former smoker Tobacco Use: Non-smoker Assessment/Plan All Active Problems (Last Reviewed 11/11/19 @ 08:[address] Seth Michael MD) Upper GI bleed (Acute) Anemia (Acute) Dyspnea on exertion (Acute) EDGARDO possible CRS rule out obstruction CKD 4 baseline serum creatinine 2.4-2.6 Complex renal cyst Lower extremity edema Hypertension CHF on lasix 60 mg BID cr better edema is better overall dyspneic with minimal activity which is baseline BUN is disproportionately high likely due to GI bleed now better Hypernatremia. can relax fluid relaxation a little bit continue current lasix PO waiting for bleeding scan
[2019-11-25 11:16] LABS: Bedside Glucose 239 mg/dL (70-110)
--- NOTE | 2019-11-25 12:23 | DCINST_ITS ---
You will use the following diet at home:: Calorie/Carbohydrate Controlled (specify 1200, 1400, etc) - 1800, Cardiac Your food should be the consistency of: Regular Your liquids should be the consistency of: Regular/Thin Discharge Activity: Return to Normal Activity Weight Bearing Status: Weight bearing as tolerated Call your doctor if you observe: Fever of 101 or Higher, Shortness of breath, Dizziness, Fainting spells, Swelling in the ankles, - - blood in bowel movement Instructions: ED Diet for Chronic Kidney Disease, When You Have Gastrointestinal (GI) Bleeding, Lower GI Endoscopy, Upper GI Endoscopy, Anemia, Heart Failure Additional Instructions: use oxygen as needed at home for shortness of breath Allergies/Adverse Reactions: Allergies carvedilol [From Coreg] Allergy (Severe, Verified 11/17/19 10:01) vomiting valsartan [From Diovan] Allergy (Severe, Verified 11/17/19 14:07) Possible angioedema, throat swelling sertraline HCl [From Zoloft] Allergy (Verified 11/17/19 13:56) Unknown makes me mean bupropion HCl [From Wellbutrin] Adverse Reaction (Verified 11/17/19 10:01) gets mean citalopram Adverse Reaction (Verified 11/17/19 10:01) Other gabapentin Adverse Reaction (Verified 11/17/19 10:01) Other Medications to take at Discharge Nitroglycerin (INPATIENT USE) [Nitrostat] 0.4 mg SUBLINGUAL Q5M PRN 10/27/13 berberine-herbal comb no.18 2 cap PO BID cap 02/24/18 Allopurinol 100 mg PO DAILY 02/25/19 Astaxanthin 4 mg PO DAILY 02/25/19 Fluoxetine HCl 40 mg PO DAILY 02/25/19 Insulin Aspart [Novolog Flexpen] 36 units SUBCUT TIDCM 02/25/19 isosorbide mononitrate 30 mg tablet,extended release 24 hr 30 mg PO DAILY #90 tab 05/04/19 amlodipine 5 mg tablet 5 mg PO BID #180 tab 05/25/19 Furosemide [Lasix] 80 mg PO BID 11/10/19 Insulin Glargine [Lantus SoloStar Pen] 40 units SUBCUT BID 11/10/19 Metoprolol Tartrate [Lopressor (beta yana)] 50 mg PO BID 11/10/19 Ubidecarenone [Co Q-10] 400 mg PO BID 11/10/19 Ferrous Sulfate 325 mg PO BIDCM #60 tab 11/11/19 Pantoprazole Sodium [Protonix] 40 mg PO DAILY #30 tab 11/11/19 Primary Care Physician: Davon Lemus MD [Primary Care Provider] - Please follow up with your Primary Care Physician in: 1-2 weeks Test Results: Test results from this visit will be discussed in further detail at your follow- up appointment, if applicable. Please Follow Up With: Peyton Agarwal, LIEUTENANT/DEPUTY-C Please Follow Up With: Tenzin Sung MD When: 1-2 weeks Please Follow Up With: Seth Michael MD When: 1-2 weeks Please Follow Up With: Monica Rodrigez MD When: 1-2 weeks Please Follow Up With: Miguel A Green MD When: 2-3 weeks Please Follow Up With: Fan Dowell MD When: 1-2 weeks Proposed Discharge Date: 11/25/19
--- NOTE | 2019-11-25 12:23 | PCM.DC.SUM ---
Discharge Date and Diagnosis Date of Admission: 11/17/19 Date of Discharge: 11/25/19 - Primary Discharge Diagnosis Acute Problems: acute hypoxic respiratory failure acute on chronic HFpEF Edgardo on CKD 3 anemia - Secondary Discharge Diagnosis Chronic Problems: Chronic Problems (Last Reviewed 11/11/19 @ 08:[address] Seth Michael MD) Chronic kidney disease (Chronic) Kidney disease, chronic, stage IV (GFR 15-29 ml/min) (Chronic) COPD (chronic obstructive pulmonary disease) (Chronic) Sleep apnea (Chronic) Nephrotic range proteinuria (Chronic) Pure hypercholesterolemia (Chronic) Type 2 diabetes mellitus (Chronic) Presence of stent in coronary artery (Chronic ~08/25/14) 07/18/10, PTCA/stent to mid to distal LCx artery; 08/17/10 PTCA/stent to proximal to mid RCA; PTCA of distal RCA with DEX September 2010; PTCA with EULALIO to mid distal AV groove left CFX 08/13 Essential hypertension (Chronic) Nonrheumatic aortic (valve) stenosis (Chronic) Nonspecific abnormal unspecified cardiovascular function study (Chronic) Diastolic dysfunction (Chronic) Other custodial (current) drug therapy (Chronic) Atherosclerotic heart disease of [place] coronary artery without angina pectoris (Chronic) S/P multivessel PTCA/stent and subsequent CABG with SVG to LCx, RCA and diagonal branch with subsequent SVG graft closure to the LCx and diagonal branch; S/P CABG x 3 (Chronic ~07/21/12) CABG-SVG to diagonal, SVG to obtuse marginal & SVG to PDA 07/12; GERD (gastroesophageal reflux disease) (Chronic) Anxiety (Chronic) Hospital Course and Treatment Imaging Results: 11/25/19 05:55 GI Bleed Scan [NM] AM (NON MEDS) Diagnostic Data Chest X-Ray 11/17/19 10:56 IMPRESSION: Hazy airspace disease/vascular congestion (likely early fluid overload) Cardiomegaly cardiac surgery Electronically Signed: Brice Conner DO at 11:14 EDT Tel , Service support , Renal Ultrasound 11/19/19 14:05 IMPRESSION: 1. Bilateral enlarged kidneys. There is mild increase in renal parenchymal echogenicity suggesting medical renal disease. 2. Bilateral renal cysts. There is a septation in the larger cyst in the left kidney. This suggests a Bochdalek 2 classification. 3. Poorly distended but otherwise unremarkable urinary bladder. Electronically Signed: Luis E Fishman, at 20:10 EDT Tel [phone], Service support , GI Bleed Scan Nuclear Medicine 11/25/19 05:55 IMPRESSION: 1. NEGATIVE 99m Tc ULTRATAG LABELED BLOOD POOL GASTROINTESTINAL BLEEDING EXAMINATION. 2. There is no current definitive scintigraphic evidence of acute gastrointestinal hemorrhage on the present evaluation. 3. Overall compared to the previous gastrointestinal bleeding study dated 11/19/2019, there is interval resolution of the prior defined presumed transverse colon active bleeding site. Electronically Signed: Yves Kameron, at 10:26 EDT Tel , Service support , general surgery- Dr Michael nephrology- Dr Rodrigez cardiology- Dr Giraldo ENT- Dr Sung Operations: [email or web address] - 10/29/[address] Arnol Brooks, ERCP - Dr. Solis on 10/27/13 and 10/30/13 Procedures: 2-D Echocardiogram Summary of Care Provided: Patient is a 69-year-old male with an extensive past medical history as outlined was admitted through the ED on 11/17/2019 with a complaint of shortness of breath, orthopnea and paroxysmal nocturnal dyspnea. He had no associated chest pain no dizziness or palpitations. Patient had been previously admitted on 11/10/2019 and discharged on 11/11/2019 and was admitted at that time for melena stools and had been scheduled for an outpatient endoscopy. However he developed shortness of breath and decided to come in. On admission, hemoglobin was 8.3 which is around the previous level of 8.4. Chest x-ray showed hazy airspace disease and vascular congestion as well as cardiomegaly. D-dimer was mildly elevated at 0.86. BNP was 396 and troponins were negative. Coronavirus check was negative. He was admitted and managed for acute hypoxic respiratory failure due to acute on chronic heart failure with preserved ejection fraction versus progressive aortic stenosis and fluid overload from EDGARDO on CKD. He was started on IV Lasix for diuresis. Nephrology was also consulted. He was initially put on therapeutic Lovenox due to concerns for PE. Hemoglobin subsequently dropped and stool for occult blood was positive. Therapeutic Lovenox was discontinued and general surgery was consulted. Pulmonology and nephrology were also consulted. Cardiology was also consulted on account of acute on chronic diastolic heart failure. Hemoglobin kept on dropping to a ashlie of 7.6 g per DL. He had colonoscopy which was negative apart from 2 polyps which were removed. He had a bleeding scan which was positive for bleeding in the mid transverse colon. He had EGD which showed normal duodenum and normal stomach but showed abnormal oropharynx and nasopharynx with significant amount of blood and irregularity in the larynx. ENT was therefore consulted. He had a flexible laryngoscopy which showed septum deviated to the left with dried blood in the left nasal chamber and on the left septum consistent with nasal cannula usage but no active bleeding, cell polyp and with normal nasopharynx, base of tongue, vallecula and epiglottis. It was thought that he likely had intermittent epistasis due to dryness from oxygen use. Patient's creatinine gradually trended down to around 3 at time of discharge. Patient had a repeat bleeding scan which was negative for any evidence of bleeding. With ambulation, patient saturation dropped to 86% on room air he required 2 L of oxygen to get up to 90% with ambulation. He remained stable and was discharged home on 11/25/2019 with home oxygen and is to follow-up with his primary care doctor, nephrology, cardiology, gastroenterology and ENT. His aspirin was stopped due to anemia. His IV Lasix was switched to p.o. Lasix he was discharged on p.o. Lasix 80 mg twice daily. Note, 2D echo done during admission showed EF of 65% with mild concentric left ventricular hypertrophy and mild to moderate aortic stenosis. Patient seen and examined prior to discharge. His Jasmin was by his bedside. He had no complaints. Review of symptoms otherwise negative. Labs and vitals reviewed. Hemoglobin was 8.1 and had been stable at that level. Review of symptoms otherwise negative. Patient and his were counseled extensively about his various diagnoses and the need to comply with fluid restriction at home and to be using his oxygen as needed for shortness of breath. He was also counseled about his kidney function and the need follow-up with nephrology. Patient and expressed understanding about his various diagnoses. Patient asked how long he had to live and asked if he had 1 or 2 years to live. I explained to patient that I could not state how long he had to live but he could significantly impact his quality of life by adhering to his treatment plan and being compliant with his medication. O/E: Vital Signs Temp Pulse Resp BP Pulse Ox 98.5 F 73 18 143/61 H 86 11/25/19 09:08 11/25/19 11:11/25/19 11:11/25/19 09:14 11/25/19 11:44 General: Alert, Oriented x3, Cooperative, No apparent distress HEENT: Atraumatic, PERRLA, EOMI, Normocephalic Oral: Dry Mucosa Neck: Supple, No JVD, Negative Carotid Bruits Lungs: Clear to auscultation, Normal air movement, No rhonchi, No wheeze, No rales; on room air Cardiovascular: Regular rate, No murmurs Abdomen: Bowel Sounds Present, Soft, Non Tender Extremities: No clubbing, No cyanosis, No edema, Capillary Refill Less than 3 Seconds Skin: No rashes, No breakdown Musculoskeletal: No Tenderness to Palpation of Joints or Extremities Lymphatic: No Cervical, Supraclavicular, or Inguinal Adenopathy Neurological: Cranial nerves II-XII grossly intact, Neuro grossly intact, Motor Exam 5/5 strength throughout Psych/Mental Status: Normal Affect, Appropriate, Alert and oriented to time, place, person, mood and affect plan is for discharge home today. - Physical Exam Vitals/I&O's: Vital Signs Temp Pulse Resp BP Pulse Ox 98.5 F 73 18 143/61 H 86 11/25/19 09:08 11/25/19 11:11/25/19 11:11/25/19 09:14 11/25/19 11:44 Oxygen Flow Rate (L/min) [ 2 AMBULATION with Oxygen] Oxygen Flow Rate (L/min) 2 Oxygen Delivery Method Room Air Weight: 242 lb 1.081 oz Body Mass Index (BMI) 36.1 Finger Stick Blood Glucose 269 Intake and Output for Last 24 Hours 11/23/19 11/24/19 11/25/19 23:59 23:59 23:59 Intake Total 1687.5 / 1687.5 1822.5 / 1822.5 1050 / 1050 Output Total 2875 / 2875 1425 / 1425 1100 / 1100 Balance -1187.5 / -1187.5 397.5 / 397.5 -50 / -50 Laboratory Results 11/24/19 16:53: POC Glucose 340 H 11/24/19 21:32: POC Glucose 298 H 11/25/19 05:08: WBC 7.8, RBC 3.00 L, Hgb 8.1 L, Hct 27.6 L, MCV 92.0, MCH 27.0, MCHC 29.3 L, RDW Std Deviation 57.2 H, RDW Coeff of Judi 17.0 H, Plt Count 199, MPV 9.6, Immature Gran % (Auto) 1.300 H, Neut % (Auto) 77.4 H, Lymph % (Auto) 9.5 L, [place] % (Auto) 6.2, Eos % (Auto) 5.3 H, Baso % (Auto) 0.3, Absolute Neuts (auto) 6.0, Absolute Lymphs (auto) 0.74 L, Nucleated RBC % 0 11/25/19 05:08: Sodium 146 H, Potassium 4.4, Chloride 117 H, Carbon Dioxide 23.0, Anion Gap 6, BUN 93 H, Creatinine 3.08 H, Estim Creat Clear Calc 22.95, Est GFR (MDRD) Af Amer 26 L, Est GFR (MDRD) Non-Af 22 L, BUN/Creatinine Ratio 30.2 H, Glucose 219 H, Calcium 8.3 L 11/25/19 06:33: POC Glucose 212 H 11/25/19 11:07: POC Glucose 239 H Interpretation Summary Mild concentric left ventricular hypertrophy. Mildly dilated left ventricle. The estimated ejection fraction is 65 %. The left atrium is mildly enlarged. Unable to estimate RV systolic pressure due to insufficient tricuspid regurgitant envelope. Moderate restriction of the aortic valve. Mild to moderate aortic stenosis. Peak aortic valve gradient 35 mmHg. Calculated aortic valve area (continuity equation) is 1.2 cm2. Compared to echo report dated 12/11/2018, LV function has remained the same, but aortic vavle gradient appears to have improved from moderate/severe to mild/moderate. AV gradients may be affected by degree of anemia. The study was technically difficult. Contrast injection was performed. Current Medications Acetaminophen (Tylenol) 650 mg PO Q6H PRN PRN PRN Reason: Pain Score 1-10/Temp > 100.7 F Albuterol/Ipratropium (Duoneb) 3 ml INHALATION Q4HWA.RT [facility] Last Admin: 11/25/19 11:06 Dose: 3 ml Documented by: Allopurinol (Zyloprim) 100 mg PO DAILYCM [facility] Last Admin: 11/25/19 09:14 Dose: 100 mg Documented by: Amlodipine Besylate (Norvasc) 5 mg PO BID [facility] Last Admin: 11/25/19 09:14 Dose: 5 mg Documented by: Aspirin (Ecotrin) 81 mg PO DAILY@0800 [facility] Last Admin: 11/21/19 09:46 Dose: 81 mg Documented by: Dextrose (D50w Syringe) 0 gm IV X1 PRN; Protocol PRN Reason: Hypoglycemia [facility] Admin: 11/25/19 09:14 Dose: 325 mg Documented by: Fluoxetine HCl (Prozac) 40 mg PO DAILY [facility] Last Admin: 11/25/19 09:14 Dose: 40 mg Documented by: Furosemide (Lasix) 60 mg PO BID@1000,1800 [facility] Last Admin: 11/25/19 09:14 Dose: 60 mg Documented by: Glucagon () 1 mg IM .X1 PRN PRN Reason: Hypoglycemia Sodium Chloride () 250 mls @ 15 mls/hr IV .[id number] PRN PRN Reason: Saline Flush Last Infusion: 11/23/19 21:30 Dose: Infused Documented by: Sodium Chloride () 250 mls @ 15 mls/hr IV .[id number] PRN PRN Reason: Additional IVPB Infusion Pantoprazole Sodium 40 mg/ (Sodium Chloride) 110 mls @ 330 mls/hr IV Q12 [facility] Last Infusion: 11/25/19 09:50 Dose: Infused Documented by: Insulin Glargine (Lantus (Bkc)) 40 units SC BID [facility] Last Admin: 11/25/19 09:13 Dose: 40 unit Documented by: Insulin Human Lispro (Humalog Kwikpen (Bk)) 0 unit SC ACHS [facility]; Protocol Last Admin: 11/25/19 11:08 Dose: 4 units Documented by: Isosorbide Mononitrate (Imdur) 30 mg PO DAILY [facility] Last Admin: 11/25/19 09:14 Dose: 30 mg Documented by: Metoprolol Tartrate (Lopressor (Beta Ayde)) 50 mg PO BID [facility] Last Admin: 11/25/19 09:14 Dose: 50 mg Documented by: Nitroglycerin (Nitrostat) 0.4 mg SUBLINGUAL Q5M PRN PRN Reason: CHEST Ondansetron HCl (Zofran) 4 mg IV Q8H PRN PRN PRN Reason: NAUSEA/VOMITING Sodium Chloride () 10 - 40 ml IV UD PRN PRN Reason: SALINE FLUSH Last Admin: 11/24/19 09:39 Dose: 10 ml Documented by: Sodium Chloride ([place] Nasal Twilight) 2 spray NASAL TID PRN PRN PRN Reason: NASAL DRYNESS Discharge Diet: Low fat/ Low Cholesterol Call your doctor if you observe: Fever of 101 or Higher, Shortness of breath, Dizziness, Fainting spells, Swelling in the ankles, Chest pain Home Medications: Medications to take at Discharge Nitroglycerin (INPATIENT USE) [Nitrostat] 0.4 mg SUBLINGUAL Q5M PRN 10/27/13 berberine-herbal comb no.18 2 cap PO BID cap 02/24/18 Allopurinol 100 mg PO DAILY 02/25/19 Astaxanthin 4 mg PO DAILY 02/25/19 Fluoxetine HCl 40 mg PO DAILY 02/25/19 Insulin Aspart [Novolog Flexpen] 36 units SUBCUT TIDCM 02/25/19 isosorbide mononitrate 30 mg tablet,extended release 24 hr 30 mg PO DAILY #90 tab 05/04/19 amlodipine 5 mg tablet 5 mg PO BID #180 tab 05/25/19 Furosemide [Lasix] 80 mg PO BID 11/10/19 Insulin Glargine [Lantus SoloStar Pen] 40 units SUBCUT BID 11/10/19 Metoprolol Tartrate [Lopressor (beta ayde)] 50 mg PO BID 11/10/19 Ubidecarenone [Co Q-10] 400 mg PO BID 11/10/19 Ferrous Sulfate 325 mg PO BIDCM #60 tab 11/11/19 Pantoprazole Sodium [Protonix] 40 mg PO DAILY #30 tab 11/11/19 Primary Care Physician: Lemus,Davon, MD [Primary Care Provider] - Please follow up with your Primary Care Physician in: 1-2 weeks Please Follow Up With: Peyton Agarwal NP-C Please Follow Up With: Tenzin Sung MD Please Follow Up With: Seth Michael MD When: 1-2 weeks Please Follow Up With: Fan Dowell MD When: 2-4 weeks Please Follow Up With: Monica Rodrigez MD When: 1-2 weeks Patient Instructions: When You Have Gastrointestinal (GI) Bleeding, Anemia, Lower GI Endoscopy, Upper GI Endoscopy, Heart Failure, ED Diet for Chronic Kidney Disease Disposition: Home Minutes spent on discharge:: 50 Patient Condition:: Stable Medical Necessity - Tobacco Use Smoking Status: Former smoker Tobacco Use: Non-smoker Meaningful Use Info Meaningful Use Diagnoses (Choose all that apply): CHF - CHF WILMER/ARB ordered at discharge?: No Reason WILMER/ARB not ordered?: Worsening renal dysfunctn Documented LVEF (%): 65 Inpatient E&M: 31918 Disch Hosp
--- NOTE | 2019-11-25 12:32 | CASEMGMT ---
Per Paola STRICKLAND, pt qualifies for 2 liters home oxygen with exertion at this time. This RN CM to room to speak with pt/ in regards to same and [place] [facility] [place] as pt recently obtained some other equipment from them. Referral for oxygen faxed to [facility] at this time. Therapy states no therapy needed for pt at this time. Pt/ no further concerns/needs with going home at this time. Call to [facility] to notify of referral and pt discharge today. Jaylan STRICKLAND CM
--- NOTE | 2019-11-25 12:36 | PHA.DC.MR ---
Pharmacy Service has performed discharge medication reconciliation for this patient. The patient's discharge medication list was reviewed for discrepancies and discrepancies were resolved. Home Medications Nitroglycerin (INPATIENT USE) [Nitrostat] 0.4 mg SUBLINGUAL Q5M PRN 10/27/13 berberine-herbal comb no.18 2 cap PO BID cap 02/24/18 Allopurinol 100 mg PO DAILY 02/25/19 Astaxanthin 4 mg PO DAILY 02/25/19 Fluoxetine HCl 40 mg PO DAILY 02/25/19 Insulin Aspart [Novolog Flexpen] 36 units SUBCUT TIDCM 02/25/19 isosorbide mononitrate 30 mg tablet,extended release 24 hr 30 mg PO DAILY #90 tab 05/04/19 amlodipine 5 mg tablet 5 mg PO BID #180 tab 05/25/19 Furosemide [Lasix] 80 mg PO BID 11/10/19 Insulin Glargine [Lantus SoloStar Pen] 40 units SUBCUT BID 11/10/19 Metoprolol Tartrate [Lopressor (beta yana)] 50 mg PO BID 11/10/19 Ubidecarenone [Co Q-10] 400 mg PO BID 11/10/19 Ferrous Sulfate 325 mg PO BIDCM #60 tab 11/11/19 Pantoprazole Sodium [Protonix] 40 mg PO DAILY #30 tab 11/11/19
--- NOTE | 2019-11-25 13:09 | PCA ---
Demographic sheet faxed to office, . Office stated that they will contact pt and get him in within the next couple weeks.
--- NOTE | 2019-11-26 14:28 | CASEMGMT ---
Addendum entered by Jil Encarnacion 12/02/19 11:40: This RN CM received a message back from pt's for this RN CM to call back. Call to at this time and she states that pt has been 'doing alright' since discharge. She states that they are working on all the f/u appt's. She states no questions regarding discharge instructions/medications at this time. states no suggestions for [facility] at this time. voices no further questions/concerns/needs at this time. Jaylan STRICKLAND CM Original Note: RN CM Discharge F/U Phone Call LACE: 14 Strata: 4 Discharge date: 11/25/2019 Call date: 11/26/2019 Call time: [phone] Attempted to reach pt without success at this time, message left for pt to call this RN CM back if/when able. Jaylan STRICKLAND CM Admission dx: Hypoxia
== END 2019-11-25 13:53 | disposition home or self-care (01) | DRG 291 ==
LOC: ED 10:32 → PCU 13:34
PROVIDERS: Anesthesiology; Surgery; Admitting Provider Internal Medicine; Emergency Provider Emergency Medicine; PCP Internal Medicine; Visit Provider Student in an Organized Health Care Education/Training Program
PROC: 0DJD8ZZ Inspection of Lower Intestinal Tract, Via Natural or Artificial Opening Endoscopic (ICD-10-PCS; CPT 45378; principal; 2019-11-20 11:55)
PROC: 0DJ08ZZ Inspection of Upper Intestinal Tract, Via Natural or Artificial Opening Endoscopic (ICD-10-PCS; CPT 43235; principal; 2019-11-23 10:40)
DX: I13.0 Hypertensive heart and chronic kidney disease with heart failure and stage 1 through stage 4 chronic kidney disease, or unspecified chronic kidney disease (principal); I50.33 Acute on chronic diastolic (congestive) heart failure; K57.31 Diverticulosis of large intestine without perforation or abscess with bleeding; D62 Acute posthemorrhagic anemia; N17.9 Acute kidney failure, unspecified; N18.4 Chronic kidney disease, stage 4 (severe); K92.0 Hematemesis; E87.0 Hyperosmolality and hypernatremia; R04.0 Epistaxis; E11.22 Type 2 diabetes mellitus with diabetic chronic kidney disease; I25.10 Atherosclerotic heart disease of native coronary artery without angina pectoris; I35.0 Nonrheumatic aortic (valve) stenosis; J44.9 Chronic obstructive pulmonary disease, unspecified; D50.9 Iron deficiency anemia, unspecified; E11.319 Type 2 diabetes mellitus with unspecified diabetic retinopathy without macular edema; R06.89 Other abnormalities of breathing; E11.649 Type 2 diabetes mellitus with hypoglycemia without coma; G47.33 Obstructive sleep apnea (adult) (pediatric); K64.8 Other hemorrhoids; D12.3 Benign neoplasm of transverse colon; D12.2 Benign neoplasm of ascending colon; J34.2 Deviated nasal septum; N28.1 Cyst of kidney, acquired; E78.5 Hyperlipidemia, unspecified; K21.9 Gastro-esophageal reflux disease without esophagitis; F32.9 Major depressive disorder, single episode, unspecified; F41.9 Anxiety disorder, unspecified; E66.9 Obesity, unspecified; Z68.37 Body mass index [BMI] 37.0-37.9, adult; Z79.4 Long term (current) use of insulin; Z79.82 Long term (current) use of aspirin; Z79.899 Other long term (current) drug therapy; I25.2 Old myocardial infarction; Z87.891 Personal history of nicotine dependence; Z95.1 Presence of aortocoronary bypass graft; Z95.5 Presence of coronary angioplasty implant and graft; Z96.653 Presence of artificial knee joint, bilateral
CPT/HCPCS: 36415; 71045; 76770; 78278; 80048; 80053; 80069; 80076; 82274; 82570; 82962; 83036; 83880; 84300; 84484; 85014; 85018; 85025; 85379; 85610; 85730; 86850; 86900; 86901; 86920; 86922; 87635; 88305; 88342; 93005; 93306; 94640; 94799; 97110; 97116; 97162; 97166; 97530; 97535; 97802; 97803; 99251; 99285; A9560; J7040; J7050; J7120; P9016; Q9957; A4216; C8929; G0463; J1610; J1940; J2405; U0003

== ENCOUNTER → 2019-12-01 11:13 | Outpatient (CLI) | payer MEDICARE, OTHER, SELFPAY ==
[2019-11-23 08:07] VITALS: BMI 36.1
[2019-12-01 11:37] LABS: Hematocrit 28.5 % (40-54); Hemoglobin 8.6 g/dL (13.0-16.5); Mean Corp Hgb Conc 30.2 g/dL (32-36); Mean Corpuscular Hgb 28.3 pg (27.0-32.0); Mean Corpuscular Volume 93.8 fL (80-94); Mean Platelet Vol. 9.5 fl (6.2-12.0); Platelet Count 177 K/mm3 (150-450); RBC Distribution Width CV 17.5 % (11.6-14.6); RBC Distribution Width SD 58.4 fl (35.1-43.9); Red Blood Count 3.04 M/mm3 (4.6-6.2); White Blood Count 9.4 K/mm3 (4.4-11.0)
[2019-12-01 11:46] LABS: Protein, Urine (Random) 89.1 mg/dL (<11.9); Protein:Creat Ratio 956 mg/g CRE (0-200)
[2019-12-01 12:32] LABS: Albumin, Serum 3.2 g/dL (3.2-5.0); BUN 100 mg/dL (7-18); BUN/Creat Ratio 31.2 RATIO (10-20); Calcium,Total 8.1 mg/dL (8.5-10.1); Chloride 115 mmol/L (98-107); Creatinine, Serum 3.21 mg/dL (0.70-1.30); EST Glomerular Filtration Rate 21 mL/min (>60); Est Glom Filt Rate - Afr Amer 25 mL/min (>60); Glucose 209 mg/dL (74-106); Phosphorus 3.9 mg/dL (2.5-4.9); Potassium 4.4 mmol/L (3.5-5.1); Sodium Level 143 mmol/L (136-145)
[2019-12-01 13:03] LABS: PTHIN 129.6 pg/mL (18.4-80.1)
[2019-12-01 13:07] LABS: Vitamin D,25 Hydroxy 37.3 ng/mL
== END ==
PROVIDERS: PCP Internal Medicine; Referring Provider Internal Medicine Nephrology; Visit Provider Internal Medicine Nephrology
DX: N18.4 Chronic kidney disease, stage 4 (severe) (principal); E55.9 Vitamin D deficiency, unspecified; D64.9 Anemia, unspecified
CPT/HCPCS: 36415; 80069; 82306; 82570; 83970; 84156; 85027

== ENCOUNTER → 2020-01-05 09:50 | Outpatient (CLI) | payer MEDICARE, OTHER, SELFPAY ==
[2019-12-18 14:21] VITALS: BMI 36.9
[2020-01-05 10:56] LABS: Anion Gap 9 (5-15); BUN 92 mg/dL (7-18); BUN/Creat Ratio 31.8 RATIO (10-20); Calcium,Total 8.3 mg/dL (8.5-10.1); Chloride 116 mmol/L (98-107); Creatinine, Serum 2.89 mg/dL (0.70-1.30); EST Glomerular Filtration Rate 23 mL/min (>60); Est Glom Filt Rate - Afr Amer 28 mL/min (>60); Glucose 186 mg/dL (74-106); Potassium 4.3 mmol/L (3.5-5.1); Sodium Level 144 mmol/L (136-145)
[2020-01-05 11:30] LABS: Protein, Urine (Random) 87.5 mg/dL (<11.9); Protein:Creat Ratio 1264 mg/g CRE (0-200)
== END ==
PROVIDERS: PCP Internal Medicine; Referring Provider Internal Medicine Nephrology; Visit Provider Internal Medicine Nephrology
DX: N18.4 Chronic kidney disease, stage 4 (severe) (principal)
CPT/HCPCS: 36415; 80048; 82570; 84156

== ENCOUNTER → 2020-03-05 12:03 | Outpatient (CLI) | payer MEDICARE, OTHER, SELFPAY ==
[2020-02-04 10:55] VITALS: BMI 36.8
[2020-03-05 12:36] LABS: Hematocrit 35.1 % (40-54); Hemoglobin 10.7 g/dL (13.0-16.5); Mean Corp Hgb Conc 30.5 g/dL (32-36); Mean Corpuscular Volume 88.4 fL (80-94); Mean Platelet Vol. 9.4 fl (6.2-12.0); Platelet Count 203 K/mm3 (150-450); RBC Distribution Width CV 17.6 % (11.6-14.6); RBC Distribution Width SD 56.8 fl (35.1-43.9); Red Blood Count 3.97 M/mm3 (4.6-6.2); White Blood Count 8.7 K/mm3 (4.4-11.0)
[2020-03-05 13:22] LABS: Anion Gap 8 (5-15); BUN 106 mg/dL (7-18); BUN/Creat Ratio 36.8 RATIO (10-20); Calcium,Total 8.4 mg/dL (8.5-10.1); Chloride 110 mmol/L (98-107); Creatinine, Serum 2.88 mg/dL (0.70-1.30); EST Glomerular Filtration Rate 23 mL/min (>60); Est Glom Filt Rate - Afr Amer 28 mL/min (>60); Ferritin 134 ng/mL (26-388); Glucose 166 mg/dL (74-106); Iron 45 ug/dL (65-175); Iron Binding Capacity,Total 291 ug/dL (250-450); Potassium 4.2 mmol/L (3.5-5.1); Sodium Level 140 mmol/L (136-145)
[2020-03-05 13:33] LABS: Protein, Urine (Random) 92.7 mg/dL (<11.9); Protein:Creat Ratio 1280 mg/g CRE (0-200)
== END ==
PROVIDERS: PCP Internal Medicine; Visit Provider Internal Medicine Nephrology
DX: N17.9 Acute kidney failure, unspecified (principal); N18.4 Chronic kidney disease, stage 4 (severe); D64.9 Anemia, unspecified
CPT/HCPCS: 36415; 80048; 82570; 82728; 83540; 83550; 84156; 85027

== ENCOUNTER → 2020-05-25 10:17 | Outpatient (CLI) | payer MEDICARE, OTHER, SELFPAY ==
[2020-02-04 10:55] VITALS: BMI 36.8
[2020-05-25 10:59] LABS: Protein, Urine (Random) 95.4 mg/dL (<11.9); Protein:Creat Ratio 1491 mg/g CRE (0-200)
[2020-05-25 11:13] LABS: Anion Gap 11 (5-15); BUN 107 mg/dL (7-18); BUN/Creat Ratio 34.7 RATIO (10-20); Calcium,Total 8.4 mg/dL (8.5-10.1); Chloride 105 mmol/L (98-107); Creatinine, Serum 3.08 mg/dL (0.70-1.30); EST Glomerular Filtration Rate 22 mL/min (>60); Est Glom Filt Rate - Afr Amer 26 mL/min (>60); Glucose 237 mg/dL (74-106); Potassium 4.1 mmol/L (3.5-5.1); Sodium Level 138 mmol/L (136-145)
== END ==
PROVIDERS: PCP Internal Medicine; Referring Provider Internal Medicine Nephrology; Visit Provider Internal Medicine Nephrology
DX: N18.4 Chronic kidney disease, stage 4 (severe) (principal)
CPT/HCPCS: 36415; 80048; 82570; 84156

== ENCOUNTER 2020-06-30 16:21 | Emergency (ER) | payer MEDICARE, OTHER, SELFPAY ==
[2020-02-04 10:55] VITALS: BMI 36.8
[2020-06-30] VITALS (7 sets, daily range): BP systolic 136–139; BP diastolic 66–80; PULSE 63–72; RESP 18–26; TEMP 35.9–36.4; O2SAT 82–98; BMI 36.9
--- NOTE | 2020-06-30 16:41 | EKG12_ITS ---
Test Reason : SOB Blood Pressure : / mmHG Vent. Rate : 067 BPM Atrial Rate : 067 BPM P-R Int : 192 ms QRS Dur : 098 ms QT Int : 456 ms P-R-T Axes : 032 078 153 degrees QTc Int : 481 ms Sinus rhythm with Premature atrial complexes Nonspecific ST and T wave abnormality Prolonged QT Abnormal ECG Confirmed by JAE BACK, SADIE ([id number]), mapping editor ROCÍO NORTON ([id number]) on 07/01/2020 12:53:29 PM Referred By: GENEVA Confirmed By:SADIE ROWE MD
[2020-06-30 16:57] LABS: Absolute Lymphocyte Count 0.65 X10^3/uL (0.83-4.51); Absolute Neutrophil Count 7.4 X10^3/uL (2.0-7.7); Basophil# 0.03 X10^3/uL; Basophil% 0.3 % (0-1); Eosinophils% 2.2 % (0-5); Lymphocyte # 0.65 X10^3/ul (4.0); Lymphocyte % 7.1 % (19-41); Mean Corp Hgb Conc 30.3 g/dL (32-36); Mean Corpuscular Hgb 26.2 pg (27.0-32.0); Mean Corpuscular Volume 86.4 fL (80-94); Monocyte# 0.63 X10^3/uL; Monocyte% 6.9 % (0-10); NRBC Flagged by Analyzer 0.3 % (0-5); Neutrophil # 7.41 X10^3/uL (2.7-7.7); Neutrophil % 81.2 % (47-70); Platelet Count 164 K/mm3 (150-450); RBC Distribution Width CV 17.6 % (11.6-14.6); RBC Distribution Width SD 54.2 fl (35.1-43.9); Red Blood Count 3.82 M/mm3 (4.6-6.2); White Blood Count 9.1 K/mm3 (4.4-11.0)
--- NOTE | 2020-06-30 17:03 | ED.DCSUM_ITS ---
- ER Visit Summary Date of Service: 06/30/20 Chief Complaint: Shortness of breath History of Present Illness: The patient is a 70 M patient presents for shortness of breath for 2 weeks. Earlier this month, before his symptoms started he had an aortic valve replacement at the [facility]. He felt like a new man. He decided to stop his oxygen which he was prescribed for COPD by his public address systems mechanic Dr. Reid. He was advised to use 2 to 3 L by nasal cannula. He no longer has his oxygen at home. He says he got tired of carrying it around. He presents today for increasing shortness of breath over the past 2 weeks. He denies any other respiratory symptoms like cough. Denies any chest pain. D enies any fever or systemic illness. No other associated symptoms. Since coming to the ER, the nurse put him on oxygen, and his symptoms have resolved. Physical Examination: Afebrile and vital signs unremarkable. 96% on 4 L. Speaking in full sentences without distress. Lungs clear. Heart regular. Trace lower extremity edema, symmetric, nontender. Skin appears normal. Test Results: EKG shows sinus rhythm at a rate of [address]-T wave changes. Basic labs and chest x-ray are pending. Emergency Department Course and Treatment: It sounds like the symptoms may be attributed to his noncompliance with oxygen. I checked an EKG, basic labs, and a chest x-ray. Will reassess and discuss with his public address systems mechanic. Hemoglobin 10.0, stable. BUN 90 and creatinine 3.46, both stable. Troponin negative. BNP 374. Chest x-ray showed chronic and postoperative changes. Nothing acute. Reviewed by myself and the radiologist. Patient ambulated on nasal cannula and was doing well. No further complaints. No dyspnea. No desaturation. I suspect his hypoxia and symptoms are related to noncompliance with his oxygen therapy. I attempted to contact his public address systems mechanic but he was not on-call today. Patient will follow up in the office. Call tomorrow. Return for any new or worsening issues. Patient is appropriate for discharge on nasal cannula oxygen 3 L for COPD and hypoxia. Treatment Plan: As above Disposition: Discharge Impression: Hypoxia This note was generated with [employer] dictation software. It may contain incorrect words, spelling, and punctuation that were not noted in review of the chart prior to signing ED Disposition - Plan for ED Patient: Referrals: Davon Lemus MD [Primary Care Provider] -
--- NOTE | 2020-06-30 17:10 | RAD_ITS ---
STUDY: X-RAY CHEST REASON FOR EXAM: Male, 70 years old. chest pain TECHNIQUE: 1 view apical lordotic COMPARISON: Prior chest radiograph of 11/15/2019 FINDINGS: The lungs are clear and expanded. There is no demonstrated pleural abnormality. Stable cardiac size status post prior midline sternotomy. Normal mediastinum and ursula. Normal visualized pulmonary arteries. There is atherosclerotic calcification of the aortic arch with tortuosity. Normal visualized ribs, clavicles, and shoulders. There is no demonstrated abnormality of the visualized soft tissue structures of the upper abdomen. RAD/Chest 1 View (Portable) IMPRESSION: No acute cardiopulmonary findings or changes. Stable cardiac size status post prior midline sternotomy. Negative for new consolidation, atelectasis or substantial pleural effusion. Electronically Signed: Sharifa Holcomb MD at 17:45 EDT , Service support ,
[2020-06-30 17:18] LABS: BNP,B-Type NATRIURETIC PEPTIDE 374.4 pg/mL (0-100)
[2020-06-30 17:37] LABS: Anion Gap 8 (5-15); BUN 90 mg/dL (7-18); Calcium,Total 8.2 mg/dL (8.5-10.1); Chloride 113 mmol/L (98-107); Creatinine, Serum 3.46 mg/dL (0.70-1.30); EST Glomerular Filtration Rate 19 mL/min (>60); Est Glom Filt Rate - Afr Amer 23 mL/min (>60); Estimated Creatinine Clearance 20.15 ml/min; Glucose 75 mg/dL (74-106); Potassium 4.5 mmol/L (3.5-5.1); Sodium Level 141 mmol/L (136-145)
--- NOTE | 2020-06-30 17:59 | ED.DEP ---
ED Disposition - Plan for ED Patient: Instructions: Using Oxygen Safely Referrals: Shlomo Reid DO [STAFF PHYSICIAN] - Additional Instructions: Patient is appropriate for discharge on home oxygen which is indicated for his hypoxia and COPD. Call your customer service coordinator tomorrow for follow-up.
--- NOTE | 2020-06-30 18:05 | ED.RN ---
THIS NURSE SPOKE WITH [facility] TO GET THE PT HOME OXYGEN THEY WILL BE HERE IN AN HOUR AND A HALF. FAMILY WAS UPDATED ABOUT DISPO AND OXYGEN DELIVERY BY THIS RN.
== END 2020-06-30 19:58 | disposition home or self-care (01) ==
LOC: ED 16:54
PROVIDERS: Emergency Provider Emergency Medicine; PCP Internal Medicine
DX: R09.02 Hypoxemia (principal); I25.10 Atherosclerotic heart disease of native coronary artery without angina pectoris; E11.9 Type 2 diabetes mellitus without complications; I10 Essential (primary) hypertension; K21.9 Gastro-esophageal reflux disease without esophagitis; Z95.2 Presence of prosthetic heart valve; Z79.4 Long term (current) use of insulin; Z79.82 Long term (current) use of aspirin
CPT/HCPCS: 71045; 80048; 83880; 84484; 85025; 93005; 99284; A4216

== ENCOUNTER 2020-07-09 17:13 | Inpatient (IN) | payer MEDICARE, OTHER, SELFPAY ==
[2020-06-30 16:21] VITALS: BMI 36.9
[2020-07-09] VITALS (11 sets, daily range): BP systolic 140–153; BP diastolic 72–94; PULSE 63–72; RESP 12–24; TEMP 36.4–36.9; O2SAT 93–95; BMI 38.5; BMI 38.3
--- NOTE | 2020-07-09 17:31 | EKG12_ITS ---
Test Reason : CHF Blood Pressure : / mmHG Vent. Rate : 064 BPM Atrial Rate : 064 BPM P-R Int : 194 ms QRS Dur : 100 ms QT Int : 450 ms P-R-T Axes : 048 083 -20 degrees QTc Int : 464 ms Normal sinus rhythm Nonspecific T wave abnormality Abnormal ECG Confirmed by ANTHONY BACK, JACKIE ([id number]), medical editor ROÍCO NORTON ([id number]) on 07/13/2020 10:53:11 AM Referred By: GINA Confirmed By:JACKIE CRUZ MD
--- NOTE | 2020-07-09 17:32 | RAD_ITS ---
STUDY: X-RAY CHEST REASON FOR EXAM: Male, 70 years old. dyspnea TECHNIQUE: AP COMPARISON: 06/30/2020 FINDINGS: EKG leads project over the chest. The lungs are clear and expanded. There is no demonstrated pleural abnormality. There is mild cardiac enlargement. EKG leads project over the chest. Normal visualized pulmonary arteries. There is atherosclerotic calcification of the aortic arch with tortuosity. No acute bony process. There is no demonstrated abnormality of the visualized soft tissue structures of the upper abdomen. RAD/Chest 1 View (Portable) IMPRESSION: Nonacute portable x-ray examination of the chest. Electronically Signed: Duc Gomez MD (Brooks) at 18:27 EDT , Service support ,
[2020-07-09 17:38] LABS: Absolute Lymphocyte Count 0.64 X10^3/uL (0.83-4.51); Absolute Neutrophil Count 7.9 X10^3/uL (2.0-7.7); Basophil# 0.02 X10^3/uL; Basophil% 0.2 % (0-1); Eosinophil# 0.15 X10^3/uL; Eosinophils% 1.6 % (0-5); Hematocrit 34.7 % (40-54); Hemoglobin 10.4 g/dL (13.0-16.5); Lymphocyte # 0.64 X10^3/ul (4.0); Lymphocyte % 6.8 % (19-41); Mean Corpuscular Volume 86.8 fL (80-94); Mean Platelet Vol. 9.5 fl (6.2-12.0); Monocyte# 0.65 X10^3/uL; Monocyte% 6.9 % (0-10); NRBC Flagged by Analyzer 0 % (0-5); Neutrophil # 7.85 X10^3/uL (2.7-7.7); Neutrophil % 83.1 % (47-70); Platelet Count 133 K/mm3 (150-450); RBC Distribution Width CV 17.9 % (11.6-14.6); RBC Distribution Width SD 55.9 fl (35.1-43.9); White Blood Count 9.4 K/mm3 (4.4-11.0)
[2020-07-09 17:54] LABS: D-Dimer Quantitative (DVT/PE) 1.38 FEU/ug/m (0.27-0.49)
[2020-07-09 17:58] LABS: BNP,B-Type NATRIURETIC PEPTIDE 482.6 pg/mL (0-100)
[2020-07-09 17:59] LABS: Anion Gap 12 (5-15); BUN 132 mg/dL (7-18); BUN/Creat Ratio 29.9 RATIO (10-20); Calcium,Total 8.6 mg/dL (8.5-10.1); Chloride 109 mmol/L (98-107); Creatinine, Serum 4.41 mg/dL (0.70-1.30); EST Glomerular Filtration Rate 14 mL/min (>60); Est Glom Filt Rate - Afr Amer 17 mL/min (>60); Estimated Creatinine Clearance 15.81 ml/min; Glucose 110 mg/dL (74-106); Potassium 4.5 mmol/L (3.5-5.1); Sodium Level 141 mmol/L (136-145)
--- NOTE | 2020-07-09 18:20 | ED.VISSUMM ---
- ER Visit Summary Date of Service: 07/09/20 Chief Complaint: [Shortness of breath] History of Present Illness: The patient is a 70 M [does the emergency department complaint of shortness of breath that has had progressively worsening over the last week. Patient states that he was seen in the emergency department for similar complaint a week ago when he was discharged home. Patient tells me that June 10 he had a TAVR procedure. Patient states that his legs are swollen and cannot seem to get the weight off despite taking diuretics. Complains of exertional dyspnea. He describes intermittent chest discomfort. Patient has history of coronary artery disease, CHF, diabetes, hypertension, COPD, chronic kidney disease. Patient normally on 2.5 L of O2 at home.] Physical Examination: [HEENT-PERRLA, EOMI. Cranial nerves II through XII grossly intact. TMs clear. Mucous membranes moist. No adenopathy. Cardiovascular-regular rate and rhythm. Patient has a 1 out of 6 systolic ejection murmur noted. Lungs-good aeration. Patient has faint rales in the bases. No accessory muscle use or retractions. Abdomen-normoactive bowel sounds, soft, nontender, no rebound or rigidity, no peritoneal signs. Extremities-intact ?4, normal range of motion, normal pulses, atraumatic. Patient has +2 edema both lower extremities that symmetric.] Test Results: [EKG obtained arrival shows sinus rhythm with a ventricular rate of 64 bpm with some nonspecific ST changes. CBC with differential showed a count of 9.4, hemoglobin 10, hematocrit 35, platelets 135. Chemistries unremarkable. CO2 was 20 BUN 132, creatinine 4.4, glucose 110. Troponin less than 0.015. BNP was 482. D-dimer was elevated 1.38.] Chest x-ray obtained 1 view interpreted by myself as cardiomegaly and mild pulmonary congestion. Official radiology report pending. We will not be able to obtain CTA of the chest given patient's kidney function. Patient states that he cannot be anticoagulated because of bleeding issues he has had in the past. I do suspect likely his symptoms are caused by worsening renal function and CHF. Emergency Department Course and Treatment: [The line established on arrival. Patient placed on a client relations associate.] Treatment Plan: [Admit] Disposition: [Admit] Impression: [Acute kidney injury/worsening renal failure CHF] This note was generated with Dragon dictation software. It may contain incorrect words, spelling, and punctuation that were not noted in review of the chart prior to signing ED Disposition - Plan for ED Patient: Referrals: Davon Lemus MD [Primary Care Provider] -
--- NOTE | 2020-07-09 18:38 | HP.PCM_ITS ---
Problem List (1) Acute exacerbation of CHF (congestive heart failure) Status: Acute Qualifiers: Heart failure type: unspecified Qualified Code(s): I50.9 - Heart failure, unspecified (2) Acute kidney injury superimposed on CKD Status: Acute (3) Elevated d-dimer Status: Acute (4) Status post transcatheter aortic valve replacement Status: Acute (5) Thrombocytopenia Status: Acute (6) Chronic anemia Status: Chronic (7) Anxiety and depression Status: Chronic (8) Chronic obstructive pulmonary disease (COPD) Status: Chronic Qualifiers: COPD type: unspecified COPD Qualified Code(s): J44.9 - Chronic obstructive pulmonary disease, unspecified (9) Chronic respiratory failure with hypoxia Status: Chronic (10) Diabetes mellitus, type II Status: Chronic Qualifiers: Diabetes mellitus buttermaker helper insulin use: with buttermaker helper use Diabetes mellitus complication status: with other specified complication Qualified Code(s): E11.69 - Type 2 diabetes mellitus with other specified complication; Z79.4 - correction (current) use of insulin (11) Sleep apnea Status: Chronic Qualifiers: Sleep apnea type: unspecified type Qualified Code(s): G47.30 - Sleep apnea, unspecified (12) Pure hypercholesterolemia Status: Chronic (13) Essential hypertension Status: Chronic (14) Nonrheumatic aortic (valve) stenosis Status: Chronic (15) Atherosclerotic heart disease of [place] coronary artery without angina pectoris Status: Chronic Qualifiers: [place] vs. transplanted heart: [place] heart Qualified Code(s): I25.10 - Atherosclerotic heart disease of [place] coronary artery without angina pectoris Comment: S/P multivessel PTCA/stent and subsequent CABG with SVG to LCx, RCA and diagonal branch with subsequent SVG graft closure to the LCx and diagonal branch; (16) S/P CABG x 3 Status: Chronic Comment: CABG-SVG to diagonal, SVG to obtuse marginal & SVG to PDA 07/12; (17) GERD (gastroesophageal reflux disease) Status: Chronic Qualifiers: Esophagitis presence: esophagitis presence not specified Qualified Code(s): K21.9 - Gastro-esophageal reflux disease without esophagitis (18) History of GI bleed Status: Chronic History of Present Illness Date of Admission: 07/09/20 Chief Complaint: Dyspnea, worsened edema. The patient is a 70 y/o M w/ PMHx: CAD s/p CABG and PCI, Chronic COPD with Chronic Hypoxic Respiratory Failure, HTN, HLD, Hx GI bleed, DASHA, Diabetes mellitus type II, Obesity, Valvular Heart Disease s/p AVR [facility] 06/10/20 TAVR, Anxiety and Depression, Chronic anemia with ongoing dyspnea x 2 weeks, weight gain, orthopnea with BL LE ankle edema. He notes that following his TAVR initially he had felt amazing with no dyspnea, able to be more active until he starting worsening over the last 2 weeks. He denies any chest pain, chest pressure. Patient does state that he had significant renal disease which had worsened but eventually improved and he only required transient dialysis. He does voiced concern that he may need dialysis again given worsened renal function currently. Work-up in the ED included T 97.7, heart 67, BP 140/72, respiratory rate 24, 94% on 3 L nasal cannula, CBC with WC 9.4, hemoglobin 10.4, platelet 133 with left shift and lymphopenia, D-dimer 1.38, BMP with chloride 109, conduct set 20, BUN/creatinine 132/4.41, glucose 110, troponin less than 0.015, BNP 482.6 with most recent admission BNP on 06/30/2020 374.4 chest x-ray with no acute cardiopulmonary findings, EKG with sinus rhythm with nonspecific ST changes with no acute evidence of ischemia. Past Medical History Past Medical History (Chronic Problems): Chronic Problems (Last Reviewed 02/04/20 @ 10:59 by Pili May) Chronic anemia (Chronic) Anxiety and depression (Chronic) Chronic obstructive pulmonary disease (COPD) (Chronic) Chronic respiratory failure with hypoxia (Chronic) Diabetes mellitus, type II (Chronic) History of GI bleed (Chronic) Chronic kidney disease (Chronic) Dyspnea on exertion (Chronic) Kidney disease, chronic, stage IV (GFR 15-29 ml/min) (Chronic) COPD (chronic obstructive pulmonary disease) (Chronic) Sleep apnea (Chronic) Nephrotic range proteinuria (Chronic) Pure hypercholesterolemia (Chronic) Type 2 diabetes mellitus (Chronic) Presence of stent in coronary artery (Chronic ~08/25/14) 07/18/10, PTCA/stent to mid to distal LCx artery; 08/17/10 PTCA/stent to proximal to mid RCA; PTCA of distal RCA with DEX September 2010; PTCA with EULALIO to mid distal AV groove left CFX 08/13 Essential hypertension (Chronic) Nonrheumatic aortic (valve) stenosis (Chronic) Nonspecific abnormal unspecified cardiovascular function study (Chronic) Diastolic dysfunction (Chronic) Other prison (current) drug therapy (Chronic) Atherosclerotic heart disease of [place] coronary artery without angina pectoris (Chronic) S/P multivessel PTCA/stent and subsequent CABG with SVG to LCx, RCA and diagonal branch with subsequent SVG graft closure to the LCx and diagonal branch; S/P CABG x 3 (Chronic ~07/21/12) CABG-SVG to diagonal, SVG to obtuse marginal & SVG to PDA 07/12; GERD (gastroesophageal reflux disease) (Chronic) Anxiety (Chronic) Medical History: Medical History (Last Reviewed 02/04/20 @ 10:59 by Pili May) COPD (chronic obstructive pulmonary disease) (Chronic) J44.9 Sleep apnea (Chronic) G47.30 Pure hypercholesterolemia (Chronic) E78.00 Type 2 diabetes mellitus (Chronic) E11.9 Presence of stent in coronary artery (Chronic) Onset Date: ~08/25/14 Z95.5 07/18/10, PTCA/stent to mid to distal LCx artery; 08/17/10 PTCA/stent to proximal to mid RCA; PTCA of distal RCA with DEX September 2010; PTCA with EULALIO to mid distal AV groove left CFX 08/13 Essential hypertension (Chronic) I10 Nonrheumatic aortic (valve) stenosis (Chronic) I35.0 Diastolic dysfunction (Chronic) I51.9 Atherosclerotic heart disease of [place] coronary artery without angina pectoris (Chronic) I25.10 S/P multivessel PTCA/stent and subsequent CABG with SVG to LCx, RCA and diagonal branch with subsequent SVG graft closure to the LCx and diagonal branch; GI bleed Onset Date: ~10/2019 K92.2 Aortic valve disease (Inactive) I35.9 Coronary atherosclerosis of [place] coronary artery (Inactive) I25.10 Diabetes mellitus (Inactive) E11.9 HTN (hypertension) (Inactive) I10 Allergies carvedilol [From Coreg] Allergy (Severe, Verified 02/04/20 10:55) vomiting valsartan [From Diovan] Allergy (Severe, Verified 02/04/20 10:55) Possible angioedema, throat swelling sertraline HCl [From Zoloft] Allergy (Verified 02/04/20 10:55) Unknown makes me mean bupropion HCl [From Wellbutrin] Adverse Reaction (Verified 02/04/20 10:55) gets mean citalopram Adverse Reaction (Verified 02/04/20 10:55) Other gabapentin Adverse Reaction (Verified 02/04/20 10:55) Other Home Medications: Ambulatory Orders Medication Instructions Recorded Nitroglycerin (INPATIENT USE) 0.4 mg SUBLINGUAL Q5M PRN 10/27/13 [Nitrostat] berberine-herbal comb no.18 capsule 2 cap PO BID cap 02/24/18 Allopurinol 100 mg PO DAILY 02/25/19 Astaxanthin 4 mg PO DAILY 02/25/19 Fluoxetine HCl 40 mg PO DAILY 02/25/19 Insulin Aspart [Novolog Flexpen] 36 units SUBCUT TIDCM 02/25/19 Ubidecarenone [Co Q-10] 400 mg PO BID 11/10/19 fenofibrate 160 mg tablet 160 mg PO DAILY 02/04/20 insulin glargine 100 unit/mL (3 50 unit SUBCUT BID ml 02/04/20 mL) subcutaneous pen furosemide 80 mg tablet 80 mg PO BID #180 tab 05/16/20 isosorbide mononitrate 30 mg 30 mg PO DAILY #90 tab 05/16/20 tablet,extended release 24 hr metoprolol tartrate 50 mg tablet 50 mg PO BID #180 tab 05/20/20 amlodipine 5 mg tablet 5 mg PO BID #180 tab 06/03/20 Aspirin E.C. [Ecotrin] 81 mg PO DAILY@0800 06/30/20 Pantoprazole Sodium [Protonix] 40 mg PO DAILY 06/30/20 Metolazone [Zaroxolyn] 5 mg PO DAILY 07/09/20 Surgical History: Surgical History (Last Reviewed 02/04/20 @ 10:59 by Pili May) S/P CABG x 3 (Chronic) Onset Date: ~07/21/12 Z95.1 CABG-SVG to diagonal, SVG to obtuse marginal & SVG to PDA 07/12; History of colonoscopy Onset Date: ~12/2019 Z98.890 History of esophagogastroduodenoscopy (EGD) Onset Date: ~12/2019 Z98.890 History of bilateral knee replacement Z96.653 History of carpal tunnel repair Z98.890 History of cholecystectomy Z90.49 History of partial colectomy Z90.49 History of repair of rotator cuff Z98.890 Presence of coronary angioplasty implant and graft Z95.5 07/18/10, PTCA/stent to mid to distal LCx artery; 08/17/10 PTCA/stent to proximal to mid RCA; PTCA of distal RCA with DEX September 2010; PTCA with EULALIO to mid distal AV groove left CFX 08/13 S/P PTCA (percutaneous transluminal coronary angioplasty) (Inactive) Z98.61 07/18/10, PTCA/stent to mid to distal LCx artery; 08/17/10 PTCA/stent to proximal to mid RCA; PTCA of distal RCA with DEX September 2010; PTCA with EULALIO to mid distal AV groove left CFX 08/13 Surgical History: angioplasty, arthroscopy, knee, coronary bypass surgery, - - Patient status post CABG x3, serial PCI, bilateral total knee replacement, rotator cuff repair, partial colectomy, cholecystectomy, carpal tunnel surgery, recent TAVR 05/2020. Psychiatric History: No pertinent psych hx Lives: Spouse/ Significant Other Smoking Status: Former smoker Tobacco Use: Non-smoker Alcohol: None Drugs: None - *Family History Maternal Family History: Family History (Last Reviewed 02/04/20 @ 10:59 by Pili May) Father CAD (coronary artery disease) Afib Aortic valve replaced Mother Cancer Son Lupus History Items: Cancer Paternal Family History: Family History (Last Reviewed 02/04/20 @ 10:59 by Pili May) Father CAD (coronary artery disease) Afib Aortic valve replaced Mother Cancer Son Lupus History Items: High Cholesterol, Heart Disease - Atrial fibrillation; valvular heart disease status post aVR; , Hypertension Review of Systems Constitutional: Reports: Malaise, Weakness, Fatigue. Denies: Chills, Fever, Weight Change HEENT: Denies: Head Aches, Sinus Congestion, Sinus Drainage Cardiovascular: Reports: Edema, Orthopnea. Denies: Chest Pain, Chest Pressure, Chest Tightness, Palpitations Respiratory: Reports: Shortness of Breath, Shortness of breath at rest, Shortness of breath upon exertion. Denies: Cough, Sputum production, Wheezing Gastrointestinal: Denies: Abdominal Pain, Nausea, Vomiting Genitourinary: Denies: Dysuria Musculoskeletal: Reports: Joint Pain. Denies: Joint Tenderness Skin: Denies: Rash, Wounds Neurological: Denies: Numbness, Tingling, Focal weakness Psychiatric: Reports: Anxiety, Depression. Denies: Homicidal Ideations, Suicidal Ideations Hematologic/ Lymphatic: Reports: Anemia, Easy Bruising, Easy Bleeding VTE Information - Inpt Only VTE Present on Admission: No VTE Mechan Device Prophylaxis: SCD's VTE Pharm Prophylaxis ordered?: No Reason prophylaxis not ordered:: Medical Contraindication - Thrombocytopenia, severe GI bleed hx Subjective: Patient seated upright in ED bed, fatigued appearing, mild increased respiratory rate, no obvious respiratory distress but uncomfortable. Objective: Physical Examination: General: awake, alert, oriented x 3 and cooperative, seated upright in the ED bed, fatigued appearing, mild increased respiratory rate, no evidence of any significant distress. Skin: normal color, turgor, no icterus, cyanosis except noted bilateral lower extremity mild venous stasis changes. HEENT: AT/NC, EOMI, PERRLA, mildly dry MM, no carotid bruits, + JVD noted. Lungs: Diminished breath sounds, greater bases, mild rales bases, mild increased respiratory rate, no respiratory distress noted, no ronchi or wheezing. Heart: Regular rate and rhythm; no gallop, rub audible. Abdomen: soft, obese, NTTP, ND, normal BS, no obvious HSM. Extremities: no cyanosis or clubbing, bilateral lower extremity ankle to mid wyman pitting edema. Neurological: patient awake, alert, oriented as noted; cognitive function intact; pupils equally reactive to light and accomodation; cranial nerves II-XII grossly normal, moving all 4 extremities, no focal deficits, strength severely globally [place] secondary to acute presentation. Psychiatric: affect appears fatigued, mildly tearful, no acute evidence of depressive, expressing some anxiety feelings but also voicing that if at this time he is amenable to this and feels as though he has had a great life. - Physical Exam Vitals/I&O's: Vital Signs Temp Pulse Resp BP Pulse Ox 97.7 F L 63 20 H 145/77 H 93 07/09/20 17:18 07/09/20 17:44 07/09/20 17:44 07/09/20 17:44 07/09/20 17:44 Oxygen Flow Rate (L/min) 3 Oxygen Delivery Method Nasal Cannula Weight: 261 lb 3.964 oz Body Mass Index (BMI) 38.5 Finger Stick Blood Glucose 269 Laboratory Results 07/09/20 17:25: WBC 9.4, RBC 4.00 L, Hgb 10.4 L, Hct 34.7 L, MCV 86.8, MCH 26.0 L, MCHC 30.0 L, RDW Std Deviation 55.9 H, RDW Coeff of Judi 17.9 H, Plt Count 133 L, MPV 9.5, Immature Gran % (Auto) 1.400 H, Neut % (Auto) 83.1 H, Lymph % (Auto) 6.8 L, [place] % (Auto) 6.9, Eos % (Auto) 1.6, Baso % (Auto) 0.2, Absolute Neuts (auto) 7.9 H, Absolute Lymphs (auto) 0.64 L, Nucleated RBC % 0 07/09/20 17:25: D-Dimer Quant (PE/DVT) 1.38 H* 07/09/20 17:25: Sodium 141, Potassium 4.5, Chloride 109 H, Carbon Dioxide 20.0 L , Anion Gap 12, BUN 132 H*, Creatinine 4.41 H, Estim Creat Clear Calc 15.81, Est GFR (MDRD) Af Amer 17 L, Est GFR (MDRD) Non-Af 14 L, BUN/Creatinine Ratio 29.9 H, Glucose 110 H, Calcium 8.6, Troponin I < 0.015 07/09/20 17:25: B-Natriuretic Peptide 482.6 H Assessment/Plan All Active Problems (Last Reviewed 02/04/20 @ 10:59 by Pili May) Acute exacerbation of CHF (congestive heart failure) (Acute) Acute kidney injury superimposed on CKD (Acute) Elevated d-dimer (Acute) Status post transcatheter aortic valve replacement (Acute) Thrombocytopenia (Acute) Upper GI bleed (Acute) Anemia (Acute) The patient is a 70 y/o M w/ PMHx: CAD s/p CABG and PCI, Chronic COPD with Chronic Hypoxic Respiratory Failure, HTN, HLD, Hx GI bleed, DASHA, Diabetes mellitus type II, Obesity, Valvular Heart Disease s/p AVR [facility] 06/10/20 TAVR, Anxiety and Depression, Chronic anemia with ongoing dyspnea x 2 weeks, weight gain, orthopnea with BL LE ankle edema. 1. Suspected Acute Decompensated CHF, Unclear type with worsening Hypoxia, complicated by recent TAVR #4: Will admit to PCU, maintain on cardiac telemetry, obtain cardiac enzyme series, obtain serial EKGs, initiate IV lasix diuresis cautiously given #2, monitor I/Os, maintain on intake restriction, continue medical therapy w/ asa, BB, not on ACEI/ARB secondary to CKD likely. Will obtain TSH and magnesium level. Will request ECHO especially given recent TAVR. Cardiology consulted, pending. PRN morphine to decrease afterload, continue oxygen supplementation, if necessary will position w/ upright position with legs off bed to decrease preload. 2. Acute kidney injury on CKD stage IV: Secondary to #1, overload associated with CHF exacerbation. Admission BUN/Cr 132/4.41, prior baseline creatinine noted to be primarily 3.0-3.5, most recently 06/30/[address] Rodrigez, will continue IV diuresis as noted above but if worsening may require repeat HD which he has required prior. 3. Abnormal D-Dimer: Confounded given underlying worsening renal function, not anticoagulant candidate, will obtain BL LE duplex stat US. 4. Recent TAVR, Valvular Heart Disease: s/p recent 06/10/20 TAVR at , will obtain ECHO to assure appropriately placed as notable improved symptomatic per his report following intervention but worsening over the last several weeks. 5. Thrombocytopenia, new onset: Admission platelet 133, prior baseline appears normal with most recent 06/30/2020 164, will repeat CBC in AM. 6. Chronic normocytic anemia: Admission hemoglobin 10.4, prior baseline had been primarily 8 but most recently 03/05/2020 2010.7 and 07/01/2019 2110, stable, continue to trend. 7. CAD: Patient status post multivessel PTCA/stent and subsequent CABG with SVG to LCx, RCA and diagonal branch with subsequent SVG graft closure to the LCx and diagonal branch 8. Chronic COPD w/ Chronic Hypoxic Respiratory Failure: Will maintain on oxygen with wean as tolerated to home oxygen supplementation, continue ATC duonebs, PRN albuterol, HOB, IS parameters. 9. Hx GI Bleed: Patient with bleed history, not anticoagulant candidate as a result, continue PPI. 10. Hypertension: Continue home regimen including amlodipine, isosorbide, metoprolol, IV Lasix as noted above with hold temporarily on metolazone, PRN Hydralazine. 11. Hyperlipidemia: Not on statin, continue fenofibrate, AM FLP. 12. Anxiety and depression: We will continue patient home fluoxetine regimen. Patient during evaluation was tearful as he has been concerned that he is potentially going to secondary to complications with his recent TAVR. No obvious SI but does state that if he needs to pass he wants to pass naturally and voices repeatedly that he is very grateful to his for introducing him to God. 13. Diabetes mellitus type II: Hold oral home regimen, continue home insulin regimen, ADA diet, accu checks w/ ISS. 14. GERD: Continue patient home PPI. 15. DVT Prophylaxis: SCDs, hold chemoprophylaxis given mild thrombocytopenia. 16. CODE status: Patient [id number] is his who is present and living will is currently in place. Discussed CODE status at length including difference between FULL code, DNR-CCA and DNR-CC status. Following discussions about the differences in these status, requested DNR-CCA, no intubation status. Advanced Care Planning Face to Face Time: 16 minutes. Inpatient E&M: 89895 Init Hosp L3 Procedures: 67520 Advncd Care Plan 30 Min
--- NOTE | 2020-07-09 19:51 | ECHOCS_ITS ---
Reason For Study: CHF Procedure This was a 2D Doppler, Color Flow transthoracic echocardiogram. The study was technically difficult. Contrast injection was performed. Exam performed portable in patient room. Left Ventricle Based upon the 2D echocardiographic and contrast enhanced images obtained there appears to be grossly normal left ventricular size, wall motion, and systolic function. The estimated ejection fraction is 60 %. Right Ventricle Normal RV size. Normal systolic function. Atria The left atrium is moderately enlarged. The right atrium is mildly enlarged. No doppler evidence for ASD. Mitral Valve There is moderate to severe mitral annular calcification. Extension of the mitral annular calcification onto the base of the posterior mitral valve leaflet. Mild (1+) mitral valve insufficiency. Tricuspid Valve The tricuspid valve is not well visualized. Trivial tricuspid valve insufficiency. Right ventricular systolic pressure estimated to be 43 mmHg. Aortic Valve Stable appearing bioprosthetic aortic valve apparatus. Pulmonic Valve The pulmonic valve is not well visualized. Trivial pulmonic valve insufficiency. Great Vessels The aortic root is not well visualized. Pericardium/Pleural No pericardial effusion. Medication Diluted definity 2ml given slow IV push to enhance endocardial definition. MMode/2D Measurements & Calculations LVIDd: 5.4 cm IVSd: 1.6 cm LVOT diam: 2.1 cm LVIDs: 3.6 cm LVPWd: 1.2 cm FS: 33.6 % LVOT area: 3.3 cm2 LA dimension: 4.5 cm LAV(MOD-bp): 88.6 ml LA A4 area: 29.0 cm2 LAV(MOD-bp) Indexed: 38.3 ml/m2 LAV(MOD-sp2): 74.1 ml LAV(MOD-sp4): 94.6 ml RA A4 area: 26.7 cm2 Time Measurements MV dec time: 0.22 sec Doppler Measurements & Calculations MV E max jhon: 142.0 cm/sec Lat Peak E' Jhon: 7.3 cm/sec Med Peak E' Jhon: 6.1 cm/sec MV A max jhon: 98.9 cm/sec E/E' lat: 19.5 E/E' med: 23.4 MV E/A: 1.4 MV V2 max: 181.9 cm/sec MV P1/2t max jhon: 181.9 cm/sec Ao V2 max: 226.2 cm/sec MV max P.2 mmHg MV P1/2t: 99.8 msec Ao max P.5 mmHg MV V2 mean: 92.9 cm/sec MV dec slope: 533.7 cm/sec2 Ao V2 mean: 140.1 cm/sec MV mean P.2 mmHg Ao mean P.3 mmHg MV V2 VTI: 56.5 cm MVA(P1/2t): 2.2 cm2 Ao V2 VTI: 52.2 cm MVA(VTI): 1.6 cm2 LUIS ARMANDO(I,D): 1.7 cm2 LUIS ARMANDO(V,D): 1.7 cm2 LV V1 max: 114.4 cm/sec SV(LVOT): 90.9 ml PA V2 max: 109.1 cm/sec LV V1 max P.3 mmHg LV V1 mean P.9 mmHg LV V1 mean: 79.4 cm/sec LV V1 VTI: 27.3 cm TR max jhon: 317.4 cm/sec TR max P.3 mmHg ECHO/Echo Complete W/ Contrast Interpretation Summary The study was technically difficult. Contrast injection was performed. Based upon the 2D echocardiographic and contrast enhanced images obtained there appears to be grossly normal left ventricular size, wall motion, and systolic function. The estimated ejection fraction is 60 %. The left atrium is moderately enlarged. The right atrium is mildly enlarged. There is moderate to severe mitral annular calcification. Extension of the mitral annular calcification onto the base of the posterior mi tral valve leaflet. Mild (1+) mitral valve insufficiency. Trivial tricuspid valve insufficiency. Stable appearing bioprosthetic aortic valve apparatus. Trivial pulmonic valve insufficiency. Right ventricular systolic pressure estimated to be 43 mmHg. Transmitral diastolic flow velocities suggest diastolic dysfunction (pseudonorm al pattern). Ordering Physician: Virginia Bustamante Referring Physician: Davon Lemus M.D. Performed By: Eric Martinez RCS
--- NOTE | 2020-07-09 19:51 | VDLE_ITS ---
Reason For Study: PAIN RIGHT LEFT CFV is compressible, spontaneous, phasic, CFV is compressible, spontaneous, phasic, competent and demonstrates normal competent, and demonstrates normal augmentation. augmentation. FV is compressible, spontaneous, phasic, FV is compressible, spontaneous, phasic, competent and demonstrates normal competent and demonstrates normal augmentation. augmentation. POP V is compressible, spontaneous, phasic, POP V is compressible, spontaneous, phasic, competent and demonstrates normal competent and demonstrates normal augmentation. augmentation. T/P Trunk is compressible. T/P Trunk is compressible. PTV is compressible. PTV is compressible. RT PerV is compressible. LT PerV is compressible. GSV has been harvested bilaterally for CABG. Procedure Exam performed portable in patient room. A preliminary report was called and/or faxed to [facility]. VL/Venous Duplex US - Rohith Extrem Interpretation Summary Deep veins of the lower extremities are bilaterally patent and compressible seg mentally. There is no evidence of deep vein thrombosis on either side. Valvular competence appears in tact within the proximal deep venous systems bilaterally. The great saphenous veins are absent bilaterally, having been previously harvested. Ordering Physician: Virginia Bustamante Referring Physician: Davon Lemus M.D. Performed By: Lisha Nova, MELISA, RVT
[2020-07-09 20:06] LABS: Magnesium 2.7 mg/dL (1.6-2.6)
[2020-07-09] MEDS: amLODIPine 5 MG Tablet PO (20:48)
[2020-07-09] MEDS: Furosemide 100 MG/10 ML Vial 60 MG IV (20:48)
[2020-07-09] MEDS: Metoprolol Tartrate 50 MG Tablet PO (20:48)
[2020-07-09 22:21] LABS: Bedside Glucose 102 mg/dL (70-110)
[2020-07-10] VITALS (16 sets, daily range): BP systolic 123–140; BP diastolic 55–77; PULSE 63–72; RESP 12–20; TEMP 36.5–36.7; O2SAT 94–96
[2020-07-10] MEDS: Furosemide 100 MG/10 ML Vial 60 MG IV ×3 (05:00→21:05)
--- NOTE | 2020-07-10 05:55 | EKG12_ITS ---
Test Reason : AM EKG Blood Pressure : / mmHG Vent. Rate : 066 BPM Atrial Rate : 066 BPM P-R Int : 170 ms QRS Dur : 102 ms QT Int : 440 ms P-R-T Axes : 051 084 177 degrees QTc Int : 461 ms Normal sinus rhythm Nonspecific T wave abnormality Abnormal ECG When compared with ECG of 09-JUL-2020 17:27, MANUAL COMPARISON REQUIRED, DATA IS UNCONFIRMED Confirmed by ANTHONY BACK, JACKIE ([id number]), dictionary editor ROCÍO NORTON ([id number]) on 07/13/2020 1:23:57 PM Referred By: VIDA Confirmed By:JACKIE CRUZ MD
[2020-07-10 06:34] LABS: Absolute Lymphocyte Count 0.54 X10^3/uL (0.83-4.51); Absolute Neutrophil Count 6.5 X10^3/uL (2.0-7.7); Basophil# 0.02 X10^3/uL; Basophil% 0.2 % (0-1); Eosinophil# 0.21 X10^3/uL; Eosinophils% 2.6 % (0-5); Hematocrit 31.9 % (40-54); Hemoglobin 9.5 g/dL (13.0-16.5); Lymphocyte # 0.54 X10^3/ul (4.0); Lymphocyte % 6.7 % (19-41); Mean Corp Hgb Conc 29.8 g/dL (32-36); Mean Corpuscular Hgb 26.1 pg (27.0-32.0); Mean Corpuscular Volume 87.6 fL (80-94); Mean Platelet Vol. 10.3 fl (6.2-12.0); Monocyte% 7.5 % (0-10); NRBC Flagged by Analyzer 0.2 % (0-5); Neutrophil # 6.53 X10^3/uL (2.7-7.7); Neutrophil % 81.3 % (47-70); POSITIVE DIFFERENTIAL YES; Platelet Count 134 K/mm3 (150-450); Red Blood Count 3.64 M/mm3 (4.6-6.2)
[2020-07-10 06:35] LABS: Differential Indicated SCAN CRITERIA MET
[2020-07-10 07:14] LABS: ALB/GLOB Ratio 0.7 RATIO (0.9-2.4); AST(SGOT) 11 U/L (15-37); Alanine Aminotransfer ALT/SGPT 19 U/L (16-61); Albumin, Serum 3.2 g/dL (3.2-5.0); Alkaline Phosphatase 106 U/L (45-117); Anion Gap 10 (5-15); BUN 137 mg/dL (7-18); BUN/Creat Ratio 32.6 RATIO (10-20); Calcium,Total 8.5 mg/dL (8.5-10.1); Chloride 109 mmol/L (98-107); Cholesterol 129 mg/dL (200); EST Glomerular Filtration Rate 15 mL/min (>60); Est Glom Filt Rate - Afr Amer 18 mL/min (>60); Globulin 4.4 g/dL (2.2-4.2); Glucose 154 mg/dL (74-106); High Density Lipoprotein 30 mg/dL; Potassium 4.5 mmol/L (3.5-5.1); Protein, Total 7.6 g/dL (6.4-8.2); Sodium Level 139 mmol/L (136-145); T4 Free Direct 0.94 ng/dL (0.76-1.46); Thyroid Stim Hormone (TSH) 4.36 uIU/mL (0.358-3.74); Triglycerides 138 mg/dL; Very Low Density Lipoprotein 28 mg/dL (5-40)
[2020-07-10] MEDS: Ipratropium/Albuterol Sulfate 3 ML AMPUL.NEB INHALATION ×3 (07:39→19:34)
[2020-07-10] MEDS: Insulin Lispro 100 UNIT/ML INSULN.PEN 36 UNIT SC ×2 (08:11→17:06)
[2020-07-10 08:25] LABS: Bedside Glucose 139 mg/dL (70-110)
--- NOTE | 2020-07-10 10:10 | PN_ITS ---
Patient Problems: Active and Suspected Problems (Last Reviewed 02/04/20 @ 10:59 by Pili May) Acute exacerbation of CHF (congestive heart failure) (Acute) Acute kidney injury superimposed on CKD (Acute) Elevated d-dimer (Acute) Status post transcatheter aortic valve replacement (Acute) Thrombocytopenia (Acute) Reason for Visit: Follow-up for CHF exacerbation and acute kidney injury Objective: Seen and examined. Patient admitted yesterday with progressive worsening of shortness of breath for 2 week prior to admission. Patient had TAVR procedure on June 10 and noticed his legs are swollen despite being on diuretics. On home oxygen 2.5 L. Blood pressure and heart rate controlled Physical exam General: Alert, Oriented x3, Cooperative HEENT: Atraumatic, PERRLA, EOMI, Normocephalic Oral: No Gingival or Mucosal Lesions/ Ulcerations Neck: Supple, No JVD, Negative Carotid Bruits Lungs: Air entry diminished in bilateral lung bases. Bilateral lung bases crackles present. Mild hypoxia Cardiovascular: Regular rate, Regular Rhythm, Normal S1, Normal S2, click present over aortic valve, TAVR Abdomen: Bowel Sounds Present, Soft, Non Tender, abdominal distention possible ascites : No renal angle tenderness. No suprapubic tenderness. Extremities: Bilateral lower extremity up to thigh edema, Capillary Refill Less than 3 Seconds Skin: No rashes, No breakdown Musculoskeletal: No Tenderness to Palpation of Joints or Extremities Neurological: Cranial nerves II-XII grossly intact, Deep Tendon Reflexes 2+/4 and Symmetrical, Neuro grossly intact Psych/Mental Status: Normal Affect, Appropriate. Vitals/I&O's: Vital Signs Temp Pulse Resp BP Pulse Ox 97.7 F L 72 18 135/71 H 96 07/10/20 04:45 07/10/20 08:14 07/10/20 08:14 07/10/20 04:45 07/10/20 08:13 Oxygen Flow Rate (L/min) 4 Oxygen Delivery Method Nasal Cannula Weight: 257 lb 7.999 oz Body Mass Index (BMI) 38.3 Finger Stick Blood Glucose 269 Intake and Output for Last 24 Hours 07/08/20 07/09/20 07/10/20 23:59 23:59 23:59 Intake Total 240 / 240 Output Total 375 / 375 685 / 685 Balance -135 / -135 -685 / -685 Laboratory Results 07/09/20 17:25: WBC 9.4, RBC 4.00 L, Hgb 10.4 L, Hct 34.7 L, MCV 86.8, MCH 26.0 L, MCHC 30.0 L, RDW Std Deviation 55.9 H, RDW Coeff of Judi 17.9 H, Plt Count 133 L, MPV 9.5, Immature Gran % (Auto) 1.400 H, Neut % (Auto) 83.1 H, Lymph % (Auto) 6.8 L, Patrick % (Auto) 6.9, Eos % (Auto) 1.6, Baso % (Auto) 0.2, Absolute Neuts (auto) 7.9 H, Absolute Lymphs (auto) 0.64 L, Nucleated RBC % 0 07/09/20 17:25: D-Dimer Quant (PE/DVT) 1.38 H* 07/09/20 17:25: Sodium 141, Potassium 4.5, Chloride 109 H, Carbon Dioxide 20.0 L , Anion Gap 12, BUN 132 H*, Creatinine 4.41 H, Estim Creat Clear Calc 15.81, Est GFR (MDRD) Af Amer 17 L, Est GFR (MDRD) Non-Af 14 L, BUN/Creatinine Ratio 29.9 H , Glucose 110 H, Calcium 8.6, Troponin I < 0.015 07/09/20 17:25: B-Natriuretic Peptide 482.6 H 07/09/20 17:25: Magnesium 2.7 H 07/09/20 20:08: POC Glucose 102 07/09/20 20:32: Troponin I < 0.015 07/09/20 23:30: Troponin I < 0.015 07/10/20 05:15: WBC 8.0, RBC 3.64 L, Hgb 9.5 L, Hct 31.9 L, MCV 87.6, MCH 26.1 L , MCHC 29.8 L, RDW Std Deviation 57.0 H, RDW Coeff of Judi 18.0 H, Plt Count 134 L, MPV 10.3, Immature Gran % (Auto) 1.700 H, Neut % (Auto) 81.3 H, Lymph % (A uto) 6.7 L, Patrick % (Auto) 7.5, Eos % (Auto) 2.6, Baso % (Auto) 0.2, Absolute Neuts (auto) 6.5, Absolute Lymphs (auto) 0.54 L, Nucleated RBC % 0.2 07/10/20 05:15: Sodium 139, Potassium 4.5, Chloride 109 H, Carbon Dioxide 20.0 L , Anion Gap 10, BUN 137 H*, Creatinine 4.20 H, Estim Creat Clear Calc 16.60, Est GFR (MDRD) Af Amer 18 L, Est GFR (MDRD) Non-Af 15 L, BUN/Creatinine Ratio 32.6 H , Glucose 154 H, Calcium 8.5, Total Bilirubin 0.70, AST 11 L, ALT 19, Alkaline Phosphatase 106, Total Protein 7.6, Albumin 3.2, Globulin 4.4 H, Albumin/Globulin Ratio 0.7 L, Triglycerides 138, Cholesterol 129, LDL Cholesterol 71, VLDL Cholesterol 28, HDL Cholesterol 30 L, TSH 4.36 H, Free T4 0.94 07/10/20 08:06: POC Glucose 139 H Current Medications Acetaminophen (Acetaminophen 325 Mg Tablet) 650 mg PO Q6H PRN PRN PRN Reason: Pain Score 1-10/Temp > 100.7 F Al Hydroxide/Mg Hydroxide (Mag Hydrox/Al Hydrox/Simeth 30 Ml Udc) 30 ml PO Q6H PRN PRN PRN Reason: Gastric Burning Albuterol Sulfate (Albuterol 2.5 Mg/3 Ml Vial.Neb.) 2.5 mg INHALATION Q2H PRN PRN PRN Reason: Dyspnea, wheezing Albuterol/Ipratropium (Ipratropium/Albuterol Sulfate 3 Ml Ampul.Neb) 3 ml INHA LATION Q6HWA.RT COUNTS INCLUDE 234 BEDS AT THE [facility] Last Admin: 07/10/20 07:39 Dose: 3 ml Documented by: Allopurinol (Allopurinol 100 Mg Tablet) 100 mg PO DAILY COUNTS INCLUDE 234 BEDS AT THE [facility] Amlodipine Besylate (Amlodipine 5 Mg Tablet) 5 mg PO BID COUNTS INCLUDE 234 BEDS AT THE [facility] Last Admin: 07/09/20 20:48 Dose: 5 mg Documented by: Aspirin (Aspirin E.C. 81 Mg Tablet) 81 mg PO DAILY COUNTS INCLUDE 234 BEDS AT THE [facility] Fluoxetine HCl (Fluoxetine 20 Mg Capsule) 40 mg PO DAILY COUNTS INCLUDE 234 BEDS AT THE [facility] Furosemide (Furosemide 100 Mg/10 Ml Vial) 60 mg IV Q8 COUNTS INCLUDE 234 BEDS AT THE [facility] Last Admin: 07/10/20 05:00 Dose: 60 mg Documented by: Guaifenesin (Guaifenesin 10 Ml Udc (200mg/10ml)) 20 ml PO Q4H PRN PRN PRN Reason: COUGH Hydralazine HCl (Hydralazine 20 Mg/Ml Vial) 10 mg IV Q4H PRN PRN PRN Reason: SBP > 160 Insulin Glargine (Insulin Glargine 100 Units/Ml Pen) 50 units SC 0800,2200 COUNTS INCLUDE 234 BEDS AT THE [facility] Last Admin: 07/10/20 08:14 Dose: 50 units Documented by: Insulin Human Lispro (Insulin Lispro 100 Unit/Ml Insuln.Pen) 36 unit SC TIDCM COUNTS INCLUDE 234 BEDS AT THE [facility] Last Admin: 07/10/20 08:11 Dose: 36 u Documented by: Insulin Human Lispro (Insulin Lispro 100 Unit/Ml Insuln.Pen) 0 unit SC ACHS COUNTS INCLUDE 234 BEDS AT THE [facility]; Protocol Last Admin: 07/10/20 08:11 Dose: Not Given Documented by: Isosorbide Mononitrate (Isosorbide Mononitrate 30 Mg Tablet) 30 mg PO DAILY COUNTS INCLUDE 234 BEDS AT THE [facility] Magnesium Hydroxide (Magnesium Hydroxide 30 Ml Udc) 30 ml PO DAILY PRN PRN PRN Reason: Constipation Melatonin (Melatonin 3 Mg Tablet) 3 mg PO QHS PRN PRN PRN Reason: INSOMNIA Metoprolol Tartrate (Metoprolol Tartrate 50 Mg Tablet) 50 mg PO BID COUNTS INCLUDE 234 BEDS AT THE [facility] Last Admin: 07/09/20 20:48 Dose: 50 mg Documented by: Morphine Sulfate (Morphine 2 Mg/Ml Syringe) 2 mg IV Q3H PRN PRN PRN Reason: Pain Score 6-10 Nitroglycerin (Nitroglycerin (Inpatient Use) 0.4 Mg Tab.Subl) 0.4 mg SL Q5M PRN PRN Reason: CARDIAC/CHEST PAIN Ondansetron HCl (Ondansetron 4 Mg/2 Ml Vial) 4 mg IV Q8H PRN PRN PRN Reason: NAUSEA/VOMITING Oxycodone HCl (Oxycodone 5 Mg Tablet) 5 mg PO Q4H PRN PRN PRN Reason: Pain Score 4-5 Pantoprazole Sodium (Pantoprazole Sodium 40 Mg Tablet) 40 mg PO DAILY COUNTS INCLUDE 234 BEDS AT THE [facility] Prochlorperazine Edisylate (Prochlorperazine 10 Mg/2 Ml Vial) 5 mg IV Q4H PRN PRN PRN Reason: Breakthrough Nausea/Vomiting Psyllium Hydrophilic Mucilloid (Psyllium 1 Packet) 1 packet PO DAILY PRN PRN PRN Reason: Constipation Senna/Docusate Sodium (Senna/Docusate Sodium 1 Tablet) 2 tablet PO BID PRN PRN PRN Reason: Constipation Throat Lozenges (Benzocaine/Menthol 1 Lozenge) 1 lozenge MUCOUS MEM Q2H PRN PRN PRN Reason: SORE THROAT STROKE Vital Signs/Narrative: Vital Signs Pulse Resp Pulse Ox 07/10/20 08:14 72 18 07/10/20 08:13 96 07/10/20 07:52 71 Medical Necessity - Tobacco Use Smoking Status: Former smoker Tobacco Use: Non-smoker Assessment/Plan All Active Problems (Last Reviewed 02/04/20 @ 10:59 by Pili May) Acute exacerbation of CHF (congestive heart failure) (Acute) Acute kidney injury superimposed on CKD (Acute) Elevated d-dimer (Acute) Status post transcatheter aortic valve replacement (Acute) Thrombocytopenia (Acute) Upper GI bleed (Acute) Anemia (Acute) The patient is a 70 y/o male with history of bypass surgery and PCI, COPD and chronic hypoxic respiratory failure on 2 and half liters of oxygen at home admitted with progressive worsening of shortness of breath for 2 weeks, weight gain, orthopnea after TAVR procedure at [facility] on 06/10/2020. Patient stated he was noncompliant to fluid intake. 1. Acute on chronic diastolic heart failure/HFrEF after recent TAVR procedure complicated with EDGARDO: Patient is being admitted in PCU. On IV Lasix and patient feels improvement. Recent echo on January 2020 shows EF reported normal but LV moderately dilated, basal inferior segment severely hypokinetic, LA and RA enlarged. Mild MR with moderate mitral annular calcification, trace TR and severe aortic stenosis with trace to mild AI. Cardiac MRI on 03/20/2020 shows LV at upper limit of normal size, EF 55% patient had cardiac cath on April 28, 2020 and had no additional PCI/graft revascularization. 2D echo ordered for tomorrow a.m. Heart failure core measures including intake and output, fluid restriction less than 1500 mL, daily weight monitoring, kidney and electrolytes monitoring 2. Acute kidney injury on CKD stage IV most probably from CHF exacerbation: Admission BUN/Cr 132/4.41, prior baseline creatinine noted to be primarily 3.0- 3.5, most recently 06/30/2020 3.46. [place] [facility]/aml compliance officer, Dr. Rodrigez, is being consulted. Patient was on temporary dialysis at one point of time. 3. Abnormal D-Dimer: I think it may be inflammatory/reactive due to EDGARDO, CHF exacerbation. But lower extremity venous duplex ordered. No prior history of PE 4. Recent TAVR, Valvular Heart Disease, had severe aortic stenosis: as mentioned above 5. Thrombocytopenia, new onset: Admission platelet 133, prior baseline appears normal with most recent 06/30/2020 164, probably from worsening of kidney function 6. Chronic normocytic anemia: Admission hemoglobin 10.4, on baseline around 10 7. CAD: Patient status post multivessel PTCA/stent and subsequent CABG with SVG to LCx, RCA and diagonal branch with subsequent SVG graft closure to the LCx and diagonal branch 8. COPD with chronic Hypoxic Respiratory Failure: on 3-4 oxygen. Continue bronchodilator, incentive spirometry and chest physiotherapy 9. Hx GI Bleed: Patient with bleed history, not anticoagulant candidate as a result, continue PPI. 10. Hypertension: Continue home regimen including amlodipine, isosorbide, metoprolol, IV Lasix as noted above with hold temporarily on metolazone, PRN Hydralazine. 11. Hyperlipidemia: Not on statin, continue fenofibrate, AM FLP. 12. Anxiety and depression: continue patient home fluoxetine regimen. 13. Diabetes mellitus type II: Hold oral home regimen, continue home insulin regimen, ADA diet, accu checks w/ ISS. 14. GERD: Continue patient home PPI. 15. DVT Prophylaxis: SCDs, hold chemoprophylaxis given mild thrombocytopenia. Total time of the visit including total time spent in counseling or coordination of care, (more than 50% of the total time, spent in obtaining medical information from nurses and other ancillary care providers,explaining to the patient about labs, imaging, diagnosis and management), discussion with color consultant, information exchange with his , review of labs and imaging is 30 minutes. Inpatient E&M: [id number] [facility]
[2020-07-10] MEDS: Pantoprazole Sodium 40 MG Tablet PO (10:12)
[2020-07-10] MEDS: Aspirin E.C. 81 MG Tablet PO (10:12)
[2020-07-10] MEDS: amLODIPine 5 MG Tablet PO ×2 (10:13→21:03)
[2020-07-10] MEDS: Metoprolol Tartrate 50 MG Tablet PO ×2 (10:13→21:04)
[2020-07-10] MEDS: Isosorbide Mononitrate 30 MG Tablet PO (10:13)
[2020-07-10] MEDS: Allopurinol 100 MG Tablet PO (10:15)
--- NOTE | 2020-07-10 11:39 | CON.PCM_ITS ---
Problem List (1) Acute exacerbation of CHF (congestive heart failure) Status: Acute Qualifiers: Heart failure type: unspecified Qualified Code(s): I50.9 - Heart failure, unspecified (2) Status post transcatheter aortic valve replacement Status: Acute (3) Atherosclerotic heart disease of [place] coronary artery without angina pectoris Status: Chronic Qualifiers: [place] vs. transplanted heart: [place] heart Qualified Code(s): I25.10 - Atherosclerotic heart disease of [place] coronary artery without angina pectoris Comment: S/P multivessel PTCA/stent and subsequent CABG with SVG to LCx, RCA and diagonal branch with subsequent SVG graft closure to the LCx and diagonal branch; (4) Presence of stent in coronary artery Status: Chronic Comment: 07/18/10, PTCA/stent to mid to distal LCx artery; 08/17/10 PTCA/stent to proximal to mid RCA; PTCA of distal RCA with DEX September 2010; PTCA with EULALIO to mid distal AV groove left CFX 08/13 (5) S/P CABG x 3 Status: Chronic Comment: CABG-SVG to diagonal, SVG to obtuse marginal & SVG to PDA 07/12; (6) Pure hypercholesterolemia Status: Chronic (7) Essential hypertension Status: Chronic (8) Diabetes mellitus, type II Status: Chronic Qualifiers: Diabetes mellitus terminal press operator insulin use: with terminal press operator use Diabetes mellitus complication status: with other specified complication Qualified Code(s): E11.69 - Type 2 diabetes mellitus with other specified complication; Z79.4 - manager terminal (current) use of insulin (9) Acute kidney injury superimposed on CKD Status: Acute Reason for Consult Date of Consultation: 07/10/20 History of Present Illness: The patient is a 70 year oldnyx-ushy-spy white male with a history of underlying CAD, PCI, CABG, aortic valve stenosis, status post recent TAVR at [facility] with a 29 mm Wilhelm Freddie Ultra valve on 06/10/2020 hyperlipidemia, hypertension, diabetes mellitus, chronic renal insufficiency, who presents for concerns of acute CHF and acute on chronic renal insufficiency. He has been undergoing cardiovascular evaluation at the [facility] in anticipation of his upcoming TAVR procedure. Appears he underwent echocardiogram on 02-26-2020 which at that time demonstrated the left ventricle to be moderately dilated with the left ventricular systolic function being reported as normal with a comment of the basal inferior segment being severely hypokinetic in the basal inferolateral segment and mid inferior segment being mildly hypokinetic with the right atrium being mildly dilated, the left atrium being mildly dilated, the mitral valve having moderate mitral annular calcification with trace to mild MR, tricuspid valve demonstrating trace TR, the aortic valve demonstrating severe aortic valve stenosis with trace to mild AI, and the pulmonic valve demonstrating trace VA. A cardiac MRI was performed on 03-30-2020 which demonstrated the LV to be at the upper limit of normal size with an LVEF of 55%. Based upon medical records received for review it appears that on 04-28-2020 he underwent further evaluation with a diagnostic cardiac catheterization. The left main coronary artery was reported as normal, the LAD was reported as having moderate diffuse disease, the LCx was reported as having moderate diffuse disease, the RCA was reported as chronic total occlusion, and SVG graft to the LAD was reported as 100% stenosis, and SVG graft to OM1 was reported as 100% stenosis, and SVG graft to the right PDA was reported as 0% stenosis. There was no report of any additional coronary artery/graft revascularization. He subsequently underwent the TAVR procedure as noted above. He states that he was eventually released home for continued outpatient follow-up. Since being home he has been monitoring his fluid intake. He states his has been very restrictive of his fluid intake based upon [facility] directions. He notes he is also been avoiding any salt intake. He has been taking his medications. However despite this he states that initially he felt better with respect to his breathing. He has now noted progressive shortness of breath and dyspnea. He has complained of symptoms compatible with orthopnea. He has noted continued lower extremity peripheral pitting edema. He has denied ongoing chest discomfort. There has been no report of near syncope or syncope. Based upon the aforementioned concerns he presented to [facility] [place] for further evaluation. He was thought to have evidence of acute CHF/pulmonary edema and acute on chronic renal insufficiency. He was placed in the hospital for further evaluation and care. His troponin I levels have been negative. His BNP level was elevated. His ECG demonstrated sinus rhythm with nonspecific T wave changes. His chest x-ray demonstrated post open heart surgery changes with the appearance of no acute cardiopulmonary related issue. He has been treated medically with IV diuretics. He states his urine output has increased somewhat. Nephrology consultation was requested for further assistance with his clinical course. Note in the past he had transiently been on hemodialysis therapy. Past Medical History Allergies/Adverse Reactions: Allergies carvedilol [From Coreg] Allergy (Severe, Verified 07/09/20 20:09) vomiting valsartan [From Diovan] Allergy (Severe, Verified 07/09/20 20:09) Possible angioedema, throat swelling sertraline HCl [From Zoloft] Allergy (Verified 07/09/20 20:09) Unknown makes me mean bupropion HCl [From Wellbutrin] Adverse Reaction (Verified 07/09/20 20:09) gets mean citalopram Adverse Reaction (Verified 07/09/20 20:09) Other gabapentin Adverse Reaction (Verified 07/09/20 20:09) Other Home Medications: Ambulatory Orders Medication Instructions Recorded Nitroglycerin (INPATIENT USE) 0.4 mg SUBLINGUAL Q5M PRN 10/27/13 [Nitrostat] berberine-herbal comb no.18 capsule 2 cap PO BID cap 02/24/18 Allopurinol 100 mg PO DAILY 02/25/19 Astaxanthin 4 mg PO DAILY 02/25/19 Fluoxetine HCl 40 mg PO DAILY 02/25/19 Insulin Aspart [Novolog Flexpen] 36 units SUBCUT TIDCM 02/25/19 Ubidecarenone [Co Q-10] 400 mg PO BID 11/10/19 fenofibrate 160 mg tablet 160 mg PO DAILY 02/04/20 insulin glargine 100 unit/mL (3 50 unit SUBCUT BID ml 02/04/20 mL) subcutaneous pen furosemide 80 mg tablet 80 mg PO BID #180 tab 05/16/20 isosorbide mononitrate 30 mg 30 mg PO DAILY #90 tab 05/16/20 tablet,extended release 24 hr metoprolol tartrate 50 mg tablet 50 mg PO BID #180 tab 05/20/20 amlodipine 5 mg tablet 5 mg PO BID #180 tab 06/03/20 Aspirin E.C. [Ecotrin] 81 mg PO DAILY@0800 06/30/20 Pantoprazole Sodium [Protonix] 40 mg PO DAILY 06/30/20 Metolazone [Zaroxolyn] 5 mg PO DAILY 07/09/20 Past Medical History (Chronic Problems): Chronic Problems (Last Reviewed 02/04/20 @ 10:59 by Pili May) Chronic anemia (Chronic) Anxiety and depression (Chronic) Chronic obstructive pulmonary disease (COPD) (Chronic) Chronic respiratory failure with hypoxia (Chronic) Diabetes mellitus, type II (Chronic) History of GI bleed (Chronic) Chronic kidney disease (Chronic) Dyspnea on exertion (Chronic) Kidney disease, chronic, stage IV (GFR 15-29 ml/min) (Chronic) COPD (chronic obstructive pulmonary disease) (Chronic) Sleep apnea (Chronic) Nephrotic range proteinuria (Chronic) Pure hypercholesterolemia (Chronic) Type 2 diabetes mellitus (Chronic) Presence of stent in coronary artery (Chronic ~08/25/14) 07/18/10, PTCA/stent to mid to distal LCx artery; 08/17/10 PTCA/stent to proximal to mid RCA; PTCA of distal RCA with DEX September 2010; PTCA with EULALIO to mid distal AV groove left CFX 08/13 Essential hypertension (Chronic) Nonrheumatic aortic (valve) stenosis (Chronic) Nonspecific abnormal unspecified cardiovascular function study (Chronic) Diastolic dysfunction (Chronic) Other terminal press operator (current) drug therapy (Chronic) Atherosclerotic heart disease of [place] coronary artery without angina pectoris (Chronic) S/P multivessel PTCA/stent and subsequent CABG with SVG to LCx, RCA and taylor gonal branch with subsequent SVG graft closure to the LCx and diagonal branch; S/P CABG x 3 (Chronic ~07/21/12) CABG-SVG to diagonal, SVG to obtuse marginal & SVG to PDA 07/12; GERD (gastroesophageal reflux disease) (Chronic) Anxiety (Chronic) Surgical History: angioplasty, arthroscopy, knee, coronary bypass surgery, - - Patient status post CABG x3, serial PCI, bilateral total knee replacement, rotator cuff repair, partial colectomy, cholecystectomy, carpal tunnel surgery, recent TAVR 05/2020. Psychiatric History: No pertinent psych hx - *Family History Maternal Family History: Family History (Last Reviewed 02/04/20 @ 10:59 by Pili May) Father CAD (coronary artery disease) Afib Aortic valve replaced Mother Cancer Son Lupus History Items: Cancer Paternal Family History: Family History (Last Reviewed 02/04/20 @ 10:59 by Pili May) Father CAD (coronary artery disease) Afib Aortic valve replaced Mother Cancer Son Lupus History Items: High Cholesterol, Heart Disease - Atrial fibrillation; valvular heart disease status post aVR; , Hypertension Lives: Spouse/ Significant Other Smoking Status: Former smoker Tobacco Use: Non-smoker Alcohol: None Drugs: None Review of Systems - Review of Systems General: Denies: Fever, Night Sweats, Fatigue Cardiovascular: Reports: Shortness of Breath, Shortness of Breath at Rest, Shortness of Breath with Exertion, Orthopnea, Peripheral Edema. Denies: Chest Discomfort, PND, Palpitations, Lightheadedness, Dizziness, Near Syncope, Syncope Respiratory: Reports: Shortness of Breath. Denies: Cough, Sputum Production, Hemoptysis Gastrointestinal: Denies: Hematemesis, Hematochezia, Melena Genitourinary: Denies: Dysuria, Hematuria Skin: Denies: Rash Subjectve: This is a 70-year-old white male who appears to be resting reasonably comfortably at the moment in no acute distress. Objective: Vital Signs Temp Pulse Resp BP Pulse Ox 97.7 F L 68 18 140/70 H 96 07/10/20 04:45 07/10/20 10:13 07/10/20 08:14 07/10/20 10:13 07/10/20 08:13 Oxygen Flow Rate (L/min) 4 Oxygen Delivery Method Nasal Cannula Weight: 257 lb 7.999 oz Body Mass Index (BMI) 38.3 Finger Stick Blood Glucose 269 Intake and Output for Last 24 Hours 07/08/20 07/09/20 07/10/20 23:59 23:59 23:59 Intake Total 240 / 240 Output Total 375 / 375 685 / 685 Balance -135 / -135 -685 / -685 General: Awake, Alert, Oriented x 3, Cooperative, No Acute Distress, Obese HEENT: Atraumatic, Normocephalic, PERRL, EOMI, Sclera Non Icteric Neck: Supple, Good ROM Lungs: Diminished Rohith Bases Cardiovascular: Regular Rhythm, Normal S1, Normal S2 Abdomen: Bowel Sounds Present, Soft, Obese Extremities: Moderate RLE Edema, Moderate LLE Edema Neurological: No Focal Motor or Sensory Deficit Psych/Mental Status: Appropriate 07/09/20 17:25: WBC 9.4, RBC 4.00 L, Hgb 10.4 L, Hct 34.7 L, MCV 86.8, MCH 26.0 L, MCHC 30.0 L, Plt Count 133 L, MPV 9.5, Immature Gran % (Auto) 1.400 H, Neut % (Auto) 83.1 H, Lymph % (Auto) 6.8 L, [place] % (Auto) 6.9, Eos % (Auto) 1.6, Baso % (Auto) 0.2, Absolute Neuts (auto) 7.9 H, Nucleated RBC % 0 07/09/20 17:25: D-Dimer Quant (PE/DVT) 1.38 H* 07/09/20 17:25: Sodium 141, Potassium 4.5, Chloride 109 H, Carbon Dioxide 20.0 L , Anion Gap 12, BUN 132 H*, Creatinine 4.41 H, Est GFR (MDRD) Af Amer 17 L, Est GFR (MDRD) Non-Af 14 L, BUN/Creatinine Ratio 29.9 H, Glucose 110 H, Calcium 8.6, Troponin I < 0.015 07/09/20 17:25: B-Natriuretic Peptide 482.6 H 07/09/20 17:25: Magnesium 2.7 H 07/09/20 20:32: Troponin I < 0.015 07/09/20 23:30: Troponin I < 0.015 07/10/20 05:15: WBC 8.0, RBC 3.64 L, Hgb 9.5 L, Hct 31.9 L, MCV 87.6, MCH 26.1 L , MCHC 29.8 L, Plt Count 134 L, MPV 10.3, Immature Gran % (Auto) 1.700 H, Neut % (Auto) 81.3 H, Lymph % (Auto) 6.7 L, [place] % (Auto) 7.5, Eos % (Auto) 2.6, Baso % (Auto) 0.2, Absolute Neuts (auto) 6.5, Nucleated RBC % 0.2 07/10/20 05:15: Sodium 139, Potassium 4.5, Chloride 109 H, Carbon Dioxide 20.0 L , Anion Gap 10, BUN 137 H*, Creatinine 4.20 H, Est GFR (MDRD) Af Amer 18 L, Est GFR (MDRD) Non-Af 15 L, BUN/Creatinine Ratio 32.6 H, Glucose 154 H, Calcium 8.5, Total Bilirubin 0.70, Triglycerides 138, Cholesterol 129, LDL Cholesterol 71, VLDL Cholesterol 28, HDL Cholesterol 30 L Rhythm: Sinus rhythm EKG: As noted above ECHO: [facility] echocardiogram: As noted above [facility] [place] echocardiogram: 8-18-2020 Interpretation Summary Mild concentric left ventricular hypertrophy. Mildly dilated left ventricle. The estimated ejection fraction is 65 %. The left atrium is mildly enlarged. Unable to estimate RV systolic pressure due to insufficient tricuspid regurgitant envelope. Moderate restriction of the aortic valve. Mild to moderate aortic stenosis. Peak aortic valve gradient 35 mmHg. Calculated aortic valve area (continuity equation) is 1.2 cm2. Compared to echo report dated 12/11/2018, LV function has remained the same, but aortic vavle gradient appears to have improved from moderate/severe to mild/moderate. AV gradients may be affected by degree of anemia. The study was technically difficult. Contrast injection was performed. Stress Test Report Date: 07-23-18 Procedure: Pharmacologic stress nuclear imaging study Indications: Chest pain; shortness of breath/dyspnea; CAD; status post PCI; status post CABG Consent: Per the patient Procedure: The patient underwent pharmacologic (Regadenoson) evaluation with a peak heart rate of 92 beats per minute (60 %predicted maximal heart rate) and a peak blood pressure of 169/88 mmHg. The baseline ECG demonstrated normal sinus rhythm; nonspecific ST/T wave abnormality. The peak pharmacologic ECG demonstrated continued nonspecific ST/T wave abnormality. There were no cardiac dysrhythmias pretest, during pharmacologic infusion, or recovery. There was no complaint of chest discomfort during pharmacologic infusion or recovery. The examination was discontinued secondary to completion of protocol. Impression: 1. Pharmacologic (Regadenoson) evaluation 2. Peak pharmacologic ECG with continued nonspecific ST/T wave abnormality. 3. There were no cardiac dysrhythmias pretest, during pharmacologic infusion, or recovery. 4. Nuclear images pending Myocardial perfusion imaging study: Technique: The patient was injected with 14.7 millicuries of technetium 99m Cardiolite and subsequently rest SPECT Cardiolite nuclear imaging was obtained in the horizontal long, vertical long, and short axis views. The patient underwent phar macologic (Regadenoson) evaluation with a peak heart rate of 92 beats per minute (60 % percent predicted maximal heart rate) and a peak blood pressure of 169/88 mmHg. The patient was injected with 44.5 millicuries of technetium 99m Cardiolite and subsequently stress SPECT Cardiolite nuclear imaging was obtained in the horizontal long, vertical long, and short axis views. A gated Cardiolite study at peak stress was obtained. Interpretation: Rest and stress SPECT Cardiolite nuclear imaging status post realignment, normalization, and attenuation correction demonstrate the appearance of extra c ardiac/gastrointestinal tracer uptake near the inferior segments. There is also notation of diminished tracer uptake in portions of the basal toward mid inferior segments as well as the inferior apical segments without significant change between rest and stress.. There is diminished and systolic thickening and brightening in the aforementioned areas. There is diminished myocardial thickening and inward wall motion in the aforementioned areas. The reported LVEF is 53 %. Impression: 1. Rest and stress SPECT Cardiolite nuclear imaging demonstrate myocardial perfusion changes appearing compatible with an area of previous myocardial injury/infarction involving portions of the basal towards mid inferior and the inferior apical segments without associated myocardial perfusion changes consi norman diagnostic for associated stress-induced myocardial ischemia. Of note, an element of soft tissue attenuation/artifact or gastrointestinal tracer uptake/retraction contributing to the aforementioned findings cannot necessarily be excluded. 2. The gated Cardiolite study reports an LVEF of 53 %. Cardiac Cath: CF cardiac cath: As noted above CT Surgery: 07-21-2012: [facility]: SVG to the diagonal branch SVG to the OM SVG to the right PDA CXR: FINDINGS: EKG leads project over the chest. The lungs are clear and expanded. There is no demonstrated pleural abnormality. There is mild cardiac enlargement. EKG leads project over the chest. Normal visualized pulmonary arteries. There is atherosclerotic calcification of the aortic arch with tortuosity. No acute bony process. There is no demonstrated abnormality of the visualized soft tissue structures of the upper abdomen. RAD/Chest 1 View (Portable) IMPRESSION: Nonacute portable x-ray examination of the chest. Electronically Signed: Duc Gomez MD ([place]) at 18:27 EDT Assessment/Plan 1. Acute CHF The patient presents with concerns of acute CHF. The patient has recently undergone TAVR procedure at [facility] as noted. Prior to the TAVR procedure he did not require repeat coronary artery/graft revascularization therapy. Prior to the TAVR procedure his overall LV systolic function was considered preserved based upon the [facility] studies. At the present time there be concern as to whether there has been any change in the patient's underlying valvular heart disease to contribute to his findings versus decreased diastolic compliance versus being related to the appearance of his progressive renal insufficiency with acute on chronic renal insufficiency. At the present time the patient will continue to be monitored. He will continue medical management which has included IV diuretic therapy. He will be reassessed with echocardiographic studies. 2. TAVR The patient has undergone recent TAVR procedure at [facility] as noted. It is unclear whether or not there is any concerns about his TAVR that would contribute to his current clinical course. Thus he will be reassessed with an echocardiogram. 3. CAD status post PCI/CABG The patient was recently reassessed at [facility] with a cardiac catheterization. He did not require revascularization therapy. His troponin I levels have been negative. His ECG demonstrated no acute changes. He will continue medical management. 4. Hyperlipidemia The patient has had a history of being on and off various lipid-lowering agents in the past. He will need to continue lipid management as best as possible. 5. Hypertension The patient will continue antihypertensive therapy with adjustment taking into consideration his renal insufficiency. 6. Diabetes mellitus The patient will continue evaluation care per internal medicine. 7. Acute on chronic renal insufficiency The patient has had an increase in his creatinine levels. Etiology may be progression of his underlying renal insufficiency. However, there is a question whether or not his previous invasive procedures with IV contrast may have contributed to any progression of his renal insufficiency. His diminished renal function may be contributing to his volume related issues. At the present time he is continuing medical management. However, nephrology has also been consulted to reassess the patient as he has been on hemodialysis in the past. Comment: The patient's case has been discussed and reviewed with the patient as well as Dr. Gama. This note was generated using a voice recognition system and there may be incorrect words, spelling or punctuation that were not noted when reviewing the office note prior to saving.
[2020-07-10 14:11] LABS: Bedside Glucose 79 mg/dL (70-110)
[2020-07-10] MEDS: FLUoxetine 20 MG Capsule 40 MG PO (14:36)
[2020-07-10 17:15] LABS: Bedside Glucose 151 mg/dL (70-110)
[2020-07-10] MEDS: Mag Hydrox/Al Hydrox/Simeth 30 ML UDC PO (20:06)
[2020-07-10 21:36] LABS: Bedside Glucose 90 mg/dL (70-110)
[2020-07-10] MEDS: traZODone 50 MG Tablet PO (22:14)
[2020-07-11] VITALS (17 sets, daily range): BP systolic 132–136; BP diastolic 50–65; PULSE 58–80; RESP 12–18; TEMP 36.6–36.8; O2SAT 93–98
[2020-07-11 05:19] LABS: Absolute Lymphocyte Count 0.74 X10^3/uL (0.83-4.51); Absolute Neutrophil Count 7.1 X10^3/uL (2.0-7.7); Basophil# 0.02 X10^3/uL; Basophil% 0.2 % (0-1); Eosinophil# 0.21 X10^3/uL; Eosinophils% 2.4 % (0-5); Hematocrit 31.8 % (40-54); Hemoglobin 9.5 g/dL (13.0-16.5); Lymphocyte # 0.74 X10^3/ul (4.0); Lymphocyte % 8.3 % (19-41); Mean Corp Hgb Conc 29.9 g/dL (32-36); Mean Corpuscular Hgb 26.1 pg (27.0-32.0); Mean Corpuscular Volume 87.4 fL (80-94); Mean Platelet Vol. 9.4 fl (6.2-12.0); Monocyte% 7.9 % (0-10); NRBC Flagged by Analyzer 0 % (0-5); Neutrophil # 7.09 X10^3/uL (2.7-7.7); Neutrophil % 79.5 % (47-70); Platelet Count 140 K/mm3 (150-450); RBC Distribution Width CV 18.4 % (11.6-14.6); RBC Distribution Width SD 57.2 fl (35.1-43.9); Red Blood Count 3.64 M/mm3 (4.6-6.2); White Blood Count 8.9 K/mm3 (4.4-11.0)
[2020-07-11] MEDS: Furosemide 100 MG/10 ML Vial 60 MG IV ×3 (05:37→21:50)
[2020-07-11 05:40] LABS: Anion Gap 10 (5-15); BUN 139 mg/dL (7-18); BUN/Creat Ratio 32.3 RATIO (10-20); Calcium,Total 8.7 mg/dL (8.5-10.1); Chloride 109 mmol/L (98-107); Creatinine, Serum 4.31 mg/dL (0.70-1.30); EST Glomerular Filtration Rate 15 mL/min (>60); Est Glom Filt Rate - Afr Amer 18 mL/min (>60); Estimated Creatinine Clearance 16.18 ml/min; Glucose 69 mg/dL (74-106); Magnesium 2.6 mg/dL (1.6-2.6); Potassium 4.1 mmol/L (3.5-5.1); Sodium Level 143 mmol/L (136-145)
[2020-07-11] MEDS: Ipratropium/Albuterol Sulfate 3 ML AMPUL.NEB INHALATION ×3 (06:49→19:20)
[2020-07-11] MEDS: Isosorbide Mononitrate 30 MG Tablet PO (08:28)
[2020-07-11] MEDS: Aspirin E.C. 81 MG Tablet PO (08:28)
[2020-07-11] MEDS: Metoprolol Tartrate 50 MG Tablet PO ×2 (08:28→21:56)
[2020-07-11] MEDS: Pantoprazole Sodium 40 MG Tablet PO (08:29)
[2020-07-11] MEDS: amLODIPine 5 MG Tablet PO ×2 (08:29→21:56)
[2020-07-11] MEDS: FLUoxetine 20 MG Capsule 40 MG PO (08:29)
[2020-07-11] MEDS: Allopurinol 100 MG Tablet PO (08:30)
[2020-07-11 08:35] LABS: Bedside Glucose 76 mg/dL (70-110)
--- NOTE | 2020-07-11 09:35 | PCM.PN.CARD ---
Subjectve: He states he did attempt to walk yesterday around the PCU. He had to stop 3 times based upon his breathing. He was wearing O2. Today he states he feels his breathing is somewhat improved. Objective: Vital Signs Temp Pulse Resp BP Pulse Ox 97.8 F 68 17 132/55 H 96 07/11/20 08:16 07/11/20 08:28 07/11/20 08:16 07/11/20 08:16 07/11/20 08:16 Oxygen Flow Rate (L/min) 3 Oxygen Delivery Method Nasal Cannula Weight: 261 lb 14.546 oz Body Mass Index (BMI) 38.3 Finger Stick Blood Glucose 269 Intake and Output for Last 24 Hours 07/09/20 07/10/20 07/11/20 23:59 23:59 23:59 Intake Total 240 / 240 660 / 860 200 / 200 Output Total 375 / 375 2485 / 2960 475 / 475 Balance -135 / -135 -1825 / -2100 -275 / -275 General: Awake, Alert, Oriented x 3, Cooperative, No Acute Distress, Obese HEENT: Atraumatic, Normocephalic, PERRL, EOMI, Sclera Non Icteric Neck: Supple, Good ROM Lungs: Clear to auscultation Cardiovascular: Regular Rhythm, Normal S1, Normal S2 Abdomen: Bowel Sounds Present, Soft, Obese Extremities: No Cyanosis, No Clubbing, Moderate RLE Edema, Moderate LLE Edema Neurological: No Focal Motor or Sensory Deficit Psych/Mental Status: Appropriate 07/11/20 04:44: WBC 8.9, RBC 3.64 L, Hgb 9.5 L, Hct 31.8 L, MCV 87.4, MCH 26.1 L, MCHC 29.9 L, Plt Count 140 L, MPV 9.4, Immature Gran % (Auto) 1.700 H, Neut % (Auto) 79.5 H, Lymph % (Auto) 8.3 L, Love % (Auto) 7.9, Eos % (Auto) 2.4, Baso % (Auto) 0.2, Absolute Neuts (auto) 7.1, Nucleated RBC % 0 07/11/20 04:44: Sodium 143, Potassium 4.1, Chloride 109 H, Carbon Dioxide 24.0, Anion Gap 10, BUN 139 H*, Creatinine 4.31 H, Est GFR (MDRD) Af Amer 18 L, Est GFR (MDRD) Non-Af 15 L, BUN/Creatinine Ratio 32.3 H, Glucose 69 L, Calcium 8.7, Magnesium 2.6 Rhythm: Sinus rhythm Medical Necessity - Tobacco Use Smoking Status: Former smoker Tobacco Use: Non-smoker Assessment/Plan 1. Acute CHF The patient presents with concerns of acute CHF. The patient has recently undergone TAVR procedure at [facility] as noted. Prior to the TAVR procedure he did not require repeat coronary artery/graft revascularization therapy. Prior to the TAVR procedure his overall LV systolic function was considered preserved based upon the [facility] studies. At the present time there be concern as to whether there has been any change in the patient's underlying valvular heart disease to contribute to his findings versus decreased diastolic compliance versus being related to the appearance of his progressive renal insufficiency with acute on chronic renal insufficiency. At the present time the patient will continue to be monitored. He will continue medical management which has included IV diuretic therapy. An echocardiogram is pending to reassess his valvular anatomy and physiology. 2. TAVR The patient has undergone recent TAVR procedure at [facility] as noted. It is unclear whether or not there is any concerns about his TAVR that would contribute to his current clinical course. Thus he will be reassessed with an echocardiogram. 3. CAD status post PCI/CABG The patient was recently reassessed at [facility] with a cardiac catheterization. He did not require revascularization therapy. His troponin I levels have been negative. His ECG demonstrated no acute changes. He will continue medical management. 4. Hyperlipidemia The patient has had a history of being on and off various lipid-lowering agents in the past. He will need to continue lipid management as best as possible. 5. Hypertension The patient will continue antihypertensive therapy with adjustment taking into consideration his renal insufficiency. 6. Diabetes mellitus The patient will continue evaluation care per internal medicine. 7. Acute on chronic renal insufficiency The patient has had an increase in his creatinine levels. The etiology may be progression of his underlying renal insufficiency. However, there is a question whether or not his previous invasive procedures with IV contrast may have contributed to any progression of his renal insufficiency. His diminished renal function may be contributing to his volume related issues. At the present time he is continuing medical management. He has been receiving IV diuretics. He believes his urine output has increased. He states he is feeling better. His creatinine remains elevated. However, nephrology has also been consulted to reassess the patient as he has been on hemodialysis in the past. This note was generated using a voice recognition system and there may be incorrect words, spelling or punctuation that were not noted when reviewing the office note prior to saving.
--- NOTE | 2020-07-11 10:30 | CASEMGMT ---
RN GAURI Face to Face with patient for initial transition planning/care coordination assessment. RN CM introduced self and role at [facility]. Patient lying in bed, alert and oriented, at bedside. Patient willing to participate in assessment and is able to answer all questions appropriately. Care providers, pharmacy, and demographics verified. Patient wishes to discharge home, denies need for home health at this time. Patient states he has no further needs or concerns at this time. CM to follow for discharge planning needs that may arise. PCP: Allan Specialists: Peter, senior data developer; Elia, aviation engineer; Franklin, shipbuilding draftsperson Preferred Pharmacy: [facility] Insurance: [facility] Prescription Benefit: yes Living Will/HPOA: yes, Diana Gardner HPOA LNOK: Living Arrangements: Patient lives with in a 2 story home with bed and bath on first floor. 3 steps to enter the home. Patient is independent at home for self care, assists at times when needed. Transportation: DME/HHC: Patient has shower chair, cane, walker, rollater, bipap, and oxygen at 4lpm with portability through [employer]. Patient has previously been to [facility]. denies previous HHC. Disposition Plan: Patient to discharge home with family support and follow-up plans in place. Jil GARCIA, RN, CM
[2020-07-11 11:10] LABS: Bedside Glucose 120 mg/dL (70-110)
--- NOTE | 2020-07-11 13:10 | US_ITS ---
STUDY: RENAL ULTRASOUND - COMPLETE REASON FOR EXAM: Male, 70 years old. EDGARDO TECHNIQUE: Ultrasound evaluation of the kidneys was performed with real-time and static buchanan-scale imaging. COMPARISON: 11/19/2019. FINDINGS: RIGHT KIDNEY: Normal location of the right kidney, which is normal in size. The right kidney measures 12.1 x 4.9 x 5.6 cm. There is a normal cortex of the right kidney. The renal cortex measures 1.2 cm. There is a 1.5 cm right renal cyst. There are no right renal calculi. There is no right hydronephrosis. DISTAL RIGHT URETER: There is non-visualization of the distal right ureter. There is no demonstrated right ureterovesical junction calculus. LEFT KIDNEY: Normal location of the left kidney, which is normal in size. The left kidney measures 12.5 x 6.5 x 6.7 cm. There is a normal cortex of the left kidney. The renal cortex measures 2.0 cm. There is a 4.1 x 4.7 x 3.7 cm left renal cyst. An exophytic 1 cm cyst is also noted. There are no left renal calculi. There is no left hydronephrosis. DISTAL LEFT URETER: There is non-visualization of the distal left ureter. There is no demonstrated left ureterovesical junction calculus. BLADDER: The distended urinary bladder has a volume of 499 ml. There is a normal wall thickness of the distended urinary bladder. There is no demonstrated mass within the urinary bladder. There are no demonstrated bladder calculi. US/Kidney and Bladder IMPRESSION: Renal cysts are noted of the kidneys. Electronically Signed: Marek Sanchez DO at 16:10 EDT Tel [phone], Service support ,
[2020-07-11 13:21] LABS: Bacteria 0 SEEN /hpf (None Seen); Mucous, Urine 0 SEEN /hpf (<or=2+); Red Blood Cells-Urine 0 SEEN /hpf (0-5); Squamous Epithelial Cells - UA 0 SEEN /hpf (0-5); White Blood Cells 0 SEEN /hpf (0-5)
--- NOTE | 2020-07-11 13:23 | PCM.CONS.GEN ---
Reason for Consult Date of Consultation: 07/11/20 History of Present Illness: The patient is a 70 year old M with past medical history as below who presented with a chief complaint of shortness of breath. The patient states that he shortness of breath is at baseline now. He states that he was on dialysis for a month or 2 in the past. His creatinine was in the 4 range with his previous baseline baseline in the 2-3 range. He denies nausea vomiting change in taste decreased appetite increased sleepiness. He has no other complaints. He is on home oxygen. He has dyspnea on exertion but states his diet is stable. He denies dysuria hematuria abdominal pain nausea vomiting chest pain fever chills. He has no other complaints. Past Medical History Past Medical History (Chronic Problems): Chronic Problems (Last Reviewed 02/04/20 @ 10:59 by Pili May) Chronic anemia (Chronic) Anxiety and depression (Chronic) Chronic obstructive pulmonary disease (COPD) (Chronic) Chronic respiratory failure with hypoxia (Chronic) Diabetes mellitus, type II (Chronic) History of GI bleed (Chronic) Chronic kidney disease (Chronic) Dyspnea on exertion (Chronic) Kidney disease, chronic, stage IV (GFR 15-29 ml/min) (Chronic) COPD (chronic obstructive pulmonary disease) (Chronic) Sleep apnea (Chronic) Nephrotic range proteinuria (Chronic) Pure hypercholesterolemia (Chronic) Type 2 diabetes mellitus (Chronic) Presence of stent in coronary artery (Chronic ~08/25/14) 07/18/10, PTCA/stent to mid to distal LCx artery; 08/17/10 PTCA/stent to proximal to mid RCA; PTCA of distal RCA with DEX September 2010; PTCA with EULALIO to mid distal AV groove left CFX 08/13 Essential hypertension (Chronic) Nonrheumatic aortic (valve) stenosis (Chronic) Nonspecific abnormal unspecified cardiovascular function study (Chronic) Diastolic dysfunction (Chronic) Other alf (current) drug therapy (Chronic) Atherosclerotic heart disease of [place] coronary artery without angina pectoris (Chronic) S/P multivessel PTCA/stent and subsequent CABG with SVG to LCx, RCA and diagonal branch with subsequent SVG graft closure to the LCx and diagonal branch; S/P CABG x 3 (Chronic ~07/21/12) CABG-SVG to diagonal, SVG to obtuse marginal & SVG to PDA 07/12; GERD (gastroesophageal reflux disease) (Chronic) Anxiety (Chronic) Medical History: Medical History (Last Reviewed 02/04/20 @ 10:59 by Pili May) COPD (chronic obstructive pulmonary disease) (Chronic) J44.9 Sleep apnea (Chronic) G47.30 Pure hypercholesterolemia (Chronic) E78.00 Type 2 diabetes mellitus (Chronic) E11.9 Presence of stent in coronary artery (Chronic) Onset Date: ~08/25/14 Z95.5 07/18/10, PTCA/stent to mid to distal LCx artery; 08/17/10 PTCA/stent to proximal to mid RCA; PTCA of distal RCA with DEX September 2010; PTCA with EULALIO to mid distal AV groove left CFX 08/13 Essential hypertension (Chronic) I10 Nonrheumatic aortic (valve) stenosis (Chronic) I35.0 Diastolic dysfunction (Chronic) I51.9 Atherosclerotic heart disease of [place] coronary artery without angina pectoris (Chronic) I25.10 S/P multivessel PTCA/stent and subsequent CABG with SVG to LCx, RCA and diagonal branch with subsequent SVG graft closure to the LCx and diagonal branch; GI bleed Onset Date: ~10/2019 K92.2 Aortic valve disease (Inactive) I35.9 Coronary atherosclerosis of [place] coronary artery (Inactive) I25.10 Diabetes mellitus (Inactive) E11.9 HTN (hypertension) (Inactive) I10 Allergies carvedilol [From Coreg] Allergy (Severe, Verified 07/09/20 20:09) vomiting valsartan [From Diovan] Allergy (Severe, Verified 07/09/20 20:09) Possible angioedema, throat swelling sertraline HCl [From Zoloft] Allergy (Verified 07/09/20 20:09) Unknown makes me mean bupropion HCl [From Wellbutrin] Adverse Reaction (Verified 07/09/20 20:09) gets mean citalopram Adverse Reaction (Verified 07/09/20 20:09) Other gabapentin Adverse Reaction (Verified 07/09/20 20:09) Other Home Medications: Ambulatory Orders Medication Instructions Recorded Nitroglycerin (INPATIENT USE) 0.4 mg SUBLINGUAL Q5M PRN 10/27/13 [Nitrostat] berberine-herbal comb no.18 capsule 2 cap PO BID cap 02/24/18 Allopurinol 100 mg PO DAILY 02/25/19 Astaxanthin 4 mg PO DAILY 02/25/19 Fluoxetine HCl 40 mg PO DAILY 02/25/19 Insulin Aspart [Novolog Flexpen] 36 units SUBCUT TIDCM 02/25/19 Ubidecarenone [Co Q-10] 400 mg PO BID 11/10/19 fenofibrate 160 mg tablet 160 mg PO DAILY 02/04/20 insulin glargine 100 unit/mL (3 50 unit SUBCUT BID ml 02/04/20 mL) subcutaneous pen furosemide 80 mg tablet 80 mg PO BID #180 tab 05/16/20 isosorbide mononitrate 30 mg 30 mg PO DAILY #90 tab 05/16/20 tablet,extended release 24 hr metoprolol tartrate 50 mg tablet 50 mg PO BID #180 tab 05/20/20 amlodipine 5 mg tablet 5 mg PO BID #180 tab 06/03/20 Aspirin E.C. [Ecotrin] 81 mg PO DAILY@0800 06/30/20 Pantoprazole Sodium [Protonix] 40 mg PO DAILY 06/30/20 Metolazone [Zaroxolyn] 5 mg PO DAILY 07/09/20 traZODone [Desyrel] 50 mg PO QHS PRN PRN 07/10/20 Surgical History: Surgical History (Last Reviewed 02/04/20 @ 10:59 by Pili May) S/P CABG x 3 (Chronic) Onset Date: ~07/21/12 Z95.1 CABG-SVG to diagonal, SVG to obtuse marginal & SVG to PDA 07/12; History of colonoscopy Onset Date: ~12/2019 Z98.890 History of esophagogastroduodenoscopy (EGD) Onset Date: ~12/2019 Z98.890 History of bilateral knee replacement Z96.653 History of carpal tunnel repair Z98.890 History of cholecystectomy Z90.49 History of partial colectomy Z90.49 History of repair of rotator cuff Z98.890 Presence of coronary angioplasty implant and graft Z95.5 07/18/10, PTCA/stent to mid to distal LCx artery; 08/17/10 PTCA/stent to proximal to mid RCA; PTCA of distal RCA with DEX September 2010; PTCA with EULALIO to mid distal AV groove left CFX 08/13 S/P PTCA (percutaneous transluminal coronary angioplasty) (Inactive) Z98.61 07/18/10, PTCA/stent to mid to distal LCx artery; 08/17/10 PTCA/stent to proximal to mid RCA; PTCA of distal RCA with DEX September 2010; PTCA with EULALIO to mid distal AV groove left CFX 08/13 Surgical History: angioplasty, arthroscopy, knee, coronary bypass surgery, - - Patient status post CABG x3, serial PCI, bilateral total knee replacement, rotator cuff repair, partial colectomy, cholecystectomy, carpal tunnel surgery, recent TAVR 05/2020. Psychiatric History: No pertinent psych hx Lives: Spouse/ Significant Other Smoking Status: Former smoker Tobacco Use: Non-smoker Alcohol: None Drugs: None - *Family History Maternal Family History: Family History (Last Reviewed 02/04/20 @ 10:59 by Pili May) Father CAD (coronary artery disease) Afib Aortic valve replaced Mother Cancer Son Lupus History Items: Cancer Paternal Family History: Family History (Last Reviewed 02/04/20 @ 10:59 by Pili May) Father CAD (coronary artery disease) Afib Aortic valve replaced Mother Cancer Son Lupus History Items: High Cholesterol, Heart Disease - Atrial fibrillation; valvular heart disease status post aVR; , Hypertension Patient Problems: Active and Suspected Problems (Last Reviewed 02/04/20 @ 10:59 by Pili May) Acute exacerbation of CHF (congestive heart failure) (Acute) Acute kidney injury superimposed on CKD (Acute) Elevated d-dimer (Acute) Status post transcatheter aortic valve replacement (Acute) Thrombocytopenia (Acute) - Physical Exam Vitals/I&O's: Vital Signs Temp Pulse Resp BP Pulse Ox 97.8 F 68 17 132/55 H 96 07/11/20 08:16 07/11/20 08:28 07/11/20 08:16 07/11/20 08:16 07/11/20 08:16 Oxygen Flow Rate (L/min) 3 Oxygen Delivery Method Nasal Cannula Weight: 118.8 kg Body Mass Index (BMI) 38.3 Finger Stick Blood Glucose 269 Intake and Output for Last 24 Hours 07/09/20 07/10/20 07/11/20 23:59 23:59 23:59 Intake Total 240 / 240 660 / 860 680 / 680 Output Total 375 / 375 2485 / 2960 2125 / 2125 Balance -135 / -135 -1825 / -2100 -1445 / -1445 General: Alert HEENT: Atraumatic, Normocephalic Neck: Supple Lungs: Clear to auscultation, - - Decreased air entry bilaterally Cardiovascular: Regular rate, Regular Rhythm, Normal S1, Normal S2 Abdomen: Bowel Sounds Present, Soft, Obese Extremities: Edema Laboratory Results 07/10/20 11:50: POC Glucose 79 07/10/20 17:04: POC Glucose 151 H 07/10/20 21:00: POC Glucose 90 07/11/20 04:44: WBC 8.9, RBC 3.64 L, Hgb 9.5 L, Hct 31.8 L, MCV 87.4, MCH 26.1 L, MCHC 29.9 L, RDW Std Deviation 57.2 H, RDW Coeff of Judi 18.4 H, Plt Count 140 L, MPV 9.4, Immature Gran % (Auto) 1.700 H, Neut % (Auto) 79.5 H, Lymph % (Auto) 8.3 L, [place] % (Auto) 7.9, Eos % (Auto) 2.4, Baso % (Auto) 0.2, Absolute Neuts (auto) 7.1, Absolute Lymphs (auto) 0.74 L, Nucleated RBC % 0 07/11/20 04:44: Sodium 143, Potassium 4.1, Chloride 109 H, Carbon Dioxide 24.0, Anion Gap 10, BUN 139 H*, Creatinine 4.31 H, Estim Creat Clear Calc 16.18, Est GFR (MDRD) Af Amer 18 L, Est GFR (MDRD) Non-Af 15 L, BUN/Creatinine Ratio 32.3 H, Glucose 69 L, Calcium 8.7, Magnesium 2.6 07/11/20 08:14: POC Glucose 76 07/11/20 10:48: POC Glucose 120 H 07/11/20 12:56: Urine Color Pending, Urine Clarity Pending, Urine pH Pending, Ur Specific [place] Pending, Urine Protein Pending, Urine Glucose (UA) Pending, Urine Ketones Pending, Urine Occult Blood Pending, Urine Nitrite Pending, Urine Bilirubin Pending, Urine Urobilinogen Pending, Ur Leukocyte Esterase Pending, Urine RBC Pending, Urine WBC Pending, Ur Squamous Epith Cells Pending, Urine Bacteria Pending, Urine Mucus Pending Current Medications Acetaminophen (Acetaminophen 325 Mg Tablet) 650 mg PO Q6H PRN PRN PRN Reason: Pain Score 1-10/Temp > 100.7 F Al Hydroxide/Mg Hydroxide (Mag Hydrox/Al Hydrox/Simeth 30 Ml Udc) 30 ml PO Q6H PRN PRN PRN Reason: Gastric Burning Last Admin: 07/10/20 20:06 Dose: 30 ml Documented by: Albuterol Sulfate (Albuterol 2.5 Mg/3 Ml Vial.Neb.) 2.5 mg INHALATION Q2H PRN PRN PRN Reason: Dyspnea, wheezing Albuterol/Ipratropium (Ipratropium/Albuterol Sulfate 3 Ml Ampul.Neb) 3 ml INHALATION Q6HWA.RT [facility] Last Admin: 07/11/20 06:49 Dose: 3 ml Documented by: Allopurinol (Allopurinol 100 Mg Tablet) 100 mg PO DAILY [facility] Last Admin: 07/11/20 08:30 Dose: 100 mg Documented by: Amlodipine Besylate (Amlodipine 5 Mg Tablet) 5 mg PO BID [facility] Last Admin: 07/11/20 08:29 Dose: 5 mg Documented by: Aspirin (Aspirin E.C. 81 Mg Tablet) 81 mg PO DAILY [facility] Last Admin: 07/11/20 08:28 Dose: 81 mg Documented by: Fluoxetine HCl (Fluoxetine 20 Mg Capsule) 40 mg PO DAILY [facility] Last Admin: 07/11/20 08:29 Dose: 40 mg Documented by: Furosemide (Furosemide 100 Mg/10 Ml Vial) 60 mg IV Q8 [facility] Last Admin: 07/11/20 05:37 Dose: 60 mg Documented by: Guaifenesin (Guaifenesin 10 Ml Udc (200mg/10ml)) 20 ml PO Q4H PRN PRN PRN Reason: COUGH Hydralazine HCl (Hydralazine 20 Mg/Ml Vial) 10 mg IV Q4H PRN PRN PRN Reason: SBP > 160 Insulin Glargine (Insulin Glargine 100 Units/Ml Pen) 50 units SC 0800,2200 [facility] Last Admin: 07/11/20 08:27 Dose: 50 units Documented by: Insulin Human Lispro (Insulin Lispro 100 Unit/Ml Insuln.Pen) 36 unit SC TIDCM [facility] Last Admin: 07/11/20 10:49 Dose: Not Given Documented by: Insulin Human Lispro (Insulin Lispro 100 Unit/Ml Insuln.Pen) 0 unit SC [facility]; Protocol Last Admin: 07/11/20 10:48 Dose: Not Given Documented by: Isosorbide Mononitrate (Isosorbide Mononitrate 30 Mg Tablet) 30 mg PO DAILY [facility] Last Admin: 07/11/20 08:28 Dose: 30 mg Documented by: Melatonin (Melatonin 3 Mg Tablet) 3 mg PO QHS PRN PRN PRN Reason: INSOMNIA Metoprolol Tartrate (Metoprolol Tartrate 50 Mg Tablet) 50 mg PO BID [facility] Last Admin: 07/11/20 08:28 Dose: 50 mg Documented by: Morphine Sulfate (Morphine 2 Mg/Ml Syringe) 2 mg IV Q3H PRN PRN PRN Reason: Pain Score 6-10 Nitroglycerin (Nitroglycerin (Inpatient Use) 0.4 Mg Tab.Subl) 0.4 mg SL Q5M PRN PRN Reason: CARDIAC/CHEST PAIN Ondansetron HCl (Ondansetron 4 Mg/2 Ml Vial) 4 mg IV Q8H PRN PRN PRN Reason: NAUSEA/VOMITING Oxycodone HCl (Oxycodone 5 Mg Tablet) 5 mg PO Q4H PRN PRN PRN Reason: Pain Score 4-5 Pantoprazole Sodium (Pantoprazole Sodium 40 Mg Tablet) 40 mg PO DAILY [facility] Last Admin: 07/11/20 08:29 Dose: 40 mg Documented by: Prochlorperazine Edisylate (Prochlorperazine 10 Mg/2 Ml Vial) 5 mg IV Q4H PRN PRN PRN Reason: Breakthrough Nausea/Vomiting Psyllium Hydrophilic Mucilloid (Psyllium 1 Packet) 1 packet PO DAILY PRN PRN PRN Reason: Constipation Senna/Docusate Sodium (Senna/Docusate Sodium 1 Tablet) 2 tablet PO BID PRN PRN PRN Reason: Constipation Throat Lozenges (Benzocaine/Menthol 1 Lozenge) 1 lozenge MUCOUS MEM Q2H PRN PRN PRN Reason: SORE THROAT Trazodone HCl (Trazodone 50 Mg Tablet) 50 mg PO QHS PRN PRN Reason: SLEEP Last Admin: 07/10/20 22:14 Dose: 50 mg Documented by: Assessment/Plan All Active Problems (Last Reviewed 02/04/20 @ 10:59 by Pili May) Acute exacerbation of CHF (congestive heart failure) (Acute) Acute kidney injury superimposed on CKD (Acute) Elevated d-dimer (Acute) Status post transcatheter aortic valve replacement (Acute) Thrombocytopenia (Acute) Upper GI bleed (Acute) Anemia (Acute) EDGARDO likely CRS vs patient of advanced kidney disease CKD 4 baseline in the 3 range LE edema CHF The patient is not interested in renal replacement therapy at this time. Will check renal ultrasound and UA. Will discuss again with him about renal replacement therapy tomorrow. Further w/u per clinical course Thanks for consult d/w patient CRYSTAL and MARCO A
[2020-07-11 13:38] LABS: Color, Urine Yellow (Yellow); Glucose, Dipstick Normal (Normal); Ketone-Dipstick Negative (Negative); Leukocyte Esterase-Dipstick Negative /ul (Negative); Nitrite-Dipstick Negative (Negative); Occult Blood-Urine Negative /ul (Negative); Protein-Dipstick 30 mg/dl (Negative); Specific Gravity, Urine 1.015 (1.002-1.030); Urine Bilirubin Dipstick Negative (Negative); Urine Clarity Clear (Clear); Urine Urobilinogen Normal (Normal)
--- NOTE | 2020-07-11 14:08 | PN_ITS ---
<Michelle Sher TOP EXECUTIVE - Last Filed: 07/11/20 14:28> Patient Problems: Active and Suspected Problems (Last Reviewed 02/04/20 @ 10:59 by Pili Gonzalez itt) Acute exacerbation of CHF (congestive heart failure) (Acute) Acute kidney injury superimposed on CKD (Acute) Elevated d-dimer (Acute) Status post transcatheter aortic valve replacement (Acute) Thrombocytopenia (Acute) Subjective: Patient seen and examined. States breathing has improved. Reports concern regarding his kidneys and states he is hoping he does not need to go on dialysis. Denies other symptoms or complaints. - Physical Exam Vitals/I&O's: Vital Signs Temp Pulse Resp BP Pulse Ox 97.8 F 70 16 132/55 H 96 07/11/20 08:16 07/11/20 13:33 07/11/20 13:33 07/11/20 08:16 07/11/20 08:16 Oxygen Flow Rate (L/min) 3 Oxygen Delivery Method Nasal Cannula Weight: 261 lb 14.546 oz Body Mass Index (BMI) 38.3 Finger Stick Blood Glucose 269 Intake and Output for Last 24 Hours 07/09/20 07/10/20 07/11/20 23:59 23:59 23:59 Intake Total 240 / 240 660 / 860 680 / 680 Output Total 375 / 375 2485 / 2960 2125 / 2125 Balance -135 / -135 -1825 / -2100 -1445 / -1445 General: Alert, Oriented x3, Cooperative HEENT: Atraumatic, PERRLA, EOMI, Normocephalic, - - Left lateral eye scleral abnormality/tumor appearance Neck: Supple, No JVD, Negative Carotid Bruits Lungs: Clear to auscultation, Diminished Cardiovascular: Regular rate, Murmur Abdomen: Bowel Sounds Present, Soft, Non Tender, Non-Distended Extremities: No clubbing, No cyanosis, Capillary Refill Less than 3 Seconds, Edema - Bilateral lower extremities Skin: No rashes, No breakdown Musculoskeletal: No Tenderness to Palpation of Joints or Extremities Neurological: Cranial nerves II-XII grossly intact, Neuro grossly intact Psych/Mental Status: Normal Affect, Appropriate Laboratory Results 07/10/20 11:50: POC Glucose 79 07/10/20 17:04: POC Glucose 151 H 07/10/20 21:00: POC Glucose 90 07/11/20 04:44: WBC 8.9, RBC 3.64 L, Hgb 9.5 L, Hct 31.8 L, MCV 87.4, MCH 26.1 L , MCHC 29.9 L, RDW Std Deviation 57.2 H, RDW Coeff of Judi 18.4 H, Plt Count 140 L, MPV 9.4, Immature Gran % (Auto) 1.700 H, Neut % (Auto) 79.5 H, Lymph % (Auto) 8.3 L, [place] % (Auto) 7.9, Eos % (Auto) 2.4, Baso % (Auto) 0.2, Absolute Neuts (auto) 7.1, Absolute Lymphs (auto) 0.74 L, Nucleated RBC % 0 07/11/20 04:44: Sodium 143, Potassium 4.1, Chloride 109 H, Carbon Dioxide 24.0, Anion Gap 10, BUN 139 H*, Creatinine 4.31 H, Estim Creat Clear Calc 16.18, Est GFR (MDRD) Af Amer 18 L, Est GFR (MDRD) Non-Af 15 L, BUN/Creatinine Ratio 32.3 H , Glucose 69 L, Calcium 8.7, Magnesium 2.6 07/11/20 08:14: POC Glucose 76 07/11/20 10:48: POC Glucose 120 H 07/11/20 12:56: Urine Color Yellow, Urine Clarity Clear, Urine pH 6.0, Ur Specific Leland 1.015, Urine Protein 30 H, Urine Glucose (UA) Normal, Urine Ketones Negative, Urine Occult Blood Negative, Urine Nitrite Negative, Urine Bilirubin Negative, Urine Urobilinogen Normal, Ur Leukocyte Esterase Negative, Urine RBC 0 SEEN, Urine WBC 0 SEEN, Ur Squamous Epith Cells 0 SEEN, Urine Bacteria 0 SEEN, Urine Mucus 0 SEEN Current Medications Acetaminophen (Acetaminophen 325 Mg Tablet) 650 mg PO Q6H PRN PRN PRN Reason: Pain Score 1-10/Temp > 100.7 F Al Hydroxide/Mg Hydroxide (Mag Hydrox/Al Hydrox/Simeth 30 Ml Udc) 30 ml PO Q6H PRN PRN PRN Reason: Gastric Burning Last Admin: 07/10/20 20:06 Dose: 30 ml Documented by: Albuterol Sulfate (Albuterol 2.5 Mg/3 Ml Vial.Neb.) 2.5 mg INHALATION Q2H PRN PRN PRN Reason: Dyspnea, wheezing Albuterol/Ipratropium (Ipratropium/Albuterol Sulfate 3 Ml Ampul.Neb) 3 ml INHALATION Q6HWA.RT [facility] Last Admin: 07/11/20 13:33 Dose: 3 ml Documented by: Allopurinol (Allopurinol 100 Mg Tablet) 100 mg PO DAILY [facility] Last Admin: 07/11/20 08:30 Dose: 100 mg Documented by: Amlodipine Besylate (Amlodipine 5 Mg Tablet) 5 mg PO BID [facility] Last Admin: 07/11/20 08:29 Dose: 5 mg Documented by: Aspirin (Aspirin E.C. 81 Mg Tablet) 81 mg PO DAILY [facility] Last Admin: 07/11/20 08:28 Dose: 81 mg Documented by: Fluoxetine HCl (Fluoxetine 20 Mg Capsule) 40 mg PO DAILY [facility] Last Admin: 07/11/20 08:29 Dose: 40 mg Documented by: Furosemide (Furosemide 100 Mg/10 Ml Vial) 60 mg IV Q8 [facility] Last Admin: 07/11/20 05:37 Dose: 60 mg Documented by: Guaifenesin (Guaifenesin 10 Ml Udc (200mg/10ml)) 20 ml PO Q4H PRN PRN PRN Reason: COUGH Hydralazine HCl (Hydralazine 20 Mg/Ml Vial) 10 mg IV Q4H PRN PRN PRN Reason: SBP > 160 Insulin Glargine (Insulin Glargine 100 Units/Ml Pen) 50 units SC 0800,2200 [facility] Last Admin: 07/11/20 08:27 Dose: 50 units Documented by: Insulin Human Lispro (Insulin Lispro 100 Unit/Ml Insuln.Pen) 36 unit SC TIDCM [facility] Last Admin: 07/11/20 10:49 Dose: Not Given Documented by: Insulin Human Lispro (Insulin Lispro 100 Unit/Ml Insuln.Pen) 0 unit SC ACHS [facility]; Protocol Last Admin: 07/11/20 10:48 Dose: Not Given Documented by: Isosorbide Mononitrate (Isosorbide Mononitrate 30 Mg Tablet) 30 mg PO DAILY [facility] Last Admin: 07/11/20 08:28 Dose: 30 mg Documented by: Melatonin (Melatonin 3 Mg Tablet) 3 mg PO QHS PRN PRN PRN Reason: INSOMNIA Metoprolol Tartrate (Metoprolol Tartrate 50 Mg Tablet) 50 mg PO BID [facility] Last Admin: 07/11/20 08:28 Dose: 50 mg Documented by: Morphine Sulfate (Morphine 2 Mg/Ml Syringe) 2 mg IV Q3H PRN PRN PRN Reason: Pain Score 6-10 Nitroglycerin (Nitroglycerin (Inpatient Use) 0.4 Mg Tab.Subl) 0.4 mg SL Q5M PRN PRN Reason: CARDIAC/CHEST PAIN Ondansetron HCl (Ondansetron 4 Mg/2 Ml Vial) 4 mg IV Q8H PRN PRN PRN Reason: NAUSEA/VOMITING Oxycodone HCl (Oxycodone 5 Mg Tablet) 5 mg PO Q4H PRN PRN PRN Reason: Pain Score 4-5 Pantoprazole Sodium (Pantoprazole Sodium 40 Mg Tablet) 40 mg PO DAILY [facility] Last Admin: 07/11/20 08:29 Dose: 40 mg Documented by: Prochlorperazine Edisylate (Prochlorperazine 10 Mg/2 Ml Vial) 5 mg IV Q4H PRN PRN PRN Reason: Breakthrough Nausea/Vomiting Psyllium Hydrophilic Mucilloid (Psyllium 1 Packet) 1 packet PO DAILY PRN PRN PRN Reason: Constipation Senna/Docusate Sodium (Senna/Docusate Sodium 1 Tablet) 2 tablet PO BID PRN PRN PRN Reason: Constipation Throat Lozenges (Benzocaine/Menthol 1 Lozenge) 1 lozenge MUCOUS MEM Q2H PRN PRN PRN Reason: SORE THROAT Trazodone HCl (Trazodone 50 Mg Tablet) 50 mg PO QHS PRN PRN Reason: SLEEP Last Admin: 07/10/20 22:14 Dose: 50 mg Documented by: Medical Necessity - Tobacco Use Smoking Status: Former smoker Tobacco Use: Non-smoker Assessment/Plan All Active Problems (Last Reviewed 02/04/20 @ 10:59 by Pili May) Acute exacerbation of CHF (congestive heart failure) (Acute) Acute kidney injury superimposed on CKD (Acute) Elevated d-dimer (Acute) Status post transcatheter aortic valve replacement (Acute) Thrombocytopenia (Acute) Upper GI bleed (Acute) Anemia (Acute) 1. Acute on chronic heart failure with preserved ejection fraction-BNP 482. Increased swelling, dyspnea. Echocardiogram demonstrates an EF of 60%, mild mitral valve insufficiency. Cardiology following. Continue IV Lasix. Strict I&O. Daily weight. 2. Recent TAVR secondary to severe aortic stenosis-appears stable per echo. 3. Acute kidney injury on chronic kidney disease stage IV-nephrology following. Renal ultrasound and UA pending. Nephrology recommending potential dialysis, patient is hesitant at this time. Trend BMP. 4. Chronic normocytic anemia/mild thrombocytopenia-stable, trend CBC. 5. CAD with history of PTCA/CABG-continue medical management. On aspirin, fenofibrate, isosorbide, metoprolol. 6. Type 2 diabetes mellitus-oral regimen on hold. Accu-Cheks with sliding scale insulin. 7. COPD with chronic hypoxic respiratory failure-continue supplement oxygen to maintain O2 at above 90%. As needed albuterol aerosol. 8. History of GI bleed-continue PPI. 9. Hypertension-stable, continue amlodipine, isosorbide, metoprolol. 10. Hyperlipidemia continue fenofibrate. 11. Anxiety/depression-on fluoxetine. DVT prophylaxis- Heparin sc This patient was seen by SIGIFREDO Tong under the supervision of Dr. Saleh. <Liz Saleh - Last Filed: 07/11/20 16:11> Subjective: I agree with the above and the following is a representation my independent history and physical examination. Patient was sleeping soundly upon my arrival but awakens easily with exam. Initially indicates that he does not want to go on dialysis but after discussion with he and his knowing that he could stop if it becomes uncomfortable or problematic or chronic thing he seems to be more willing. He will consider this further and discuss further with Dr. Espinoza and his and will make a decision for tomorrow. - Physical Exam Vitals/I&O's: Vital Signs Temp Pulse Resp BP Pulse Ox 97.8 F 70 16 132/55 H 95 07/11/20 08:16 07/11/20 13:33 07/11/20 13:33 07/11/20 08:16 07/11/20 14:59 Oxygen Flow Rate (L/min) 4 Oxygen Delivery Method Nasal Cannula Weight: 118.8 kg Body Mass Index (BMI) 38.3 Finger Stick Blood Glucose 269 Intake and Output for Last 24 Hours 07/09/20 07/10/20 07/11/20 23:59 23:59 23:59 Intake Total 240 / 240 660 / 860 680 / 680 Output Total 375 / 375 2485 / 2960 2124 / 2124 Balance -135 / -135 -1825 / -2100 -1445 / -1445 General: Alert, Oriented x3, Cooperative, No apparent distress, Well developed, Well nourished, - - Obese white male lying in bed on right side sleeping but awakens easily, nontoxic HEENT: Atraumatic, PERRLA, EOMI, Normocephalic, - - Left lateral eye scleral abnormality/tumor appearance-agree Oral: Moist Mucosa, No Gingival or Mucosal Lesions/ Ulcerations Neck: Supple, Trachea Midline, Thyroid Normal Size and Texture Lungs: No rhonchi, No wheeze, No rales, Diminished - Bilateral bases, - - Signs of respiratory distress Cardiovascular: Regular rate, Regular Rhythm, Normal S1, Normal S2, No Ectopic Activity, Murmur, No rub noted, No Gallop Abdomen: Bowel Sounds Present, Soft, Non Tender, Non-Distended, Obese Extremities: No clubbing, No cyanosis, Capillary Refill Less than 3 Seconds, Edema - Bilateral lower extremities-2+ bilateral lower extremity pitting, Peripheral Pulses Normal Skin: No rashes, No breakdown Musculoskeletal: No Tenderness to Palpation of Joints or Extremities, No Muscle Wasting, Arthritic Changes Neurological: Cranial nerves II-XII grossly intact, Neuro grossly intact, Muscle tone normal, Coordination normal Psych/Mental Status: Normal Affect, Appropriate Laboratory Results 07/10/20 17:04: POC Glucose 151 H 07/10/20 21:00: POC Glucose 90 07/11/20 04:44: WBC 8.9, RBC 3.64 L, Hgb 9.5 L, Hct 31.8 L, MCV 87.4, MCH 26.1 L , MCHC 29.9 L, RDW Std Deviation 57.2 H, RDW Coeff of Judi 18.4 H, Plt Count 140 L, MPV 9.4, Immature Gran % (Auto) 1.700 H, Neut % (Auto) 79.5 H, Lymph % (Auto) 8.3 L, [place] % (Auto) 7.9, Eos % (Auto) 2.4, Baso % (Auto) 0.2, Absolute Neuts (auto) 7.1, Absolute Lymphs (auto) 0.74 L, Nucleated RBC % 0 04/12/21 04:44: Sodium 143, Potassium 4.1, Chloride 109 H, Carbon Dioxide 24.0, Anion Gap 10, BUN 139 H*, Creatinine 4.31 H, Estim Creat Clear Calc 16.18, Est GFR (MDRD) Af Amer 18 L, Est GFR (MDRD) Non-Af 15 L, BUN/Creatinine Ratio 32.3 H , Glucose 69 L, Calcium 8.7, Magnesium 2.6 07/11/20 08:14: POC Glucose 76 07/11/20 10:48: POC Glucose 120 H 07/11/20 12:56: Urine Color Yellow, Urine Clarity Clear, Urine pH 6.0, Ur Specific Leland 1.015, Urine Protein 30 H, Urine Glucose (UA) Normal, Urine Ketones Negative, Urine Occult Blood Negative, Urine Nitrite Negative, Urine Bilirubin Negative, Urine Urobilinogen Normal, Ur Leukocyte Esterase Negative, Urine RBC 0 SEEN, Urine WBC 0 SEEN, Ur Squamous Epith Cells 0 SEEN, Urine Bacteria 0 SEEN, Urine Mucus 0 SEEN Current Medications Acetaminophen (Acetaminophen 325 Mg Tablet) 650 mg PO Q6H PRN PRN PRN Reason: Pain Score 1-10/Temp > 100.7 F Al Hydroxide/Mg Hydroxide (Mag Hydrox/Al Hydrox/Simeth 30 Ml Udc) 30 ml PO Q6H PRN PRN PRN Reason: Gastric Burning Last Admin: 07/10/20 20:06 Dose: 30 ml Documented by: Albuterol Sulfate (Albuterol 2.5 Mg/3 Ml Vial.Neb.) 2.5 mg INHALATION Q2H PRN PRN PRN Reason: Dyspnea, wheezing Albuterol/Ipratropium (Ipratropium/Albuterol Sulfate 3 Ml Ampul.Neb) 3 ml INHALATION Q6HWA.RT [facility] Last Admin: 07/11/20 13:33 Dose: 3 ml Documented by: Allopurinol (Allopurinol 100 Mg Tablet) 100 mg PO DAILY [facility] Last Admin: 07/11/20 08:30 Dose: 100 mg Documented by: Amlodipine Besylate (Amlodipine 5 Mg Tablet) 5 mg PO BID [facility] Last Admin: 07/11/20 08:29 Dose: 5 mg Documented by: Aspirin (Aspirin E.C. 81 Mg Tablet) 81 mg PO DAILY [facility] Last Admin: 07/11/20 08:28 Dose: 81 mg Documented by: Fluoxetine HCl (Fluoxetine 20 Mg Capsule) 40 mg PO DAILY [facility] Last Admin: 07/11/20 08:29 Dose: 40 mg Documented by: Furosemide (Furosemide 100 Mg/10 Ml Vial) 60 mg IV Q8 [facility] Last Admin: 07/11/20 05:37 Dose: 60 mg Documented by: Guaifenesin (Guaifenesin 10 Ml Udc (200mg/10ml)) 20 ml PO Q4H PRN PRN PRN Reason: COUGH Heparin Sodium (Porcine) (Heparin Injection (Vial) 5,000 Unit/Ml Vial) 5,000 unit SC Q12 [facility] Hydralazine HCl (Hydralazine 20 Mg/Ml Vial) 10 mg IV Q4H PRN PRN PRN Reason: SBP > 160 Insulin Glargine (Insulin Glargine 100 Units/Ml Pen) 50 units SC 0800,2200 [facility] Last Admin: 07/11/20 08:27 Dose: 50 units Documented by: Insulin Human Lispro (Insulin Lispro 100 Unit/Ml Insuln.Pen) 36 unit SC TIDCM [facility] Last Admin: 07/11/20 10:49 Dose: Not Given Documented by: Insulin Human Lispro (Insulin Lispro 100 Unit/Ml Insuln.Pen) 0 unit SC ACHS [facility]; Protocol Last Admin: 07/11/20 10:48 Dose: Not Given Documented by: Isosorbide Mononitrate (Isosorbide Mononitrate 30 Mg Tablet) 30 mg PO DAILY [facility] Last Admin: 07/11/20 08:28 Dose: 30 mg Documented by: Melatonin (Melatonin 3 Mg Tablet) 3 mg PO QHS PRN PRN PRN Reason: INSOMNIA Metoprolol Tartrate (Metoprolol Tartrate 50 Mg Tablet) 50 mg PO BID [facility] Last Admin: 07/11/20 08:28 Dose: 50 mg Documented by: Morphine Sulfate (Morphine 2 Mg/Ml Syringe) 2 mg IV Q3H PRN PRN PRN Reason: Pain Score 6-10 Nitroglycerin (Nitroglycerin (Inpatient Use) 0.4 Mg Tab.Subl) 0.4 mg SL Q5M PRN PRN Reason: CARDIAC/CHEST PAIN Ondansetron HCl (Ondansetron 4 Mg/2 Ml Vial) 4 mg IV Q8H PRN PRN PRN Reason: NAUSEA/VOMITING Oxycodone HCl (Oxycodone 5 Mg Tablet) 5 mg PO Q4H PRN PRN PRN Reason: Pain Score 4-5 Pantoprazole Sodium (Pantoprazole Sodium 40 Mg Tablet) 40 mg PO DAILY [facility] Last Admin: 07/11/20 08:29 Dose: 40 mg Documented by: Prochlorperazine Edisylate (Prochlorperazine 10 Mg/2 Ml Vial) 5 mg IV Q4H PRN PRN PRN Reason: Breakthrough Nausea/Vomiting Psyllium Hydrophilic Mucilloid (Psyllium 1 Packet) 1 packet PO DAILY PRN PRN PRN Reason: Constipation Senna/Docusate Sodium (Senna/Docusate Sodium 1 Tablet) 2 tablet PO BID PRN PRN PRN Reason: Constipation Throat Lozenges (Benzocaine/Menthol 1 Lozenge) 1 lozenge MUCOUS MEM Q2H PRN PRN PRN Reason: SORE THROAT Trazodone HCl (Trazodone 50 Mg Tablet) 50 mg PO QHS PRN PRN Reason: SLEEP Last Admin: 07/10/20 22:14 Dose: 50 mg Documented by: Assessment/Plan ASSESSMENT Acute on chronic HFpEF Aortic stenosis status post TAVR EDGARDO on CKD stage IIIb Chronic anemia thrombocytopenia CAD status post PCI/CABG DM-two COPD Chronic hypoxic respiratory failure History of GI bleed Hypertension Hyperlipidemia Depression Anxiety OA Obesity-BMI 38.7 PLAN -Extensive discussion regarding patient's hesitancy to return to dialysis--> both he and his were involved with conversation -After discussion it sounds like he may be willing to try dialysis temporarily with the knowledge that he could discontinue it anytime -Fearful because previously he had syncopal episodes following dialysis at home -Would prefer to have a fistula formed--> discussed the patient in the acute setting would need to have a tunneled dialysis catheter placed and outpatient follow-up with Dr. Perez for fistula formation and this would need to mature prior to utilization -Patient will update us on his decision tomorrow and would like to discuss this further with Dr. Espinoza -Retroperitoneal ultrasound pending -Bilateral Dopplers pending -Echo done and shows preserved EF at 60%, stable bioprosthetic aortic valve, moderate pulmonary artery hypertension, diastolic dysfunction, biatrial enlargement -BUN is trending up and creatinine is relatively stable -Patient has been on dialysis in the past for approximately 2 months -Continue current regimen for ischemic control -Patient appears to remain volume overloaded -Nephrology following appreciate input--> per notes we will rediscuss dialysis with patient tomorrow Inpatient E&M: 82105 Subs Hosp L2
--- NOTE | 2020-07-11 16:17 | CASEMGMT ---
Pt qualifies for palliative referral via [facility] palliative screening tool and Dr. Saleh is agreeble to c/s. Referral faxed and called to palliative. Jaylan STRICKLAND CM
[2020-07-11] MEDS: Insulin Lispro 100 UNIT/ML INSULN.PEN 36 UNIT SC (16:58)
[2020-07-11] MEDS: Insulin Lispro 100 UNIT/ML INSULN.PEN SC ×2 (16:58→21:46)
[2020-07-11 17:56] LABS: Bedside Glucose 299 mg/dL (70-110)
[2020-07-11] MEDS: Mag Hydrox/Al Hydrox/Simeth 30 ML UDC PO (18:55)
[2020-07-11] MEDS: Heparin Injection (Vial) 5,000 UNIT/ML VIAL 5000 UNIT SC (21:48)
[2020-07-11] MEDS: traZODone 50 MG Tablet PO (21:56)
[2020-07-11 23:36] LABS: Bedside Glucose 161 mg/dL (70-110)
[2020-07-12] VITALS (16 sets, daily range): BP systolic 123–143; BP diastolic 56–64; PULSE 63–76; RESP 12–22; TEMP 36.4–36.7; O2SAT 93–97
[2020-07-12] MEDS: Furosemide 100 MG/10 ML Vial 60 MG IV ×3 (05:14→22:33)
[2020-07-12 07:05] LABS: Hematocrit 30.8 % (40-54); Hemoglobin 9.3 g/dL (13.0-16.5); Mean Corp Hgb Conc 30.2 g/dL (32-36); Mean Corpuscular Hgb 26.7 pg (27.0-32.0); Mean Corpuscular Volume 88.5 fL (80-94); Mean Platelet Vol. 10.5 fl (6.2-12.0); Platelet Count 127 K/mm3 (150-450); RBC Distribution Width CV 18.3 % (11.6-14.6); RBC Distribution Width SD 58.3 fl (35.1-43.9); Red Blood Count 3.48 M/mm3 (4.6-6.2); White Blood Count 8.5 K/mm3 (4.4-11.0)
[2020-07-12] MEDS: Ipratropium/Albuterol Sulfate 3 ML AMPUL.NEB INHALATION ×3 (07:29→18:50)
[2020-07-12 07:42] LABS: Anion Gap 10 (5-15); BUN 143 mg/dL (7-18); BUN/Creat Ratio 33.9 RATIO (10-20); Calcium,Total 8.5 mg/dL (8.5-10.1); Chloride 107 mmol/L (98-107); Creatinine, Serum 4.22 mg/dL (0.70-1.30); EST Glomerular Filtration Rate 15 mL/min (>60); Est Glom Filt Rate - Afr Amer 18 mL/min (>60); Estimated Creatinine Clearance 16.52 ml/min; Glucose 162 mg/dL (74-106); Potassium 4.7 mmol/L (3.5-5.1); Sodium Level 141 mmol/L (136-145)
[2020-07-12] MEDS: Allopurinol 100 MG Tablet PO (08:30)
[2020-07-12] MEDS: Metoprolol Tartrate 50 MG Tablet PO ×2 (08:31→22:31)
[2020-07-12] MEDS: Isosorbide Mononitrate 30 MG Tablet PO (08:31)
[2020-07-12] MEDS: Heparin Injection (Vial) 5,000 UNIT/ML VIAL 5000 UNIT SC (08:31)
[2020-07-12] MEDS: Aspirin E.C. 81 MG Tablet PO (08:31)
[2020-07-12] MEDS: FLUoxetine 20 MG Capsule 40 MG PO (08:31)
[2020-07-12] MEDS: amLODIPine 5 MG Tablet PO ×2 (08:31→22:31)
[2020-07-12] MEDS: Pantoprazole Sodium 40 MG Tablet PO (08:32)
[2020-07-12] MEDS: Insulin Lispro 100 UNIT/ML INSULN.PEN SC ×3 (08:33→16:30)
[2020-07-12 09:41] LABS: Bedside Glucose 161 mg/dL (70-110)
--- NOTE | 2020-07-12 10:15 | PCM.CONS.P ---
Problem List (1) Dyspnea on exertion Status: Chronic (2) Acute exacerbation of CHF (congestive heart failure) Status: Acute Qualifiers: Heart failure type: unspecified Qualified Code(s): I50.9 - Heart failure, unspecified (3) Acute kidney injury superimposed on CKD Status: Acute (4) Elevated d-dimer Status: Acute (5) Status post transcatheter aortic valve replacement Status: Acute (6) Thrombocytopenia Status: Acute (7) Chronic anemia Status: Chronic (8) Anxiety and depression Status: Chronic (9) Chronic obstructive pulmonary disease (COPD) Status: Chronic Qualifiers: COPD type: unspecified COPD Qualified Code(s): J44.9 - Chronic obstructive pulmonary disease, unspecified (10) Chronic respiratory failure with hypoxia Status: Chronic (11) History of GI bleed Status: Chronic (12) Kidney disease, chronic, stage IV (GFR 15-29 ml/min) Status: Chronic (13) COPD (chronic obstructive pulmonary disease) Status: Chronic Qualifiers: Chronic bronchitis type: unspecified (14) Sleep apnea Status: Chronic Qualifiers: Sleep apnea type: unspecified type Qualified Code(s): G47.30 - Sleep apnea, unspecified (15) Type 2 diabetes mellitus Status: Chronic Qualifiers: 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: with chcf use Diabetes mellitus complication status: with other specified complication Qualified Code(s): E11.69 - Type 2 diabetes mellitus with other specified complication; Z79.4 - intermediate (current) use of insulin (16) Presence of stent in coronary artery Status: Chronic Comment: 07/18/10, PTCA/stent to mid to distal LCx artery; 08/17/10 PTCA/stent to proximal to mid RCA; PTCA of distal RCA with DEX September 2010; PTCA with EULALIO to mid distal AV groove left CFX 08/13 (17) Essential hypertension Status: Chronic (18) Nonrheumatic aortic (valve) stenosis Status: Chronic (19) Diastolic dysfunction Status: Chronic (20) Other chcf (current) drug therapy Status: Chronic (21) Atherosclerotic heart disease of [place] coronary artery without angina pectoris Status: Chronic Qualifiers: [place] vs. transplanted heart: [place] heart Qualified Code(s): I25.10 - Atherosclerotic heart disease of [place] coronary artery without angina pectoris Comment: S/P multivessel PTCA/stent and subsequent CABG with SVG to LCx, RCA and diagonal branch with subsequent SVG graft closure to the LCx and diagonal branch; (22) S/P CABG x 3 Status: Chronic Comment: CABG-SVG to diagonal, SVG to obtuse marginal & SVG to PDA 07/12; (23) GERD (gastroesophageal reflux disease) Status: Chronic Qualifiers: Esophagitis presence: esophagitis presence not specified Qualified Code(s): K21.9 - Gastro-esophageal reflux disease without esophagitis History of Present Illness Date of Consult: 07/12/20 Reason for Consult: SOB, severe COPD Requesting physician: [] Primary care physician: Dr. Davon Lemus MD - History of Present Illness The patient is a 70 year old M with PMH as below, presented to the ED with complaints of a 2-week history of increased shortness of breath, weight gain, and orthopnea. Patient had a TAVR 06/10/2028 at [facility] and was feeling fine until 2 weeks ago. Patient has significant CKD, not requiring chronic hemodialysis. Patient was admitted for further evaluation and management for suspected acute decompensated CHF and respiratory failure. Seen today for initial palliative care consultation for symptom management of shortness of breath. Chest x-ray showed nothing acute, D-dimer was elevated. Repeat echocardiogram showed an estimated EF of 60%, moderate to severe mitral annular calcification, mildly enlarged right atrium and moderately enlarged left atrium, mild MVI, trivial TVI and PVI, RVSP estimated at 43 mmHg, and findings suggestive of diastolic dysfunction. Venous Dopplers were negative for acute DVT. Cardiology was consulted and recommended continuing IV diuretic therapy. Nephrology consulted as well, concerned that recent procedures with IV contrast contributed to progression of renal insufficiency. Ordered renal ultrasound and UA, discussed renal replacement therapy but patient declined at this time, however might be agreeable to temporary dialysis as he was on it before. Renal ultrasound showed some cysts, otherwise nothing acute. Patient lives at home with his in a two-story home, 3 steps to enter. He is typically independent at home for most ADLs, assists as needed. DME in the home include shower chair, cane, walker, Rollator, BiPAP, and oxygen at 4 L per nasal cannula with portability through [employer]. Patient follows with cardiology Dr. Green, nephrology Dr. Parikh, and pulmonology Dr. Reid. He uses [facility] for his pharmacy. His , Diana Gardner, is his HCPOA, has a living will as well. Patient plans to return home with family support once ready for discharge. Patient does not take any inhalers at home. His typical home dose of Lasix is 80 mg twice daily. Follows with Dr. Reid as an outpatient, not currently on any inhalers. Receiving scheduled duo nebs and as needed albuterol. Baseline oxygen requirement of [address] Reid 04/20/2019, states he has not followed up routinely due to Covid pandemic and cannot do telehealth visits. It was recommended at that time he get a repeat PSG secondary to weight gain. Unclear if this was ever completed. It appears his last PFTs were in 2014, which showed evidence of significantly worsened COPD. Patient reports his shortness of breath is somewhat improved with IV diuresis. He does not complain of any pain, no nausea/vomiting/diarrhea. Bowels are moving okay. Most of conversation was about his past experiences seeing angels. He required frequent redirection and discussing palliative care and services. His was present during evaluation. They are both interested in services and would like a follow-up with RN once discharged home. Patient Problems: Chronic Problems (Last Reviewed 02/04/20 @ 10:59 by Pili May) Chronic anemia (Chronic) Anxiety and depression (Chronic) Chronic obstructive pulmonary disease (COPD) (Chronic) Chronic respiratory failure with hypoxia (Chronic) Diabetes mellitus, type II (Chronic) History of GI bleed (Chronic) Chronic kidney disease (Chronic) Dyspnea on exertion (Chronic) Kidney disease, chronic, stage IV (GFR 15-29 ml/min) (Chronic) COPD (chronic obstructive pulmonary disease) (Chronic) Sleep apnea (Chronic) Nephrotic range proteinuria (Chronic) Pure hypercholesterolemia (Chronic) Type 2 diabetes mellitus (Chronic) Presence of stent in coronary artery (Chronic ~08/25/14) 07/18/10, PTCA/stent to mid to distal LCx artery; 08/17/10 PTCA/stent to proximal to mid RCA; PTCA of distal RCA with DEX September 2010; PTCA with EULALIO to mid distal AV groove left CFX 08/13 Essential hypertension (Chronic) Nonrheumatic aortic (valve) stenosis (Chronic) Nonspecific abnormal unspecified cardiovascular function study (Chronic) Diastolic dysfunction (Chronic) Other chcf (current) drug therapy (Chronic) Atherosclerotic heart disease of [place] coronary artery without angina pectoris (Chronic) S/P multivessel PTCA/stent and subsequent CABG with SVG to LCx, RCA and diagonal branch with subsequent SVG graft closure to the LCx and diagonal branch; S/P CABG x 3 (Chronic ~07/21/12) CABG-SVG to diagonal, SVG to obtuse marginal & SVG to PDA 07/12; GERD (gastroesophageal reflux disease) (Chronic) Anxiety (Chronic) Surgical History: angioplasty, arthroscopy, knee, coronary bypass surgery, - - Patient status post CABG x3, serial PCI, bilateral total knee replacement, rotator cuff repair, partial colectomy, cholecystectomy, carpal tunnel surgery, recent TAVR 05/2020. Psychiatric History: Anxiety, Depression Home Medications: Ambulatory Orders Medication Instructions Recorded Nitroglycerin (INPATIENT USE) 0.4 mg SUBLINGUAL Q5M PRN 10/27/13 [Nitrostat] berberine-herbal comb no.18 capsule 2 cap PO BID cap 02/24/18 Allopurinol 100 mg PO DAILY 02/25/19 Astaxanthin 4 mg PO DAILY 02/25/19 Fluoxetine HCl 40 mg PO DAILY 02/25/19 Insulin Aspart [Novolog Flexpen] 36 units SUBCUT TIDCM 02/25/19 Ubidecarenone [Co Q-10] 400 mg PO BID 11/10/19 fenofibrate 160 mg tablet 160 mg PO DAILY 02/04/20 insulin glargine 100 unit/mL (3 50 unit SUBCUT BID ml 02/04/20 mL) subcutaneous pen furosemide 80 mg tablet 80 mg PO BID #180 tab 05/16/20 isosorbide mononitrate 30 mg 30 mg PO DAILY #90 tab 05/16/20 tablet,extended release 24 hr metoprolol tartrate 50 mg tablet 50 mg PO BID #180 tab 05/20/20 amlodipine 5 mg tablet 5 mg PO BID #180 tab 06/03/20 Aspirin E.C. [Ecotrin] 81 mg PO DAILY@0800 06/30/20 Pantoprazole Sodium [Protonix] 40 mg PO DAILY 06/30/20 Metolazone [Zaroxolyn] 5 mg PO DAILY 07/09/20 traZODone [Desyrel] 50 mg PO QHS PRN PRN 07/10/20 Allergies carvedilol [From Coreg] Allergy (Severe, Verified 07/09/20 20:09) vomiting valsartan [From Diovan] Allergy (Severe, Verified 07/09/20 20:09) Possible angioedema, throat swelling sertraline HCl [From Zoloft] Allergy (Verified 07/09/20 20:09) Unknown makes me mean bupropion HCl [From Wellbutrin] Adverse Reaction (Verified 07/09/20 20:09) gets mean citalopram Adverse Reaction (Verified 07/09/20 20:09) Other gabapentin Adverse Reaction (Verified 07/09/20 20:09) Other Maternal Family History: Family History (Last Reviewed 07/12/20 @ 10:33 by SIGIFREDO Maxwell) Father CAD (coronary artery disease) Afib Aortic valve replaced Mother Cancer Son Lupus History Items: Cancer Paternal Family History: Family History (Last Reviewed 07/12/20 @ 10:33 by SIGIFREDO Maxwell) Father CAD (coronary artery disease) Afib Aortic valve replaced Mother Cancer Son Lupus History Items: High Cholesterol, Heart Disease - Atrial fibrillation; valvular heart disease status post aVR; , Hypertension - Social History Lives: Spouse/ Significant Other Smoking Status: Former smoker Tobacco Use: Non-smoker Alcohol: None Drugs: None Code Status: DNRCC-A Review of Systems Constitutional: Denies: Chills, Fever, Weight Change Eyes: Denies: Vision Change HEENT: Denies: Difficulty Swallowing, Head Aches, Nasal Congestion, Sinus Congestion, Sinus Drainage, Sore Throat Cardiovascular: Reports: Edema. Denies: Chest Pain, Light Headedness, Palpitations Respiratory: Reports: Shortness of Breath, Shortness of breath at rest. Denies: Cough, Hemoptysis, Sputum production, Wheezing Gastrointestinal: Denies: Abdominal Pain, Constipation, Diarrhea, Nausea, Vomiting Musculoskeletal: Reports: Joint Pain, Leg Pain Skin: Denies: Rash, Wounds Neurological: Reports: Numbness, Tingling. Denies: Change in Speech, Focal weakness Psychiatric: Reports: Anxiety, Depression. Denies: Homicidal Ideations, Suicidal Ideations Hematologic/ Lymphatic: Reports: Anemia, Easy Bruising. Denies: Easy Bleeding Physical Exam Subjective: Sitting up in recliner, no acute distress. Has no complaints. Wearing oxygen, states shortness of breath is improved. at bedside General: Alert, Oriented x3, Cooperative, No apparent distress HEENT: Atraumatic, Normocephalic Oral: Moist Mucosa, - - Edentulous Neck: Supple, No JVD Lungs: Diminished Cardiovascular: Regular rate, Regular Rhythm, Normal S1, Normal S2 Abdomen: Bowel Sounds Present, Soft, Non Tender, Distended, - Extremities: No cyanosis, Edema Skin: No rashes Neurological: Cranial nerves II-XII grossly intact Psych/Mental Status: Normal Affect, Appropriate Objective: Vital Signs Temp Pulse Resp BP Pulse Ox 98.0 F 69 18 123/62 H 96 07/12/20 08:21 07/12/20 08:31 07/12/20 08:21 07/12/20 08:31 07/12/20 08:21 Oxygen Flow Rate (L/min) 4 Oxygen Delivery Method Nasal Cannula Weight: 115.3 kg Body Mass Index (BMI) 38.3 Finger Stick Blood Glucose 269 Intake and Output for Last 24 Hours 07/10/20 07/11/20 07/12/20 23:59 23:59 23:59 Intake Total 660 / 860 1230 / 1230 Output Total 2485 / 2960 3825 / 3825 300 / 300 Balance -1825 / -2100 -2595 / -2595 -300 / -300 Laboratory Tests Past 24 Hrs 07/11/20 07/12/20 07/12/20 12:56 06:20 06:20 WBC 8.5 RBC 3.48 L Hgb 9.3 L Hct 30.8 L MCV 88.5 MCH 26.7 L MCHC 30.2 L RDW Std Deviation 58.3 H RDW Coeff of Judi 18.3 H Plt Count 127 L MPV 10.5 Sodium 141 Potassium 4.7 Chloride 107 Carbon Dioxide 24.0 Anion Gap 10 BUN 143 H* Creatinine 4.22 H Estim Creat Clear Calc 16.52 Est GFR (MDRD) Af Amer 18 L Est GFR (MDRD) Non-Af 15 L BUN/Creatinine Ratio 33.9 H Glucose 162 H Calcium 8.5 Urine Color Yellow Urine Clarity Clear Urine pH 6.0 Ur Specific [place] 1.015 Urine Protein 30 H Urine Glucose (UA) Normal Urine Ketones Negative Urine Occult Blood Negative Urine Nitrite Negative Urine Bilirubin Negative Urine Urobilinogen Normal Ur Leukocyte Esterase Negative Urine RBC 0 SEEN Urine WBC 0 SEEN Ur Squamous Epith Cells 0 SEEN Urine Bacteria 0 SEEN Urine Mucus 0 SEEN Assessment/Plan All Active Problems (Last Reviewed 02/04/20 @ 10:59 by Pili May) Acute exacerbation of CHF (congestive heart failure) (Acute) Acute kidney injury superimposed on CKD (Acute) Elevated d-dimer (Acute) Status post transcatheter aortic valve replacement (Acute) Thrombocytopenia (Acute) Upper GI bleed (Acute) Anemia (Acute) 70-year-old male, recent TAVR, admitted for acute exacerbation of CHF, increased shortness of breath and lower extremity edema. Seen today for initial palliative care consultation regarding management of his shortness of breath in the setting of severe COPD. Not on any baseline inhalers. 1. Shortness of breath: Likely r/t fluid overload, acute CHF/renal failure. Currently being diuresed, possible temporary dialysis. His Lasix is at 60 mg IV every 8 hours. Would advise optimization with fluid status, then can consider medications to assist with shortness of breath in the future. Has DASHA so would caution w/sedating medications. He should follow-up closely with pulmonary. 2. Anxiety and depression: Controlled. No indication for pharmacological management. Takes fluoxetine 40 mg at home. Trazodone for sleep. 3. DASHA/COPD/CKD/anemia/T2DM/chronic hypoxic respiratory failure/CAD s/p CABG and recent TAVR/GERD/HTN: Complicates overall care, management, recovery, and prognosis. He is palliative care appropriate with his multiple comorbid conditions. Quality of life is fair at this time, would like to be able to do more at home independently. Goal is to reduce shortness of breath and improve quality of life. Thank you for the opportunity to participate in this patient's care, please do not hesitate to contact [facility] with any further questions or concerns. Palliative direct line is [phone]. We will have RN follow up approximately 3 days after discharge to home and will discuss palliative services further at that time. /POA (Diana) # [phone]. Greater than 50% of F2F visit dedicated to education and counseling of palliative care services, medications, comorbid conditions and potential assistance with management, and plan of care moving forward. Start time: 1003 End time: 1108
[2020-07-12] MEDS: Insulin Lispro 100 UNIT/ML INSULN.PEN 36 UNIT SC ×2 (11:30→16:29)
[2020-07-12 11:40] LABS: Bedside Glucose 223 mg/dL (70-110)
--- NOTE | 2020-07-12 11:44 | PCM.PROGNOTE ---
<Michelle Sher [employer] - Last Filed: 07/12/20 11:53> Patient Problems: Active and Suspected Problems (Last Reviewed 02/04/20 @ 10:59 by Pili May) Acute exacerbation of CHF (congestive heart failure) (Acute) Acute kidney injury superimposed on CKD (Acute) Elevated d-dimer (Acute) Status post transcatheter aortic valve replacement (Acute) Thrombocytopenia (Acute) Subjective: Patient seen and examined. Patient states he feels better about initiating dialysis today and willing to try temporary dialysis. He denies new symptoms or complaints. Palliative medicine met with patient today. - Physical Exam Vitals/I&O's: Vital Signs Temp Pulse Resp BP Pulse Ox 98.0 F 69 18 123/62 H 96 07/12/20 08:21 07/12/20 08:31 07/12/20 08:21 07/12/20 08:31 07/12/20 08:21 Oxygen Flow Rate (L/min) 4 Oxygen Delivery Method Nasal Cannula Weight: 254 lb 3.088 oz Body Mass Index (BMI) 38.3 Finger Stick Blood Glucose 269 Intake and Output for Last 24 Hours 07/10/20 07/11/20 07/12/20 23:59 23:59 23:59 Intake Total 660 / 860 1230 / 1230 Output Total 2485 / 2960 3825 / 3825 300 / 300 Balance -1825 / -2100 -2595 / -2595 -300 / -300 General: Alert, Oriented x3, Cooperative HEENT: Atraumatic, PERRLA, EOMI, Normocephalic Neck: Supple, No JVD, Negative Carotid Bruits Lungs: Clear to auscultation, Diminished Cardiovascular: Regular rate, Regular Rhythm, Murmur Abdomen: Bowel Sounds Present, Soft, Non Tender, Non-Distended, Obese Extremities: No clubbing, No cyanosis, Edema - Bilateral lower extremities Skin: No rashes, No breakdown Musculoskeletal: No Tenderness to Palpation of Joints or Extremities Neurological: Cranial nerves II-XII grossly intact, Neuro grossly intact Psych/Mental Status: Normal Affect, Appropriate Laboratory Results 07/11/20 12:56: Urine Color Yellow, Urine Clarity Clear, Urine pH 6.0, Ur Specific [place] 1.015, Urine Protein 30 H, Urine Glucose (UA) Normal, Urine Ketones Negative, Urine Occult Blood Negative, Urine Nitrite Negative, Urine Bilirubin Negative, Urine Urobilinogen Normal, Ur Leukocyte Esterase Negative, Urine RBC 0 SEEN, Urine WBC 0 SEEN, Ur Squamous Epith Cells 0 SEEN, Urine Bacteria 0 SEEN, Urine Mucus 0 SEEN 07/11/20 16:54: POC Glucose 299 H 07/11/20 21:42: POC Glucose 161 H 07/12/20 06:20: Sodium 141, Potassium 4.7, Chloride 107, Carbon Dioxide 24.0, Anion Gap 10, BUN 143 H*, Creatinine 4.22 H, Estim Creat Clear Calc 16.52, Est GFR (MDRD) Af Amer 18 L, Est GFR (MDRD) Non-Af 15 L, BUN/Creatinine Ratio 33.9 H, Glucose 162 H, Calcium 8.5 07/12/20 06:20: WBC 8.5, RBC 3.48 L, Hgb 9.3 L, Hct 30.8 L, MCV 88.5, MCH 26.7 L, MCHC 30.2 L, RDW Std Deviation 58.3 H, RDW Coeff of Judi 18.3 H, Plt Count 127 L, MPV 10.5 07/12/20 08:17: POC Glucose 161 H 07/12/20 11:27: POC Glucose 223 H Current Medications Acetaminophen (Acetaminophen 325 Mg Tablet) 650 mg PO Q6H PRN PRN PRN Reason: Pain Score 1-10/Temp > 100.7 F Al Hydroxide/Mg Hydroxide (Mag Hydrox/Al Hydrox/Simeth 30 Ml Udc) 30 ml PO Q6H PRN PRN PRN Reason: Gastric Burning Last Admin: 07/11/20 18:55 Dose: 30 ml Documented by: Albuterol Sulfate (Albuterol 2.5 Mg/3 Ml Vial.Neb.) 2.5 mg INHALATION Q2H PRN PRN PRN Reason: Dyspnea, wheezing Albuterol/Ipratropium (Ipratropium/Albuterol Sulfate 3 Ml Ampul.Neb) 3 ml INHALATION Q6HWA.RT [facility] Last Admin: 07/12/20 07:29 Dose: 3 ml Documented by: Allopurinol (Allopurinol 100 Mg Tablet) 100 mg PO DAILY [facility] Last Admin: 07/12/20 08:30 Dose: 100 mg Documented by: Amlodipine Besylate (Amlodipine 5 Mg Tablet) 5 mg PO BID [facility] Last Admin: 07/12/20 08:31 Dose: 5 mg Documented by: Aspirin (Aspirin E.C. 81 Mg Tablet) 81 mg PO DAILY [facility] Last Admin: 07/12/20 08:31 Dose: 81 mg Documented by: Fluoxetine HCl (Fluoxetine 20 Mg Capsule) 40 mg PO DAILY [facility] Last Admin: 07/12/20 08:31 Dose: 40 mg Documented by: Furosemide (Furosemide 100 Mg/10 Ml Vial) 60 mg IV Q8 [facility] Last Admin: 07/12/20 05:14 Dose: 60 mg Documented by: Guaifenesin (Guaifenesin 10 Ml Udc (200mg/10ml)) 20 ml PO Q4H PRN PRN PRN Reason: COUGH Heparin Sodium (Porcine) (Heparin Injection (Vial) 5,000 Unit/Ml Vial) 5,000 unit SC Q12 [facility] Last Admin: 07/12/20 08:31 Dose: 5,000 unit Documented by: Hydralazine HCl (Hydralazine 20 Mg/Ml Vial) 10 mg IV Q4H PRN PRN PRN Reason: SBP > 160 Insulin Glargine (Insulin Glargine 100 Units/Ml Pen) 50 units SC 0800,2200 [facility] Last Admin: 07/12/20 08:33 Dose: 50 units Documented by: Insulin Human Lispro (Insulin Lispro 100 Unit/Ml Insuln.Pen) 36 unit SC TIDCM [facility] Last Admin: 07/12/20 11:30 Dose: 36 u Documented by: Insulin Human Lispro (Insulin Lispro 100 Unit/Ml Insuln.Pen) 0 unit SC ACHS [facility]; Protocol Last Admin: 07/12/20 11:30 Dose: 2 units Documented by: Isosorbide Mononitrate (Isosorbide Mononitrate 30 Mg Tablet) 30 mg PO DAILY [facility] Last Admin: 07/12/20 08:31 Dose: 30 mg Documented by: Melatonin (Melatonin 3 Mg Tablet) 3 mg PO QHS PRN PRN PRN Reason: INSOMNIA Metoprolol Tartrate (Metoprolol Tartrate 50 Mg Tablet) 50 mg PO BID [facility] Last Admin: 07/12/20 08:31 Dose: 50 mg Documented by: Nitroglycerin (Nitroglycerin (Inpatient Use) 0.4 Mg Tab.Subl) 0.4 mg SL Q5M PRN PRN Reason: CARDIAC/CHEST PAIN Ondansetron HCl (Ondansetron 4 Mg/2 Ml Vial) 4 mg IV Q8H PRN PRN PRN Reason: NAUSEA/VOMITING Oxycodone HCl (Oxycodone 5 Mg Tablet) 5 mg PO Q4H PRN PRN PRN Reason: Pain Score 4-5 Pantoprazole Sodium (Pantoprazole Sodium 40 Mg Tablet) 40 mg PO DAILY [facility] Last Admin: 07/12/20 08:32 Dose: 40 mg Documented by: Prochlorperazine Edisylate (Prochlorperazine 10 Mg/2 Ml Vial) 5 mg IV Q4H PRN PRN PRN Reason: Breakthrough Nausea/Vomiting Psyllium Hydrophilic Mucilloid (Psyllium 1 Packet) 1 packet PO DAILY PRN PRN PRN Reason: Constipation Senna/Docusate Sodium (Senna/Docusate Sodium 1 Tablet) 2 tablet PO BID PRN PRN PRN Reason: Constipation Throat Lozenges (Benzocaine/Menthol 1 Lozenge) 1 lozenge MUCOUS MEM Q2H PRN PRN PRN Reason: SORE THROAT Trazodone HCl (Trazodone 50 Mg Tablet) 50 mg PO QHS PRN PRN Reason: SLEEP Last Admin: 07/11/20 21:56 Dose: 50 mg Documented by: Medical Necessity - Tobacco Use Smoking Status: Former smoker Tobacco Use: Non-smoker Assessment/Plan All Active Problems (Last Reviewed 02/04/20 @ 10:59 by Pili May) Acute exacerbation of CHF (congestive heart failure) (Acute) Acute kidney injury superimposed on CKD (Acute) Elevated d-dimer (Acute) Status post transcatheter aortic valve replacement (Acute) Thrombocytopenia (Acute) Upper GI bleed (Acute) Anemia (Acute) 1. Acute on chronic heart failure with preserved ejection fraction-BNP 482. Increased swelling, dyspnea. Echocardiogram demonstrates an EF of 60%, mild mitral valve insufficiency. Cardiology following. Continue IV Lasix. Strict I&O. Daily weight. 2. Recent TAVR secondary to severe aortic stenosis-appears stable per echo. 3. Acute kidney injury on chronic kidney disease stage IV-nephrology following. Renal ultrasound shows renal cysts, no hydronephrosis. Nephrology recommending potential dialysis, patient amendable at this time. Await further discussion with nephrology. Trend BMP. 4. Chronic normocytic anemia/mild thrombocytopenia-stable, trend CBC. 5. CAD with history of PTCA/CABG-continue medical management. On aspirin, fenofibrate, isosorbide, metoprolol. 6. Type 2 diabetes mellitus-oral regimen on hold. Accu-Cheks with sliding scale insulin. 7. COPD with chronic hypoxic respiratory failure-continue supplement oxygen to maintain O2 at above 90%. As needed albuterol aerosol. 8. History of GI bleed-continue PPI. 9. Hypertension-stable, continue amlodipine, isosorbide, metoprolol. 10. Hyperlipidemia continue fenofibrate. 11. Anxiety/depression-on fluoxetine. DVT prophylaxis- Heparin sc This patient was seen by SIGIFREDO Tong under the supervision of Dr. Saleh. <Liz Saleh - Last Filed: 07/12/20 15:08> Subjective: Patient indicates that he will likely be willing to initiate dialysis and see how he does. Ultimately he hopes for recovery of his renal function but is aware that this may not happen. - Physical Exam Vitals/I&O's: Vital Signs Temp Pulse Resp BP Pulse Ox 97.7 F L 72 18 138/64 H 96 07/12/20 14:20 07/12/20 14:20 07/12/20 14:20 07/12/20 14:20 07/12/20 14:20 Oxygen Flow Rate (L/min) 4 Oxygen Delivery Method Nasal Cannula Weight: 115.3 kg Body Mass Index (BMI) 38.3 Finger Stick Blood Glucose 269 Intake and Output for Last 24 Hours 07/10/20 07/11/20 07/12/20 23:59 23:59 23:59 Intake Total 660 / 860 1230 / 1230 240 / 240 Output Total 2485 / 2960 3825 / 3825 1000 / 1000 Balance -1825 / -2100 -2595 / -2595 -760 / -760 General: Alert, Oriented x3, Cooperative, No apparent distress, Well developed, Well nourished, - - Obese white male, sitting up in chair, appears older than stated age, at bedside HEENT: Atraumatic, PERRLA, EOMI, Normocephalic, EAC Clear Oral: Moist Mucosa Neck: Supple, Trachea Midline Lungs: No rhonchi, No wheeze, Diminished, Rales - Few scattered at bases Cardiovascular: Regular rate, Regular Rhythm, Normal S1, Normal S2, No Ectopic Activity, Murmur, No rub noted, No Gallop Abdomen: Bowel Sounds Present, Soft, Non Tender, Non-Distended, Obese Extremities: No clubbing, No cyanosis, Edema - Bilateral lower extremities 1+ pitting bilaterally Skin: No rashes, No breakdown Musculoskeletal: No Tenderness to Palpation of Joints or Extremities Neurological: Cranial nerves II-XII grossly intact, Neuro grossly intact Laboratory Results 07/11/20 16:54: POC Glucose 299 H 07/11/20 21:42: POC Glucose 161 H 07/12/20 06:20: Sodium 141, Potassium 4.7, Chloride 107, Carbon Dioxide 24.0, Anion Gap 10, BUN 143 H*, Creatinine 4.22 H, Estim Creat Clear Calc 16.52, Est GFR (MDRD) Af Amer 18 L, Est GFR (MDRD) Non-Af 15 L, BUN/Creatinine Ratio 33.9 H, Glucose 162 H, Calcium 8.5 07/12/20 06:20: WBC 8.5, RBC 3.48 L, Hgb 9.3 L, Hct 30.8 L, MCV 88.5, MCH 26.7 L, MCHC 30.2 L, RDW Std Deviation 58.3 H, RDW Coeff of Judi 18.3 H, Plt Count 127 L, MPV 10.5 07/12/20 08:17: POC Glucose 161 H 07/12/20 11:27: POC Glucose 223 H Current Medications Acetaminophen (Acetaminophen 325 Mg Tablet) 650 mg PO Q6H PRN PRN PRN Reason: Pain Score 1-10/Temp > 100.7 F Al Hydroxide/Mg Hydroxide (Mag Hydrox/Al Hydrox/Simeth 30 Ml Udc) 30 ml PO Q6H PRN PRN PRN Reason: Gastric Burning Last Admin: 07/11/20 18:55 Dose: 30 ml Documented by: Albuterol Sulfate (Albuterol 2.5 Mg/3 Ml Vial.Neb.) 2.5 mg INHALATION Q2H PRN PRN PRN Reason: Dyspnea, wheezing Albuterol/Ipratropium (Ipratropium/Albuterol Sulfate 3 Ml Ampul.Neb) 3 ml INHALATION Q6HWA.RT [facility] Last Admin: 07/12/20 13:54 Dose: 3 ml Documented by: Allopurinol (Allopurinol 100 Mg Tablet) 100 mg PO DAILY [facility] Last Admin: 07/12/20 08:30 Dose: 100 mg Documented by: Amlodipine Besylate (Amlodipine 5 Mg Tablet) 5 mg PO BID [facility] Last Admin: 07/12/20 08:31 Dose: 5 mg Documented by: Aspirin (Aspirin E.C. 81 Mg Tablet) 81 mg PO DAILY [facility] Last Admin: 07/12/20 08:31 Dose: 81 mg Documented by: Fluoxetine HCl (Fluoxetine 20 Mg Capsule) 40 mg PO DAILY [facility] Last Admin: 07/12/20 08:31 Dose: 40 mg Documented by: Furosemide (Furosemide 100 Mg/10 Ml Vial) 60 mg IV Q8 [facility] Last Admin: 07/12/20 14:37 Dose: 60 mg Documented by: Guaifenesin (Guaifenesin 10 Ml Udc (200mg/10ml)) 20 ml PO Q4H PRN PRN PRN Reason: COUGH Heparin Sodium (Porcine) (Heparin Injection (Vial) 5,000 Unit/Ml Vial) 5,000 unit SC Q12 [facility] Last Admin: 07/12/20 08:31 Dose: 5,000 unit Documented by: Hydralazine HCl (Hydralazine 20 Mg/Ml Vial) 10 mg IV Q4H PRN PRN PRN Reason: SBP > 160 Insulin Glargine (Insulin Glargine 100 Units/Ml Pen) 50 units SC 0800,2200 [facility] Last Admin: 07/12/20 08:33 Dose: 50 units Documented by: Insulin Human Lispro (Insulin Lispro 100 Unit/Ml Insuln.Pen) 36 unit SC TIDCM [facility] Last Admin: 07/12/20 11:30 Dose: 36 u Documented by: Insulin Human Lispro (Insulin Lispro 100 Unit/Ml Insuln.Pen) 0 unit SC ACHS [facility]; Protocol Last Admin: 07/12/20 11:30 Dose: 2 units Documented by: Isosorbide Mononitrate (Isosorbide Mononitrate 30 Mg Tablet) 30 mg PO DAILY [facility] Last Admin: 07/12/20 08:31 Dose: 30 mg Documented by: Melatonin (Melatonin 3 Mg Tablet) 3 mg PO QHS PRN PRN PRN Reason: INSOMNIA Metoprolol Tartrate (Metoprolol Tartrate 50 Mg Tablet) 50 mg PO BID [facility] Last Admin: 07/12/20 08:31 Dose: 50 mg Documented by: Nitroglycerin (Nitroglycerin (Inpatient Use) 0.4 Mg Tab.Subl) 0.4 mg SL Q5M PRN PRN Reason: CARDIAC/CHEST PAIN Ondansetron HCl (Ondansetron 4 Mg/2 Ml Vial) 4 mg IV Q8H PRN PRN PRN Reason: NAUSEA/VOMITING Oxycodone HCl (Oxycodone 5 Mg Tablet) 5 mg PO Q4H PRN PRN PRN Reason: Pain Score 4-5 Pantoprazole Sodium (Pantoprazole Sodium 40 Mg Tablet) 40 mg PO DAILY [facility] Last Admin: 07/12/20 08:32 Dose: 40 mg Documented by: Prochlorperazine Edisylate (Prochlorperazine 10 Mg/2 Ml Vial) 5 mg IV Q4H PRN PRN PRN Reason: Breakthrough Nausea/Vomiting Psyllium Hydrophilic Mucilloid (Psyllium 1 Packet) 1 packet PO DAILY PRN PRN PRN Reason: Constipation Senna/Docusate Sodium (Senna/Docusate Sodium 1 Tablet) 2 tablet PO BID PRN PRN PRN Reason: Constipation Throat Lozenges (Benzocaine/Menthol 1 Lozenge) 1 lozenge MUCOUS MEM Q2H PRN PRN PRN Reason: SORE THROAT Trazodone HCl (Trazodone 50 Mg Tablet) 50 mg PO QHS PRN PRN Reason: SLEEP Last Admin: 07/11/20 21:56 Dose: 50 mg Documented by: Assessment/Plan ASSESSMENT Acute on chronic HFpEF Aortic stenosis status post TAVR EDGARDO on CKD stage IIIb Chronic anemia thrombocytopenia CAD status post PCI/CABG DM-two COPD Chronic hypoxic respiratory failure History of GI bleed Hypertension Hyperlipidemia Depression Anxiety OA Obesity-BMI 38.7 PLAN -Retroperitoneal ultrasound showed renal cysts but otherwise was unremarkable -Bilateral lower extremity Dopplers showed no clots -Patient is agreeable to dialysis -General surgery has been consulted for tunneled dialysis catheter placement -Patient to follow-up in the outpatient setting for fistula creation -BUN continues to trend up and serum creatinine remained stable, patient remains significantly volume overloaded -Fasting blood sugar was 162 -Patient remains on 4 L nasal cannula -Suspect dialysis will be initiated either later today or tomorrow Inpatient E&M: [id number] [facility] Hosp L2
--- NOTE | 2020-07-12 13:05 | PN.RENAL_ITS ---
Patient Problems: Active and Suspected Problems (Last Reviewed 02/04/20 @ 10:59 by Pili May) Acute exacerbation of CHF (congestive heart failure) (Acute) Acute kidney injury superimposed on CKD (Acute) Elevated d-dimer (Acute) Status post transcatheter aortic valve replacement (Acute) Thrombocytopenia (Acute) Subjective: no sob at rest no cp - Physical Exam Vitals/I&O's: Vital Signs Temp Pulse Resp BP Pulse Ox 98.0 F 69 18 123/62 H 96 07/12/20 08:21 07/12/20 08:31 07/12/20 08:21 07/12/20 08:31 07/12/20 08:21 Oxygen Flow Rate (L/min) 4 Oxygen Delivery Method Nasal Cannula Weight: 115.3 kg Body Mass Index (BMI) 38.3 Finger Stick Blood Glucose 269 Intake and Output for Last 24 Hours 07/10/20 07/11/20 07/12/20 23:59 23:59 23:59 Intake Total 660 / 860 1230 / 1230 Output Total 2485 / 2960 3825 / 3825 300 / 300 Balance -1825 / -2100 -2595 / -2595 -300 / -300 General: Alert, Cooperative HEENT: Atraumatic, EOMI Neck: Supple Lungs: Clear to auscultation, Normal air movement Cardiovascular: Regular rate, Regular Rhythm, Normal S1, Normal S2 Abdomen: Bowel Sounds Present, Soft, Non Tender, Non-Distended, Obese Extremities: Edema Skin: No rashes Laboratory Results 07/11/20 12:56: Urine Color Yellow, Urine Clarity Clear, Urine pH 6.0, Ur Specific [place] 1.015, Urine Protein 30 H, Urine Glucose (UA) Normal, Urine Ketones Negative, Urine Occult Blood Negative, Urine Nitrite Negative, Urine Bilirubin Negative, Urine Urobilinogen Normal, Ur Leukocyte Esterase Negative, Urine RBC 0 SEEN, Urine WBC 0 SEEN, Ur Squamous Epith Cells 0 SEEN, Urine Bacteria 0 SEEN, Urine Mucus 0 SEEN 07/11/20 16:54: POC Glucose 299 H 07/11/20 21:42: POC Glucose 161 H 07/12/20 06:20: Sodium 141, Potassium 4.7, Chloride 107, Carbon Dioxide 24.0, Anion Gap 10, BUN 143 H*, Creatinine 4.22 H, Estim Creat Clear Calc 16.52, Est GFR (MDRD) Af Amer 18 L, Est GFR (MDRD) Non-Af 15 L, BUN/Creatinine Ratio 33.9 H , Glucose 162 H, Calcium 8.5 07/12/20 06:20: WBC 8.5, RBC 3.48 L, Hgb 9.3 L, Hct 30.8 L, MCV 88.5, MCH 26.7 L , MCHC 30.2 L, RDW Std Deviation 58.3 H, RDW Coeff of Judi 18.3 H, Plt Count 127 L, MPV 10.5 07/12/20 08:17: POC Glucose 161 H 07/12/20 11:27: POC Glucose 223 H Current Medications Acetaminophen (Acetaminophen 325 Mg Tablet) 650 mg PO Q6H PRN PRN PRN Reason: Pain Score 1-10/Temp > 100.7 F Al Hydroxide/Mg Hydroxide (Mag Hydrox/Al Hydrox/Simeth 30 Ml Udc) 30 ml PO Q6H PRN PRN PRN Reason: Gastric Burning Last Admin: 07/11/20 18:55 Dose: 30 ml Documented by: Albuterol Sulfate (Albuterol 2.5 Mg/3 Ml Vial.Neb.) 2.5 mg INHALATION Q2H PRN PRN PRN Reason: Dyspnea, wheezing Albuterol/Ipratropium (Ipratropium/Albuterol Sulfate 3 Ml Ampul.Neb) 3 ml INHALATION Q6HWA.RT [facility] Last Admin: 07/12/20 07:29 Dose: 3 ml Documented by: Allopurinol (Allopurinol 100 Mg Tablet) 100 mg PO DAILY [facility] Last Admin: 07/12/20 08:30 Dose: 100 mg Documented by: Amlodipine Besylate (Amlodipine 5 Mg Tablet) 5 mg PO BID [facility] Last Admin: 07/12/20 08:31 Dose: 5 mg Documented by: Aspirin (Aspirin E.C. 81 Mg Tablet) 81 mg PO DAILY [facility] Last Admin: 07/12/20 08:31 Dose: 81 mg Documented by: Fluoxetine HCl (Fluoxetine 20 Mg Capsule) 40 mg PO DAILY [facility] Last Admin: 07/12/20 08:31 Dose: 40 mg Documented by: Furosemide (Furosemide 100 Mg/10 Ml Vial) 60 mg IV Q8 [facility] Last Admin: 07/12/20 05:14 Dose: 60 mg Documented by: Guaifenesin (Guaifenesin 10 Ml Udc (200mg/10ml)) 20 ml PO Q4H PRN PRN PRN Reason: COUGH Heparin Sodium (Porcine) (Heparin Injection (Vial) 5,000 Unit/Ml Vial) 5,000 unit SC Q12 [facility] Last Admin: 07/12/20 08:31 Dose: 5,000 unit Documented by: Hydralazine HCl (Hydralazine 20 Mg/Ml Vial) 10 mg IV Q4H PRN PRN PRN Reason: SBP > 160 Insulin Glargine (Insulin Glargine 100 Units/Ml Pen) 50 units SC 0800,2200 [facility] Last Admin: 07/12/20 08:33 Dose: 50 units Documented by: Insulin Human Lispro (Insulin Lispro 100 Unit/Ml Insuln.Pen) 36 unit SC TIDCM [facility] Last Admin: 07/12/20 11:30 Dose: 36 u Documented by: Insulin Human Lispro (Insulin Lispro 100 Unit/Ml Insuln.Pen) 0 unit SC ACHS [facility]; Protocol Last Admin: 07/12/20 11:30 Dose: 2 units Documented by: Isosorbide Mononitrate (Isosorbide Mononitrate 30 Mg Tablet) 30 mg PO DAILY [facility] Last Admin: 07/12/20 08:31 Dose: 30 mg Documented by: Melatonin (Melatonin 3 Mg Tablet) 3 mg PO QHS PRN PRN PRN Reason: INSOMNIA Metoprolol Tartrate (Metoprolol Tartrate 50 Mg Tablet) 50 mg PO BID [facility] Last Admin: 07/12/20 08:31 Dose: 50 mg Documented by: Nitroglycerin (Nitroglycerin (Inpatient Use) 0.4 Mg Tab.Subl) 0.4 mg SL Q5M PRN PRN Reason: CARDIAC/CHEST PAIN Ondansetron HCl (Ondansetron 4 Mg/2 Ml Vial) 4 mg IV Q8H PRN PRN PRN Reason: NAUSEA/VOMITING Oxycodone HCl (Oxycodone 5 Mg Tablet) 5 mg PO Q4H PRN PRN PRN Reason: Pain Score 4-5 Pantoprazole Sodium (Pantoprazole Sodium 40 Mg Tablet) 40 mg PO DAILY [facility] Last Admin: 07/12/20 08:32 Dose: 40 mg Documented by: Prochlorperazine Edisylate (Prochlorperazine 10 Mg/2 Ml Vial) 5 mg IV Q4H PRN PRN PRN Reason: Breakthrough Nausea/Vomiting Psyllium Hydrophilic Mucilloid (Psyllium 1 Packet) 1 packet PO DAILY PRN PRN PRN Reason: Constipation Senna/Docusate Sodium (Senna/Docusate Sodium 1 Tablet) 2 tablet PO BID PRN PRN PRN Reason: Constipation Throat Lozenges (Benzocaine/Menthol 1 Lozenge) 1 lozenge MUCOUS MEM Q2H PRN PRN PRN Reason: SORE THROAT Trazodone HCl (Trazodone 50 Mg Tablet) 50 mg PO QHS PRN PRN Reason: SLEEP Last Admin: 07/11/20 21:56 Dose: 50 mg Documented by: Medical Necessity - Tobacco Use Smoking Status: Former smoker Tobacco Use: Non-smoker Assessment/Plan All Active Problems (Last Reviewed 02/04/20 @ 10:59 by Pili May) Acute exacerbation of CHF (congestive heart failure) (Acute) Acute kidney injury superimposed on CKD (Acute) Elevated d-dimer (Acute) Status post transcatheter aortic valve replacement (Acute) Thrombocytopenia (Acute) Upper GI bleed (Acute) Anemia (Acute) EDGARDO likely CRS vs patient of advanced kidney disease CKD 4 baseline in the 3 range LE edema CHF The patient agrees now with dialysis. Major risks of dialysis including not limited to seizures stroke heart attack infection were discussed with the patient and his present at the bedside who voiced understanding and agrees to proceed with dialysis. Surgery consult was placed awaiting placement of tunneled dialysis catheter to initiate dialysis. AV fistula to be placed by vascular later on d/w patient his CRYSTAL and RN
--- NOTE | 2020-07-12 14:55 | PCM.CONS.GEN ---
Problem List (1) Acute exacerbation of CHF (congestive heart failure) Status: Acute Qualifiers: Heart failure type: unspecified Qualified Code(s): I50.9 - Heart failure, unspecified (2) Acute kidney injury superimposed on CKD Status: Acute Reason for Consult Date of Consultation: 07/12/20 Reason for Consultation: Acute on chronic renal failure. In need of dialysis access. History of Present Illness: The patient is a 70 year old M who presented to the ED with increased shortness of breath and bilateral lower extremity swelling worse on the left than the right. Patient had been placed on dialysis during a hospitalization in November of 2018. Dr. Brooks had placed a left IJ tunneled dialysis catheter. Patient was on dialysis at discharge for a short period of time prior to having the chest catheter removed in March of 2019. Patient has been following with a contracting analyst. He notes last month he had a TRANSCATHETER AORTIC VALVE REPLACEMENT (TAVR/LISA) W/ PROSTHETIC VALVE PERCUTANEOUS FEMORAL ARTERY APPROACH by Dr. Leon at the [facility]. He states he has been recovering well. He also notes having to be on portable oxygen 3 liters at home since his surgery at [facility]. He has a significant cardiac history including 9 myocardial infarctions as well as the procedure above. Patient states he has come to the understanding that he will need dialysis again. He states he was scheduled to be evaluated for a fistula creation, however COVID occurred and he was canceled. Past Medical History Past Medical History (Chronic Problems): Chronic Problems (Last Reviewed 02/04/20 @ 10:59 by Pili May) Chronic anemia (Chronic) Anxiety and depression (Chronic) Chronic obstructive pulmonary disease (COPD) (Chronic) Chronic respiratory failure with hypoxia (Chronic) Diabetes mellitus, type II (Chronic) History of GI bleed (Chronic) Chronic kidney disease (Chronic) Dyspnea on exertion (Chronic) Kidney disease, chronic, stage IV (GFR 15-29 ml/min) (Chronic) COPD (chronic obstructive pulmonary disease) (Chronic) Sleep apnea (Chronic) Nephrotic range proteinuria (Chronic) Pure hypercholesterolemia (Chronic) Type 2 diabetes mellitus (Chronic) Presence of stent in coronary artery (Chronic ~08/25/14) 07/18/10, PTCA/stent to mid to distal LCx artery; 08/17/10 PTCA/stent to proximal to mid RCA; PTCA of distal RCA with DEX September 2010; PTCA with EULALIO to mid distal AV groove left CFX 08/13 Essential hypertension (Chronic) Nonrheumatic aortic (valve) stenosis (Chronic) Nonspecific abnormal unspecified cardiovascular function study (Chronic) Diastolic dysfunction (Chronic) Other long-term (current) drug therapy (Chronic) Atherosclerotic heart disease of [place] coronary artery without angina pectoris (Chronic) S/P multivessel PTCA/stent and subsequent CABG with SVG to LCx, RCA and diagonal branch with subsequent SVG graft closure to the LCx and diagonal branch; S/P CABG x 3 (Chronic ~07/21/12) CABG-SVG to diagonal, SVG to obtuse marginal & SVG to PDA 07/12; GERD (gastroesophageal reflux disease) (Chronic) Anxiety (Chronic) Medical History: Medical History (Last Reviewed 07/12/20 @ 15:17 by Mary Jo ALFORD, PADerickC) COPD (chronic obstructive pulmonary disease) (Chronic) J44.9 Sleep apnea (Chronic) G47.30 Pure hypercholesterolemia (Chronic) E78.00 Type 2 diabetes mellitus (Chronic) E11.9 Presence of stent in coronary artery (Chronic) Onset Date: ~08/25/14 Z95.5 07/18/10, PTCA/stent to mid to distal LCx artery; 08/17/10 PTCA/stent to proximal to mid RCA; PTCA of distal RCA with DEX September 2010; PTCA with EULALIO to mid distal AV groove left CFX 08/13 Essential hypertension (Chronic) I10 Nonrheumatic aortic (valve) stenosis (Chronic) I35.0 Diastolic dysfunction (Chronic) I51.9 Atherosclerotic heart disease of [place] coronary artery without angina pectoris (Chronic) I25.10 S/P multivessel PTCA/stent and subsequent CABG with SVG to LCx, RCA and diagonal branch with subsequent SVG graft closure to the LCx and diagonal branch; GI bleed Onset Date: ~10/2019 K92.2 Aortic valve disease (Inactive) I35.9 Coronary atherosclerosis of [place] coronary artery (Inactive) I25.10 Diabetes mellitus (Inactive) E11.9 HTN (hypertension) (Inactive) I10 Allergies carvedilol [From Coreg] Allergy (Severe, Verified 07/09/20 20:09) vomiting valsartan [From Diovan] Allergy (Severe, Verified 07/09/20 20:09) Possible angioedema, throat swelling sertraline HCl [From Zoloft] Allergy (Verified 07/09/20 20:09) Unknown makes me mean bupropion HCl [From Wellbutrin] Adverse Reaction (Verified 07/09/20 20:09) gets mean citalopram Adverse Reaction (Verified 07/09/20 20:09) Other gabapentin Adverse Reaction (Verified 07/09/20 20:09) Other Home Medications: Ambulatory Orders Medication Instructions Recorded Nitroglycerin (INPATIENT USE) 0.4 mg SUBLINGUAL Q5M PRN 10/27/13 [Nitrostat] berberine-herbal comb no.18 capsule 2 cap PO BID cap 02/24/18 Allopurinol 100 mg PO DAILY 02/25/19 Astaxanthin 4 mg PO DAILY 02/25/19 Fluoxetine HCl 40 mg PO DAILY 02/25/19 Insulin Aspart [Novolog Flexpen] 36 units SUBCUT TIDCM 02/25/19 Ubidecarenone [Co Q-10] 400 mg PO BID 11/10/19 fenofibrate 160 mg tablet 160 mg PO DAILY 02/04/20 insulin glargine 100 unit/mL (3 50 unit SUBCUT BID ml 02/04/20 mL) subcutaneous pen furosemide 80 mg tablet 80 mg PO BID #180 tab 05/16/20 isosorbide mononitrate 30 mg 30 mg PO DAILY #90 tab 05/16/20 tablet,extended release 24 hr metoprolol tartrate 50 mg tablet 50 mg PO BID #180 tab 05/20/20 amlodipine 5 mg tablet 5 mg PO BID #180 tab 06/03/20 Aspirin E.C. [Ecotrin] 81 mg PO DAILY@0800 06/30/20 Pantoprazole Sodium [Protonix] 40 mg PO DAILY 06/30/20 Metolazone [Zaroxolyn] 5 mg PO DAILY 07/09/20 traZODone [Desyrel] 50 mg PO QHS PRN PRN 07/10/20 Surgical History: Surgical History (Last Reviewed 07/12/20 @ 15:17 by Mary Jo ALFORD, PADerickC) S/P CABG x 3 (Chronic) Onset Date: ~07/21/12 Z95.1 CABG-SVG to diagonal, SVG to obtuse marginal & SVG to PDA 07/12; History of colonoscopy Onset Date: ~12/2019 Z98.890 History of esophagogastroduodenoscopy (EGD) Onset Date: ~12/2019 Z98.890 History of bilateral knee replacement Z96.653 History of carpal tunnel repair Z98.890 History of cholecystectomy Z90.49 History of partial colectomy Z90.49 History of repair of rotator cuff Z98.890 Presence of coronary angioplasty implant and graft Z95.5 07/18/10, PTCA/stent to mid to distal LCx artery; 08/17/10 PTCA/stent to proximal to mid RCA; PTCA of distal RCA with DEX September 2010; PTCA with EULALIO to mid distal AV groove left CFX 08/13 S/P PTCA (percutaneous transluminal coronary angioplasty) (Inactive) Z98.61 07/18/10, PTCA/stent to mid to distal LCx artery; 08/17/10 PTCA/stent to proximal to mid RCA; PTCA of distal RCA with DEX September 2010; PTCA with EULALIO to mid distal AV groove left CFX 08/13 Surgical History: angioplasty, arthroscopy, knee, coronary bypass surgery, - - Patient status post CABG x3, serial PCI, bilateral total knee replacement, rotator cuff repair, partial colectomy, cholecystectomy, carpal tunnel surgery, recent TAVR 05/2020. Psychiatric History: Anxiety, Depression Lives: Spouse/ Significant Other Smoking Status: Former smoker Tobacco Use: Non-smoker Alcohol: None Drugs: None - *Family History Maternal Family History: Family History (Last Reviewed 07/12/20 @ 10:33 by SIGIFREDO Maxwell) Father CAD (coronary artery disease) Afib Aortic valve replaced Mother Cancer Son Lupus History Items: Cancer Paternal Family History: Family History (Last Reviewed 07/12/20 @ 10:33 by SIGIFREDO Maxwell) Father CAD (coronary artery disease) Afib Aortic valve replaced Mother Cancer Son Lupus History Items: High Cholesterol, Heart Disease - Atrial fibrillation; valvular heart disease status post aVR; , Hypertension Review of Systems Constitutional: Reports: Weight Change - increased HEENT: Denies: Head Aches, Sinus Congestion, Sinus Drainage Cardiovascular: Denies: Chest Pain, Palpitations Respiratory: Reports: Shortness of Breath Gastrointestinal: Denies: Abdominal Pain, Nausea, Vomiting Genitourinary: Reports: Retention. Denies: Dysuria Musculoskeletal: Reports: Leg Pain Skin: Denies: Rash, Wounds Neurological: Reports: Balance problems Psychiatric: Reports: Anxiety, Depression Hematologic/ Lymphatic: Reports: Anemia, Easy Bruising, Easy Bleeding Patient Problems: Active and Suspected Problems (Last Reviewed 02/04/20 @ 10:59 by Pili May) Acute exacerbation of CHF (congestive heart failure) (Acute) Acute kidney injury superimposed on CKD (Acute) Elevated d-dimer (Acute) Status post transcatheter aortic valve replacement (Acute) Thrombocytopenia (Acute) - Physical Exam Vitals/I&O's: Vital Signs Temp Pulse Resp BP Pulse Ox 97.7 F L 72 18 138/64 H 96 07/12/20 14:20 07/12/20 14:20 07/12/20 14:20 07/12/20 14:20 07/12/20 14:20 Oxygen Flow Rate (L/min) 4 Oxygen Delivery Method Nasal Cannula Weight: 254 lb 3.088 oz Body Mass Index (BMI) 38.3 Finger Stick Blood Glucose 269 Intake and Output for Last 24 Hours 07/10/20 07/11/20 07/12/20 23:59 23:59 23:59 Intake Total 660 / 860 1230 / 1230 240 / 240 Output Total 2485 / 2960 3825 / 3825 1000 / 1000 Balance -1825 / -2100 -2595 / -2595 -760 / -760 General: Alert, Oriented x3, Cooperative, - - Obtunded abdomen HEENT: Atraumatic, PERRLA, EOMI, Normocephalic Neck: Supple, No JVD, Negative Carotid Bruits Lungs: Clear to auscultation, Normal air movement Cardiovascular: Regular rate, No murmurs Abdomen: Distended, Obese Extremities: Edema - bilateral lower extremities. left worse than right Skin: No rashes, No breakdown Musculoskeletal: No Tenderness to Palpation of Joints or Extremities Neurological: Neuro grossly intact Psych/Mental Status: Normal Affect, Appropriate Laboratory Results 07/11/20 16:54: POC Glucose 299 H 07/11/20 21:42: POC Glucose 161 H 07/12/20 06:20: Sodium 141, Potassium 4.7, Chloride 107, Carbon Dioxide 24.0, Anion Gap 10, BUN 143 H*, Creatinine 4.22 H, Estim Creat Clear Calc 16.52, Est GFR (MDRD) Af Amer 18 L, Est GFR (MDRD) Non-Af 15 L, BUN/Creatinine Ratio 33.9 H, Glucose 162 H, Calcium 8.5 07/12/20 06:20: WBC 8.5, RBC 3.48 L, Hgb 9.3 L, Hct 30.8 L, MCV 88.5, MCH 26.7 L, MCHC 30.2 L, RDW Std Deviation 58.3 H, RDW Coeff of Judi 18.3 H, Plt Count 127 L, MPV 10.5 07/12/20 08:17: POC Glucose 161 H 07/12/20 11:27: POC Glucose 223 H Current Medications Acetaminophen (Acetaminophen 325 Mg Tablet) 650 mg PO Q6H PRN PRN PRN Reason: Pain Score 1-10/Temp > 100.7 F Al Hydroxide/Mg Hydroxide (Mag Hydrox/Al Hydrox/Simeth 30 Ml Udc) 30 ml PO Q6H PRN PRN PRN Reason: Gastric Burning Last Admin: 07/11/20 18:55 Dose: 30 ml Documented by: Albuterol Sulfate (Albuterol 2.5 Mg/3 Ml Vial.Neb.) 2.5 mg INHALATION Q2H PRN PRN PRN Reason: Dyspnea, wheezing Albuterol/Ipratropium (Ipratropium/Albuterol Sulfate 3 Ml Ampul.Neb) 3 ml INHALATION Q6HWA.RT [facility] Last Admin: 07/12/20 13:54 Dose: 3 ml Documented by: Allopurinol (Allopurinol 100 Mg Tablet) 100 mg PO DAILY [facility] Last Admin: 07/12/20 08:30 Dose: 100 mg Documented by: Amlodipine Besylate (Amlodipine 5 Mg Tablet) 5 mg PO BID [facility] Last Admin: 07/12/20 08:31 Dose: 5 mg Documented by: Aspirin (Aspirin E.C. 81 Mg Tablet) 81 mg PO DAILY [facility] Last Admin: 07/12/20 08:31 Dose: 81 mg Documented by: Fluoxetine HCl (Fluoxetine 20 Mg Capsule) 40 mg PO DAILY [facility] Last Admin: 07/12/20 08:31 Dose: 40 mg Documented by: Furosemide (Furosemide 100 Mg/10 Ml Vial) 60 mg IV Q8 [facility] Last Admin: 07/12/20 14:37 Dose: 60 mg Documented by: Guaifenesin (Guaifenesin 10 Ml Udc (200mg/10ml)) 20 ml PO Q4H PRN PRN PRN Reason: COUGH Heparin Sodium (Porcine) (Heparin Injection (Vial) 5,000 Unit/Ml Vial) 5,000 unit SC Q12 [facility] Last Admin: 07/12/20 08:31 Dose: 5,000 unit Documented by: Hydralazine HCl (Hydralazine 20 Mg/Ml Vial) 10 mg IV Q4H PRN PRN PRN Reason: SBP > 160 Insulin Glargine (Insulin Glargine 100 Units/Ml Pen) 50 units SC 0800,2200 [facility] Last Admin: 07/12/20 08:33 Dose: 50 units Documented by: Insulin Human Lispro (Insulin Lispro 100 Unit/Ml Insuln.Pen) 36 unit SC TIDCM [facility] Last Admin: 07/12/20 11:30 Dose: 36 u Documented by: Insulin Human Lispro (Insulin Lispro 100 Unit/Ml Insuln.Pen) 0 unit SC ACHS [facility]; Protocol Last Admin: 07/12/20 11:30 Dose: 2 units Documented by: Isosorbide Mononitrate (Isosorbide Mononitrate 30 Mg Tablet) 30 mg PO DAILY [facility] Last Admin: 07/12/20 08:31 Dose: 30 mg Documented by: Melatonin (Melatonin 3 Mg Tablet) 3 mg PO QHS PRN PRN PRN Reason: INSOMNIA Metoprolol Tartrate (Metoprolol Tartrate 50 Mg Tablet) 50 mg PO BID [facility] Last Admin: 07/12/20 08:31 Dose: 50 mg Documented by: Nitroglycerin (Nitroglycerin (Inpatient Use) 0.4 Mg Tab.Subl) 0.4 mg SL Q5M PRN PRN Reason: CARDIAC/CHEST PAIN Ondansetron HCl (Ondansetron 4 Mg/2 Ml Vial) 4 mg IV Q8H PRN PRN PRN Reason: NAUSEA/VOMITING Oxycodone HCl (Oxycodone 5 Mg Tablet) 5 mg PO Q4H PRN PRN PRN Reason: Pain Score 4-5 Pantoprazole Sodium (Pantoprazole Sodium 40 Mg Tablet) 40 mg PO DAILY [facility] Last Admin: 07/12/20 08:32 Dose: 40 mg Documented by: Prochlorperazine Edisylate (Prochlorperazine 10 Mg/2 Ml Vial) 5 mg IV Q4H PRN PRN PRN Reason: Breakthrough Nausea/Vomiting Psyllium Hydrophilic Mucilloid (Psyllium 1 Packet) 1 packet PO DAILY PRN PRN PRN Reason: Constipation Senna/Docusate Sodium (Senna/Docusate Sodium 1 Tablet) 2 tablet PO BID PRN PRN PRN Reason: Constipation Throat Lozenges (Benzocaine/Menthol 1 Lozenge) 1 lozenge MUCOUS MEM Q2H PRN PRN PRN Reason: SORE THROAT Trazodone HCl (Trazodone 50 Mg Tablet) 50 mg PO QHS PRN PRN Reason: SLEEP Last Admin: 07/11/20 21:56 Dose: 50 mg Documented by: Assessment/Plan All Active Problems (Last Reviewed 02/04/20 @ 10:59 by Pili May) Acute exacerbation of CHF (congestive heart failure) (Acute) Acute kidney injury superimposed on CKD (Acute) Elevated d-dimer (Acute) Status post transcatheter aortic valve replacement (Acute) Thrombocytopenia (Acute) Upper GI bleed (Acute) Anemia (Acute) I have been consulted in conjunction with Dr. Brooks. He will independently evaluate this patient. Impression: Acute on chronic renal failure. In need of dialysis access. Plan: Patient was discussed with Dr. Brooks. Dr. Brooks will plan to perform a right possible left chest tunneled dialysis catheter placement. Procedure details, risks and benefits have been explained. Patient has had the opportunity to ask and have questions answered. Patient verbally understands and agrees with the plan. NPO after midnight. Hold his blood thinners. Plan for procedure tomorrow approximately 10:30 AM. Thank you for allowing us to participate in this patient's care. Office Visits / Consults: [id number] IP Consult L3
[2020-07-12 17:01] LABS: Bedside Glucose 185 mg/dL (70-110)
[2020-07-12 17:04] LABS: Probe Check PASS; Specimen Processing Control PASS
--- NOTE | 2020-07-12 21:42 | PN.CARD_ITS ---
Subjectve: The patient denies chest pain. He believes his breathing has improved. He continues with lower extremity edema. He has decided to proceed with hemodia lysis therapy. Objective: Vital Signs Temp Pulse Resp BP Pulse Ox 97.5 F L 74 18 131/56 H 96 07/12/20 20:00 07/12/20 20:00 07/12/20 20:00 07/12/20 20:00 07/12/20 20:00 Oxygen Flow Rate (L/min) 4 Oxygen Delivery Method Nasal Cannula Weight: 254 lb 3.088 oz Body Mass Index (BMI) 38.3 Finger Stick Blood Glucose 269 Intake and Output for Last 24 Hours 07/10/20 07/11/20 07/12/20 23:59 23:59 23:59 Intake Total 660 / 860 1230 / 1230 480 / 480 Output Total 2485 / 2960 3825 / 3825 1900 / 1900 Balance -1825 / -2100 -2595 / -2595 -1420 / -1420 General: Awake, Alert, Oriented x 3, Cooperative, No Acute Distress, Obese HEENT: Atraumatic, Normocephalic, PERRL, EOMI, Sclera Non Icteric Neck: Supple, Good ROM Lungs: Clear to auscultation Cardiovascular: Regular Rhythm, Normal S1, Normal S2 Abdomen: Soft, Non Tender, Obese Extremities: Moderate RLE Edema, Moderate LLE Edema Neurological: No Focal Motor or Sensory Deficit Psych/Mental Status: Appropriate 07/12/20 06:20: Sodium 141, Potassium 4.7, Chloride 107, Carbon Dioxide 24.0, Anion Gap 10, BUN 143 H*, Creatinine 4.22 H, Est GFR (MDRD) Af Amer 18 L, Est GFR (MDRD) Non-Af 15 L, BUN/Creatinine Ratio 33.9 H, Glucose 162 H, Calcium 8.5 07/12/20 06:20: WBC 8.5, RBC 3.48 L, Hgb 9.3 L, Hct 30.8 L, MCV 88.5, MCH 26.7 L , MCHC 30.2 L, Plt Count 127 L, MPV 10.5 Rhythm: Sinus rhythm Echo: 07/11/2020 Interpretation Summary The study was technically difficult. Contrast injection was performed. Based upon the 2D echocardiographic and contrast enhanced images obtained there appears to be grossly normal left ventricular size, wall motion, and systolic function. The estimated ejection fraction is 60 %. The left atrium is moderately enlarged. The right atrium is mildly enlarged. There is moderate to severe mitral annular calcification. Extension of the mitral annular calcification onto the base of the posterior mitral valve leaflet. Mild (1+) mitral valve insufficiency. Trivial tricuspid valve insufficiency. Stable appearing bioprosthetic aortic valve apparatus. Trivial pulmonic valve insufficiency. Right ventricular systolic pressure estimated to be 43 mmHg. Transmitral diastolic flow velocities suggest diastolic dysfunction (pseudonormal pattern). Medical Necessity - Tobacco Use Smoking Status: Former smoker Tobacco Use: Non-smoker Assessment/Plan 1. Acute CHF The patient presents with concerns of acute CHF. The patient has recently undergone TAVR procedure at [facility] as noted. Prior to the TAVR procedure he did not require repeat coronary artery/graft revascularization therapy. Prior to the TAVR procedure his overall LV systolic function was considered preserved based upon the [facility] studies. His TAVR was evaluated with a TTE. It appears to be stable at this time. At the present time the patient will continue to be monitored. He will continue medical management which has included IV diuretic therapy. He is going to proceed with hemodialysis. 2. TAVR The patient has undergone recent TAVR procedure at [facility] as noted. As noted above. His TAVR appears stable at this time. 3. CAD status post PCI/CABG The patient was recently reassessed at [facility] with a cardiac catheterization. He did not require revascularization therapy. His troponin I levels have been negative. His ECG demonstrated no acute changes. He will continue medical management. 4. Hyperlipidemia The patient has had a history of being on and off various lipid-lowering agents in the past. He will need to continue lipid management as best as possible. 5. Hypertension The patient will continue antihypertensive therapy with adjustment taking into consideration his renal insufficiency. 6. Diabetes mellitus The patient will continue evaluation care per internal medicine. 7. Acute on chronic renal insufficiency The patient has had an increase in his creatinine levels. The etiology may be progression of his underlying renal insufficiency. However, there is a question whether or not his previous invasive procedures with IV contrast may have contributed to any progression of his renal insufficiency. His diminished renal function may be contributing to his volume related issues. At the present time he is continuing medical management. He has been receiving IV diuretics. He has decided to proceed with hemodialysis therapy. Comment: The above was discussed with the patient and his spouse. This note was generated using a voice recognition system and there may be incorrect words, spelling or punctuation that were not noted when reviewing the office note prior to saving.
[2020-07-12 22:45] LABS: Bedside Glucose 170 mg/dL (70-110)
[2020-07-13] VITALS (23 sets, daily range): BP systolic 122–159; BP diastolic 51–77; PULSE 61–80; RESP 12–20; TEMP 36.1–36.9; O2SAT 93–98; BMI 37.5
[2020-07-13 05:23] LABS: Hematocrit 31.1 % (40-54); Hemoglobin 9.1 g/dL (13.0-16.5); Mean Corp Hgb Conc 29.3 g/dL (32-36); Mean Corpuscular Hgb 25.8 pg (27.0-32.0); Mean Corpuscular Volume 88.1 fL (80-94); Platelet Count 147 K/mm3 (150-450); RBC Distribution Width CV 17.9 % (11.6-14.6); RBC Distribution Width SD 56.9 fl (35.1-43.9); Red Blood Count 3.53 M/mm3 (4.6-6.2); White Blood Count 9.6 K/mm3 (4.4-11.0)
[2020-07-13 05:37] LABS: International Normalized Ratio 1.3; Prothrombin Time (Protime)PT. 15.2 SECONDS (11.7-14.9)
[2020-07-13 05:41] LABS: Anion Gap 9 (5-15); BUN 146 mg/dL (7-18); BUN/Creat Ratio 35.2 RATIO (10-20); Calcium,Total 8.6 mg/dL (8.5-10.1); Chloride 108 mmol/L (98-107); Creatinine, Serum 4.15 mg/dL (0.70-1.30); EST Glomerular Filtration Rate 15 mL/min (>60); Est Glom Filt Rate - Afr Amer 18 mL/min (>60); Glucose 119 mg/dL (74-106); Potassium 4.2 mmol/L (3.5-5.1); Sodium Level 141 mmol/L (136-145)
--- NOTE | 2020-07-13 05:55 | EKG12_ITS ---
Test Reason : AM EKG Blood Pressure : / mmHG Vent. Rate : 070 BPM Atrial Rate : 070 BPM P-R Int : 180 ms QRS Dur : 102 ms QT Int : 450 ms P-R-T Axes : 039 065 105 degrees QTc Int : 486 ms Normal sinus rhythm Nonspecific T wave abnormality Prolonged QT Abnormal ECG Confirmed by JAE BACK, SADIE ([id number]), newspaper photo editor ROCÍO NORTON ([id number]) on 07/14/2020 11:38:44 AM Referred By: VIDA Confirmed By:SADIE ROWE MD
[2020-07-13 07:05] LABS: Bedside Glucose 124 mg/dL (70-110)
[2020-07-13] MEDS: Ipratropium/Albuterol Sulfate 3 ML AMPUL.NEB INHALATION ×2 (07:45→18:47)
[2020-07-13 07:57] LABS: Hemoglobin A1c 6.6 % (3.8-5.6)
--- NOTE | 2020-07-13 08:42 | PN.CARD_ITS ---
Subjectve: The patient is awake and alert. He denies any ongoing chest discomfort or worsening shortness of breath/dyspnea this morning. He continues with lower extremity edema. He is being prepared for dialysis catheter placement later this morning. Objective: Vital Signs Temp Pulse Resp BP Pulse Ox 97.9 F 72 20 H 124/60 H 93 07/13/20 06:56 07/13/20 07:59 07/13/20 07:59 07/13/20 06:56 07/13/20 07:59 Oxygen Flow Rate (L/min) 3 Oxygen Delivery Method Nasal Cannula Weight: 254 lb 3.088 oz Body Mass Index (BMI) 37.5 Finger Stick Blood Glucose 269 Intake and Output for Last 24 Hours 07/11/20 07/12/20 07/13/20 23:59 23:59 23:59 Intake Total 1230 / 1230 555 / 555 0 / 0 Output Total 3825 / 3825 2200 / 2200 100 / 100 Balance -2595 / -2595 -1645 / -1645 -100 / -100 General: Awake, Alert, Oriented x 3, Cooperative, No Acute Distress, Obese HEENT: Atraumatic, Normocephalic, PERRL, EOMI, Sclera Non Icteric Neck: Supple, Good ROM, No JVD Lungs: Clear to auscultation Cardiovascular: Regular Rhythm, Normal S1, Normal S2 Abdomen: Bowel Sounds Present, Soft, Obese Extremities: Moderate RLE Edema, Moderate LLE Edema Neurological: No Focal Motor or Sensory Deficit Psych/Mental Status: Appropriate 07/13/20 04:56: WBC 9.6, RBC 3.53 L, Hgb 9.1 L, Hct 31.1 L, MCV 88.1, MCH 25.8 L , MCHC 29.3 L, Plt Count 147 L, MPV 10.0 07/13/20 04:56: Sodium 141, Potassium 4.2, Chloride 108 H, Carbon Dioxide 24.0, Anion Gap 9, BUN 146 H*, Creatinine 4.15 H, Est GFR (MDRD) Af Amer 18 L, Est GFR (MDRD) Non-Af 15 L, BUN/Creatinine Ratio 35.2 H, Glucose 119 H, Calcium 8.6 07/13/20 04:56: PT 15.2 H, INR 1.3 07/13/20 04:56: Hemoglobin A1c 6.6 H Rhythm: Sinus rhythm Medical Necessity - Tobacco Use Smoking Status: Former smoker Tobacco Use: Non-smoker Assessment/Plan 1. Acute CHF The patient presents with concerns of acute CHF. The patient has recently undergone TAVR procedure at [facility] as noted. Prior to the TAVR procedure he did not require repeat coronary artery/graft revascularization therapy. Prior to the TAVR procedure his overall LV systolic function was considered preserved based upon the [facility] studies. His TAVR was evaluated with a TTE. It appears to be stable at this time. At the present time the patient will continue to be monitored. He will continue medical management which has included IV diuretic therapy. He is going to proceed with hemodialysis catheter placement this day. 2. TAVR The patient has undergone recent TAVR procedure at [facility] as noted. As noted above. His TAVR appears stable at this time. 3. CAD status post PCI/CABG The patient was recently reassessed at [facility] with a cardiac catheterization. He did not require revascularization therapy. His troponin I levels have been negative. His ECG demonstrated no acute changes. He will continue medical management. 4. Hyperlipidemia The patient has had a history of being on and off various lipid-lowering agents in the past. He will need to continue lipid management as best as possible. 5. Hypertension The patient will continue antihypertensive therapy with adjustment taking into consideration his renal insufficiency. 6. Diabetes mellitus The patient will continue evaluation care per internal medicine. 7. Acute on chronic renal insufficiency The patient has had an increase in his creatinine levels. At the present time he is continuing medical management. He has been receiving IV diuretics. He has decided to proceed with hemodialysis catheter placement this day. Comment: The above was discussed with the patient and his spouse (via telephone). This note was generated using a voice recognition system and there may be incorrect words, spelling or punctuation that were not noted when reviewing the office note prior to saving.
[2020-07-13] MEDS: Metoprolol Tartrate 50 MG Tablet PO ×2 (09:23→22:07)
--- NOTE | 2020-07-13 09:32 | NURSING ---
Addendum entered by Rupal Mack 07/13/20 09:42: Cefazoin sent with pt at this time for pre-op. Original Note: Transport here to take pt to surgery at this time. Used Urinal.
[2020-07-13] MEDS: Cefazolin 2 GM in 0.9% Normal Saline 100 ML IV (10:22)
--- NOTE | 2020-07-13 10:30 | VDUE_ITS ---
Reason For Study: fistula vein mapping Right Arm Left Arm Right cephalic vein is compressible. Left cephalic vein is compressible. Right Cephalic Vein at the shoulder Left Cephalic Vein at the shoulder measures .4 x .43 cm. measures .17 x .17 cm. Right Cephalic Vein mid bicep measures .43 Left Cephalic Vein at mid bicep measures .36 x .47 cm. x .35 cm. Right Cephalic Vein above antecub Left Cephalic Vein above antecub measures .4 measures .45 x .49 cm. x .39 cm. Right Cephalic Vein below antecub Left Cephalic Vein below antecub measures .4 measures .38 x .39 cm. x .42 cm. Right Cephalic Vein in the forearm Left Cephalic Vein in the forearm measures .36 x .37 cm. measures .39 x .43 cm. Right Cephalic Vein at the wrist measures .48 Left Cephalic Vein at the wrist measures .4 x .46 cm. x .39 cm. Right basilic vein is compressible. Cephalic vein is tortuous in the upper arm. Right Basilic Vein mid bicep measures .68 Left basilic vein is compressible. x .74 cm. Basilic vein at bicep measures .79 x .82 cm. Right Basilic Vein above antecub measures .65 Basilic vein above antecub measures .64 x .64 x .65 cm. cm. Right Basilic Vein below antecub measures .31 Basilic vein below antecub measures .22 x .22 x .34 cm. cm. Right Basilic Vein in the forearm Basilic vein in the forearm measures .16 measures .22 x .26 cm. x .18 cm. Right Basilic Vein at the wrist measures .22 Basilic vein at the wrist measures .17 x .15 x .26 cm. cm. Brachial art .5 x .55 cm Brachial art .5 x .5 cm Brachial art 83.4 cm/s Brachial art 108.9 cm/s Radial art .22 x .23 cm Radial art .21 x .24 cm Radial art 76.9 cm/s. Radial art 99.3 cm/s. VL/Saphenous Vein Mapping, Bilat Interpretation Summary Patent and compressible bilateral upper extremity cephalic and basilic veins as noted. It is of note that the left cephalic vein at the shoulder is more diminutive in size than the remainder of the cephalic vein. The cephalic vein in the upper arm is also very tortuous on the left. Bilateral radial and brachial arteries appear to be of normal diameter and flow Ordering Physician: Damian Brooks Performed By: Darwin Boykin, RVT ?
--- NOTE | 2020-07-13 10:49 | CASEMGMT ---
Addendum entered by Jil Encarnacion 07/13/20 15:51: Op notes and CXR faxed to [facility] admissions/[facility]. Jaylan STRICKLAND CM Original Note: Pt has been with [facility] for OP dialysis in the past and pt/ are agreeable to same after provided verbal list of local dialysis clinics. Referral placed in [facility] portal and [facility]ed to [facility] at this time. CM to follow. Pt getting tunnel cath placed today. Jaylan STRICKLAND CM
[2020-07-13] MEDS: Heparin 10,000 UNITS/10 ML Vial 10000 UNITS (10:50)
[2020-07-13] MEDS: Bupivacaine Mpf 0.5% 30 ML VIAL (10:54)
--- NOTE | 2020-07-13 11:00 | PCM.OPRPT ---
Problem List (1) Acute kidney injury superimposed on CKD Status: Acute Report of Operation Date of Procedure: 07/13/20 Pre-Operative Diagnosis: Acute kidney disease complicating chronic renal failure Post-Operative Diagnosis: Same Surgery/Procedure Performed:: Right internal jugular 19 cm precurved palindrome catheter placement Description of Surgical Findings:: Timeout and informed consent was obtained. 70-year-old gentleman was taken to the operating placed on the table underwent monitored anesthesia care. Ancef 2 g were given intravenously preoperatively. The right neck was sterilely prepped and draped. Ultrasound guidance was used to identify the right internal jugular vein. 1% lidocaine mixed 50-50 with 0.5% Marcaine was used as a local anesthetic. Total 16 cc was used. Local was instilled under ultrasound guidance. A micropuncture needle was inserted in the right internal jugular vein followed by cylinder wire advancement. Micropuncture sheath inserted. 035 J-wire was inserted. Fluoroscopy demonstrated good positioning. Local was instilled down upon the right chest wall. A 19 cm precurved palindrome catheter was tunneled from the chest to the neck. Serial dilatation was performed. The sheath dilator was inserted under fluoroscopic control. The dilator and wire were removed. The catheter advanced through the sheath. The sheath was split. The catheter was positioned at the SVC atrial junction. It aspirated easily was flushed with saline and then heparinized saline 2 cc per channel. It was secured the skin with interrupted 3-0 nylon. The neck site was closed with interrupted 5-0 Vicryl subdermal stitch. Steri-Strips Telfa OpSite applied to the neck and silver dressing to the exit site. Sponge and instrument and needle counts were reported to the surgeon to be correct. Blood loss was minimal. Specimens none. Drains none. Blood loss minimal. Damian Brooks M.D., F.A.C.S. Type of Anesthesia:: Local MAC Anesthesiologist: Denis Leonardo
--- NOTE | 2020-07-13 11:27 | PN_ITS ---
<Michelle Sher MEMORY CARE PROGRAM DIRECTOR - Last Filed: 07/13/20 11:35> Patient Problems: Active and Suspected Problems (Last Reviewed 07/12/20 @ 15:17 by Mary Jo ALFORD PA-C) Acute exacerbation of CHF (congestive heart failure) (Acute) Acute kidney injury superimposed on CKD (Acute) Elevated d-dimer (Acute) Status post transcatheter aortic valve replacement (Acute) Thrombocytopenia (Acute) Subjective: Patient seen and examined. To undergo dialysis catheter placement. Amendable to plan. Denies new symptoms or complaints. - Physical Exam Vitals/I&O's: Vital Signs Temp Pulse Resp BP Pulse Ox 97.2 F L 62 16 138/77 H 95 07/13/20 11:19 07/13/20 11:25 07/13/20 11:25 07/13/20 11:25 07/13/20 11:25 Oxygen Flow Rate (L/min) 2 Oxygen Delivery Method Nasal Cannula Weight: 254 lb 3.088 oz Body Mass Index (BMI) 37.5 Finger Stick Blood Glucose 269 Intake and Output for Last 24 Hours 07/11/20 07/12/20 07/13/20 23:59 23:59 23:59 Intake Total 1230 / 1230 555 / 555 110 / 110 Output Total 3825 / 3825 2200 / 2200 100 / 100 Balance -2595 / -2595 -1645 / -1645 General: Alert, Oriented x3, Cooperative HEENT: Atraumatic, PERRLA, EOMI, Normocephalic Neck: Supple, No JVD, Negative Carotid Bruits Lungs: Clear to auscultation, Diminished Cardiovascular: Regular rate, Regular Rhythm, Murmur Abdomen: Bowel Sounds Present, Soft, Non Tender, Non-Distended, Obese Extremities: No clubbing, No cyanosis, Edema - Bilateral lower extremities Skin: No rashes, No breakdown Musculoskeletal: No Tenderness to Palpation of Joints or Extremities Neurological: Cranial nerves II-XII grossly intact, Neuro grossly intact Psych/Mental Status: Normal Affect, Appropriate Laboratory Results 07/12/20 11:27: POC Glucose 223 H 07/12/20 15:48: COVID-19 ([facility]) Not Detected 07/12/20 16:28: POC Glucose 185 H 07/12/20 22:21: POC Glucose 170 H 07/13/20 04:56: WBC 9.6, RBC 3.53 L, Hgb 9.1 L, Hct 31.1 L, MCV 88.1, MCH 25.8 L , MCHC 29.3 L, RDW Std Deviation 56.9 H, RDW Coeff of Judi 17.9 H, Plt Count 147 L, MPV 10.0 07/13/20 04:56: Sodium 141, Potassium 4.2, Chloride 108 H, Carbon Dioxide 24.0, Anion Gap 9, BUN 146 H*, Creatinine 4.15 H, Estim Creat Clear Calc 16.80, Est GFR (MDRD) Af Amer 18 L, Est GFR (MDRD) Non-Af 15 L, BUN/Creatinine Ratio 35.2 H , Glucose 119 H, Calcium 8.6 07/13/20 04:56: PT 15.2 H, INR 1.3 07/13/20 04:56: Hemoglobin A1c 6.6 H 07/13/20 06:59: POC Glucose 124 H Current Medications Acetaminophen (Acetaminophen 325 Mg Tablet) 650 mg PO Q6H PRN PRN PRN Reason: Pain Score 1-10/Temp > 100.7 F Al Hydroxide/Mg Hydroxide (Mag Hydrox/Al Hydrox/Simeth 30 Ml Udc) 30 ml PO Q6H PRN PRN PRN Reason: Gastric Burning Last Admin: 07/11/20 18:55 Dose: 30 ml Documented by: Albuterol Sulfate (Albuterol 2.5 Mg/3 Ml Vial.Neb.) 2.5 mg INHALATION Q2H PRN PRN PRN Reason: Dyspnea, wheezing Albuterol/Ipratropium (Ipratropium/Albuterol Sulfate 3 Ml Ampul.Neb) 3 ml INHALATION Q6HWA.RT [facility] Last Admin: 07/13/20 07:45 Dose: 3 ml Documented by: Allopurinol (Allopurinol 100 Mg Tablet) 100 mg PO DAILY [facility] Last Admin: 07/13/20 09:24 Dose: Not Given Documented by: Amlodipine Besylate (Amlodipine 5 Mg Tablet) 5 mg PO BID [facility] Last Admin: 07/13/20 09:24 Dose: Not Given Documented by: Aspirin (Aspirin E.C. 81 Mg Tablet) 81 mg PO DAILY [facility] Last Admin: 07/12/20 08:31 Dose: 81 mg Documented by: Fluoxetine HCl (Fluoxetine 20 Mg Capsule) 40 mg PO DAILY [facility] Last Admin: 07/13/20 09:24 Dose: Not Given Documented by: Furosemide (Furosemide 100 Mg/10 Ml Vial) 60 mg IV Q8 [facility] Last Admin: 07/13/20 06:34 Dose: Not Given Documented by: Guaifenesin (Guaifenesin 10 Ml Udc (200mg/10ml)) 20 ml PO Q4H PRN PRN PRN Reason: COUGH Heparin Sodium (Porcine) (Heparin Injection (Vial) 5,000 Unit/Ml Vial) 5,000 unit SC Q12 [facility] Last Admin: 07/12/20 08:31 Dose: 5,000 unit Documented by: Hydralazine HCl (Hydralazine 20 Mg/Ml Vial) 10 mg IV Q4H PRN PRN PRN Reason: SBP > 160 Insulin Glargine (Insulin Glargine 100 Units/Ml Pen) 50 units SC 0800,2200 [facility] Last Admin: 07/13/20 09:26 Dose: Not Given Documented by: Insulin Human Lispro (Insulin Lispro 100 Unit/Ml Insuln.Pen) 36 unit SC TIDCM [facility] Last Admin: 07/13/20 07:41 Dose: Not Given Documented by: Insulin Human Lispro (Insulin Lispro 100 Unit/Ml Insuln.Pen) 0 unit SC ACHS [facility]; Protocol Last Admin: 07/13/20 07:40 Dose: Not Given Documented by: Isosorbide Mononitrate (Isosorbide Mononitrate 30 Mg Tablet) 30 mg PO DAILY [facility] Last Admin: 07/13/20 09:24 Dose: Not Given Documented by: Melatonin (Melatonin 3 Mg Tablet) 3 mg PO QHS PRN PRN PRN Reason: INSOMNIA Metoprolol Tartrate (Metoprolol Tartrate 50 Mg Tablet) 50 mg PO BID [facility] Last Admin: 07/13/20 09:23 Dose: 50 mg Documented by: Nitroglycerin (Nitroglycerin (Inpatient Use) 0.4 Mg Tab.Subl) 0.4 mg SL Q5M PRN PRN Reason: CARDIAC/CHEST PAIN Ondansetron HCl (Ondansetron 4 Mg/2 Ml Vial) 4 mg IV Q8H PRN PRN PRN Reason: NAUSEA/VOMITING Oxycodone HCl (Oxycodone 5 Mg Tablet) 5 mg PO Q4H PRN PRN PRN Reason: Pain Score 4-5 Pantoprazole Sodium (Pantoprazole Sodium 40 Mg Tablet) 40 mg PO DAILY [facility] Last Admin: 07/13/20 09:24 Dose: Not Given Documented by: Prochlorperazine Edisylate (Prochlorperazine 10 Mg/2 Ml Vial) 5 mg IV Q4H PRN PRN PRN Reason: Breakthrough Nausea/Vomiting Psyllium Hydrophilic Mucilloid (Psyllium 1 Packet) 1 packet PO DAILY PRN PRN PRN Reason: Constipation Senna/Docusate Sodium (Senna/Docusate Sodium 1 Tablet) 2 tablet PO BID PRN PRN PRN Reason: Constipation Throat Lozenges (Benzocaine/Menthol 1 Lozenge) 1 lozenge MUCOUS MEM Q2H PRN PRN PRN Reason: SORE THROAT Trazodone HCl (Trazodone 50 Mg Tablet) 50 mg PO QHS PRN PRN Reason: SLEEP Last Admin: 07/11/20 21:56 Dose: 50 mg Documented by: Medical Necessity - Tobacco Use Smoking Status: Former smoker Tobacco Use: Non-smoker Assessment/Plan All Active Problems (Last Reviewed 07/12/20 @ 15:17 by Mary Jo ALFORD, PA-C) Acute exacerbation of CHF (congestive heart failure) (Acute) Acute kidney injury superimposed on CKD (Acute) Elevated d-dimer (Acute) Status post transcatheter aortic valve replacement (Acute) Thrombocytopenia (Acute) Upper GI bleed (Acute) Anemia (Acute) 1. Acute on chronic heart failure with preserved ejection fraction-BNP 482. Increased swelling, dyspnea. Echocardiogram demonstrates an EF of 60%, mild mitral valve insufficiency. Cardiology following. Strict I&O. Daily weight. Can likely discontinue IV Lasix with initiation of dialysis. 2. Recent TAVR secondary to severe aortic stenosis-appears stable per echo. 3. Acute kidney injury on chronic kidney disease stage IV-nephrology following. Renal ultrasound shows renal cysts, no hydronephrosis. Tunneled dialysis catheter placed by Dr. Brooks 07/13/20. Vein mapping ordered. Trend BMP. 4. Chronic normocytic anemia/mild thrombocytopenia-stable, trend CBC. 5. CAD with history of PTCA/CABG-continue medical management. On aspirin, fenofibrate, isosorbide, metoprolol. 6. Type 2 diabetes mellitus-oral regimen on hold. Accu-Cheks with sliding scale insulin. 7. COPD with chronic hypoxic respiratory failure-continue supplement oxygen to maintain O2 at above 90%. As needed albuterol aerosol. 8. History of GI bleed-continue PPI. 9. Hypertension-stable, continue amlodipine, isosorbide, metoprolol. 10. Hyperlipidemia continue fenofibrate. 11. Anxiety/depression-on fluoxetine. DVT prophylaxis- Heparin sc This patient was seen by SIGIFREDO Tong under the supervision of Dr. Saleh. <Liz Saleh - Last Filed: 07/13/20 14:33> Subjective: Agree with the above and the following is a representation my independent history and physical examination. Patient states he is to go for his tunneled dialysis catheter this morning at 10 a.m. he states he is in a better frame of mind and excepting that he may need dialysis but still hopeful that he will be able to get off of dialysis at some point in the future. Shortness of breath remains approximately the same as does his edema. Overall no new complaints. - Physical Exam Vitals/I&O's: Vital Signs Temp Pulse Resp BP Pulse Ox 97.4 F L 63 20 H 159/55 H 95 07/13/20 12:13 07/13/20 12:13 07/13/20 12:13 07/13/20 12:13 07/13/20 12:13 Oxygen Flow Rate (L/min) 3 Oxygen Delivery Method Nasal Cannula Weight: 115.3 kg Body Mass Index (BMI) 37.5 Finger Stick Blood Glucose 269 Intake and Output for Last 24 Hours 07/11/20 07/12/20 07/13/20 23:59 23:59 23:59 Intake Total 1230 / 1230 555 / 555 110 / 110 Output Total 3825 / 3825 2200 / 2200 700 / 700 Balance -2595 / -2595 -1645 / -1645 -590 / -590 General: Alert, Oriented x3, Cooperative, No apparent distress, Well developed, Well nourished, - - Older obese white male sitting up in a chair next to his bed, appears well, is playing on his cell phone HEENT: Atraumatic, PERRLA, EOMI, Normocephalic Oral: Moist Mucosa, No Gingival or Mucosal Lesions/ Ulcerations Neck: Supple, Trachea Midline Lungs: No rhonchi, No wheeze, Diminished, Rales - Few at bilateral bases Cardiovascular: Regular rate, Regular Rhythm, Normal S1, Normal S2, No Ectopic Activity, Murmur, No rub noted, No Gallop Abdomen: Bowel Sounds Present, Soft, Non Tender, Non-Distended, Obese Extremities: No cyanosis, Edema - Bilateral lower extremities-1+ pitting bilateral lower extremities Skin: No rashes, No breakdown Neurological: Cranial nerves II-XII grossly intact, Neuro grossly intact Laboratory Results 07/12/20 15:48: COVID-19 ([facility]) Not Detected 07/12/20 16:28: POC Glucose 185 H 07/12/20 22:21: POC Glucose 170 H 07/13/20 04:56: WBC 9.6, RBC 3.53 L, Hgb 9.1 L, Hct 31.1 L, MCV 88.1, MCH 25.8 L , MCHC 29.3 L, RDW Std Deviation 56.9 H, RDW Coeff of Judi 17.9 H, Plt Count 147 L, MPV 10.0 07/13/20 04:56: Sodium 141, Potassium 4.2, Chloride 108 H, Carbon Dioxide 24.0, Anion Gap 9, BUN 146 H*, Creatinine 4.15 H, Estim Creat Clear Calc 16.80, Est GFR (MDRD) Af Amer 18 L, Est GFR (MDRD) Non-Af 15 L, BUN/Creatinine Ratio 35.2 H , Glucose 119 H, Calcium 8.6 07/13/20 04:56: PT 15.2 H, INR 1.3 07/13/20 04:56: Hemoglobin A1c 6.6 H 07/13/20 06:59: POC Glucose 124 H 07/13/20 12:19: POC Glucose 121 H Current Medications Acetaminophen (Acetaminophen 325 Mg Tablet) 650 mg PO Q6H PRN PRN PRN Reason: Pain Score 1-10/Temp > 100.7 F Al Hydroxide/Mg Hydroxide (Mag Hydrox/Al Hydrox/Simeth 30 Ml Udc) 30 ml PO Q6H PRN PRN PRN Reason: Gastric Burning Last Admin: 07/11/20 18:55 Dose: 30 ml Documented by: Albuterol Sulfate (Albuterol 2.5 Mg/3 Ml Vial.Neb.) 2.5 mg INHALATION Q2H PRN PRN PRN Reason: Dyspnea, wheezing Albuterol/Ipratropium (Ipratropium/Albuterol Sulfate 3 Ml Ampul.Neb) 3 ml INHALATION Q6HWA.RT [facility] Last Admin: 07/13/20 07:45 Dose: 3 ml Documented by: Allopurinol (Allopurinol 100 Mg Tablet) 100 mg PO DAILY [facility] Last Admin: 07/13/20 09:24 Dose: Not Given Documented by: Amlodipine Besylate (Amlodipine 5 Mg Tablet) 5 mg PO BID [facility] Last Admin: 07/13/20 09:24 Dose: Not Given Documented by: Aspirin (Aspirin E.C. 81 Mg Tablet) 81 mg PO DAILY [facility] Last Admin: 07/12/20 08:31 Dose: 81 mg Documented by: Fluoxetine HCl (Fluoxetine 20 Mg Capsule) 40 mg PO DAILY [facility] Last Admin: 07/13/20 09:24 Dose: Not Given Documented by: Furosemide (Furosemide 100 Mg/10 Ml Vial) 60 mg IV Q8 [facility] Last Admin: 07/13/20 06:34 Dose: Not Given Documented by: Guaifenesin (Guaifenesin 10 Ml Udc (200mg/10ml)) 20 ml PO Q4H PRN PRN PRN Reason: COUGH Heparin Sodium (Porcine) (Heparin Injection (Vial) 5,000 Unit/Ml Vial) 5,000 unit SC Q12 [facility] Last Admin: 07/12/20 08:31 Dose: 5,000 unit Documented by: Hydralazine HCl (Hydralazine 20 Mg/Ml Vial) 10 mg IV Q4H PRN PRN PRN Reason: SBP > 160 Insulin Glargine (Insulin Glargine 100 Units/Ml Pen) 50 units SC 0800,2200 [facility] Last Admin: 07/13/20 09:26 Dose: Not Given Documented by: Insulin Human Lispro (Insulin Lispro 100 Unit/Ml Insuln.Pen) 36 unit SC TIDCM [facility] Last Admin: 07/13/20 12:22 Dose: Not Given Documented by: Insulin Human Lispro (Insulin Lispro 100 Unit/Ml Insuln.Pen) 0 unit SC ACHS [facility]; Protocol Last Admin: 07/13/20 12:21 Dose: Not Given Documented by: Isosorbide Mononitrate (Isosorbide Mononitrate 30 Mg Tablet) 30 mg PO DAILY [facility] Last Admin: 07/13/20 09:24 Dose: Not Given Documented by: Melatonin (Melatonin 3 Mg Tablet) 3 mg PO QHS PRN PRN PRN Reason: INSOMNIA Metoprolol Tartrate (Metoprolol Tartrate 50 Mg Tablet) 50 mg PO BID [facility] Last Admin: 07/13/20 09:23 Dose: 50 mg Documented by: Nitroglycerin (Nitroglycerin (Inpatient Use) 0.4 Mg Tab.Subl) 0.4 mg SL Q5M PRN PRN Reason: CARDIAC/CHEST PAIN Ondansetron HCl (Ondansetron 4 Mg/2 Ml Vial) 4 mg IV Q8H PRN PRN PRN Reason: NAUSEA/VOMITING Oxycodone HCl (Oxycodone 5 Mg Tablet) 5 mg PO Q4H PRN PRN PRN Reason: Pain Score 4-5 Pantoprazole Sodium (Pantoprazole Sodium 40 Mg Tablet) 40 mg PO DAILY [facility] Last Admin: 07/13/20 09:24 Dose: Not Given Documented by: Prochlorperazine Edisylate (Prochlorperazine 10 Mg/2 Ml Vial) 5 mg IV Q4H PRN PRN PRN Reason: Breakthrough Nausea/Vomiting Psyllium Hydrophilic Mucilloid (Psyllium 1 Packet) 1 packet PO DAILY PRN PRN PRN Reason: Constipation Senna/Docusate Sodium (Senna/Docusate Sodium 1 Tablet) 2 tablet PO BID PRN PRN PRN Reason: Constipation Throat Lozenges (Benzocaine/Menthol 1 Lozenge) 1 lozenge MUCOUS MEM Q2H PRN PRN PRN Reason: SORE THROAT Trazodone HCl (Trazodone 50 Mg Tablet) 50 mg PO QHS PRN PRN Reason: SLEEP Last Admin: 07/11/20 21:56 Dose: 50 mg Documented by: Assessment/Plan ASSESSMENT Acute on chronic HFpEF Aortic stenosis status post TAVR EDGARDO on CKD stage IIIb Chronic anemia thrombocytopenia CAD status post PCI/CABG DM-two COPD Chronic hypoxic respiratory failure History of GI bleed Hypertension Hyperlipidemia Depression Anxiety OA Obesity-BMI 38.7 PLAN Tunneled hemodialysis catheter to be placed later today -Follow-up as an outpatient with Dr. Benites for creation of an AV fistula -[facility] dialysis will be initiated today -Patient continues to have up and uptrending BUN--> 146 today discussed brains working -Serum creatinine remains about the same and his electrolytes are overall stable -Hemoglobin A1c was 6.6 -Patient has been with [facility] for outpatient dialysis previously and referral was placed today for [facility] -[facility] patient will be ready for discharge in the next 72 to 96 hours Inpatient E&M: 47210 Subs Hosp L2
--- NOTE | 2020-07-13 11:35 | RAD_ITS ---
STUDY: X-RAY CHEST REASON FOR EXAM: Male, 70 years old. Dialysis catheter placement. TECHNIQUE: Single AP portable view of the chest. COMPARISON: Comparison is made with prior study dated 07/09/2020. FINDINGS: A double-lumen dialysis catheter has been placed. The tip is at the junction of superior vena cava and right atrium. The lungs are clear and expanded. There is no demonstrated pleural abnormality. Sternal cerclage wires and vascular clips are present from a prior sternotomy and coronary artery bypass graft procedure (CABG). Borderline cardiomegaly. Normal mediastinum and ursula. Normal visualized pulmonary arteries. Normal visualized aortic arch and descending thoracic aorta. There are degenerative changes of the visualized thoracic spine. Normal visualized ribs, clavicles, and shoulders. There is no demonstrated abnormality of the visualized soft tissue structures of the upper abdomen. RAD/CXR for Line Placement IMPRESSION: Placement of a right-sided double-lumen dialysis catheter with the tip at the junction of the superior vena cava and right atrium. Electronically Signed: Keagan Long MD at 12:08 EDT , Service support ,
--- NOTE | 2020-07-13 12:13 | NURSING ---
Back in room from surgery at this time.
[2020-07-13 12:26] LABS: Bedside Glucose 121 mg/dL (70-110)
--- NOTE | 2020-07-13 13:45 | CASEMGMT ---
Patient has a Healthcare Power of Surgical Coordinator and a Healthcare Living Will on file at [facility]. His Trixie is his Healthcare Power of Surgical Coordinator. Sarita JERNIGAN
--- NOTE | 2020-07-13 15:12 | DIALYSIS ---
First dialysis treatment complete. Net UF 1500ML. See dialysis flow sheet. Pt stable.
[2020-07-13] MEDS: Heparin 10,000 UNITS/10 ML Vial 3200 UNITS IV (15:30)
[2020-07-13 16:50] LABS: Bedside Glucose 99 mg/dL (70-110)
[2020-07-13] MEDS: Furosemide 100 MG/10 ML Vial 60 MG IV ×2 (16:52→22:08)
--- NOTE | 2020-07-13 16:56 | NURSING ---
Pt HOB remains at 30 degrees with bed locked out so pt can not move his HOB past or under 30 degrees.
--- NOTE | 2020-07-13 18:48 | NURSING ---
Dr. Brooks aware that vein mapping was not done today d/t Dialysis being done after surgery today. He is also aware that there is more drainage on patients drsg to Rt chest/Tunneled Dialysis Cath. No new orders.
--- NOTE | 2020-07-13 19:02 | NURSING ---
this nurse had pt order breakfast this evening so it would come around 0715-and 0730. this nurse also called Dietary and left message.
[2020-07-13] MEDS: amLODIPine 5 MG Tablet PO (22:07)
[2020-07-13] MEDS: Insulin Lispro 100 UNIT/ML INSULN.PEN SC (22:10)
[2020-07-13 22:30] LABS: Bedside Glucose 211 mg/dL (70-110)
[2020-07-13] MEDS: MELATONIN 3 MG TABLET PO (23:16)
[2020-07-14] VITALS (16 sets, daily range): BP systolic 112–133; BP diastolic 53–57; PULSE 59–78; RESP 12–20; TEMP 36.7–37.1; O2SAT 94–99
[2020-07-14 06:27] LABS: Hematocrit 28.8 % (40-54); Hemoglobin 8.6 g/dL (13.0-16.5); Mean Corp Hgb Conc 29.9 g/dL (32-36); Mean Corpuscular Hgb 26.1 pg (27.0-32.0); Mean Corpuscular Volume 87.5 fL (80-94); Mean Platelet Vol. 9.7 fl (6.2-12.0); Platelet Count 116 K/mm3 (150-450); RBC Distribution Width CV 17.6 % (11.6-14.6); RBC Distribution Width SD 56.5 fl (35.1-43.9); Red Blood Count 3.29 M/mm3 (4.6-6.2)
[2020-07-14] MEDS: Furosemide 100 MG/10 ML Vial 60 MG IV (06:34)
[2020-07-14 07:00] LABS: Anion Gap 6 (5-15); BUN 118 mg/dL (7-18); BUN/Creat Ratio 30.4 RATIO (10-20); Calcium,Total 8.4 mg/dL (8.5-10.1); Chloride 108 mmol/L (98-107); Creatinine, Serum 3.88 mg/dL (0.70-1.30); EST Glomerular Filtration Rate 17 mL/min (>60); Est Glom Filt Rate - Afr Amer 20 mL/min (>60); Estimated Creatinine Clearance 17.97 ml/min; Glucose 165 mg/dL (74-106); Potassium 4.8 mmol/L (3.5-5.1); Sodium Level 140 mmol/L (136-145)
[2020-07-14] MEDS: Ipratropium/Albuterol Sulfate 3 ML AMPUL.NEB INHALATION ×3 (07:08→19:18)
[2020-07-14 08:56] LABS: Bedside Glucose 168 mg/dL (70-110)
--- NOTE | 2020-07-14 09:37 | PCM.PN.CARD ---
Subjectve: The patient has now started dialysis therapy. He states overall he is feeling better. He believes his lower extremity edema has decreased. Objective: Vital Signs Temp Pulse Resp BP Pulse Ox 98.0 F 61 16 123/57 H 99 07/14/20 06:32 07/14/20 07:05 07/14/20 07:05 07/14/20 06:32 07/14/20 07:05 Oxygen Flow Rate (L/min) 3 Oxygen Delivery Method Nasal Cannula Weight: 255 lb 1.197 oz Body Mass Index (BMI) 37.5 Finger Stick Blood Glucose 269 Intake and Output for Last 24 Hours 07/12/20 07/13/20 07/14/20 23:59 23:59 23:59 Intake Total 555 / 555 650 / 650 50 / 50 Output Total 2200 / 2200 3100 / 3100 Balance -1645 / -1645 -2450 / -2450 50 / 50 General: Awake, Alert, Oriented x 3, Cooperative, No Acute Distress, Obese HEENT: Atraumatic, Normocephalic, PERRL, EOMI, Sclera Non Icteric Neck: Supple, Good ROM Lungs: Clear to auscultation Cardiovascular: Regular Rhythm, Normal S1, Normal S2 Abdomen: Bowel Sounds Present, Soft, Obese Extremities: Moderate RLE Edema, Moderate LLE Edema Neurological: No Focal Motor or Sensory Deficit Psych/Mental Status: Appropriate 07/14/20 05:45: WBC 9.0, RBC 3.29 L, Hgb 8.6 L, Hct 28.8 L, MCV 87.5, MCH 26.1 L, MCHC 29.9 L, Plt Count 116 L, MPV 9.7 07/14/20 05:45: Sodium 140, Potassium 4.8, Chloride 108 H, Carbon Dioxide 26.0, Anion Gap 6, BUN 118 H*, Creatinine 3.88 H, Est GFR (MDRD) Af Amer 20 L, Est GFR (MDRD) Non-Af 17 L, BUN/Creatinine Ratio 30.4 H, Glucose 165 H, Calcium 8.4 L Rhythm: Sinus rhythm Medical Necessity - Tobacco Use Smoking Status: Former smoker Tobacco Use: Non-smoker Assessment/Plan 1. Acute CHF The patient presents with concerns of acute CHF. The patient has recently undergone TAVR procedure at [facility] as noted. Prior to the TAVR procedure he did not require repeat coronary artery/graft revascularization therapy. Prior to the TAVR procedure his overall LV systolic function was considered preserved based upon the [facility] studies. His TAVR was evaluated with a TTE. It appears to be stable at this time. At the present time the patient will continue to be monitored. He has now started hemodialysis therapy. 2. TAVR The patient has undergone recent TAVR procedure at [facility] as noted. As noted above. His TAVR appears stable at this time. 3. CAD status post PCI/CABG The patient was recently reassessed at [facility] with a cardiac catheterization. He did not require revascularization therapy. His troponin I levels have been negative. His ECG demonstrated no acute changes. He will continue medical management. 4. Hyperlipidemia The patient has had a history of being on and off various lipid-lowering agents in the past. He will need to continue lipid management as best as possible. 5. Hypertension The patient will continue antihypertensive therapy with adjustment taking into consideration his renal insufficiency. 6. Diabetes mellitus The patient will continue evaluation care per internal medicine. 7. Acute on chronic renal insufficiency The patient has had an increase in his creatinine levels. At the present time he is continuing medical management. Now status post dialysis catheter placement and has started hemodialysis therapy as of this morning. All, the present time, the patient will continue medical management with adjustment as needed. He will continue hemodialysis therapy. No plans for additional cardiac diagnostic studies/procedures at this time. Comment: The above was discussed with the patient and Dr. Saleh. This note was generated using a voice recognition system and there may be incorrect words, spelling or punctuation that were not noted when reviewing the office note prior to saving.
--- NOTE | 2020-07-14 11:25 | CASEMGMT ---
Addendum entered by Jil Encarnacion 07/14/20 13:12: Hep B resulted and faxed to [facility] admissions/[facility]. Jaylan STRICKLAND CM Addendum entered by Jil Encarnacion 07/14/20 13:04: Call to Cindy at [facility] and pt has tentative chair time of TTS 1100. CM to follow. Jaylan STRICKLAND CM Original Note: Treatment notes/orders faxed to [facility] admission/[facility] and Hep B panel still pending. Jaylan STRICKLAND CM
[2020-07-14 11:40] LABS: Bedside Glucose 151 mg/dL (70-110)
--- NOTE | 2020-07-14 11:48 | PN_ITS ---
<Seymour Birmingham - Last Filed: 07/14/20 11:48> Patient Problems: Active and Suspected Problems (Last Reviewed 07/12/20 @ 15:17 by Mary Jo ALFORD PA-C) Acute exacerbation of CHF (congestive heart failure) (Acute) Acute kidney injury superimposed on CKD (Acute) Elevated d-dimer (Acute) Status post transcatheter aortic valve replacement (Acute) Thrombocytopenia (Acute) Subjective: Patient is a 70-year-old male who is resting in bed while being dialyzed, alert and oriented x3. Patient reports no shortness of breath however does report still feeling like he is overloaded, although he admits this is been improving since admission. Denies chest pain, shortness of breath, palpitations, fever, N/V/D. Objective: Clinical Impression(s) from Imaging Studies Chest X-Ray 07/09/20 17:32 IMPRESSION: Nonacute portable x-ray examination of the chest. Electronically Signed: Duc Gomez MD (Brooks) at 18:27 EDT , Service support , Echocardiogram 07/09/20 19:51 Interpretation Summary The study was technically difficult. Contrast injection was performed. Based upon the 2D echocardiographic and contrast enhanced images obtained there appears to be grossly normal left ventricular size, wall motion, and systolic function. The estimated ejection fraction is 60 %. The left atrium is moderately enlarged. The right atrium is mildly enlarged. There is moderate to severe mitral annular calcification. Extension of the mitral annular calcification onto the base of the posterior mitral valve leaflet. Mild (1+) mitral valve insufficiency. Trivial tricuspid valve insufficiency. Stable appearing bioprosthetic aortic valve apparatus. Trivial pulmonic valve insufficiency. Right ventricular systolic pressure estimated to be 43 mmHg. Transmitral diastolic flow velocities suggest diastolic dysfunction (pseudonormal pattern). Ordering Physician: Virginia Bustamante Referring Physician: Davon Lemus M.D. Performed By: Eric Martinez RCS Venous Doppler Study 07/09/20 19:51 Interpretation Summary Deep veins of the lower extremities are bilaterally patent and compressible segmentally. There is no evidence of deep vein thrombosis on either side. Valvular competence appears intact within the proximal deep venous systems bilaterally. The great saphenous veins are absent bilaterally, having been previously harvested. Ordering Physician: Virginia Bustamante Referring Physician: Davon Lemus M.D. Performed By: Lisha Nova, RAMOSCS, T Renal Ultrasound 07/11/20 13:10 IMPRESSION: Renal cysts are noted of the kidneys. Electronically Signed: Marek Sanchez DO at 16:10 EDT Tel [phone], Service support , Chest X-Ray 07/13/20 11:35 IMPRESSION: Placement of a right-sided double-lumen dialysis catheter with the tip at the junction of the superior vena cava and right atrium. Electronically Signed: Keagan Long MD at 12:08 EDT , Service support , Vitals/I&O's: Vital Signs Temp Pulse Resp BP Pulse Ox 98.0 F 61 16 123/57 H 99 07/14/20 06:32 07/14/20 07:05 07/14/20 07:05 07/14/20 06:32 07/14/20 07:05 Oxygen Flow Rate (L/min) 3 Oxygen Delivery Method Nasal Cannula Weight: 255 lb 1.197 oz Body Mass Index (BMI) 37.5 Finger Stick Blood Glucose 269 Intake and Output for Last 24 Hours 07/12/20 07/13/20 07/14/20 23:59 23:59 23:59 Intake Total 555 / 555 650 / 650 50 / 50 Output Total 2200 / 2200 3100 / 3100 Balance -1645 / -1645 -2450 / -2450 50 / 50 General: Alert, Oriented x3, Cooperative HEENT: Atraumatic, PERRLA, EOMI, Normocephalic Neck: Supple, No JVD, Negative Carotid Bruits Lungs: Clear to auscultation, Normal air movement Cardiovascular: Regular rate, No murmurs Abdomen: Distended, Rigid Extremities: Diminished Peripheral Pulses, Edema - Swelling about the ankles bilaterally Skin: No rashes, No breakdown Musculoskeletal: No Tenderness to Palpation of Joints or Extremities Neurological: Cranial nerves II-XII grossly intact Psych/Mental Status: Normal Affect, Appropriate Laboratory Results 07/13/20 12:19: POC Glucose 121 H 07/13/20 16:41: POC Glucose 99 07/13/20 22:03: POC Glucose 211 H 07/14/20 05:45: WBC 9.0, RBC 3.29 L, Hgb 8.6 L, Hct 28.8 L, MCV 87.5, MCH 26.1 L , MCHC 29.9 L, RDW Std Deviation 56.5 H, RDW Coeff of Judi 17.6 H, Plt Count 116 L, MPV 9.7 07/14/20 05:45: Sodium 140, Potassium 4.8, Chloride 108 H, Carbon Dioxide 26.0, Anion Gap 6, BUN 118 H*, Creatinine 3.88 H, Estim Creat Clear Calc 17.97, Est GFR (MDRD) Af Amer 20 L, Est GFR (MDRD) Non-Af 17 L, BUN/Creatinine Ratio 30.4 H , Glucose 165 H, Calcium 8.4 L 07/14/20 08:52: POC Glucose 168 H 07/14/20 11:20: Hep Bs Antigen Pending 07/14/20 11:36: POC Glucose 151 H Current Medications Acetaminophen (Acetaminophen 325 Mg Tablet) 650 mg PO Q6H PRN PRN PRN Reason: Pain Score 1-10/Temp > 100.7 F Al Hydroxide/Mg Hydroxide (Mag Hydrox/Al Hydrox/Simeth 30 Ml Udc) 30 ml PO Q6H PRN PRN PRN Reason: Gastric Burning Last Admin: 07/11/20 18:55 Dose: 30 ml Documented by: Albuterol Sulfate (Albuterol 2.5 Mg/3 Ml Vial.Neb.) 2.5 mg INHALATION Q2H PRN PRN PRN Reason: Dyspnea, wheezing Albuterol/Ipratropium (Ipratropium/Albuterol Sulfate 3 Ml Ampul.Neb) 3 ml INHALATION Q6HWA.RT ON LICENSE OF [facility] Last Admin: 07/14/20 07:08 Dose: 3 ml Documented by: Allopurinol (Allopurinol 100 Mg Tablet) 100 mg PO DAILY ON LICENSE OF [facility] Last Admin: 07/13/20 09:24 Dose: Not Given Documented by: Amlodipine Besylate (Amlodipine 5 Mg Tablet) 5 mg PO BID ON LICENSE OF [facility] Last Admin: 07/13/20 22:07 Dose: 5 mg Documented by: Aspirin (Aspirin E.C. 81 Mg Tablet) 81 mg PO DAILY ON LICENSE OF [facility] Last Admin: 07/12/20 08:31 Dose: 81 mg Documented by: Fluoxetine HCl (Fluoxetine 20 Mg Capsule) 40 mg PO DAILY ON LICENSE OF [facility] Last Admin: 07/13/20 09:24 Dose: Not Given Documented by: Furosemide (Furosemide 80 Mg Tablet) 80 mg PO BID@1000,1800 ON LICENSE OF [facility] Guaifenesin (Guaifenesin 10 Ml Udc (200mg/10ml)) 20 ml PO Q4H PRN PRN PRN Reason: COUGH Heparin Sodium (Porcine) (Heparin Injection (Vial) 5,000 Unit/Ml Vial) 5,000 unit SC Q12 ON LICENSE OF [facility] Last Admin: 07/12/20 08:31 Dose: 5,000 unit Documented by: Hydralazine HCl (Hydralazine 20 Mg/Ml Vial) 10 mg IV Q4H PRN PRN PRN Reason: SBP > 160 Insulin Glargine (Insulin Glargine 100 Units/Ml Pen) 50 units SC 0800,2200 ON LICENSE OF [facility] Last Admin: 07/14/20 09:33 Dose: Not Given Documented by: Insulin Human Lispro (Insulin Lispro 100 Unit/Ml Insuln.Pen) 36 unit SC TIDCM ON LICENSE OF [facility] Last Admin: 07/14/20 09:33 Dose: Not Given Documented by: Insulin Human Lispro (Insulin Lispro 100 Unit/Ml Insuln.Pen) 0 unit SC ACHS ON LICENSE OF [facility]; Protocol Last Admin: 07/14/20 09:34 Dose: Not Given Documented by: Isosorbide Mononitrate (Isosorbide Mononitrate 30 Mg Tablet) 30 mg PO DAILY ON LICENSE OF [facility] Last Admin: 07/13/20 09:24 Dose: Not Given Documented by: Melatonin (Melatonin 3 Mg Tablet) 3 mg PO QHS PRN PRN PRN Reason: INSOMNIA Last Admin: 07/13/20 23:16 Dose: 3 mg Documented by: Metoprolol Tartrate (Metoprolol Tartrate 50 Mg Tablet) 50 mg PO BID ON LICENSE OF [facility] Last Admin: 07/13/20 22:07 Dose: 50 mg Documented by: Nitroglycerin (Nitroglycerin (Inpatient Use) 0.4 Mg Tab.Subl) 0.4 mg SL Q5M PRN PRN Reason: CARDIAC/CHEST PAIN Ondansetron HCl (Ondansetron 4 Mg/2 Ml Vial) 4 mg IV Q8H PRN PRN PRN Reason: NAUSEA/VOMITING Oxycodone HCl (Oxycodone 5 Mg Tablet) 5 mg PO Q4H PRN PRN PRN Reason: Pain Score 4-5 Pantoprazole Sodium (Pantoprazole Sodium 40 Mg Tablet) 40 mg PO DAILY ON LICENSE OF [facility] Last Admin: 07/13/20 09:24 Dose: Not Given Documented by: Prochlorperazine Edisylate (Prochlorperazine 10 Mg/2 Ml Vial) 5 mg IV Q4H PRN PRN PRN Reason: Breakthrough Nausea/Vomiting Psyllium Hydrophilic Mucilloid (Psyllium 1 Packet) 1 packet PO DAILY PRN PRN PRN Reason: Constipation Senna/Docusate Sodium (Senna/Docusate Sodium 1 Tablet) 2 tablet PO BID PRN PRN PRN Reason: Constipation Throat Lozenges (Benzocaine/Menthol 1 Lozenge) 1 lozenge MUCOUS MEM Q2H PRN PRN PRN Reason: SORE THROAT Trazodone HCl (Trazodone 50 Mg Tablet) 50 mg PO QHS PRN PRN Reason: SLEEP Last Admin: 07/11/20 21:56 Dose: 50 mg Documented by: Medical Necessity - Tobacco Use Smoking Status: Former smoker Tobacco Use: Non-smoker Assessment/Plan All Active Problems (Last Reviewed 07/12/20 @ 15:17 by Mary Jo ALFORD PA-C) Acute exacerbation of CHF (congestive heart failure) (Acute) Acute kidney injury superimposed on CKD (Acute) Elevated d-dimer (Acute) Status post transcatheter aortic valve replacement (Acute) Thrombocytopenia (Acute) Upper GI bleed (Acute) Anemia (Acute) Patient is a 70-year-old male who upon my physical exam was being dialyzed. Patient reports feeling much better from admission, however still feels distended. Dialysis nurse informs this provider that patient will also need to be dialyzed tomorrow. 1) Acute on chronic heart failure with preserved ejection fraction. No management recommendations from cardiology at this time, patient needs to be continued to be monitored. TAVR appears stable at this time per echo. Lasix 80 mg initiated by cardiology. Strict I&O. Daily weights. 2) TAVR history Stable per echocardiogram. 3) EDGARDO on CKD IV Currently being dialyzed, will be dialyzed again tomorrow. Renal ultrasound shows renal cysts, no hydronephrosis. Creatinine 3.88, improving. Nephrology following. 4) chronic normocytic anemia/mild thrombocytopenia Stable, continue to monitor CBC. 5) CAD w/ history of PTCA/CABG Tinea medical management; aspirin, fenofibrate, isosorbide mononitrate and metoprolol 6) DM 2 Oral regimen on hold. Continue Accu-Cheks with sliding scale insulin. 7) Hypertension Stable, continue amlodipine, isosorbide mononitrate and metoprolol 8) COPD with chronic hypoxic respiratory failure Stable, oxygen saturation 99% on 3 L/min via nasal cannula. Continue with oxygen supplementation and albuterol aerosols as needed. 9) Hyperlipidemia Continue fenofibrate. 10) History of GI bleed Stable, continue PPI. 11) Anxiety/depression Stable, continue on fluoxetine. DVT prophylaxis - SC heparin Patient seen by Seymour Birmingham PA-C, under the supervision of Dr. Saleh. <Liz Saleh - Last Filed: 07/14/20 16:57> Subjective: I agree with the above and the following representation my independent history and physical examination. Patient states he is feeling pretty well. Was dialyzed yesterday without any issue. 1500 cc was removed. Currently on dialysis with a goal of 3000 cc removal today. Vitals/I&O's: Vital Signs Temp Pulse Resp BP Pulse Ox 98.2 F 71 16 112/54 L 94 07/14/20 13:01 07/14/20 14:51 07/14/20 13:24 07/14/20 13:01 07/14/20 13:01 Oxygen Flow Rate (L/min) 2.5 Oxygen Delivery Method Nasal Cannula Weight: 115.7 kg Body Mass Index (BMI) 37.5 Finger Stick Blood Glucose 269 Intake and Output for Last 24 Hours 07/12/20 07/13/20 07/14/20 23:59 23:59 23:59 Intake Total 555 / 555 650 / 650 530 / 530 Output Total 2200 / 2200 3100 / 3100 3400 / 3400 Balance -1645 / -1645 -2450 / -2450 -2870 / -2870 General: Alert, Oriented x3, Cooperative, No apparent distress, Well developed, Well nourished, - - Older white male who appears older than stated age, sitting up in bed currently on hemodialysis, at bedside HEENT: Atraumatic, Normocephalic Oral: Moist Mucosa Neck: Supple, Trachea Midline Lungs: No rhonchi, No wheeze, No rales, Diminished Cardiovascular: Regular rate, Regular Rhythm, Normal S1, Normal S2, Murmur, No rub noted, No Gallop Abdomen: Bowel Sounds Present, Soft, Non Tender, Non-Distended, Obese Extremities: No clubbing, No cyanosis, Capillary Refill Less than 3 Seconds, Edema - Swelling about the ankles bilaterally, edema improved trace bilateral lower extremity pitting, Peripheral Pulses Normal Neurological: Cranial nerves II-XII grossly intact, Neuro grossly intact Psych/Mental Status: Normal Affect, Appropriate Laboratory Results 07/13/20 22:03: POC Glucose 211 H 07/14/20 05:45: WBC 9.0, RBC 3.29 L, Hgb 8.6 L, Hct 28.8 L, MCV 87.5, MCH 26.1 L , MCHC 29.9 L, RDW Std Deviation 56.5 H, RDW Coeff of Judi 17.6 H, Plt Count 116 L, MPV 9.7 07/14/20 05:45: Sodium 140, Potassium 4.8, Chloride 108 H, Carbon Dioxide 26.0, Anion Gap 6, BUN 118 H*, Creatinine 3.88 H, Estim Creat Clear Calc 17.97, Est GFR (MDRD) Af Amer 20 L, Est GFR (MDRD) Non-Af 17 L, BUN/Creatinine Ratio 30.4 H , Glucose 165 H, Calcium 8.4 L 07/14/20 08:52: POC Glucose 168 H 07/14/20 11:20: Hep Bs Antigen Non-Reactive 07/14/20 11:36: POC Glucose 151 H Current Medications Acetaminophen (Acetaminophen 325 Mg Tablet) 650 mg PO Q6H PRN PRN PRN Reason: Pain Score 1-10/Temp > 100.7 F Al Hydroxide/Mg Hydroxide (Mag Hydrox/Al Hydrox/Simeth 30 Ml Udc) 30 ml PO Q6H PRN PRN PRN Reason: Gastric Burning Last Admin: 07/11/20 18:55 Dose: 30 ml Documented by: Albuterol Sulfate (Albuterol 2.5 Mg/3 Ml Vial.Neb.) 2.5 mg INHALATION Q2H PRN PRN PRN Reason: Dyspnea, wheezing Albuterol/Ipratropium (Ipratropium/Albuterol Sulfate 3 Ml Ampul.Neb) 3 ml INHALATION Q6HWA.RT ON LICENSE OF [facility] Last Admin: 07/14/20 13:14 Dose: 3 ml Documented by: Allopurinol (Allopurinol 100 Mg Tablet) 100 mg PO DAILY ON LICENSE OF [facility] Last Admin: 07/14/20 13:04 Dose: 100 mg Documented by: Amlodipine Besylate (Amlodipine 5 Mg Tablet) 5 mg PO BID ON LICENSE OF [facility] Last Admin: 07/14/20 13:04 Dose: 5 mg Documented by: Aspirin (Aspirin E.C. 81 Mg Tablet) 81 mg PO DAILY ON LICENSE OF [facility] Last Admin: 07/12/20 08:31 Dose: 81 mg Documented by: Fluoxetine HCl (Fluoxetine 20 Mg Capsule) 40 mg PO DAILY ON LICENSE OF [facility] Last Admin: 07/14/20 13:04 Dose: 40 mg Documented by: Furosemide (Furosemide 80 Mg Tablet) 80 mg PO BID@1000,1800 ON LICENSE OF [facility] Last Admin: 07/14/20 13:03 Dose: 80 mg Documented by: Guaifenesin (Guaifenesin 10 Ml Udc (200mg/10ml)) 20 ml PO Q4H PRN PRN PRN Reason: COUGH Heparin Sodium (Porcine) (Heparin Injection (Vial) 5,000 Unit/Ml Vial) 5,000 unit SC Q12 ON LICENSE OF [facility] Last Admin: 07/12/20 08:31 Dose: 5,000 unit Documented by: Hydralazine HCl (Hydralazine 20 Mg/Ml Vial) 10 mg IV Q4H PRN PRN PRN Reason: SBP > 160 Insulin Glargine (Insulin Glargine 100 Units/Ml Pen) 50 units SC 0800,2200 ON LICENSE OF [facility] Last Admin: 07/14/20 09:33 Dose: Not Given Documented by: Insulin Human Lispro (Insulin Lispro 100 Unit/Ml Insuln.Pen) 36 unit SC TIDCM ON LICENSE OF [facility] Last Admin: 07/14/20 13:06 Dose: 36 u Documented by: Insulin Human Lispro (Insulin Lispro 100 Unit/Ml Insuln.Pen) 0 unit SC ACHS ON LICENSE OF [facility]; Protocol Last Admin: 07/14/20 13:06 Dose: 1 units Documented by: Isosorbide Mononitrate (Isosorbide Mononitrate 30 Mg Tablet) 30 mg PO DAILY ON LICENSE OF [facility] Last Admin: 07/14/20 13:03 Dose: 30 mg Documented by: Melatonin (Melatonin 3 Mg Tablet) 3 mg PO QHS PRN PRN PRN Reason: INSOMNIA Last Admin: 07/13/20 23:16 Dose: 3 mg Documented by: Metoprolol Tartrate (Metoprolol Tartrate 50 Mg Tablet) 50 mg PO BID ON LICENSE OF [facility] Last Admin: 07/14/20 13:03 Dose: 50 mg Documented by: Nitroglycerin (Nitroglycerin (Inpatient Use) 0.4 Mg Tab.Subl) 0.4 mg SL Q5M PRN PRN Reason: CARDIAC/CHEST PAIN Ondansetron HCl (Ondansetron 4 Mg/2 Ml Vial) 4 mg IV Q8H PRN PRN PRN Reason: NAUSEA/VOMITING Oxycodone HCl (Oxycodone 5 Mg Tablet) 5 mg PO Q4H PRN PRN PRN Reason: Pain Score 4-5 Pantoprazole Sodium (Pantoprazole Sodium 40 Mg Tablet) 40 mg PO DAILY ON LICENSE OF [facility] Last Admin: 07/14/20 13:04 Dose: 40 mg Documented by: Prochlorperazine Edisylate (Prochlorperazine 10 Mg/2 Ml Vial) 5 mg IV Q4H PRN PRN PRN Reason: Breakthrough Nausea/Vomiting Psyllium Hydrophilic Mucilloid (Psyllium 1 Packet) 1 packet PO DAILY PRN PRN PRN Reason: Constipation Senna/Docusate Sodium (Senna/Docusate Sodium 1 Tablet) 2 tablet PO BID PRN PRN PRN Reason: Constipation Throat Lozenges (Benzocaine/Menthol 1 Lozenge) 1 lozenge MUCOUS MEM Q2H PRN PRN PRN Reason: SORE THROAT Trazodone HCl (Trazodone 50 Mg Tablet) 50 mg PO QHS PRN PRN Reason: SLEEP Last Admin: 07/11/20 21:56 Dose: 50 mg Documented by: STROKE Vital Signs/Narrative: Vital Signs Temp Pulse Resp BP Pulse Ox 07/14/20 14:51 71 07/14/20 13:24 68 16 07/14/20 13:03 68 07/14/20 13:01 98.2 F 74 18 112/54 L 94 Assessment/Plan ASSESSMENT Acute on chronic HFpEF Aortic stenosis status post TAVR EDGARDO on CKD stage IIIb Chronic anemia thrombocytopenia CAD status post PCI/CABG DM-two COPD Chronic hypoxic respiratory failure History of GI bleed Hypertension Hyperlipidemia Depression Anxiety OA Obesity-BMI 38.7 PLAN -Discussed case with Dr. Green -Follow-up as an outpatient with Dr. Brooks for creation of AV fistula after discharge -We will undergo HD tomorrow -Suspect discharge in the next 24 to 48 hours -Hep B panel pending for outpatient dialysis -Planning dialysis on Saturday at [address] [facility] Inpatient E&M: [id number] Subs Hosp L2
--- NOTE | 2020-07-14 11:54 | DIALYSIS ---
3HOUR HD treatment complete.Tolerated well. Net UF 2800ML. See dialysis flow sheet.
[2020-07-14 12:36] LABS: Hepatitis B Surface Antigen Non-Reactive (Nonreactive)
[2020-07-14] MEDS: Furosemide 80 MG Tablet PO ×2 (13:03→17:28)
[2020-07-14] MEDS: Heparin 10,000 UNITS/10 ML Vial 1600 UNITS IV (13:03)
[2020-07-14] MEDS: Metoprolol Tartrate 50 MG Tablet PO ×2 (13:03→21:02)
[2020-07-14] MEDS: Isosorbide Mononitrate 30 MG Tablet PO (13:03)
[2020-07-14] MEDS: Pantoprazole Sodium 40 MG Tablet PO (13:04)
[2020-07-14] MEDS: amLODIPine 5 MG Tablet PO ×2 (13:04→21:01)
[2020-07-14] MEDS: FLUoxetine 20 MG Capsule 40 MG PO (13:04)
[2020-07-14] MEDS: Allopurinol 100 MG Tablet PO (13:04)
[2020-07-14] MEDS: Insulin Lispro 100 UNIT/ML INSULN.PEN 36 UNIT SC ×2 (13:06→17:26)
[2020-07-14] MEDS: Insulin Lispro 100 UNIT/ML INSULN.PEN SC ×3 (13:06→21:01)
--- NOTE | 2020-07-14 13:50 | PCM.PN.REN ---
Patient Problems: Active and Suspected Problems (Last Reviewed 07/12/20 @ 15:17 by Mary Jo ALFORD, PADerickC) Acute exacerbation of CHF (congestive heart failure) (Acute) Acute kidney injury superimposed on CKD (Acute) Elevated d-dimer (Acute) Status post transcatheter aortic valve replacement (Acute) Thrombocytopenia (Acute) Subjective: Patient states his shortness of breath is much better lower extremity edema is also improved tolerated well dialysis yesterday and today - Physical Exam Vitals/I&O's: Vital Signs Temp Pulse Resp BP Pulse Ox 98.2 F 68 16 112/54 L 94 07/14/20 13:01 07/14/20 13:24 07/14/20 13:24 07/14/20 13:01 07/14/20 13:01 Oxygen Flow Rate (L/min) 2 Oxygen Delivery Method Nasal Cannula Weight: 115.7 kg Body Mass Index (BMI) 37.5 Finger Stick Blood Glucose 269 Intake and Output for Last 24 Hours 07/12/20 07/13/20 07/14/20 23:59 23:59 23:59 Intake Total 555 / 555 650 / 650 530 / 530 Output Total 2200 / 2200 3100 / 3100 3400 / 3400 Balance -1645 / -1645 -2450 / -2450 -2870 / -2870 General: Alert, Cooperative HEENT: Atraumatic, Normocephalic Neck: Trachea Midline Lungs: Clear to auscultation, Normal air movement Cardiovascular: Regular rate, Regular Rhythm, Normal S1, Normal S2 Abdomen: Bowel Sounds Present, Soft, Obese Extremities: Edema Laboratory Results 07/13/20 16:41: POC Glucose 99 07/13/20 22:03: POC Glucose 211 H 07/14/20 05:45: WBC 9.0, RBC 3.29 L, Hgb 8.6 L, Hct 28.8 L, MCV 87.5, MCH 26.1 L, MCHC 29.9 L, RDW Std Deviation 56.5 H, RDW Coeff of Judi 17.6 H, Plt Count 116 L, MPV 9.7 07/14/20 05:45: Sodium 140, Potassium 4.8, Chloride 108 H, Carbon Dioxide 26.0, Anion Gap 6, BUN 118 H*, Creatinine 3.88 H, Estim Creat Clear Calc 17.97, Est GFR (MDRD) Af Amer 20 L, Est GFR (MDRD) Non-Af 17 L, BUN/Creatinine Ratio 30.4 H, Glucose 165 H, Calcium 8.4 L 07/14/20 08:52: POC Glucose 168 H 07/14/20 11:20: Hep Bs Antigen Non-Reactive 07/14/20 11:36: POC Glucose 151 H Current Medications Acetaminophen (Acetaminophen 325 Mg Tablet) 650 mg PO Q6H PRN PRN PRN Reason: Pain Score 1-10/Temp > 100.7 F Al Hydroxide/Mg Hydroxide (Mag Hydrox/Al Hydrox/Simeth 30 Ml Udc) 30 ml PO Q6H PRN PRN PRN Reason: Gastric Burning Last Admin: 07/11/20 18:55 Dose: 30 ml Documented by: Albuterol Sulfate (Albuterol 2.5 Mg/3 Ml Vial.Neb.) 2.5 mg INHALATION Q2H PRN PRN PRN Reason: Dyspnea, wheezing Albuterol/Ipratropium (Ipratropium/Albuterol Sulfate 3 Ml Ampul.Neb) 3 ml INHALATION Q6HWA.RT [facility] Last Admin: 07/14/20 13:14 Dose: 3 ml Documented by: Allopurinol (Allopurinol 100 Mg Tablet) 100 mg PO DAILY [facility] Last Admin: 07/14/20 13:04 Dose: 100 mg Documented by: Amlodipine Besylate (Amlodipine 5 Mg Tablet) 5 mg PO BID [facility] Last Admin: 07/14/20 13:04 Dose: 5 mg Documented by: Aspirin (Aspirin E.C. 81 Mg Tablet) 81 mg PO DAILY [facility] Last Admin: 07/12/20 08:31 Dose: 81 mg Documented by: Fluoxetine HCl (Fluoxetine 20 Mg Capsule) 40 mg PO DAILY [facility] Last Admin: 07/14/20 13:04 Dose: 40 mg Documented by: Furosemide (Furosemide 80 Mg Tablet) 80 mg PO BID@1000,1800 [facility] Last Admin: 07/14/20 13:03 Dose: 80 mg Documented by: Guaifenesin (Guaifenesin 10 Ml Udc (200mg/10ml)) 20 ml PO Q4H PRN PRN PRN Reason: COUGH Heparin Sodium (Porcine) (Heparin Injection (Vial) 5,000 Unit/Ml Vial) 5,000 unit SC Q12 [facility] Last Admin: 07/12/20 08:31 Dose: 5,000 unit Documented by: Hydralazine HCl (Hydralazine 20 Mg/Ml Vial) 10 mg IV Q4H PRN PRN PRN Reason: SBP > 160 Insulin Glargine (Insulin Glargine 100 Units/Ml Pen) 50 units SC 0800,2200 [facility] Last Admin: 07/14/20 09:33 Dose: Not Given Documented by: Insulin Human Lispro (Insulin Lispro 100 Unit/Ml Insuln.Pen) 36 unit SC TIDCM [facility] Last Admin: 07/14/20 13:06 Dose: 36 u Documented by: Insulin Human Lispro (Insulin Lispro 100 Unit/Ml Insuln.Pen) 0 unit SC ACHS [facility]; Protocol Last Admin: 07/14/20 13:06 Dose: 1 units Documented by: Isosorbide Mononitrate (Isosorbide Mononitrate 30 Mg Tablet) 30 mg PO DAILY [facility] Last Admin: 07/14/20 13:03 Dose: 30 mg Documented by: Melatonin (Melatonin 3 Mg Tablet) 3 mg PO QHS PRN PRN PRN Reason: INSOMNIA Last Admin: 07/13/20 23:16 Dose: 3 mg Documented by: Metoprolol Tartrate (Metoprolol Tartrate 50 Mg Tablet) 50 mg PO BID [facility] Last Admin: 07/14/20 13:03 Dose: 50 mg Documented by: Nitroglycerin (Nitroglycerin (Inpatient Use) 0.4 Mg Tab.Subl) 0.4 mg SL Q5M PRN PRN Reason: CARDIAC/CHEST PAIN Ondansetron HCl (Ondansetron 4 Mg/2 Ml Vial) 4 mg IV Q8H PRN PRN PRN Reason: NAUSEA/VOMITING Oxycodone HCl (Oxycodone 5 Mg Tablet) 5 mg PO Q4H PRN PRN PRN Reason: Pain Score 4-5 Pantoprazole Sodium (Pantoprazole Sodium 40 Mg Tablet) 40 mg PO DAILY [facility] Last Admin: 07/14/20 13:04 Dose: 40 mg Documented by: Prochlorperazine Edisylate (Prochlorperazine 10 Mg/2 Ml Vial) 5 mg IV Q4H PRN PRN PRN Reason: Breakthrough Nausea/Vomiting Psyllium Hydrophilic Mucilloid (Psyllium 1 Packet) 1 packet PO DAILY PRN PRN PRN Reason: Constipation Senna/Docusate Sodium (Senna/Docusate Sodium 1 Tablet) 2 tablet PO BID PRN PRN PRN Reason: Constipation Throat Lozenges (Benzocaine/Menthol 1 Lozenge) 1 lozenge MUCOUS MEM Q2H PRN PRN PRN Reason: SORE THROAT Trazodone HCl (Trazodone 50 Mg Tablet) 50 mg PO QHS PRN PRN Reason: SLEEP Last Admin: 07/11/20 21:56 Dose: 50 mg Documented by: Medical Necessity - Tobacco Use Smoking Status: Former smoker Tobacco Use: Non-smoker Assessment/Plan All Active Problems (Last Reviewed 07/12/20 @ 15:17 by Mary Jo ALFORD, PA-C) Acute exacerbation of CHF (congestive heart failure) (Acute) Acute kidney injury superimposed on CKD (Acute) Elevated d-dimer (Acute) Status post transcatheter aortic valve replacement (Acute) Thrombocytopenia (Acute) Upper GI bleed (Acute) Anemia (Acute) EDGARDO likely CRS vs progression of advanced kidney disease with now esrd CKD 4 baseline in the 3 range LE edema CHF The patient tolerated well dialysis yesterday and today. For dialysis tomorrow 4 hours. If the patient has a chair in the dialysis unit tomorrow he can go after dialysis renal standpoint. d/w patient/hospitalist/MEDICAL ORDERLY/CM/
[2020-07-14 17:36] LABS: Bedside Glucose 193 mg/dL (70-110)
[2020-07-14] MEDS: Mag Hydrox/Al Hydrox/Simeth 30 ML UDC PO (19:49)
[2020-07-14] MEDS: Heparin Injection (Vial) 5,000 UNIT/ML VIAL 5000 UNIT SC (21:01)
[2020-07-14 21:25] LABS: Bedside Glucose 215 mg/dL (70-110)
[2020-07-15] VITALS (10 sets, daily range): BP systolic 129–142; BP diastolic 59–88; PULSE 63–75; RESP 12–18; TEMP 36.4–36.8; O2SAT 95–98
[2020-07-15 06:34] LABS: Absolute Lymphocyte Count 0.87 X10^3/uL (0.83-4.51); Absolute Neutrophil Count 6.9 X10^3/uL (2.0-7.7); Basophil# 0.03 X10^3/uL; Basophil% 0.3 % (0-1); Eosinophils% 3.3 % (0-5); Hematocrit 30.8 % (40-54); Hemoglobin 9.2 g/dL (13.0-16.5); Lymphocyte # 0.87 X10^3/ul (0.83-4.51); Lymphocyte % 9.7 % (19-41); Mean Corp Hgb Conc 29.9 g/dL (32-36); Mean Corpuscular Hgb 26.2 pg (27.0-32.0); Mean Corpuscular Volume 87.7 fL (80-94); Mean Platelet Vol. 9.5 fl (6.2-12.0); Monocyte# 0.81 X10^3/uL; NRBC Flagged by Analyzer 0 % (0-5); Neutrophil # 6.85 X10^3/uL (2.7-7.7); Neutrophil % 76.4 % (47-70); Platelet Count 125 K/mm3 (150-450); RBC Distribution Width CV 17.2 % (11.6-14.6); Red Blood Count 3.51 M/mm3 (4.6-6.2)
[2020-07-15] MEDS: Ipratropium/Albuterol Sulfate 3 ML AMPUL.NEB INHALATION ×2 (06:49→13:31)
[2020-07-15 07:06] LABS: Anion Gap 8 (5-15); BUN 103 mg/dL (7-18); BUN/Creat Ratio 23.3 RATIO (10-20); Calcium,Total 8.6 mg/dL (8.5-10.1); Chloride 104 mmol/L (98-107); Creatinine, Serum 4.43 mg/dL (0.70-1.30); EST Glomerular Filtration Rate 14 mL/min (>60); Est Glom Filt Rate - Afr Amer 17 mL/min (>60); Estimated Creatinine Clearance 15.74 ml/min; Glucose 258 mg/dL (74-106); Potassium 4.7 mmol/L (3.5-5.1); Sodium Level 138 mmol/L (136-145)
[2020-07-15] MEDS: Insulin Lispro 100 UNIT/ML INSULN.PEN 36 UNIT SC ×2 (08:51→13:14)
[2020-07-15] MEDS: Insulin Lispro 100 UNIT/ML INSULN.PEN SC (08:52)
[2020-07-15 09:10] LABS: Bedside Glucose 286 mg/dL (70-110)
--- NOTE | 2020-07-15 09:14 | CASEMGMT ---
Addendum entered by Jil Encarnacion 07/15/20 13:39: Call back from Anabell at [facility] and she states pt is financially clear at this time. Call to Angelo to update and he states that pt's chair time is actually TTS 1120. This is placed in pt d/c appts as schedule letter not received yet and they would like pt to have 1st OP tomorrow 07/16. Pt/ updated on all, voice understanding. Pt/ voice no further questions/concerns/needs. Jaylan RN CM Addendum entered by Jil Encarnacion 07/15/20 13:20: Call back from Anabell at [facility] and she states that they are trying to run the financials thru the [facility] and trying to figure out whether pt has seen nephro at [facility]. This RN CM to room and per pt/, pt has only ever seen glen Vargas, and pt/ state adamantly that they do not want the OP dialysis set up thru the [facility]. Call back to Anabell and notified her of same. CM to follow. Jaylan RN CM Addendum entered by Jil Encarnacion 07/15/20 12:59: Per Angelo, pt was given a chair time of TTS 1100. This RN CM has not received schedule letter for pt yet and it's not available in the [facility] portal. Call back to [facility] admissions as Olinda has still not called this RN CM back. Per rep, pt is still not financially cleared. Call to Anabell velasquez, and she states she is escalating this at this time. CM to follow. Jaylan RN CM Addendum entered by Jil Encarnacion 07/15/20 10:59: This RN CM has not heard back from [facility] admissions so call to Angelo at [facility] to check on financial approval. Per Angelo, it has not gone through yet but he will reach out to ron Hung, to facilitate process. Angelo is aware that they plan to discharge pt today and this RN CM will notify if nephro wants him to come tomorrow. CM to follow. Jaylan RN CM Original Note: Message left with Sulma at [facility] in regards to financial approval. CM to follow. Jaylan RN CM
--- NOTE | 2020-07-15 10:40 | PCM.DC ---
- Discharge Diagnoses Current Active Problems: Current Active and Chronic Problems (Last Reviewed 07/12/20 @ 15:17 by Mary Jo ALFORD, PADerickC) Acute exacerbation of CHF (congestive heart failure) (Acute) Acute kidney injury superimposed on CKD (Acute) Elevated d-dimer (Acute) Status post transcatheter aortic valve replacement (Acute) Thrombocytopenia (Acute) Chronic anemia (Chronic) Anxiety and depression (Chronic) Chronic obstructive pulmonary disease (COPD) (Chronic) Chronic respiratory failure with hypoxia (Chronic) Diabetes mellitus, type II (Chronic) History of GI bleed (Chronic) Dyspnea on exertion (Chronic) Kidney disease, chronic, stage IV (GFR 15-29 ml/min) (Chronic) COPD (chronic obstructive pulmonary disease) (Chronic) Sleep apnea (Chronic) Pure hypercholesterolemia (Chronic) Type 2 diabetes mellitus (Chronic) Presence of stent in coronary artery (Chronic ~08/25/14) 07/18/10, PTCA/stent to mid to distal LCx artery; 08/17/10 PTCA/stent to proximal to mid RCA; PTCA of distal RCA with DEX September 2010; PTCA with EULALIO to mid distal AV groove left CFX 08/13 Essential hypertension (Chronic) Nonrheumatic aortic (valve) stenosis (Chronic) Diastolic dysfunction (Chronic) Other [facility] (current) drug therapy (Chronic) Atherosclerotic heart disease of [place] coronary artery without angina pectoris (Chronic) S/P multivessel PTCA/stent and subsequent CABG with SVG to LCx, RCA and diagonal branch with subsequent SVG graft closure to the LCx and diagonal branch; S/P CABG x 3 (Chronic ~07/21/12) CABG-SVG to diagonal, SVG to obtuse marginal & SVG to PDA 07/12; GERD (gastroesophageal reflux disease) (Chronic) You will use the following diet at home:: No restrictions Your food should be the consistency of: Regular Your liquids should be the consistency of: Regular/Thin Discharge Activity: Return to Normal Activity Allergies/Adverse Reactions: Allergies carvedilol [From Coreg] Allergy (Severe, Verified 07/09/20 20:09) vomiting valsartan [From Diovan] Allergy (Severe, Verified 07/09/20 20:09) Possible angioedema, throat swelling sertraline HCl [From Zoloft] Allergy (Verified 07/09/20 20:09) Unknown makes me mean bupropion HCl [From Wellbutrin] Adverse Reaction (Verified 07/09/20 20:09) gets mean citalopram Adverse Reaction (Verified 07/09/20 20:09) Other gabapentin Adverse Reaction (Verified 07/09/20 20:09) Other Medications to take at Discharge Nitroglycerin (INPATIENT USE) [Nitrostat] 0.4 mg SUBLINGUAL Q5M PRN 10/27/13 berberine-herbal comb no.18 capsule 2 cap PO BID cap 02/24/18 Allopurinol 100 mg PO DAILY 02/25/19 Astaxanthin 4 mg PO DAILY 02/25/19 Fluoxetine HCl 40 mg PO DAILY 02/25/19 Insulin Aspart [Novolog Flexpen] 36 units SUBCUT TIDCM 02/25/19 Ubidecarenone [Co Q-10] 400 mg PO BID 11/10/19 fenofibrate 160 mg tablet 160 mg PO DAILY 02/04/20 insulin glargine 100 unit/mL (3 mL) subcutaneous pen 50 unit SUBCUT BID ml 02/04/20 furosemide 80 mg tablet 80 mg PO BID #180 tab 05/16/20 isosorbide mononitrate 30 mg tablet,extended release 24 hr 30 mg PO DAILY #90 tab 05/16/20 metoprolol tartrate 50 mg tablet 50 mg PO BID #180 tab 05/20/20 amlodipine 5 mg tablet 5 mg PO BID #180 tab 06/03/20 Aspirin E.C. [Ecotrin] 81 mg PO DAILY@0800 06/30/20 Pantoprazole Sodium [Protonix] 40 mg PO DAILY 06/30/20 Metolazone [Zaroxolyn] 5 mg PO DAILY 07/09/20 traZODone [Desyrel] 50 mg PO QHS PRN PRN 07/10/20 Primary Care Physician: Davon Lemus MD [Primary Care Provider] - Please follow up with your Primary Care Physician in: Within the next 2 weeks Test Results: Test results from this visit will be discussed in further detail at your follow-up appointment, if applicable. Please Follow Up With: Isi Ball - Scheduled dialysis on Saturday, and Saturday at 11 AM Proposed Discharge Date: 07/15/20
--- NOTE | 2020-07-15 12:01 | PCM.DC.SUM ---
<Seymour Birmingham - Last Filed: 07/15/20 12:01> Discharge Date and Diagnosis - Problem List Patient Problems: Active and Suspected Problems (Last Reviewed 07/12/20 @ 15:17 by Mary Jo ALFORD, KARTHIK) Acute exacerbation of CHF (congestive heart failure) (Acute) Acute kidney injury superimposed on CKD (Acute) Elevated d-dimer (Acute) Status post transcatheter aortic valve replacement (Acute) Thrombocytopenia (Acute) Date of Admission: 07/12/20 Date of Discharge: 07/15/20 - Primary Discharge Diagnosis Acute Problems: Active Problems (Last Reviewed 07/12/20 @ 15:17 by LOLLY VelezC) Acute exacerbation of CHF (congestive heart failure) (Acute) Acute kidney injury superimposed on CKD (Acute) Elevated d-dimer (Acute) Status post transcatheter aortic valve replacement (Acute) Thrombocytopenia (Acute) - Secondary Discharge Diagnosis Chronic Problems: Chronic Problems (Last Reviewed 07/12/20 @ 15:17 by Mary Jo ALFORD PA-C) Chronic anemia (Chronic) Anxiety and depression (Chronic) Chronic obstructive pulmonary disease (COPD) (Chronic) Chronic respiratory failure with hypoxia (Chronic) Diabetes mellitus, type II (Chronic) History of GI bleed (Chronic) Chronic kidney disease (Chronic) Dyspnea on exertion (Chronic) Kidney disease, chronic, stage IV (GFR 15-29 ml/min) (Chronic) COPD (chronic obstructive pulmonary disease) (Chronic) Sleep apnea (Chronic) Nephrotic range proteinuria (Chronic) Pure hypercholesterolemia (Chronic) Type 2 diabetes mellitus (Chronic) Presence of stent in coronary artery (Chronic ~08/25/14) 07/18/10, PTCA/stent to mid to distal LCx artery; 08/17/10 PTCA/stent to proximal to mid RCA; PTCA of distal RCA with DEX September 2010; PTCA with EULALIO to mid distal AV groove left CFX 08/13 Essential hypertension (Chronic) Nonrheumatic aortic (valve) stenosis (Chronic) Nonspecific abnormal unspecified cardiovascular function study (Chronic) Diastolic dysfunction (Chronic) 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 Arnol Brooks, ERCP - Dr. Solis on 10/27/13 and 10/30/13 Procedures: Dialysis Summary of Care Provided: Patient is a 70-year-old male who presented to the ED at [facility] on 07/09/2020 with a chief complaint of ongoing SOB, weight gain, orthopnea and bilateral LE edema. Patient was admitted for management of Acute CHF exacerbation, EDGARDO on CKD IV, Thrombocytopenia, Anemia and Elevated D-Dimer. A bilateral LE showed no evidence of DVT bilaterally. Echocardiogram on 07/09/2020 demonstrated an EF of 60%, Normal LV size/function, RVSP of 43mmHg, Stable aortic valve replacement. Cardiology recommends no medication changes at this time and to follow up as an outpatient. Patient was dialyzed while in the hospital and will continue to be dialyzed as an outpatient on a Saturday, , Saturday schedule at [facility]. Patient reports feeling much better from admission and reports resolution of SOB and congestion since being on dialysis. 1) Acute on chronic heart failure with preserved ejection fraction. No management recommendations from cardiology at this time, patient needs to be continued to be monitored. TAVR appears stable at this time per echo. Cardiology following, no medication changes recommended at this time. Patient not a candidate for WILMER-I given worsening renal disease. Lasix and metoprolol continued on discharge. 2) TAVR history Stable per echocardiogram. 3) EDGARDO on CKD IV Will follow up with Dr. Benites for creation of AV fistula after discharge. Patient to be dialyzed at [facility] on a Saturday, , Saturday schedule. 4) chronic normocytic anemia/mild thrombocytopenia Stable. 5) CAD w/ history of PTCA/CABG Continue medical management; aspirin, fenofibrate, isosorbide mononitrate and metoprolol 6) DM 2 Admit continued on discharge. POC glucose 286. Hemoglobin A1c was 6.6. 7) Hypertension Stable, continue amlodipine, isosorbide mononitrate and metoprolol on discharge. 8) COPD with chronic hypoxic respiratory failure Stable. 9) Hyperlipidemia Continue fenofibrate. 10) History of GI bleed Stable, continue PPI. 11) Anxiety/depression Stable, continue on fluoxetine. Patient seen by Seymour Birmingham PA-C, under the supervision of Dr. Saleh. Patient Problems: Active and Suspected Problems (Last Reviewed 07/12/20 @ 15:17 by Mary Jo ALFORD PA-C) Acute exacerbation of CHF (congestive heart failure) (Acute) Acute kidney injury superimposed on CKD (Acute) Elevated d-dimer (Acute) Status post transcatheter aortic valve replacement (Acute) Thrombocytopenia (Acute) Subjective: Patient is a 70-year-old male who is resting in bed while being dialyzed, alert and oriented x3. Patient reports no shortness of breath and reports continued improvement of feeling fluid overloaded from admission. Denies chest pain, shortness of breath, palpitations, fever, N/V/D. Objective: Clinical Impression(s) from Imaging Studies Chest X-Ray 07/09/20 17:32 IMPRESSION: Nonacute portable x-ray examination of the chest. Electronically Signed: Duc Gomez MD (Brooks) at 18:27 EDT , Service support , Echocardiogram 07/09/20 19:51 Interpretation Summary The study was technically difficult. Contrast injection was performed. Based upon the 2D echocardiographic and contrast enhanced images obtained there appears to be grossly normal left ventricular size, wall motion, and systolic function. The estimated ejection fraction is 60 %. The left atrium is moderately enlarged. The right atrium is mildly enlarged. There is moderate to severe mitral annular calcification. Extension of the mitral annular calcification onto the base of the posterior mitral valve leaflet. Mild (1+) mitral valve insufficiency. Trivial tricuspid valve insufficiency. Stable appearing bioprosthetic aortic valve apparatus. Trivial pulmonic valve insufficiency. Right ventricular systolic pressure estimated to be 43 mmHg. Transmitral diastolic flow velocities suggest diastolic dysfunction (pseudonormal pattern). Ordering Physician: Virginia Bustamante Referring Physician: Davon Lemus M.D. Performed By: Eric Martinez, CARLO Venous Doppler Study 07/09/20 19:51 Interpretation Summary Deep veins of the lower extremities are bilaterally patent and compressible segmentally. There is no evidence of deep vein thrombosis on either side. Valvular competence appears intact within the proximal deep venous systems bilaterally. The great saphenous veins are absent bilaterally, having been previously harvested. Ordering Physician: Virginia Bustamante Referring Physician: Davon Lemus M.D. Performed By: Lisha Nova, RAMOS, T Renal Ultrasound 07/11/20 13:10 IMPRESSION: Renal cysts are noted of the kidneys. Electronically Signed: Marek Sanchez DO at 16:10 EDT Tel [phone], Service support , Saphenous Venous Mapping 07/13/20 10:30 Interpretation Summary Patent and compressible bilateral upper extremity cephalic and basilic veins as noted. It is of note that the left cephalic vein at the shoulder is more diminutive in size than the remainder of the cephalic vein. The cephalic vein in the upper arm is also very tortuous on the left. Bilateral radial and brachial arteries appear to be of normal diameter and flow Ordering Physician: Damian Brooks Performed By: Darwin Boykin, T ? Chest X-Ray 07/13/20 11:35 IMPRESSION: Placement of a right-sided double-lumen dialysis catheter with the tip at the junction of the superior vena cava and right atrium. Electronically Signed: Keagan Long MD at 12:08 EDT , Service support , - Physical Exam Vitals/I&O's: Vital Signs Temp Pulse Resp BP Pulse Ox 98.2 F 64 18 129/88 H 96 07/15/20 08:48 07/15/20 08:48 07/15/20 08:48 07/15/20 08:48 07/15/20 08:48 Oxygen Flow Rate (L/min) 2.5 Oxygen Delivery Method Nasal Cannula Weight: 255 lb 4.725 oz Body Mass Index (BMI) 37.5 Finger Stick Blood Glucose 269 Intake and Output for Last 24 Hours 07/13/20 07/14/20 07/15/20 23:59 23:59 23:59 Intake Total 650 / 650 1130 / 1130 0 / 0 Output Total 3100 / 3100 3600 / 3600 0 / 0 Balance -2450 / -2450 -2470 / -2470 0 / 0 General: Alert, Oriented x3, Cooperative HEENT: Atraumatic, PERRLA, EOMI, Normocephalic Neck: Supple, No JVD, Negative Carotid Bruits Lungs: Clear to auscultation, Normal air movement Cardiovascular: Regular rate, No murmurs Abdomen: Bowel Sounds Present, Soft, Non Tender Extremities: No edema, Capillary Refill Less than 3 Seconds, - - Improvement of edema around the ankles bilaterally from yesterday. Skin: No rashes, No breakdown Musculoskeletal: No Tenderness to Palpation of Joints or Extremities Neurological: Cranial nerves II-XII grossly intact Psych/Mental Status: Normal Affect, Appropriate Laboratory Results 07/14/20 11:20: Hep Bs Antigen Non-Reactive 07/14/20 17:18: POC Glucose 193 H 07/14/20 21:00: POC Glucose 215 H 07/15/20 06:15: WBC 9.0, RBC 3.51 L, Hgb 9.2 L, Hct 30.8 L, MCV 87.7, MCH 26.2 L, MCHC 29.9 L, RDW Std Deviation 55.0 H, RDW Coeff of Judi 17.2 H, Plt Count 125 L, MPV 9.5, Immature Gran % (Auto) 1.300 H, Neut % (Auto) 76.4 H, Lymph % (Auto) 9.7 L, [place] % (Auto) 9.0, Eos % (Auto) 3.3, Baso % (Auto) 0.3, Absolute Neuts (auto) 6.9, Absolute Lymphs (auto) 0.87, Nucleated RBC % 0 07/15/20 06:15: Sodium 138, Potassium 4.7, Chloride 104, Carbon Dioxide 26.0, Anion Gap 8, BUN 103 H*, Creatinine 4.43 H, Estim Creat Clear Calc 15.74, Est GFR (MDRD) Af Amer 17 L, Est GFR (MDRD) Non-Af 14 L, BUN/Creatinine Ratio 23.3 H, Glucose 258 H, Calcium 8.6 07/15/20 08:44: POC Glucose 286 H Current Medications Acetaminophen (Acetaminophen 325 Mg Tablet) 650 mg PO Q6H PRN PRN PRN Reason: Pain Score 1-10/Temp > 100.7 F Al Hydroxide/Mg Hydroxide (Mag Hydrox/Al Hydrox/Simeth 30 Ml Udc) 30 ml PO Q6H PRN PRN PRN Reason: Gastric Burning Last Admin: 07/14/20 19:49 Dose: 30 ml Documented by: Albuterol Sulfate (Albuterol 2.5 Mg/3 Ml Vial.Neb.) 2.5 mg INHALATION Q2H PRN PRN PRN Reason: Dyspnea, wheezing Albuterol/Ipratropium (Ipratropium/Albuterol Sulfate 3 Ml Ampul.Neb) 3 ml INHALATION Q6HWA.RT [facility] Last Admin: 07/15/20 06:49 Dose: 3 ml Documented by: Allopurinol (Allopurinol 100 Mg Tablet) 100 mg PO DAILY [facility] Last Admin: 07/14/20 13:04 Dose: 100 mg Documented by: Amlodipine Besylate (Amlodipine 5 Mg Tablet) 5 mg PO BID [facility] Last Admin: 07/14/20 21:01 Dose: 5 mg Documented by: Aspirin (Aspirin E.C. 81 Mg Tablet) 81 mg PO DAILY [facility] Last Admin: 07/12/20 08:31 Dose: 81 mg Documented by: Fluoxetine HCl (Fluoxetine 20 Mg Capsule) 40 mg PO DAILY [facility] Last Admin: 07/14/20 13:04 Dose: 40 mg Documented by: Furosemide (Furosemide 80 Mg Tablet) 80 mg PO BID@1000,1800 [facility] Last Admin: 07/14/20 17:28 Dose: 80 mg Documented by: Guaifenesin (Guaifenesin 10 Ml Udc (200mg/10ml)) 20 ml PO Q4H PRN PRN PRN Reason: COUGH Heparin Sodium (Porcine) (Heparin Injection (Vial) 5,000 Unit/Ml Vial) 5,000 unit SC Q12 [facility] Last Admin: 07/14/20 21:01 Dose: 5,000 unit Documented by: Hydralazine HCl (Hydralazine 20 Mg/Ml Vial) 10 mg IV Q4H PRN PRN PRN Reason: SBP > 160 Insulin Glargine (Insulin Glargine 100 Units/Ml Pen) 50 units SC 0800,2200 [facility] Last Admin: 07/15/20 08:52 Dose: 50 units Documented by: Insulin Human Lispro (Insulin Lispro 100 Unit/Ml Insuln.Pen) 36 unit SC TIDCM [facility] Last Admin: 07/15/20 08:51 Dose: 36 u Documented by: Insulin Human Lispro (Insulin Lispro 100 Unit/Ml Insuln.Pen) 0 unit SC ACHS [facility]; Protocol Last Admin: 07/15/20 08:52 Dose: 4 units Documented by: Isosorbide Mononitrate (Isosorbide Mononitrate 30 Mg Tablet) 30 mg PO DAILY [facility] Last Admin: 07/14/20 13:03 Dose: 30 mg Documented by: Melatonin (Melatonin 3 Mg Tablet) 3 mg PO QHS PRN PRN PRN Reason: INSOMNIA Last Admin: 07/13/20 23:16 Dose: 3 mg Documented by: Metoprolol Tartrate (Metoprolol Tartrate 50 Mg Tablet) 50 mg PO BID [facility] Last Admin: 07/14/20 21:02 Dose: 50 mg Documented by: Nitroglycerin (Nitroglycerin (Inpatient Use) 0.4 Mg Tab.Subl) 0.4 mg SL Q5M PRN PRN Reason: CARDIAC/CHEST PAIN Ondansetron HCl (Ondansetron 4 Mg/2 Ml Vial) 4 mg IV Q8H PRN PRN PRN Reason: NAUSEA/VOMITING Oxycodone HCl (Oxycodone 5 Mg Tablet) 5 mg PO Q4H PRN PRN PRN Reason: Pain Score 4-5 Pantoprazole Sodium (Pantoprazole Sodium 40 Mg Tablet) 40 mg PO DAILY [facility] Last Admin: 07/14/20 13:04 Dose: 40 mg Documented by: Prochlorperazine Edisylate (Prochlorperazine 10 Mg/2 Ml Vial) 5 mg IV Q4H PRN PRN PRN Reason: Breakthrough Nausea/Vomiting Psyllium Hydrophilic Mucilloid (Psyllium 1 Packet) 1 packet PO DAILY PRN PRN PRN Reason: Constipation Senna/Docusate Sodium (Senna/Docusate Sodium 1 Tablet) 2 tablet PO BID PRN PRN PRN Reason: Constipation Throat Lozenges (Benzocaine/Menthol 1 Lozenge) 1 lozenge MUCOUS MEM Q2H PRN PRN PRN Reason: SORE THROAT Trazodone HCl (Trazodone 50 Mg Tablet) 50 mg PO QHS PRN PRN Reason: SLEEP Last Admin: 07/11/20 21:56 Dose: 50 mg Documented by: Discharge Diet: No Restrictions Discharge Activity: Return to Normal Activity Home Medications: Medications to take at Discharge Nitroglycerin (INPATIENT USE) [Nitrostat] 0.4 mg SUBLINGUAL Q5M PRN 10/27/13 berberine-herbal comb no.18 capsule 2 cap PO BID cap 02/24/18 Allopurinol 100 mg PO DAILY 02/25/19 Astaxanthin 4 mg PO DAILY 02/25/19 Fluoxetine HCl 40 mg PO DAILY 02/25/19 Insulin Aspart [Novolog Flexpen] 36 units SUBCUT TIDCM 02/25/19 Ubidecarenone [Co Q-10] 400 mg PO BID 11/10/19 fenofibrate 160 mg tablet 160 mg PO DAILY 02/04/20 insulin glargine 100 unit/mL (3 mL) subcutaneous pen 50 unit SUBCUT BID ml 02/04/20 furosemide 80 mg tablet 80 mg PO BID #180 tab 05/16/20 isosorbide mononitrate 30 mg tablet,extended release 24 hr 30 mg PO DAILY #90 tab 05/16/20 metoprolol tartrate 50 mg tablet 50 mg PO BID #180 tab 05/20/20 amlodipine 5 mg tablet 5 mg PO BID #180 tab 06/03/20 Aspirin E.C. [Ecotrin] 81 mg PO DAILY@0800 06/30/20 Pantoprazole Sodium [Protonix] 40 mg PO DAILY 06/30/20 Metolazone [Zaroxolyn] 5 mg PO DAILY 07/09/20 traZODone [Desyrel] 50 mg PO QHS PRN PRN 07/10/20 Primary Care Physician: Davon Lemus MD [Primary Care Provider] - Please follow up with your Primary Care Physician in: Within the next 2 weeks Please Follow Up With: Isi in [place] When: For your scheduled dialysis Saturday, , Saturday Please Follow Up With: Davon Lemus MD When: 2 weeks Disposition: Home Minutes spent on discharge:: 35 Patient Condition:: Good Medical Necessity - Tobacco Use Smoking Status: Former smoker Tobacco Use: Non-smoker Meaningful Use Info Meaningful Use Diagnoses (Choose all that apply): CHF - CHF WILMER/ARB ordered at discharge?: No Reason WILMER/ARB not ordered?: Worsening renal disease Documented LVEF (%): 60 <Liz Saleh - Last Filed: 07/15/20 15:30> Discharge Date and Diagnosis - Primary Discharge Diagnosis Acute Problems: Active Problems (Last Reviewed 07/12/20 @ 15:17 by Mary Jo ALFORD PA-Kristen) Acute exacerbation of CHF (congestive heart failure) (Acute) Acute kidney injury superimposed on CKD (Acute) Elevated d-dimer (Acute) Status post transcatheter aortic valve replacement (Acute) Thrombocytopenia (Acute) - Secondary Discharge Diagnosis Chronic Problems: Chronic Problems (Last Reviewed 07/12/20 @ 15:17 by Mary Jo ALFORD PA-C) Chronic anemia (Chronic) Anxiety and depression (Chronic) Chronic obstructive pulmonary disease (COPD) (Chronic) Chronic respiratory failure with hypoxia (Chronic) Diabetes mellitus, type II (Chronic) History of GI bleed (Chronic) Chronic kidney disease (Chronic) Dyspnea on exertion (Chronic) Kidney disease, chronic, stage IV (GFR 15-29 ml/min) (Chronic) COPD (chronic obstructive pulmonary disease) (Chronic) Sleep apnea (Chronic) Nephrotic range proteinuria (Chronic) Pure hypercholesterolemia (Chronic) Type 2 diabetes mellitus (Chronic) Presence of stent in coronary artery (Chronic ~08/25/14) 07/18/10, PTCA/stent to mid to distal LCx artery; 08/17/10 PTCA/stent to proximal to mid RCA; PTCA of distal RCA with DEX September 2010; PTCA with EULALIO to mid distal AV groove left CFX 08/13 Essential hypertension (Chronic) Nonrheumatic aortic (valve) stenosis (Chronic) Nonspecific abnormal unspecified cardiovascular function study (Chronic) Diastolic dysfunction (Chronic) 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 The study was technically difficult. Contrast injection was performed. Exam performed portable in patient room. Left Ventricle Based upon the 2D echocardiographic and contrast enhanced images obtained there appears to be grossly normal left ventricular size, wall motion, and systolic function. The estimated ejection fraction is 60 %. Right Ventricle Normal RV size. Normal systolic function. Atria The left atrium is moderately enlarged. The right atrium is mildly enlarged. No doppler evidence for ASD. Mitral Valve There is moderate to severe mitral annular calcification. Extension of the mitral annular calcification onto the base of the posterior mitral valve leaflet. Mild (1+) mitral valve insufficiency. Tricuspid Valve The tricuspid valve is not well visualized. Trivial tricuspid valve insufficiency. Right ventricular systolic pressure estimated to be 43 mmHg. Aortic Valve Stable appearing bioprosthetic aortic valve apparatus. Pulmonic Valve The pulmonic valve is not well visualized. Trivial pulmonic valve insufficiency. Great Vessels The aortic root is not well visualized. Pericardium/Pleural No pericardial effusion. Medication Diluted definity 2ml given slow IV push to enhance endocardial definition. MMode/2D Measurements & Calculations LVIDd: 5.4 cm IVSd: 1.6 cm LVOT diam: 2.1 cm LVIDs: 3.6 cm LVPWd: 1.2 cm FS: 33.6 % LVOT area: 3.3 cm2 LA dimension: 4.5 cm LAV(MOD-bp): 88.6 ml LA A4 area: 29.0 cm2 LAV(MOD-bp) Indexed: 38.3 ml/m2 LAV(MOD-sp2): 74.1 ml LAV(MOD-sp4): 94.6 ml RA A4 area: 26.7 cm2 Time Measurements MV dec time: 0.22 sec Doppler Measurements & Calculations MV E max jhon: 142.0 cm/sec Lat Peak E' Jhon: 7.3 cm/sec Med Peak E' Jhon: 6.1 cm/sec MV A max jhon: 98.9 cm/sec E/E' lat: 19.5 E/E' med: 23.4 MV E/A: 1.4 MV V2 max: 181.9 cm/sec MV P1/2t max jhon: 181.9 cm/sec Ao V2 max: 226.2 cm/sec MV max P.2 mmHg MV P1/2t: 99.8 msec Ao max P.5 mmHg MV V2 mean: 92.9 cm/sec MV dec slope: 533.7 cm/sec2 Ao V2 mean: 140.1 cm/sec MV mean P.2 mmHg Ao mean P.3 mmHg MV V2 VTI: 56.5 cm MVA(P1/2t): 2.2 cm2 Ao V2 VTI: 52.2 cm MVA(VTI): 1.6 cm2 LUIS ARMANDO(I,D): 1.7 cm2 LUIS ARMANDO(V,D): 1.7 cm2 LV V1 max: 114.4 cm/sec SV(LVOT): 90.9 ml PA V2 max: 109.1 cm/sec LV V1 max P.3 mmHg LV V1 mean P.9 mmHg LV V1 mean: 79.4 cm/sec LV V1 VTI: 27.3 cm TR max jhon: 317.4 cm/sec TR max P.3 mmHg ECHO/Echo Complete W/ Contrast Interpretation Summary The study was technically difficult. Contrast injection was performed. Based upon the 2D echocardiographic and contrast enhanced images obtained there appears to be grossly normal left ventricular size, wall motion, and systolic function. The estimated ejection fraction is 60 %. The left atrium is moderately enlarged. The right atrium is mildly enlarged. There is moderate to severe mitral annular calcification. Extension of the mitral annular calcification onto the base of the posterior mitral valve leaflet. Mild (1+) mitral valve insufficiency. Trivial tricuspid valve insufficiency. Stable appearing bioprosthetic aortic valve apparatus. Trivial pulmonic valve insufficiency. Right ventricular systolic pressure estimated to be 43 mmHg. Transmitral diastolic flow velocities suggest diastolic dysfunction (pseudonormal pattern). Reason For Study: PAIN RIGHT LEFT CFV is compressible, spontaneous, phasic, CFV is compressible, spontaneous, phasic, competent and demonstrates normal competent, and demonstrates normal augmentation. augmentation. FV is compressible, spontaneous, phasic, FV is compressible, spontaneous, phasic, competent and demonstrates normal competent and demonstrates normal augmentation. augmentation. POP V is compressible, spontaneous, phasic, POP V is compressible, spontaneous, phasic, competent and demonstrates normal competent and demonstrates normal augmentation. augmentation. T/P Trunk is compressible. T/P Trunk is compressible. PTV is compressible. PTV is compressible. RT PerV is compressible. LT PerV is compressible. GSV has been harvested bilaterally for CABG. Procedure Exam performed portable in patient room. A preliminary report was called and/or faxed to [facility]. VL/Venous Duplex US - Rohith Extrem Interpretation Summary Deep veins of the lower extremities are bilaterally patent and compressible segmentally. There is no evidence of deep vein thrombosis on either side. Valvular competence appears intact within the proximal deep venous systems bilaterally. The great saphenous veins are absent bilaterally, having been previously harvested. STUDY: RENAL ULTRASOUND - COMPLETE REASON FOR EXAM: Male, 70 years old. EDGARDO TECHNIQUE: Ultrasound evaluation of the kidneys was performed with real-time and static buchanan-scale imaging. COMPARISON: 11/19/2019. FINDINGS: RIGHT KIDNEY: Normal location of the right kidney, which is normal in size. The right kidney measures 12.1 x 4.9 x 5.6 cm. There is a normal cortex of the right kidney. The renal cortex measures 1.2 cm. There is a 1.5 cm right renal cyst. There are no right renal calculi. There is no right hydronephrosis. DISTAL RIGHT URETER: There is non-visualization of the distal right ureter. There is no demonstrated right ureterovesical junction calculus. LEFT KIDNEY: Normal location of the left kidney, which is normal in size. The left kidney measures 12.5 x 6.5 x 6.7 cm. There is a normal cortex of the left kidney. The renal cortex measures 2.0 cm. There is a 4.1 x 4.7 x 3.7 cm left renal cyst. An exophytic 1 cm cyst is also noted. There are no left renal calculi. There is no left hydronephrosis. DISTAL LEFT URETER: There is non-visualization of the distal left ureter. There is no demonstrated left ureterovesical junction calculus. BLADDER: The distended urinary bladder has a volume of 499 ml. There is a normal wall thickness of the distended urinary bladder. There is no demonstrated mass within the urinary bladder. There are no demonstrated bladder calculi. US/Kidney and Bladder IMPRESSION: Renal cysts are noted of the kidneys. Cardiology Nephrology Procedures: - - Tunneled dialysis catheter placement Summary of Care Provided: I agree with the above and the following is representation my independent history and physical examination. Mr. Gardner is a 70-year-old white male with a past medical history of HFpEF, aortic stenosis status post TAVR, CKD stage IV, chronic normocytic anemia, chronic thrombocytopenia, CAD status post CABG, DM 2, hypertension, COPD, chronic hypoxic respiratory failure on 3 L nasal cannula, hyperlipidemia, history of GI bleed, anxiety, and depression who presented to the emergency department [facility] on 07/09/2020 with a chief complaint of dyspnea and worsening edema. On admission he reported that he had ongoing shortness of breath, weight gain, orthopnea, and bilateral lower extremity edema that had persistently getting worse for approximately 2 weeks prior to presentation. He had a TAVR earlier this year and states he felt amazing after that but he had progressively gotten worse. Upon admission his renal function had noted to be worse and nephrology and cardiology consults were placed at that time. An echocardiogram was performed and showed no worsened valvular issues on his echo and his TAVR appeared stable. He was initially trialed on IV diuretic therapy but this was on not adequate for fluid removal. He eventually elected to reinitiate dialysis and a tunneled dialysis catheter was placed on 07/13/2020. He received dialysis on 07/13 with 1500 cc removal, on 07/14 with 2800 cc removal, and on 07/15 with removal of 2300 cc. He will follow up with Dr. Benites for creation of an AV fistula as an outpatient and once its mature he can have his temporary dialysis catheter removed if his renal function has not improved. He has been set up at for sending us in [place] for continued dialysis on a Saturday//Saturday schedule at this time. Charge time greater than 35 minutes - Physical Exam Vitals/I&O's: Vital Signs Temp Pulse Resp BP Pulse Ox 97.6 F L 66 16 136/70 H 97 07/15/20 13:15 07/15/20 13:19 07/15/20 13:15 07/15/20 13:15 07/15/20 13:15 Oxygen Flow Rate (L/min) 2.5 Oxygen Delivery Method Nasal Cannula Weight: 115.8 kg Body Mass Index (BMI) 37.5 Finger Stick Blood Glucose 269 Intake and Output for Last 24 Hours 07/13/20 07/14/20 07/15/20 23:59 23:59 23:59 Intake Total 650 / 650 1130 / 1130 480 / 480 Output Total 3100 / 3100 3600 / 3600 0 / 0 Balance -2450 / -2450 -2470 / -2470 480 / 480 General: Alert, Oriented x3, Cooperative, No apparent distress, Well developed, Well nourished, - - Older white male lying in bed preparing to get hooked up to dialysis, dialysis nurse is at bedside, patient appears comfortable and nontoxic HEENT: Atraumatic, PERRLA, EOMI, Normocephalic, EAC Clear Oral: Moist Mucosa, No Gingival or Mucosal Lesions/ Ulcerations, - - Mallampati 3, no thrush Neck: Supple, Negative Carotid Bruits, Trachea Midline, Thyroid Normal Size and Texture Lungs: Clear to auscultation, Normal air movement, No rhonchi, No wheeze, No rales Cardiovascular: Regular rate, Regular Rhythm, Normal S1, Normal S2, Murmur, No rub noted, No Gallop Abdomen: Bowel Sounds Present, Soft, Non Tender, Non-Distended, Obese Extremities: No clubbing, No cyanosis, Capillary Refill Less than 3 Seconds, Edema - Trace bilateral lower extremity edema-much improved, Peripheral Pulses Normal, - Skin: No rashes, No breakdown, - - New HD catheter right chest-dressing in place clean and dry Musculoskeletal: No Tenderness to Palpation of Joints or Extremities, No Muscle Wasting, Arthritic Changes Lymphatic: No Cervical, Supraclavicular, or Inguinal Adenopathy Neurological: Cranial nerves II-XII grossly intact, Neuro grossly intact, Muscle tone normal, Coordination normal Psych/Mental Status: Normal Affect, Appropriate Laboratory Results 07/14/20 17:18: POC Glucose 193 H 07/14/20 21:00: POC Glucose 215 H 07/15/20 06:15: WBC 9.0, RBC 3.51 L, Hgb 9.2 L, Hct 30.8 L, MCV 87.7, MCH 26.2 L, MCHC 29.9 L, RDW Std Deviation 55.0 H, RDW Coeff of Judi 17.2 H, Plt Count 125 L, MPV 9.5, Immature Gran % (Auto) 1.300 H, Neut % (Auto) 76.4 H, Lymph % (Auto) 9.7 L, [place] % (Auto) 9.0, Eos % (Auto) 3.3, Baso % (Auto) 0.3, Absolute Neuts (auto) 6.9, Absolute Lymphs (auto) 0.87, Nucleated RBC % 0 07/15/20 06:15: Sodium 138, Potassium 4.7, Chloride 104, Carbon Dioxide 26.0, Anion Gap 8, BUN 103 H*, Creatinine 4.43 H, Estim Creat Clear Calc 15.74, Est GFR (MDRD) Af Amer 17 L, Est GFR (MDRD) Non-Af 14 L, BUN/Creatinine Ratio 23.3 H, Glucose 258 H, Calcium 8.6 07/15/20 08:44: POC Glucose 286 H 07/15/20 13:12: POC Glucose 118 H Inpatient E&M: [id number] Disch Hosp
--- NOTE | 2020-07-15 12:35 | DIALYSIS ---
HD today as ordered. Tolerated well. 3k and uf -2300ml ended on C profile crit line.
[2020-07-15] MEDS: amLODIPine 5 MG Tablet PO (13:18)
[2020-07-15] MEDS: Isosorbide Mononitrate 30 MG Tablet PO (13:18)
[2020-07-15] MEDS: Allopurinol 100 MG Tablet PO (13:18)
[2020-07-15] MEDS: FLUoxetine 20 MG Capsule 40 MG PO (13:18)
[2020-07-15] MEDS: Furosemide 80 MG Tablet PO (13:18)
[2020-07-15] MEDS: Aspirin E.C. 81 MG Tablet PO (13:19)
[2020-07-15] MEDS: Pantoprazole Sodium 40 MG Tablet PO (13:19)
[2020-07-15] MEDS: Heparin Injection (Vial) 5,000 UNIT/ML VIAL 5000 UNIT SC (13:19)
[2020-07-15] MEDS: Metoprolol Tartrate 50 MG Tablet PO (13:19)
[2020-07-15 13:36] LABS: Bedside Glucose 118 mg/dL (70-110)
--- NOTE | 2020-07-15 13:59 | PHA.DC.MR ---
Pharmacy Service has performed discharge medication reconciliation for this patient. No new medications at time of discharge. Medications reviewed are from previously reported home medications. Home Medications Nitroglycerin (INPATIENT USE) [Nitrostat] 0.4 mg SUBLINGUAL Q5M PRN 10/27/13 berberine-herbal comb no.18 capsule 2 cap PO BID cap 02/24/18 Allopurinol 100 mg PO DAILY 02/25/19 Astaxanthin 4 mg PO DAILY 02/25/19 Fluoxetine HCl 40 mg PO DAILY 02/25/19 Insulin Aspart [Novolog Flexpen] 36 units SUBCUT TIDCM 02/25/19 Ubidecarenone [Co Q-10] 400 mg PO BID 11/10/19 fenofibrate 160 mg tablet 160 mg PO DAILY 02/04/20 insulin glargine 100 unit/mL (3 mL) subcutaneous pen 50 unit SUBCUT BID ml 02/04/20 furosemide 80 mg tablet 80 mg PO BID #180 tab 05/16/20 isosorbide mononitrate 30 mg tablet,extended release 24 hr 30 mg PO DAILY #90 tab 05/16/20 metoprolol tartrate 50 mg tablet 50 mg PO BID #180 tab 05/20/20 amlodipine 5 mg tablet 5 mg PO BID #180 tab 06/03/20 Aspirin E.C. [Ecotrin] 81 mg PO DAILY@0800 06/30/20 Pantoprazole Sodium [Protonix] 40 mg PO DAILY 06/30/20 Metolazone [Zaroxolyn] 5 mg PO DAILY 07/09/20 traZODone [Desyrel] 50 mg PO QHS PRN PRN 07/10/20 The patient's discharge medication list was reviewed for discrepancies and discrepancies were resolved.
--- NOTE | 2020-07-18 15:37 | CASEMGMT ---
MARCO A ASTORGA Discharge F/U Phone Call LACE: 13 Strata: 3 Discharge date: 07/15/20 Call date: 07/18/20 Call time: [id number] Admission dx: CHF exacerbation, EDGARDO answered phone and states pt has been doing 'alright' since discharge. states they are working on some med changes with clinical research physician and states no questions regarding discharge instructions/medications. Pt has f/u scheduled and plans to keep on 07/22/20. Pt had dialysis last saturday and plans to go tomorrow. states no suggestions for [facility] and voices no further questions/concerns/needs. SStaten MARCO A ASTORGA
== END 2020-07-15 14:23 | disposition home or self-care (01) | DRG 291 ==
LOC: ED 18:25 → PCU 20:47
PROVIDERS: Anesthesiology; Internal Medicine; Nurse Practitioner Family; Physician Assistant; Surgery; Admitting Provider Family Medicine; Emergency Provider Emergency Medicine; PCP Internal Medicine; Visit Provider Internal Medicine
PROC: 0JH63XZ Insertion of Tunneled Vascular Access Device into Chest Subcutaneous Tissue and Fascia, Percutaneous Approach (ICD-10-PCS; principal; 2020-07-13 10:15)
DX: I13.0 Hypertensive heart and chronic kidney disease with heart failure and stage 1 through stage 4 chronic kidney disease, or unspecified chronic kidney disease (principal); I50.33 Acute on chronic diastolic (congestive) heart failure; N18.4 Chronic kidney disease, stage 4 (severe); N17.9 Acute kidney failure, unspecified; J96.11 Chronic respiratory failure with hypoxia; E11.22 Type 2 diabetes mellitus with diabetic chronic kidney disease; I35.0 Nonrheumatic aortic (valve) stenosis; J44.9 Chronic obstructive pulmonary disease, unspecified; I25.10 Atherosclerotic heart disease of native coronary artery without angina pectoris; B35.9 Dermatophytosis, unspecified; E78.5 Hyperlipidemia, unspecified; K21.9 Gastro-esophageal reflux disease without esophagitis; G47.33 Obstructive sleep apnea (adult) (pediatric); F32.9 Major depressive disorder, single episode, unspecified; F41.9 Anxiety disorder, unspecified; E66.9 Obesity, unspecified; Z68.38 Body mass index [BMI] 38.0-38.9, adult; Z91.19 Patient's noncompliance with other medical treatment and regimen; Z99.81 Dependence on supplemental oxygen; Z79.4 Long term (current) use of insulin; Z79.82 Long term (current) use of aspirin; Z79.899 Other long term (current) drug therapy; Z87.891 Personal history of nicotine dependence; Z95.3 Presence of xenogenic heart valve; Z95.1 Presence of aortocoronary bypass graft; Z95.5 Presence of coronary angioplasty implant and graft; Z96.653 Presence of artificial knee joint, bilateral
CPT/HCPCS: 36415; 71045; 76000; 76770; 80048; 80053; 80061; 81001; 82962; 83036; 83735; 83880; 84439; 84443; 84484; 85025; 85027; 85379; 85610; 87340; 87635; 90937; 93005; 93306; 93970; 94002; 94003; 94640; 97110; 97162; 97165; 97530; 99251; 99285; Q9957; A4216; C1750; C8929; G0257; G0463; J1940; J2405; U0002

== ENCOUNTER → 2020-08-05 12:03 | Outpatient (CLI) | payer MEDICARE, OTHER, SELFPAY ==
[2020-02-04 10:55] VITALS: BMI 36.8
[2020-07-29 08:02] VITALS: BMI 34.7
[2020-08-05 12:39] VITALS: PULSE 70; PULSE 79; PULSE 82; PULSE 83; PULSE 88; O2SAT 87; O2SAT 89; O2SAT 90; O2SAT 91; O2SAT 92; O2SAT 93; O2SAT 96
--- NOTE | 2020-08-05 12:45 | CPS ---
Came in with O2 on at 2 lpm stopped and did not have to put back on until 240 into the test where he dropped to 87% finished the rest on 2 lpm. He also rested until 310 into test continued to walk until 537 and rested the rest of the test.
--- NOTE | 2020-08-06 08:58 | PCM.PSN.6M ---
PSN 6 Minute Walk Test 6 Minute Walk Test 6 Minute Walk Test: 6 Minute Walk Test PSN:6-Minute Walk Test Start: 08/05/20 12:39 Freq: Status: Active Protocol: [id number] Document 08/05/20 12:39 FR (Rec: 08/05/20 12:49 FR [id number]) 6 Minute Walk Test Date Performed 08/05/20 Time Performed 12:15 Height 5 ft 9 in Weight: 235 lb Weight in Pounds 235.[address]: Nathaniel/Paddy Assistive device used: Walker Pre-test Oxygen Delivery Method Room Air Pulse Ox (%) 96 Pulse Rate (60-100 beats/min) 70 1st minute Oxygen Delivery Method Room Air Pulse Ox (%) 93 Pulse Rate (60-100 beats/min) 82 Number of Rests Taken 1 Reported Symptoms Increased Work of Breathing, Dizziness 2nd minute Oxygen Delivery Method Room Air Pulse Ox (%) 90 Pulse Rate (60-100 beats/min) 83 Number of Rests Taken 1 Reported Symptoms Increased Work of Breathing, Dizziness 3rd minute Oxygen Flow Rate (L/min) (L/min) 2 Pulse Ox (%) 87 Pulse Rate (60-100 beats/min) 83 4th minute Oxygen Flow Rate (L/min) (L/min) 2 Oxygen Delivery Method Nasal Cannula Pulse Ox (%) 92 Pulse Rate (60-100 beats/min) 82 5th minute Oxygen Flow Rate (L/min) (L/min) 2 Oxygen Delivery Method Nasal Cannula Pulse Ox (%) 89 Pulse Rate (60-100 beats/min) 88 Number of Rests Taken 1 Reported Symptoms Increased Work of Breathing, Dizziness 6th minute Oxygen Flow Rate (L/min) (L/min) 2 Oxygen Delivery Method Nasal Cannula Pulse Ox (%) 91 Pulse Rate (60-100 beats/min) 82 Dyspnea [place] Scale (0-10) 6 Exertion [place] Scale (6-20) 13 Reported Symptoms Increased Work of Breathing, Dizziness Post-test Oxygen Flow Rate (L/min) (L/min) 2 Oxygen Delivery Method Nasal Cannula Pulse Ox (%) 93 Pulse Rate (60-100 beats/min) 79 Full Laps Walked 4 Partial Lap, Number of Tiles Walked 0 Total Distance Walked (ft) 236 08/05/20 12:45 Cardiopulmonary Services by Julia Brooks Came in with O2 on at 2 lpm stopped and did not have to put back on until 240 into the test where he dropped to 87% finished the rest on 2 lpm. He also rested until 310 into test continued to walk until 537 and rested the rest of the test. Initialized on 08/05/20 12:45 - END OF NOTE Interpretation Interpretation: The patient ambulated 236 feet over the course of 6 minutes with the use of a walker. Pretesting oxygen saturation was noted to be 96% on room air. With ambulation, the ashlie oxygen saturation was 87%. 2 L/min of supplemental oxygen was applied and the patient was able to complete the remainder of the test while maintaining appropriate oxygen saturations. There was evidence of both impaired walk distance and significant exertional oxygen desaturation. Recommendations Recommendations: 2 L/min of supplemental oxygen should be utilized with exertion.
== END ==
PROVIDERS: PCP Internal Medicine; Referring Provider Nurse Practitioner Acute Care; Visit Provider Nurse Practitioner Acute Care
DX: R06.00 Dyspnea, unspecified (principal)
CPT/HCPCS: 94618

== ENCOUNTER → 2020-08-23 07:31 | Outpatient (CLI) | payer MEDICARE, OTHER, SELFPAY ==
[2020-08-09 08:59] VITALS: BMI 35.4
[2020-08-10 10:17] VITALS: BMI 36.5
--- NOTE | 2020-08-23 13:27 | PFTCOMP_ITS ---
COMPLETE PULMONARY FUNCTION TEST INTERPRETATION Brief HPI: Patient is a 70 year old male, currently under the care of Nai Armstrong, who presents to [facility] for complete pulmonary function tests secondary to diagnosis of dyspnea. Respiratory therapist reports good effort and reproducible results. Interpretation: Forced expiration spirometry shows no large airways obstructive ventilatory defect with an FEV1 of 85% predicted. There is no significant bronchodilator response by strict ATS criteria. Spirograms are of good quality and plateau normally. The respiratory flow volume loop shows a normal pattern. Lung volumes by body plethysmography show a normal total lung capacity at 6.36 L, 101% predicted. All other lung volumes are within normal limits. Diffusion capacity by carbon monoxide is decreased at 46% predicted. The airway resistance is elevated. Compared to previous pulmonary function tests from 02/17/2015, there is been a significant reduction in FEV1, TLC and DLCO by 14%, 18% and 28% respectively. Impression: Isolated reduction in diffusing capacity consistent with a pulmonary vascular disorder
== END ==
PROVIDERS: PCP Internal Medicine; Referring Provider Nurse Practitioner Acute Care; Visit Provider Nurse Practitioner Acute Care
DX: J96.11 Chronic respiratory failure with hypoxia (principal); J45.909 Unspecified asthma, uncomplicated
CPT/HCPCS: 94060; 94726; 94729

== ENCOUNTER 2020-08-25 18:38 | Emergency (ER) | payer OTHER, MEDICARE, SELFPAY ==
[2020-08-23 10:11] VITALS: BMI 36.3
[2020-08-25 18:40] VITALS: BP 148/73; PULSE 85; RESP 15; TEMP 36.6; O2SAT 95
--- NOTE | 2020-08-25 18:52 | CT_ITS ---
STUDY: CT BRAIN WITHOUT CONTRAST REASON FOR EXAM: Male, 70 years old. Trauma. Slipped on wet floor and hit left side of head. No loss of consciousness. RADIATION DOSAGE (If Supplied By Facility): CTDIvol = ( 44.99 ) mGy, DLP = ( 880.47 ) mGycm TECHNIQUE: Transaxial CT imaging of the brain was performed without administration of intravenous contrast material. Individualized dose optimization techniques were used for this CT. COMPARISON: 06/20/2017. FINDINGS: Normal soft tissue structures. Normal calvarium. Normal size ventricles and extra-axial spaces for the patient''s age. Normal white matter tracts of the cerebral hemispheres. There are small punctate calcifications of the basal ganglia which are seen in the aging brain as a normal variant. Normal brainstem. Normal cerebellum. There is no intracranial hemorrhage. There are no findings of an acute ischemic infarction. Normal visualized paranasal sinuses. CT/Brain/Head without Contrast IMPRESSION: No acute intracranial or calvarial abnormality. There is no major interval change. Electronically Signed: Luis E Fishman DO at 19:52 EDT Tel [phone], Service support ,
--- NOTE | 2020-08-25 18:52 | CT_ITS ---
STUDY: CT CERVICAL SPINE WITHOUT CONTRAST REASON FOR EXAM: Male, 70 years old. Trauma. Slipped on wet floor and hit left side of the head on floor. No loss of consciousness. RADIATION DOSAGE (If Supplied By Facility): CTDIvol = ( 29.90 ) mGy, DLP = ( 629.04 ) mGycm TECHNIQUE: High resolution transaxial imaging was performed without contrast material. Sagittal and coronal images were reconstructed. Individualized dose optimization techniques were used for this CT. COMPARISON: 04/06/2014. FINDINGS: Normal craniovertebral junction. 2 Normal odontoid process. Normal cervical lordosis. Normal vertebral bodies and posterior osseous elements. C2-3: Normal endplates. Mild loss of disc height. Facet and uncovertebral joint degenerative change. Normal central canal and intervertebral neuroforamina. C3-4: Mild endplate spondylosis. Minimal loss of disc height. Facet and uncovertebral joint degenerative change. Normal central canal and intervertebral neuroforamina. C4-5: Endplate spondylosis. Minimal loss of disc height. Facet joint degenerative change. Normal central canal and intervertebral neuroforamina. C5-6: Endplate spondylosis. Marked loss of disc height. Facet and uncovertebral joint degenerative change. Normal central canal. Mild narrowing of the left intervertebral neuroforamen. C6-7: Endplate spondylosis. Loss of disc height. Facet and uncovertebral joint degenerative change Normal central canal and intervertebral neuroforamina. C7-T1: Normal endplates. Loss of disc height with endplate spondylosis. Normal central canal and intervertebral neuroforamina. Lymph nodes in the posterior aspect of the right superior mediastinum. CT/Spine Cervical without Contras IMPRESSION: Stable degenerative changes cervical spine without acute fracture or subluxation. Note: MRI is more sensitive than CT in detecting cord injury, ligamentous injury and epidural hematoma. If there is continued clinical concern for any of these entities, MRI should be considered. Electronically Signed: Luis E Fishman DO at 19:51 EDT Tel [phone], Service support ,
--- NOTE | 2020-08-25 19:20 | RAD_ITS ---
STUDY: X-RAY CHEST REASON FOR EXAM: Male, 70 years old. Trauma. Fall. Slipped on wet floor and fell directly on chest. Hit left side of head on floor. TECHNIQUE: Single AP portable view of the chest. COMPARISON: 07/09/2020. FINDINGS: There is a large bore right jugular hemodialysis catheter with its tip at the atriocaval junction. The lungs are clear and expanded. No mass or infiltrate. No pneumothorax. There is no demonstrated pleural abnormality. Sternal cerclage wires are present from a prior sternotomy. The heart remains mildly enlarged. Normal mediastinum and ursula. Normal visualized pulmonary arteries. There is atherosclerotic calcification of the aortic arch with tortuosity. There are diffuse degenerative changes of the visualized thoracic spine. There is degenerative osteoarthritis of the bilateral shoulders. There is no demonstrated abnormality of the visualized soft tissue structures of the upper abdomen. RAD/Chest 1 View (Portable) IMPRESSION: 1. Right jugular hemodialysis catheter. 2. No evidence of acute thoracic abnormality or other interval change. Electronically Signed: Luis E Fishman DO at 19:59 EDT Tel [phone], Service support ,
--- NOTE | 2020-08-25 20:39 | EX.ED.DYSGE1 ---
HPI History of Present Illness Chief Complaint: Fall Informant: patient Onset/Context/Timing Onset: Today Context: Sudden Onset Location: Head, neck, chest Current Severity: Moderate Worsened by: None Relieved by: None Associated Symptoms Associated Symptoms: None Narrative Narrative: Patient slipped on wet floor at [employer] and injured his chest. He hit his head but did not lose consciousness. He complains of neck pain. Denies any weakness or numbness or other associated symptoms. Prior similar symptoms: No Recent Illness/Hospitalization: No PFSH PFSH Medical History Aortic valve disease Arthritis Atherosclerotic heart disease of [place] coronary artery without angina pectoris Cardiology follow-up encounter (~08/10/20) COPD (chronic obstructive pulmonary disease) COPD (chronic obstructive pulmonary disease) Coronary atherosclerosis of [place] coronary artery CPAP (continuous positive airway pressure) dependence Diabetes Diabetes mellitus Diastolic dysfunction Essential hypertension Former smoker Gastric reflux GI bleed (~10/2019) History of diverticulitis History of hiatal hernia History of renal dialysis History of renal disease History of stress test (~07/23/18) HTN (hypertension) Hypertension Insulin dependent diabetes mellitus Nonrheumatic aortic (valve) stenosis Normal echocardiogram (~08/18/20) On home oxygen therapy Presence of stent in coronary artery (~08/25/14) Pure hypercholesterolemia Shortness of breath on exertion Skin tear Sleep apnea Type 2 diabetes mellitus Wears dentures Wears hearing aid Home Medications nitroglycerin 0.4 mg SUBLINGUAL Q5M PRN 10/27/13 [History Last Taken Unknown] berberine-herbal comb no.18 capsule 2 cap PO BID cap 02/24/18 [History Last Taken 11/10/19] allopurinol 100 mg PO DAILY 02/25/19 [History Last Taken 11/10/19] astaxanthin 4 mg PO DAILY 02/25/19 [History Last Taken 11/10/19] insulin aspart U-100 36 units SUBCUT TIDCM 02/25/19 [History Last Taken 11/10/19] coenzyme Q10 400 mg PO BID 11/10/19 [History Last Taken 11/10/19] fenofibrate 160 mg tablet 160 mg PO DAILY 02/04/20 [History Last Taken Unknown] insulin glargine 100 unit/mL (3 mL) subcutaneous pen 50 unit SUBCUT BID ml 02/04/20 [History Last Taken Unknown] isosorbide mononitrate 30 mg tablet,extended release 24 hr 30 mg PO DAILY #90 tab 05/16/20 [Rx Last Taken Unknown] aspirin 81 mg PO DAILY@0800 06/30/20 [History Last Taken Unknown] pantoprazole 40 mg PO DAILY 06/30/20 [History Last Taken Unknown] trazodone 50 mg PO QHS PRN PRN 07/10/20 [History Last Taken Unknown] albuterol sulfate 90 mcg/actuation aerosol inhaler 2 puff INHALATION BID 08/09/20 [History Last Taken Unknown] amlodipine 5 mg tablet 5 mg PO BID PRN #180 tablet 08/10/20 [Rx Last Taken Unknown] fluoxetine 60 mg tablet 60 mg PO DAILY 08/10/20 [History Last Taken Unknown] metolazone 5 mg tablet 5 mg PO DAILY PRN 08/10/20 [History Last Taken Unknown] metoprolol tartrate 25 mg tablet 25 mg PO BID #180 tab 08/10/20 [Rx Last Taken Unknown] furosemide 40 mg PO BID PRN 08/24/20 [History Last Taken Unknown] Allergy/AdvReac Type Severity Reaction Status Date / Time carvedilol [From Coreg] Allergy Severe vomiting Verified 08/24/20 13:21 valsartan [From Diovan] Allergy Severe Possible Verified 08/24/20 13:21 angioedema, throat swelling sertraline HCl [From Zoloft] Allergy Unknown Verified 08/24/20 13:21 bupropion HCl AdvReac gets mean Verified 08/24/20 13:21 [From Wellbutrin] citalopram AdvReac Other Verified 08/24/20 13:21 gabapentin AdvReac Other Verified 08/24/20 13:21 Family History Father CAD (coronary artery disease) Afib Aortic valve replaced Prostate cancer Mother Cancer Son Lupus Surgical History History of bilateral knee replacement History of cardiac catheterization (~06/24/20) History of carpal tunnel repair History of cholecystectomy History of colonoscopy (~12/2019) History of esophagogastroduodenoscopy (EGD) (~12/2019) History of partial colectomy History of repair of rotator cuff Presence of coronary angioplasty implant and graft S/P CABG x 3 (~07/21/12) S/P PTCA (percutaneous transluminal coronary angioplasty) Social History Smoking Status: Former smoker how long ago did patient quit smokin alcohol intake: never substance use type: does not use caffeine: No what type of physical activity do you participate in: none seatbelt use: always do you feel safe at home: Yes ROS ROS ED Constitutional Constitutional ED: Denies chills or fever(s) Eyes Eyes: Denies blurry vision or change in vision ENT ENT ED: Denies ear pain or rhinorrhea Cardiovascular Cardiovascular: Reports chest pain; Denies palpitations Respiratory/Chest Respiratory/Chest: Denies cough or dyspnea Gastrointestinal Gastrointestinal: Denies abdominal pain, nausea or vomiting Genitourinary Genitourinary ED: Denies dysuria or hematuria Musculoskeletal Musculoskeletal: Reports arthralgias, myalgias and neck pain; Denies back pain Integumentary Denies abscess or rash Neurologic Neurologic: Reports headache(s); Denies paresthesias or weakness Psychiatric Psychiatric: Denies anxiety or depression Endocrine Endocrinology: Denies polydipsia or polyuria EXAM Physical Exam Const Vital Signs: 08/25/20 18:40 08/25/20 20:50 Temperature 97.8 F Temperature Source Oral Pulse Rate 85 84 Respiratory Rate 15 16 Blood Pressure 148/73 H 132/69 H Blood Pressure Mean 98 Pulse Ox 95 97 Oxygen Delivery Method Room Air Positive well nourished and well developed General Appearance ED: well developed HEENT Negative for trauma or tenderness Eyes PERRL and EOMs intact bilaterally Neck no lymphadenopathy and supple Chest Wall inspection of chest normal and palpation of chest normal Resp normal respiratory effort and clear to auscultation bilaterally Cardio regular rate and regular rhythm GI normal to inspection, nondistended, normoactive bowel sounds Extremity normal to inspection General Extremety ED: Negative for edema or tenderness General Extremity: Negative for edema Neuro oriented x3, CN's II-XII intact bilaterally and no sensory deficits noted Sensorium / Orientation: alert Motor Exam: strength 5/5 throughout Psych mental status grossly normal Skin no rashes or lesions noted MDM MDM MDM Narrative Medical decision making narrative: Imaging was obtained of the patient's injured areas. No acute abnormalities. I have low suspicion for any significant or operable injury. Patient will be discharged home. Radiography Chest X-Ray - ED: Read by ED Physician and Chronic Changes Diagnostic Testing: Radiology Impression Brain CT 08/25/20 18:52 IMPRESSION: No acute intracranial or calvarial abnormality. There is no major interval change. Electronically Signed: Luis E Fishman DO at 19:52 EDT Tel [phone], Service support , Cervical Spine CT 08/25/20 18:52 IMPRESSION: Stable degenerative changes cervical spine without acute fracture or subluxation. Note: MRI is more sensitive than CT in detecting cord injury, ligamentous injury and epidural hematoma. If there is continued clinical concern for any of these entities, MRI should be considered. Electronically Signed: Luis E Fishman DO at 19:51 EDT Tel [phone], Service support , Chest X-Ray 08/25/20 19:20 IMPRESSION: 1. Right jugular hemodialysis catheter. 2. No evidence of acute thoracic abnormality or other interval change. Electronically Signed: Luis E Fishman DO at 19:59 EDT Tel [phone], Service support , Discharge Plan Triage Chief Complaint: Fall ED Provider: Seth Schwarz Dx/Rx/DC Orders Clinical Impression: Acute chest wall pain, Concussion, Cervical strain Instructions: ED Concussion Prescriptions: No Action berberine-herbal comb no.18 capsule capsule 2 cap PO BID RF: 0 fenofibrate 160 mg tablet 160 mg PO DAILY RF: 0 fluoxetine 60 mg tablet 60 mg PO DAILY RF: 0 amlodipine 5 mg tablet 5 mg PO BID PRN (Reason: high blood pressure) Qty: 180 RF: 3 Hold Instructions: Hypotension on dialysis metoprolol tartrate 25 mg tablet 25 mg PO BID Qty: 180 RF: 3 albuterol sulfate 90 mcg/actuation HFA aerosol inhaler 2 puff inhalation BID RF: 0 nitroglycerin 0.4 MG tablet 0.4 mg sublingual Q5M PRN (Reason: Chest Pain) RF: 0 astaxanthin 4 MG capsule 4 mg PO DAILY RF: 0 allopurinol 100 MG tablet 100 mg PO DAILY RF: 0 insulin aspart U-100 100 UNITS/ML insulin pen 36 units subcut TIDCM RF: 0 coenzyme Q10 400 MG capsule 400 mg PO BID RF: 0 insulin glargine 100 unit/mL (3 mL) insulin pen 50 unit subcut BID RF: 0 aspirin 81 MG tablet 81 mg PO DAILY@0800 RF: 0 pantoprazole 40 MG tablet 40 mg PO DAILY RF: 0 trazodone 50 MG tablet 50 mg PO QHS PRN PRN (Reason: Sleep) RF: 0 metolazone 5 mg tablet 5 mg PO DAILY PRN (Reason: diuretic) RF: 0 furosemide 20 mg tablet 40 mg PO BID PRN (Reason: water) RF: 0 isosorbide mononitrate 30 mg tablet extended release 24 hr 30 mg PO DAILY Qty: 90 RF: 3 Primary Care Provider: Davon Lemus Referrals: Davon Lemus MD [Primary Care Provider] - Disposition Disposition: Home, self care Discharge Date/Time: 08/25/20 20:58
[2020-08-25 20:50] VITALS: BP 132/69; PULSE 84; RESP 16; O2SAT 97
== END 2020-08-25 20:58 | disposition home or self-care (01) ==
PROVIDERS: Emergency Provider Emergency Medicine; PCP Internal Medicine
DX: R07.89 Other chest pain (principal); S06.0X9A Concussion with loss of consciousness of unspecified duration, initial encounter; S16.1XXA Strain of muscle, fascia and tendon at neck level, initial encounter; I25.10 Atherosclerotic heart disease of native coronary artery without angina pectoris; W19.XXXA Unspecified fall, initial encounter; Z87.891 Personal history of nicotine dependence
CPT/HCPCS: 70450; 71045; 72125; 99284; J7030

== ENCOUNTER 2020-09-01 08:31 | Day surgery (SDC) | payer MEDICARE, OTHER, SELFPAY ==
[2020-08-10 10:17] VITALS: BMI 36.5
[2020-08-25 11:09] LABS: Hematocrit 37.7 % (40-54); Hemoglobin 11.7 g/dL (13.0-16.5); Mean Corpuscular Hgb 27.1 pg (27.0-32.0); Mean Corpuscular Volume 87.3 fL (80-94); Mean Platelet Vol. 9.5 fl (6.2-12.0); Platelet Count 155 K/mm3 (150-450); RBC Distribution Width CV 16.5 % (11.6-14.6); RBC Distribution Width SD 52.8 fl (35.1-43.9); Red Blood Count 4.32 M/mm3 (4.6-6.2); White Blood Count 10.3 K/mm3 (4.4-11.0)
[2020-08-25 11:47] LABS: Anion Gap 12 (5-15); BUN 48 mg/dL (7-18); BUN/Creat Ratio 10.9 RATIO (10-20); Calcium,Total 8.3 mg/dL (8.5-10.1); Chloride 99 mmol/L (98-107); Creatinine, Serum 4.39 mg/dL (0.70-1.30); EST Glomerular Filtration Rate 14 mL/min (>60); Est Glom Filt Rate - Afr Amer 17 mL/min (>60); Glucose 308 mg/dL (74-106); Potassium 3.5 mmol/L (3.5-5.1); Sodium Level 137 mmol/L (136-145)
[2020-09-01 09:02] VITALS: BP 170/74; PULSE 71; RESP 16; TEMP 37.6; O2SAT 95; BMI 36.9
[2020-09-01 09:40] LABS: Bedside Glucose 318 mg/dL (70-110)
--- NOTE | 2020-09-01 10:32 | HP.PCM_ITS ---
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 Accompanied by: Is patient in pain?: No Allergies carvedilol [From Coreg] Allergy (Severe, Verified 08/23/20 10:09) vomiting valsartan [From Diovan] Allergy (Severe, Verified 08/23/20 10:09) Possible angioedema, throat swelling sertraline HCl [From Zoloft] Allergy (Verified 08/23/20 10:09) Unknown bupropion HCl [From Wellbutrin] Adverse Reaction (Verified 08/23/20 10:09) gets mean citalopram Adverse Reaction (Verified 08/23/20 10:09) Other gabapentin Adverse Reaction (Verified 08/23/20 10:09) Other Medications nitroglycerin 0.4 mg SUBLINGUAL Q5M PRN 10/27/13 [History Confirmed 08/23/20] berberine-herbal comb no.18 capsule 2 cap PO BID cap 02/24/18 [History Confirmed 08/23/20] allopurinol 100 mg PO DAILY 02/25/19 [History Confirmed 08/23/20] astaxanthin 4 mg PO DAILY 02/25/19 [History Confirmed 08/23/20] insulin aspart U-100 36 units SUBCUT TIDCM 02/25/19 [History Confirmed 08/23/20] coenzyme Q10 400 mg PO BID 11/10/19 [History Confirmed 08/23/20] fenofibrate 160 mg tablet 160 mg PO DAILY 02/04/20 [History Confirmed 08/23/20] insulin glargine 100 unit/mL (3 mL) subcutaneous pen 50 unit SUBCUT BID ml 02/04/20 [History Confirmed 08/23/20] isosorbide mononitrate 30 mg tablet,extended release 24 hr 30 mg PO DAILY #90 tab 05/16/20 [Rx Confirmed 08/23/20] aspirin 81 mg PO DAILY@0800 06/30/20 [History Confirmed 08/23/20] pantoprazole 40 mg PO DAILY 06/30/20 [History Confirmed 08/23/20] trazodone 50 mg PO QHS PRN PRN 07/10/20 [History Confirmed 08/23/20] albuterol sulfate 90 mcg/actuation aerosol inhaler 2 puff INHALATION Q6H PRN 08/09/20 [History Confirmed 08/23/20] amlodipine 5 mg tablet 5 mg PO BID PRN #180 tablet 08/10/20 [Rx Confirmed 08/23/20] fluoxetine 60 mg tablet 60 mg PO DAILY 08/10/20 [History Confirmed 08/23/20] furosemide 20 mg tablet 20 mg PO BID PRN #180 tab 08/10/20 [Rx Confirmed 08/23/20] metolazone 5 mg tablet 5 mg PO DAILY PRN 08/10/20 [History Confirmed 08/23/20] metoprolol tartrate 25 mg tablet 25 mg PO BID #180 tab 08/10/20 [Rx Confirmed 08/23/20] PFSH Medical History Aortic valve disease Atherosclerotic heart disease of [place] coronary artery without angina pectoris COPD (chronic obstructive pulmonary disease) Coronary atherosclerosis of [place] coronary artery Diabetes mellitus Diastolic dysfunction Essential hypertension GI bleed (~10/2019) HTN (hypertension) Nonrheumatic aortic (valve) stenosis Presence of stent in coronary artery (~08/25/14) Pure hypercholesterolemia Sleep apnea Type 2 diabetes mellitus Surgical History History of bilateral knee replacement History of carpal tunnel repair History of cholecystectomy History of colonoscopy (~12/2019) History of esophagogastroduodenoscopy (EGD) (~12/2019) History of partial colectomy History of repair of rotator cuff Presence of coronary angioplasty implant and graft S/P CABG x 3 (~07/21/12) S/P PTCA (percutaneous transluminal coronary angioplasty) Family History Father CAD (coronary artery disease) Afib Aortic valve replaced Prostate cancer Mother Cancer Son Lupus Social History Smoking Status: Former smoker how long ago did patient quit smokin alcohol intake: never substance use type: does not use caffeine: No what type of physical activity do you participate in: none seatbelt use: always do you feel safe at home: Yes HPI HPI HPI: KYLE WOMACK, is a 70 M who presents to the office today for an update history and physical for an elective left forearm fistula creation. Patient denies recent hospitalizations or illnesses since his last office visit with us. He denies complications or side effects from anesthesia. He was recently placed back on dialysis with urgent dialysis catheter placement by Dr. Brooks. He dialyzes M, W, F. He is currently maintained on daily aspirin. He recently in May 2020 had a transcatheter aortic valve replacement at [facility]. He seems to be recovering well from that procedure. Patient continues to use oxygen 2 liters via nasal canula portable oxygen. He follows with Dr. Reid for pulmonary. Patient's previous history per Dr. Brooks: KYLE WOMACK, is a 70 M who presents to the office today for surgical consultation regarding creation of arteriovenous hemodialysis fistula. The patient was urgently recently hospitalized and I placed right internal jugular tunneled dialysis catheters in him. I performed that on July 13, 2020. This is at least the second course of treatment with the patient's had to have a urgent catheters placed for hemodialysis. His first episode he had recovery of renal function to allow for hemodialysis to be discontinued. It is the current impression however that he will require long-term dialysis although his creatinine is slowly improving. He is right arm dominant. On July 14 at the [facility] he had bilateral upper extremity vein mapping as noted below Reason For Study: fistula vein mapping Right Arm Left Arm Right cephalic vein is compressible. Left cephalic vein is compressible. Right Cephalic Vein at the shoulder Left Cephalic Vein at the shoulder measures .4 x .43 cm. measures .17 x .17 cm. Right Cephalic Vein mid bicep measures .43 Left Cephalic Vein at mid bicep measures .36 x .47 cm. x .35 cm. Right Cephalic Vein above antecub Left Cephalic Vein above antecub measures .4 measures .45 x .49 cm. x .39 cm. Right Cephalic Vein below antecub Left Cephalic Vein below antecub measures .4 measures .38 x .39 cm. x .42 cm. Right Cephalic Vein in the forearm Left Cephalic Vein in the forearm measures .36 x .37 cm. measures .39 x .43 cm. Right Cephalic Vein at the wrist measures .48 Left Cephalic Vein at the wrist measures .4 x .46 cm. x .39 cm. Right basilic vein is compressible. Cephalic vein is tortuous in the upper arm. Right Basilic Vein mid bicep measures .68 Left basilic vein is compressible. x .74 cm. Basilic vein at bicep measures .79 x .82 cm. Right Basilic Vein above antecub measures .65 Basilic vein above antecub measures .64 x .64 x .65 cm. cm. Right Basilic Vein below antecub measures .31 Basilic vein below antec ub measures .22 x .22 x .34 cm. cm. Right Basilic Vein in the forearm Basilic vein in the forearm measures .16 measures .22 x .26 cm. x .18 cm. Right Basilic Vein at the wrist measures .22 Basilic vein at the wrist measures .17 x .15 x .26 cm. cm. Brachial art .5 x .55 cm Brachial art .5 x .5 cm Brachial art 83.4 cm/s Brachial art 108.9 cm/s Radial art .22 x .23 cm Radial art .21 x .24 cm Radial art 76.9 cm/s. Radial art 99.3 cm/s. VL/Saphenous Vein Mapping, Bilat Interpretation Summary Patent and compressible bilateral upper extremity cephalic and basilic veins as noted. It is of note that the left cephalic vein at the shoulder is more diminutive in size than the remainder of the cephalic vein. The cephalic vein in the upper arm is also very tortuous on the left. Bilateral radial and brachial arteries appear to be of normal diameter and flow Ordering Physician: Damian Brooks Performed By: Darwin Boykin, RVT General General: Yes fatigue; No weight change, appetite, colon cancer, breast cancer or weakness HEENT HEENT: Yes difficulty swallowing; No eye injury, eye surgery, swollen glands or hoarseness Endo Endocrine: Yes diabetes mellitus; No thyroid disease, thyroid cancer, Hair loss, heat intolerance or cold intolerance Skin Skin: No rash or changing moles Additional Details: Ecchymosis from IVs Musc Musculoskeletal: Yes arthritis and gout; No back problems, rheumatoid arthritis or joint pain Cardio Additional Details: Chronic oxygen requirement Psych Psychiatric: Yes depression and anxiety; No hearing voices Resp Respiratory: Yes shortness of breath Gastro Gastrointestinal: No abdominal pain Sunny Hematologic: Yes blood thinners, No blood disorders, No bleeding, No anemia and No blood clots Additional Details: Low-dose aspirin Neuro Neurologic: Yes system reviewed and no additional complaints, except as documented and No weakness Exam Const General: cooperative, comfortable and no acute distress HENMT Head: normal to inspection Eyes General: appearance normal, both eyes and all related structures Neck Neck: normal visual inspection Neck mass: No Resp Effort & Inspection: normal respiratory effort Auscultation: clear to auscultation bilaterally Cardio Rate: regular rate Rhythm: regular rhythm GI Inspection: normal to inspection and obesity Palpation: soft Auscultation: normal bowel sounds Skin General: no rashes or lesions noted Neuro General: no focal motor deficits and CN's II-XI intact bilaterally Extrem General: normal to inspection Psych Appearance: grossly normal Affect: normal affect COVID (Procedure Consent) Procedure Criteria Procedure Criteria: Yes Elective The surgeon/proceduralist and patient have discussed in detail the risk of exposure to and/or potential harm posed by the COVID-19 virus with having a surgery/procedure at this time versus the risk of delaying the surgery/procedure. It is not possible to know either the risk of delaying the surgery or procedure or chance of getting an infection with perfect accuracy, but a joint decision was made between the patient and the surgeon/proceduralist to proceed at this time with the scheduled amor andrea/procedure as indicated on the consent form. Assessment and Plan Assessment and Plan (1) ESRD (end stage renal disease) on dialysis: Status: Acute Plan - Mary Jo ALFORD PA-C: Dr. Brooks will plan to perform a left forearm radiocephalic arteriovenous hemodialysis fistula. Procedure details, risks and benefits were reviewed with the patient and his . Dr. Brooks will plan to utilize the ultrasound to inspect the cephalic vein and decide if additional side branches will need to be tied off. Small degree of mobilization will be required. He may continue his low dose aspirin. A orange band was placed on the patient's left wrist prior to him leaving the appointment today. Patient and his have had the opportunity to ask and have questions answered. Patient verbally understands and agrees with the plan. Coding Level of Care Code No Charge Diagnoses ESRD (end stage renal disease) on dialysis N18.6; Z99.2 I have re-examined the patient. There are no clinical changes since date of exam.
[2020-09-01] MEDS: Bupivacaine Mpf 0.5% 30 ML VIAL (10:49)
[2020-09-01] MEDS: Lidocaine 1% (30 ml sdv) 30 ML Vial (10:49)
[2020-09-01] MEDS: Heparin Injection (Vial) 5,000 UNIT/ML VIAL 5000 UNIT (10:50)
--- NOTE | 2020-09-01 11:59 | EX.PCM.DISCH ---
Discharge Instructions Procedure Fistula Diet Discharge Diet: Renal Diet Activity Discharge Activity: May Not Drive (for 2-3 days or while taking narcotic pain medications.), May Shower and May Take a Tub Bath (in 5 days.) Lifting Restrictions: 5 pounds Keep extremity elevated above heart level: - (Keep arm elevated above the heart level for 3 days.) Dressing / Incision Call your doctor if your incision/area has: Continuous Slow Oozing, Sudden Increased Bleeding (apply pressure and call your doctor.), Increased Pain/ Swelling, Increased Redness and Foul Smelling Discharge Call your doctor if you observe: Fever of 101 or Higher Suture Line Care: Avoid Pulling/Pushing and Avoid Pinching/Bending Cleanse incision/area with: Keep Dressing Clean & Dry Additional Dressing/Incision Instructions:: Change or remove dressing in one day. May protect with a gauze bandaid. Follow Up Care Please Follow Up With: Damian Brooks MD When: Call [phone] to make an appointment for suture removal and follow up in 1 week. Test Results: Test results from this visit will be discussed in further detail at your follow-up appointment, if applicable. Discharge Plan Admission Attending Provider: Damian Brooks Primary Care Provider: Davon Lemus Discharge Orders/Prescriptions Prescriptions: No Action berberine-herbal comb no.18 capsule capsule 2 cap PO BID RF: 0 fenofibrate 160 mg tablet 160 mg PO DAILY RF: 0 fluoxetine 60 mg tablet 60 mg PO DAILY RF: 0 amlodipine 5 mg tablet 5 mg PO BID PRN (Reason: high blood pressure) Qty: 180 RF: 3 Hold Instructions: Hypotension on dialysis metoprolol tartrate 25 mg tablet 25 mg PO BID Qty: 180 RF: 3 albuterol sulfate 90 mcg/actuation HFA aerosol inhaler 2 puff inhalation BID RF: 0 nitroglycerin 0.4 MG tablet 0.4 mg sublingual Q5M PRN (Reason: Chest Pain) RF: 0 astaxanthin 4 MG capsule 4 mg PO DAILY RF: 0 allopurinol 100 MG tablet 100 mg PO DAILY RF: 0 insulin aspart U-100 100 UNITS/ML insulin pen 36 units subcut TIDCM RF: 0 coenzyme Q10 400 MG capsule 400 mg PO BID RF: 0 insulin glargine 100 unit/mL (3 mL) insulin pen 50 unit subcut BID RF: 0 aspirin 81 MG tablet 81 mg PO DAILY@0800 RF: 0 pantoprazole 40 MG tablet 40 mg PO DAILY RF: 0 trazodone 50 MG tablet 50 mg PO QHS PRN PRN (Reason: Sleep) RF: 0 metolazone 5 mg tablet 5 mg PO DAILY PRN (Reason: diuretic) RF: 0 furosemide 20 mg tablet 40 mg PO BID PRN (Reason: water) RF: 0 isosorbide mononitrate 30 mg tablet extended release 24 hr 30 mg PO DAILY Qty: 90 RF: 3
--- NOTE | 2020-09-01 12:01 | PCM.OPRPT ---
Problems Associated Problem List Diagnoses (1) ESRD (end stage renal disease) on dialysis: Report of Operation Date of Procedure: 09/01/20 Pre-Operative Diagnosis: Acute and chronic renal failure in need of hemodialysis access Post-Operative Diagnosis: Same Surgery/Procedure Performed:: Left forearm radial to cephalic arteriovenous hemodialysis fistula creation Description of Surgical Findings:: Timeout and informed consent was obtained. 70-year-old gentleman was taken to the operating placed upon the table underwent monitored anesthesia care. Ancef 2 g given intravenously. The left upper extremity was sterilely prepped and draped. 1% lidocaine mixed 50-50 with 0.5% Marcaine was used as a local anesthetic. Ultrasound had been used to map the course of the left forearm cephalic vein. Local was instilled. A total of 6 cc used. An oblique incision was made in the radial aspect of the left wrist and sharp blunt dissection was used to dissect free the cephalic vein. Then sharp blunt dissection was used identify the radial artery. Unfortunately radial artery was rather calcified. The patient received 9000 units of heparin intravenously. The vein was ligated distally with a Hemoclip and then the vein was spatulated. It was irrigated with heparinized saline. The artery was secured proximally and distally with vascular clamps. 11 blade was used to make an arteriotomy which was extended with Pérez scissors. A end-to-side venous to arterial anastomosis was created. This was technically challenging secondary to the moderate size of the cephalic vein and the calcific nature of the artery. Careful anastomosis was performed. At the completion clamps were released. At the toe of the patch a repair suture of 7-0 Prolene was placed. There appeared to be adequate flow. The vein itself somewhat borderline in size. Further dissection was performed to assure good lie of the vein.. Have a good position. I then made a counterincision slightly more proximally in the forearm identifying a side branch and securing that with a 3-0 Vicryl ligature. Both wounds were closed with deep layer of interrupted 3-0 Vicryl and then a running septic of 4-0 Monocryl. Steri-Strips Telfa tape dressings applied. Sponge and instrument and needle counts were reported the surgeon be correct. Blood loss was minimal. The hand was viable at the completion without apparent complication. There was a audible bruit at the completion. Specimen none. Drains none. Blood loss minimal. Damian Brooks M.D., F.A.C.S. Type of Anesthesia: Local MAC Anesthesiologist: Denis Leonardo
[2020-09-01 12:13] VITALS: BP 132/77; BP 170/74; PULSE 69; RESP 16; TEMP 36.9; O2SAT 97
[2020-09-01 12:18] VITALS: BP 139/72; BP 170/74; PULSE 68; RESP 16; O2SAT 98
[2020-09-01 12:23] VITALS: BP 135/72; BP 170/74; PULSE 68; RESP 16; O2SAT 97
[2020-09-01 12:29] VITALS: BP 146/76; BP 170/74; PULSE 69; RESP 16; TEMP 36.9; O2SAT 98
[2020-09-01 12:30] LABS: Bedside Glucose 286 mg/dL (70-110)
[2020-09-01 13:14] VITALS: BP 132/69; BP 170/74; PULSE 65; RESP 16; TEMP 37.3; O2SAT 95
== END 2020-09-01 14:00 | disposition home or self-care (01) ==
LOC: SDC 08:31 → AC 08:32
PROVIDERS: PCP Internal Medicine; Referring Provider Surgery; Visit Provider Surgery
PROC: (CPT 36821; principal; 2020-09-01 10:45)
DX: I12.0 Hypertensive chronic kidney disease with stage 5 chronic kidney disease or end stage renal disease (principal); E11.22 Type 2 diabetes mellitus with diabetic chronic kidney disease; N18.6 End stage renal disease; N17.9 Acute kidney failure, unspecified; J96.11 Chronic respiratory failure with hypoxia; I25.10 Atherosclerotic heart disease of native coronary artery without angina pectoris; J44.9 Chronic obstructive pulmonary disease, unspecified; E78.00 Pure hypercholesterolemia, unspecified; M19.90 Unspecified osteoarthritis, unspecified site; G47.33 Obstructive sleep apnea (adult) (pediatric); K21.9 Gastro-esophageal reflux disease without esophagitis; E66.9 Obesity, unspecified; Z99.2 Dependence on renal dialysis; Z79.82 Long term (current) use of aspirin; Z79.4 Long term (current) use of insulin; Z99.81 Dependence on supplemental oxygen; Z87.891 Personal history of nicotine dependence; Z95.2 Presence of prosthetic heart valve; Z95.5 Presence of coronary angioplasty implant and graft; Z95.1 Presence of aortocoronary bypass graft; Z96.653 Presence of artificial knee joint, bilateral; Z90.49 Acquired absence of other specified parts of digestive tract
CPT/HCPCS: 36821; 36415; 80048; 82962; 85027; J7120; J2405

== ENCOUNTER → 2020-09-26 07:51 | Outpatient (CLI) | payer MEDICARE, OTHER, SELFPAY ==
[2020-09-20 05:37] VITALS: BMI 36.9
[2020-09-26 08:34] LABS: Anion Gap 14 (5-15); BUN 104 mg/dL (7-18); BUN/Creat Ratio 29.1 RATIO (10-20); Calcium,Total 8.8 mg/dL (8.5-10.1); Chloride 109 mmol/L (98-107); Creatinine, Serum 3.58 mg/dL (0.70-1.30); EST Glomerular Filtration Rate 18 mL/min (>60); Est Glom Filt Rate - Afr Amer 22 mL/min (>60); Glucose 127 mg/dL (74-106); Potassium 4.8 mmol/L (3.5-5.1); Sodium Level 140 mmol/L (136-145)
== END ==
PROVIDERS: PCP Internal Medicine; Referring Provider Internal Medicine Nephrology; Visit Provider Internal Medicine Nephrology
DX: N17.9 Acute kidney failure, unspecified (principal)
CPT/HCPCS: 36415; 80048

== ENCOUNTER → 2020-09-30 07:54 | Outpatient (CLI) | payer MEDICARE, OTHER, SELFPAY ==
[2020-09-20 05:37] VITALS: BMI 36.9
[2020-09-30 09:31] LABS: Anion Gap 10 (5-15); BUN 112 mg/dL (7-18); BUN/Creat Ratio 30.3 RATIO (10-20); Calcium,Total 8.2 mg/dL (8.5-10.1); Chloride 113 mmol/L (98-107); EST Glomerular Filtration Rate 17 mL/min (>60); Est Glom Filt Rate - Afr Amer 21 mL/min (>60); Glucose 161 mg/dL (74-106); Potassium 4.6 mmol/L (3.5-5.1); Sodium Level 141 mmol/L (136-145)
== END ==
PROVIDERS: PCP Internal Medicine; Referring Provider Internal Medicine Nephrology; Visit Provider Internal Medicine Nephrology
DX: N18.4 Chronic kidney disease, stage 4 (severe) (principal)
CPT/HCPCS: 36415; 80048

== ENCOUNTER → 2020-10-04 09:48 | Outpatient (CLI) | payer MEDICARE, OTHER, SELFPAY ==
[2020-09-20 05:37] VITALS: BMI 36.9
[2020-10-04 12:02] LABS: Anion Gap 9 (5-15); BUN 83 mg/dL (7-18); BUN/Creat Ratio 29.7 RATIO (10-20); Calcium,Total 8.5 mg/dL (8.5-10.1); Chloride 114 mmol/L (98-107); Creatinine, Serum 2.79 mg/dL (0.70-1.30); EST Glomerular Filtration Rate 24 mL/min (>60); Est Glom Filt Rate - Afr Amer 29 mL/min (>60); Glucose 92 mg/dL (74-106); Potassium 4.3 mmol/L (3.5-5.1); Sodium Level 141 mmol/L (136-145)
== END ==
PROVIDERS: PCP Internal Medicine; Referring Provider Internal Medicine Nephrology; Visit Provider Internal Medicine Nephrology
DX: N18.4 Chronic kidney disease, stage 4 (severe) (principal)
CPT/HCPCS: 36415; 80048

== ENCOUNTER → 2020-11-10 09:51 | Outpatient (CLI) | payer MEDICARE, OTHER, SELFPAY ==
[2020-11-10 08:12] VITALS: BMI 37.0
[2020-11-10 10:11] LABS: Absolute Lymphocyte Count 0.89 X10^3/uL (0.83-4.51); Basophil# 0.04 X10^3/uL; Basophil% 0.4 % (0-1); Eosinophil# 0.25 X10^3/uL; Eosinophils% 2.5 % (0-5); Hematocrit 39.1 % (40-54); Hemoglobin 12.5 g/dL (13.0-16.5); Lymphocyte # 0.89 X10^3/ul (0.83-4.51); Lymphocyte % 8.9 % (19-41); Mean Corpuscular Hgb 29.9 pg (27.0-32.0); Mean Corpuscular Volume 93.5 fL (80-94); Mean Platelet Vol. 9.7 fl (6.2-12.0); Monocyte# 0.57 X10^3/uL; Monocyte% 5.7 % (0-10); NRBC Flagged by Analyzer 0 % (0-5); Neutrophil % 80.2 % (47-70); Platelet Count 151 K/mm3 (150-450); RBC Distribution Width CV 15.5 % (11.6-14.6); RBC Distribution Width SD 52.8 fl (35.1-43.9); Red Blood Count 4.18 M/mm3 (4.6-6.2)
[2020-11-13 14:07] LABS: Alternaria alternata <0.10 kU/L (Class 0); Bermuda Grass 0.12 kU/L (Class 0/I); Bluegrass, Kentucky 0.11 kU/L (Class 0/I); Cat Hair/Dander, Standard <0.10 kU/L (Class 0); D farinae Mite <0.10 kU/L (Class 0); D pteronyssinus <0.10 kU/L (Class 0); Dog Epithelia <0.10 kU/L (Class 0); Elm, American White 0.13 kU/L (Class 0/I); Oak, White 0.13 kU/L (Class 0/I); Plantain, English 0.14 kU/L (Class 0/I); Ragweed, Short/Common 0.12 kU/L (Class 0/I)
[2020-11-13 14:10] LABS: Mouse Urine <0.10 kU/L (Class 0)
[2020-11-15 20:08] LABS: Aspirgillus flavus Negative (Neg:<1:1); Aspirgillus fumigatus Negative (Neg:<1:1); Aspirgillus niger Negative (Neg:<1:1); Cytoplasmic Ab (C-ANCA) <1:20 titer (Neg:<1:20)
[2020-11-16 10:07] LABS: Immunoglobulin E 145 IU/mL (6-495); Perinuclear Ab (P-ANCA) <1:20 titer (Neg:<1:20)
== END ==
PROVIDERS: PCP Internal Medicine; Referring Provider Nurse Practitioner Acute Care; Visit Provider Nurse Practitioner Acute Care
DX: J45.909 Unspecified asthma, uncomplicated (principal)
CPT/HCPCS: 36415; 82785; 85025; 86003; 86256; 86606

== ENCOUNTER → 2020-12-02 12:47 | Outpatient (CLI) | payer MEDICARE, OTHER, SELFPAY ==
[2020-12-02 13:49] LABS: Protein, Urine (Random) 238.8 mg/dL (<11.9); Protein:Creat Ratio 2410 mg/g CRE (0-200)
[2020-12-02 14:01] LABS: Anion Gap 8 (5-15); BUN 81 mg/dL (7-18); BUN/Creat Ratio 24.5 RATIO (10-20); Calcium,Total 8.2 mg/dL (8.5-10.1); Chloride 116 mmol/L (98-107); Creatinine, Serum 3.31 mg/dL (0.70-1.30); EST Glomerular Filtration Rate 20 mL/min (>60); Est Glom Filt Rate - Afr Amer 24 mL/min (>60); Glucose 154 mg/dL (74-106); Potassium 5.1 mmol/L (3.5-5.1); Sodium Level 141 mmol/L (136-145)
== END ==
PROVIDERS: PCP Internal Medicine; Referring Provider Internal Medicine Nephrology; Visit Provider Internal Medicine Nephrology
DX: N17.9 Acute kidney failure, unspecified (principal)
CPT/HCPCS: 36415; 80048; 82570; 84156

== ENCOUNTER 2020-12-17 00:12 | Inpatient (IN) | payer MEDICARE, OTHER, SELFPAY ==
[2020-12-17] VITALS (19 sets, daily range): BP systolic 119–165; BP diastolic 46–85; PULSE 59–81; RESP 18–24; TEMP 36.4–38.1; O2SAT 92–98; BMI 35.1; BMI 33.7
--- NOTE | 2020-12-17 00:40 | EKG12_ITS ---
Test Reason : SOB Blood Pressure : / mmHG Vent. Rate : 078 BPM Atrial Rate : 078 BPM P-R Int : 168 ms QRS Dur : 096 ms QT Int : 396 ms P-R-T Axes : 039 070 036 degrees QTc Int : 451 ms Normal sinus rhythm Nonspecific ST abnormality Abnormal ECG Confirmed by ANTHONY BACK, JACKIE ([id number]), editor publications ROCÍO NORTON ([id number]) on 12/19/2020 11:37:26 AM Referred By: ULISES Confirmed By:JACKIE CRUZ MD
[2020-12-17 00:50] LABS: Absolute Neutrophil Count 7.4 X10^3/uL (2.0-7.7); Basophil# 0.01 X10^3/uL; Basophil% 0.1 % (0-1); Hematocrit 34.1 % (40-54); Hemoglobin 10.6 g/dL (13.0-16.5); Lymphocyte % 3.5 % (19-41); Mean Corp Hgb Conc 31.1 g/dL (32-36); Mean Corpuscular Hgb 29.5 pg (27.0-32.0); Monocyte# 0.85 X10^3/uL; Monocyte% 9.8 % (0-10); NRBC Flagged by Analyzer 0 % (0-5); Neutrophil # 7.41 X10^3/uL (2.7-7.7); Neutrophil % 85.7 % (47-70); POSITIVE DIFFERENTIAL YES; Platelet Count 104 K/mm3 (150-450); RBC Distribution Width CV 14.7 % (11.6-14.6); RBC Distribution Width SD 51.3 fl (35.1-43.9); Red Blood Count 3.59 M/mm3 (4.6-6.2); White Blood Count 8.7 K/mm3 (4.4-11.0)
[2020-12-17 00:51] LABS: Differential Indicated SCAN CRITERIA MET
[2020-12-17] MEDS: Albuterol 2.5 MG/3 ML VIAL.NEB. INHALATION (01:01)
[2020-12-17 01:07] LABS: Lactic Acid 1.9 mmol/L (0.4-1.9)
[2020-12-17 01:08] LABS: ALB/GLOB Ratio 0.6 RATIO (0.9-2.4); AST(SGOT) 32 U/L (15-37); Alanine Aminotransfer ALT/SGPT 45 U/L (16-61); Alkaline Phosphatase 150 U/L (45-117); Anion Gap 7 (5-15); BUN 82 mg/dL (7-18); Calcium,Total 8.4 mg/dL (8.5-10.1); Chloride 113 mmol/L (98-107); EST Glomerular Filtration Rate 16 mL/min (>60); Est Glom Filt Rate - Afr Amer 20 mL/min (>60); Estimated Creatinine Clearance 18.46 ml/min; Globulin 4.7 g/dL (2.2-4.2); Glucose 239 mg/dL (74-106); Protein, Total 7.7 g/dL (6.4-8.2); Sodium Level 141 mmol/L (136-145); Troponin-I HS 35 pg/mL (3.0-78.0)
--- NOTE | 2020-12-17 01:15 | RAD_ITS ---
STUDY: X-RAY CHEST REASON FOR EXAM: Male, 70 years old. Dyspnea TECHNIQUE: 1 view COMPARISON: 08/25/2020 FINDINGS: Please see the impression. RAD/Chest 1 View (Portable) IMPRESSION: Interval development of pulmonary vascular congestion. Persistent cardiomegaly. Patchy bilateral lower lung airspace opacities, likely atelectasis. Aspiration or pneumonia not excluded. No pneumothorax. Status post median sternotomy. Multilevel thoracic spondylosis Electronically Signed: Wilfredo Grijalva MD at 1:30 EDT Tel , Service support ,
[2020-12-17 01:26] LABS: Allen Test Positive; Base Excess -6 mmol/L (-2 to +2); Bicarbonate 18.9 mmol/L (22-26); Blood Gas Specimen Type ART; O2 Delivery Device Cannula; PO2 43 mmHG (75-100); SITE R Radial; SO2 80 % (95-99); Total Carbon Dioxide 20 mmol/L; pCO2 30.5 mmHg (35-45)
[2020-12-17 01:35] LABS: Differential Comment SCANNED
[2020-12-17 04:06] LABS: BNP,B-Type NATRIURETIC PEPTIDE 686.4 pg/mL (0-100)
[2020-12-17] MEDS: Acetaminophen 500 MG Tablet 1000 MG PO (04:08)
[2020-12-17] MEDS: Furosemide 40 MG/4 ML Vial IV ×3 (04:09→17:04)
--- NOTE | 2020-12-17 04:45 | ED.VIS.DYS ---
HPI History of Present Illness Chief Complaint: Shortness of Breath Informant: patient Onset/Context/Timing Onset: Today Context: gradual Timing: Continuous Worsened by: Nothing Relieved by: Oxygen and Albuterol Associated Symptoms cough, fever and subjective; Negative for rhinorrhea, ear pain, sore throat, chills, clear sputum, white sputum, yellow sputum or green sputum Chest Pain: Positive for Continuous and Dull (Mild right-sided dull chest pain) Narrative Narrative: Patient presents with shortness of breath that began today. Patient states it has gradually gotten worse throughout the day today. Patient states nothing makes it worse. Patient states it is better with oxygen and albuterol. Patient admits to a cough but denies any sputum production. Patient also admits to some right-sided chest pain. Patient denies any sore throat or rhinorrhea. Patient admits to subjective fever at home. Patient denies any nausea or vomiting. Patient has a history of congestive heart failure. Patient states he took an extra dose of Lasix at home. PE Risk Factors: Negative for OCP + Smoking + > 35 PFSH PFSH Medical History Aortic valve disease Arthritis Atherosclerotic heart disease of [place] coronary artery without angina pectoris Cardiology follow-up encounter (~08/10/20) COPD (chronic obstructive pulmonary disease) COPD (chronic obstructive pulmonary disease) Coronary atherosclerosis of [place] coronary artery CPAP (continuous positive airway pressure) dependence Diabetes Diabetes mellitus Diastolic dysfunction Essential hypertension Former smoker Gastric reflux GI bleed (~10/2019) History of diverticulitis History of hiatal hernia History of renal dialysis History of renal disease History of stress test (~07/23/18) HTN (hypertension) Hypertension Insulin dependent diabetes mellitus Nonrheumatic aortic (valve) stenosis Normal echocardiogram (~08/18/20) On home oxygen therapy Presence of stent in coronary artery (~08/25/14) Pure hypercholesterolemia Shortness of breath on exertion Skin tear Sleep apnea Type 2 diabetes mellitus Wears dentures Wears hearing aid Home Medications berberine-herbal comb no.18 capsule 2 cap PO BID cap 02/24/18 [History Last Taken 11/10/19] allopurinol 100 mg PO DAILY 02/25/19 [History Last Taken 11/10/19] astaxanthin 4 mg PO DAILY 02/25/19 [History Last Taken 11/10/19] insulin aspart U-100 36 units SUBCUT TIDCM 02/25/19 [History Last Taken 11/10/19] coenzyme Q10 400 mg PO BID 11/10/19 [History Last Taken 11/10/19] insulin glargine 100 unit/mL (3 mL) subcutaneous pen 50 unit SUBCUT BID ml 02/04/20 [History Last Taken Unknown] isosorbide mononitrate 30 mg tablet,extended release 24 hr 30 mg PO DAILY #90 tab 05/16/20 [Rx Last Taken 09/01/20 07:50 30 MG] aspirin 81 mg PO DAILY@0800 06/30/20 [History Last Taken Unknown] pantoprazole 40 mg PO DAILY 06/30/20 [History Last Taken 09/01/20 07:50 40 MG] trazodone 50 mg PO QHS PRN PRN 07/10/20 [History Last Taken Unknown] albuterol sulfate 90 mcg/actuation aerosol inhaler 2 puff INHALATION BID 08/09/20 [History Last Taken Unknown] amlodipine 5 mg tablet 5 mg PO BID PRN #180 tablet 08/10/20 [Rx Last Taken 09/01/20 07:50 5 MG] fluoxetine 60 mg tablet 60 mg PO DAILY 08/10/20 [History Last Taken Unknown] ferrous sulfate 325 mg (65 mg iron) tablet 325 mg PO DAILY 11/03/20 [History Last Taken Unknown] furosemide 20 mg tablet 20 mg PO .COMPLEX #60 tab 11/03/20 [Rx Last Taken Unknown] metoprolol tartrate 25 mg tablet 50 mg PO BID tab 11/03/20 [History Last Taken Unknown] nitroglycerin 0.4 mg sublingual tablet 0.4 mg SUBLINGUAL Q5-15M PRN #25 tab 11/03/20 [Rx Last Taken Unknown] furosemide 40 mg tablet 40 mg PO BID #180 tab 12/07/20 [Rx Last Taken Unknown] Allergy/AdvReac Type Severity Reaction Status Date / Time carvedilol [From Coreg] Allergy Severe vomiting Verified 12/17/20 00:17 valsartan [From Diovan] Allergy Severe Possible Verified 12/17/20 00:17 angioedema, throat swelling sertraline HCl [From Zoloft] Allergy Unknown Verified 12/17/20 00:17 bupropion HCl AdvReac gets mean Verified 12/17/20 00:17 [From Wellbutrin] citalopram AdvReac Other Verified 12/17/20 00:17 gabapentin AdvReac Other Verified 12/17/20 00:17 Family History Father CAD (coronary artery disease) Afib Aortic valve replaced Prostate cancer Mother Cancer Son Lupus Surgical History History of bilateral knee replacement History of cardiac catheterization (~06/24/20) History of carpal tunnel repair History of cholecystectomy History of colonoscopy (~12/2019) History of esophagogastroduodenoscopy (EGD) (~12/2019) History of partial colectomy History of repair of rotator cuff Presence of coronary angioplasty implant and graft S/P CABG x 3 (~07/21/12) S/P PTCA (percutaneous transluminal coronary angioplasty) S/P TAVR (transcatheter aortic valve replacement) Social History (Updated 12/17/20 @ 06:45 by Janice Gustafson) household members: spouse housing: house history of recent travel: No Smoking Status: Former smoker how long ago did patient quit smokin alcohol intake: never substance use type: does not use caffeine: No what type of physical activity do you participate in: none seatbelt use: always do you feel safe at home: Yes ROS ROS ED Constitutional Constitutional ED: Reports fever(s); Denies chills Eyes Eyes: Denies blurry vision or change in vision ENT ENT ED: Denies rhinorrhea or sore throat Cardiovascular Cardiovascular: Reports chest pain; Denies palpitations Respiratory/Chest Respiratory/Chest: Reports cough and dyspnea Gastrointestinal Gastrointestinal: Denies nausea or vomiting Genitourinary Genitourinary ED: Denies dysuria or hematuria Musculoskeletal Musculoskeletal: Denies back pain or neck pain Integumentary Denies abscess or rash Neurologic Neurologic: Denies headache(s) or weakness Allergic/Immunologic Allergic/Immunologic ED: Denies mouth swelling or urticaria EXAM Physical Exam Const Vital Signs: 12/17/20 00:13 12/17/20 00:17 12/17/20 00:59 Temperature 100.2 F H Temperature Source Temporal Pulse Rate 81 79 Respiratory Rate 24 H 24 H Respiratory Effort Short of Breath Accessory Muscle Use Respiratory Pattern Tachypnea Tachypnea Blood Pressure 165/72 H Blood Pressure Mean 103 Pulse Ox 92 Oxygen Delivery Method Nasal Cannula Nasal Cannula Oxygen Flow Rate (L/min) 3 3 12/17/20 01:36 12/17/20 02:11 12/17/20 02:36 Temperature 100.2 F H 100.6 F H Temperature Source Oral Oral Pulse Rate 77 76 Respiratory Rate 19 H 22 H Respiratory Effort Respiratory Pattern Blood Pressure 158/67 H 152/80 H Blood Pressure Mean 97 104 Pulse Ox 94 94 94 Oxygen Delivery Method Nasal Cannula Nasal Cannula Nasal Cannula Oxygen Flow Rate (L/min) 3 3 3 12/17/20 03:36 12/17/20 04:36 Temperature 98.8 F 100.2 F H Temperature Source Oral Oral Pulse Rate 78 75 Respiratory Rate 24 H 20 H Respiratory Effort Respiratory Pattern Blood Pressure 165/66 H 119/85 H Blood Pressure Mean 99 96 Pulse Ox 93 92 Oxygen Delivery Method Nasal Cannula Nasal Cannula Oxygen Flow Rate (L/min) 3 3 Positive well nourished, well developed and obese General Appearance ED: well developed Nutritional Appearance: obese HEENT Reports moist mucous membranes Neck supple and no JVD Resp normal respiratory effort Auscultation: rales bilateral lower Cardio regular rate and regular rhythm GI non-tender and non-distended Auscultation: normoactive bowel sounds Palpation: soft Extremity normal to inspection Extremity Narrative: There is trace edema of the lower extremities bilaterally General Extremety ED: Yes edema General Extremity: edema Neuro oriented x3, CN's II-XII intact bilaterally and no sensory deficits noted Sensorium / Orientation: alert Motor Exam: strength 5/5 throughout Psych mental status grossly normal MDM MDM MDM Narrative Medical decision making narrative: EKG was obtained. On my interpretation, it showed a normal sinus rhythm with a rate of 78. IN interval, QRS interval, and QTc intervals were all normal. [place] was normal. There are nonspecific ST-T wave changes in leads II, and III. CBC shows a mild anemia with a hemoglobin of 10.6 hematocrit 34.1. Comprehensive metabolic profile showed a creatinine of 3.9 and a BUN of 82. These are consistent with prior results. Lactate was normal at 1.9. High-sensitivity troponin was normal at 35. BNP was elevated at 686.4. Portable chest x-ray was obtained. There is 1 view. On my interpretation, there is pulmonary vascular congestion. There is cardiomegaly. Bony thorax is normal. Radiologist also interpreted the x-ray and noted bilateral lower lobe patchy opacities, likely atelectasis. However, aspiration or pneumonia cannot be excluded. Arterial blood gas on 3 L nasal cannula shows pH of 7.40, PCO2 of 30.5, PO2 of 43.0, bicarb of 18.9, and O2 sat of 79.5. Covid 19 rapid antigen was obtained and was positive. Patient was given a dose of Tylenol here. Patient was given albuterol aerosol here. Patient was given a dose of Lasix. Case was discussed with the hospitalist. He will admit the patient to his service. Patient understood and was agreeable with the plan. All questions were answered. Lab Data Attestation: I reviewed the patient's lab results. Labs: Laboratory Results - last 24 hr 12/17/20 12/17/20 12/17/20 00:36 00:36 00:36 WBC 8.7 RBC 3.59 L Hgb 10.6 L Hct 34.1 L MCV 95.0 H MCH 29.5 MCHC 31.1 L RDW Std Deviation 51.3 H RDW Coeff of Judi 14.7 H Plt Count 104 L MPV 10.0 Immature Gran % (Auto) 0.900 Neut % (Auto) 85.7 H Lymph % (Auto) 3.5 L Blair % (Auto) 9.8 Eos % (Auto) 0.0 Baso % (Auto) 0.1 Absolute Neuts (auto) 7.4 Absolute Lymphs (auto) 0.30 L Nucleated RBC % 0 Differential Comment SCANNED Sodium 141 Potassium 5.0 Chloride 113 H Carbon Dioxide 21.0 Anion Gap 7 BUN 82 H Creatinine 3.90 H Estim Creat Clear Calc 18.46 Est GFR (MDRD) Af Amer 20 L Est GFR (MDRD) Non-Af 16 L BUN/Creatinine Ratio 21.0 H Glucose 239 H Lactic Acid 1.9 Calcium 8.4 L Total Bilirubin 0.90 AST 32 ALT 45 Alkaline Phosphatase 150 H Troponin I High Sens 35 B-Natriuretic Peptide Total Protein 7.7 Albumin 3.0 L Globulin 4.7 H Albumin/Globulin Ratio 0.6 L 12/17/20 00:36 WBC RBC Hgb Hct MCV MCH MCHC RDW Std Deviation RDW Coeff of Judi Plt Count MPV Immature Gran % (Auto) Neut % (Auto) Lymph % (Auto) Blair % (Auto) Eos % (Auto) Baso % (Auto) Absolute Neuts (auto) Absolute Lymphs (auto) Nucleated RBC % Differential Comment Sodium Potassium Chloride Carbon Dioxide Anion Gap BUN Creatinine Estim Creat Clear Calc Est GFR (MDRD) Af Amer Est GFR (MDRD) Non-Af BUN/Creatinine Ratio Glucose Lactic Acid Calcium Total Bilirubin AST ALT Alkaline Phosphatase Troponin I High Sens B-Natriuretic Peptide 686.4 H Total Protein Albumin Globulin Albumin/Globulin Ratio ABG Data ABG results: ABG 12/17/20 01:19 Specimen Type ART Sample Site R Radial pH 7.40 Bicarbonate Actual 18.9 L Total CO2 20 Base Excess -6 L O2 Saturation 80 L ABG pCO2 30.5 L ABG pO2 43 L Martell Test Positive O2 Delivery Device Cannula Liter Flow 3.0 Radiography Chest X-Ray - ED: 1 View, Read by ED Physician, Read by Radiologist and CHF Diagnostic Testing: Radiology Impression Chest X-Ray 12/17/20 01:15 IMPRESSION: Interval development of pulmonary vascular congestion. Persistent cardiomegaly. Patchy bilateral lower lung airspace opacities, likely atelectasis. Aspiration or pneumonia not excluded. No pneumothorax. Status post median sternotomy. Multilevel thoracic spondylosis Electronically Signed: Wilfredo Grijalva MD at 1:30 EDT Tel , Service support , EKG Initial EKG: Attestation: I personally reviewed and interpreted this EKG as follows: Interpretation: Sinus Rhythm (78), No Acute Injury Pattern and Non-Specific ST Changes Prior EKG tracings: available for review Prior: Unchanged (07/13/2020) Discharge Plan Dx/Rx/DC Orders Clinical Impression: Congestive heart failure, Hypoxemia, COVID-19 Disposition Disposition: Acute Care Hospital [facility] Discharge Date/Time: 12/17/20 05:54
[2020-12-17] MEDS: dexAMETHasone 4 MG/ML Vial 6 MG IV (05:22)
--- NOTE | 2020-12-17 05:22 | HP.PCM.HOS_ITS ---
HPI - General General Date of Admission: 12/17/20 Date of Service: 12/17/20 Chief Complaint: Shortness of breath HPI Narrative KYLE WOMACK, is a 70 M with a significant history of CAD status post CABG and stents; COPD on 3 L home oxygen; diabetes mellitus; and end-stage renal disease who presents to the emergency department with progressively worsening shortness of breath. His shortness of breath has been going on for a little wh ile. He denies fever. He reports chills. He reports orthopnea. He denies anorexia. Patient reports swelling of left ankle. Comprehensive review of system is difficult to obtain since patient is a poor historian. Reportedly when paramedics found patient his oxygen saturation on his baseline nasal cannula of 3 L was in the 60s. Patient was given a DuoNeb by paramedics. Patient does not the answer the question of whether he has been vaccinated for COVID-19 virus or not. He reported that he was on dialysis and he took himself off dialysis. [facility] Medical History Aortic valve disease Arthritis Atherosclerotic heart disease of [place] coronary artery without angina pectoris Cardiology follow-up encounter (~08/10/20) COPD (chronic obstructive pulmonary disease) COPD (chronic obstructive pulmonary disease) Coronary atherosclerosis of [place] coronary artery CPAP (continuous positive airway pressure) dependence Diabetes Diabetes mellitus Diastolic dysfunction Essential hypertension Former smoker Gastric reflux GI bleed (~10/2019) History of diverticulitis History of hiatal hernia History of renal dialysis History of renal disease History of stress test (~07/23/18) HTN (hypertension) Hypertension Insulin dependent diabetes mellitus Nonrheumatic aortic (valve) stenosis Normal echocardiogram (~08/18/20) On home oxygen therapy Presence of stent in coronary artery (~08/25/14) Pure hypercholesterolemia Shortness of breath on exertion Skin tear Sleep apnea Type 2 diabetes mellitus Wears dentures Wears hearing aid Home Medications berberine-herbal comb no.18 capsule 2 cap PO BID cap 02/24/18 [History Last Taken 11/10/19] allopurinol 100 mg PO DAILY 02/25/19 [History Last Taken 11/10/19] astaxanthin 4 mg PO DAILY 02/25/19 [History Last Taken 11/10/19] insulin aspart U-100 36 units SUBCUT TIDCM 02/25/19 [History Last Taken 11/10/19] coenzyme Q10 400 mg PO BID 11/10/19 [History Last Taken 11/10/19] insulin glargine 100 unit/mL (3 mL) subcutaneous pen 50 unit SUBCUT BID ml 02/04/20 [History Last Taken Unknown] isosorbide mononitrate 30 mg tablet,extended release 24 hr 30 mg PO DAILY #90 tab 05/16/20 [Rx Last Taken 09/01/20 07:50 30 MG] aspirin 81 mg PO DAILY@0800 06/30/20 [History Last Taken Unknown] pantoprazole 40 mg PO DAILY 06/30/20 [History Last Taken 09/01/20 07:50 40 MG] trazodone 50 mg PO QHS PRN PRN 07/10/20 [History Last Taken Unknown] albuterol sulfate 90 mcg/actuation aerosol inhaler 2 puff INHALATION BID 08/09/20 [History Last Taken Unknown] amlodipine 5 mg tablet 5 mg PO BID PRN #180 tablet 08/10/20 [Rx Last Taken 09/01/20 07:50 5 MG] fluoxetine 60 mg tablet 60 mg PO DAILY 08/10/20 [History Last Taken Unknown] ferrous sulfate 325 mg (65 mg iron) tablet 325 mg PO DAILY 11/03/20 [History L ast Taken Unknown] furosemide 20 mg tablet 20 mg PO .COMPLEX #60 tab 11/03/20 [Rx Last Taken Unknown] metoprolol tartrate 25 mg tablet 50 mg PO BID tab 11/03/20 [History Last Taken Unknown] nitroglycerin 0.4 mg sublingual tablet 0.4 mg SUBLINGUAL Q5-15M PRN #25 tab 11/03/20 [Rx Last Taken Unknown] furosemide 40 mg tablet 40 mg PO BID #180 tab 12/07/20 [Rx Last Taken Unknown] Allergy/AdvReac Type Severity Reaction Status Date / Time carvedilol [From Coreg] Allergy Severe vomiting Verified 12/17/20 00:17 valsartan [From Diovan] Allergy Severe Possible Verified 12/17/20 00:17 angioedema, throat swelling sertraline HCl [From Zoloft] Allergy Unknown Verified 12/17/20 00:17 bupropion HCl AdvReac gets mean Verified 12/17/20 00:17 [From Wellbutrin] citalopram AdvReac Other Verified 12/17/20 00:17 gabapentin AdvReac Other Verified 12/17/20 00:17 Family History Father CAD (coronary artery disease) Afib Aortic valve replaced Prostate cancer Mother Cancer Son Lupus Surgical History History of bilateral knee replacement History of cardiac catheterization (~06/24/20) History of carpal tunnel repair History of cholecystectomy History of colonoscopy (~12/2019) History of esophagogastroduodenoscopy (EGD) (~12/2019) History of partial colectomy History of repair of rotator cuff Presence of coronary angioplasty implant and graft S/P CABG x 3 (~07/21/12) S/P PTCA (percutaneous transluminal coronary angioplasty) S/P TAVR (transcatheter aortic valve replacement) Social History Smoking Status: Former smoker how long ago did patient quit smokin alcohol intake: never substance use type: does not use caffeine: No what type of physical activity do you participate in: none seatbelt use: always do you feel safe at home: Yes ROS Review of Systems ROS Unobtainable: other Details: Poor historian. Vital Signs Vital Signs Vital Signs: 12/17/20 00:13 12/17/20 00:17 12/17/20 00:59 Temperature 100.2 F H Temperature Source Temporal Pulse Rate 81 79 Respiratory Rate 24 H 24 H Respiratory Effort Short of Breath Accessory Muscle Use Respiratory Pattern Tachypnea Tachypnea Blood Pressure 165/72 H Blood Pressure Mean 103 Pulse Ox 92 Oxygen Delivery Method Nasal Cannula Nasal Cannula Oxygen Flow Rate (L/min) 3 3 12/17/20 01:36 12/17/20 02:11 12/17/20 02:36 Temperature 100.2 F H 100.6 F H Temperature Source Oral Oral Pulse Rate 77 76 Respiratory Rate 19 H 22 H Respiratory Effort Respiratory Pattern Blood Pressure 158/67 H 152/80 H Blood Pressure Mean 97 104 Pulse Ox 94 94 94 Oxygen Delivery Method Nasal Cannula Nasal Cannula Nasal Cannula Oxygen Flow Rate (L/min) 3 3 3 12/17/20 03:36 12/17/20 04:36 Temperature 98.8 F 100.2 F H Temperature Source Oral Oral Pulse Rate 78 75 Respiratory Rate 24 H 20 H Respiratory Effort Respiratory Pattern Blood Pressure 165/66 H 119/85 H Blood Pressure Mean 99 96 Pulse Ox 93 92 Oxygen Delivery Method Nasal Cannula Nasal Cannula Oxygen Flow Rate (L/min) 3 3 Weight Weight: 111 kg Body Mass Index (BMI) 35.1 Physical Exam Narrative Physical exam: General: Well-nourished, well-developed. Head: Normocephalic, atraumatic, no tenderness Eyes: PERRLA, EOMI ENT, no trauma, moist mucous membranes, no rhinorrhea Neck: Nontender, full range of motion, no spinal tenderness, deformities, step- off CVS: Regular rate and rhythm. S1-S2 present. No murmur, gallop or rub. Respiratory : Tachypnea; rhonchi; chest wall nontender Abdomen: Soft, nontender, nondistended, normal bowel sounds, no masses : Deferred Back: Nontender, no CVA tenderness, no midline spinal tenderness, deformities, step-offs Extremities: Nontender full range of motion, no trauma Skin: Normal color, no trauma, abrasions Neuro: Alert, oriented, cranial nerves II through XII grossly intact; except the patient is hard of hearing. Psychiatry: Normal mood. Normal affect. Not depressed. Not anxious. Results Lab / Micro Data Result Diagrams: 12/17/20 00:36 12/17/20 00:36 Labs: Laboratory Results - last 24 hr 12/17/20 00:36: WBC 8.7, RBC 3.59 L, Hgb 10.6 L, Hct 34.1 L, MCV 95.0 H, MCH 29.5, MCHC 31.1 L, RDW Std Deviation 51.3 H, RDW Coeff of Judi 14.7 H, Plt Count 104 L, MPV 10.0, Immature Gran % (Auto) 0.900, Neut % (Auto) 85.7 H, Lymph % (Auto) 3.5 L, [place] % (Auto) 9.8, Eos % (Auto) 0.0, Baso % (Auto) 0.1, Absolute Neuts (auto) 7.4, Absolute Lymphs (auto) 0.30 L, Nucleated RBC % 0, Differential Comment SCANNED 12/17/20 00:36: Sodium 141, Potassium 5.0, Chloride 113 H, Carbon Dioxide 21.0, Anion Gap 7, BUN 82 H, Creatinine 3.90 H, Estim Creat Clear Calc 18.46, Est GFR (MDRD) Af Amer 20 L, Est GFR (MDRD) Non-Af 16 L, BUN/Creatinine Ratio 21.0 H, Glucose 239 H, Calcium 8.4 L, Total Bilirubin 0.90, AST 32, ALT 45, Alkaline Phosphatase 150 H, Troponin I High Sens 35, Total Protein 7.7, Albumin 3.0 L, Globulin 4.7 H, Albumin/Globulin Ratio 0.6 L 12/17/20 00:36: Lactic Acid 1.9 12/17/20 00:36: B-Natriuretic Peptide 686.4 H Micro: Microbiology 12/17/20 00:59 Nasal Secretion SARS-CoV-2 Antigen (Rapid) - Final SARS-CoV-2 (COVID 19) ABG Data ABG results: ABG 12/17/20 01:19 Specimen Type ART Sample Site R Radial pH 7.40 Bicarbonate Actual 18.9 L Total CO2 20 Base Excess -6 L O2 Saturation 80 L ABG pCO2 30.5 L ABG pO2 43 L Martell Test Positive O2 Delivery Device Cannula Liter Flow 3.0 Radiology Impression Chest X-Ray 12/17/20 01:15 IMPRESSION: Interval development of pulmonary vascular congestion. Persistent cardiomegaly. Patchy bilateral lower lung airspace opacities, likely atelectasis. Aspiration or pneumonia not excluded. No pneumothorax. Status post median sternotomy. Multilevel thoracic spondylosis Electronically Signed: Wilfredo Grijalva MD at 1:30 EDT Tel , Service support , Assessment & Plan Assessment/Plan (1) Congestive heart failure: QUALIFIERS: Heart failure type: diastolic Heart failure chronicity: acute Qualified Code(s): I50.31 - Acute diastolic (congestive) heart failure (2) Respiratory failure with hypoxia: QUALIFIERS: Chronicity: acute on chronic Qualified Code(s): J96.21 - Acute and chronic respiratory failure with hypoxia (3) COVID-19: (4) COPD exacerbation: PLAN: Acute hypoxemic respiratory failure ABG with PO2 of 43. Reportedly when paramedics found patient patient was saturation was in the 60s on the 3 L nasal cannula for which DuoNeb was given. Multifactorial from heart failure with preserved ejection fraction; severe acute respiratory distress from COVID-19; COPD exacerbation Treatment as below. Supplement oxygen to keep oxygen saturation more than 90%. Severe acute respiratory syndrome secondary COVID-19/COPD Rapid antigen at the emergency department was positive. T-max of 100.6 Fahrenheit at the emergency department. Actual chest x-ray was independently interpreted and I agree with radiologist interpretation as above. Discussed emergent department doctor to give Decadron. Decadron p.o. ordered for inpatient. Albuterol as needed ordered. Tylenol for fever. Acute Exacerbation of heart failure with preserved ejection fraction Review of records show that echocardiogram was done on 07/09/2020. Results of echocardiogram on 07/09/2020: Estimated ejection fraction 60%. Severe mitral annular calcification. Mild mitral valve insufficiency. Trivial tricuspid valve insufficiency. Stable appearing bioprosthetic aortic valve apparatus. Trivial pulmonic valve insufficiency. Left atrium moderately enlarged. Right ventricular systolic pressure was estimated to be [address] on monitored bed on a progressive care unit. Weight on admission to the floor; and then daily Fluid restriction of 1500 mls daily Renal, cardiac and calorie restriction of 1800 kcal/day diet ordered. End-stage renal disease Patient report that he took himself of dialysis. Creatinine stable. Trend BMP. Diabetes mellitus Patient with hyperglycemia on presentation Accu-Chek QA [facility] with correction scale insulin ordered. DVT prophylaxis: Subcutaneous Lovenox ordered. Charges/Coding Visit Charges Inpatient E&M: 83402 Init Hosp L3
[2020-12-17 05:43] LABS: Troponin-I HS 43 pg/mL (3.0-78.0)
--- NOTE | 2020-12-17 06:45 | PCS.PANDOC ---
PANDEMIC DOCUMENTATION INITIATED: Date: 11/14/2020 Time: 190
[2020-12-17] MEDS: 0.9% Saline Lock 10 ML Syringe IV ×2 (10:29→17:04)
[2020-12-17] MEDS: Insulin Lispro 100 UNIT/ML INSULN.PEN SC ×4 (10:33→20:49)
[2020-12-17] MEDS: Enoxaparin 30 MG/0.3 ML Syringe SC (10:34)
[2020-12-17 10:46] LABS: Bedside Glucose 242 mg/dL (70-110)
--- NOTE | 2020-12-17 11:05 | CASEMGMT ---
RN CM attempted to call patient in room to complete RN CM assessment. No answer. CM will attempt to complete assessment at later time.
[2020-12-17 13:06] LABS: Bedside Glucose 314 mg/dL (70-110)
[2020-12-17 17:16] LABS: Bedside Glucose 302 mg/dL (70-110)
--- NOTE | 2020-12-17 18:50 | PCM.HOSP.N ---
Hospitalist Note Patient was seen and examined briefly today, he was admitted early this morning with COVID-19 pneumonia and respiratory failure. Patient is currently on 3 L via nasal cannula. Due to the patient's stage IV chronic kidney disease, he does not appear to be a candidate for administration of remdesivir, at this time we will continue to administer dexamethasone and IV Lasix.
[2020-12-17] MEDS: Metoprolol Tartrate 50 MG Tablet PO (20:51)
[2020-12-18] VITALS (16 sets, daily range): BP systolic 130–176; BP diastolic 55–65; PULSE 50–84; RESP 14–20; TEMP 36.5–36.7; O2SAT 85–94
[2020-12-18 00:21] LABS: Bedside Glucose 278 mg/dL (70-110)
[2020-12-18] MEDS: Acetaminophen 325 MG Tablet 650 MG PO (01:52)
[2020-12-18 07:14] LABS: Absolute Neutrophil Count 7.6 X10^3/uL (2.0-7.7); Basophil# 0.01 X10^3/uL; Basophil% 0.1 % (0-1); Hematocrit 35.6 % (40-54); Hemoglobin 11.1 g/dL (13.0-16.5); Lymphocyte % 4.7 % (19-41); Mean Corp Hgb Conc 31.2 g/dL (32-36); Mean Corpuscular Hgb 29.4 pg (27.0-32.0); Mean Corpuscular Volume 94.4 fL (80-94); Mean Platelet Vol. 10.3 fl (6.2-12.0); Monocyte# 0.49 X10^3/uL; Monocyte% 5.8 % (0-10); NRBC Flagged by Analyzer 0 % (0-5); Neutrophil # 7.55 X10^3/uL (2.7-7.7); Neutrophil % 88.7 % (47-70); POSITIVE DIFFERENTIAL YES; Platelet Count 121 K/mm3 (150-450); RBC Distribution Width CV 14.5 % (11.6-14.6); RBC Distribution Width SD 50.8 fl (35.1-43.9); Red Blood Count 3.77 M/mm3 (4.6-6.2); White Blood Count 8.5 K/mm3 (4.4-11.0)
[2020-12-18 07:16] LABS: Differential Indicated SCAN CRITERIA MET
[2020-12-18 07:54] LABS: ALB/GLOB Ratio 0.5 RATIO (0.9-2.4); AST(SGOT) 36 U/L (15-37); Alanine Aminotransfer ALT/SGPT 39 U/L (16-61); Albumin, Serum 2.5 g/dL (3.2-5.0); Alkaline Phosphatase 139 U/L (45-117); Anion Gap 10 (5-15); BUN 97 mg/dL (7-18); BUN/Creat Ratio 26.2 RATIO (10-20); Calcium,Total 8.2 mg/dL (8.5-10.1); Chloride 113 mmol/L (98-107); EST Glomerular Filtration Rate 17 mL/min (>60); Est Glom Filt Rate - Afr Amer 21 mL/min (>60); Estimated Creatinine Clearance 19.46 ml/min; Globulin 4.6 g/dL (2.2-4.2); Glucose 120 mg/dL (74-106); Potassium 4.5 mmol/L (3.5-5.1); Protein, Total 7.1 g/dL (6.4-8.2); Sodium Level 143 mmol/L (136-145)
[2020-12-18] MEDS: Pantoprazole Sodium 40 MG Tablet PO (09:19)
[2020-12-18] MEDS: Ondansetron 4 MG/2 ML Vial IV (09:19)
[2020-12-18] MEDS: FLUoxetine 20 MG Capsule 60 MG PO (09:19)
[2020-12-18] MEDS: Aspirin E.C. 81 MG Tablet PO (09:19)
[2020-12-18] MEDS: Isosorbide Mononitrate 30 MG Tablet PO (09:19)
[2020-12-18] MEDS: 0.9% Saline Lock 10 ML Syringe IV ×3 (09:19→16:37)
[2020-12-18] MEDS: Furosemide 40 MG/4 ML Vial IV ×2 (09:20→16:37)
[2020-12-18] MEDS: Metoprolol Tartrate 50 MG Tablet PO ×2 (09:25→23:32)
[2020-12-18] MEDS: dexAMETHasone 2 MG TABLET 6 MG PO (09:25)
[2020-12-18] MEDS: Enoxaparin 30 MG/0.3 ML Syringe SC (09:26)
[2020-12-18 09:51] LABS: Bedside Glucose 121 mg/dL (70-110)
--- NOTE | 2020-12-18 11:21 | CPS ---
pt was increased to 12 lpm. Saturation to 91%. Pt denies any increased work of breathing. Pt's nurse aware of change. HR 80 RR 18. Pt is alert and responds to orientation.
[2020-12-18 12:11] LABS: Bedside Glucose 127 mg/dL (70-110)
[2020-12-18] MEDS: Furosemide 20 MG/2 ML VIAL IV (12:54)
[2020-12-18] MEDS: Insulin Lispro 100 UNIT/ML INSULN.PEN SC ×2 (16:41→23:27)
[2020-12-18 16:50] LABS: Bedside Glucose 197 mg/dL (70-110)
--- NOTE | 2020-12-18 18:25 | PCM.PN.HOSP ---
Subjective Subjective Patient was seen and examined today, at the time of this dictation, he is on oxygen at 12 L nasal cannula. Patient appeared mildly confused at this examiner, he stated to me that he did not know I was in the hospital and I reminded him that he was positive for COVID-19. Patient wanted to know when he could be released to go home, I explained to him that he was on high flow oxygen and he was not able to be discharged at this time. Patient states he does use oxygen at home, he could not tell me what his settings were-it appears from his pulmonary medicine notes that he uses 2 L/min via nasal cannula. Objective Data Objective Data Vital Signs: Vital Signs Temp Pulse Resp BP Pulse Ox 98.0 F 64 18 130/55 H 92 12/18/20 14:05 12/18/20 15:00 12/18/20 14:05 12/18/20 14:05 12/18/20 14:05 Oxygen Flow Rate (L/min) 12 Oxygen Delivery Method Nasal Cannula Weight: 106.3 kg Body Mass Index (BMI) 33.7 Intake & Output: Intake and Output for Last 24 Hours 12/16/20 12/17/20 12/18/20 23:59 23:59 23:59 Intake Total 700 / 700 420 / 420 Output Total 2090 / 2090 700 / 700 Balance -1390 / -1390 -280 / -280 Lab / Micro Data Result Diagrams: 12/18/20 06:40 12/18/20 06:40 Labs: Laboratory Results - last 24 hr 12/17/20 20:43: POC Glucose 278 H 12/18/20 06:40: WBC 8.5, RBC 3.77 L, Hgb 11.1 L, Hct 35.6 L, MCV 94.4 H, MCH 29.4, MCHC 31.2 L, RDW Std Deviation 50.8 H, RDW Coeff of Judi 14.5, Plt Count 121 L, MPV 10.3, Immature Gran % (Auto) 0.700, Neut % (Auto) 88.7 H, Lymph % (Auto) 4.7 L, [place] % (Auto) 5.8, Eos % (Auto) 0.0, Baso % (Auto) 0.1, Absolute Neuts (auto) 7.6, Absolute Lymphs (auto) 0.40 L, Nucleated RBC % 0 12/18/20 06:40: Sodium 143, Potassium 4.5, Chloride 113 H, Carbon Dioxide 20.0 L, Anion Gap 10, BUN 97 H, Creatinine 3.70 H, Estim Creat Clear Calc 19.46, Est GFR (MDRD) Af Amer 21 L, Est GFR (MDRD) Non-Af 17 L, BUN/Creatinine Ratio 26.2 H, Glucose 120 H, Calcium 8.2 L, Total Bilirubin 0.90, AST 36, ALT 39, Alkaline Phosphatase 139 H, Total Protein 7.1, Albumin 2.5 L, Globulin 4.6 H, Albumin/Globulin Ratio 0.5 L 12/18/20 09:07: POC Glucose 121 H 12/18/20 11:27: POC Glucose 127 H 12/18/20 16:36: POC Glucose 197 H Micro: Microbiology 12/17/20 00:59 Nasal Secretion SARS-CoV-2 Antigen (Rapid) - Final SARS-CoV-2 (COVID 19) Physical Exam Const alert, oriented x3, no apparent distress and healthy appearing Constitutional Narrative: Patient exhibits mild confusion at the time of my examination General Appearance: cooperative, well kempt and well developed Orientation / Consciousness: awake, oriented to person, oriented to place and oriented to time HEENT normocephalic, head/scalp atraumatic and moist oral mucous membranes Head and Scalp: normocephalic Eyes PERRL, EOMs intact bilaterally and conjunctivae normal Neck nuchal rigidity, supple, no JVD, thyroid normal and no carotid bruits General: trachea midline Resp normal respiratory effort, no retractions, no use of accessory muscles and clear to auscultation bilaterally Auscultation: Negative for rales, rhonchi or wheezes Cardio regular rate, regular rhythm, S1 normal heart sound, S2 normal heart sound, no murmurs, no rub and no gallops GI normal to inspection, nondistended, normoactive bowel sounds, soft to palpation, non-tender and non-distended Extremity no clubbing, cyanosis or edema Skin no rashes or lesions noted General Skin Exam: no breakdown Neuro oriented x3, CN's II-XII intact bilaterally, no focal motor deficits and no sensory deficits noted Sensorium / Orientation: awake and alert Speech: speech normal Psych thought process normal and affect normal Assessment & Plan Assessment/Plan (1) COVID-19: PLAN: 1. COVID-19 pneumonia-patient will continue present treatment #2 acute on chronic diastolic congestive heart failure-patient will remain on IV Lasix #3 acute on chronic hypoxic respiratory failure-pulse ox will be monitored #4 chronic kidney disease stage IV #5 exacerbation of COPD-continue present treatment #6 type 2 diabetes Charges/Coding Visit Charges Inpatient E&M: 07515 Subs Hosp L2
[2020-12-18] MEDS: Ipratropium/Albuterol Sulfate 3 ML AMPUL.NEB INHALATION (20:44)
[2020-12-18 23:46] LABS: Bedside Glucose 275 mg/dL (70-110)
[2020-12-19] VITALS (20 sets, daily range): BP systolic 116–134; BP diastolic 67–70; PULSE 50–65; RESP 14–28; TEMP 36.1–36.7; O2SAT 88–95
[2020-12-19 06:45] LABS: Anion Gap 10 (5-15); BUN 120 mg/dL (7-18); BUN/Creat Ratio 27.9 RATIO (10-20); Calcium,Total 7.9 mg/dL (8.5-10.1); Chloride 109 mmol/L (98-107); EST Glomerular Filtration Rate 15 mL/min (>60); Est Glom Filt Rate - Afr Amer 18 mL/min (>60); Estimated Creatinine Clearance 16.74 ml/min; Glucose 273 mg/dL (74-106); Potassium 4.9 mmol/L (3.5-5.1); Sodium Level 140 mmol/L (136-145)
[2020-12-19] MEDS: Ipratropium/Albuterol Sulfate 3 ML AMPUL.NEB INHALATION ×2 (07:37→20:05)
[2020-12-19 07:46] LABS: Bedside Glucose 232 mg/dL (70-110)
[2020-12-19] MEDS: Insulin Lispro 100 UNIT/ML INSULN.PEN SC ×4 (09:42→22:34)
[2020-12-19] MEDS: Enoxaparin 30 MG/0.3 ML Syringe SC (09:44)
[2020-12-19] MEDS: FLUoxetine 20 MG Capsule 60 MG PO (09:44)
[2020-12-19] MEDS: Furosemide 40 MG/4 ML Vial IV ×2 (09:44→17:00)
[2020-12-19] MEDS: dexAMETHasone 2 MG TABLET 6 MG PO (09:44)
[2020-12-19] MEDS: 0.9% Saline Lock 10 ML Syringe IV ×4 (09:44→22:42)
[2020-12-19] MEDS: Isosorbide Mononitrate 30 MG Tablet PO (09:44)
[2020-12-19] MEDS: Aspirin E.C. 81 MG Tablet PO (09:45)
[2020-12-19] MEDS: Pantoprazole Sodium 40 MG Tablet PO (09:45)
[2020-12-19] MEDS: Metoprolol Tartrate 50 MG Tablet PO ×2 (09:45→22:37)
[2020-12-19 11:45] LABS: Bedside Glucose 240 mg/dL (70-110)
--- NOTE | 2020-12-19 12:41 | CASEMGMT ---
MARCO A ASTORGA Assessment: Face to Face with patient for initial transition planning/care coordination assessment. MARCO A ASTORGA introduced self and role at [facility], voices understanding. Care providers, pharmacy, and demographics verified. PCP: Allan Specialists: Elia [facility], and [facility] Preferred Pharmacy: [facility] Insurance: [facility] A/B, [facility] Prescription Benefit: Yes Living Will/HPOA: yes/yes: Diana LNOK: Diana Living Arrangements: Pt lives with his in a two story home with a first floor bed and bathroom (only one bathroom in the home) with 3 steps to enter. He would be able to isolate in his room but would not have a separate bathroom. Pt's assisted him when needed at home with ADLs. This RN CM spoke with pt's at his direction and she reports pt to have been total care after his TAVR but states he has progressed to being mostly independent with occasional assistance from her. Pt's states she has not been feeling unwell and that she was tested yesterday for COVID. She has not yet received the results. Pt's also reports having had surgery on two fingers of her dominant hand last week which is limiting her ability to perform and assist. Pt states his son Rafael would be able to assist if needed. Transportation: pt's primarily drives DME/HHC/SNF: Pt and his state they have DME including shower chair, cane, walker, rollator, and mobility scooter w/hydraulic lift on their truck to transport. Pt states he has been at [facility] in the past and denies any previous HHC. Pt states he would not want HHC as his dogs are protective. Discussed previous referral to Palliative Care which pt deferred to his . Pt's states they did talk about it but felt pt was doing better after his TAVR and did not think he needed their services. Discussed previous hemodialysis needs. Pt states he currently is not receiving HD and states God has gotten me off dialysis twice. Pt reports to not have been out of bed yet. Noted pt to be on bipap at time of assessment. Pt reiterated that his is to make all decisions. Plan: To be determined. Will continue to follow and assist as needs are identified. Petar Sykes RN CM
--- NOTE | 2020-12-19 15:08 | CHAPLAIN ---
Type of Pastoral Visit ___ Initial Visit ___ Follow-up Visit ___ On-call Visit ___ General Patient Visit ___ Spiritual Assessment ___ Family Conference ___ Bereavement ___ Rapid Response ___ Code Blue _x__ Other (describe below) Pastoral Care Referral From _x__ Patient ___ Family ___ Nurse ___ Physician ___ Windmill Mechanic ___ System Integration Engineer ___ Other (describe below) Sacrament/Intervention _x__ Active listening ___ Anointing ___ Mosque ___ Bereavement ___ Communion _x__ Lilli exploration ___ _x__ Life review _x__ Prayer ___ Reconciliation ___ Sacrament of Sick ___ Supportive presence ___ Wedding ___ Other (describe below) Pastoral Comments phone call into isolation room; pt answers the phone and is very happy to talk and does so extensively; life review and lilli discussion
--- NOTE | 2020-12-19 16:19 | CON.PCM.ID_ITS ---
Assessment & Plan Assessment/Plan (1) Respiratory failure with hypoxia: QUALIFIERS: Chronicity: acute on chronic Qualified Code(s): J96.21 - Acute and chronic respiratory failure with hypoxia (2) COVID-19: PLAN: Sx started around 12/09, vaccinated. new dx covid, recommend she call PCP re: monoclonal Ab therapy. Agree with holding off on remdesivir given timing and CKD. Not candidate for baricitinib due to GFR. Isolated for 20 days until 12/29. Will follow, thank you, d/w primary team (3) Kidney disease, chronic, stage IV (GFR 15-29 ml/min): HPI Consult Data Date of Consult: 12/19/20 HPI Narrative HPI Narrative: KYLE WOMACK, is a 70 M who presented 12/17 with sx starting around 12/09. He is not exactly sure. Reports headache, cough, aches, diarrhea, fatigue. Those sx have resolved, came to ED with progressive dyspnea. He and are vaccinated. mildly ill, is covid (+). He came to ED, admitted on dex, feeling better. Full ROS performed and neg except as noted above. [facility] Medical History Aortic valve disease Arthritis Atherosclerotic heart disease of [place] coronary artery without angina pectoris Cardiology follow-up encounter (~08/10/20) COPD (chronic obstructive pulmonary disease) COPD (chronic obstructive pulmonary disease) Coronary atherosclerosis of [place] coronary artery CPAP (continuous positive airway pressure) dependence Diabetes Diabetes mellitus Diastolic dysfunction Essential hypertension Former smoker Gastric reflux GI bleed (~10/2019) History of diverticulitis History of hiatal hernia History of renal dialysis History of renal disease History of stress test (~07/23/18) HTN (hypertension) Hypertension Insulin dependent diabetes mellitus Nonrheumatic aortic (valve) stenosis Normal echocardiogram (~08/18/20) On home oxygen therapy Presence of stent in coronary artery (~08/25/14) Pure hypercholesterolemia Shortness of breath on exertion Skin tear Sleep apnea Type 2 diabetes mellitus Wears dentures Wears hearing aid Home Medications berberine-herbal comb no.18 capsule 2 cap PO BID cap 02/24/18 [History Last Taken 12/16/20 21:00] allopurinol 100 mg PO DAILY 02/25/19 [History Last Taken 12/16/20 09:00] astaxanthin 4 mg PO DAILY 02/25/19 [History Last Taken 12/16/20 21:00] insulin aspart U-100 36 units SUBCUT TIDCM 02/25/19 [History Last Taken 12/16/20 17:00] coenzyme Q10 400 mg PO BID 11/10/19 [History Last Taken 12/16/20 21:00] insulin glargine 100 unit/mL (3 mL) subcutaneous pen 50 unit SUBCUT BID ml 02/04/20 [History Last Taken 12/16/20 21:00] isosorbide mononitrate 30 mg tablet,extended release 24 hr 30 mg PO DAILY #90 tab 05/16/20 [Rx Last Taken 12/16/20 09:00] aspirin 81 mg PO DAILY@0800 06/30/20 [History Last Taken 12/16/20 09:00] pantoprazole 40 mg PO DAILY 06/30/20 [History Last Taken 12/16/20 09:00] trazodone 50 mg PO QHS PRN PRN 07/10/20 [History Last Taken Unknown] albuterol sulfate 90 mcg/actuation aerosol inhaler 2 puff INHALATION BID 08/09/20 [History Last Taken 12/16/20 21:00] fluoxetine 60 mg tablet 60 mg PO DAILY 08/10/20 [History Last Taken 12/16/20 09:00] ferrous sulfate 325 mg (65 mg iron) tablet 325 mg PO DAILY 11/03/20 [History Last Taken 12/16/20 21:00] metoprolol tartrate 25 mg tablet 50 mg PO BID tab 11/03/20 [History Last Taken 12/16/20 21:00] nitroglycerin 0.4 mg sublingual tablet 0.4 mg SUBLINGUAL Q5-15M PRN #25 tab 11/03/20 [Rx Last Taken Unknown] amlodipine 5 mg PO BID 12/17/20 [History Last Taken 12/16/20 09:00] furosemide 40 mg PO BID 12/17/20 [History Last Taken 12/16/20 17:00] metolazone 5 mg PO PRN 12/17/20 [History Last Taken Unknown] Allergy/AdvReac Type Severity Reaction Status Date / Time carvedilol [From Coreg] Allergy Severe vomiting Verified 12/17/20 00:17 valsartan [From Diovan] Allergy Severe Possible Verified 12/17/20 00:17 angioedema, throat swelling sertraline HCl [From Zoloft] Allergy Unknown Verified 12/17/20 00:17 bupropion HCl AdvReac gets mean Verified 12/17/20 00:17 [From Wellbutrin] citalopram AdvReac Other Verified 12/17/20 00:17 gabapentin AdvReac Other Verified 12/17/20 00:17 Family History Father CAD (coronary artery disease) Afib Aortic valve replaced Prostate cancer Mother Cancer Son Lupus Surgical History History of bilateral knee replacement History of cardiac catheterization (~06/24/20) History of carpal tunnel repair History of cholecystectomy History of colonoscopy (~12/2019) History of esophagogastroduodenoscopy (EGD) (~12/2019) History of partial colectomy History of repair of rotator cuff Presence of coronary angioplasty implant and graft S/P CABG x 3 (~07/21/12) S/P PTCA (percutaneous transluminal coronary angioplasty) S/P TAVR (transcatheter aortic valve replacement) Social History (Updated 12/17/20 @ 06:45 by Janice Gustafson) household members: spouse housing: house history of recent travel: No Smoking Status: Former smoker how long ago did patient quit smokin alcohol intake: never substance use type: does not use caffeine: No what type of physical activity do you participate in: none seatbelt use: always do you feel safe at home: Yes Physical Exam Const alert and oriented x3 Constitutional Narrative: ill appearing General Appearance: cooperative Exam Limitations: no limitations HEENT normocephalic and head/scalp atraumatic Eyes PERRL and EOMs intact bilaterally Neck supple and No nodes Resp clear to auscultation bilaterally Auscultation: diminished lung sounds Cardio regular rate and regular rhythm GI normal to inspection, nondistended, normoactive bowel sounds Extremity General Extremity: edema Skin no rashes or lesions noted Neuro CN's II-XII intact bilaterally Lab / Micro Data Result Diagrams: 12/18/20 06:40 12/19/20 05:10 Labs: Laboratory Results - last 24 hr 12/18/20 16:36: POC Glucose 197 H 12/18/20 23:24: POC Glucose 275 H 12/19/20 05:10: Sodium 140, Potassium 4.9, Chloride 109 H, Carbon Dioxide 21.0, Anion Gap 10, BUN 120 H*, Creatinine 4.30 H, Estim Creat Clear Calc 16.74, Est GFR (MDRD) Af Amer 18 L, Est GFR (MDRD) Non-Af 15 L, BUN/Creatinine Ratio 27.9 H , Glucose 273 H, Calcium 7.9 L 12/19/20 07:26: POC Glucose 232 H 12/19/20 11:36: POC Glucose 240 H Micro: Microbiology 12/17/20 01:08 Blood Culture (Wb) - Left Hand Blood Culture - Preliminary No growth in 48 hours. 12/17/20 00:36 Blood Culture (Wb) - Arm Right Blood Culture - Preliminary No growth in 48 hours.
[2020-12-19 17:05] LABS: Bedside Glucose 263 mg/dL (70-110)
[2020-12-19] MEDS: Furosemide 100 MG/10 ML Vial 60 MG IV (18:26)
--- NOTE | 2020-12-19 19:31 | PN.HOSP_ITS ---
Subjective Subjective Patient was seen and examined today, his creatinine worsened today to 4.3, he is currently on 15 L via nasal cannula supplemental oxygen. I talked by phone with nephrology who has seen the patient before, they recommended giving the patient IV Lasix, I asked nephrology to see the patient in consultation. Infectious diseases saw the patient today but due to the patient's renal function and length that his Covid illness, infectious diseases does not feel the patient is a candidate for remdesivir or baricitinib. Objective Data Objective Data Vital Signs: Vital Signs Temp Pulse Resp BP Pulse Ox 97.5 F L 64 20 H 116/70 93 12/19/20 15:40 12/19/20 15:40 12/19/20 15:40 12/19/20 15:40 12/19/20 15:40 Oxygen Flow Rate (L/min) 15 Oxygen Delivery Method Nasal Cannula Weight: 106.7 kg Body Mass Index (BMI) 33.7 Intake & Output: Intake and Output for Last 24 Hours 12/17/20 12/18/20 12/19/20 23:59 23:59 23:59 Intake Total 700 / 700 420 / 520 1560 / 1560 Output Total 2090 / 2090 700 / 1000 1150 / 1150 Balance -1390 / -1390 -280 / -480 410 / 410 Lab / Micro Data Result Diagrams: 12/18/20 06:40 12/19/20 05:10 Labs: Laboratory Results - last 24 hr 12/18/20 23:24: POC Glucose 275 H 12/19/20 05:10: Sodium 140, Potassium 4.9, Chloride 109 H, Carbon Dioxide 21.0, Anion Gap 10, BUN 120 H*, Creatinine 4.30 H, Estim Creat Clear Calc 16.74, Est GFR (MDRD) Af Amer 18 L, Est GFR (MDRD) Non-Af 15 L, BUN/Creatinine Ratio 27.9 H , Glucose 273 H, Calcium 7.9 L 12/19/20 07:26: POC Glucose 232 H 12/19/20 11:36: POC Glucose 240 H 12/19/20 16:56: POC Glucose 263 H Micro: Microbiology 12/17/20 01:08 Blood Culture (Wb) - Left Hand Blood Culture - Preliminary No growth in 48 hours. 12/17/20 00:36 Blood Culture (Wb) - Arm Right Blood Culture - Preliminary No growth in 48 hours. 12/17/20 00:59 Nasal Secretion SARS-CoV-2 Antigen (Rapid) - Final SARS-CoV-2 (COVID 19) Physical Exam Const alert and oriented x3 General Appearance: cooperative, well kempt and well developed Orientation / Consciousness: awake, oriented to person, oriented to place and oriented to time HEENT normocephalic, head/scalp atraumatic and moist oral mucous membranes Head and Scalp: normocephalic Eyes PERRL, EOMs intact bilaterally and conjunctivae normal Neck nuchal rigidity, supple, no JVD, thyroid normal and no carotid bruits General: trachea midline Resp normal respiratory effort, no retractions and no use of accessory muscles Resp Narrative: Breath sounds are distant bilaterally Auscultation: Negative for rales, rhonchi or wheezes Cardio regular rate, regular rhythm, S1 normal heart sound, S2 normal heart sound, no murmurs, no rub, no gallops and no clicks GI normal to inspection, nondistended, normoactive bowel sounds, soft to palpation, non-tender and non-distended Extremity no clubbing, cyanosis or edema Skin no rashes or lesions noted General Skin Exam: no breakdown Neuro oriented x3, CN's II-XII intact bilaterally, no focal motor deficits and no sensory deficits noted Sensorium / Orientation: awake and alert Speech: speech normal Psych thought process normal and affect normal Assessment & Plan Assessment/Plan (1) Respiratory failure with hypoxia: QUALIFIERS: Chronicity: acute on chronic Qualified Code(s): J96.21 - Acute and chronic respiratory failure with hypoxia (2) COVID-19: PLAN: 1. COVID-19 pneumonia-patient will continue present treatment #2 acute on chronic diastolic congestive heart failure-patient will remain on IV Lasix, I have given the patient an extra dose of IV Lasix #3 acute on chronic hypoxic respiratory failure-pulse ox will be monitored #4 chronic kidney disease stage IV-patient will be seen in consultation by nephrology #5 exacerbation of COPD-continue present treatment #6 type 2 diabetes Charges/Coding Visit Charges Inpatient E&M: 20226 Subs Hosp L2
[2020-12-19 22:50] LABS: Bedside Glucose 226 mg/dL (70-110)
[2020-12-20] VITALS (32 sets, daily range): BP systolic 72–148; BP diastolic 46–89; PULSE 52–89; RESP 14–51; TEMP 35.8–37.3; O2SAT 80–99
[2020-12-20] MEDS: Insulin Lispro 100 UNIT/ML INSULN.PEN SC ×2 (06:31→21:49)
[2020-12-20 06:50] LABS: Bedside Glucose 206 mg/dL (70-110)
[2020-12-20] MEDS: Ipratropium/Albuterol Sulfate 3 ML AMPUL.NEB INHALATION ×3 (07:24→19:31)
[2020-12-20] MEDS: Furosemide 40 MG/4 ML Vial IV ×2 (09:00→10:06)
[2020-12-20] MEDS: FLUoxetine 20 MG Capsule 60 MG PO (09:00)
[2020-12-20] MEDS: Aspirin E.C. 81 MG Tablet PO (09:00)
[2020-12-20] MEDS: Enoxaparin 30 MG/0.3 ML Syringe SC (09:00)
[2020-12-20] MEDS: dexAMETHasone 2 MG TABLET 6 MG PO (09:00)
[2020-12-20] MEDS: Metoprolol Tartrate 50 MG Tablet PO (09:00)
[2020-12-20] MEDS: Pantoprazole Sodium 40 MG Tablet PO (09:00)
[2020-12-20] MEDS: Isosorbide Mononitrate 30 MG Tablet PO (09:00)
[2020-12-20] MEDS: 0.9% Saline Lock 10 ML Syringe IV ×2 (09:01→10:07)
--- NOTE | 2020-12-20 10:01 | PCM.CONS.R ---
Assessment & Plan Assessment/Plan (1) Acute kidney injury: (2) Kidney disease, chronic, stage IV (GFR 15-29 ml/min): (3) Congestive heart failure: QUALIFIERS: Heart failure type: diastolic Heart failure chronicity: acute Qualified Code(s): I50.31 - Acute diastolic (congestive) heart failure (4) Hypoxemia: (5) Respiratory failure with hypoxia: QUALIFIERS: Chronicity: acute on chronic Qualified Code(s): J96.21 - Acute and chronic respiratory failure with hypoxia PLAN: Acute kidney injury is likely from ATN related to Covid infection kidney function is worsening BMI to 120 as per yesterday creatinine 4.3. Renal placement therapy is indicated due to severe EDGARDO high BUN and suboptimal urine output General surgery consulted for temporary access placement for hemodialysis For hemodialysis in today after placing hemodialysis catheter. We will aim for 2 L today Patient is being treated with Decadron for COVID-19 pneumonia ID is following On BiPAP as per the primary service Thank you for the consult. We will continue to follow HPI Consult Data Date of Consult: 12/20/20 HPI Narrative HPI Narrative: KYLE WOMACK, is a 70 M CKD stage IV, history of EDGARDO needed dialysis earlier this year now off dialysis, diastolic heart failure, COPD, diabetes, and hypertension Patient was admitted for acute hypoxic respiratory failure from Covid pneumonia and CHF. Patient being diuresed with Lasix respiratory status is worsening on BiPAP 100% today. Patient has Left wrist AV fistula which needs more intervention to be functioning is following with the vascular surgery clinic renal team is consulted for worsening kidney function. Creatinine is up to 4.3 and BUN 120 yesterday. Patient seen this morning. On BiPAP complained of shortness of breath. No nausea no vomiting no chest pain Review of system: 12 system review is negative except what mentioned HPI PFSH Medical History Aortic valve disease Arthritis Atherosclerotic heart disease of [place] coronary artery without angina pectoris Cardiology follow-up encounter (~08/10/20) COPD (chronic obstructive pulmonary disease) COPD (chronic obstructive pulmonary disease) Coronary atherosclerosis of [place] coronary artery CPAP (continuous positive airway pressure) dependence Diabetes Diabetes mellitus Diastolic dysfunction Essential hypertension Former smoker Gastric reflux GI bleed (~10/2019) History of diverticulitis History of hiatal hernia History of renal dialysis History of renal disease History of stress test (~07/23/18) HTN (hypertension) Hypertension Insulin dependent diabetes mellitus Nonrheumatic aortic (valve) stenosis Normal echocardiogram (~08/18/20) On home oxygen therapy Presence of stent in coronary artery (~08/25/14) Pure hypercholesterolemia Shortness of breath on exertion Skin tear Sleep apnea Type 2 diabetes mellitus Wears dentures Wears hearing aid Home Medications berberine-herbal comb no.18 capsule 2 cap PO BID cap 02/24/18 [History Last Taken 12/16/20 21:00] allopurinol 100 mg PO DAILY 02/25/19 [History Last Taken 12/16/20 09:00] astaxanthin 4 mg PO DAILY 02/25/19 [History Last Taken 12/16/20 21:00] insulin aspart U-100 36 units SUBCUT TIDCM 02/25/19 [History Last Taken 12/16/20 17:00] coenzyme Q10 400 mg PO BID 11/10/19 [History Last Taken 12/16/20 21:00] insulin glargine 100 unit/mL (3 mL) subcutaneous pen 50 unit SUBCUT BID ml 02/04/20 [History Last Taken 12/16/20 21:00] isosorbide mononitrate 30 mg tablet,extended release 24 hr 30 mg PO DAILY #90 tab 05/16/20 [Rx Last Taken 12/16/20 09:00] aspirin 81 mg PO DAILY@0800 06/30/20 [History Last Taken 12/16/20 09:00] pantoprazole 40 mg PO DAILY 06/30/20 [History Last Taken 12/16/20 09:00] trazodone 50 mg PO QHS PRN PRN 07/10/20 [History Last Taken Unknown] albuterol sulfate 90 mcg/actuation aerosol inhaler 2 puff INHALATION BID 08/09/20 [History Last Taken 12/16/20 21:00] fluoxetine 60 mg tablet 60 mg PO DAILY 08/10/20 [History Last Taken 12/16/20 09:00] ferrous sulfate 325 mg (65 mg iron) tablet 325 mg PO DAILY 11/03/20 [History Last Taken 12/16/20 21:00] metoprolol tartrate 25 mg tablet 50 mg PO BID tab 11/03/20 [History Last Taken 12/16/20 21:00] nitroglycerin 0.4 mg sublingual tablet 0.4 mg SUBLINGUAL Q5-15M PRN #25 tab 11/03/20 [Rx Last Taken Unknown] amlodipine 5 mg PO BID 12/17/20 [History Last Taken 12/16/20 09:00] furosemide 40 mg PO BID 12/17/20 [History Last Taken 12/16/20 17:00] metolazone 5 mg PO PRN 12/17/20 [History Last Taken Unknown] Allergy/AdvReac Type Severity Reaction Status Date / Time carvedilol [From Coreg] Allergy Severe vomiting Verified 12/17/20 00:17 valsartan [From Diovan] Allergy Severe Possible Verified 12/17/20 00:17 angioedema, throat swelling sertraline HCl [From Zoloft] Allergy Unknown Verified 12/17/20 00:17 bupropion HCl AdvReac gets mean Verified 12/17/20 00:17 [From Wellbutrin] citalopram AdvReac Other Verified 12/17/20 00:17 gabapentin AdvReac Other Verified 12/17/20 00:17 Family History Father CAD (coronary artery disease) Afib Aortic valve replaced Prostate cancer Mother Cancer Son Lupus Surgical History History of bilateral knee replacement History of cardiac catheterization (~06/24/20) History of carpal tunnel repair History of cholecystectomy History of colonoscopy (~12/2019) History of esophagogastroduodenoscopy (EGD) (~12/2019) History of partial colectomy History of repair of rotator cuff Presence of coronary angioplasty implant and graft S/P CABG x 3 (~07/21/12) S/P PTCA (percutaneous transluminal coronary angioplasty) S/P TAVR (transcatheter aortic valve replacement) Social History (Updated 12/17/20 @ 06:45 by Janice Gustafson) household members: spouse housing: house history of recent travel: No Smoking Status: Former smoker how long ago did patient quit smokin alcohol intake: never substance use type: does not use caffeine: No what type of physical activity do you participate in: none seatbelt use: always do you feel safe at home: Yes Physical Exam Narrative Patient is awake alert oriented following commands Head atraumatic normocephalic Eyes PERRLA Neck no JVD Heart S1-S2 RRR Chest bilateral coarse breathing sounds Abdomen soft positive bowel sounds tenderness Extremity no edema Neurology awake alert oriented following commands. No focals Skin no skin rash Has external male catheter Lab / Micro Data Result Diagrams: 12/18/20 06:40 12/19/20 05:10 Labs: Laboratory Results - last 24 hr 12/19/20 11:36: POC Glucose 240 H 12/19/20 16:56: POC Glucose 263 H 12/19/20 22:32: POC Glucose 226 H 12/20/20 06:30: POC Glucose 206 H Micro: Microbiology 12/17/20 01:08 Blood Culture (Wb) - Left Hand Blood Culture - Preliminary No growth in 48 hours. 12/17/20 00:36 Blood Culture (Wb) - Arm Right Blood Culture - Preliminary No growth in 48 hours.
--- NOTE | 2020-12-20 10:41 | EX.PCM.CON.S ---
Assessment & Plan Assessment/Plan (1) Acute kidney injury: (2) Respiratory failure with hypoxia: QUALIFIERS: Chronicity: acute on chronic Qualified Code(s): J96.21 - Acute and chronic respiratory failure with hypoxia (3) COVID-19: (4) Problem with dialysis access: QUALIFIERS: Encounter type: initial encounter Qualified Code(s): T82.898A - Other specified complication of vascular prosthetic devices, implants and grafts, initial encounter PLAN: Discussed the procedure with the patient placing on temporary dialysis catheter in his neck. Including risks not limited to but including bleeding, infection, need for more permanent dialysis access requiring OR for tunnel catheter in the future, etc. Patient no further question this time. Yael Harrison M.D. Pager: [phone] [facility] [address] [place] [address], [facility], [address] [place] [address] Office: [phone] HPI Consult Data Date of Consult: 12/22/20 HPI Narrative HPI Narrative: KYLE WOMACK, is a 70 M who was admitted due to respiratory failure with hypoxia COPD aspiration/diagnosis of Covid. Patient has chronic kidney disease. He does have left AV fistula however is not functional, patient has not needed dialysis recently until this hospitalization. Patient is currently on BiPAP satting 85 to 88%. [facility] Medical History Aortic valve disease Arthritis Atherosclerotic heart disease of [place] coronary artery without angina pectoris Cardiology follow-up encounter (~08/10/20) COPD (chronic obstructive pulmonary disease) COPD (chronic obstructive pulmonary disease) Coronary atherosclerosis of [place] coronary artery CPAP (continuous positive airway pressure) dependence Diabetes Diabetes mellitus Diastolic dysfunction Essential hypertension Former smoker Gastric reflux GI bleed (~10/2019) History of diverticulitis History of hiatal hernia History of renal dialysis History of renal disease History of stress test (~07/23/18) HTN (hypertension) Hypertension Insulin dependent diabetes mellitus Nonrheumatic aortic (valve) stenosis Normal echocardiogram (~08/18/20) On home oxygen therapy Presence of stent in coronary artery (~08/25/14) Pure hypercholesterolemia Shortness of breath on exertion Skin tear Sleep apnea Type 2 diabetes mellitus Wears dentures Wears hearing aid Home Medications berberine-herbal comb no.18 capsule 2 cap PO BID cap 02/24/18 [History Last Taken 12/16/20 21:00] allopurinol 100 mg PO DAILY 02/25/19 [History Last Taken 12/16/20 09:00] astaxanthin 4 mg PO DAILY 02/25/19 [History Last Taken 12/16/20 21:00] insulin aspart U-100 36 units SUBCUT TIDCM 02/25/19 [History Last Taken 12/16/20 17:00] coenzyme Q10 400 mg PO BID 11/10/19 [History Last Taken 12/16/20 21:00] insulin glargine 100 unit/mL (3 mL) subcutaneous pen 50 unit SUBCUT BID ml 02/04/20 [History Last Taken 12/16/20 21:00] isosorbide mononitrate 30 mg tablet,extended release 24 hr 30 mg PO DAILY #90 tab 05/16/20 [Rx Last Taken 12/16/20 09:00] aspirin 81 mg PO DAILY@0800 06/30/20 [History Last Taken 12/16/20 09:00] pantoprazole 40 mg PO DAILY 06/30/20 [History Last Taken 12/16/20 09:00] trazodone 50 mg PO QHS PRN PRN 07/10/20 [History Last Taken Unknown] albuterol sulfate 90 mcg/actuation aerosol inhaler 2 puff INHALATION BID 08/09/20 [History Last Taken 12/16/20 21:00] fluoxetine 60 mg tablet 60 mg PO DAILY 08/10/20 [History Last Taken 12/16/20 09:00] ferrous sulfate 325 mg (65 mg iron) tablet 325 mg PO DAILY 11/03/20 [History Last Taken 12/16/20 21:00] metoprolol tartrate 25 mg tablet 50 mg PO BID tab 11/03/20 [History Last Taken 12/16/20 21:00] nitroglycerin 0.4 mg sublingual tablet 0.4 mg SUBLINGUAL Q5-15M PRN #25 tab 11/03/20 [Rx Last Taken Unknown] amlodipine 5 mg PO BID 12/17/20 [History Last Taken 12/16/20 09:00] furosemide 40 mg PO BID 12/17/20 [History Last Taken 12/16/20 17:00] metolazone 5 mg PO PRN 12/17/20 [History Last Taken Unknown] Allergy/AdvReac Type Severity Reaction Status Date / Time carvedilol [From Coreg] Allergy Severe vomiting Verified 12/17/20 00:17 valsartan [From Diovan] Allergy Severe Possible Verified 12/17/20 00:17 angioedema, throat swelling sertraline HCl [From Zoloft] Allergy Unknown Verified 12/17/20 00:17 bupropion HCl AdvReac gets mean Verified 12/17/20 00:17 [From Wellbutrin] citalopram AdvReac Other Verified 12/17/20 00:17 gabapentin AdvReac Other Verified 12/17/20 00:17 Family History Father CAD (coronary artery disease) Afib Aortic valve replaced Prostate cancer Mother Cancer Son Lupus Surgical History History of bilateral knee replacement History of cardiac catheterization (~06/24/20) History of carpal tunnel repair History of cholecystectomy History of colonoscopy (~12/2019) History of esophagogastroduodenoscopy (EGD) (~12/2019) History of partial colectomy History of repair of rotator cuff Presence of coronary angioplasty implant and graft S/P CABG x 3 (~07/21/12) S/P PTCA (percutaneous transluminal coronary angioplasty) S/P TAVR (transcatheter aortic valve replacement) Social History (Updated 12/17/20 @ 06:45 by Janice Gustafson) household members: spouse housing: house history of recent travel: No Smoking Status: Former smoker how long ago did patient quit smokin alcohol intake: never substance use type: does not use caffeine: No what type of physical activity do you participate in: none seatbelt use: always do you feel safe at home: Yes ROS Constitutional Constitutional: Reports fatigue Eyes Eyes: Denies blurry vision ENT HEENT: Reports headache(s); Denies dizziness Cardiovascular Cardiovascular: Reports dyspnea; Denies chest pain Respiratory/Chest Respiratory/Chest: Reports cough and dyspnea Gastrointestinal Gastrointestinal: Denies abdominal pain, nausea or vomiting Genitourinary Genitourinary: Denies difficulty urinating Musculoskeletal Musculoskeletal: Denies back pain Integumentary Integumentary: Denies rash Neurologic Neurologic: Denies abnormal speech Psychiatric Psychiatric: Denies anxiety or depression Endocrine Endocrinology: Reports fatigue Hematologic/Lymphatic Hematologic/Lymphatic: Denies easy bleeding Physical Exam Const alert, oriented x3 and no apparent distress HEENT normocephalic and head/scalp atraumatic Neck Neck Narrative: Patient has had previous catheters in his neck couple on the right and couple on the left per patient. Resp Resp Narrative: Patient is on BiPAP Cardio regular rate Rate: regular rate GI soft to palpation and non-tender; Negative for non-distended Palpation: Negative for guarding Extremity no clubbing, cyanosis or edema Neuro CN's II-XII intact bilaterally Psych mental status grossly normal Lab / Micro Data Result Diagrams: 12/21/20 05:00 12/21/20 05:00 Labs: Laboratory Results - last 24 hr 12/19/20 11:36: POC Glucose 240 H 12/19/20 16:56: POC Glucose 263 H 12/19/20 22:32: POC Glucose 226 H 12/20/20 06:30: POC Glucose 206 H Micro: Microbiology 12/17/20 01:08 Blood Culture (Wb) - Left Hand Blood Culture - Preliminary No growth in 48 hours. 12/17/20 00:36 Blood Culture (Wb) - Arm Right Blood Culture - Preliminary No growth in 48 hours. Charges/Coding Visit Charges Inpatient E&M: 55461 Init Hosp L3
--- NOTE | 2020-12-20 11:42 | OP.PCM_ITS ---
Report of Operation Date of Procedure: 12/20/20 Pre-Operative Diagnosis: Acute on chronic kidney disease, need for HD catheter for dialysis Post-Operative Diagnosis: Same Surgery/Procedure Performed:: Placement of temporary left IJ dialysis catheter Description of Surgical Findings:: Initially attempted to place a right IJ dialysis catheter however is able to get access to the vein with the needle but the guidewire hit resistance. Right side was aborted. Surgeon: Yael Harrison Type of Anesthesia: Local Estimated Blood Loss (mL): 5 cc Description of Procedure: Procedure: A time-out was completed to verify correct patient, indication, medication allergies, procedure, coagulation studies, informed consent signed, and equipment needed. The patient was placed in the supine position for a central line placement to the right IJ vein. The patients right neck was prepped using chlorhexidine and a full body sterile drape was applied. 1% lidocaine was used to anesthetize the surrounding skin. The right IJ was accessed however hit resistance thus the right side was aborted. The left IJ was prepped and draped in usual sterile fashion with chlorhexidine and a new full body drape was applied. 1% lidocaine was used to anesthetize the surrounding skin. A [employer]urkar Elite 12 [employer]har[employer] x20 cm (ref [id number] lot [id number]) Temporary hemodialysis catheter introduced into the internal jugular vein using the modified Seldinger technique with the assistance of ultrasound. The site was dilated up twice in a stepwise fashion. The catheter was threaded smoothly over the guidewire, the guidewire was removed easily, nonpulsatile blood returned. All ports were aspirated of air and flushed with sterile saline Then flushed with 1:10,000 heparin 1.3 mL to each port. The catheter was sutured in place and covered with an occlusive dressing impregnated with chlorhexidine. Patient tolerated procedure well. Chest x-ray was ordered. Grafts/Implants Used: Mahurkar Elite 12 Amharic x20 cm (ref [id number] lot [id number]) Complications none
[2020-12-20] MEDS: Heparin 10,000 UNITS/10 ML Vial 1000 UNITS IV (11:43)
--- NOTE | 2020-12-20 11:46 | RAD_ITS ---
STUDY: X-RAY CHEST REASON FOR EXAM: Male, 70 years old. Line placement -- line is in- we are ready for xray TECHNIQUE: Single AP portable view of the chest. COMPARISON: Comparison is made with prior study dated 12/17/2020. FINDINGS: A left-sided central venous catheter has been placed. The tip is at the junction of the superior vena cava and right atrium. EKG electrodes are seen. Since prior study, there has been progression of bilateral patchy infiltrates worse in the right lung. There is no demonstrated pleural abnormality. Sternal cerclage wires and vascular clips are present from a prior sternotomy and coronary artery bypass graft procedure (CABG). Mild cardiomegaly. Prosthetic aortic valve. Normal mediastinum and ursula. Normal visualized pulmonary arteries. There is atherosclerotic calcification of the aortic arch with tortuosity. There are diffuse degenerative changes of the visualized thoracic spine. Normal visualized ribs, clavicles, and shoulders. There is no demonstrated abnormality of the visualized soft tissue structures of the upper abdomen. RAD/CXR for Line Placement IMPRESSION: The tip of the left-sided central catheter is at the junction of the superior vena cava and right atrium. Progressive bilateral patchy infiltrates. Electronically Signed: Keagan Long MD at 12:27 EDT , Service support ,
[2020-12-20 11:51] LABS: Bedside Glucose 126 mg/dL (70-110)
--- NOTE | 2020-12-20 14:17 | CON.PCM.CC_ITS ---
Assessment & Plan Assessment/Plan (1) Respiratory failure with hypoxia: QUALIFIERS: Chronicity: acute on chronic Qualified Code(s): J96.21 - Acute and chronic respiratory failure with hypoxia (2) COVID-19: PLAN: RECOMMENDATIONS: 1. Continue noninvasive positive pressure ventilatory support. 2. Wean FiO2 to maintain oxygen saturations at or above 90%. 3. Proceed with dialysis. 4. If no improvement in oxygenation status following dialysis, transfer to ICU. 5. Continue Decadron, Lovenox and bronchodilator therapy. IMPRESSIONS: 1. Acute hypoxemic respiratory failure secondary to COVID-19 pneumonia The patient presented to the hospital with progressive Covid symptoms, despite having reportedly been vaccinated previously. Unfortunately, due to delayed presentation and underlying renal insufficiency, was not deemed to be a candidate for remdesivir or baricitinib. The patient will be continued on Decadron, with plans to complete a 10-day treatment course. In addition, he will be continued on Lovenox as ordered. The patient's underlying renal insufficiency may also be complicating his clinical picture. There are tentative plans to proceed with dialysis today. For now, the patient will be continued on noninvasive positive pressure ventilatory support. If there is no improvement in his oxygenation status with volume optimization through hemodialysis, I would plan to transfer the patient to the medical intensive care unit. 2. Acute on chronic kidney disease Likely secondary to ATN in the setting #1. Nephrology is currently following up with plans to proceed with dialysis today. 3. Personal history of asthma/obstructive sleep apnea/hypertension/GERD/obesity Complicates care, management, recovery and prognosis. Continue home medications as indicated. The patient should remain n.p.o. for now. This note was generated with [employer] dictation software. It may contain incorrect words, spelling, and punctuation that were not noted in checking the note before signing. HPI Consult Data Date of Consult: 12/21/20 HPI Narrative Reason for Consultation: Acute hypoxemic respiratory failure HPI Narrative: The patient is a 70-year-old male, with a history as outlined below, who presented to the emergency department on December 17 with shortness of breath and hypoxemia. The patient symptoms initially began approximately 11 days ago. He did previously receive a coronavirus vaccination. His was recently diagnosed with COVID-19 as well. I currently follow with the patient in the pulmonary medicine clinic due to a history of asthma and obstructive sleep apnea. On presentation to the emergency department, the patient was noted to be febrile but hemodynamically stable. Initial laboratory evaluation revealed no evidence of a leukocytosis. Chemistry profile was notable for a bicarbonate of 21 and creatinine of 3.9. BNP was elevated to 686. Rapid coronavirus antigen testing was positive. Chest x-ray demonstrated patchy bilateral airspace disease. The patient was initially admitted to the progressive care unit for management of his Covid pneumonia. The patient was seen in consultation by infectious diseases, but was not deemed to be a candidate for remdesivir given delayed presentation and renal insufficiency. He was also felt not to be a candidate for baricitinib. Therefore, the patient was being maintained on Decadron. Unfortunately, the patient's renal function continued to decline, ultimately requiring temporary HD line placement and attempt at hemodialysis. [facility] Medical History Aortic valve disease Arthritis Atherosclerotic heart disease of [place] coronary artery without angina pectoris Cardiology follow-up encounter (~08/10/20) COPD (chronic obstructive pulmonary disease) COPD (chronic obstructive pulmonary disease) Coronary atherosclerosis of [place] coronary artery CPAP (continuous positive airway pressure) dependence Diabetes Diabetes mellitus Diastolic dysfunction Essential hypertension Former smoker Gastric reflux GI bleed (~10/2019) History of diverticulitis History of hiatal hernia History of renal dialysis History of renal disease History of stress test (~07/23/18) HTN (hypertension) Hypertension Insulin dependent diabetes mellitus Nonrheumatic aortic (valve) stenosis Normal echocardiogram (~08/18/20) On home oxygen therapy Presence of stent in coronary artery (~08/25/14) Pure hypercholesterolemia Shortness of breath on exertion Skin tear Sleep apnea Type 2 diabetes mellitus Wears dentures Wears hearing aid Home Medications berberine-herbal comb no.18 capsule 2 cap PO BID cap 02/24/18 [History Last Taken 12/16/20 21:00] allopurinol 100 mg PO DAILY 02/25/19 [History Last Taken 12/16/20 09:00] astaxanthin 4 mg PO DAILY 02/25/19 [History Last Taken 12/16/20 21:00] insulin aspart U-100 36 units SUBCUT TIDCM 02/25/19 [History Last Taken 12/16/20 17:00] coenzyme Q10 400 mg PO BID 11/10/19 [History Last Taken 12/16/20 21:00] insulin glargine 100 unit/mL (3 mL) subcutaneous pen 50 unit SUBCUT BID ml 02/04/20 [History Last Taken 12/16/20 21:00] isosorbide mononitrate 30 mg tablet,extended release 24 hr 30 mg PO DAILY #90 tab 05/16/20 [Rx Last Taken 12/16/20 09:00] aspirin 81 mg PO DAILY@0800 06/30/20 [History Last Taken 12/16/20 09:00] pantoprazole 40 mg PO DAILY 06/30/20 [History Last Taken 12/16/20 09:00] trazodone 50 mg PO QHS PRN PRN 07/10/20 [History Last Taken Unknown] albuterol sulfate 90 mcg/actuation aerosol inhaler 2 puff INHALATION BID 07/30 04/21 [History Last Taken 12/16/20 21:00] fluoxetine 60 mg tablet 60 mg PO DAILY 08/10/20 [History Last Taken 12/16/20 09:00] ferrous sulfate 325 mg (65 mg iron) tablet 325 mg PO DAILY 11/03/20 [History Last Taken 12/16/20 21:00] metoprolol tartrate 25 mg tablet 50 mg PO BID tab 11/03/20 [History Last Taken 12/16/20 21:00] nitroglycerin 0.4 mg sublingual tablet 0.4 mg SUBLINGUAL Q5-15M PRN #25 tab 11/03/20 [Rx Last Taken Unknown] amlodipine 5 mg PO BID 12/17/20 [History Last Taken 12/16/20 09:00] furosemide 40 mg PO BID 12/17/20 [History Last Taken 12/16/20 17:00] metolazone 5 mg PO PRN 12/17/20 [History Last Taken Unknown] Allergy/AdvReac Type Severity Reaction Status Date / Time carvedilol [From Coreg] Allergy Severe vomiting Verified 12/17/20 00:17 valsartan [From Diovan] Allergy Severe Possible Verified 12/17/20 00:17 angioedema, throat swelling sertraline HCl [From Zoloft] Allergy Unknown Verified 12/17/20 00:17 bupropion HCl AdvReac gets mean Verified 12/17/20 00:17 [From Wellbutrin] citalopram AdvReac Other Verified 12/17/20 00:17 gabapentin AdvReac Other Verified 12/17/20 00:17 Family History Father CAD (coronary artery disease) Afib Aortic valve replaced Prostate cancer Mother Cancer Son Lupus Surgical History History of bilateral knee replacement History of cardiac catheterization (~06/24/20) History of carpal tunnel repair History of cholecystectomy History of colonoscopy (~12/2019) History of esophagogastroduodenoscopy (EGD) (~12/2019) History of partial colectomy History of repair of rotator cuff Presence of coronary angioplasty implant and graft S/P CABG x 3 (~07/21/12) S/P PTCA (percutaneous transluminal coronary angioplasty) S/P TAVR (transcatheter aortic valve replacement) Social History (Updated 12/17/20 @ 06:45 by Janice Gustafson) household members: spouse housing: house history of recent travel: No Smoking Status: Former smoker how long ago did patient quit smokin alcohol intake: never substance use type: does not use caffeine: No what type of physical activity do you participate in: none seatbelt use: always do you feel safe at home: Yes ROS Constitutional Constitutional: Reports body ache(s), fatigue and headache(s) Eyes Eyes: Denies blurry vision or change in vision ENT HEENT: Reports headache(s); Denies dizziness or nasal congestion Cardiovascular Cardiovascular: Reports dyspnea; Denies chest pain Respiratory/Chest Respiratory/Chest: Reports cough and dyspnea Gastrointestinal Gastrointestinal: Denies abdominal pain, diarrhea, nausea or vomiting Genitourinary Genitourinary: Denies difficulty urinating Musculoskeletal Musculoskeletal: Denies arthralgias, back pain or joint pain Integumentary Integumentary: Denies lesions, rash or skin ulcer Neurologic Neurologic: Denies abnormal gait or abnormal speech Psychiatric Psychiatric: Denies anxiety or depression Endocrine Endocrinology: Reports fatigue Hematologic/Lymphatic Hematologic/Lymphatic: Denies easy bleeding or easy bruising Physical Exam Const alert General Appearance: cooperative, ill appearing and on BiPAP Nutritional Appearance: obese HEENT normocephalic and head/scalp atraumatic Eyes PERRL and EOMs intact bilaterally Neck supple General: trachea midline and CVC in place Chest inspection of chest normal Resp Effort and Inspection: tachypneic Auscultation: diminished lung sounds; Negative for rales, rhonchi or wheezes Cardio regular rate and regular rhythm GI normal to inspection, nondistended, normoactive bowel sounds Extremity no clubbing, cyanosis or edema Skin no rashes or lesions noted Neuro no focal motor deficits Psych cooperative and affect normal Lab / Micro Data Result Diagrams: 12/21/20 05:00 12/21/20 05:00 Labs: Laboratory Results - last 24 hr 12/19/20 16:56: POC Glucose 263 H 12/19/20 22:32: POC Glucose 226 H 12/20/20 06:30: POC Glucose 206 H 12/20/20 11:41: POC Glucose 126 H Radiology Impression Chest X-Ray 12/20/20 11:46 IMPRESSION: The tip of the left-sided central catheter is at the junction of the superior vena cava and right atrium. Progressive bilateral patchy infiltrates. Electronically Signed: Keagan Long MD at 12:27 EDT , Service support , Charges/Coding Visit Charges Inpatient E&M: 45739 Init Hosp L3
[2020-12-20 16:23] LABS: Hepatitis B Surface Antigen Non-Reactive (Nonreactive)
--- NOTE | 2020-12-20 16:33 | NURSING ---
called report to Kelsey STRICKLAND in ICU
--- NOTE | 2020-12-20 16:34 | DIALYSIS ---
Pt received 1 hour and 20 minutes of ultrafiltration via left IJ temporary CVC, which has slow ooz from insertion site, RN and MD both aware. IUF stopped early (ordered 2 hours) d/t low SATs during treatment and PCU staff wanting to move pt to ICU. crit line showed profile C throughout treatment, how BP stable during this time. Total 1200ml fluid removed during treatment. Dr. Joyce notified.
[2020-12-20 17:01] LABS: Bedside Glucose 143 mg/dL (70-110)
--- NOTE | 2020-12-20 17:48 | PN.HOSP_ITS ---
Subjective Subjective Patient was seen and examined today, I talked with pulmonary medicine who I had see the patient in consultation, I also talked with nephrology. Patient had a temporary dialysis catheter placed and dialysis was performed this afternoon, unfortunately, patient had an oxygen desaturation during the dialysis and was t ransferred to the ICU under the direction of pulmonary medicine. At the time of this dictation, patient is in the prone position in ICU and he is satting 95% on 100% O2. I talked with his about his condition today. Objective Data Objective Data Vital Signs: Vital Signs Temp Pulse Resp BP Pulse Ox 96.4 F L 57 L 25 H 129/66 H 84 12/20/20 16:17 12/20/20 16:17 12/20/20 16:17 12/20/20 16:17 12/20/20 16:17 Oxygen Flow Rate (L/min) 92 Oxygen Delivery Method CPAP Weight: 103.6 kg Body Mass Index (BMI) 33.7 Intake & Output: Intake and Output for Last 24 Hours 12/18/20 12/19/20 12/20/20 23:59 23:59 23:59 Intake Total 420 / 520 1560 / 1760 550 / 550 Output Total 700 / 1000 1150 / 1550 2600 / 2600 Balance -280 / -480 410 / 210 -2050 / -2050 Lab / Micro Data Result Diagrams: 12/18/20 06:40 12/19/20 05:10 Labs: Laboratory Results - last 24 hr 12/19/20 22:32: POC Glucose 226 H 12/20/20 06:30: POC Glucose 206 H 12/20/20 11:41: POC Glucose 126 H 12/20/20 15:00: Hep Bs Antigen Non-Reactive 12/20/20 16:36: POC Glucose 143 H Micro: Microbiology 12/17/20 01:08 Blood Culture (Wb) - Left Hand Blood Culture - Preliminary No growth in 48 hours. 12/17/20 00:36 Blood Culture (Wb) - Arm Right Blood Culture - Preliminary No growth in 48 hours. 12/17/20 00:59 Nasal Secretion SARS-CoV-2 Antigen (Rapid) - Final SARS-CoV-2 (COVID 19) Radiography Diagnostic Testing: Radiology Impression Chest X-Ray 12/20/20 11:46 IMPRESSION: The tip of the left-sided central catheter is at the junction of the superior vena cava and right atrium. Progressive bilateral patchy infiltrates. Electronically Signed: Keagan Long MD at 12:27 EDT , Service support , Physical Exam Const alert, oriented x3 and no apparent distress General Appearance: cooperative, well kempt and well developed Orientation / Consciousness: awake, oriented to person, oriented to place and oriented to time HEENT normocephalic, head/scalp atraumatic and moist oral mucous membranes Head and Scalp: normocephalic Eyes PERRL, EOMs intact bilaterally and conjunctivae normal Neck nuchal rigidity, supple, no JVD and thyroid normal General: trachea midline Resp normal respiratory effort, no retractions and no use of accessory muscles Resp Narrative: Breath sounds are distant bilaterally Auscultation: Negative for rales, rhonchi or wheezes Cardio regular rate, regular rhythm, S1 normal heart sound, S2 normal heart sound, no murmurs, no rub, no gallops and no clicks GI normal to inspection, nondistended, normoactive bowel sounds, soft to palpation, non-tender and non-distended Extremity normal to inspection and no clubbing, cyanosis or edema Skin no rashes or lesions noted General Skin Exam: no breakdown Neuro oriented x3, CN's II-XII intact bilaterally, no focal motor deficits and no sensory deficits noted Sensorium / Orientation: awake and alert Speech: speech normal Psych thought process normal and affect normal Assessment & Plan Assessment/Plan (1) COVID-19: (2) Respiratory failure with hypoxia: QUALIFIERS: Chronicity: acute on chronic Qualified Code(s): J96.21 - Acute and chronic respiratory failure with hypoxia PLAN: 1. COVID-19 pneumonia-patient was transferred to the ICU, he does not need mechanical ventilation at this time but I told his that a transition to the ventilator can happen at any time. #2 acute on chronic diastolic congestive heart failure-patient has been seen by nephrology and is undergoing dialysis #3 acute on chronic hypoxic respiratory failure-pulse ox will be monitored, pulmonary medicine is participating in his care #4 chronic kidney disease stage IV-labs will be monitored #5 exacerbation of COPD-continue present treatment #6 type 2 diabetes Charges/Coding Visit Charges Inpatient E&M: 23328 Subs Hosp L2
[2020-12-20 22:06] LABS: Bedside Glucose 164 mg/dL (70-110)
[2020-12-20] MEDS: LORazepam 2 MG/ML Syringe 0.5 MG IV (22:42)
--- NOTE | 2020-12-20 23:03 | RAD_ITS ---
EXAM: XR CHEST, 1 VIEW : 1950 CLINICAL INDICATION: To confirm ET placement -- Call wet read to MD TECHNIQUE: Frontal view of the chest. This report was created using [employer] report generation technology. COMPARISON: 12/20/2020 at 1141 hrs. FINDINGS: LUNGS AND PLEURAL SPACES: There is vascular congestion with bilateral airspace disease. No pneumothorax. No effusion. HEART: Cardiac silhouette is enlarged in size. MEDIASTINUM: Central airways and mediastinal contour are unremarkable. BONES/JOINTS: Unremarkable. SOFT TISSUES: Unremarkable. TUBES, LINES AND DEVICES: Endotracheal tube is been placed with the distal tip 6.5 cm above the franchesca. Left jugular catheter is in place with the distal tip overlying the superior vena cava. Nasogastric tube is in place with the distal tip proximal stomach. RAD/Chest 1 View (Portable) IMPRESSION: 1. Cardiomegaly with increasing airspace disease which may represent progression of edema or pneumonia. 2. Support structures in good position. at 0055 Reported and signed by: Jermain Delgado MD Electronically Signed: Jermain Delgado MD at 0:54 EDT Tel , Service support ,
[2020-12-20] MEDS: Midazolam 2 MG/2 ML Syringe 4 MG IV (23:20)
[2020-12-20] MEDS: Etomidate 20 MG/10 ML Vial IV (23:21)
[2020-12-20] MEDS: Succinylcholine Chloride 200 MG/10 ML Vial 100 MG IV (23:21)
[2020-12-20] MEDS: Propofol 10MG/Ml 1,000 MG/100 ML Bottle 31.1 MG CONT INF (23:30)
--- NOTE | 2020-12-20 23:37 | PN.HOSP_ITS ---
Hospitalist Note Intubation Note: Patient with evidence of respiratory and/or impending distress. Medications administered: Etomidate 20 mg, Versed 4 mg, cisternal: 100 ETT size: 7.5 Patient intubated in standard fashion with visualization of the vocal cords and passage of the ETT; however, irregular color change with notable perspiration inside therefore removed and patient again intubated with again visualization of the vocal cords and passage of the ET tube however did eventually have to rotate the ET tube as passing through the vocal cords with suspected likely mild degree of stenosis. Positioning verified with auscultation. Post-intubation CXR requested. Patient maintained in the ICU with update to ICU physician. Will continue sedation w/ propofol and fentanyl. Did eventually have to decrease propofol down some secondary to hypotension. Patient still maintaining oxygenation 83 to 86%, will trial Suresh, electrical laboratory technician updated. Procedures Hospitalists Procedures: 48920 Insert Emergency Airway
[2020-12-21] VITALS (22 sets, daily range): BP systolic 56–107; BP diastolic 39–53; PULSE 0–97; RESP 14–37; TEMP 37.3–37.6; O2SAT 71–90
--- NOTE | 2020-12-21 00:34 | NURSING ---
pt's , Diana was called prior to intubation. pt was able to acknowledge phone call and was appreciative of call and getting to talk to patient.
[2020-12-21 01:21] LABS: CPK Total, Creatine Kinase 285 U/L (39-308); Triglycerides 199 mg/dL
[2020-12-21 01:26] LABS: Base Excess -7 mmol/L (-2 to +2); Bicarbonate 19.3 mmol/L (22-26); Blood Gas Specimen Type ART; FI02 100; Mode AC; O2 Delivery Device Adult Vent; PO2 59 mmHG (75-100); RR 14; SITE R Brach; SO2 89 % (95-99); Total Carbon Dioxide 20 mmol/L; Vt 450; pCO2 36.3 mmHg (35-45); pH 7.33 (7.35-7.45)
--- NOTE | 2020-12-21 01:50 | RAD_ITS ---
EXAM: XR CHEST, 1 VIEW : 1950 CLINICAL INDICATION: ETT placement TECHNIQUE: Frontal view of the chest. This report was created using [employer] report NPS technology. COMPARISON: 12/20/2020 FINDINGS: LUNGS AND PLEURAL SPACES: There is bilateral airspace disease greater on the right. No pneumothorax. No effusion. HEART: Unremarkable. Cardiac silhouette not enlarged. MEDIASTINUM: Central airways and mediastinal contour are unremarkable. BONES/JOINTS: Unremarkable. SOFT TISSUES: Unremarkable. TUBES, LINES AND DEVICES: Endotracheal tube has been advanced with the distal tip now 3 cm above the franchesca. Left jugular catheter is in stable position. Nasogastric tube is in place the distal tip of the proximal stomach. RAD/Chest 1 View (Portable) IMPRESSION: Slight advancement of the endotracheal tube which is now in good position. There is no change in the appearance of the chest. at 0247 Reported and signed by: Jermain Delgado MD Electronically Signed: Jermain Delgado MD at 2:46 EDT Tel , Service support ,
[2020-12-21] MEDS: Propofol 10MG/Ml 1,000 MG/100 ML Bottle 31.1 MG CONT INF (02:04)
--- NOTE | 2020-12-21 03:11 | NURSING ---
spoke with , Diana on phone for verbal consent for central line. also discussed CPR and stated her and Mt had talked and he does not want CPR if his heart were to stop. will discuss this with MD. support provided and will call when sterile procedure is done so she can visit.
--- NOTE | 2020-12-21 04:08 | NURSING ---
Dr duron at bedside attempting to place central line.
--- NOTE | 2020-12-21 04:16 | RAD_ITS ---
STUDY: X-RAY CHEST REASON FOR EXAM: Male, 70 years old. Central line placement TECHNIQUE: Single AP portable view of the chest. COMPARISON: 12/21/2020 at 203 H. 12/20/2020 FINDINGS: Interval placement of a right internal jugular approach catheter coiling at the subclavian internal jugular junction with the catheter coursing over the right subclavian vein. Repositioning recommended. Endotracheal tube tip is at least 4.5 cm superior to the franchesca. Stable left internal jugular vein catheter. The enteric tube courses inferior to the left diaphragm, its tip is not included or visualized. Right greater than left airspace disease, not significantly changed since most recent exam. Volume loss in the right hemithorax suspected with mild shift of heart, mediastinum and trachea to the right. There is no demonstrated pleural abnormality. Sternal cerclage wires and an prior TAPVR. Normal mediastinum and ursula. Normal visualized pulmonary arteries. Normal visualized aortic arch and descending thoracic aorta. There are diffuse degenerative changes of the visualized thoracic spine. Normal visualized ribs, clavicles, and shoulders. There is no demonstrated abnormality of the visualized soft tissue structures of the upper abdomen. RAD/CXR for Line Placement IMPRESSION: Right internal jugular catheter coils at the jugular subclavian vein junction and courses over the right subclavian vein. Repositioning recommended. No significant change in airspace disease. Other lines as above. Electronically Signed: Beryl Walter MD at 6:03 EDT , Service support ,
--- NOTE | 2020-12-21 04:17 | NURSING ---
Dr duron placed central line successfully at this time. Chest xray ordered.Sterile field was maintained throughout procedure.
--- NOTE | 2020-12-21 04:53 | PCM.HOSP.N ---
Hospitalist Note CODE status: Given patient's significant decline, recent intubation and central line placement with ongoing significant pressor therapy necessity, discussed CODE status at length including difference between FULL code, DNR-CCA and DNR-CC status. Following discussions about the differences in these status, requested transition to DNR-CCA, no re-intubation status. Discussed with that likely patient would not do well and if he continues to decline she would be amenable to re-discussion and likely transition to DNR-CC at that time. Dr. Reid, healthcare customer service updated on current patient status. Advanced Care Planning Face to Face Time: 16 minutes. Procedures Hospitalists Procedures: [id number] Advncd Care Plan 30 Min
--- NOTE | 2020-12-21 04:55 | PCM.HOSP.N ---
Hospitalist Note Central line note: Patient with ongoing hypotension in the setting of respiratory failure secondary to bilateral pneumonia secondary to acute COVID-19. Patient started on norepinephrine however elevated doses required above recommended usage with large bore peripheral IVs. Consent obtained from patient's spouse for placement of R IJ central line. Region prepped and draped in standard fashion. US guidance used to obtain access, guidewire threaded without issue, central line catheter placed over guidewire and wire removed w/ cap placed. Lines again drawn and flushed without difficulty. Central line sutured in place. CXR ordered. Procedures Hospitalists Procedures: [id number] Insert Non-tunnel CV Cath
--- NOTE | 2020-12-21 05:01 | PN.CC_ITS ---
Assessment & Plan Assessment/Plan (1) Respiratory failure with hypoxia: QUALIFIERS: Chronicity: acute on chronic Qualified Code(s): J96.21 - Acute and chronic respiratory failure with hypoxia (2) COVID-19: PLAN: RECOMMENDATIONS: 1. Continue assist control mode of mechanical ventilation and wean FiO2/PEEP for saturations greater than 90%. 2. Replacement for venous catheter if okay with the patient's . 3. Continue Levophed to maintain hemodynamic stability. 4. May need to consider pharmacologic paralysis 5. Continue Decadron, Lovenox and bronchodilator therapy. IMPRESSIONS: 1. Acute hypoxemic respiratory failure secondary to COVID-19 pneumonia The patient presented to the hospital with progressive Covid symptoms, despite having reportedly been vaccinated previously. Unfortunately, due to delayed presentation and underlying renal insufficiency, the patient was not deemed to be a candidate for remdesivir or baricitinib. Ultimately, the patient continued to decompensate from a respiratory perspective, despite the use of noninvasive positive pressure ventilatory support. He was subsequently transferred to the medical intensive care unit on December 20, where he was intubated. Despite aggressive measures, the patient continued to decompensate clinically and following a family discussion with the patient's , was ultimately made DNR comfort care. He was terminally extubated on the morning of December 21 and at 6:35 AM. 2. Acute on chronic kidney disease Likely secondary to ATN in the setting #1. Continue medical management per nephrology recommendations. 3. Personal history of asthma/obstructive sleep apnea/hypertension/GERD/obesity Complicates care, management, recovery and prognosis. Continue home medications as indicated. TIME: 40 minutes of critical care time, independent of procedures, was spent address ing the patient's acute hypoxemic respiratory failure secondary to COVID-19 pneumonia, acute on chronic kidney disease, review of all data and collaboration with the care team. ([id number]) Subjective Subjective The patient was seen and examined at the bedside this morning. Events from the last 24 hours have been reviewed. On the evening of December 20, despite having received a partial hemodialysis treatment, the patient continued to decompensate from a respiratory perspective. He was subsequently transferred to the medical intensive care unit. The patient eventually required intubation. He subsequently became hypotensive with refractory hypoxemia. After discussing his overall clinical status with the patient's , his CODE STATUS was updated to DNR CCA. Although a right IJ central venous catheter was placed, the central line coiled back into the subclavian and therefore had to be removed. When the patient's was contacted regarding the need to place another central venous catheter, she decided at that time to transition to comfort care measures only. The patient was subsequently premedicated with IV morphine and Ativan. He was terminally extubated and at 6:35 AM on December 21. His was updated. Objective Data Objective Data The patient's most recent lab work, culture data and imaging studies have all been personally reviewed. Rapid coronavirus antigen testing was positive on December 17. Vital Signs: Vital Signs Temp Pulse Resp BP Pulse Ox 99.7 F H 88 14 73/52 L 78 12/21/20 04:00 12/21/20 04:00 12/21/20 04:00 12/21/20 04:15 12/21/20 04:00 Oxygen Flow Rate (L/min) 92 Oxygen Delivery Method Mechanical Ventilator Weight: 103.6 kg Body Mass Index (BMI) 33.7 Intake & Output: Intake and Output for Last 24 Hours 12/19/20 12/20/20 12/21/20 23:59 23:59 23:59 Intake Total 1560 / 1760 557.78 / 575.56 391.41 / 391.41 Output Total 1150 / 1550 2600 / 2600 300 / 300 Balance 410 / 210 -2042.22 / -2024.44 91.41 / 91.41 Lab / Micro Data Attestation: I reviewed the patient's lab results. Result Diagrams: 12/21/20 05:00 12/21/20 05:00 Labs: Laboratory Results - last 24 hr 12/19/20 05:06: Total Creatine Kinase 285, Triglycerides 199 12/20/20 06:30: POC Glucose 206 H 12/20/20 11:41: POC Glucose 126 H 12/20/20 15:00: Hep Bs Antigen Non-Reactive 12/20/20 16:36: POC Glucose 143 H 12/20/20 21:48: POC Glucose 164 H Micro: Microbiology 12/17/20 01:08 Blood Culture (Wb) - Left Hand Blood Culture - Preliminary No growth in 48 hours. 12/17/20 00:36 Blood Culture (Wb) - Arm Right Blood Culture - Preliminary No growth in 48 hours. 12/17/20 00:59 Nasal Secretion SARS-CoV-2 Antigen (Rapid) - Final SARS-CoV-2 (COVID 19) ABG Data ABG results: ABG 12/21/20 01:19 Specimen Type ART Sample Site R Brach pH 7.33 L Bicarbonate Actual 19.3 L Total CO2 20 Base Excess -7 L O2 Saturation 89 L O2 % 100 ABG pCO2 36.3 ABG pO2 59 L Respiration Rate 14 O2 Delivery Device Adult Vent Vent Mode AC Tidal Volume 450 Radiography Diagnostic Testing: Radiology Impression Chest X-Ray 12/20/20 11:46 IMPRESSION: The tip of the left-sided central catheter is at the junction of the superior vena cava and right atrium. Progressive bilateral patchy infiltrates. Electronically Signed: Keagan Long MD at 12:27 EDT , Service support , Chest X-Ray 12/20/20 23:03 IMPRESSION: 1. Cardiomegaly with increasing airspace disease which may represent progression of edema or pneumonia. 2. Support structures in good position. at 0055 Reported and signed by: Jermain Delgado MD Electronically Signed: Jermain Delgado MD at 0:54 EDT Tel , Service support , Chest X-Ray 12/21/20 01:50 IMPRESSION: Slight advancement of the endotracheal tube which is now in good position. There is no change in the appearance of the chest. at 0247 Reported and signed by: Jermain Delgado MD Electronically Signed: Jermain Delgado MD at 2:46 EDT Tel , Service support , Physical Exam Const General Appearance: in distress, ill appearing and patient mechanically ventilat ed Nutritional Appearance: obese HEENT normocephalic and head/scalp atraumatic Mouth: endotracheal tube in place and OG tube in place Eyes PERRL and EOMs intact bilaterally Neck supple General: trachea midline and CVC in place Resp Resp Narrative: Remains hypoxemic despite maximum ventilatory support. Effort and Inspection: tachypneic Auscultation: diminished lung sounds; Negative for rales, rhonchi or wheezes Cardio S1 normal heart sound and S2 normal heart sound Rate: tachycardic GI normal to inspection, nondistended, normoactive bowel sounds Extremity no clubbing, cyanosis or edema Skin no rashes or lesions noted Neuro Sensorium / Orientation: sedated on vent Charges/Coding Procedures Hospitalists Procedures: [id number] Critial Care 1st Hr
[2020-12-21 05:10] LABS: Absolute Lymphocyte Count 0.42 X10^3/uL (0.83-4.51); Absolute Neutrophil Count 18.7 X10^3/uL (2.0-7.7); Basophil# 0.03 X10^3/uL; Basophil% 0.1 % (0-1); Hematocrit 38.1 % (40-54); Hemoglobin 11.8 g/dL (13.0-16.5); Lymphocyte # 0.42 X10^3/ul (0.83-4.51); Mean Corpuscular Hgb 29.9 pg (27.0-32.0); Mean Corpuscular Volume 96.5 fL (80-94); Mean Platelet Vol. 11.8 fl (6.2-12.0); Monocyte# 1.68 X10^3/uL; Monocyte% 7.9 % (0-10); NRBC Flagged by Analyzer 0.9 % (0-5); Neutrophil # 18.71 X10^3/uL (2.7-7.7); Neutrophil % 88.6 % (47-70); POSITIVE DIFFERENTIAL YES; POSITIVE MORPHOLOGY YES; Platelet Count 178 K/mm3 (150-450); RBC Distribution Width CV 14.7 % (11.6-14.6); RBC Distribution Width SD 52.3 fl (35.1-43.9); Red Blood Count 3.95 M/mm3 (4.6-6.2); White Blood Count 21.1 K/mm3 (4.4-11.0)
[2020-12-21] MEDS: Propofol 10MG/Ml 1,000 MG/100 ML Bottle 24.9 MG CONT INF (05:10)
[2020-12-21 05:12] LABS: Differential Indicated SCAN CRITERIA MET
[2020-12-21] MEDS: 0.9% Saline Lock 10 ML Syringe IV (05:16)
[2020-12-21 05:28] LABS: Tear Drop Cell 2+
--- NOTE | 2020-12-21 05:30 | NURSING ---
Dr Reid aware of BP's levophed currently running through a peripheral at 25mc, Central line placed by Dr Bustamante was not able to be used. Dr reid will attempt to place a femoral line this AM and then have a PICC line placed.
[2020-12-21 05:51] LABS: ALB/GLOB Ratio 0.4 RATIO (0.9-2.4); AST(SGOT) 69 U/L (15-37); Alanine Aminotransfer ALT/SGPT 40 U/L (16-61); Albumin, Serum 2.1 g/dL (3.2-5.0); Alkaline Phosphatase 147 U/L (45-117); Anion Gap 9 (5-15); BUN 139 mg/dL (7-18); BUN/Creat Ratio 22.8 RATIO (10-20); Calcium,Total 6.9 mg/dL (8.5-10.1); Chloride 107 mmol/L (98-107); EST Glomerular Filtration Rate 10 mL/min (>60); Est Glom Filt Rate - Afr Amer 12 mL/min (>60); Globulin 4.9 g/dL (2.2-4.2); Glucose 137 mg/dL (74-106); Potassium 5.1 mmol/L (3.5-5.1); Sodium Level 139 mmol/L (136-145)
--- NOTE | 2020-12-21 06:00 | NURSING ---
this RN spoke with Diana about needing to try another site for central line placement. stated that she needs to honor pt's wishes by not continuing interventions. support provided. would like to change status to DNR. Dr. Reid made aware.
[2020-12-21] MEDS: TITRATION PARAMETER CHANGE 1 EACH IV (06:29)
[2020-12-21] MEDS: LORazepam 2 MG/ML Syringe IV (06:29)
[2020-12-21] MEDS: Morphine 4 MG/ML Syringe IV (06:29)
--- NOTE | 2020-12-21 06:36 | NURSING ---
decided to make the patient a DNR-CC. Care was withdrawn at 06:25am and patient was Asystole at 06:35am.
[2020-12-21 12:43] LABS: Pathologist Review Reviewed
--- NOTE | 2020-12-22 19:51 | PCM.DEATH ---
Preliminary Cause of Preliminary Cause of Preliminary Cause of : Hypoxia secondary to COVID-19 pneumonia with hemodynamic shock Date of Admission: 12/17/20 Principle Diagnosis Problem List: Active and Suspected Problems (Updated 12/20/20 @ 10:[address] Carolyn Joyce MD) Acute kidney injury (Acute) Respiratory failure with hypoxia (Acute) Congestive heart failure (Acute) Hypoxemia (Acute) COVID-19 (Acute) Problem with dialysis access (Acute) Discharge diagnosis: #1 COVID-19 pneumonia #2 acute on chronic hypoxic respiratory failure secondary to COVID-19 pneumonia #3 acute renal failure requiring dialysis #4 chronic obstructive pulmonary disease #5 type 2 diabetes #6 coronary artery disease Hospital Course This 70-year-old white male was seen in the emergency room at [facility] [place] with a chief complaint of shortness of breath. Patient had multiple medical problems including COPD, chronic hypoxic respiratory failure, stage IV chronic kidney disease, and diabetes mellitus. Work-up in the emergency room revealed the patient had COVID-19 pneumonia, he was admitted to PCU and was given dexamethasone, he was not a candidate for remdesivir or baricitinib due to his poor renal function. Patient status declined while on PCU, he was seen in consultation by nephrology who had a temporary dialysis catheter inserted and the patient began dialysis. The patient did not improve however and had to be transferred to ICU for further care. Patient status in ICU deteriorated over the next few hours and he had to be intubated, discussions were carried out with the patient's who finally decided that the patient would be a comfort care only and requested the patient be terminally extubated. Patient was terminally extubated on 12/21/2020. He was examined on 12/21/2020 and found to be without respirations and blood pressure, no heartbeat was detected. He was pronounced at 6:35 AM. Visit Charges Inpatient E&M: 89633 Disch Hosp
== END 2020-12-21 10:15 | DRG 208 ==
LOC: ED 04:58 → PCU 05:38 → ICU 12-20 16:43
PROVIDERS: Family Medicine; Internal Medicine Nephrology; Admitting Provider Hospitalist; Emergency Provider Emergency Medicine; PCP Internal Medicine; Visit Provider Internal Medicine
DX: U07.1 COVID-19 (principal); J12.82 Pneumonia due to coronavirus disease 2019; J96.21 Acute and chronic respiratory failure with hypoxia; I50.33 Acute on chronic diastolic (congestive) heart failure; N17.0 Acute kidney failure with tubular necrosis; I13.0 Hypertensive heart and chronic kidney disease with heart failure and stage 1 through stage 4 chronic kidney disease, or unspecified chronic kidney disease; N18.4 Chronic kidney disease, stage 4 (severe); J44.1 Chronic obstructive pulmonary disease with (acute) exacerbation; J44.0 Chronic obstructive pulmonary disease with (acute) lower respiratory infection; E11.22 Type 2 diabetes mellitus with diabetic chronic kidney disease; E11.65 Type 2 diabetes mellitus with hyperglycemia; I95.9 Hypotension, unspecified; I35.0 Nonrheumatic aortic (valve) stenosis; I25.10 Atherosclerotic heart disease of native coronary artery without angina pectoris; E78.00 Pure hypercholesterolemia, unspecified; M19.90 Unspecified osteoarthritis, unspecified site; K21.9 Gastro-esophageal reflux disease without esophagitis; G47.33 Obstructive sleep apnea (adult) (pediatric); E66.9 Obesity, unspecified; Z99.2 Dependence on renal dialysis; Z91.15 Patient's noncompliance with renal dialysis; Z79.4 Long term (current) use of insulin; Z99.81 Dependence on supplemental oxygen; Z79.899 Other long term (current) drug therapy; Z87.891 Personal history of nicotine dependence; Z96.653 Presence of artificial knee joint, bilateral; Z95.1 Presence of aortocoronary bypass graft; Z95.5 Presence of coronary angioplasty implant and graft
CPT/HCPCS: 31500; 31720; 36415; 36600; 71045; 80048; 80053; 82550; 82803; 82962; 83605; 83880; 84478; 84484; 85025; 87040; 87070; 87077; 87186; 87205; 87340; 87426; 90937; 93005; 94002; 94003; 94640; 97802; 99251; 99285; J7050; A4216; C1751; C1752; G0257; G0463; J0330; J1940; J2405; J3010